=== PATIENT | male | born 1990 | race Hispanic/Latino ===

== ENCOUNTER 2023-01-06 11:27 | Emergency (ER) | payer BC ==
--- OUTSIDE RECORDS SUMMARY | 2023-01-06 11:33 | XMS REPORT | Continuity of Care Document ---
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 Reference Range Interpretation Comments Troponin-I (test code no gt See_Comment [Auto mated message] The = Troponin-I) system which g enerated this result transmit denise reference range : <=0.40. The reference r tc was not used to interpr et this result as miguel l/abnormal. [facility] [employer] [id number] 16:21:00 Test Item Value Reference Range Interpretation Comments CK MB (test code = CK MB) no gt 0.5-3.6 [facility] [employer] [id number] 16:21:00 Test Item Value Reference Range Interpretation Comments Total CK (test code = Total CK) 87 12-191 [facility] [employer] [id number] 16:21:00 Test Item Value Reference Range Interpretation Comments CK MB Index (test no gt See_Comment [Automate d message] The code = CK MB Index) system w [facility] generated this result transmit denise reference range : <=2.5. The reference range was not used to interpr et this result as miguel l/abnormal. [employer] [id number] 16:21:00 Test Item Value Reference Range Interpretation Comments Lipase Lvl (test code = Lipase Lvl) 132 73-393 [facility] [employer] [id number] 16:21:00 Test Item Value Reference Range Interpretation Comments eGFR (test code = eGFR) 99 [facility] [employer] [id number] 16:21:00 Test Item Value Reference Range Interpretation Comments Alk Phos (test code = Alk Phos) 65 39-136 [facility] [employer] [id number] 16:21:00 Test Item Value Reference Range Interpretation Comments Bili Total (test code = Bili Total) 0.5 0.2-1.3 [facility] Split2018-08-09 16:21:00 Test Item Value Reference Range Interpretation Comments A/G Ratio (test code = A/G Ratio) 1.1 1 0.7-1.6 [facility] [employer] [id number] 16:21:00 Test Item Value Reference Range Interpretation Comments Globulin (test code = Globulin) 3.8 2.7-4.2 [facility] Split2018-08-09 16:21:00 Test Item Value Reference Range Interpretation Comments B/C Ratio (test code = B/C Ratio) 15 1 6-25 [facility] [employer] [id number] 16:21:00 Test Item Value Reference Range Interpretation Comments AST (test code = AST) 17 See_Comment [Auto mated message] The system which ge nerated this result transmit denise reference range : <=37. The reference range was not used to interpr et this result as miguel l/abnormal. [facility]2018-08-09 16:21:00 Test Item Value Reference Range Interpretation Comments Total Protein (test code = Total 8.1 6.4-8.4 Protein) [facility]2018-08-09 16:21:00 Test Item Value Reference Range Interpretation Comments Creatinine Lvl (test code = Creatinine 1.01 0.50-1.40 Lvl) [facility]2018-08-09 16:21:00 Test Item Value Reference Range Interpretation Comments Potassium Lvl (test code = Potassium 4.3 3.5-5.1 Lvl) [facility]2018-08-09 16:21:00 Test Item Value Reference Range Interpretation Comments Sodium Lvl (test code = Sodium Lvl) 141 135-145 [facility]2018-08-09 16:21:00 Test Item Value Reference Range Interpretation Comments BUN (test code = BUN) 15 7-22 [facility]2018-08-09 16:21:00 Test Item Value Reference Range Interpretation Comments AGAP (test code = AGAP) 12.3 10.0-20.0 [facility]2018-08-09 16:21:00 Test Item Value Reference Range Interpretation Comments Chloride Lvl (test code = Chloride Lvl) 105 95-109 [facility]2018-08-09 16:21:00 Test Item Value Reference Range Interpretation Comments Albumin Lvl (test code = Albumin Lvl) 4.3 3.5-5.0 [facility]2018-08-09 16:21:00 Test Item Value Reference Range Interpretation Comments Glucose Lvl (test code = Glucose Lvl) 138 70-99 [facility]2018-08-09 16:21:00 Test Item Value Reference Range Interpretation Comments ALT (test code = ALT) 28 See_Comment [Auto mated message] The system which ge nerated this result transmit denise reference range : <=65. The reference range was not used to interpr et this result as miguel l/abnormal. [facility]2018-08-09 16:21:00 Test Item Value Reference Range Interpretation Comments Calcium Lvl (test code = Calcium Lvl) 9.1 8.5-10.5 [facility]2018-08-09 16:21:00 Test Item Value Reference Range Interpretation Comments CO2 (test code = CO2) 28 24-32 [facility]2018-08-09 16:21:00 Test Item Value Reference Range Interpretation Comments Magnesium Lvl (test code = Magnesium 2.1 1.8-2.4 Lvl) [id number] 16:21:00 Test Item Value Reference Range Interpretation Comments Hgb (test code = Hgb) 16.0 14.0-18.0 [id number] 16:21:00 Test Item Value Reference Range Interpretation Comments MCV (test code = MCV) 92.3 80.0-94.0 [facility] CenterNgvvgueQGARKXIZBB7885-28-18 16:21:00 Test Item Value Reference Range Interpretation Comments Hct (test code = Hct) 47.1 42.0-54.0 [facility] CenterZbjuphdJOUJYQHTFH9930-97-13 16:21:00 Test Item Value Reference Range Interpretation Comments MCHC (test code = MCHC) 34.0 32.0-36.0 [facility] [id number] 16:21:00 Test Item Value Reference Range Interpretation Comments MCH (test code = MCH) 31.4 pg 27.0-31.0 [facility] C[id number] 16:21:00 Test Item Value Reference Range Interpretation Comments MPV (test code = MPV) 7.7 7.4-10.4 [facility] Cent[id number] 16:21:00 Test Item Value Reference Range Interpretation Comments RDW (test code = RDW) 13.1 11.5-14.5 [facility] [id number] 16:21:00 Test Item Value Reference Range Interpretation Comments Platelet (test code = Platelet) 236 133-450 [facility] CenterZrfzknqVFZQEZAUTI1077-60-07 16:21:00 Test Item Value Reference Range Interpretation Comments WBC (test code = WBC) 5.9 3.7-10.4 [facility] Cent[id number] 16:21:00 Test Item Value Reference Range Interpretation Comments RBC (test code = RBC) 5.10 4.70-6.10 [place] [id number] 16:21:00 Test Item Value Reference Range Interpretation Comments Basophils # (test code 0.1 See_Comment [Aut omated message] The = Basophils #) system which generated this result tra nsmitted reference range : <=0.2. The reference r tc was not used to int erpret this result as normal/abnormal . [facility] CenterAxsvzuvJLEFPGFMGB4752-58-34 16:21:00 Test Item Value Reference Range Interpretation Comments Monocytes # (test code 0.5 See_Comment [Aut omated message] The = Monocytes #) system which generated this result tra nsmitted reference range : <=0.8. The reference r tc was not used to int erpret this result as normal/abnormal . [facility] CenterHyvgexrNDAHWNUFQV1381-04-00 16:21:00 Test Item Value Reference Range Interpretation Comments Eosinophils # (test code 0.1 See_Comment [A utomated message] The = Eosinophils #) system whic h generated this result tra nsmitted reference range : <=0.5. The reference r tc was not used to int erpret this result as normal/abnormal . [facility] [id number] 16:21:00 Test Item Value Reference Range Interpretation Comments Lymphocytes # (test code = Lymphocytes 2.3 1.0-5.5 #) [facility] CenterSjtofklUVFFHKFEUO8594-80-72 16:21:00 Test Item Value Reference Range Interpretation Comments Segs (test code = Segs) 51.8 45.0-75.0 [facility] CenterAoeiwyuKZJRZZTGIT6136-90-79 16:21:00 Test Item Value Reference Range Interpretation Comments Monocytes (test code = Monocytes) 7.9 2.0-12.0 [facility] C[id number] 16:21:00 Test Item Value Reference Range Interpretation Comments Lymphocytes (test code = Lymphocytes) 38.2 20.0-40.0 [facility] CenterK[id number] 16:21:00 Test Item Value Reference Range Interpretation Comments Basophils (test code = 1.0 See_Comment [Aut omated message] The Basophils) system which ge nerated this result tra nsmitted reference range : <=1.0. The reference r tc was not used to int erpret this result as normal/abnormal . [facility] C[id number] 16:21:00 Test Item Value Reference Range Interpretation Comments Eosinophils (test code = 1.1 See_Comment [A utomated message] The Eosinophils) system which ge nerated this result tra nsmitted reference range : <=4.0. The reference r tc was not used to int erpret this result as normal/abnormal . [id number] 16:21:00 Test Item Value Reference Range Interpretation Comments Neutrophils # (test code = Neutrophils 3.1 1.5-8.1 #) [facility] AND [id number] 16:50:00 Test Item Value Reference Range Interpretation Comments UA Blood (test code = Negative (08/27/17 11:50 UA Blood) AM) [facility] AND [id number] 16:50:00 Test Item Value Reference Range Interpretation Comments UA Nitrite (test code Negative (08/27/17 11:50 = UA Nitrite) AM) [facility] AND [id number] 16:50:00 Test Item Value Reference Range Interpretation Comments UA Leuk Est (test Negative (08/27/17 11:50 code = UA Leuk Est) AM) [facility] AND [id number] 16:50:00 Test Item Value Reference Range Interpretation Comments UA Urobilinogen (test code = UA 0.2 0.1-1.0 Urobilinogen) [facility] AND [id number] 16:50:00 Test Item Value Reference Range Interpretation Comments UA Sq Epi (test code = UA Sq Epi) Few /LPF [facility] AND [id number] 16:50:00 Test Item Value Reference Range Interpretation Comments UA Spec Grav (test *NA*(08/27/17 11:50 AM) code = UA Spec Grav) [facility] AND [id number] 16:50:00 Test Item Value Reference Range Interpretation Comments UA Turbidity (test code = Clear (08/27/17 11:50 UA Turbidity) AM) [facility] AND [id number] 16:50:00 Test Item Value Reference Range Interpretation Comments UA Glucose (test code Negative (08/27/17 11:50 = UA Glucose) AM) [facility] AND [id number] 16:50:00 Test Item Value Reference Range Interpretation Comments UA pH (test code = UA pH) 7.0 1 5.0-8.0 [facility] AND [id number] 16:50:00 Test Item Value Reference Range Interpretation Comments UA Protein (test code Negative (08/27/17 11:50 = UA Protein) AM) [facility] AND [id number] 16:50:00 Test Item Value Reference Range Interpretation Comments UA Ketones (test code Negative *NA*(08/27/17 = UA Ketones) 11:50 AM) [facility] AND [id number] 16:50:00 Test Item Value Reference Range Interpretation Comments UA Bili (test code = Negative *NA*(08/27/17 UA Bili) 11:50 AM) [facility] AND [id number] 16:50:00 Test Item Value Reference Range Interpretation Comments UA Color (test code = Yellow *NA*(08/27/17 UA Color) 11:50 AM) [facility]2017-11-02 16:35:00 Test Item Value Reference Range Interpretation Comments B/C Ratio (test code = B/C Ratio) 8 6-25 [facility]2017-11-02 16:35:00 Test Item Value Reference Range Interpretation Comments Globulin (test code = Globulin) 3.6 2.7-4.2 [facility]2017-11-02 16:35:00 Test Item Value Reference Range Interpretation Comments A/G Ratio (test code = A/G Ratio) 1.1 0.7-1.6 [facility]2017-11-02 16:35:00 Test Item Value Reference Range Interpretation Comments AGAP (test code = AGAP) 7.0 10.0-20.0 [facility]2017-11-02 16:35:00 Test Item Value Reference Range Interpretation Comments eGFR (test code = eGFR) 117 [facility]2017-11-02 16:35:00 Test Item Value Reference Range Interpretation Comments Potassium Lvl (test code = Potassium 4.0 3.5-5.1 Lvl) [facility]2017-11-02 16:35:00 Test Item Value Reference Range Interpretation Comments Sodium Lvl (test code = Sodium Lvl) 140 135-145 [facility]2017-11-02 16:35:00 Test Item Value Reference Range Interpretation Comments Chloride Lvl (test code = Chloride Lvl) 105 95-109 [facility]2017-11-02 16:35:00 Test Item Value Reference Range Interpretation Comments ASPARTATE TRANSAMINASE 29 See_Comment [Aut omated message] (test code = ASPARTATE The s ystem which TRANSAMINASE) generated this result transmitted ref erence range: <=37. Th e reference range was not used to interpr et this result as normal/abnormal . [facility]2017-11-02 16:35:00 Test Item Value Reference Range Interpretation Comments ALANINE AMINOTRANSFERASE 49 See_Comment [A utomated message] (test code = ALANINE The sys tem which AMINOTRANSFERASE) generated this result transmitted ref erence range: <=65. Th e reference range was not used to int erpret this result as normal/abnormal . [facility]2017-11-02 16:35:00 Test Item Value Reference Range Interpretation Comments Albumin Lvl (test code = Albumin Lvl) 4.0 3.5-5.0 [facility]2017-11-02 16:35:00 Test Item Value Reference Range Interpretation Comments Alk Phos (test code = Alk Phos) 54 39-136 [facility]2017-11-02 16:35:00 Test Item Value Reference Range Interpretation Comments Bili Total (test code = Bili Total) 0.2 0.2-1.3 [facility]2017-11-02 16:35:00 Test Item Value Reference Range Interpretation Comments Total Protein (test code = Total 7.6 6.4-8.4 Protein) [facility]2017-11-02 16:35:00 Test Item Value Reference Range Interpretation Comments Calcium Lvl (test code = Calcium Lvl) 8.6 8.5-10.5 [facility]2017-11-02 16:35:00 Test Item Value Reference Range Interpretation Comments CO2 (test code = CO2) 32 24-32 [facility]2017-11-02 16:35:00 Test Item Value Reference Range Interpretation Comments Glucose Lvl (test code = Glucose Lvl) 101 70-99 [facility]2017-11-02 16:35:00 Test Item Value Reference Range Interpretation Comments Creatinine Lvl (test code = Creatinine 0.87 0.50-1.40 Lvl) [facility]2017-11-02 16:35:00 Test Item Value Reference Range Interpretation Comments BUN (test code = BUN) 7 7-22 [facility]2017-11-02 16:35:00 Test Item Value Reference Range Interpretation Comments Lipase Lvl (test code = Lipase Lvl) 127 73-393 [facility]RzwspjgGOIJMVSZHB3672-35-46 16:35:00 Test Item Value Reference Range Interpretation Comments Basophils # (test code 0.1 See_Comment [Aut omated message] The = Basophils #) system which generated this result tra nsmitted reference range : <=0.2. The reference r tc was not used to int erpret this result as normal/abnormal . [facility] CenterRmqqhojBFDFDDESQG9092-26-00 16:35:00 Test Item Value Reference Range Interpretation Comments Lymphocytes # (test code = Lymphocytes 1.6 1.0-5.5 #) [facility] CenterFoonowiTBAKFPXMUL8784-78-37 16:35:00 Test Item Value Reference Range Interpretation Comments Segs-Bands # (test code = Segs-Bands #) 3.1 1.5-8.1 [place] [id number] 16:35:00 Test Item Value Reference Range Interpretation Comments Monocytes # (test code 0.4 See_Comment [Aut omated message] The = Monocytes #) system which generated this result tra nsmitted reference range : <=0.8. The reference r tc was not used to int erpret this result as normal/abnormal . [facility] [id number] 16:35:00 Test Item Value Reference Range Interpretation Comments Segs (test code = Segs) 58.5 45.0-75.0 [facility] CenterVjhydpoRKDTEXXWFM1242-92-13 16:35:00 Test Item Value Reference Range Interpretation Comments Lymphocytes (test code = Lymphocytes) 31.4 20.0-40.0 [facility] CenterCzwpxygCICGBBYCQB8844-81-12 16:35:00 Test Item Value Reference Range Interpretation Comments Eosinophils (test code = 0.9 See_Comment [A utomated message] The Eosinophils) system which ge nerated this result tra nsmitted reference range : <=4.0. The reference r tc was not used to int erpret this result as normal/abnormal . [facility] CenterQpsxbzdWFJGLHUGHZ0677-83-99 16:35:00 Test Item Value Reference Range Interpretation Comments Basophils (test code = 1.7 See_Comment [Aut omated message] The Basophils) system which ge nerated this result tra nsmitted reference range : <=1.0. The reference r tc was not used to int erpret this result as normal/abnormal . [facility] CenterIiedssxGHKOBQSHUN3640-19-28 16:35:00 Test Item Value Reference Range Interpretation Comments Monocytes (test code = Monocytes) 7.5 2.0-12.0 [facility] CenterKfhbxjuYOIGKPBVXM5669-35-60 16:35:00 Test Item Value Reference Range Interpretation Comments MCHC (test code = MCHC) 34.0 32.0-36.0 [facility] CenterRmdgapvABZBIRLHZI2004-95-21 16:35:00 Test Item Value Reference Range Interpretation Comments MCH (test code = MCH) 31.2 pg 27.0-31.0 [facility] CenterEwvptizMJCJSMBBWO7840-88-75 16:35:00 Test Item Value Reference Range Interpretation Comments Hct (test code = Hct) 44.9 42.0-54.0 [facility] CenterBtkxcpuLKXPCCDCPZ3367-20-32 16:35:00 Test Item Value Reference Range Interpretation Comments MCV (test code = MCV) 91.8 80.0-94.0 [facility] CenterSmfmyhgXVJXIPTCSY8540-66-22 16:35:00 Test Item Value Reference Range Interpretation Comments WBC X 10x3 (test code = WBC X 10x3) 5.2 3.7-10.4 [facility] CenterBtqajzhBAJLCZCOQT0046-02-11 16:35:00 Test Item Value Reference Range Interpretation Comments Hgb (test code = Hgb) 15.3 14.0-18.0 [facility] CenterSkpzaivAFSUAXFAJR3061-07-01 16:35:00 Test Item Value Reference Range Interpretation Comments RBC X 10x6 (test code = RBC X 10x6) 4.89 4.70-6.10 [facility] CenterPgxottiSCDYQGCGCZ6280-17-27 16:35:00 Test Item Value Reference Range Interpretation Comments MPV (test code = MPV) 7.7 7.4-10.4 [facility] CenterTjwjnmoCOPBGHONDS0104-05-06 16:35:00 Test Item Value Reference Range Interpretation Comments Platelet (test code = Platelet) 210 133-450 [facility]fhawiNXEXJLXQBY0882-19-37 16:35:00 Test Item Value Reference Range Interpretation Comments RDW (test code = RDW) 13.1 11.5-14.5 [facility]16[facility] 16:35:00 Test Item Value Reference Range Interpretation Comments Grp A Strep Scr (test Negative (08/27/17 11:35 code = Grp A Strep AM) Scr) [facility] [id number] 16:35:00 Test Item Value Reference Range Interpretation Comments Influ A (test code = Negative (08/27/17 11:35 Influ A) AM) [facility] [id number] 16:35:00 Test Item Value Reference Range Interpretation Comments Influ B (test code = Negative (08/27/17 11:35 Influ B) AM) [facility]
[2023-01-06] MEDS ORDERED: KETOROLAC 30 MG/ML INJ ONE (11:57)
[2023-01-06 12:08] LABS: Absolute Lymphocytes (CBC) 1.8 K/uL (0.7-4.9); Lymphocytes % 27.5 % (15.3-44.8); MCV 91.4 fL (80-100); MPV 7.5 fL (7.6-11.3); RBC Red Blood Cell Count 5.47 M/uL (4.33-5.43)
[2023-01-06] MEDS ORDERED: ALPRAZOLAM 0.5 MG TABLET ONE (12:18)
[2023-01-06 12:28] LABS: ALT/SGPT 20 U/L (16-61); AST/SGOT 9 U/L (15-37); Albumin 4.3 g/dL (3.4-5.0); Alkaline Phosphatase 79 U/L (45-117); BUN Blood Urea Nitrogen 12 mg/dL (7-18); Bicarbonate 30 mmol/L (21-32); Bilirubin Total 0.7 mg/dL (0.2-1.0); C-Reactive Protein < 2.90 mg/L (<3.00); Glomerular Filtration Rate 109 ml/min (=/>90); Glucose Level 101 mg/dL (74-106); Potassium 3.7 mmol/L (3.5-5.1); Protein, Total 8.7 g/dL (6.4-8.2); Sodium Level 134 mmol/L (136-145)
--- NOTE | 2023-01-06 12:41 | RAD REPORT ---
EXAM DESCRIPTION: CT - Head Brain Wo Cont - 01/06/2023 12:22 pm CLINICAL HISTORY: Headache and numbness COMPARISON: none TECHNIQUE: Computed axial tomography of the head was obtained. IV contrast was not requested. All CT scans are performed using dose optimization technique as appropriate and may include automated exposure control or mA/KV adjustment according to patient size. FINDINGS: An intracranial bleed is not seen The ventricles are normal in caliber No significant hypodense areas within the brain visualized No extra-axial fluid collection is noted. Fluid within the sinuses/ mastoids is not seen IMPRESSION: No acute intracranial abnormality is seen If patient's symptoms persist MRI of the brain would be recommended
[2023-01-06] MEDS ORDERED: MIDAZOLAM HCL 2 MG/2 ML INJ ONE (12:44)
--- NOTE | 2023-01-06 12:52 | RAD REPORT ---
EXAM DESCRIPTION: [place] Single View01/06/2023 12:30 pm CLINICAL HISTORY: Chest pain COMPARISON: none FINDINGS: The lungs appear clear of acute infiltrate. The heart is normal size IMPRESSION: No acute abnormalities displayed
[2023-01-06] MEDS ORDERED: dexAMETHasone 10 MG/ML VIAL ONE (14:09)
[2023-01-06] MEDS ORDERED: dexAMETHasone 4 MG/ML VIAL ONE (14:09)
--- NOTE | 2023-01-06 14:21 | RAD REPORT ---
EXAM DESCRIPTION: MRI - Thoracic Spine W/Wo Contr - 01/06/2023 2:01 pm CLINICAL HISTORY: Numbness COMPARISON: None. TECHNIQUE: Sagittal T1 weighted, T2 weighted and T2 STIR weighted sequences were obtained. Axial T2 weighted images were obtained through each disc level. At axial block images upper thoracic spine obtained. 15 cc MultiHance administered intravenously FINDINGS: 7.3 x 2.9 centimeter enhancing mass is present within the upper posterior left pleural spa ce. The mass extends posteriorly into the posterior musculature of the upper. The mass extends along the left aspect of the thoracic spine from T1-T5. Small portion of the mass also extends to the right of the thoracic spine at this level. The mass extends into the posterior aspect of the spinal canal from T2-T4 measuring 6.4 centimeters craniocaudal length and encircling the spinal cord and compressi ng it. The mass extends into the left and right neural foramina at these levels. There are additional enhancing lesions within the left neural foramina lower thoracic spine. 2.7 centimeter enhancing lesion within the posterior right musculature midthoracic spine. 6.4 x 1.4 x 1.7 centimeter enhancing mass (cc by AP by trans) extends along the posterior aspect of T2 - T4. The masses extra medullary. Lesion involves the T9 vertebral body with pathologic ktnr-xc-iunpsvyb compression fracture. Enhancin g lesions involve multiple thoracic vertebra. There are lesion scattered throughout the remainder of the thoracic spine. IMPRESSION: Left pleural, thoracic spine, thoracic spinal canal and neural foramina in muscular enha ncing lesions consistent with metastases. Pathologic gcyc-tb-znwgqjve compression fracture T9 vertebral body Largest thoracic spine lesion predominantly involves the posterior aspect of T2-T4 measuring 6.4 cent imeters in cranial caudal length and compressing the spinal cord
--- NOTE | 2023-01-06 14:23 | RAD REPORT ---
EXAM DESCRIPTION: MRI - Lumbar Spine Wo Con - 01/06/2023 1:18 pm CLINICAL HISTORY: Numbness COMPARISON: None TECHNIQUE: Sagittal T1, T2 and STIR weighted sequences were obtained. Axial T1 and T2 sequences were obtained through the lumbar disc levels. FINDINGS: L1-2, L2-3, L3-4 and L4-5 are unremarkable Mild posterior subluxation of L5 on S1. Small to moderate central disc herniation. It does not encroa ch upon the thecal sac. It abuts the right S1 nerve root but does not displace it. Large lesion L5 vertebral body IMPRESSION: Small to moderate central disc herniation L5-S1 Large lesion L5 vertebral body compatible with metastasis
--- NOTE | 2023-01-06 14:23 | RAD REPORT ---
EXAM DESCRIPTION: MRI - C Spine Wo Cont - 01/06/2023 1:32 pm CLINICAL HISTORY: Numbness COMPARISON: None TECHNIQUE: Magnetic resonance imaging of the cervical spine was obtained. Sagittal and axial images completed. FINDINGS: No significant abnormality craniocervical junction C2-3, C3-4 and C4-5 unremarkable Small disc bulge with annular fissure C5-6. Minimal encroachment upon the thecal sac. A 7 x 4 x 7 millimeter central subligamentous disc herniation C6-7 mildly encroaches upon the thecal sac. Neural foramina are patent C7-T1 unremarkable The spinal cord is normal caliber and signal. No significant abnormal signal within the bones is noted. IMPRESSION: Small to moderate central subligamentous disc herniation C6-7
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
[2023-01-06 21:04] VITALS: TEMP 97.4
[2023-01-06 21:07] VITALS: O2SAT 98
[2023-01-06 21:08] VITALS: BP 117/81
== END 2023-01-06 17:16 | disposition short-term general hospital (02) ==
LOC: ER 11:27
DX: M54.6 Pain in thoracic spine (principal); R53.1 Weakness; G95.89 Other specified diseases of spinal cord; Z20.822 Contact with and (suspected) exposure to COVID-19
CPT/HCPCS: 87040 ×2; 85025; 36415; 80053; 86140; 70450; 71045; 72141; 72148; 72157; 96375; 96374; 99285; U0003; J1100 ×2; J2250; 72146

== ENCOUNTER 2023-02-16 19:27 | Emergency (ER) | payer BC ==
--- OUTSIDE RECORDS SUMMARY | 2023-02-16 20:08 | XMS REPORT | Continuity of Care Document ---
:1990 Author Organization [facility] t Address [address] [place] [address] [place] [address] Care Team Providers Name Role Phone KATH LERMA Primary Care Physician Unavailable NICOLE CASTELLANOS Attending Clinician Unavailable NAOMY BUTCHER Attending Clinician Unavailable Nicole Castellanos MD Attending Clinician Virtual, Surgeon Attending Clinician Unavailable Christian CHAPA, Sally Thomas Attending Clinician Veronica Kirkland MD Attending Clinician [phone] Yuni CHAPA, Tra Barbosa Attending Clinician Cindy Emmanuel MD Attending Clinician CINDY EMMANUEL Attending Clinician Unavailable Jarred Branch RN Attending Clinician Unavailable Naomy Butcher NP Attending Clinician NICOLE CASTELLANOS Attending Clinician Unavailable Gogo CHAPA, José Manuel Attending Clinician Fazal Dhaliwal MD Attending Clinician VERONICA KIRKLAND Attending Clinician Unavailable Rubina Mireles MD Attending Clinician Bruna Adkins Attending Clinician Som Kamara MD Attending Clinician Corazon Monteiro Attending Clinician Ubaldo Hanley Attending Clinician Tahir Odonnell Attending Clinician Tahir Garcia Attending Clinician Physician, No Primary or Family Admitting Clinician UnavailNICOLE Moses Admitting Clinician Unavailable SALLY ALEXANDRA Admitting Clinician Unavailable NORBERT, FAZAL BARAHONA Admitting Clinician Unavailable Payers Payer Name Policy Type Policy Number Effective Date Expiration Date S dany BCBS ADV HMO [id number] 2022 EXCHANGE 00:00:00 Problems Condition Condition Condition Status Onset Resolution Last Treating Co mments Source Name Details Category Date Date Treatment Clinician Date 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 [facility] 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, lymphoma, 00 Cent er unspecifie unspecifie d body d body region region 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[facility] large B large B nce 3-30 [facility] cell cell 00:00: Medical lymphoma lymphoma 00 Center Anxiety Anxiety Disease Recurre [facility] n[facility] 3-14 [facility] 00:00: Medical 00 Center GERD GERD Disease Recurre [facility] (gastroeso (gastroeso nce 3-14 [place] kes phageal phageal 00:00: Medical reflux reflux 00 Center disease) disease) Spinal Spinal Disease Active [facility] cord cord 3-14 [facility] compressio compressio 00:00: Me dical n due to n due to 00 Center 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 12/21/2018 [facility] History of History Problem Resolve 2018-12-26 Memoria - of - d 01:41:11 l pneumonia pneumonia Herm rupinder (context-d (context-d ependent ependent category) category) Resolved Problem 12/26/2018 [facility] History of History Problem Resolve 2018-12-26 Memoria - surgery of - d 01:41:11 l (context-d surgery Chayo nn ependent (context-d category) ependent category) Resolved Problem 12/26/2018 [facility] Peritonsil Peritonsi Problem Resolve 2018-12-26 Memoria lar llar d 01:41:11 l abscess abscess [place] (disorder) (disorder) Resolved Problem 12/26/2018 [facility] Cord Cord Disease Resolve 2023-01-06 2023-01-[address] [facility] [address] compressio compressio d 3-14 00:00:00 22:02:03 [facility] n 00:00: Medical 00 Center History of Past Illness Condition Condition Condition Status Onset Resolution Last Treating Co mments Source Name Details Category Date Date Treatment Clinician Date Dorsalgia, Dorsalgia Problem 2018-2018-12-26 2018-12-26 Memoria unspecifie , 12-23 01:41:11 01:41:11 l d unspecifie 06:00: Rakesh n d 00 12/23/2018 12/26/2018 [facility] Headache Headache Problem 2017-2018-12-21 2018-12-21 Memoria 06/03/201806-03 16:23:23 16:23:23 l 05:00: Rakesh wilson 9 MH 00 [place] Nausea Nausea Problem 2016-102017-08-30 2017-08-30 Memoria with with 10-27 02:32:04 02:32:04 l vomiting, vomiting, 05:00: Herm rupinder unspecifie unspecifie 00 d d 08/27/2017 7 [facility] [place] Discharge Discharge Problem 2015-05-05 2015-05-05 Memclay Diagnosis: Diagnosis: 05-02 05:46:35 05:46:35 l Vertigo Vertigo 05:00: Gerardo 05/02/2015 5 MH [facility] Allergies, Adverse Reactions, Alerts Allergy Allergy Status Severity Reaction(s) Onset Inactive Treating Comm ents Source Name Type Date Date Clinician No Known DA Active [facility] All[facility]ie 02-03 [facility] named [facility] s 00:00: d 00 Medical Center NO KNOWN Allergy Active [facility] Family History Family Member Diagnosis Comments Start Date Stop Date Source Natural sister Endometrial cancer [facility] Social History Social Habit Start Date Stop Date Quantity Comments Source History of tobacco Current smoker [facility] use [facility] History SDOH [facility]-Med Medical [facility] Exposure to 2023-01-20 2023-01-[address] [facility] SARS-CoV-2 (event) 00:00:00 07:30:00 Medica l Center Alcohol intake 2023-01-30 2023-01-30 Ex-drinker [facility] 00:00:00 00:00:00 (finding) Medical Center Tobacco use and 2023-01-22 2023-01-22 Smokeless tobacco [facility] exposure 00:00:00 00:00:00 non-user Medical Center History [facility] 2023-01-22 2023-01-[address] [facility] Transport Med 00:00:00 00:00:[address] History SDRI 2023-01-22 2023-01-[address] [facility] Housing Unable to 00:00:00 00:00:00 Medical Center Pay History [facility] 2023-01-22 2023-01-[address] [facility] Housing Places 00:00:00 00:00:00 Medical Ce nter Lived History [facility] 2023-01-22 2023-01-[address] [facility] Homeless 00:00:00 00:00:00 [facility] Last Year Tobacco Comment 2023-01-22 2023-01-[address] [facility] 00:00:00 00:00:00 2020, now quit Medical Ce nter Cigarettes smoked 2023-01-21 2023-01-21 [facility] current (pack per 00:00:00 00:00:00 of Medi FastFig day) - Reported Cigarette 2023-01-21 2023-01-21 [facility] pack-years 00:00:00 00:00:00 of Medicine History PAOH 2023-01-12 2023-01-12 5 [facility] Physical Activity 00:00:00 00:00:00 of Medi cine DPW History [facility] 2023-01-12 2023-01-12 2 [facility] Physical Activity 00:00:00 00:00:00 of Medi cine MPS Alcohol Comment 2023-01-06 2023-01-06 once aweek [facility] kes 00:00:00 00:00:00 [facility] Social History 2017-08-27 2017-08-27 [facility] 17:51:32 17:51:32 [birth year] [facility] l[facility] 00:00:00 00:00:00 of Medicine Smoking Status Start Date Stop Date Source Ex-smoker 2023-01-22 00:00:00 2023-01-22 00:00:00 [facility] Smokes tobacco daily 2023-01-06 00:00:00 [facility] Social [facility] Medications Ordered Filled Start Stop Current Ordering Indication Dosage Frequency Signature Comments Components Source Medication Medication Date Date Medication? Clinician (SIG) Name Name diazePAM Yes 5mg Q.5D Take [address] [facility] (VALIUM) 5 4-08 tablet (5 Luke s MG tablet 06:25: mg total) Med ical 01 by mouth Center in the morning and 1 tablet (5 mg total) before bedtime. traZODone Yes 25mg QD Take 0.[address] [facility] (DESYREL) 4-08 tablets [facility] 50 MG 06:25: (25 mg Medical tablet 01 total) by Center mouth nightly. gabapentin 2023-0 Yes 300mg Q.[id number] Take [address] [facility] (NEURONTIN) 4-08 [id number] capsule [facility] 300 MG 06:25: 3D (300 mg Medical capsule 01 total) by Center mouth in the morning and 1 capsule (300 mg total) at noon and 1 capsule (300 mg total) in the evening. pantoprazol 2023-0 Yes 40mg QD Take [address] [facility] e 4-08 tablet (40 [facility] (PROTONIX) 06:25: mg total) Me dical 40 MG 01 by mouth Center tablet in the morning. docusate 2023-0 Yes 100mg Q.5D Take [address] [facility] sodium 4-08 capsule [facility] (COLACE) 06:25: (100 mg Medica l 100 MG 01 total) by Center capsule mouth in the morning and 1 capsule (100 mg total) before bedtime. escitalopra 2023-0 Yes 10mg QD Take [address] [facility] m oxalate 4-08 tablet (10 Luke [facility] (LEXAPRO) 06:25: mg total) Med ical 10 MG 01 by mouth Center tablet in the morning. ondansetron 2023-0 Yes 4mg Take [address] [facility] (ZOFRAN) 4 4-08 tablet (4 Luke s MG tablet 06:25: mg total) Med ical 01 by mouth Center every 6 (six) hours as needed for Nausea. busPIRone 2023-0 Yes 5mg Q.[id number] Take [address] [facility] [address] (BUSPAR) 5 4-08 [id number] tablet (5 [facility] MG tablet 06:25: 3D mg total) Med ical 01 by mouth Center in the morning and 1 tablet (5 mg total) at noon and 1 tablet (5 mg total) in the evening. diazePAM 2023-0 Yes 5mg Q.5D Take [address] [facility] [address] (VALIUM) 5 4-08 tablet (5 Luke s MG tablet 06:25: mg total) Med ical 01 by mouth Center in the morning and 1 tablet (5 mg total) before bedtime. traZODone 2023-0 Yes 25mg QD Take 0.[address] [facility] (DESYREL) 4-08 tablets [facility] 50 MG 06:25: (25 mg Medical tablet 01 total) by Center mouth nightly. gabapentin 2023-0 Yes 300mg Q.[id number] Take [address] [facility] (NEURONTIN) 4-08 [id number] capsule [facility] 300 MG 06:25: 3D (300 mg Medical capsule 01 total) by Center mouth in the morning and 1 capsule (300 mg total) at noon and 1 capsule (300 mg total) in the evening. pantoprazol 2023-0 Yes 40mg QD Take [address] [facility] e 4-08 tablet (40 [facility] (PROTONIX) 06:25: mg total) Me dical 40 MG 01 by mouth Center tablet in the morning. docusate 2023-0 Yes 100mg Q.5D Take [address] [facility] sodium 4-08 capsule [facility] (COLACE) 06:25: (100 mg Medica l 100 MG 01 total) by Center capsule mouth in the morning and 1 capsule (100 mg total) before bedtime. escitalopra 2023-0 Yes 10mg QD Take [address] [facility] m oxalate 4-08 tablet (10 Luke [facility] (LEXAPRO) 06:25: mg total) Med ical 10 MG 01 by mouth Center tablet in the morning. ondansetron 2023-0 Yes 4mg Take [address] [facility] (ZOFRAN) 4 4-08 tablet (4 Luke s MG tablet 06:25: mg total) Med ical 01 by mouth Center every 6 (six) hours as needed for Nausea. busPIRone 2023-0 Yes 5mg Q.[id number] Take [address] [facility] (BUSPAR) 5 4-08 [id number] tablet (5 [facility] MG tablet 06:25: 3D mg total) Med ical 01 by mouth Center in the morning and 1 tablet (5 mg total) at noon and 1 tablet (5 mg total) in the evening. diazePAM 2023-0 Yes 5mg Q.5D Take [address] [facility] [address] (VALIUM) 5 4-08 tablet (5 Luke s MG tablet 06:25: mg total) Med ical 01 by mouth Center in the morning and 1 tablet (5 mg total) before bedtime. traZODone 2023-0 Yes 25mg QD Take 0.[address] [facility] [address] (DESYREL) 4-08 tablets [facility] 50 MG 06:25: (25 mg Medical tablet 01 total) by Center mouth nightly. gabapentin 2023-0 Yes 300mg Q.[id number] Take [address] [facility] (NEURONTIN) 4-08 [id number] capsule [facility] 300 MG 06:25: 3D (300 mg Medical capsule 01 total) by Center mouth in the morning and 1 capsule (300 mg total) at noon and 1 capsule (300 mg total) in the evening. pantoprazol 2023-0 Yes 40mg QD Take [address] [facility] e 4-08 tablet (40 [facility] (PROTONIX) 06:25: mg total) Me dical 40 MG 01 by mouth Center tablet in the morning. docusate 2023-0 Yes 100mg Q.5D Take [address] [facility] sodium 4-08 capsule [facility] (COLACE) 06:25: (100 mg Medica l 100 MG 01 total) by Center capsule mouth in the morning and 1 capsule (100 mg total) before bedtime. escitalopra 2023-0 Yes 10mg QD Take [address] [facility] m oxalate 4-08 tablet (10 Luke s (LEXAPRO) 06:25: mg total) Med ical 10 MG 01 by mouth Center tablet in the morning. ondansetron 2023-0 Yes 4mg Take [address] [facility] (ZOFRAN) 4 4-08 tablet (4 [facility] MG tablet 06:25: mg total) Med ical 01 by mouth Center every 6 (six) hours as needed for Nausea. busPIRone 2023-0 Yes 5mg Q.[id number] Take [address] [facility] (BUSPAR) 5 4-08 [id number] tablet (5 [facility] MG tablet 06:25: 3D mg total) Med ical 01 by mouth Center in the morning and 1 tablet (5 mg total) at noon and 1 tablet (5 mg total) in the evening. bisacodyL 2023-0 2023- No 5mg Q.5D Take 1 [facility] (DULCOLAX) 4-08 03-30 tablet (5 He es 5 mg EC 06:25: 00:00 mg total) Medi lu tablet 01 :00 by mouth Center in the morning and 1 tablet (5 mg total) before bedtime. bisacodyL 2023-0 2023- No 5mg Q.5D Take 1 [facility] (DULCOLAX) 4-08 03-30 tablet (5 He es 5 mg EC 06:25: 00:00 mg total) Medi lu tablet 01 :00 by mouth Center in the morning and 1 tablet (5 mg total) before bedtime. bisacodyL 2022-0 2022- No 5mg Q.5D Take 1 [facility] (DULCOLAX) 01-31 03-30 tablet (5 He es 5 mg EC 06:25: 00:00 mg total) Medi lu tablet 01 :00 by mouth Center in the morning and 1 tablet (5 mg total) before bedtime. nicotine 2022- Yes 1{patch QD Place [address] (NICODERM 4-07 05-07 } patch onto He es CQ) 21 00:00: 23:59 the skin Medica l mg/24 hr 00 :00 in the Center patch morning for 30 days. nicotine 2022-0 2022- Yes 1{patch QD Place [address] [facility] (NICODERM 4-07 05-07 } patch onto He es CQ) 21 00:00: 23:59 the skin Medica l mg/24 hr 00 :00 in the Center patch morning for 30 days. nicotine 2022- Yes 1{patch QD Place [address] (NICODERM 4-07 05-07 } patch onto He es CQ) 21 00:00: 23:59 the skin Medica l mg/24 hr 00 :00 in the Center patch morning for 30 days. gabapentin 0 Yes 300mg Take 1 [facility] (NEURONTIN) 3-23 capsule by Co llege 300 MG 00:00: mouth 3 of capsule 00 times Medicin daily. e diazepam 0 Yes TAKE 1 [facility] (VALIUM) 5 3-20 TABLET BY Megan ege MG tablet 00:00: MOUTH ONCE of 00 DAILY Medicin NEEDED FOR e SEVERE ANXIETY polyethylen 2022-0 Yes 17g QD Take [address] e glycol 3-18 by mouth [facility] (GLYCOLAX) 00:00: daily. Medic al 17 gram 00 Center packet polyethylen 2022-0 Yes 17g QD Take [address] e glycol 3-18 by mouth [facility] (GLYCOLAX) 00:00: daily. Medic al 17 gram 00 Center packet polyethylen 2022-0 Yes 17g QD Take [address] e glycol 3-18 by mouth [facility] (GLYCOLAX) 00:00: daily. Medic al 17 gram 00 Center packet polyethylen 2023-0 Yes 17g QD Take [address] e glycol 3-18 by mouth [facility] (GLYCOLAX) 00:00: daily. Medic al 17 gram 00 Center packet polyethylen 2023-0 Yes 17g QD Take [address] e glycol 3-18 by mouth [facility] (GLYCOLAX) 00:00: daily. Medic al 17 gram 00 Center packet polyethylen 2023-0 Yes 17g Take 17 g [facility] e glycol 3-18 by mouth College (GLYCOLAX) 00:00: daily. of 17 GM/SCOOP 00 Medicin powder e polyethylen 2023-0 2023- No 17g QD Take [address] [facility] e glycol 3-18 03-30 by mouth [facility] (GLYCOLAX) 00:00: 00:00 daily. Medi lu 17 gram 00 :00 Center packet polyethylen 2023-0 2023- No 17g QD Take [address] [facility] e glycol 3-18 03-30 by mouth [facility] (GLYCOLAX) 00:00: 00:00 daily. Medi lu 17 gram 00 :00 Center packet polyethylen 2023-0 2023- No 17g QD Take [address] [facility] e glycol 3-18 03-30 by mouth [facility] (GLYCOLAX) 00:00: 00:00 daily. Medi lu 17 gram 00 :00 Center packet OLANZapine 3-0 Yes 2.5mg Take [address] [facility] (ZYPREXA) 3-17 tablet [facility] 2.5 MG 00:00: (2.5 mg Medical tablet 00 total) by Center mouth every night as needed (anxiety). HYDROcodone 3-0 Yes 1{tbl} Take [address] -acetaminop 3-17 tablet by He es angel ([place]) 00:00: mouth Medic al 5-325 mg 00 every 6 Center per tablet (six) hours as needed for Pain. Max Daily Amount: 4 tablets methocarbam 3-0 Yes 750mg Take [address] [facility] oL 3-17 tablet [facility] (ROBAXIN) 00:00: (750 mg Medic al 750 MG 00 total) by Center tablet mouth 4 (four) times daily as needed (muscle spasms). OLANZapine 3-0 Yes 2.5mg Take [address] [facility] (ZYPREXA) 3-17 tablet [facility] 2.5 MG 00:00: (2.5 mg Medical tablet 00 total) by Center mouth every night as needed (anxiety). HYDROcodone 2023-0 Yes 1{tbl} Take [address] -acetaminop 3-17 tablet by He es hen (netomat) 00:00: mouth Medic al 5-325 mg 00 every 6 Center per tablet (six) hours as needed for Pain. Max Daily Amount: 4 tablets methocarbam 2023-0 Yes 750mg Take [address] [facility] oL 3-17 tablet [facility] (ROBAXIN) 00:00: (750 mg Medic al 750 MG 00 total) by Center tablet mouth 4 (four) times daily as needed (muscle spasms). OLANZapine 2023-0 Yes 2.5mg Take [address] [facility] (ZYPREXA) 3-17 tablet [facility] 2.5 MG 00:00: (2.5 mg Medical tablet 00 total) by Center mouth every night as needed (anxiety). HYDROcodone 2023-0 Yes 1{tbl} Take [address] -acetaminop 3-17 tablet by He es hen (netomat) 00:00: mouth Medic al 5-325 mg 00 every 6 Center per tablet (six) hours as needed for Pain. Max Daily Amount: 4 tablets methocarbam 2023-0 Yes 750mg Take [address] [facility] oL 3-17 tablet [facility] (ROBAXIN) 00:00: (750 mg Medic al 750 MG 00 total) by Center tablet mouth 4 (four) times daily as needed (muscle spasms). OLANZapine 2023-0 Yes 2.5mg Take [address] [facility] (ZYPREXA) 3-17 tablet [facility] 2.5 MG 00:00: (2.5 mg Medical tablet 00 total) by Center mouth every night as needed (anxiety). HYDROcodone 2023-0 Yes 1{tbl} Take [address] -acetaminop 3-17 tablet by He es hen (netomat) 00:00: mouth Medic al 5-325 mg 00 every 6 Center per tablet (six) hours as needed for Pain. Max Daily Amount: 4 tablets methocarbam 2023-0 Yes 750mg Take [address] [facility] oL 3-17 tablet [facility] (ROBAXIN) 00:00: (750 mg Medic al 750 MG 00 total) by Center tablet mouth 4 (four) times daily as needed (muscle spasms). OLANZapine 3-0 Yes 2.5mg Take [address] [facility] (ZYPREXA) 3-17 tablet [facility] 2.5 MG 00:00: (2.5 mg Medical tablet 00 total) by Center mouth every night as needed (anxiety). HYDROcodone 2022-0 Yes 1{tbl} Take [address] -acetaminop 3-17 tablet by He [facility] (netomat) 00:00: mouth Medic al 5-325 mg 00 every 6 Center per tablet (six) hours as needed for Pain. Max Daily Amount: 4 tablets methocarbam 2022-0 Yes 750mg Take [address] [facility] oL 3-17 tablet [facility] (ROBAXIN) 00:00: (750 mg Medic al 750 MG 00 total) by Center tablet mouth 4 (four) times daily as needed (muscle spasms). OLANZapine 2022-0 2022- No 2.5mg Take [address] [facility] [address] (ZYPREXA) 3-17 03-30 tablet [facility] 2.5 MG 00:00: 00:00 (2.5 mg Medical tablet 00 :00 total) by Center mouth every night as needed (anxiety). HYDROcodone 2022-0 2022- No 1{tbl} Take [address] -acetaminop 3-17 03-30 tablet by [place] [facility] (netomat) 00:00: 00:00 mouth Medi lu 5-325 mg 00 :00 every 6 Center per tablet (six) hours as needed for Pain. Max Daily Amount: 4 tablets methocarbam 3-0 3- No 750mg Take [address] oL 3-17 03-30 tablet [facility] (ROBAXIN) 00:00: 00:00 (750 mg Medi lu 750 MG 00 :00 total) by Center tablet mouth 4 (four) times daily as needed (muscle spasms). OLANZapine 2022-0 3- No 2.5mg Take [address] [facility] (ZYPREXA) 3-17 03-30 tablet [facility] 2.5 MG 00:00: 00:00 (2.5 mg Medical tablet 00 :00 total) by Center mouth every night as needed (anxiety). HYDROcodone 2022-0 3- No 1{tbl} Take [address] -acetaminop 3-17 03-30 tablet by [place] [facility] (netomat) 00:00: 00:00 mouth Medi lu 5-325 mg 00 :00 every 6 Center per tablet (six) hours as needed for Pain. Max Daily Amount: 4 tablets methocarbam 2023-0 2023- No 750mg Take [address] oL 3-17 03-30 tablet [facility] (ROBAXIN) 00:00: 00:00 (750 mg Medi lu 750 MG 00 :00 total) by Center tablet mouth 4 (four) times daily as needed (muscle spasms). OLANZapine 2023-0 2023- No 2.5mg Take [address] [facility] (ZYPREXA) 3-17 -30 tablet [facility] 2.5 MG 00:00: 00:00 (2.5 mg Medical tablet 00 :00 total) by Center mouth every night as needed (anxiety). HYDROcodone 2023-0 2023- No 1{tbl} Take [address] -acetaminop 3-17 03-30 tablet by [place] [facility] (netomat) 00:00: 00:00 mouth Medi lu 5-325 mg 00 :00 every 6 Center per tablet (six) hours as needed for Pain. Max Daily Amount: 4 tablets methocarbam 2023-0 2023- No 750mg Take [address] oL 3-17 03-30 tablet [facility] (ROBAXIN) 00:00: 00:00 (750 mg Medi lu 750 MG 00 :00 total) by Center tablet mouth 4 (four) times daily as needed (muscle spasms). hydrocodone 2023-0 2023- No 1{tbl} Take 1 [facility] -acetaminop 3-17 -29 Tablet by Марина ortiz (ProMed) 00:00: 00:00 mouth. of 5-325 mg 00 :00 Medicin tablet e methocarbam 2023-0 2023- No 750mg Take 750 [facility] ol 3-17 03-29 mg by [place] (ROBAXIN) 00:00: 00:00 mouth. of 750 MG 00 :00 Medicin tablet e olanzapine 2023-0 2023- No 2.5mg Take 2.5 [facility] (ZYPREXA) 3-17 03-29 mg by [place] 2.5 MG 00:00: 00:00 mouth. of tablet 00 :00 Medicin e dexAMETHaso 2022- No Take [address] [facility] ne 3-17 -21 tablets (4 [facility] (DECADRON) 00:00: 23:59 mg total) M edical 2 MG tablet 00 :00 by mouth 2 Ce nter (two) times daily with breakfast and dinner for 1 day, THEN 1 tablet (2 mg total) 2 (two) times daily with breakfast and dinner for 2 days, THEN 1 tablet (2 mg total) daily with breakfast for 1 day. dexAMETHaso 2022-2022- No Take [address] [facility] ne 3-17 -21 tablets (4 [facility] (DECADRON) 00:00: 23:59 mg total) M edical 2 MG tablet 00 :00 by mouth 2 Ce nter (two) times daily with breakfast and dinner for 1 day, THEN 1 tablet (2 mg total) 2 (two) times daily with breakfast and dinner for 2 days, THEN 1 tablet (2 mg total) daily with breakfast for 1 day. dexAMETHaso 2022-2022- No Take [address] [facility] ne 3-17 -21 tablets (4 [facility] (DECADRON) 00:00: 23:59 mg total) M edical 2 MG tablet 00 :00 by mouth 2 Ce nter (two) times daily with breakfast and dinner for 1 day, THEN 1 tablet (2 mg total) 2 (two) times daily with breakfast and dinner for 2 days, THEN 1 tablet (2 mg total) daily with breakfast for 1 day. dexAMETHaso 2022-2022- No Take [address] [facility] ne 3-17 -21 tablets (4 [facility] (DECADRON) 00:00: 23:59 mg total) M edical 2 MG tablet 00 :00 by mouth 2 Ce nter (two) times daily with breakfast and dinner for 1 day, THEN 1 tablet (2 mg total) 2 (two) times daily with breakfast and dinner for 2 days, THEN 1 tablet (2 mg total) daily with breakfast for 1 day. dexAMETHaso 2022-2022- No Take [address] [facility] ne 3-17 -21 tablets (4 [facility] (DECADRON) 00:00: 23:59 mg total) M edical 2 MG tablet 00 :00 by mouth 2 Ce nter (two) times daily with breakfast and dinner for 1 day, THEN 1 tablet (2 mg total) 2 (two) times daily with breakfast and dinner for 2 days, THEN 1 tablet (2 mg total) daily with breakfast for 1 day. dexAMETHaso 2022-2022- No Take 2 [facility] 01-09-21 tablets (4 [facility] (DECADRON) 00:00: 23:59 mg total) M edical 2 MG tablet 00 :00 by mouth 2 Ce nter (two) times daily with breakfast and dinner for 1 day, THEN 1 tablet (2 mg total) 2 (two) times daily with breakfast and dinner for 2 days, THEN 1 tablet (2 mg total) daily with breakfast for 1 day. dexAMETHaso 2022-2022- No Take 2 [facility] 01-0921 tablets (4 [facility] (DECADRON) 00:00: 23:59 mg total) M edical 2 MG tablet 00 :00 by mouth 2 Ce nter (two) times daily with breakfast and dinner for 1 day, THEN 1 tablet (2 mg total) 2 (two) times daily with breakfast and dinner for 2 days, THEN 1 tablet (2 mg total) daily with breakfast for 1 day. dexAMETHaso 2022-0 2022- No Take 2 [facility] 01-0921 tablets (4 [facility] (DECADRON) 00:00: 23:59 mg total) M edical 2 MG tablet 00 :00 by mouth 2 Ce nter (two) times daily with breakfast and dinner for 1 day, THEN 1 tablet (2 mg total) 2 (two) times daily with breakfast and dinner for 2 days, THEN 1 tablet (2 mg total) daily with breakfast for 1 day. Motrin 600 2019-0 Yes 600 mg = 1 M em[facility] mg oral 2-28 tab, PO, l tablet 16:25: Q6H, PRN [place] 00 Pain, take with food, X 5 day, # 20 tab, 0 Refill(s) Motrin 600 2019-0 Yes 600 mg = 1 M emoria mg oral 2-28 tab, PO, l tablet 16:25: Q6H, PRN [place] 00 Pain, take with food, X 5 day, # 20 tab, 0 Refill(s) Motrin 600 2019-0 Yes 600 mg = 1 M emoria mg oral 2-28 tab, PO, l tablet 16:25: Q6H, PRN [place] 00 Pain, take with food, X 5 day, # 20 tab, 0 Refill(s) Motrin 600 2019-0 Yes 600 mg = 1 M emoria mg oral 2-28 tab, PO, l tablet 16:25: Q6H, PRN [place] 00 Pain, take with food, X 5 day, # 20 tab, 0 Refill(s) Motrin 600 2019-0 Yes 600 mg = 1 M emoria mg oral 2-28 tab, PO, l tablet 16:25: Q6H, PRN [place] 00 Pain, take with food, X 5 day, # 20 tab, 0 Refill(s) Motrin 600 2019-0 Yes 600 mg = 1 M emoria mg oral 2-28 tab, PO, l tablet 16:25: Q6H, PRN [place] 00 Pain, take with food, X 5 day, # 20 tab, 0 Refill(s) Motrin 600 2019-0 Yes 600 mg = 1 M emoria mg oral 2-28 tab, PO, l tablet 16:25: Q6H, PRN [place] 00 Pain, take with food, X 5 day, # 20 tab, 0 Refill(s) Motrin 600 2019-0 Yes 600 mg = 1 M emoria mg oral 2-28 tab, PO, l tablet 16:25: Q6H, PRN [place] 00 Pain, take with food, X 5 day, # 20 tab, 0 Refill(s) Motrin 600 2019-0 Yes 600 mg = 1 M emoria mg oral 2-28 tab, PO, l tablet 16:25: Q6H, PRN [place] 00 Pain, take with food, X 5 day, # 20 tab, 0 Refill(s) Motrin 600 2019-0 Yes 600 mg = 1 M emoria mg oral 2-28 tab, PO, l tablet 16:25: Q6H, PRN [place] 00 Pain, take with food, X 5 day, # 20 tab, 0 Refill(s) Motrin 600 2019-0 Yes 600 mg = 1 M emoria mg oral 2-28 tab, PO, l tablet 16:25: Q6H, PRN [place] 00 Pain, take with food, X 5 day, # 20 tab, 0 Refill(s) Motrin 600 2019- Yes 600 mg = 1 M emoria mg oral 2-28 tab, PO, l tablet 16:25: Q6H, PRN [place] 00 Pain, take with food, X 5 day, # 20 tab, 0 Refill(s) {2018- Yes See [facility] (Methylpred 2-28 Instructio l nisolone 4 16:24: ns, PO, Herm rupinder MG Oral 00 Take by Tablet mouth as [Medrol]) } directed Pack on label., [Medrol # 1 Pack, Dosepak] 0 Refill(s) Diazepam 2018- Yes 5 mg = 1 Mem oria MG Oral 2-28 tab, PO, l Tablet 16:24: QID, PRN [place] [Valium] 00 Pain Score 6-10, X 7 day, # 20 tab, 0 Refill(s) { Yes See [facility] (Methylpred 2-28 Instructio l nisolone 4 16:24: ns, PO, Herm rupinder MG Oral 00 Take by Tablet mouth as [Medrol]) } directed Pack on label., [Medrol # 1 Pack, Dosepak] 0 Refill(s) Diazepam 5 2018- Yes 5 mg = 1 Mem oria MG Oral 2-28 tab, PO, l Tablet 16:24: QID, PRN [place] [Valium] 00 Pain Score 6-10, X 7 day, # 20 tab, 0 Refill(s) {2018- Yes See [facility] (Methylpred 2-28 Instructio l nisolone 4 16:24: ns, PO, Herm rupinder MG Oral 00 Take by Tablet mouth as [Medrol]) } directed Pack on label., [Medrol # 1 Pack, Dosepak] 0 Refill(s) Diazepam 5 2018- Yes 5 mg = 1 Mem [facility] MG Oral 2-28 tab, PO, l Tablet 16:24: QID, PRN [place] [Valium] 00 Pain Score 6-10, X 7 day, # 20 tab, 0 Refill(s) {2018- Yes See [facility] (Methylpred 2-28 Instructio l nisolone 4 16:24: ns, PO, Herm rupinder MG Oral 00 Take by Tablet mouth as [Medrol]) } directed Pack on label., [Medrol # 1 Pack, Dosepak] 0 Refill(s) Diazepam 5 2018-0 Yes 5 mg = 1 Mem o[facility] MG Oral 2-28 tab, PO, l Tablet 16:24: QID, PRN [place] [Valium] 00 Pain Score 6-10, X 7 day, # 20 tab, 0 Refill(s) { Yes See [facility] (Methylpred 2-28 Instructio l nisolone 4 16:24: ns, PO, Herm rupinder MG Oral 00 Take by Tablet mouth as [Medrol]) } directed Pack on label., [Medrol # 1 Pack, Dosepak] 0 Refill(s) Diazepam 5 2018- Yes 5 mg = 1 Mem o[facility] MG Oral 2-28 tab, PO, l Tablet 16:24: QID, PRN [place] [Valium] 00 Pain Score 6-10, X 7 day, # 20 tab, 0 Refill(s) { Yes See [facility] (Methylpred 2-28 Instructio l nisolone 4 16:24: ns, PO, Herm rupinder MG Oral 00 Take by Tablet mouth as [Medrol]) } directed Pack on label., [Medrol # 1 Pack, Dosepak] 0 Refill(s) Diazepam 5 2018- Yes 5 mg = 1 Mem [facility] MG Oral 2-28 tab, PO, l Tablet 16:24: QID, PRN [place] [Valium] 00 Pain Score 6-10, X 7 day, # 20 tab, 0 Refill(s) { Yes See [facility] (Methylpred 2-28 Instructio l nisolone 4 16:24: ns, PO, Herm rupinder MG Oral 00 Take by Tablet mouth as [Medrol]) } directed Pack on label., [Medrol # 1 Pack, Dosepak] 0 Refill(s) Diazepam 5 2018-0 Yes 5 mg = 1 Mem o[facility] MG Oral 2-28 tab, PO, l Tablet 16:24: QID, PRN [place] [Valium] 00 Pain Score 6-10, X 7 day, # 20 tab, 0 Refill(s) {21 2019-0 Yes See [facility] (Methylpred 2-28 Instructio l nisolone 4 16:24: ns, PO, Herm rupinder MG Oral 00 Take by Tablet mouth as [Medrol]) } directed Pack on label., [Medrol # 1 Pack, Dosepak] 0 Refill(s) Diazepam 5 2018- Yes 5 mg = 1 Mem [facility] MG Oral 2-28 tab, PO, l Tablet 16:24: QID, PRN [place] [Valium] 00 Pain Score 6-10, X 7 day, # 20 tab, 0 Refill(s) { Yes See [facility] (Methylpred 2-28 Instructio l nisolone 4 16:24: ns, PO, Herm rupinder MG Oral 00 Take by Tablet mouth as [Medrol]) } directed Pack on label., [Medrol # 1 Pack, Dosepak] 0 Refill(s) Diazepam 5 Yes 5 mg = 1 Mem [facility] MG Oral 2-28 tab, PO, l Tablet 16:24: QID, PRN [place] [Valium] 00 Pain Score 6-10, X 7 day, # 20 tab, 0 Refill(s) { Yes See [facility] (Methylpred 2-28 Instructio l nisolone 4 16:24: ns, PO, Herm rupinder MG Oral 00 Take by Tablet mouth as [Medrol]) } directed Pack on label., [Medrol # 1 Pack, Dosepak] 0 Refill(s) Diazepam 5 Yes 5 mg = 1 Mem [facility] MG Oral 2-28 tab, PO, l Tablet 16:24: QID, PRN [place] [Valium] 00 Pain Score 6-10, X 7 day, # 20 tab, 0 Refill(s) { Yes See [facility] (Methylpred 2-28 Instructio l nisolone 4 16:24: ns, PO, Herm rupinder MG Oral 00 Take by Tablet mouth as [Medrol]) } directed Pack on label., [Medrol # 1 Pack, Dosepak] 0 Refill(s) Diazepam 5 2018- Yes 5 mg = 1 Mem [facility] MG Oral 2-28 tab, PO, l Tablet 16:24: QID, PRN [place] [Valium] 00 Pain Score 6-10, X 7 day, # 20 tab, 0 Refill(s) { Yes See [facility] (Methylpred 12-23 Instructio l nisolone 4 16:24: ns, PO, Herm rupinder MG Oral 00 Take by Tablet mouth as [Medrol]) } directed Pack on label., [Medrol # 1 Pack, Dosepak] 0 Refill(s) Diazepam 5 2018- Yes 5 mg = 1 Mem [facility] MG Oral 12-23 tab, PO, l Tablet 16:24: QID, PRN [place] [Valium] 00 Pain Score 6-10, X 7 day, # 20 tab, 0 Refill(s) Dexamethaso 2018-0 No 10 mg, Kenan lydia ne 12-23 Route: PO, l 14:33: ONCE, [place] Dosing Weight 65, kg, Priority: STAT, Start date: 12/23/18 8:33:00 TOURIST AGENT, Stop date: 12/23/18 8:33:00 TOURIST AGENT Ketorolac 2019-0 No 30 mg, Memori a 12-23 Route: IM, l 14:33: Drug form: [place] 00 INJ, ONCE, Dosing Weight 65, kg, Priority: STAT, Start date: 12/23/18 8:33:00 TOURIST AGENT, Stop date: 12/23/18 8:33:00 TOURIST AGENT Valium 2018-0 No 5 mg, [facility] 12-23 Route: PO, l 14:33: Drug form: [place] 00 TAB, ONCE, Dosing Weight 65, kg, Priority: STAT, Start date: 12/23/18 8:33:00 TOURIST AGENT, Stop date: 12/23/18 8:33:00 TOURIST AGENT Dexamethaso 2019-0 No 10 mg, Kenan lydia ne 12-23 Route: PO, l 14:33: ONCE, [place] 00 Dosing Weight 65, kg, Priority: STAT, Start date: 12/23/18 8:33:00 TOURIST AGENT, Stop date: 12/23/18 8:33:00 TOURIST AGENT Ketorolac 2019-0 No 30 mg, Memori a 12-23 Route: IM, l 14:33: Drug form: [place] 00 INJ, ONCE, Dosing Weight 65, kg, Priority: STAT, Start date: 12/23/18 8:33:00 TOURIST AGENT, Stop date: 12/23/18 8:33:00 TOURIST AGENT Valium 2019-0 No 5 mg, Mem[facility] - Route: PO, l 14:33: Drug form: [place] 00 TAB, ONCE, Dosing Weight 65, kg, Priority: STAT, Start date: 12/23/18 8:33:00 TOURIST AGENT, Stop date: 12/23/18 8:33:00 TOURIST AGENT Dexamethaso 2019-0 No 10 mg, Kenan lydia ne 12-23 Route: PO, l 14:33: ONCE, Dosing Weight 65, kg, Priority: STAT, Start date: 12/23/18 8:33:00 TOURIST AGENT, Stop date: 12/23/18 8:33:00 TOURIST AGENT Ketorolac 2019-0 No 30 mg, Memori a 2- Route: IM, l 14:33: Drug form: [place] 00 INJ, ONCE, Dosing Weight 65, kg, Priority: STAT, Start date: 12/23/18 8:33:00 TOURIST AGENT, Stop date: 12/23/18 8:33:00 TOURIST AGENT Valium 2019-0 No 5 mg, [facility] 12-23 Route: PO, l 14:33: Drug form: [place] 00 TAB, ONCE, Dosing Weight 65, kg, Priority: STAT, Start date: 12/23/18 8:33:00 TOURIST AGENT, Stop date: 12/23/18 8:33:00 TOURIST AGENT Dexamethaso 2019-0 No 10 mg, Kenan lydia ne 12-23 Route: PO, l 14:33: ONCE, Dosing Weight 65, kg, Priority: STAT, Start date: 12/23/18 8:33:00 TOURIST AGENT, Stop date: 12/23/18 8:33:00 TOURIST AGENT Ketorolac 2019-0 No 30 mg, Memori a 2- Route: IM, l 14:33: Drug form: [place] 00 INJ, ONCE, Dosing Weight 65, kg, Priority: STAT, Start date: 12/23/18 8:33:00 TOURIST AGENT, Stop date: 12/23/18 8:33:00 TOURIST AGENT Valium 2019-0 No 5 mg, [facility] 2- Route: PO, l 14:33: Drug form: [place] 00 TAB, ONCE, Dosing Weight 65, kg, Priority: STAT, Start date: 12/23/18 8:33:00 TOURIST AGENT, Stop date: 12/23/18 8:33:00 TOURIST AGENT Dexamethaso 2019-0 No 10 mg, Kenan lydia ne - Route: PO, l 14:33: ONCE, [place] 00 Dosing Weight 65, kg, Priority: STAT, Start date: 12/23/18 8:33:00 TOURIST AGENT, Stop date: 12/23/18 8:33:00 TOURIST AGENT Ketorolac 2019-0 No 30 mg, Memori a 12-23 Route: IM, l 14:33: Drug form: [place] 00 INJ, ONCE, Dosing Weight 65, kg, Priority: STAT, Start date: 12/23/18 8:33:00 TOURIST AGENT, Stop date: 12/23/18 8:33:00 TOURIST AGENT Valium 2019-0 No 5 mg, [facility] 2 Route: PO, l 14:33: Drug form: [place] 00 TAB, ONCE, Dosing Weight 65, kg, Priority: STAT, Start date: 12/23/18 8:33:00 TOURIST AGENT, Stop date: 12/23/18 8:33:00 TOURIST AGENT Dexamethaso 2019-0 No 10 mg, Kenan lydia ne 12-23 Route: PO, l 14:33: ONCE, [place] 00 Dosing Weight 65, kg, Priority: STAT, Start date: 12/23/18 8:33:00 TOURIST AGENT, Stop date: 12/23/18 8:33:00 TOURIST AGENT Ketorolac 2019-0 No 30 mg, Memori a 12-23 Route: IM, l 14:33: Drug form: [place] 00 INJ, ONCE, Dosing Weight 65, kg, Priority: STAT, Start date: 12/23/18 8:33:00 TOURIST AGENT, Stop date: 12/23/18 8:33:00 TOURIST AGENT Dexamethaso 2019-0 No 10 mg, Kenan lydia ne 12-23 Route: PO, l 14:33: ONCE, [place] 00 Dosing Weight 65, kg, Priority: STAT, Start date: 12/23/18 8:33:00 TOURIST AGENT, Stop date: 12/23/18 8:33:00 TOURIST AGENT Ketorolac 2019-0 No 30 mg, Memori a 12-23 Route: IM, l 14:33: Drug form: [place] 00 INJ, ONCE, Dosing Weight 65, kg, Priority: STAT, Start date: 12/23/18 8:33:00 TOURIST AGENT, Stop date: 12/23/18 8:33:00 TOURIST AGENT Valium 2019-0 No 5 mg, [facility] 2-28 Route: PO, l 14:33: Drug form: [place] 00 TAB, ONCE, Dosing Weight 65, kg, Priority: STAT, Start date: 12/23/18 8:33:00 TOURIST AGENT, Stop date: 12/23/18 8:33:00 TOURIST AGENT Valium 2019-0 No 5 mg, [facility] 2-28 Route: PO, l 14:33: Drug form: [place] 00 TAB, ONCE, Dosing Weight 65, kg, Priority: STAT, Start date: 12/23/18 8:33:00 TOURIST AGENT, Stop date: 12/23/18 8:33:00 TOURIST AGENT Dexamethaso 2019-0 No 10 mg, Kenan lydia ne 2- Route: PO, l 14:33: ONCE, Dosing Weight 65, kg, Priority: STAT, Start date: 12/23/18 8:33:00 TOURIST AGENT, Stop date: 12/23/18 8:33:00 TOURIST AGENT Ketorolac 2019-0 No 30 mg, Memori a 2- Route: IM, l 14:33: Drug form: [place] 00 INJ, ONCE, Dosing Weight 65, kg, Priority: STAT, Start date: 12/23/18 8:33:00 TOURIST AGENT, Stop date: 12/23/18 8:33:00 TOURIST AGENT Valium 2019-0 No 5 mg, [facility] 2- Route: PO, l 14:33: Drug form: [place] 00 TAB, ONCE, Dosing Weight 65, kg, Priority: STAT, Start date: 12/23/18 8:33:00 TOURIST AGENT, Stop date: 12/23/18 8:33:00 TOURIST AGENT Dexamethaso 2019-0 No 10 mg, Kenan lydia ne 2- Route: PO, l 14:33: ONCE, Dosing Weight 65, kg, Priority: STAT, Start date: 12/23/18 8:33:00 TOURIST AGENT, Stop date: 12/23/18 8:33:00 TOURIST AGENT Ketorolac 2019-0 No 30 mg, Memori a 2-28 Route: IM, l 14:33: Drug form: [place] 00 INJ, ONCE, Dosing Weight 65, kg, Priority: STAT, Start date: 12/23/18 8:33:00 TOURIST AGENT, Stop date: 12/23/18 8:33:00 TOURIST AGENT Valium 2019-0 No 5 mg, [facility] 2- Route: PO, l 14:33: Drug form: [place] 00 TAB, ONCE, Dosing Weight 65, kg, Priority: STAT, Start date: 12/23/18 8:33:00 TOURIST AGENT, Stop date: 12/23/18 8:33:00 TOURIST AGENT Dexamethaso 2019-0 No 10 mg, Kenan lydia ne 2- Route: PO, l 14:33: ONCE, [place] 00 Dosing Weight 65, kg, Priority: STAT, Start date: 12/23/18 8:33:00 TOURIST AGENT, Stop date: 12/23/18 8:33:00 TOURIST AGENT Ketorolac 2019-0 No 30 mg, Memori a 2- Route: IM, l 14:33: Drug form: [place] 00 INJ, ONCE, Dosing Weight 65, kg, Priority: STAT, Start date: 12/23/18 8:33:00 TOURIST AGENT, Stop date: 12/23/18 8:33:00 TOURIST AGENT Valium 2019-0 No 5 mg, Mem[facility] 2- Route: PO, l 14:33: Drug form: [place] 00 TAB, ONCE, Dosing Weight 65, kg, Priority: STAT, Start date: 12/23/18 8:33:00 TOURIST AGENT, Stop date: 12/23/18 8:33:00 TOURIST AGENT Dexamethaso 2019-0 No 10 mg, Kenan lydia ne 2- Route: PO, l 14:33: ONCE, Dosing Weight 65, kg, Priority: STAT, Start date: 12/23/18 8:33:00 TOURIST AGENT, Stop date: 12/23/18 8:33:00 TOURIST AGENT Ketorolac 2019-0 No 30 mg, Memori a 2- Route: IM, l 14:33: Drug form: [place] 00 INJ, ONCE, Dosing Weight 65, kg, Priority: STAT, Start date: 12/23/18 8:33:00 TOURIST AGENT, Stop date: 12/23/18 8:33:00 TOURIST AGENT Valium 2019-0 No 5 mg, [facility] 2-28 Route: PO, l 14:33: Drug form: [place] 00 TAB, ONCE, Dosing Weight 65, kg, Priority: STAT, Start date: 12/23/18 8:33:00 TOURIST AGENT, Stop date: 12/23/18 8:33:00 TOURIST AGENT Dexamethaso 2018-0 No 10 mg, Kenan lydia ne 12-23 Route: PO, l 14:33: ONCE, [place] 00 Dosing Weight 65, kg, Priority: STAT, Start date: 12/23/18 8:33:00 TOURIST AGENT, Stop date: 12/23/18 8:33:00 TOURIST AGENT Ketorolac 2018-0 No 30 mg, Memori a 12-23 Route: IM, l 14:33: Drug form: [place] 00 INJ, ONCE, Dosing Weight 65, kg, Priority: STAT, Start date: 12/23/18 8:33:00 TOURIST AGENT, Stop date: 12/23/18 8:33:00 TOURIST AGENT Valium 2018-0 No 5 mg, [facility] 12-23 Route: PO, l 14:33: Drug form: [place] 00 TAB, ONCE, Dosing Weight 65, kg, Priority: STAT, Start date: 12/23/18 8:33:00 TOURIST AGENT, Stop date: 12/23/18 8:33:00 TOURIST AGENT Reglan No Notes: Memoria 8-09 (Same as: l 21:31: Reglan) [place] Reglan No Notes: [facility] 8-09 (Same as: l 21:31: Reglan) [place] Reglan No Notes: [facility] 8-09 (Same as: l 21:31: Reglan) [place] Reglan No Notes: [facility] 8-09 (Same as: l 21:31: Reglan) [place] Reglan 0 No Notes: [facility]oria 8-09 (Same as: l 21:31: Reglan) [place] Reglan 0 No Notes: [facility]oria 8-09 (Same as: l 21:31: Reglan) [place] Reglan 0 No Notes: [facility] 8-09 (Same as: l 21:31: Reglan) [place] Reglan 0 No Notes: [facility]oria 8-09 (Same as: l 21:31: Reglan) [place] Reglan 0 No Notes: [facility]oria 8-09 (Same as: l 21:31: Reglan) [place] Reglan 0 No Notes: [facility]oria 8-09 (Same as: l 21:31: Reglan) [place] Reglan 2017-0 No Notes: [facility] 06-03 (Same as: l 21:31: Reglan) [place] Reglan No Notes: [facility]oria 06-03 (Same as: l 21:31: Reglan) [place] Diphenhydra 2017-0 No Notes: Kenan lydia mine 06-03 (Same as: l 21:30: Benadryl) [place] Ketorolac 2017-0 No 4 days Memor ia 8- l 21:30: MEDICATION [place] 00 WASTE Product Size: 30 mg Product Wasted: ___ mg Diphenhydra 2017-0 No Notes: Kenan lydia mine 06-03 (Same as: l 21:30: Benadryl) Gerardo Ketorolac 0 No 4 days Memor ia 8 l 21:30: MEDICATION [place] 00 WASTE Product Size: 30 mg Product Wasted: ___ mg Diphenhydra 2017-0 No Notes: Kenan lydia mine 06-03 (Same as: l 21:30: Benadryl) [place] Ketorolac 0 No 4 days Memor ia 8- l 21:30: MEDICATION [place] 00 WASTE Product Size: 30 mg Product Wasted: ___ mg Diphenhydra 2017-0 No Notes: Kenan lydia mine 06-03 (Same as: l 21:30: Benadryl) [place] Ketorolac 0 No 4 days Memor ia 8-09 l 21:30: MEDICATION [place] 00 WASTE Product Size: 30 mg Product Wasted: ___ mg Diphenhydra 2017-0 No Notes: Kenan lydia mine 06-03 (Same as: l 21:30: Benadryl) [place] Ketorolac 2017-0 No 4 days Memor ia 8- l 21:30: MEDICATION [place] 00 WASTE Product Size: 30 mg Product Wasted: ___ mg Diphenhydra 2017-0 No Notes: Kenan lydia mine 06-03 (Same as: l 21:30: Benadryl) [place] Ketorolac 2017-0 No 4 days Memor ia 06-03 l 21:30: MEDICATION [place] 00 WASTE Product Size: 30 mg Product Wasted: ___ mg Diphenhydra 2017-0 No Notes: Kenan lydia mine 06-03 (Same as: l 21:30: Benadryl) Gerardo Ketorolac 2017-0 No 4 days Memor ia 06-03 l 21:30: MEDICATION [place] 00 WASTE Product Size: 30 mg Product Wasted: ___ mg Diphenhydra 2017-0 No Notes: Kenan lydia mine 06-03 (Same as: l 21:30: Benadryl) [place] Ketorolac 0 No 4 days Memor ia 06-03 l 21:30: MEDICATION [place] 00 WASTE Product Size: 30 mg Product Wasted: ___ mg Diphenhydra 2017-0 No Notes: Kenan lydia mine 06-03 (Same as: l 21:30: Benadryl) [place] Ketorolac 0 No 4 days Memor ia 06-03 l 21:30: MEDICATION [place] 00 WASTE Product Size: 30 mg Product Wasted: ___ mg Diphenhydra 2017-0 No Notes: Kenan lydia mine 06-03 (Same as: l 21:30: Benadryl) [place]ardo Ketorolac 0 No 4 days Memor ia 06-03 l 21:30: MEDICATION [place] 00 WASTE Product Size: 30 mg Product Wasted: ___ mg Diphenhydra 2017-0 No Notes: Kenan lydia mine 06-03 (Same as: l 21:30: Benadryl) [place] Ketorolac 0 No 4 days Memor ia 06-03 l 21:30: MEDICATION [place] 00 WASTE Product Size: 30 mg Product Wasted: ___ mg Diphenhydra 2017-0 No Notes: Kenan lydia mine 06-03 (Same as: l 21:30: Benadryl) Gerardo Ketorolac 0 No 4 days Memor ia 8 l 21:30: MEDICATION [place] 00 WASTE Product Size: 30 mg Product Wasted: ___ mg normal 2018-0 No 1,000 mL, Memori a saline 0.9% 8 Rate: l IV 1,000 mL 15:13: 1,000 Chayo nn 00 ml/hr, Infuse over: 1 hr, Route: IV, Dosing Weight 62.727 kg, Total Volume: 1,000, Priority: STAT, Start date: 06/03/18 10:13:00 CDT, Duration: 1 doses or times, Stop date: 06/03/18 11:12:00 CDT, 1.74, m2 normal 2018-0 No 1,000 mL, Memori a saline 0.9% 06-03 Rate: l IV 1,000 mL 15:13: 1,000 Chayo nn 00 ml/hr, Infuse over: 1 hr, Route: IV, Dosing Weight 62.727 kg, Total Volume: 1,000, Priority: STAT, Start date: 06/03/18 10:13:00 CDT, Duration: 1 doses or times, Stop date: 06/03/18 11:12:00 CDT, 1.74, m2 normal 2018-0 No 1,000 mL, Memori a saline 0.9% 06-03 Rate: l IV 1,000 mL 15:13: 1,000 Chayo nn 00 ml/hr, Infuse over: 1 hr, Route: IV, Dosing Weight 62.727 kg, Total Volume: 1,000, Priority: STAT, Start date: 06/03/18 10:13:00 CDT, Duration: 1 doses or times, Stop date: 06/03/18 11:12:00 CDT, 1.74, m2 normal 2018-0 No 1,000 mL, Memori a saline 0.9% 06-03 Rate: l IV 1,000 mL 15:13: 1,000 Chayo nn 00 ml/hr, Infuse over: 1 hr, Route: IV, Dosing Weight 62.727 kg, Total Volume: 1,000, Priority: STAT, Start date: 06/03/18 10:13:00 CDT, Duration: 1 doses or times, Stop date: 06/03/18 11:12:00 CDT, 1.74, m2 normal 2018-0 No 1,000 mL, Memori a saline 0.9% 8-09 Rate: l IV 1,000 mL 15:13: 1,000 Chayo nn 00 ml/hr, Infuse over: 1 hr, Route: IV, Dosing Weight 62.727 kg, Total Volume: 1,000, Priority: STAT, Start date: 06/03/18 10:13:00 CDT, Duration: 1 doses or times, Stop date: 06/03/18 11:12:00 CDT, 1.74, m2 normal 2018-0 No 1,000 mL, Memori a saline 0.9% 06-03 Rate: l IV 1,000 mL 15:13: 1,000 Chayo nn 00 ml/hr, Infuse over: 1 hr, Route: IV, Dosing Weight 62.727 kg, Total Volume: 1,000, Priority: STAT, Start date: 06/03/18 10:13:00 CDT, Duration: 1 doses or times, Stop date: 06/03/18 11:12:00 CDT, 1.74, m2 normal 2018-0 No 1,000 mL, Memori a saline 0.9% 06-03 Rate: l IV 1,000 mL 15:13: 1,000 Chayo nn 00 ml/hr, Infuse over: 1 hr, Route: IV, Dosing Weight 62.727 kg, Total Volume: 1,000, Priority: STAT, Start date: 06/03/18 10:13:00 CDT, Duration: 1 doses or times, Stop date: 06/03/18 11:12:00 CDT, 1.74, m2 normal 2018-0 No 1,000 mL, Memori a saline 0.9% 06-03 Rate: l IV 1,000 mL 15:13: 1,000 Chayo nn 00 ml/hr, Infuse over: 1 hr, Route: IV, Dosing Weight 62.727 kg, Total Volume: 1,000, Priority: STAT, Start date: 06/03/18 10:13:00 CDT, Duration: 1 doses or times, Stop date: 06/03/18 11:12:00 CDT, 1.74, m2 normal 2018-0 No 1,000 mL, Memori a saline 0.9% 06-03 Rate: l IV 1,000 mL 15:13: 1,000 Chayo nn 00 ml/hr, Infuse over: 1 hr, Route: IV, Dosing Weight 62.727 kg, Total Volume: 1,000, Priority: STAT, Start date: 06/03/18 10:13:00 CDT, Duration: 1 doses or times, Stop date: 06/03/18 11:12:00 CDT, 1.74, m2 normal 2018-0 No 1,000 mL, Memori a saline 0.9% 06-03 Rate: l IV 1,000 mL 15:13: 1,000 Chayo nn 00 ml/hr, Infuse over: 1 hr, Route: IV, Dosing Weight 62.727 kg, Total Volume: 1,000, Priority: STAT, Start date: 06/03/18 10:13:00 CDT, Duration: 1 doses or times, Stop date: 06/03/18 11:12:00 CDT, 1.74, m2 normal 2018-0 No 1,000 mL, Memori a saline 0.9% 06-03 Rate: l IV 1,000 mL 15:13: 1,000 Chayo nn 00 ml/hr, Infuse over: 1 hr, Route: IV, Dosing Weight 62.727 kg, Total Volume: 1,000, Priority: STAT, Start date: 06/03/18 10:13:00 CDT, Duration: 1 doses or times, Stop date: 06/03/18 11:12:00 CDT, 1.74, m2 normal 2018-0 No 1,000 mL, Memori a saline 0.9% [...] mg = 1 Me moria oral tablet -02 tab, PO, l 17:44: QID, X 7 Gerardo 00 day, # 28 tab, 0 Refill(s) Reglan 5 mg 2016-10 Yes 5 mg = 1 Me moria oral tablet 1-02 tab, PO, l 17:44: QID, X 7 [place] 00 day, # 28 tab, 0 Refill(s) Reglan 5 mg 2016-10 Yes 5 mg = 1 Me moria oral tablet 10-27 tab, PO, l 17:44: QID, X 7 [place] 00 day, # 28 tab, 0 Refill(s) Reglan 5 mg 2016-10 Yes 5 mg = 1 Me moria oral tablet 10-27 tab, PO, l 17:44: QID, X 7 [place] 00 day, # 28 tab, 0 Refill(s) Reglan 5 mg 2016-10 Yes 5 mg = 1 Me moria oral tablet 10-27 tab, PO, l 17:44: QID, X 7 [place] 00 day, # 28 tab, 0 Refill(s) Reglan 5 mg 2016-10 Yes 5 mg = 1 Me moria oral tablet 10-27 tab, PO, l 17:44: QID, X 7 [place] 00 day, # 28 tab, 0 Refill(s) Reglan 5 mg 2016-10 Yes 5 mg = 1 Me moria oral tablet 10-27 tab, PO, l 17:44: QID, X 7 [place] 00 day, # 28 tab, 0 Refill(s) Reglan 5 mg 2016-10 Yes 5 mg = 1 Me moria oral tablet 10-27 tab, PO, l 17:44: QID, X 7 [place] 00 day, # 28 tab, 0 Refill(s) Reglan 5 mg 2016-10 Yes 5 mg = 1 Me moria oral tablet 10-27 tab, PO, l 17:44: QID, X 7 [place] 00 day, # 28 tab, 0 Refill(s) Reglan 5 mg 2016-10 Yes 5 mg = 1 Me moria oral tablet 10-27 tab, PO, l 17:44: QID, X 7 [place] 00 day, # 28 tab, 0 Refill(s) Reglan 5 mg 2016-10 Yes 5 mg = 1 Me moria oral tablet 10-27 tab, PO, l 17:44: QID, X 7 [place] 00 day, # 28 tab, 0 Refill(s) Reglan 5 mg 2016-10 Yes 5 mg = 1 Me moria oral tablet 10-27 tab, PO, l 17:44: QID, X 7 [place] 00 day, # 28 tab, 0 Refill(s) Sodium 2016-10 No 1,000 mL, Memori a Chloride 1-02 2,000 l 0.9% 14:45: ml/hr, [place] (Bolus) IV 00 Infuse Over: 30 minutes, Route: IV, 1,000, Drug form: INJ, ONCE, Priority: STAT, Dosing Weight 62.727 kg, Start date: 08/27/17 9:45:00 CDT, Duration: 1 doses or times, Stop date: 08/27/17 9:45:00 CDT Saline 2016-10 No Notes: Memoria Flush 0.9% 1-02 (Same as: l 14:45: BD Gerardo 00 Posiflush) Sodium 2016-10 No 1,000 mL, Memori a Chloride 1-02 2,000 l 0.9% 14:45: ml/hr, [place] (Bolus) IV 00 Infuse Over: 30 minutes, Route: IV, 1,000, Drug form: INJ, ONCE, Priority: STAT, Dosing Weight 62.727 kg, Start date: 08/27/17 9:45:00 CDT, Duration: 1 doses or times, Stop date: 08/27/17 9:45:00 CDT Saline 2016-10 No Notes: Memoria Flush 0.9% 1-02 (Same as: l 14:45: BD [place] 00 Posiflush) Sodium 2016-10 No 1,000 mL, Memori a Chloride 1-02 2,000 l 0.9% 14:45: ml/hr, [place] (Bolus) IV 00 Infuse Over: 30 minutes, Route: IV, 1,000, Drug form: INJ, ONCE, Priority: STAT, Dosing Weight 62.727 kg, Start date: 08/27/17 9:45:00 CDT, Duration: 1 doses or times, Stop date: 08/27/17 9:45:00 CDT Saline 2016-10 No Notes: Memoria Flush 0.9% 1-02 (Same as: l 14:45: BD [place] 00 Posiflush) Sodium 2016-10 No 1,000 mL, Memori a Chloride 1-02 2,000 l 0.9% 14:45: ml/hr, [place] (Bolus) IV 00 Infuse Over: 30 minutes, Route: IV, 1,000, Drug form: INJ, ONCE, Priority: STAT, Dosing Weight 62.727 kg, Start date: 08/27/17 9:45:00 CDT, Duration: 1 doses or times, Stop date: 08/27/17 9:45:00 CDT Saline 2016-10 No Notes: Memoria Flush 0.9% 1-02 (Same as: l 14:45: BD [place] 00 Posiflush) Sodium 2016-10 No 1,000 mL, Memori a Chloride 1-02 2,000 l 0.9% 14:45: ml/hr, [place] (Bolus) IV 00 Infuse Over: 30 minutes, Route: IV, 1,000, Drug form: INJ, ONCE, Priority: STAT, Dosing Weight 62.727 kg, Start date: 08/27/17 9:45:00 CDT, Duration: 1 doses or times, Stop date: 08/27/17 9:45:00 CDT Saline 2016-10 No Notes: Memoria Flush 0.9% 1-02 (Same as: l 14:45: BD [place] 00 Posiflush) Sodium 2016-10 No 1,000 mL, Memori a Chloride 1-02 2,000 l 0.9% 14:45: ml/hr, [place] (Bolus) IV 00 Infuse Over: 30 minutes, Route: IV, 1,000, Drug form: INJ, ONCE, Priority: STAT, Dosing Weight 62.727 kg, Start date: 08/27/17 9:45:00 CDT, Duration: 1 doses or times, Stop date: 08/27/17 9:45:00 CDT Saline 2016-10 No Notes: Memoria Flush 0.9% 1-02 (Same as: l 14:45: BD [place] 00 Posiflush) Sodium 2016-10 No 1,000 mL, Memori a Chloride 1-02 2,000 l 0.9% 14:45: ml/hr, [place] (Bolus) IV 00 Infuse Over: 30 minutes, Route: IV, 1,000, Drug form: INJ, ONCE, Priority: STAT, Dosing Weight 62.727 kg, Start date: 08/27/17 9:45:00 CDT, Duration: 1 doses or times, Stop date: 08/27/17 9:45:00 CDT Saline 2016-10 No Notes: Memoria Flush 0.9% 1-02 (Same as: l 14:45: BD [place] 00 Posiflush) Sodium 2016-10 No 1,000 mL, Memori a Chloride 1-02 2,000 l 0.9% 14:45: ml/hr, Gerardo (Bolus) IV 00 Infuse Over: 30 minutes, Route: IV, 1,000, Drug form: INJ, ONCE, Priority: STAT, Dosing Weight 62.727 kg, Start date: 08/27/17 9:45:00 CDT, Duration: 1 doses or times, Stop date: 08/27/17 9:45:00 CDT Saline 2016-10 No Notes: Memoria Flush 0.9% 1-02 (Same as: l 14:45: BD Gerardo 00 Posiflush) Sodium 2016-10 No 1,000 mL, Memori a Chloride 1-02 2,000 l 0.9% 14:45: ml/hr, [place] (Bolus) IV 00 Infuse Over: 30 minutes, Route: IV, 1,000, Drug form: INJ, ONCE, Priority: STAT, Dosing Weight 62.727 kg, Start date: 08/27/17 9:45:00 CDT, Duration: 1 doses or times, Stop date: 08/27/17 9:45:00 CDT Saline 2016-10 No Notes: Memoria Flush 0.9% 1-02 (Same as: l 14:45: BD Gerardo 00 Posiflush) Sodium 2016-10 No 1,000 mL, Memori a Chloride 1-02 2,000 l 0.9% 14:45: ml/hr, [place] (Bolus) IV 00 Infuse Over: 30 minutes, Route: IV, 1,000, Drug form: INJ, ONCE, Priority: STAT, Dosing Weight 62.727 kg, Start date: 08/27/17 9:45:00 CDT, Duration: 1 doses or times, Stop date: 08/27/17 9:45:00 CDT Saline 2016-10 No Notes: Memoria Flush 0.9% 1-02 (Same as: l 14:45: BD [place] 00 Posiflush) Sodium 2016-10 No 1,000 mL, Memori a Chloride 1-02 2,000 l 0.9% 14:45: ml/hr, Gerardo (Bolus) IV 00 Infuse Over: 30 minutes, Route: IV, 1,000, Drug form: INJ, ONCE, Priority: STAT, Dosing Weight 62.727 kg, Start date: 08/27/17 9:45:00 CDT, Duration: 1 doses or times, Stop date: 08/27/17 9:45:00 CDT Saline 2016-10 No Notes: Memoria Flush 0.9% 1-02 (Same as: l 14:45: BD [place] 00 Posiflush) Sodium 2016-10 No 1,000 mL, Memori a Chloride 1-02 2,000 l 0.9% 14:45: ml/hr, Gerardo (Bolus) IV 00 Infuse Over: 30 minutes, Route: IV, 1,000, Drug form: INJ, ONCE, Priority: STAT, Dosing Weight 62.727 kg, Start date: 08/27/17 9:45:00 CDT, Duration: 1 doses or times, Stop date: 08/27/17 9:45:00 CDT Saline 2016-10 No Notes: Memoria Flush 0.9% 1-02 (Same as: l 14:45: BD [place] 00 Posiflush) Tylenol 2016-10 No Notes: Do Memor ia 1-02 not exceed l 14:43: 4 gm/day. [place] 00 (Same as: Tylenol) Tylenol 2016-10 No Notes: Do Memor ia 1-02 not exceed l 14:43: 4 gm/day. Gerardo 00 (Same as: Tylenol) Tylenol 2016-10 No Notes: Do Memor ia 1-02 not exceed l 14:43: 4 gm/day. Gerardo (Same as: Tylenol) Tylenol 2016-10 No Notes: Do Memor ia 1-02 not exceed l 14:43: 4 gm/day. Gerardo 00 (Same as: Tylenol) Tylenol 2016-10 No Notes: Do Memor ia 1-02 not exceed l 14:43: 4 gm/day. Gerardo 00 (Same as: Tylenol) Tylenol 2016-10 No Notes: Do Memor ia 1-02 not exceed l 14:43: 4 gm/day. [place] (Same as: Tylenol) Tylenol 2016-10 No Notes: Do Memor ia - not exceed l 14:43: 4 gm/day. (Same as: Tylenol) Tylenol 2016-10 No Notes: Do Memor ia 10-27 not exceed l 14:43: 4 gm/day. (Same as: Tylenol) Tylenol 2016-10 No Notes: Do Memor ia - not exceed l 14:43: 4 gm/day. (Same as: Tylenol) Tylenol 2016-10 No Notes: Do Memor ia - not exceed l 14:43: 4 gm/day. (Same as: Tylenol) Tylenol 2016-10 No Notes: Do Memor ia 10-27 not exceed l 14:43: 4 gm/day. (Same as: Tylenol) Tylenol 2016-10 No Notes: Do Memor ia 10-27 not exceed l 14:43: 4 gm/day. (Same as: Tylenol) Ondansetron Yes Special [facility]ria 4 MG 7-08 Instructio l Disintegrat 22:26: ns: Rakesh n ing Tablet 00 Dissolve [Zofran] tab under tongue Ondansetron Yes [facility] 4 MG 7-08 Instructio l Disintegrat 22:26: ns: Rakesh n ing Tablet 00 Dissolve [Zofran] tab under tongue Ondansetron Yes [facility] 4 MG 7-08 Instructio l Disintegrat 22:26: ns: Rakesh n ing Tablet 00 Dissolve [Zofran] tab under tongue Ondansetron Yes [facility] 4 MG 7-08 Instructio l Disintegrat 22:26: ns: Rakesh n ing Tablet 00 Dissolve [Zofran] tab under tongue Ondansetron Yes [facility] 4 MG 7-08 Instructio l Disintegrat 22:26: ns: Rakesh n ing Tablet 00 Dissolve [Zofran] tab under tongue Ondansetron Yes [facility] 4 MG 7-08 Instructio l Disintegrat 22:26: ns: Rakesh n ing Tablet 00 Dissolve [Zofran] tab under tongue Ondansetron Yes [facility] 4 MG 7-08 Instructio l Disintegrat 22:26: ns: Rakesh n ing Tablet 00 Dissolve [Zofran] tab under tongue Ondansetron Yes [facility] 4 MG 7-08 Instructio l Disintegrat 22:26: ns: Rakesh n ing Tablet 00 Dissolve [Zofran] tab under tongue Ondansetron Yes [facility] 4 MG 7-08 Instructio l Disintegrat 22:26: ns: Rakesh n ing Tablet 00 Dissolve [Zofran] tab under tongue Ondansetron Yes [facility] 4 MG 7-08 Instructio l Disintegrat 22:26: ns: Rakesh n ing Tablet 00 Dissolve [Zofran] tab under tongue Ondansetron Yes [facility] 4 MG 7-08 Instructio l Disintegrat 22:26: ns: Rakesh n ing Tablet 00 Dissolve [Zofran] tab under tongue Ondansetron Yes [facility] 4 MG 7-08 Instructio l Disintegrat 22:26: ns: Rakesh n ing Tablet 00 Dissolve [Zofran] tab under tongue meclizine Yes 25 mg = 1 Mem oria 25 mg oral 7-08 tab, PO, l tablet 22:24: TID, PRN Gerardo 00 Other-See Comments, X 4 day, # 12 tab, 0 Refill(s) meclizine Yes 25 mg = 1 Mem oria 25 mg oral 7-08 tab, PO, l tablet 22:24: TID, PRN [place] 00 Other-See Comments, X 4 day, # 12 tab, 0 Refill(s) meclizine Yes 25 mg = 1 Mem oria 25 mg oral 7-08 tab, PO, l tablet 22:24: TID, PRN Gerardo 00 Other-See Comments, X 4 day, # 12 tab, 0 Refill(s) meclizine Yes 25 mg = 1 Mem oria 25 mg oral 7-08 tab, PO, l tablet 22:24: TID, PRN Gerardo 00 Other-See Comments, X 4 day, # 12 tab, 0 Refill(s) meclizine Yes 25 mg = 1 Mem oria 25 mg oral 7-08 tab, PO, l tablet 22:24: TID, PRN Gerardo 00 Other-See Comments, X 4 day, # 12 tab, 0 Refill(s) meclizine Yes 25 mg = 1 Mem oria 25 mg oral 7-08 tab, PO, l tablet 22:24: TID, PRN [place] 00 Other-See Comments, X 4 day, # 12 tab, 0 Refill(s) meclizine Yes 25 mg = 1 Mem oria 25 mg oral 7-08 tab, PO, l tablet 22:24: TID, PRN [place] 00 Other-See Comments, X 4 day, # 12 tab, 0 Refill(s) meclizine Yes 25 mg = 1 Mem oria 25 mg oral 7-08 tab, PO, l tablet 22:24: TID, PRN [place] 00 Other-See Comments, X 4 day, # 12 tab, 0 Refill(s) meclizine Yes 25 mg = 1 Mem oria 25 mg oral 7-08 tab, PO, l tablet 22:24: TID, PRN [place] 00 Other-See Comments, X 4 day, # 12 tab, 0 Refill(s) meclizine Yes 25 mg = 1 Mem oria 25 mg oral 7-08 tab, PO, l tablet 22:24: TID, PRN [place] 00 Other-See Comments, X 4 day, # 12 tab, 0 Refill(s) meclizine Yes 25 mg = 1 Mem oria 25 mg oral 7-08 tab, PO, l tablet 22:24: TID, PRN Gerardo 00 Other-See Comments, X 4 day, # 12 tab, 0 Refill(s) meclizine Yes 25 mg = 1 Mem oria 25 mg oral 7-08 tab, PO, l tablet 22:24: TID, PRN Gerardo 00 Other-See Comments, X 4 day, # 12 tab, 0 Refill(s) Meclizine No 50 mg, Memori a 08 Route: PO, l 20:54: Drug form: [place] 00 TAB, ONCE, Dosing Weight 63.636, kg, Priority: STAT, Start date: 05/02/15 15:54:00, Stop date: 05/02/15 15:54:00 Meclizine 2015-0 No 50 mg, Memori a 7-08 Route: PO, l 20:54: Drug form: [place] 00 TAB, ONCE, Dosing Weight 63.636, kg, Priority: STAT, Start date: 05/02/15 15:54:00, Stop date: 05/02/15 15:54:00 Meclizine 2015-0 No 50 mg, Memori a 7- Route: PO, l 20:54: Drug form: Gerardo 00 TAB, ONCE, Dosing Weight 63.636, kg, Priority: STAT, Start date: 05/02/15 15:54:00, Stop date: 05/02/15 15:54:00 Meclizine 2015-0 No 50 mg, Memori a 7- Route: PO, l 20:54: Drug form: [place] 00 TAB, ONCE, Dosing Weight 63.636, kg, Priority: STAT, Start date: 05/02/15 15:54:00, Stop date: 05/02/15 15:54:00 Meclizine 2015-0 No 50 mg, Memori a 7- Route: PO, l 20:54: Drug form: [place] 00 TAB, ONCE, Dosing Weight 63.636, kg, Priority: STAT, Start date: 05/02/15 15:54:00, Stop date: 05/02/15 15:54:00 Meclizine 2015-0 No 50 mg, Memori a 7- Route: PO, l 20:54: Drug form: Gerardo 00 TAB, ONCE, Dosing Weight 63.636, kg, Priority: STAT, Start date: 05/02/15 15:54:00, Stop date: 05/02/15 15:54:00 Meclizine 2015-0 No 50 mg, Memori a 7- Route: PO, l 20:54: Drug form: [place] 00 TAB, ONCE, Dosing Weight 63.636, kg, Priority: STAT, Start date: 05/02/15 15:54:00, Stop date: 05/02/15 15:54:00 Meclizine 2015-0 No 50 mg, Memori a 7-08 Route: PO, l 20:54: Drug form: [place] 00 TAB, ONCE, Dosing Weight 63.636, kg, Priority: STAT, Start date: 05/02/15 15:54:00, Stop date: 05/02/15 15:54:00 Meclizine 2015-0 No 50 mg, Memori a 05-02 Route: PO, l 20:54: Drug form: Gerardo 00 TAB, ONCE, Dosing Weight 63.636, kg, Priority: STAT, Start date: 05/02/15 15:54:00, Stop date: 05/02/15 15:54:00 Meclizine 2015-0 No 50 mg, Memori a 7 Route: PO, l 20:54: Drug form: [place] 00 TAB, ONCE, Dosing Weight 63.636, kg, Priority: STAT, Start date: 05/02/15 15:54:00, Stop date: 05/02/15 15:54:00 Meclizine 2015-0 No 50 mg, Memori a 05-02 Route: PO, l 20:54: Drug form: [place] 00 TAB, ONCE, Dosing Weight 63.636, kg, Priority: STAT, Start date: 05/02/15 15:54:00, Stop date: 05/02/15 15:54:00 Meclizine 2015-0 No 50 mg, Memori a 05-02 Route: PO, l 20:54: Drug form: [place] 00 TAB, ONCE, Dosing Weight 63.636, kg, Priority: STAT, Start date: 05/02/15 15:54:00, Stop date: 05/02/15 15:54:00 Vital Signs Vital Name Observation Time Observation Value Comments Source HEIGHT 2023-01-30 07:30:00 172.7 cm WEIGHT 2023-01-30 07:30:00 68.357 kg HEIGHT 2023-01-30 07:30:00 172.7 cm WEIGHT 2023-01-30 07:30:00 68.357 kg HEIGHT 2023-01-30 07:30:00 172.7 cm WEIGHT 2023-01-30 07:30:00 68.357 kg WEIGHT 2023-01-23 17:11:00 67.8 kg WEIGHT 2023-01-23 17:11:00 67.8 kg WEIGHT 2023-01-23 17:11:00 67.8 kg Systolic blood 2023-01-21 15:47:00 122 mm[Hg] [facility] Medicine Diastolic blood 2023-01-21 15:47:00 73 mm[Hg] [facility] Medicine Heart rate 2023-01-21 15:47:00 100 /min [facility] Body temperature 2023-01-21 15:47:00 36.94 [facility] Respiratory rate 2023-01-21 15:47:00 16 /min [facility] Body height 2023-01-21 15:47:00 172.7 cm [facility] Body weight 2023-01-21 15:47:00 69.31 kg [facility] BMI 2023-01-21 15:47:00 23.23 kg/m2 [facility] Systolic blood 2023-01-30 13:15:00 117 mm[Hg] [facility] Diastolic blood 2023-01-30 13:15:00 78 mm[Hg] [facility] Heart rate 2023-01-30 13:15:00 88 /min [facility] Respiratory rate 2023-01-30 13:15:00 18 /min [facility] Oxygen saturation in 2023-01-30 13:15:00 98 /min [facility] Arterial blood by Medical Ce [facility]ter Pulse oximetry Body temperature 2023-01-30 12:45:00 36.89 [facility] Body height 2023-01-30 07:30:00 172.7 cm [facility] Body weight 2023-01-30 07:30:00 68.357 kg [facility] BMI 2023-01-30 07:30:00 22.91 kg/m2 [facility] Respiratory rate 2023-01-09 12:30:00 17 /min [facility] Oxygen saturation in 2023-01-09 12:30:00 99 /min [facility] Arterial blood by Medical [facility] Pulse oximetry Systolic blood 2023-01-09 11:03:00 123 mm[Hg] [facility] Diastolic blood 2023-01-09 11:03:00 74 mm[Hg] [facility] Heart rate 2023-01-09 11:03:00 94 /min [facility] Body temperature 2023-01-09 11:03:00 37 [facility] Body height 2023-01-06 20:33:00 172.7 cm [facility] Body weight 2023-01-06 20:33:00 68.04 kg [facility] BMI 2023-01-06 20:33:00 22.81 kg/m2 [facility] Systolic (mm Hg) 2018-12-23 16:40:00 Kenan rial [place] Diastolic (mm Hg) 2018-12-23 16:40:00 Mem orial [place] Heart Rate 2018-12-23 16:40:00 [facility] [place] Respitory Rate 2018-12-23 16:40:00 Memori al [place] Weight 2018-12-23 14:22:00 [facility] [place] Height 2018-12-23 14:22:00 172.72 cm [facility] Systolic (mm Hg) 2018-12-23 14:22:00 Kenan rial [place] Diastolic (mm Hg) 2018-12-23 14:22:00 Mem orial [place] Heart Rate 2018-12-23 14:22:00 [facility] [place] Respitory Rate 2018-12-23 14:22:00 Memori al Gerardo Temperature Oral (F) 2018-12-23 14:22:00 97.7 F [facility] BMI Calculated 2018-12-23 14:22:00 Memori al [place] Temperature Oral (F) 2018-06-03 23:00:00 98.2 F [facility] [place] Heart Rate 2018-06-03 23:00:00 [facility] [place] Systolic (mm Hg) 2018-06-03 23:00:00 Kenan rial Gerardo Diastolic (mm Hg) 2018-06-03 23:00:00 Mem orial [place] Respitory Rate 2018-06-03 23:00:00 Memori al [place] Systolic (mm Hg) 2018-06-03 21:25:00 Kenan rial Gerardo Diastolic (mm Hg) 2018-06-03 21:25:00 Mem orial [place] Respitory Rate 2018-06-03 21:25:00 Memori al [facility] Heart Rate 2018-06-03 21:25:00 [facility] Heart Rate 2018-06-03 20:07:00 [facility] [place] Respitory Rate 2018-06-03 20:07:00 Memori al [place] Systolic (mm Hg) 2018-06-03 20:07:00 Kenan rial [place] Diastolic (mm Hg) 2018-06-03 20:07:00 Mem orial [place] Weight 2018-06-03 15:09:00 [facility] [place] Temperature Oral (F) 2018-06-03 15:09:00 98.1 F [facility] [place] Systolic (mm Hg) 2017-08-27 18:00:00 Kenan rial [place] Diastolic (mm Hg) 2017-08-27 18:00:00 Mem orial Gerardo Temperature Oral (F) 2017-08-27 18:00:00 98.2 F [facility] Heart Rate 2017-08-27 18:00:00 [facility] Respitory Rate 2017-08-27 18:00:00 Memori al [place] Height 2017-08-27 14:42:00 172.72 cm [facility] [place] BMI Calculated 2017-08-27 14:42:00 Memori al [place] Weight 2017-08-27 14:42:00 [facility] Systolic (mm Hg) 2017-08-27 14:42:00 Kenan rial [place] Diastolic (mm Hg) 2017-08-27 14:42:00 Mem orial [place] Respitory Rate 2017-08-27 14:42:00 Memori al [place] Heart Rate 2017-08-27 14:42:00 [facility] Temperature Oral (F) 2017-08-27 14:42:00 98.1 F [facility] [place] Systolic (mm Hg) 2015-05-02 22:36:00 Kenan rial [place] Diastolic (mm Hg) 2015-05-02 22:36:00 Mem orial [place] Heart Rate 2015-05-02 22:36:00 [facility] Temperature Oral (F) 2015-05-02 22:36:00 98.9 F [facility] [place] Respitory Rate 2015-05-02 22:36:00 Memori al [place] Weight 2015-05-02 20:37:00 [facility] [place] BMI Calculated 2015-05-02 20:37:00 Memori al [place] Height 2015-05-02 20:37:00 [facility] Oral (F) 2015-05-02 20:37:00 97.9 F Mario Alberto Carrillo Systolic (mm Hg) 2015-05-02 20:37:00 Kenan Carrillo Diastolic (mm Hg) 2015-05-02 20:37:00 Zakiya Carrillo Respitory Rate 2015-05-02 20:37:00 Maryam mackenzie [place] Heart Rate 2015-05-02 20:37:00 [facility] Procedures Procedure Date / Time Performing Clinician Source Performed IR PORT-A-CATH PLACEMENT 2023-01-30 12:45:00 Nicole Castellanos [facility] CBC W/PLT COUNT & AUTO 2023-01-30 07:58:00 Kathi Ballard [facility] PROTHROMBIN TIME/INR 2023-01-30 07:58:00 Kathi Ballard [facility] CBC W/PLT COUNT & AUTO 2023-01-30 07:58:[address] [facility] (CELLAVISION MANUAL DIFF) 2023-01-30 07:58:00 Kathi Ballard [facility] COMPREHENSIVE METABOLIC 2023-01-30 05:28:[address] [facility] MAGNESIUM 2023-01-30 05:28:00 Tamir, Cindy [facility] PH, URINE 2023-01-30 05:17:00 Tra Morrissey [facility] CBC W/PLT COUNT & AUTO 2023-01-30 04:29:00 Cindy Emmanuel [facility] CBC W/PLT COUNT & AUTO 2023-01-30 04:29:00 Tamir Cindy [facility] (CELLAVISION MANUAL DIFF) 2023-01-30 04:29:00 Cindy Emmanuel I [facility] METHOTREXATE LEVEL 2023-01-29 17:19:00 Keara Contreras [facility] Sravanti [facility] POTASSIUM 2023-01-29 17:19:00 Tamir [facility] PH, URINE 2023-01-29 06:51:00 [facility] W[facility] & AUTO 2023-01-29 04:58:00 Tamir [facility] COMPREHENSIVE METABOLIC 2023-01-29 04:58:00 Tamir [facility] MAGNESIUM 2023-01-29 04:58:00 Tamir [facility] CBC W/PLT COUNT & AUTO 2023-01-29 04:58:00 Tamir [facility] METHOTREXATE LEVEL 2023-01-28 17:57:00 Ben [facility] PH, URINE 2023-01-28 07:47:00 Yuni, [facility] COMPREHENSIVE METABOLIC 2023-01-28 05:32:00 [facility] & AUTO 2023-01-28 05:32:00 Yuni, Heidijodi Chelsey [place] [facility] URIC ACID 2023-01-28 05:32:00 Yuni, [facility] LACTATE DEHYDROGENASE 2023-01-28 05:32:00 Yuni, Heidijodi Chelsey [facility] CBC W/PLT COUNT & AUTO 2023-01-28 05:32:00 Yuni, Evgenysantanajodi Chelsey [place] [facility] METHOTREXATE LEVEL 2023-01-27 18:10:00 Teebrad [facility] PH, URINE 2023-01-27 07:22:00 Yuni, Evgenysantanajodi [facility] COMPREHENSIVE METABOLIC 2023-01-27 05:09:00 [facility] AUTO 2023-01-27 05:09:00 Yuni, Tra España [facility] URIC ACID 2023-01-27 05:09:00 Yuni, Tra Barbosa [facility] LACTATE DEHYDROGENASE 2023-01-27 05:09:00 Yuni, Tra Barbosa [facility] ([facility]) [facility] CBC W/PLT COUNT & AUTO 2023-01-27 05:09:00 Yuni, Tra España [facility] PH, URINE 2023-01-26 21:16:00 Yuni, Tra Barbosa [facility] METHOTREXATE LEVEL 2023-01-26 17:52:00 Ben [facility] PH, URINE 2023-01-26 10:23:00 Anne Price [facility] PH, URINE 2023-01-26 04:50:00 Anne Price [facility] COMPREHENSIVE METABOLIC 2023-01-26 04:42:00 Yuni, Tra Barbosa [facility] CBC W/PLT COUNT & AUTO 2023-01-26 04:42:00 YuniTra [facility] URIC ACID 2023-01-26 04:42:00 Yuni, Tra Barbosa [facility] LACTATE DEHYDROGENASE 2023-01-26 04:42:00 Yuni, Tra Barbosa [facility] ([facility]) [facility] CBC W/PLT COUNT & AUTO 2023-01-26 04:42:00 Yuni, Tra [place] [facility] PH, URINE 2023-01-26 00:32:00 Anne Price [facility] METHOTREXATE LEVEL 2023-01-25 17:47:00 Ben [facility] PH, URINE 2023-01-25 15:15:00 Anne Price [facility] CBC W/PLT COUNT & AUTO 2023-01-25 06:24:[address] [facility] COMPREHENSIVE METABOLIC 2023-01-25 06:24:[address] [facility] MAGNESIUM 2023-01-25 06:24:00 JamiVeronica [facility] PHOSPHORUS 2023-01-25 06:24:00 Jami Veronica [facility] URIC ACID 2023-01-25 06:24:00 [facility] Veronica [facility] LACTATE DEHYDROGENASE 2023-01-25 06:24:00 [facility] CBC W/PLT COUNT & AUTO 2023-01-25 06:24:[address] [facility] PH, URINE 2023-01-24 14:02:00 Anen Price [facility] CBC W/PLT COUNT & AUTO 2023-01-24 05:11:[address] [facility] COMPREHENSIVE METABOLIC 2023-01-24 05:11:[address] [facility] MAGNESIUM 2023-01-24 05:11:00 Jami Veronica [facility] PHOSPHORUS 2023-01-24 05:11:00 [facility] Veronica [facility] URIC ACID 2023-01-24 05:11:00 [facility]onica [facility] LACTATE DEHYDROGENASE 2023-01-24 05:11:00 Jami Veronica Terri [facility] ([facility]) [facility] CBC W/PLT COUNT & AUTO 2023-01-24 05:11:00 [facility] Veronica Colten [facility] PH, URINE 2023-01-23 20:21:00 Anne Price [facility] US ABDOMEN LIMITED 2023-01-23 09:01:00 Veronica Kirkland [facility] CBC W/PLT COUNT & AUTO 2023-01-23 04:30:[address] [facility] COMPREHENSIVE METABOLIC 2023-01-23 04:30:[address] [facility] MAGNESIUM 2023-01-23 04:30:00 Jami Veronicaher Murray [facility] PHOSPHORUS 2023-01-23 04:30:00 Jami Veronica Terri [facility] URIC ACID 2023-01-23 04:30:00 [facility] LACTATE DEHYDROGENASE 2023-01-23 04:30:00 Jami Veronicaher Murray [facility] GAMMA GLUTAMYL 2023-01-23 04:30:00 [facility]ERASE ([facility]) [facility] CBC W/PLT COUNT & AUTO 2023-01-23 04:30:[address] [facility] 2D ECHO W/ DOPPLER 2023-01-22 18:38:34 Veronica Kirkland [facility] (CW/PW/COLOR) [facility] CBC W/PLT COUNT & AUTO 2023-01-22 16:56:[address] [facility] COMPREHENSIVE METABOLIC 2023-01-22 16:56:[address] [facility] MAGNESIUM 2023-01-22 16:56:00 [facility] DEHY[facility]SE 2023-01-22 16:56:00 Veronica Kirkland [facility] URIC ACID 2023-01-22 16:56:[address] [facility] PHOSPHORUS 2023-01-22 16:56:00 [facility] CBC W/PLT COUNT & AUTO 2023-01-22 16:56:[address] [facility] XR CHEST 1 VIEW PORTABLE 2023-01-22 15:11:00 Veronica Kirkland [facility] SARS-COV2/RT-PCR ([facility] & 2023-01-22 08:19:00 Sally Alexandra [facility] REF LABS) [facility] [place] HIV AB/AG 4TH GEN W RFLX 2023-01-14 16:27:00 [facility] HEPATITIS B SURFACE AB 2023-01-14 16:27:00 [facility] HEPATITIS B SURFACE 2023-01-14 16:27:00 [facility] HEP B CORE ANTIBODY, 2023-01-14 16:27:00 [facility] TOTAL [facility] LACTATE DEHYDROGENASE 2023-01-14 16:27:00 [facility] COMPREHENSIVE METABOLIC 2023-01-14 16:27:00 [facility] CBC W/AUTO DIFF WITH 2023-01-14 16:27:00 [facility] BETA 2 MICROGLOBULIN 2023-01-14 16:27:00 [facility] SERUM [facility] URIC ACID 2023-01-14 16:27:00 [facility] LACTATE DEHYDROGENASE 2023-01-14 16:06:55 [facility] AMB REF TO INTERVENTIONAL 2023-01-14 16:06:55 [facility] EXTERNAL Medicine POCT-GLUCOSE METER 2023-01-09 11:09:00 Veronica Kirkland [facility] POCT-GLUCOSE METER 2023-01-09 08:01:00 Veronica Kirkland [facility] CBC W/PLT COUNT & AUTO 2023-01-09 04:21:[address] [facility] BASIC METABOLIC PANEL 2023-01-09 04:21:00 Sharifa Mitchell [facility] MAGNESIUM 2023-01-09 04:21:00 Sharifa Mitchell [facility] HEMOGLOBIN A1C 2023-01-09 04:21:00 Veronica Kirkland [facility] CBC W/PLT COUNT & AUTO 2023-01-09 04:21:[address] [facility] POCT-GLUCOSE METER 2023-01-08 22:41:00 Veronica Kirkland [facility] POCT-GLUCOSE METER 2023-01-08 16:42:00 Veronica Kirkland [facility] US TESTICULAR (SCROTUM) 2023-01-08 15:05:[address] [facility] HCG, QUANTITATIVE, 2023-01-08 10:53:00 Sharifa Mitchell [facility] ALPHA FETOPROTEIN (AFP), 2023-01-08 10:53:00 [facility] Institute TUMOR MARKER [facility] ALKALINE PHOSPHATASE 2023-01-08 10:53:00 Sharifa Mitchell [facility] LACTATE DEHYDROGENASE 2023-01-08 10:53:00 Sharifa Mitchell [facility] ([facility]) [facility] POCT-GLUCOSE METER 2023-01-08 10:50:00 Veronica Kirkland [facility] POCT-GLUCOSE METER 2023-01-08 07:35:00 Veronica Kirkland [facility] CBC W/PLT COUNT & AUTO 2023-01-08 04:58:[address] [facility] BASIC METABOLIC PANEL 2023-01-08 04:58:00 Sharifa Mitchell [facility] MAGNESIUM 2023-01-08 04:58:00 Sharifa Mitchell [facility] CBC W/PLT COUNT & AUTO 2023-01-08 04:58:00 Afaq, Muhammed Demetrius [facility] POCT-GLUCOSE METER 2023-01-07 22:27:00 Veronica Kirkland [facility] POCT-GLUCOSE METER 2023-01-07 18:44:00 Veronica Kirkland [facility] TISSUE EXAM 2023-01-07 15:09:00 Som Kamara [facility] FLOW CYTOMETRY 2023-01-07 15:09:00 Som Kamara [facility] FLOW CYTOMETRY 2023-01-07 15:09:00 Som Kamara [facility] REQUISITION Medical Center FL FLUORO NON-SPECIFIC UP 2023-01-07 15:08:00 Sharifa Mitchell [facility] TO 1 HOUR Medical Center XR SPINE THORACIC 1 VIEW 2023-01-07 13:50:00 MentorSom [facility] LAMINECTOMY, SPINE, 2023-01-07 12:45:00 MentorSom [facility] PROCEDURE W/ C-ARM 2023-01-07 12:45:00 MentorSom [facility] POCT-GLUCOSE METER 2023-01-07 11:56:00 Veronica Kirkland [facility] ABORH, MANUAL 2023-01-07 06:43:00 Fatoumata Garcia [facility] APTT 2023-01-07 06:43:00 Sharifa Mitchell [facility] TYPE AND SCREEN, 2023-01-07 06:03:00 Jerrod Dueñas [facility] AUTOMATED [facility] CBC W/PLT COUNT & AUTO 2023-01-07 06:03:[address] [facility] SARS-COV2/RT-PCR ([facility] & 2023-01-07 06:03:00 Sharifa Mitchell [facility] REF LABS) Medical Center CBC W/PLT COUNT & AUTO 2023-01-07 06:03:[address] [facility] BASIC METABOLIC PANEL 2023-01-07 06:03:00 Sharifa Mitchell [facility] ECG 12-LEAD 2023-01-07 05:40:27 [facility] CT BRAIN WITH & WITHOUT 2023-01-06 23:49:00 Fazal Dhaliwal [facility] IV CONTRAST Medical Center CT ABDOMEN/PELVIS WITH IV 2023-01-06 23:49:00 Konrad Espinoza [facility] CONTRAST [facility] CT CHEST WITH IV CONTRAST 2023-01-06 23:49:00 Konrad Espinoza CH I [facility] TSH/FREE T4 IF INDICATED 2023-01-06 20:03:00 Afaq, Fazal Rivera [facility] VITAMIN B12 2023-01-06 20:03:00 Afaq, Fazal [facility] T4, FREE 2023-01-06 20:03:00 Afaq, Fazal Barahona [facility] CBC W/PLT COUNT & AUTO 2023-01-06 20:02:00 Afaq, Fazal Barahona [facility] CBC W/PLT COUNT & AUTO 2023-01-06 20:02:00 Af, Fazal Barahona [facility] COMPREHENSIVE METABOLIC 2023-01-06 20:02:00 Af, Fazal Riverarafael leone [facility] PROTHROMBIN TIME/INR 2023-01-06 20:02:00 Laurie, Fazal Demetrius España [facility] Plan of Care Planned Activity Planned Date Details Comments Source Future Scheduled 2024-01-[address] [facility] Test 00:00:00 [facility] r Screening (12+) [code = Tobacco Cessation Counseling and Screening (12+)] Future Scheduled 2024-01-[address] [facility] Test 00:00:00 [facility]ing [facility] Medical Cente r Screening (12+) [code = Tobacco Cessation Counseling and Screening (12+)] Future Scheduled 2024-01-[address] [facility] Test 00:00:00 [facility]ing [facility] Medical Cente r Screening (12+) [code = Tobacco Cessation Counseling and Screening (12+)] Future Scheduled 2024-01-[address] [facility] Test 00:00:00 [facility]ing [facility] Medical Cente r Screening (12+) [code = Tobacco Cessation Counseling and Screening (12+)] Future Scheduled 2024-01-[address] [facility] Test 00:00:00 Counseling and Medical Cente r Screening (12+) [code = Tobacco Cessation Counseling and Screening (12+)] Future Scheduled 2024-01-[address] [facility] Test 00:00:00 Counseling and Medical Cente r Screening (12+) [code = Tobacco Cessation Counseling and Screening (12+)] Future Scheduled 2024-01-[address] [facility] Test 00:00:00 Counseling and Medical Cente r Screening (12+) [code = Tobacco Cessation Counseling and Screening (12+)] Future Scheduled 2024-01-[address] [facility] Test 00:00:00 Counseling and Medical Cente r Screening (12+) [code = Tobacco Cessation Counseling and Screening (12+)] Future Scheduled 2023-06-[address] [facility] Test 00:00:00 (Season Ended) [code = Medic al Center INFLUENZA VACCINE (Season Ended)] Future Scheduled 2023-06-[address] [facility] Test 00:00:00 (Season Ended) [code = Medic al Center INFLUENZA VACCINE (Season Ended)] Future Scheduled 2023-06-[address] [facility] Test 00:00:00 (Season Ended) [code = Medic al Center INFLUENZA VACCINE (Season Ended)] Future Scheduled 2023-01-21 COVID-19 Vaccine (#1) [facility] Test 15:51:25 [code = COVID-19 Medicine Vaccine (#1)] Future Scheduled 2023-01-21 TETANUS SHOT (ADULT) [facility] Test 15:51:25 [code = TETANUS SHOT Medicin e (ADULT)] Future Scheduled 2023-01-21 Hepatitis C screening [facility] Test 15:51:25 (procedure) [code = Medicine [id number]] Future Scheduled 2023-01-21 FLU VACCINE > 6 MONTHS [facility] Test 15:51:25 [code = FLU VACCINE > Medici ne 6 MONTHS] Future Scheduled 2022-10-[address] [facility] Test 00:00:00 (12+) [code = Medical Center DEPRESSION SCREENING (12+)] Future Scheduled 2022-10-[address] [facility] Test 00:00:00 (12+) [code = Medical Center DEPRESSION SCREENING (12+)] Future Scheduled 2022-10-[address] [facility] Test 00:00:00 (12+) [code = Medical Center DEPRESSION SCREENING (12+)] Future Scheduled 2022-10-[address] [facility] Test 00:00:00 (12+) [code = Medical Center DEPRESSION SCREENING (12+)] Future Scheduled 2022-10-[address] [facility] Test 00:00:00 (12+) [code = Medical Center DEPRESSION SCREENING (12+)] Future Scheduled 2022-10-[address] [facility] Test 00:00:00 (12+) [code = Medical Center DEPRESSION SCREENING (12+)] Future Scheduled 2022-10-[address] [facility] Test 00:00:00 (12+) [code = Medical Center DEPRESSION SCREENING (12+)] Future Scheduled 2022-10-[address] [facility] Test 00:00:00 (12+) [code = Medical Center DEPRESSION SCREENING (12+)] Future Scheduled 2022-06-26 INFLUENZA VACCINE (#1) [facility]:00[facility]00 [code = INFLUENZA Medical Ce nter VACCINE (#1)] Future Scheduled 2022-06-26 INFLUENZA VACCINE (#1) [facility] 00:00:00 [code = INFLUENZA Medical Ce nter VACCINE (#1)] Future Scheduled 2022-06-26 INFLUENZA VACCINE (#1) [facility] 00:00:00 [code = INFLUENZA Medical Ce nter VACCINE (#1)] Future Scheduled 2022-06-26 INFLUENZA VACCINE (#1) [facility] 00:00:00 [code = INFLUENZA Medical Ce nter VACCINE (#1)] Future Scheduled 2022-06-26 INFLUENZA VACCINE (#1) [facility] 00:00:00 [code = INFLUENZA Medical Ce nter VACCINE (#1)] Future Scheduled [address] [facility] 00:00:00 (procedure) [code = [facility] [id number]] Future Scheduled [address] [facility] 00:00:00 (procedure) [code = [facility] [id number]] Future Scheduled [address] [facility] 00:00:00 (procedure) [code = [facility] [id number]] Future Scheduled [address] [facility] 00:00:00 (procedure) [code = [facility] [id number]] Future Scheduled [address] [facility] 00:00:00 (procedure) [code = [facility] [id number]] Future Scheduled 2007 DTAP/TDAP/TD [facility]ACCINES [facility]00 (1 - Tdap) [code = Medical C enter DTAP/TDAP/TD VACCINES (1 - Tdap)] Future Scheduled 2007 DTAP/TDAP/TD [facility]ACCINES [facility] 00:00:00 (1 - Tdap) [code = Medical C enter DTAP/TDAP/TD VACCINES (1 - Tdap)] Future Scheduled 2007 DTAP/TDAP/TD VACCINES [facility] 00:00:00 (1 - Tdap) [code = Medical C enter DTAP/TDAP/TD VACCINES (1 - Tdap)] Future Scheduled 2007 DTAP/TDAP/TD [facility]ACCINES [facility] 00:00:00 (1 - Tdap) [code = Medical C enter DTAP/TDAP/TD VACCINES (1 - Tdap)] Future Scheduled 2007 DTAP/TDAP/TD VACCINES [facility] 00:00:00 (1 - Tdap) [code = Medical C enter DTAP/TDAP/TD VACCINES (1 - Tdap)] Future Scheduled 2007 DTAP/TDAP/TD [facility]ACCINES [facility] 00:00:00 (1 - Tdap) [code = Medical C enter DTAP/TDAP/TD VACCINES (1 - Tdap)] Future Scheduled 2007 DTAP/TDAP/TD VACCINES [facility] 00:00:00 (1 - Tdap) [code = Medical C enter DTAP/TDAP/TD VACCINES (1 - Tdap)] Future Scheduled 2007 DTAP/TDAP/TD VACCINES [facility] 00:00:00 (1 - Tdap) [code = Medical C enter DTAP/TDAP/TD VACCINES (1 - Tdap)] Future Scheduled 2006 HEPATITIS C SCRE[facility]ING [facility] 00:00:00 [code = HEPATITIS C Medical Center SCREENING] Future Scheduled 2006 HEPATITIS C [facility]CRE[facility]ING [facility] 00:00:00 [code = HEPATITIS C Medical Center SCREENING] Future Scheduled 2006 HEPATITIS C [facility]CRE[facility]ING [facility] 00:00:00 [code = HEPATITIS C Medical Center SCREENING] Future Scheduled 2006 HEPATITIS C [facility]CRE[facility]ING [facility] 00:00:00 [code = HEPATITIS C Medical Center SCREENING] Future Scheduled 2006 HEPATITIS C [facility]CRE[facility]ING [facility] 00:00:00 [code = HEPATITIS C Medical Center SCREENING] Future Scheduled 2006 HEPATITIS C [facility]ING [facility] 00:00:00 [code = HEPATITIS C Medical Center SCREENING] Future Scheduled 2006 HEPATITIS C [facility]CRE[facility]ING [facility] 00:00:00 [code = HEPATITIS C Medical Center SCREENING] Future Scheduled 2006 HEPATITIS C [facility]CRE[facility]ING [facility] 00:00:00 [code = HEPATITIS C Medical Center SCREENING] Future Scheduled [address] [facility] Test 00:00:00 0-64 YRS (1 - PCV) Medical C enter [code = PNEUMOCOCCAL VACCINE 0-64 YRS (1 - PCV)] Future Scheduled [address] [facility] Test 00:00:00 0-64 YRS (1 - PCV) Medical C enter [code = PNEUMOCOCCAL VACCINE 0-64 YRS (1 - PCV)] Future Scheduled [address] [facility] Test 00:00:00 0-64 YRS (1 - PCV) Medical C enter [code = PNEUMOCOCCAL VACCINE 0-64 YRS (1 - PCV)] Future Scheduled [address] [facility] Test 00:00:00 0-64 YRS (1 - PCV) Medical C enter [code = PNEUMOCOCCAL VACCINE 0-64 YRS (1 - PCV)] Future Scheduled [address] [facility] Test 00:00:00 0-64 YRS (1 - PCV) Medical C enter [code = PNEUMOCOCCAL VACCINE 0-64 YRS (1 - PCV)] Future Scheduled [address] [facility] Test 00:00:00 0-64 YRS (1 - PCV) Medical C enter [code = PNEUMOCOCCAL VACCINE 0-64 YRS (1 - PCV)] Future Scheduled [address] [facility] Test 00:00:00 0-64 YRS (1 - PCV) Medical C enter [code = PNEUMOCOCCAL VACCINE 0-64 YRS (1 - PCV)] Future Scheduled [address] [facility] Test 00:00:00 0-64 YRS (1 - PCV) Medical C enter [code = PNEUMOCOCCAL VACCINE 0-64 YRS (1 - PCV)] Future Scheduled 1988 COVID-19 VACCINE (#1) [facility] 00:00:00 [code = COVID-[address] VACCINE (#1)] Future Scheduled 1990 COVID-19 VACCINE (#1) [facility] 00:00:00 [code = COVID-[address] VACCINE (#1)] Future Scheduled 1990 COVID-19 VACCINE (#1) [facility] 00:00:00 [code = COVID-[address] VACCINE (#1)] Future Scheduled 1990 COVID-19 VACCINE (#1) [facility] 00:00:00 [code = COVID-[address] VACCINE (#1)] Future Scheduled 1990 COVID-19 VACCINE (#1) [facility] 00:00:00 [code = COVID-[address] VACCINE (#1)] Future Scheduled 1990 COVID-19 VACCINE (#1) [facility] 00:00:00 [code = COVID-[address] VACCINE (#1)] Future Scheduled 1990 COVID-19 VACCINE (#1) [facility] 00:00:00 [code = COVID-[address] VACCINE (#1)] Future Scheduled 1990 COVID-19 VACCINE (#1) [facility] 00:00:00 [code = COVID-[address] VACCINE (#1)] Encounters Start End Encounter Admission Attending Care Care Encounter Source Date/Time Date/Time Type Type Clinicians Facility Department ID 2020-04-09 Inpatient HCAPM [facility]OTT [id number] [facility] 20:47:00 [id number] [facility] 2023-03-13 2023-03-13 Outpatient ELIZABETH CASTELLANOS [facility] [id number] SLE 00:00:00 00:00:00 NICOLE 2023-03-13 2023-03-13 Outpatient ELIZABETH BUTCHER, [facility] [id number] SLE 00:00:00 00:00:00 NAOMY 2023-03-13 2023-03-13 Outpatient ELIZABETH BUTCHER [facility] [id number] SLE 00:00:00 00:00:00 NAOMY 2023-01-30 2023[facility]-30 [id number] [facility] [address] 07:13:00 07:13:[address] [facility] 2023-01-30 2023-01-30 [id number] 07:13:00 07:13:[address] [facility] 2023-01-30 2023-01-30 Outpatient ELIZABETH CASTELLANOS [facility] Surgery [id number] SLE 07:13:00 07:13:00 [facility] 2023-01-30 2023-01-30 [facility] [id number] 06:46:53 07:12:[address] [facility] 2023-01-30 2023-01-30 [facility] [id number] 06:46:53 07:12:[address] [facility] 2023-01-30 2023-01-30 Outpatient ELIZABETH CASTELLANOS [facility] [id number] SLE 06:46:53 07:12:00 [facility] 2023-01-30 2023-01-30 Surgery [facility], [facility] [id number] 06:25:00 06:48:00 Surgeon [facility] 2023-01-30 2023-01-30 Surgery Virtual, [facility] [id number] 06:25:00 06:48:00 Surgeon [facility] 2023-01-22 2023-01-30 [facility] Sally Robin [facility] [id number] 12:19:00 06:25:00 Encounter Veronica Kirkland [facility] 2023-01-22 2023-01-30 [facility] Sally Alexandra [facility] [id number] 12:19:00 06:25:00 Encounter Veronica Kirkland [facility] 2023-01-22 2023-01-30 Inpatient ELIZABETH EMMANUEL [facility] Hematology 20 [id number] [facility] 12:19:00 06:25:00 [facility] 2023-01-30 2023-01-30 Travel [facility] [id number] [facility] 00:[facility]00 00:00:00 [facility] 2023-01-30 2023-01-30 Travel [facility] [id number] [facility] 00:[facility]00 00:00:00 [facility] 2023-01-22 2023-01-22 Clinical Sally Robinbeverly [facility] [id number] 08:15:00 08:30:00 Support Jose Carlos [facility] 2023-01-22 2023-01-22 [facility] [id number] 08:15:00 08:30:00 Support Branch, [facility] 2023-01-22 2023-01-22 [facility] [id number] SLE 08:13:42 08:13:42 2023-01-22 2023-01-22 Telephone Jose Carlos [facility] [id number] 00:00:00 00:00:00 [facility] 2023-01-22 2023-01-22 Telephone Jose Carlos [facility] [id number] 00:00:00 00:00:00 [facility] 2023-01-21 2023-01-21 Office ALVARO Butcher [id number] [facility] 11:00:00 11:20:45 Visit Naomy AMBULATOR [id number] College Y [id number] Medi roma 300 e 2023-01-15 2023-01-15 Outside Jasmin [facility] [id number] 00:00:00 00:00:00 Orders [facility] 2023-01-15 2023-01-15 Outside Jasmin [facility] [id number] 00:00:00 00:00:00 Orders [facility] 2023-01-14 2023-01-14 Outpatient JASMIN [facility] [id number] [facility] 14:13:29 16:33:10 NICOLE Oshea e of Medicin e 2023-01-14 2023-01-14 Orders Jasmin [facility] [id number] 00:00:00 00:00:00 Only [facility] 2023-01-14 2023-01-14 Orders Jasmin [facility] [id number] 00:00:00 00:00:00 Only [facility] 2023-01-06 2023-01-09 Hospital ER José Manuel Bowens [facility] [id number] [facility] 18:32:00 13:25:00 Encounter Fazal Dhaliwal sally [facility] 2023-01-06 2023-01-09 [facility] José aMnuel Bowens [facility] [id number] [facility] 18:32:00 13:25:00 Encounter Fazal Dhaliwal sally [facility] 2023-01-06 2023-01-09 Inpatient ER [facility] Neuro ICU [id number] SLE 18:32:00 13:25:00 [facility] 2023-01-07 2023-01-07 Anesthesia Rubina Mireles [facility] [id number] 12:56:00 16:50:00 Event Bruna Parekh [facility] 2023-01-07 2023-01-07 Anesthesia Rubina Mireles [facility] [id number] 12:56:00 16:50:00 Event Bruna Parekh [facility] 2023-01-07 2023-01-07 Surgery Som Kamara [facility] [id number] 12:00:00 16:07:00 [facility] 2023-01-07 2023-01-07 Surgery Som Kamara [facility] [id number] 12:00:00 16:07:00 [facility] 2023-01-06 2023-01-06 Travel [facility] [id number] [facility] 00:00:00 00:00:00 [facility] 2023-01-06 2023-01-06 Travel [facility] [id number] [facility] 00:00:00 00:00:00 [facility] 2018-12-23 2018-12-23 [facility] [id number] Memoria 14:17:00 16:50:00 svetlana Carrillo 03 [facility] 2018-12-23 2018-12-23 [facility] [id number] Memoria 14:17:00 16:50:00 svetlana Carrillo 03 [facility] 2018-12-23 2018-12-[address] [facility] [id number] 08:17:00 10:50:00 Corazon 03 2018-06-03 2018-06-03 [facility] [id number] Memoria 15:02:00 23:03:00 svetlana Carrillo 02 [facility] 2018-06-03 2018-06-03 [facility] [id number] Memoria 15:02:00 23:03:00 svetlana Carrillo 02 [facility] 2018-06-03 2018-06-03 Outpatient Talon, [facility] [id number] 10:02:00 18:03:00 Ubaldo Khan 2017-08-27 2017-08-27 [facility] [id number] Memoria 14:35:00 18:35:00 svetlana Carrillo 01 [facility] 2017-08-27 2017-08-27 [facility] [id number] Memoria 14:35:00 18:35:00 svetlana Carrillo 01 l [facility] 2017-08-27 2017-08-27 Outpatient Belle [facility] [id number] 09:35:00 13:35:00 Tahir rGeen 2015-05-02 2015-05-02 [facility] [id number] Memoria 20:35:00 22:39:00 Emergency r Gerardo 00 l [facility] 2015-05-02 2015-05-02 [facility] [id number] Memoria 20:35:00 22:39:00 Emergency r Gerardo 00 l [facility] 2015-05-02 2015-05-02 Outpatient Radha [id number] 15:35:00 17:39:00 Tahir Mackenzie [id number] Results Test Description Test Time Test Comments Results Result Comments Source METHOTREXATE LEVEL 2023-01-30 17:57:55 Test Item Value Reference Range Interpretation Comme nts METHOTREXATE LEVEL (BEAKER) (test code = see scanned report See scanned report. 733) ANG, TUNNEL CATH CENTRAL INS W/PORT [id number] 16:43:00Please place mediport for chemotherapyReason for Exam:->Diffuse large b-cell lymphoma, lymph nodes of multiple sitesCHI [facility]OSHANA HOOVER : 1990 Sex: MFINAL REPORT Right internal jugular chest port insertion History: Lymphoma.Modality: Sonography and fluoroscopy. Sedation: Moderate sedation was administered. 1 mg of Versed and 50 mcg of fentanyl IV was used for moderate sedation monitored under my direction. Total intra-service time of sedation was 30 minutes. The patient's vital signs were monitored throughout the procedure and recorded in the patient's medical record by the nurse. Underwriting Support Manager: Sean Love MD Marine Cargo Specialist: None. Approach: Right internal jugular vein Estimated blood loss: < 5 cc. Specimen: None. Fluoroscopy Time: 0.1 min.Reference Air Kerma (Ka, r): 0.7 mGy. Technique: Informed written consent wa s obtained. Discussion of risks, benefits, and alternatives were made with the patient. The patient expressed understanding and agreed to proceed. A universal timeout was performed prior to starting the procedure. All elements maximal sterile barrier technique was utilized for this procedure, including utilization of sterile scrub solution for skin prep, a large sterile sheet to cover the areas of the patient that were not prepped, and hand hygiene, mask, head covering, and sterile gown for performing radiologist and scrub technologist. The skin was anesthetized with 2% lidocaine. Ultrasound evaluation showed a patent and compressible right internal jugular vein, which was punctured under direct real-time ultrasound guidance with a micropuncture needle. An ultrasound image was saved to PACS. A 0.018 inch wire was placed through the needle into the right atrium. A 4 Eritrean micropuncture sheath was placed and a 0.035 wire was advanced into the IVC. A subcutaneous tunnel and pocket were created inthe right anterior chest wall by blunt dissection. The pocket was flushed with antibiotic solution. A 6.6 Eritrean [employer] single lumen power injectable port was placed within the pocket and the catheter brought through the tunnel. The catheter was cut at 24 cm. A peel-away sheath was placed in the right IJ vein and the catheter was advanced through the sheath, with its distal tip terminating in the cavoatrial junction. The peel-away sheath was removed. The port was flushed and aspirated easily following placement. The skin incision was closed with 3-0 Monocryl and Dermabond. The small jugular incision site was closed using Dermabond. The patient tolerated the procedure well and left the department in the same condition. Results: Spot radiograph of the chest demonstrates the new right IJ Port-A-Cath to lie in the expected position with its tip overlying the cavoatrial junction. Impression: Successful, uncomplicated placement of a right internal jugular chest port using sonographic and fluoroscopic guidance and conscious sedation. The port is ready for immediate use. Signed: eSan Love MDReport Verified Date/Time: 01/30/2023 16:43:13 Reading Location: [place] [id number] Angio Body Reading Room [facility], [id number] 10:55:48 Test Item Value Reference Range Interpretation Comments pH, UA (test code = 8.0 5.0-8.0 5803-2) COLUMBA (test code = COLUMBA) [employer] Sheets Supervisor ID - [auto] Lab Interpretation (test Normal code = 61545-9) [facility], [id number] 10:55:48 Test Item Value Reference Range Interpretation Comments pH, UA (test code = 8.0 5.0-8.0 5803-2) COLUMBA (test code = COLUMBA) [employer] Supervisor ID - [auto] Lab Interpretation (test Normal code = 32288-8) [facility], [id number] 10:55:48 Test Item Value Reference Range Interpretation Comments pH, UA (test code = 8.0 5.0-8.0 5803-2) COLUMBA (test code = COLUMBA) [employer] Supervisor ID - [auto] Lab Interpretation (test Normal code = 98289-1) [facility], [id number] 10:55:48 Test Item Value Reference Range Interpretation Comments PH UA (BEAKER) (test code = 467) 8.0 5.0-8.0 [employer] Supervisor ID - [auto](CELLAVISION MANUAL DIFF)2023-01-30 08:55:54 Test Item Value Reference Range Interpretation Comments NEUTROPHILS - REL 61 % (CELLAVISION)(BEAKER) (test code = 2816) LYMPHOCYTES - REL 34 % (CELLAVISION)(BEAKER) (test code = 2817) EOSINOPHILS - REL 5 % (CELLAVISION)(BEAKER) (test code = 2819) NEUTROPHILS - ABS 0.98 K/ul 1.78-5.38 L (CELLAVISION)(BEAKER) (test code = 2830) LYMPHOCYTES - ABS 0.54 K/ul 1.32-3.57 L (CELLAVISION)(BEAKER) (test code = 2831) EOSINOPHILS - ABS 0.08 K/uL 0.04-0.54 (CELLAVISION)(BEAKER) (test code = 2834) TOTAL COUNTED (BEAKER) (test code 100 = 1351) MANUAL NRBC PER 100 CELLS (BEAKER) 1 /100 WBC 0-0 H (test code = 1353) WBC MORPHOLOGY (BEAKER) (test code Normal = 487) GIANT PLATELETS (BEAKER) (test Present code = 313) POLYCHROMATOPHILLIC RBCS(BEAKER) 1+ few (test code = 478) ARTIFACT (CELLAVISION)(BEAKER) Present (test code = 3432) PLATELET CONCENTRATION Decreased (CELLAVISION)(BEAKER) (test code = 3438) [employer] Supervisor ID - jasbir Michel comments: Slide comments:CBC W/PLT COUNT & AUTO [id number] 08:55:53 Test Item Value Reference Range Interpretation Comments WHITE BLOOD CELL COUNT (BEAKER) 1.6 K/ L 3.5-10.5 L (test code = 775) RED BLOOD CELL COUNT (BEAKER) 3.65 M/ L 4.63-6.08 L (test code = 761) HEMOGLOBIN (BEAKER) (test code = 11.2 GM/DL 13.7-17.5 L 410) HEMATOCRIT (BEAKER) (test code = 33.0 % 40.1-51.0 L 411) MEAN CORPUSCULAR VOLUME (BEAKER) 90 fL 79-92 (test code = 753) MEAN CORPUSCULAR HEMOGLOBIN 30.7 pg 25.7-32.2 (BEAKER) (test code = 751) MEAN CORPUSCULAR HEMOGLOBIN CONC 33.9 GM/DL 32.3-36.5 (BEAKER) (test code = 752) RED CELL DISTRIBUTION WIDTH 11.7 % 11.6-14.4 (BEAKER) (test code = 412) PLATELET COUNT (BEAKER) (test 137 K/CU MM 150-450 L code = 756) MEAN PLATELET VOLUME (BEAKER) 8.9 fL 9.4-12.4 L (test code = 754) NUCLEATED RED BLOOD CELLS 0 /100 WBC 0-0 (BEAKER) (test code = 413) PROTHROMBIN TIME/[id number] 08:39:40 Test Item Value Reference Range Interpretation Comments PROTIME (BEAKER) (test code = 13.0 seconds 11.9-14.2 759) INR (BEAKER) (test code = 370) 1.04 <=5.90 RECOMMENDED COUMADIN/WARFARIN INR THERAPY RANGESSTANDARD DOSE: 2.0 - 3.0 Includes: PROPHYLAXIS for venous thrombosis, systemic embolization; TREATMENT for venous thrombosis and/or pulmonary embolus.HIGH RISK: Target INR is 2.5-3.5 for patients with mechanical heart valves.CBC W/PLT COUNT & AUTO [id number] 07:49:11 Test Item Value Reference Range Interpretation Comments WHITE BLOOD CELL COUNT (BEAKER) 1.8 K/ L 3.5-10.5 L (test code = 775) RED BLOOD CELL COUNT (BEAKER) 3.66 M/ L 4.63-6.08 L (test code = 761) HEMOGLOBIN (BEAKER) (test code = 11.0 GM/DL 13.7-17.5 L 410) HEMATOCRIT (BEAKER) (test code = 32.6 % 40.1-51.0 L 411) MEAN CORPUSCULAR VOLUME (BEAKER) 89 fL 79-92 (test code = 753) MEAN CORPUSCULAR HEMOGLOBIN 30.1 pg 25.7-32.2 (BEAKER) (test code = 751) MEAN CORPUSCULAR HEMOGLOBIN CONC 33.7 GM/DL 32.3-36.5 (BEAKER) (test code = 752) RED CELL DISTRIBUTION WIDTH 11.7 % 11.6-14.4 (BEAKER) (test code = 412) PLATELET COUNT (BEAKER) (test 148 K/CU MM 150-450 L code = 756) MEAN PLATELET VOLUME (BEAKER) 9.0 fL 9.4-12.4 L (test code = 754) NUCLEATED RED BLOOD CELLS 0 /100 WBC 0-0 (BEAKER) (test code = 413) (CELLAVISION MANUAL DIFF)2023-01-30 07:49:11 Test Item Value Reference Range Interpretation Comments NEUTROPHILS - REL 54 % (CELLAVISION)(BEAKER) (test code = 2816) LYMPHOCYTES - REL 43 % (CELLAVISION)(BEAKER) (test code = 2817) EOSINOPHILS - REL 3 % (CELLAVISION)(BEAKER) (test code = 2819) NEUTROPHILS - ABS 0.97 K/ul 1.78-5.38 L (CELLAVISION)(BEAKER) (test code = 2830) LYMPHOCYTES - ABS 0.77 K/ul 1.32-3.57 L (CELLAVISION)(BEAKER) (test code = 2831) EOSINOPHILS - ABS 0.05 K/uL 0.04-0.54 (CELLAVISION)(BEAKER) (test code = 2834) TOTAL COUNTED (BEAKER) (test code = 100 1351) RBC MORPHOLOGY (BEAKER) (test code Normal = 762) WBC MORPHOLOGY (BEAKER) (test code Normal = 487) GIANT PLATELETS (BEAKER) (test code Present = 313) ARTIFACT (CELLAVISION)(BEAKER) Present (test code = 3432) PLATELET CONCENTRATION Adequate (CELLAVISION)(BEAKER) (test code = 3438) [employer] Supervisor ID - jasbir Michel comments: Slide comments:COMPREHENSIVE METABOLIC [id number] 06:42:05 Test Item Value Reference Range Interpretation Comments TOTAL PROTEIN 5.8 gm/dL 6.0-8.3 L (BEAKER) (test code = 770) ALBUMIN (BEAKER) 3.0 g/dL 3.5-5.0 L (test code = 1145) ALKALINE 62 U/L 40-150 PHOSPHATASE (BEAKER) (test code = 346) BILIRUBIN TOTAL 0.4 mg/dL 0.2-1.2 (BEAKER) (test code = 377) SODIUM (BEAKER) 139 meq/L 136-145 (test code = 381) POTASSIUM (BEAKER) 3.3 meq/L 3.5-5.1 L (test code = 379) CHLORIDE (BEAKER) 94 meq/L 98-107 L (test code = 382) CO2 (BEAKER) (test 36 meq/L 22-29 H code = 355) BLOOD UREA 9 mg/dL 7-21 NITROGEN (BEAKER) (test code = 354) CREATININE 0.66 mg/dL 0.57-1.25 (BEAKER) (test code = 358) GLUCOSE RANDOM 80 mg/dL 70-105 (BEAKER) (test code = 652) CALCIUM (BEAKER) 8.1 mg/dL 8.4-10.2 L (test code = 697) AST (SGOT) 139 U/L 5-34 H (BEAKER) (test code = 353) ALT (SGPT) 300 U/L 6-55 H (BEAKER) (test code = 347) EGFR (BEAKER) 125 Interpretatio n of eGFR (test code = 1092) mL/min/1.[address] age Description sq m Result G1 Vickie l or high >=90 G2 Mildly decreased 60-89 G3a Mildl y to moderately 45-5 9 G3b Moderately to s everely 30-44 G4 Severl y decreased 15-29 G5 Kidney failure <15Reported eGF R is based on the CKD-EPI 2020 equation that d oes not use a race coefficientEsti mated GFR is not as accur ate as Creatinine Yin paula in predicting glom erular filtration rate . Estimated GFR is not appl icable for dialysis patien ts [employer] Supervisor ID - [id number] 06:39:55 Test Item Value Reference Range Interpretation Comments MAGNESIUM (BEAKER) (test code = 1.8 mg/dL 1.6-2.6 627) [employer] Supervisor ID - [id number] 17:50:07 Test Item Value Reference Range Interpretation Comments POTASSIUM (BEAKER) (test code = 4.0 meq/L 3.5-5.1 379) [employer] Supervisor ID - BSMETHOTREXATE [id number] 13:49:55 Test Item Value Reference Range Interpretation Comments METHOTREXATE LEVEL (BEAKER) <0.04 See scanned report. (test code = 733) [id number] 13:39:21 Test Item Value Reference Range Interpretation Comments MAGNESIUM (BEAKER) (test code = 1.4 mg/dL 1.6-2.6 L 627) [employer] Supervisor ID - MARCOPH, [id number] 08:24:47 Test Item Value Reference Range Interpretation Comments PH UA (BEAKER) (test code = 467) 8.5 5.0-8.0 H [employer] Supervisor ID - [auto]COMPREHENSIVE METABOLIC [id number] 06:18:48 Test Item Value Reference Range Interpretation Comments TOTAL PROTEIN 4.3 gm/dL 6.0-8.3 L (BEAKER) (test code = 770) ALBUMIN (BEAKER) 2.3 g/dL 3.5-5.0 L (test code = 1145) ALKALINE 46 U/L 40-150 PHOSPHATASE (BEAKER) (test code = 346) BILIRUBIN TOTAL 0.2 mg/dL 0.2-1.2 (BEAKER) (test code = 377) SODIUM (BEAKER) 141 meq/L 136-145 (test code = 381) POTASSIUM (BEAKER) 2.3 meq/L 3.5-5.1 LL (test code = 379) CHLORIDE (BEAKER) 107 meq/L 98-107 (test code = 382) CO2 (BEAKER) (test 29 meq/L 22-29 code = 355) BLOOD UREA 7 mg/dL 7-21 NITROGEN (BEAKER) (test code = 354) CREATININE 0.51 mg/dL 0.57-1.25 L (BEAKER) (test code = 358) GLUCOSE RANDOM 75 mg/dL 70-105 (BEAKER) (test code = 652) CALCIUM (BEAKER) 6.0 mg/dL 8.4-10.2 LL (test code = 697) AST (SGOT) 164 U/L 5-34 H (BEAKER) (test code = 353) ALT (SGPT) 260 U/L 6-55 H (BEAKER) (test code = 347) EGFR (BEAKER) 133 Interpretatio n of eGFR (test code = 1092) mL/min/1.[address] age Description sq m Result G1 Norm al or high >=90 G2 Mildly decreased 60-89 G3a Mildl y to moderately 45-5 9 G3b Moderately to s everely 30-44 G4 Severl y decreased 15-29 G5 Kidney failure <15Reported eGF R is based on the CKD-EPI 2021 equation that d oes not use a race coefficientEsti mated GFR is not as accur ate as Creatinine Yin mitchell in predicting glom erular filtration rate . Estimated GFR is not appl icable for dialysis patien ts [employer] Supervisor ID - ADMINCBC W/PLT COUNT & AUTO [id number] 05:39:26 Test Item Value Reference Range Interpretation Comments WHITE BLOOD CELL COUNT (BEAKER) 2.2 K/ L 3.5-10.5 L (test code = 775) RED BLOOD CELL COUNT (BEAKER) 3.29 M/ L 4.63-6.08 L (test code = 761) HEMOGLOBIN (BEAKER) (test code = 10.2 GM/DL 13.7-17.5 L 410) HEMATOCRIT (BEAKER) (test code = 30.1 % 40.1-51.0 L 411) MEAN CORPUSCULAR VOLUME (BEAKER) 92 fL 79-92 (test code = 753) MEAN CORPUSCULAR HEMOGLOBIN 31.0 pg 25.7-32.2 (BEAKER) (test code = 751) MEAN CORPUSCULAR HEMOGLOBIN CONC 33.9 GM/DL 32.3-36.5 (BEAKER) (test code = 752) RED CELL DISTRIBUTION WIDTH 12.0 % 11.6-14.4 (BEAKER) (test code = 412) PLATELET COUNT (BEAKER) (test 132 K/CU MM 150-450 L code = 756) MEAN PLATELET VOLUME (BEAKER) 8.8 fL 9.4-12.4 L (test code = 754) NUCLEATED RED BLOOD CELLS 0 /100 WBC 0-0 (BEAKER) (test code = 413) NEUTROPHILS RELATIVE PERCENT 66 % (BEAKER) (test code = 429) LYMPHOCYTES RELATIVE PERCENT 28 % (BEAKER) (test code = 430) MONOCYTES RELATIVE PERCENT 1 % (BEAKER) (test code = 431) EOSINOPHILS RELATIVE PERCENT 6 % (BEAKER) (test code = 432) BASOPHILS RELATIVE PERCENT 1 % (BEAKER) (test code = 437) NEUTROPHILS ABSOLUTE COUNT 1.43 K/ L 1.78-5.38 L (BEAKER) (test code = 670) LYMPHOCYTES ABSOLUTE COUNT 0.60 K/ L 1.32-3.57 L (BEAKER) (test code = 414) MONOCYTES ABSOLUTE COUNT (BEAKER) 0.01 K/ L 0.30-0.82 L (test code = 415) EOSINOPHILS ABSOLUTE COUNT 0.12 K/ L 0.04-0.54 (BEAKER) (test code = 416) BASOPHILS ABSOLUTE COUNT (BEAKER) 0.01 K/ L 0.01-0.08 (test code = 417) IMMATURE GRANULOCYTES-RELATIVE 0.50 % 0.00-1.00 PERCENT (BEAKER) (test code = 2801) METHOTREXATE [id number] 04:48:03 Test Item Value Reference Range Interpretation Comments METHOTREXATE LEVEL 0.07 umol/L See scann ed report. (BEAKER) (test code = This t est was 733) performed at [facility] PH, [id number] 08:39:40 Test Item Value Reference Range Interpretation Comments PH UA (BEAKER) (test code = 467) 8.0 5.0-8.0 [employer] Supervisor ID - [auto]METHOTREXATE [id number] 06:56:57 Test Item Value Reference Range Interpretation Comments METHOTREXATE LEVEL 0.14 umol/L See scann ed (BEAKER) (test code = report .This test 733) was performed at:[facility] URIC [id number] 06:33:17 Test Item Value Reference Range Interpretation Comments URIC ACID (BEAKER) (test code = 2.1 mg/dL 2.6-7.2 L 773) [employer] Supervisor ID - MALLORY WLACTATE DEHYDROGENASE (LDH)2023-01-28 06:33:17 Test Item Value Reference Range Interpretation Comments LACTATE DEHYDROGENASE (BEAKER) (test 243 U/L 125-220 H code = 635) [employer] Supervisor ID - MALLORY WCOMPREHENSIVE METABOLIC [id number] 06:33:16 Test Item Value Reference Range Interpretation Comments TOTAL PROTEIN 5.7 gm/dL 6.0-8.3 L (BEAKER) (test code = 770) ALBUMIN (BEAKER) 3.1 g/dL 3.5-5.0 L (test code = 1145) ALKALINE 61 U/L 40-150 PHOSPHATASE (BEAKER) (test code = 346) BILIRUBIN TOTAL 0.9 mg/dL 0.2-1.2 (BEAKER) (test code = 377) SODIUM (BEAKER) 139 meq/L 136-145 (test code = 381) POTASSIUM (BEAKER) 3.5 meq/L 3.5-5.1 (test code = 379) CHLORIDE (BEAKER) 103 meq/L 98-107 (test code = 382) CO2 (BEAKER) (test 29 meq/L 22-29 code = 355) BLOOD UREA 10 mg/dL 7-21 NITROGEN (BEAKER) (test code = 354) CREATININE 0.81 mg/dL 0.57-1.25 (BEAKER) (test code = 358) GLUCOSE RANDOM 92 mg/dL 70-105 (BEAKER) (test code = 652) CALCIUM (BEAKER) 8.3 mg/dL 8.4-10.2 L (test code = 697) AST (SGOT) 189 U/L 5-34 H (BEAKER) (test code = 353) ALT (SGPT) 309 U/L 6-55 H (BEAKER) (test code = 347) EGFR (BEAKER) 119 Interpretatio n of eGFR (test code = 1092) mL/min/1.[address] age Description sq m Result G1 Vickie l or high >=90 G2 Mildly decreased 60-89 G3a Mildl y to moderately 45-5 9 G3b Moderately to s everely 30-44 G4 Severl y decreased 15-29 G5 Kidne y failure <15Reported eGF R is based on the CKD-EPI 2020 equation that d oes not use a race coefficientEsti mated GFR is not as accur ate as Creatinine Yin paula in predicting glom erular filtration rate . Estimated GFR is not appl icable for dialysis patien ts [employer] Supervisor ID - MALLORY WCBC W/PLT COUNT & AUTO [id number] 06:04:10 Test Item Value Reference Range Interpretation Comments WHITE BLOOD CELL COUNT (BEAKER) 3.2 K/ L 3.5-10.5 L (test code = 775) RED BLOOD CELL COUNT (BEAKER) 3.20 M/ L 4.63-6.08 L (test code = 761) HEMOGLOBIN (BEAKER) (test code = 9.9 GM/DL 13.7-17.5 L 410) HEMATOCRIT (BEAKER) (test code = 30.0 % 40.1-51.0 L 411) MEAN CORPUSCULAR VOLUME (BEAKER) 94 fL 79-92 H (test code = 753) MEAN CORPUSCULAR HEMOGLOBIN 30.9 pg 25.7-32.2 (BEAKER) (test code = 751) MEAN CORPUSCULAR HEMOGLOBIN CONC 33.0 GM/DL 32.3-36.5 (BEAKER) (test code = 752) RED CELL DISTRIBUTION WIDTH 12.1 % 11.6-14.4 (BEAKER) (test code = 412) PLATELET COUNT (BEAKER) (test 167 K/CU MM 150-450 code = 756) MEAN PLATELET VOLUME (BEAKER) 8.6 fL 9.4-12.4 L (test code = 754) NUCLEATED RED BLOOD CELLS 0 /100 WBC 0-0 (BEAKER) (test code = 413) NEUTROPHILS RELATIVE PERCENT 90 % (BEAKER) (test code = 429) LYMPHOCYTES RELATIVE PERCENT 8 % (BEAKER) (test code = 430) MONOCYTES RELATIVE PERCENT 0 % (BEAKER) (test code = 431) EOSINOPHILS RELATIVE PERCENT 1 % (BEAKER) (test code = 432) BASOPHILS RELATIVE PERCENT 0 % (BEAKER) (test code = 437) NEUTROPHILS ABSOLUTE COUNT 2.90 K/ L 1.78-5.38 (BEAKER) (test code = 670) LYMPHOCYTES ABSOLUTE COUNT 0.27 K/ L 1.32-3.57 L (BEAKER) (test code = 414) MONOCYTES ABSOLUTE COUNT (BEAKER) 0.01 K/ L 0.30-0.82 L (test code = 415) EOSINOPHILS ABSOLUTE COUNT 0.03 K/ L 0.04-0.54 L (BEAKER) (test code = 416) BASOPHILS ABSOLUTE COUNT (BEAKER) 0.00 K/ L 0.01-0.08 L (test code = 417) IMMATURE GRANULOCYTES-RELATIVE 0.30 % 0.00-1.00 PERCENT (BEAKER) (test code = 2801) 2D Echo W/Doppler(CW/PW/Color)2023-01-27 13:19:39[facility]LE[facility]CW/PW/Color)2023-01-27 13:19:39Ejection FractionSLEH [facility] W[facility]Doppler(CW/PW/Color) 2023-01-27 13:19:39[facility] [id number] 10:54:32 Test Item Value Reference Range Interpretation Comments PH UA (BEAKER) (test code = 467) 8.5 5.0-8.0 H LACTATE DEHYDROGENASE (LDH)2023-01-27 06:08:25 Test Item Value Reference Range Interpretation Comments LACTATE DEHYDROGENASE 311 U/L 125-220 H Specim en slightly (BEAKER) (test code = hemoly zed 635) [employer] Supervisor ID - MARCOCOMPREHENSIVE METABOLIC [id number] 06:06:09 Test Item Value Reference Range Interpretation Comments TOTAL PROTEIN 6.1 gm/dL 6.0-8.3 Specimen sligh tly (BEAKER) (test hemolyzed code = 770) ALBUMIN (BEAKER) 3.3 g/dL 3.5-5.0 L Specimen sl ightly (test code = 1145) hemolyzed ALKALINE 73 U/L 40-150 PHOSPHATASE (BEAKER) (test code = 346) BILIRUBIN TOTAL 0.8 mg/dL 0.2-1.2 Specimen sli ghtly (BEAKER) (test hemolyzed code = 377) SODIUM (BEAKER) 141 meq/L 136-145 (test code = 381) POTASSIUM (BEAKER) 3.6 meq/L 3.5-5.1 Specimen slightly (test code = 379) hemolyzed CHLORIDE (BEAKER) 106 meq/L 98-107 (test code = 382) CO2 (BEAKER) (test 28 meq/L 22-29 code = 355) BLOOD UREA 11 mg/dL 7-21 NITROGEN (BEAKER) (test code = 354) CREATININE 0.87 mg/dL 0.57-1.25 Specimen slight ly (BEAKER) (test hemolyzed code = 358) GLUCOSE RANDOM 87 mg/dL 70-105 (BEAKER) (test code = 652) CALCIUM (BEAKER) 8.5 mg/dL 8.4-10.2 (test code = 697) AST (SGOT) 201 U/L 5-34 H Specimen slight ly (BEAKER) (test hemolyzed code = 353) ALT (SGPT) 261 U/L 6-55 H Specimen slight ly (BEAKER) (test hemolyzed code = 347) EGFR (BEAKER) 117 Interpretatio n of eGFR (test code = 1092) mL/min/1.[address] age Description sq m Result G1 Vickie l or high >=90 G2 Mildly decreased 60-89 G3a Mildl y to moderately 45-5 9 G3b Moderately to s everely 30-44 G4 Severl y decreased 15-29 G5 Kidney failure <15Reported eGF R is based on the CKD-EPI 2020 equation that d oes not use a race coefficientEsti mated GFR is not as accur ate as Creatinine Yin paula in predicting glom erular filtration rate . Estimated GFR is not appl icable for dialysis patien ts [employer] Supervisor ID - MARCOURIC [id number] 06:06:08 Test Item Value Reference Range Interpretation Comments URIC ACID (BEAKER) 2.4 mg/dL 2.6-7.2 L Specimen slightly (test code = 773) hemolyzed [employer] Supervisor ID - MARCOCBC W/PLT COUNT & AUTO [id number] 05:40:18 Test Item Value Reference Range Interpretation Comments WHITE BLOOD CELL COUNT (BEAKER) 5.5 K/ L 3.5-10.5 (test code = 775) RED BLOOD CELL COUNT (BEAKER) 3.70 M/ L 4.63-6.08 L (test code = 761) HEMOGLOBIN (BEAKER) (test code = 11.4 GM/DL 13.7-17.5 L 410) HEMATOCRIT (BEAKER) (test code = 34.1 % 40.1-51.0 L 411) MEAN CORPUSCULAR VOLUME (BEAKER) 92 fL 79-92 (test code = 753) MEAN CORPUSCULAR HEMOGLOBIN 30.8 pg 25.7-32.2 (BEAKER) (test code = 751) MEAN CORPUSCULAR HEMOGLOBIN CONC 33.4 GM/DL 32.3-36.5 (BEAKER) (test code = 752) RED CELL DISTRIBUTION WIDTH 12.4 % 11.6-14.4 (BEAKER) (test code = 412) PLATELET COUNT (BEAKER) (test 213 K/CU MM 150-450 code = 756) MEAN PLATELET VOLUME (BEAKER) 9.0 fL 9.4-12.4 L (test code = 754) NUCLEATED RED BLOOD CELLS 0 /100 WBC 0-0 (BEAKER) (test code = 413) NEUTROPHILS RELATIVE PERCENT 82 % (BEAKER) (test code = 429) LYMPHOCYTES RELATIVE PERCENT 17 % (BEAKER) (test code = 430) MONOCYTES RELATIVE PERCENT 1 % (BEAKER) (test code = 431) EOSINOPHILS RELATIVE PERCENT 0 % (BEAKER) (test code = 432) BASOPHILS RELATIVE PERCENT 0 % (BEAKER) (test code = 437) NEUTROPHILS ABSOLUTE COUNT 4.46 K/ L 1.78-5.38 (BEAKER) (test code = 670) LYMPHOCYTES ABSOLUTE COUNT 0.92 K/ L 1.32-3.57 L (BEAKER) (test code = 414) MONOCYTES ABSOLUTE COUNT (BEAKER) 0.03 K/ L 0.30-0.82 L (test code = 415) EOSINOPHILS ABSOLUTE COUNT 0.02 K/ L 0.04-0.54 L (BEAKER) (test code = 416) BASOPHILS ABSOLUTE COUNT (BEAKER) 0.01 K/ L 0.01-0.08 (test code = 417) IMMATURE GRANULOCYTES-RELATIVE 0.40 % 0.00-1.00 PERCENT (BEAKER) (test code = 2801) PH, [id number] 21:26:15 Test Item Value Reference Range Interpretation Comments PH UA (BEAKER) (test code = 467) 8.0 5.0-8.0 METHOTREXATE [id number] 13:51:40 Test Item Value Reference Range Interpretation Comments METHOTREXATE LEVEL (BEAKER) 0.81 See scanned report (test code = 733) PH, [id number] 12:16:58 Test Item Value Reference Range Interpretation Comments PH UA (BEAKER) (test code = 467) 8.5 5.0-8.0 H LACTATE DEHYDROGENASE (LDH)2023-01-26 05:52:06 Test Item Value Reference Range Interpretation Comments LACTATE DEHYDROGENASE (BEAKER) (test 174 U/L 125-220 code = 635) [employer] Supervisor ID - BSCOMPREHENSIVE METABOLIC [id number] 05:52:05 Test Item Value Reference Range Interpretation Comments TOTAL PROTEIN 6.3 gm/dL 6.0-8.3 (BEAKER) (test code = 770) ALBUMIN (BEAKER) 3.4 g/dL 3.5-5.0 L (test code = 1145) ALKALINE 75 U/L 40-150 PHOSPHATASE (BEAKER) (test code = 346) BILIRUBIN TOTAL 0.2 mg/dL 0.2-1.2 (BEAKER) (test code = 377) SODIUM (BEAKER) 139 meq/L 136-145 (test code = 381) POTASSIUM (BEAKER) 3.9 meq/L 3.5-5.1 (test code = 379) CHLORIDE (BEAKER) 104 meq/L 98-107 (test code = 382) CO2 (BEAKER) (test 25 meq/L 22-29 code = 355) BLOOD UREA 10 mg/dL 7-21 NITROGEN (BEAKER) (test code = 354) CREATININE 0.87 mg/dL 0.57-1.25 (BEAKER) (test code = 358) GLUCOSE RANDOM 155 mg/dL 70-105 H (BEAKER) (test code = 652) CALCIUM (BEAKER) 8.4 mg/dL 8.4-10.2 (test code = 697) AST (SGOT) 64 U/L 5-34 H (BEAKER) (test code = 353) ALT (SGPT) 111 U/L 6-55 H (BEAKER) (test code = 347) EGFR (BEAKER) 117 Interpretatio n of eGFR (test code = 1092) mL/min/1.[address] age Description sq m Result G1 Vickie l or high >=90 G2 Mildly decreased 60-89 G3a Mildl y to moderately 45-5 9 G3b Moderately to s everely 30-44 G4 Severl y decreased 15-29 G5 Kidney failure <15Reported eGF R is based on the CKD-EPI 2020 equation that d oes not use a race coefficientEsti mated GFR is not as accur ate as Creatinine Yin paula in predicting glom erular filtration rate . Estimated GFR is not appl icable for dialysis patien ts [employer] Supervisor ID - BSURIC [id number] 05:52:05 Test Item Value Reference Range Interpretation Comments URIC ACID (BEAKER) (test code = 2.8 mg/dL 2.6-7.2 773) [employer] Supervisor ID - BSP[facility], [id number] 05:34:31 Test Item Value Reference Range Interpretation Comments PH UA (BEAKER) (test code = 467) 8.5 5.0-8.0 H CBC W/PLT COUNT & AUTO [id number] 05:19:04 Test Item Value Reference Range Interpretation Comments WHITE BLOOD CELL COUNT (BEAKER) 7.6 K/ L 3.5-10.5 (test code = 775) RED BLOOD CELL COUNT (BEAKER) 3.73 M/ L 4.63-6.08 L (test code = 761) HEMOGLOBIN (BEAKER) (test code = 11.5 GM/DL 13.7-17.5 L 410) HEMATOCRIT (BEAKER) (test code = 34.7 % 40.1-51.0 L 411) MEAN CORPUSCULAR VOLUME (BEAKER) 93 fL 79-92 H (test code = 753) MEAN CORPUSCULAR HEMOGLOBIN 30.8 pg 25.7-32.2 (BEAKER) (test code = 751) MEAN CORPUSCULAR HEMOGLOBIN CONC 33.1 GM/DL 32.3-36.5 (BEAKER) (test code = 752) RED CELL DISTRIBUTION WIDTH 12.7 % 11.6-14.4 (BEAKER) (test code = 412) PLATELET COUNT (BEAKER) (test 270 K/CU MM 150-450 code = 756) MEAN PLATELET VOLUME (BEAKER) 9.3 fL 9.4-12.4 L (test code = 754) NUCLEATED RED BLOOD CELLS 0 /100 WBC 0-0 (BEAKER) (test code = 413) NEUTROPHILS RELATIVE PERCENT 90 % (BEAKER) (test code = 429) LYMPHOCYTES RELATIVE PERCENT 8 % (BEAKER) (test code = 430) MONOCYTES RELATIVE PERCENT 2 % (BEAKER) (test code = 431) EOSINOPHILS RELATIVE PERCENT 0 % (BEAKER) (test code = 432) BASOPHILS RELATIVE PERCENT 0 % (BEAKER) (test code = 437) NEUTROPHILS ABSOLUTE COUNT 6.82 K/ L 1.78-5.38 H (BEAKER) (test code = 670) LYMPHOCYTES ABSOLUTE COUNT 0.59 K/ L 1.32-3.57 L (BEAKER) (test code = 414) MONOCYTES ABSOLUTE COUNT (BEAKER) 0.11 K/ L 0.30-0.82 L (test code = 415) EOSINOPHILS ABSOLUTE COUNT 0.01 K/ L 0.04-0.54 L (BEAKER) (test code = 416) BASOPHILS ABSOLUTE COUNT (BEAKER) 0.00 K/ L 0.01-0.08 L (test code = 417) IMMATURE GRANULOCYTES-RELATIVE 0.40 % 0.00-1.00 PERCENT (BEAKER) (test code = 2801) PH, [id number] 01:57:03 Test Item Value Reference Range Interpretation Comments PH UA (BEAKER) (test code = 467) 8.5 5.0-8.0 H PH, [id number] 15:33:57 Test Item Value Reference Range Interpretation Comments PH UA (BEAKER) (test code = 467) 8.0 5.0-8.0 [employer] Supervisor ID - [id number] 07:41:42 Test Item Value Reference Range Interpretation Comments PHOSPHORUS (BEAKER) (test code = 3.0 mg/dL 2.3-4.7 604) [employer] Supervisor ID - MARCOURIC [id number] 07:41:42 Test Item Value Reference Range Interpretation Comments URIC ACID (BEAKER) (test code = 4.4 mg/dL 2.6-7.2 773) [employer] Supervisor ID - MARCOLACTATE DEHYDROGENASE (LDH)[id number] 07:41:42 Test Item Value Reference Range Interpretation Comments LACTATE DEHYDROGENASE (BEAKER) (test 182 U/L 125-220 code = 635) [employer] Supervisor ID - MARCOCOMPREHENSIVE METABOLIC [id number] 07:41:41 Test Item Value Reference Range Interpretation Comments TOTAL PROTEIN 6.6 gm/dL 6.0-8.3 (BEAKER) (test code = 770) ALBUMIN (BEAKER) 3.6 g/dL 3.5-5.0 (test code = 1145) ALKALINE 83 U/L 40-150 PHOSPHATASE (BEAKER) (test code = 346) BILIRUBIN TOTAL 0.5 mg/dL 0.2-1.2 (BEAKER) (test code = 377) SODIUM (BEAKER) 138 meq/L 136-145 (test code = 381) POTASSIUM (BEAKER) 3.8 meq/L 3.5-5.1 (test code = 379) CHLORIDE (BEAKER) 103 meq/L 98-107 (test code = 382) CO2 (BEAKER) (test 27 meq/L 22-29 code = 355) BLOOD UREA 9 mg/dL 7-21 NITROGEN (BEAKER) (test code = 354) CREATININE 0.82 mg/dL 0.57-1.25 (BEAKER) (test code = 358) GLUCOSE RANDOM 145 mg/dL 70-105 H (BEAKER) (test code = 652) CALCIUM (BEAKER) 9.0 mg/dL 8.4-10.2 (test code = 697) AST (SGOT) 28 U/L 5-34 (BEAKER) (test code = 353) ALT (SGPT) 73 U/L 6-55 H (BEAKER) (test code = 347) EGFR (BEAKER) 119 Interpretatio n of eGFR (test code = 1092) mL/min/1.[address] age Description sq m Result G1 Vickie l or high >=90 G2 Mildly decreased 60-89 G3a Mildl y to moderately 45-5 9 G3b Moderately to s everely 30-44 G4 Severl y decreased 15-29 G5 Kidne y failure <15Reported eGF R is based on the CKD-EPI 202 equation that d oes not use a race coefficientEsti mated GFR is not as accur ate as Creatinine Yin paula in predicting glom erular filtration rate . Estimated GFR is not appl icable for dialysis patien ts [employer] Supervisor ID - [id number] 07:41:41 Test Item Value Reference Range Interpretation Comments MAGNESIUM (BEAKER) (test code = 2.0 mg/dL 1.6-2.6 627) [employer] Supervisor ID - MARCOCBC W/PLT COUNT & AUTO [id number] 06:36:26 Test Item Value Reference Range Interpretation Comments WHITE BLOOD CELL COUNT (BEAKER) 9.0 K/ L 3.5-10.5 (test code = 775) RED BLOOD CELL COUNT (BEAKER) 3.91 M/ L 4.63-6.08 L (test code = 761) HEMOGLOBIN (BEAKER) (test code = 12.1 GM/DL 13.7-17.5 L 410) HEMATOCRIT (BEAKER) (test code = 35.4 % 40.1-51.0 L 411) MEAN CORPUSCULAR VOLUME (BEAKER) 91 fL 79-92 (test code = 753) MEAN CORPUSCULAR HEMOGLOBIN 30.9 pg 25.7-32.2 (BEAKER) (test code = 751) MEAN CORPUSCULAR HEMOGLOBIN CONC 34.2 GM/DL 32.3-36.5 (BEAKER) (test code = 752) RED CELL DISTRIBUTION WIDTH 12.2 % 11.6-14.4 (BEAKER) (test code = 412) PLATELET COUNT (BEAKER) (test 288 K/CU MM 150-450 code = 756) MEAN PLATELET VOLUME (BEAKER) 8.8 fL 9.4-12.4 L (test code = 754) NUCLEATED RED BLOOD CELLS 0 /100 WBC 0-0 (BEAKER) (test code = 413) NEUTROPHILS RELATIVE PERCENT 86 % (BEAKER) (test code = 429) LYMPHOCYTES RELATIVE PERCENT 10 % (BEAKER) (test code = 430) MONOCYTES RELATIVE PERCENT 3 % (BEAKER) (test code = 431) EOSINOPHILS RELATIVE PERCENT 0 % (BEAKER) (test code = 432) BASOPHILS RELATIVE PERCENT 0 % (BEAKER) (test code = 437) NEUTROPHILS ABSOLUTE COUNT 7.68 K/ L 1.78-5.38 H (BEAKER) (test code = 670) LYMPHOCYTES ABSOLUTE COUNT 0.92 K/ L 1.32-3.57 L (BEAKER) (test code = 414) MONOCYTES ABSOLUTE COUNT (BEAKER) 0.30 K/ L 0.30-0.82 (test code = 415) EOSINOPHILS ABSOLUTE COUNT 0.01 K/ L 0.04-0.54 L (BEAKER) (test code = 416) BASOPHILS ABSOLUTE COUNT (BEAKER) 0.01 K/ L 0.01-0.08 (test code = 417) IMMATURE GRANULOCYTES-RELATIVE 0.30 % 0.00-1.00 PERCENT (BEAKER) (test code = 2801) PH, [id number] 14:37:16 Test Item Value Reference Range Interpretation Comments PH UA (BEAKER) (test code = 467) 8.5 5.0-8.0 H [employer] Supervisor ID - [auto][id number] 06:16:22 Test Item Value Reference Range Interpretation Comments MAGNESIUM (BEAKER) (test code = 2.0 mg/dL 1.6-2.6 627) [employer] Supervisor ID - [id number] 06:16:22 Test Item Value Reference Range Interpretation Comments PHOSPHORUS (BEAKER) (test code = 4.2 mg/dL 2.3-4.7 604) [employer] Supervisor ID - MMURIC [id number] 06:16:22 Test Item Value Reference Range Interpretation Comments URIC ACID (BEAKER) (test code = 4.5 mg/dL 2.6-7.2 773) [employer] Supervisor ID - MMLACTATE DEHYDROGENASE (LDH)2023-01-24 06:16:22 Test Item Value Reference Range Interpretation Comments LACTATE DEHYDROGENASE (BEAKER) (test 173 U/L 125-220 code = 635) [employer] Supervisor ID - MMCOMPREHENSIVE METABOLIC [id number] 06:16:21 Test Item Value Reference Range Interpretation Comments TOTAL PROTEIN 6.4 gm/dL 6.0-8.3 (BEAKER) (test code = 770) ALBUMIN (BEAKER) 3.4 g/dL 3.5-5.0 L (test code = 1145) ALKALINE 81 U/L 40-150 PHOSPHATASE (BEAKER) (test code = 346) BILIRUBIN TOTAL 0.3 mg/dL 0.2-1.2 (BEAKER) (test code = 377) SODIUM (BEAKER) 140 meq/L 136-145 (test code = 381) POTASSIUM (BEAKER) 3.2 meq/L 3.5-5.1 L (test code = 379) CHLORIDE (BEAKER) 103 meq/L 98-107 (test code = 382) CO2 (BEAKER) (test 28 meq/L 22-29 code = 355) BLOOD UREA 6 mg/dL 7-21 L NITROGEN (BEAKER) (test code = 354) CREATININE 0.80 mg/dL 0.57-1.25 (BEAKER) (test code = 358) GLUCOSE RANDOM 102 mg/dL 70-105 (BEAKER) (test code = 652) CALCIUM (BEAKER) 8.6 mg/dL 8.4-10.2 (test code = 697) AST (SGOT) 21 U/L 5-34 (BEAKER) (test code = 353) ALT (SGPT) 64 U/L 6-55 H (BEAKER) (test code = 347) EGFR (BEAKER) 120 Interpretatio n of eGFR (test code = 1092) mL/min/1.[address] age Description sq m Result G1 Vickie l or high >=90 G2 Mildly decreased 60-89 G3a Mildl y to moderately 45-5 9 G3b Moderately to s everely 30-44 G4 Severl y decreased 15-29 G5 Kidney failure <15Reported eGF R is based on the CKD-EPI 2021 equation that d oes not use a race coefficientEsti mated GFR is not as accur ate as Creatinine Yin paula in predicting glom erular filtration rate . Estimated GFR is not appl icable for dialysis patien ts [employer] Supervisor ID - MMCBC W/PLT COUNT & AUTO [id number] 05:43:29 Test Item Value Reference Range Interpretation Comments WHITE BLOOD CELL COUNT (BEAKER) 5.3 K/ L 3.5-10.5 (test code = 775) RED BLOOD CELL COUNT (BEAKER) 3.85 M/ L 4.63-6.08 L (test code = 761) HEMOGLOBIN (BEAKER) (test code = 11.8 GM/DL 13.7-17.5 L 410) HEMATOCRIT (BEAKER) (test code = 35.2 % 40.1-51.0 L 411) MEAN CORPUSCULAR VOLUME (BEAKER) 91 fL 79-92 (test code = 753) MEAN CORPUSCULAR HEMOGLOBIN 30.6 pg 25.7-32.2 (BEAKER) (test code = 751) MEAN CORPUSCULAR HEMOGLOBIN CONC 33.5 GM/DL 32.3-36.5 (BEAKER) (test code = 752) RED CELL DISTRIBUTION WIDTH 12.4 % 11.6-14.4 (BEAKER) (test code = 412) PLATELET COUNT (BEAKER) (test 280 K/CU MM 150-450 code = 756) MEAN PLATELET VOLUME (BEAKER) 8.9 fL 9.4-12.4 L (test code = 754) NUCLEATED RED BLOOD CELLS 0 /100 WBC 0-0 (BEAKER) (test code = 413) NEUTROPHILS RELATIVE PERCENT 50 % (BEAKER) (test code = 429) LYMPHOCYTES RELATIVE PERCENT 36 % (BEAKER) (test code = 430) MONOCYTES RELATIVE PERCENT 9 % (BEAKER) (test code = 431) EOSINOPHILS RELATIVE PERCENT 4 % (BEAKER) (test code = 432) BASOPHILS RELATIVE PERCENT 1 % (BEAKER) (test code = 437) NEUTROPHILS ABSOLUTE COUNT 2.61 K/ L 1.78-5.38 (BEAKER) (test code = 670) LYMPHOCYTES ABSOLUTE COUNT 1.90 K/ L 1.32-3.57 (BEAKER) (test code = 414) MONOCYTES ABSOLUTE COUNT (BEAKER) 0.49 K/ L 0.30-0.82 (test code = 415) EOSINOPHILS ABSOLUTE COUNT 0.20 K/ L 0.04-0.54 (BEAKER) (test code = 416) BASOPHILS ABSOLUTE COUNT (BEAKER) 0.05 K/ L 0.01-0.08 (test code = 417) IMMATURE GRANULOCYTES-RELATIVE 0.20 % 0.00-1.00 PERCENT (BEAKER) (test code = 2801) PH, [id number] 21:21:49 Test Item Value Reference Range Interpretation Comments PH UA (BEAKER) (test code = 467) 8.0 5.0-8.0 [employer] Supervisor ID - [auto]Tissue [id number] 14:05:09 Test Item Value Reference Range Interpretation Comments Case Report (test code = Surgical Pathology 104) Report Case: [id number] Authorizing Provider: Som Kamara III, MD Collected: 01/07/2023 03:09 PM Ordering Location: [address] Received: 01/07/2023 03:14 PM Service Pathologist: Kim Morel MD Specimens: A) - Mass, thoracic epidural mass B) - Mass, thoracic epidural mass ADDENDUM (test code = [id number] 3381) CkoysRwQAQzzWMhR2Subs uwUCkmBE7vDL5rpCpeyVP tfRPbWZNeLzQoj9mxi196 pZEai5elVZDPithklWp9m DwsX56dv2E9LsebW15ypN JpIBM5PEXaMQDhnHAbIGN iVOK1RUYqcPSlU6etLXYc EI0fxqanQTspQNfqIJDkq PV9KDVduHLqN0MeFGOwQX euTQQltok9WqLmBk8xyGZ yeTcyMFxwYXJkXHBsYWlu QIAbIzCvGyGki82sUIBfh jZlUFZeswG5tQgcTS2pqj Wxb8G7YTBoh5DcxOOrb4W bNSQqsEJry36bkSCksC15 dh0ziIH7i2EhVB3mX0JoY GRaGVEzjtMseFH5BZy3Lu CmBIr2IAXqz04ff2O0GCy cvy3ibUHeUBNwxwGUGpZG IGluIHNpdHUgaHlicmlka XphdGlvbiBpcyBuZWdhdG h1LLFwy6VzCDZYCuKpFnH mtQFcp1Yxu5p4NEJyf2m5 bBZwOOmoRIFey2Cqv0Q5D K0sQWS4xBCyE3GpCGQxpZ xzLlxwYXJccGFyIEFkZGl 0hM6fLJsoaQ2yvO6xqGpw jP7apXPwuDQshFLbiBOon ASoPUCcNPBfNBKed7GgRT DmLGXeQaViB7Kdx85lP3U eOVVbSMSvkW1nmN5kPSCf LKrzhwNufPHgthAmv7Ctu Hb0CSQns0KwF9DuQZxuR9 TBRpwmDu3PRWqkZT4pUGK ENzlhLCBhbmQgbmVnYXRp flKkLm4oEK9SDJrkQ0GbT BfnIX2hZWAEMyHdAHSdyt qhMDQzDLWdnbCuc7F9XBL zNbdtMgQlK0Rgn37vF0Gb ZQXBE2sbp4V4MOfemwMte 3IgQkNMNiwgTVlDLCBhbm LdJhWCIpPbSFMqbeQnY9I cIZ07XFCwJIFlBAlncGv4 OE5jxFWmDPYLQRUhqwXkd nJhbmdlbWVudDpcdGFiIE 4cbZTTNRPzU5IsFFlqLIQ eUAmXXZHxMNQwCM4yQP8r agR7ZPZwHcXMp6CzFCR7H YQ8JEUswTBdRQ5CGeDdbB TifLLfX0Y3aA1fAgk3JIR lJl82VZHpkATjtHTnFUMy uzTAH2utCAIiXECsJY5jS G6wnpD7GBKkKiHZc4OmTM B7MJI0QFSzcSMnAWGjWSa tVJz6JGZdMkg2IILzcOMh UT3uwLOECMTlU2CgRUjwF XJccGFyIFRoZSBvdmVyYW yzKVZoGPD9dhZqFMUaPQU rn1E8MXFgwbRco0CtlpYa h0y5jFBjhcFdfHOycVLct CBieSBkaWZmdXNlIGxhcm ysXFXgO3MtaSNdiP3fgA1 lNGAuONzRZ7mjQlZNvPBf jB4bzBodnK9etRXeHvWhr DVsBXQuGO0uWDEmpB8kE7 FsIHByZXNlbnRhdGlvbiB jlmIdX20qT3PcrshgFtIl g0AseLSfkKLpwAPeOIXnB RE2wC9arOMvSUKhRSXLUX NlbGwgbHltcGhvbWEgKFB NQkwpLiBBZGRpdGlvbmFs XQzcvKKtz6emw7YpF1ugm OziLLflo2C8QTcpdlXdd6 VzfJNcg0HpozRev8HsO6j ffQNrLDfjyXxnGK3XGGJt bmNsdWRpbmcgTUFMLCBDR WYtYZXemiXkN0MqXmyojR FcXd3ehIMkRSU8VP1uy6h umz2qaXTpTBEeatDffaZe DZDnqdT2MKtwp7O9BOPlL JiflcSjJGVvNQHyiH9ypL IvLS3fpSRdKAUtRfZ7yOX dT0HvwdRyySNcfC8gz6xd x2QiM8dvGP3mUSOyTAKmT QAdifNckagsOV0kwRBnf0 RxRqJwywTkvnHgVF65FRR fgoTta9GmhWzrEXSokHun ELIdNYUds58eJNZkqE8zV 1GmOPGupqJbsFS9tI3lBU lzIHJlcXVpcmVkLiBUaXN zdWUgaXMgYXZhaWxhYmxl BYAmkwMyv9fmV5BjWAKuj 9N5PWspfptvnANmM6yqwx pnKSjayFHtnmFzF0G0XHV uXHBhcn0= DIAGNOSIS (test code = d4xurHZtUWJog0vwLIVyw 3220) GFuZzEwMzNcZnRuYmpcdW MxIHtccnRmMVxlcGljOTY mIgcwcxOaGACewDMmG3Kn nmyuXLldPJ4aMS5pfRfvo KRauVRkLGVmDmQuu3enb1 81rXFfb9waHAWNqgoewKm 2jJjcR89ol0Z2DbprI55c xNFhMUC7IZOrZUVhfSGgX RCkPUH7VPGnzTJoX2peZB XrTU3eiiqdILvlVErmWTI ogWP7TSUloWMeC4PvGLKr MMxfDPWmixe3HrTwDt7qt GVyeTcyMFxwYXJkXHBsYW trJHReCfCyMC8cHZcBHqQ DSUMgRVBJRFVSQUwgTUFT UywgQklPUFNZOlxwYXIgL SBMQVJHRSBCIENFTEwgTF pJGXpXVSBbXDORJVOFF35 ISK0KVXiqHPMtrFUhUGPg FXOGH6ZSF7jXCMKBQTICN pBGMJ7GP0WxLPMAN8AQYR haiWExEY2gIVTMV3XgEaW WUIvDHElUTCGGI08DWMYM ZNTIFH3WCOVETU1HSKKfM WkURq9TWMZXFVcQXGHvD2 9NTUVOVClccGFyfXtccnR pWDazy1AjNKaiJAOyZZ7q bVzcFUFsKJ6nYXDdT3yut E4dndr2LrCkJKOmUvG5PJ BvamJ0Chl1IQIaADaqo6y zr8GiIFMuISc2hFafQvCh GLEsp2zakvXpFcFnOFJeW UGkJOPhfJGoQ267u8pvr1 jfpyUncHO1NIGkUDX7NAc mtgNhqsS6CSjhkVIxUhV5 IDtccmVkMFxncmVlbjBcY nd9OQGeJ127VRB5dYmdm8 cgCRY8NVNuMYVqRpEpPb4 laNZpS146KZLqHCMUXPPe xLj2HJNmytEodiMgmXQCl 016E453b8afJAIvpyGmiT gHmvkyw7cwC758DPExvWJ ydzEyMjQwXHBhcGVyaDE1 GGIfQI8gujsqERnpJNdkG GQvsuG4WJDpgWUtI9BvQJ AlZV7byzgiFOP1VAnrDNO sMPY0JuGvEYRwc3Sohty7 MfBryb0hxz67VLT0d9Pxw SckRWG7FAO2CoLyLv3wgF QcDZHbCR6fJaOqyULoLJC fwa30bYgdNHxiZXL2HARf cmIkw3Lic2ztGtNoagKlE 6iyU6TkWZZdRJAeHOWuVe AaagIov4Dym3IicXAtkId 7k8bzDFSoCUYgrPotq9lv UWP5SOYqmEZqW7rhdD7mY KHaYV5kztuhv5jsUPfsPN clSBYiwNO0ljD7QHXmaZX mP0KvhU6yTWUzRPjyXODj mel1MzDyMh0icQQscGlfT FxzYmtwYWdlXHBnbmNvbn RccGduZGVjXHBsYWluXHB sYWluXGYwXGZzMjRccWxc bGFuZzEwMzNcaGljaFxmM GvrYrJoZGLlFRurQ3zzPk CpCxOoXrp5VTDqqKAvDXX wXtl3BNCqrUDfIJDZvPdk aX0tNNJebFmhqL2frLL7H DSyurSjaIUXoG8rQLQHoX 6nCbA7OUUsNfs6TVD3OxU ccGFyfX0= COMMENT (test code = w2tyyBIzWJImwGH1SaZmJ 3359) NFis4cyl7ZprOQxiLAmFM egdRCmnaAxnb59tIG8uR1 6MB9ySTJcSfA4XEDwbjI0 Ngk5SAPjFFIsjEJiE211q 9kqt1imnaSjrRI7wSsuTS WlcltkHuN9JCbmQTPbvlk rLWx3CCcrEDShhUQ3FLWy aQKuQ1RiMZMaTK3ievv2X BX1GHkhKNKcIrC8DPSzxE TxYFHnyTpcECsdc200HFQ 5SzWqYRZufnEgiDuocP7x FaIqDTCKJAN9uN8hwvVzs J85YMsedy9gfhHxBM39YU H3TKJvdBKjT3VoOtVmUSm fVUy9uRVsy64gWN7kWLwf sh0xtjMgMSVpuyPemdVpe IPfo7R2gFHcBCEfd44hvU D5WCJrq7a2sUSlBXmyB4f dlFNhhReuQKVtkLg2QLYc lnQqhHLiYJMjwf94xN7cl UAttRL3BCVhQpkoI0iwFs cpLiBUaGUgZGlmZmVyZW5 0qQYxRYZkDBvuq7CzeeIl bmNsdWRlcyBkaWZmdXNlI AuweyppVSAzC9AqqRIgtC 7ahL1eMVenhDbviY3wyrM kZSBCIGNlbGwgbHltcGhv bWEsIGFzIHdlbGwgYXMgc SIswUCmpJYtTGJpUDG5yW 5hbCBsYXJnZSBCIGNlbGw gbHltcGhvbWEuIENvcnJl lGL2zZ4mSIvfbUqzqTImR GluZyBhZGRpdGlvbmFsIG ewqBZsj3npz8MsW4ddgQe pSLjhs4V1QSmpmawoHJGv r3CesOMqygTEFRTWVZC8f TFmOBClVs1mRCQtt5SnJw boHU2MWkwzQhKBOveyWA7 jE02tCCJWVWSoidFauxHb fztsvMLzqUZpwuNmSJQ3k PEjWDByr6TcOkXpeEzgoc BpbnRlcnByZXRhdGlvbiB bsiTzo3RhC2iuk5HpIvvw KIHpc00aYSGYQFZflI5oi 5t8kMDerIEguNUytrJ4cU 3tDYrkGYWyx92yfSIuQRu iHl6gLAwrs5TwgkNbkEd3 zlS6xWboVBFqVRWopB5uj PUkACleAWJee2OlAVSgoT RxBPPjZY1elB9tBLIrdaa iOPUhKOMmmInudA6ctnpy dfGqzVd5EZ6hPSx5rULap 7Yvn7pyRiWoWPNeuaYbdp RlbFyhq21ne7SdCCJhsL2 ydGVkIHRvIERyLiBDLiBL jE0nREuAPODkypWwZo4bE f4xTFHoOQD8GSCxTsKEUt JDvK8pNhRfnGs6buFdxlI ehQixDO2zHGJzAe6sAQDc XIf5vU2hWUppmN3uqH7ut BikgE8feCChaUNlxADdie LuF4r1x5dgyiV4hPMbl6W 4CWuiuuW0CTKpTXCer8D7 f9ZgENB8rNZqHOJouk8xF JJwBVvkSR06IAMqZYHHau 3pWLvjwC4nSHDgrzLqNw9 sVv2pGSLvOBQ3FDI4JsVq AW1pPAKepnbvOFDaCJ70l cBrWRIuqaRzUA14RXvqA5 3xw5BooNO9jT0eVxPKdrG dTQtoOOZvw7XdAUZibOZi uxByEU9aIEGzWIoqgCB0O LUvRTBtXTNoySDdD8QmYT KzegDrU71pZ7YbFPncyZm gdGhlIGludGVycHJldGF0 sP6qWxwjJLZ1 CPT Code(s) (test code = m7uilWKsGBUsgUT8AlOeN 3357) FOxc6qel7VanKGsyGKpPY mkeBMwfaWejg14dZR6uJ4 3BK6dVRJbObT8HNFgotI3 Bwb7HYKqHHVjkYWnL943h 4tco3ymamYvgWT3ePpdSR MncwsiSqG6XEvwQLHhmzt uACl5EEdrLOWayWQ4GJDn uQOdQ5PhIRFnOV0ghmq3I NY6YKlpGGBrVgZ9VSDwdO FaKUWlqEfaODxln536VMI 8PyUvLFEisjSnkKdmtQ6m RbKpVMR1RPEvGSglZKyjR iI4CLc2YsDxObN9HFW0OD M0FAG4ZsW7PBE7CTvyCWu zNjVccGFyfQ== CLINICAL HISTORY (test n4qdiQFfNTPfoOG4ScZhG code = 3356) FTyx3bka5VwbEPttRTxZC ogzUDezoVfhm98nSY4hK9 2KM5aSKUlLyA8LHSjekA0 Vwa7YGFlTSNzfETkH652r 4zkg4trdeFbdZC3XAMrTC UaY8MfXX7xBARdlVAzL39 ubGFnWQP2ZGKxYLLfpNYi PILqYQN8REBehMLiD9fvV TLwME8oyrlbZHhjSNfzXT KfjFH5YZIbpIFtV7RbDAC tGXdbFSEctgt5ReWlOh0b dGVyeTcyMFxwYXJkXHBsY WluXGZzMjAgMzQteWVhci 3mhHHzeZGuJRN9bFNtSUB hRAK1HMzbi1Cegvnzh0Tx l8GyTGtdXWCnAEB9iPYjj SOhNEAfH1FlPOrsKsLgJK Tzs8XzNVOkYFQzu1DqKyl bTXBbqeOyNKelo1UxIWJ2 gAYbwCs1fKEmGWT5nOMsR WDtadMoT19euEQhx4Wmv8 4yABEkHEMtZOB3FXKqhOu seA0saGNkGcLyN5J3gsP5 TCHJTOltTCcgculwk6v9f VZcTWIoTNHnmT9ySBFuSM BhbnRlcmlvciBtZWRpYXN 1vQ87hZsil0AeZHYnxFZw SXgieD5veLnzVVU3IOHqo F4sTRPaDVQzVBZhe3Zcxs AvLFOyF1uwluKiYZIuCJD 7ICV6ZMGeNZkzZu1jqNNd VXYoFSJqfHIijbAaQZA3z EFus4AtqvQrLTKikxTbMV XvjdHbTRkxffzvOm75zKF jnEI2vlUwXP4bv6IcK63x Q4DftptpUsDxl2PyqHW7b 2VtaWEvbHltcGhvbWEuXH Bhcn0= SPECIMEN SOURCE (test m5umaVCdGTIczEJ9UsEpL code = 3377) XBwy9ous6AbcENwnNZrPE lmkLMccoMqcs56gDU3gC8 9RK7dEOHlNrK0QVWdtdE8 Jam0QTKzCMThiGZrI223b 0pku7gmljKujSA9hVaaGQ HynejzFeD1BTfePWWfcyw oFCj6OPutCMWobPH2TIAk rWMdD0MdZWNfRC1vzst5J GC6YPrnTNSgAeF4TFSeuN LfERGcqEokSZxdu278RUD 3SkPtSPUftsUjuScrjL2a PiKiBAVQFWSNBvIDhL8oW WNpYyBlcGlkdXJhbCBtYX NzXHBhcn0= GROSS DESCRIPTION (test o7mlbWFlRMAlzUUKLWXlO code = [id number]) 6dzoyVnIZWncZIxG2Jypt ryDJtaFB3uYO9jmGmevRI wqSUxRY3BMNJuCuAoFSTs cGVydzEyMjQwXHBhcGVya IY3ORHlWO7keisuLPzlKN knLPJxbqC1QJXxwPKjJ7P vWSVgHL7jpweoSMY5PCop xP6uvkCQVgqjKc2yhVOzg HtcZjFcZmNoYXJzZXQwXG FzxYuaLBTtSSa4xX6RAyr hMHU5EVJHCmzgXGZzAB4Z m3ioIFFooEAfWOM3SRtpr AMsWUDoMDOeNVh8NHEcUC rutIEvCV8dzZhhPlzbaWy pw0EyhAGhJDhiJTQvQTUc CGdzLBKjDB6DPqYnFNtbV Pu2UHMfRJy3ROi2HN6LLu FfRNVyPhQ3FnX1HMIfLKw 4NIrcOV7DODB9Azc3LSG4 SuW3AWa7AfRbPIRfDiJiW GYgQXJpYWwgXFxmbCBcXG 5jfVxwbGFpbiBBLiBNYXN cNqinBWFlJRliADJiX27a c8FVe8OaNF2ILJt3awVtp fdxaT0uUNAkquXlCPiqbD FwR6agSrYuRZCDOSCxgXH uENGkwpUemNOnr5BupO20 ixZjoEPrQAUwwqWnL27ko 7JfvFD9kS8vBMRaQWYioE AaUEEgGLFaFFWeJW10Y2N gbmFtZSwgbWVkaWNhbCBy ZWNvcmQgbnVtYmVyLCBhb mQgZGVzaWduYXRlZCBhcy AidGhvcmFjaWMgZXBpZHV yYWwgbWFzcyIgaXMgYSAy LjAgeCAxLjUgeCAwLjggY 18qyKZaPEnraJcppgO8qm B1VA2zrOxrfnX5qWCjjNO yf9YwV5paTR9yIIJIb0Dy aCBwcmVwcyBhcmUgcHJlc QHwOMSxCC4vNGBzdR9wkG bvzrWebeHeVW62CALytwT weL41RKP5sX4cXFLgmRWs txUwV1x0m1zvvuV4mAJhI FAhJQS2rJBotgTzJIstEX MrYHraESV6Na8bjYMrYQE lbnRpcmVseSBpbiBjYXNz SFG9WQCMT8IwQUBeNLIPM g3FNfkweNLhqwkfxHviNm WusJLeUsPmbUtglN28OFP dlMPdHFD7AJ2fVWKjjigy LJLeMCWyNVL3CCmjqK85j VQoFDVoKCHcvMOafB0Kc7 zeMCSnwBZvLBG7WSshjED aAQMzTMAeLXtfTsQiQ0HH NBXbNZN0RBE2BsGmAEc7W YqcI4WXGRDrROCvZLRzAW B1OrL9MIa0ODZBAw2aFdv 5OKByGGq2PNC3PCfwXNgr dCAyIFxcZiBBcmlhbCBcX QPzEXgbkfG4YUMvBRDinJ gzeW5yHw1lKHPgld5zzQY eHQ3JJYHshBFJKWA3FZ1l MSANClxsdHJwYXJcbGluM WcynC7aXD8PZJf7wyVaZJ KhKaMkMhXmCQw0GQOcbW1 tKf2xwIGhbA3wJVhpRuBa CXChtEI1bLOylKnwJS7yv HHxCK6cTTrhXLuyuzYcp3 XhEQ19uMOvjxnmXTHknTn uYXRlZCBhcyAidGhvcmFj aWMgZXBpZHVyYWwgbWFzc yIgaXMgYSAzLjAgeCAyLj KrsYWjDaGeK39xfUUzZOy ewPkzkcX5ipN1YT5ojPbe dsAqY2fxGXmmhKLod5Nsp Lhcu1IyBgOoAZvmABEwuA riELS0SG8gIATaPEIzdYH jgE5snvGswaQgfXOdoLF9 ODSryU0uA6Uhe3U4vTWyB PPySIWmqy75H7dzVwEqJW zjiInkgK5gUAZuW52my5U Tj9YtXZJbTEfme1jgbXda b9AvtBIgSNqfAZSbaUObX VvjbC8wGaYjt5bkrVt2AJ rajmU1MIRmov9DRaqnyK9 qHpQvs9ovnJp4MEHATnkg fdZ5y7eikGlvz8UweHRnD H0NCn0= INTRAOPERATIVE d7dmvOGaWQFytHJVDHThW CONSULTATION (test code 9jiywFuAMSelQPkF5Matn = [id number]) ymZTpzXL9pJV7ftDwuxSJ jcFZtFE8YISFsOzWuMRMg cGVydzEyMjQwXHBhcGVya OV9SXWhOY6wcgrhZWxwKH cvUQVebjF3GMJfgOFwS2N rMUUjQF0tkblgDWB7YLfp qP5vqtPVSzvfGu9nlTFkg HtcZjFcZmNoYXJzZXQwXG PmjZwcJFZqYRs8cE6HNnr hZGS8UHXIDllpKTVdTR2B i7xoJTXvfLThCRB4KMovk GNxFAFvTGRkSSl5LHQvMZ qbaJGzRE7xuNagKqmjwPt an8OdfKBfEFycLGGuVDSi IOwqQYItJG7LBaUpGWgvJ Sd7GVGpJNe1DCg4QL9TZt WbWWWxGfU2KfF6XZAcHDt 0EYucSP3KLWQ3FTI1FOs7 QeQ0JBj5KtWlTQIvHnPwV GYgQXJpYWwgXFxmbCBcXG 5jfVxwbGFpbiBBLiBNYXN fZmrmDAEeJGkaXKVxT69g e9IVi6OiHP5UBFg2epHdn nwazF3qTFWfxvIcKWpmoG EqN5piPrZiQURECWaSFHs gVEhPUkFDSUMgRVBJRFVS QUwgTUFTUywgRVhDSVNJT 606AUCqcoELYcn9DRGuKE BmDsy1BMnHW7sTOmUOIEA VC7FKQVjiGuFRQ7UsBOzO UEhPUFJPTElGRVJBVElWR QXJZy7ZNWMVDbhnNXBbUE orbVZlOT8UWnFoq4J7OXK sNsxiLWMbSSs2NXQ4IYM4 CanbVE7tv19rCVAkEBKlI fOeQyP2sxWSXtZjHX2POc xwbGFpblxlcGljTmVzdER kJlXocDqfqH37KQZroMZs CEB5NR5tDVAorbgmFTPcB HFoYFH7MJlksX83wVZtYR KyOVTsuOBugX7PDCRfCQN 5XIploX58yXVzTJ2IBCMq NEU6NNFkmDZwWYM2VT1td Q0KfQ== MICROSCOPIC DESCRIPTION w8fmkFCzSPRlkMU5HhFnP (test code = 3371) EXvn8zlh3RvwHWhlWXfHS wpsVBoscJzlh49vVT9oN9 0LS7jUECiGnW7ORLzzuM0 Gqw0HTAeESYurEMnG035q 2uqx4mxbpErsGV5uNpkKH PwihapGmE7NTutCKYtyks xCFt2JUpsSJEdqQR8NTGs ePNpB5JjYQPjYB7zrpi8E BZ0KQheAFEmPpZ4CFUwhF SfPBOwsForAPksf963FJY 3HvShCSHongEjjUevzC9n NsDmRCWDYNZTSjQGSXL7n C6vfsMvOhX4pJDhzWcprq FjaWMgZXBpZHVyYWwgbWF imnKbzZ78FLUjeOMhiUea CTOtnBqcpfSdXzBgF9G4y OGyCWCviBHbG9KtkJnshM c5IMV7rCCfV1GyIZf3lDU zq3qiZBFarZzeVDygvEsw i7VhatCaM2d2r1LcKRSfY ICixLvnKSXpBP1zuympAA c4PYxtcoXuwJnsjrFqgTF sZWFyIGNvbnRvdXJzLCBh kzTjajOysML4sPEaXPFkz t8vNNOkfyE3lKJzAHEpd3 4xgsYadLAasXNlWZ1elBv sOSTpz3SbRVVcSAQ3hVCz YABbzZ0uZM77BWJhT3wul m12icKvr56ktQzumPxokX isW0d7OFEkPNAwDTCwlpU xloFoGaGyeR7jVRFtvXDm biRaDN17NSxfhgnjFoTsy IDgi9Zxi8B4yCRdROMyv7 V6YP0hTS3ymV1coLwzfX0 jaGVtaWNhbCBzdHVkaWVz PQWbRGBlDTGft2ZaYSHbU KBjVYKcmUpfoOrpZSR4lB ipZItcaJzbzAcgwUGrH4O bwKLsz6OpgG9tjH9jlWDx bcExSp7rJRQYXCEbBLIKG CJnXZYRWoRpSJC3wz9zDo BhbmQgZGlmZnVzZSksIFB BWDUgKHZhcmlhYmxlIGlu sEEmv0s9qSowXQXaUQCQR 4i0DYGwusFgjaGvYWBtqq NnSo3kTWEAGyqcF3E8WRM MPGPgRHWXqVQgeH3aWNMl IENEMzQsIFRkVCwgQUxLL PCWFWQnEQrdY7JcLQsuY4 ZxSFsyFZAyH6XjJtweU5H VIF77MJNUL0HwKVRmLPAo MAFCIKUPRwZPHJ5fGBGSI 2iiUZEhnyJzD59IVsRdnh Fog5Eiv3i2RLJpw2g3jEH cVQzsBBYaiiNyXDE4wKyq BOhlB3BgrGMxOLESNtXaM L8lqkHbm8EfwSjhtNdyU5 p2NJKmtXMmv6hzoWE6kGS yIGRlbmRyaXRpYyBtZXNo i58vr6FlTXxmSQO7ZCQsn 8nvSZJfySvwsSThoz2ixV RoerP1dPOuIWjjXHP2ALr hkQlclrT2sNTabXFjD7Xg VEL1hCbiPNlpT5WmbEOgQ GFwcHJveGltYXRlbHkgOD IbRN1qY7DuVSVnTIWBKUA zrFuszDhwW4d1TLFjrM5a SX13ZHMgS2zhvn70gaUim 23kzNijQQGyeR2krH1rsK Bnyk2oPNYZOtGkulHtpYZ 6APj8OcYfTEm8BMYxh97v aPKlzCKdUGvsVc9wMBItf JVtp54izAUzbC20mx9nhV A8f2VbRN8xY3PjEWN4yET vRBUih5aewOFdjHGwANLt ELVtxuKjxy3uLFOpcWTTX T0CIU5tuYdzmkgctOmfBD Lbq3FmzGOxj6hxfVVuZED yZXBvcnRlZCBpbiBhIHNl cGFyYXRlIGFkZGVuZHVtL lxwYXJ9 SPECIAL STUDIES (test i7cqtGPgUVAioFK3HtQfO code = 3376) HDls6hhv3HpbHRtpVCuFO iueUVnqrTkbd90xPR5wW1 1FT3vOTLqTsX4WODeffP0 Qqm4JOTyJSIbgEGxY027X TJiXPXvcVbeexn1tI04ER PxpG1uoGIiXPhwfgTwIPj bkdFpfgJjJan8JRT5kRty FSVotwxqByQ5DRzzQMMpe msqBTl1SJfnNGTfbXA9KI GrfKXwK2IdLNPbKE4gqdv 7PBM6TCrdOPTlYwR8NULj rSNrZETwcSjvGXpma837C KS3XlKdIXYfwrBfeHhcnJ 5cZjFcZnMyMlxjZjEgVGh dROxhhJKfqHErlHV3zP9m ON7hWTXzmCLlE0LfKMMkb tRghKFuPGU8xRVgiSHzUG 9yPKulsWOne4oov9RpN5b arKtdcXT4SP9lWWRgDOYk KKoda0JcdI9kBbpgHQHfy QOtGDPqk1NzKEEvHwQIIU MsIENEMjAsIENENDUsIEN ENDMsIFBBWDUsIENEMTUs WBJKEoAiIKIoGV1FAMTpL JYIIWu6ZIMYK9TcJHZrLC OWT8hdYXBFZLcnV9LpWSk gQkNMNiwgQkNMMiwgTVVN ZSJnOULVLYFdCRgbGRR5S GPYfLZsuR5eNQPmOCYQUp QsIFRkVCwgQUxLLCBDRDE wJGtsE3XeVFqxQNEbpTBy YHIlhxZfs9wiH2udJUSuR RV9UO6llhWeLfMhKC6scO 51l6Hji32mj88vtF9cnXV ctgPtF74soTZnjYBdy7Ra XVWyjhIxhUB6XTRkKXbbt ugbi4o7zUQ2yYGpdFOhdV S9nPGacQVkJRZDiDFiOWV gx638ju7fYALchWTfboZy gD4yCNljltmeiXLxSG8oE EDrSOCgNXYjFK83nxFaRP 7rmKInj5ahtvAyjGHhr4W bnIT7SEIixAFwhgcoRq9o FH74EVEuBQgqwE5nnDNqb tMaGN7eIT7bT7I7aCDoFW UpvxKmn6qvFUylIS2yLZC haWxhYmxlIGFyZSBldmFs tIC7CEZmuPSsXANaxGTbZ PmztIJgp4ciz1YlK6dhyT shpKO3RJGgF0dzuHDofHG 2NPP8bM8wAYfoleMkLRQc p7HwCPBmIYQjNdJ2nP0sH GA2OzZKjQwbVZA6QeB1ZV ksITRmUK7sXGixKIegO4Z ebRRuPFTHIBAaf4frX2zt ESHgd2OfrT7sgCN4qRAmP ZIngUA9DSVyTDG5YAlyuS VkIGFuZCBpdHMgcGVyZm9 htKUqC0OkI0hdqjZxgDEd kXW3oLFzXUkdghWqAOZ3M LOjeA8kXS5yQNPxbVNfOK 5vdCBiZWVuIGNsZWFyZWQ ez3YsTPNqje54ZTDeUaha cCbhTJAkQs8xPl2tPYXgl hImYHW0SqTZGA0dkywrdV RioVophn3uVFtcUFNFOAE wJZSoEJC1EGArnT1vBXY7 eLF2DIS2K8fzN7dsEEGmf bUrXQ2hOSHepPJvvzGaEZ tmNV9shLZzRFIkx7Sdhne tLFWwSDE0PYB6OFuiJUMk NNJcHi1nFAFpiN9eT6CwY JI3roJkc2LkVpNRaQJiyW 98pRWwbs74ENAwDYOaK5M yZGVkIGFzIGludmVzdGln XSBlr28ehUXwfxXwi6Mzt kGtHWVzI2elIKMkzPWibP Rod3JuzT3nnGMaknLlZLZ 5pEFrEUDqiE3jMVEhjPmf UUMrjU5uP2TkSUxjUc4jM QRlpgqjVM0rqs53FD4opj BgPY6qklOaCM35utDhZxG lYDl3KYmEVMfLYLl7LSAu dvPxqAFfjSSsFUIorV5rj GUjBo1pdVJhcQkcAKDiiY XiZCyqnAqsR1tgakppCVq ftSGwn0WnxL2wiTW4JXR8 nS4cTcwmERU9 Gross assessment was [facility] performed at (test code [facility], = 2777) Department of Pathology, [address] [place] [id number], Technical component was [facility] performed at (test code [facility], = 2778) Department of Pathology, [address] [place] [id number], Professional component [facility] was performed at ([facility], code = 2779) Department of Pathology, [address] [place] [id number], [id number] 14:05:09 Test Item Value Reference Range Interpretation Comments Case Report (test code = Surgical Pathology 104) Report Case: [id number] Authorizing Provider: Som Kamara III, MD Collected: 01/07/2023 03:09 PM Ordering Location: [address] Received: 01/07/2023 03:14 PM Service Pathologist: Kim Morel MD Specimens: A) - Mass, thoracic epidural mass B) - Mass, thoracic epidural mass ADDENDUM (test code = [id number] 3381) ToshhWnLFQobJTrE6Xane qtSSreDU4dPC3xaKwwjST lcRFpLEZrDfKhe9azw424 tOTix5akLTMTrzwnyDv0e JddH24hv7T7MgrnR69slD CuPFO3QNQlOXRtiPLtWFQ nXTG1ANYygOMmS1wyLVTh LU5evhwePMxfZOjlPYEwu WV9SMBcmEMgJ5IkRKLnXK mjUFApwqt4CfCyGc2urNB yeTcyMFxwYXJkXHBsYWlu CFMcWxZhYjIfk45iRHGwl bSsDEOxwnL9sJydYS3dur Chp1X3FVAik4FswFGrs2L mBLEssNGsw86rwOOcsY17 wg2snYM1r3NuZU3nJ0XeY DBiRPZaptHbmEM8WTl1Ni OxJFf1JTZbf04ng7R1UPk mmv4sqFAdVHGrogJIVxEE IGluIHNpdHUgaHlicmlka XphdGlvbiBpcyBuZWdhdG h7NMZki9MgDESNErGsUbL qhWSka7Xnx9c9AGAxn4r1 oLUvHNzwNFDbu8Pml7S9S E4wXEL5jNCuF4OmJCGbtC xzLlxwYXJccGFyIEFkZGl 6mK2vTZmfxN9mqU0apBhd zK6vpDTnfRWczTTqvPSkd FVxWTGhFHSuRRWln8KwKY JyKEPkOlDeH1Vku05sB3S rLGHcKRXlcV0xhL6sOTLh SKigqaKqkMUyuoPjs6Xux Ib7HBWnz5MgG6FrQIohM6 TTRdlmZv9DJHpmPZ7oFVW ENzlhLCBhbmQgbmVnYXRp lvNcFf8fRW1TJUgkC8KnP VbqUV1dOSBTKsUcHQLvuh jePYCqVZKswgAjf1B8COF rCrnxMhLcV7Ubm31nE6Hf NIHFV3mvq8B6ZIzwohMnf 3IgQkNMNiwgTVlDLCBhbm ZfRjAANaIgPYQdweZlZ5D iYP04RFSnKLVrNXlvjUy9 LQ8lkOTjZAUAVHPqsaVsb nJhbmdlbWVudDpcdGFiIE 6bjSWIBRBsE2OuNXjwKWF tJLsQIJFyNLQwFV2tTU2x ypA9VREaQqACa5ViPNS8X ZM8AXXiwJWfXU1NNhXbcG EkhRPmZ6E6dJ7yMzp4ZTB fXl21IWEsfCLepRCvJUDt srHSB9bvAJBeKXRrQF9iD B8bkjY0CFEkRsUXo0YaGK F6IXX3GRHaePSjIPEnBXe lQGx7CXYjZax0VBXcjFVl QW5lsOSUDICyQ8EiMMkfK XJccGFyIFRoZSBvdmVyYW znGAUkDYY4wgRaOYTlXWF px8G7TYQyffQeq6CexcUb q9y7wRFjabCltZZbwERnk CBieSBkaWZmdXNlIGxhcm pjDSOmR4RmiXQglN2etX8 vXVMyWKlEV1jwIzLXuRKc hB9qsTqncI6bmLNgUzSfs RIxMOWdEN1kUQRszI0cS1 FsIHByZXNlbnRhdGlvbiB bveTsJ47sJ8JkskpeKkTn v9PsuDIupYAdzRHrMVTjS YK8yO3szHSsCMHwWMNERD NlbGwgbHltcGhvbWEgKFB NQkwpLiBBZGRpdGlvbmFs FMoyaFRmj6qjp1GyZ5fig InjWRizw3P0SGiwmhHel3 LhpBYna5FoigIdi7JrC1y ovZNlRVasrLuqWD9XRYPs bmNsdWRpbmcgTUFMLCBDR TVaBQLjlyIgW8VrZtkqtK SyBa7xcVThZGW1HO1ef9u mio1nyMNrHGIdvyMqymBi HIMqppV1IKxqa5T5ZGJqM GmluzWwEWZzFTXaaE6pyB DaHU4daUQtTCHzGsC3yYZ kF0OmpfLufMTecH7xa7ma a0WrZ0icBX7uAOFbDEZlF RYyqzVxbaxlJX7xuIYpc4 SgUjYdliSzioNqPS49YSB rbxRkb0BuuJgmBVDslQke VCRjWADdn41gFEAmfU5zB 7DcPVMusoDwfJM1mQ4wIH lzIHJlcXVpcmVkLiBUaXN zdWUgaXMgYXZhaWxhYmxl RTIgdkAml2fjX6TjAJEip 9R8EKdxzhucyQZpW7mrcb psFMnanGXlexKcO6F0IMJ uXHBhcn0= DIAGNOSIS (test code = h8ofmFXlIAYdo5msJIEcp 3220) GFuZzEwMzNcZnRuYmpcdW MxIHtccnRmMVxlcGljOTY pMwynbpEkSAVmhUFmF9Tt pzroVHgkRV0wKX7dvQpmc AKvzCKrYMQbIzYem0aow1 97yBBza7zmXIDPtwnnkPi 9aSxoN37ra7Q8BwfrL97q yLHsITW2EHHbHXCrhOZwU LJzHYE4ACRztTBdZ3rmUJ ZqFT8damlcHSppDDykYXC woFO2SKQonVCcF3LsNTPr NXqjVDPrsfl9QzIfAf6dd GVyeTcyMFxwYXJkXHBsYW fdVBHyBfMkRW1fVKjEJbL DSUMgRVBJRFVSQUwgTUFT UywgQklPUFNZOlxwYXIgL SBMQVJHRSBCIENFTEwgTF mPCBjRXKFxGLQMWGABB87 HHD8NTQxpAAJgfQSmYAGn PIQJU3EBM9kXGCEUCUZEE nKLDU8FK4MhCMDRC9YSVW vgxPBaVA1wVADUW8PyGbY LNMmEADuZPGPTY88OSMPS AQKNIS2BODZORP2ZDHSiO KdXNu8ETSUAWYrOEBFtH5 9NTUVOVClccGFyfXtccnR vDUxbl9NvHCigUCGbOC0r sWzpERJsVB1jIZNtN1ycn I9hkmd3HrMsKUHvLgL5ZT PbqcA1Hle3MKNpVIilb4a nd1RrDPFfFBc8xDvaQsTr DXZea5xeksTbVpUnUDOmO NUpFEObuCXnA835e1wld5 ihpoEgkRK0WSJwVBR8CUg vdiZmoyE4CXybfRYnFkF5 IDtccmVkMFxncmVlbjBcY uv1XKOhC159OPH0xYrvs3 huXDF5AEPeRMQzEcLcAt5 ppBEpF673VDAxHOQDAFYq fRe1IHPvyyYriaBhiEJVw 307U885p1clLFXjfrYxfO xXwgxfv9rcK589GPVnjKU ydzEyMjQwXHBhcGVyaDE1 CJXmSO1yumxcUGvtVEbbY RDskmK5DICyrSPeL0MpPE MbIT1yoyzmDOD9RLgyMCD uHCV5DjEaWQEwh7Lsgyv7 FqTzip6kqx57CCP3m8Wwx JudMHX9HHB8IiXgJh3dlS LnMZAuOZ5yNeBphOOpGYD yhm89uFjeIYvqGIJ8QUMn rcTwj9Ixc1ufNoVpifNrB 0gdA4EyWIXqVXUlAYAxJs LznvNcg9Yvo5KjuTXnrWe 1j8fxIQGlXQFpuLplr9cf YPE8GFUssMNyY5kngJ0hC NKoOG4jtbqes8hoHNvwCH ajNYQgdJA7cwF8PYQksDZ aN0ZsnI3gVCRfDVhuAQUe mvs7FyBoNe4xvUHltOehB FxzYmtwYWdlXHBnbmNvbn RccGduZGVjXHBsYWluXHB sYWluXGYwXGZzMjRccWxc bGFuZzEwMzNcaGljaFxmM OgxFlDjHOFtMIqiL2meHz FfTcPsYqc2SKCreWMiDII bKpm9BBWcjUVbTYJSfZmt jN4vZBVdzXiceO4puPF1O QUdpbUzjPTDyG2gINGOrM 0pAoX1FGIoErc1ADT1IpD ccGFyfX0= COMMENT (test code = i0ofrPGcDQEmpLA0JwRsZ 3359) HSxv1zjr0LoeTDsqYCzJD nfvCCxmtRqgc83mCF2nM4 7PF3fZVEjCaH0QWVrniJ3 Lgy7PHFwQBGvqGHiU659h 5pft5uzfcMsbPW1uNniAK OshdcrJzW5VOlcBAIjukv aFVm0QQjgOOPucIO9VQEv xXVmX8IoLPNrCX3mdfb8L AI1PYeeWLKcFlA8NRMjpS XsDBDsyKhnVMvma652KBR 1FuArMWRcmoVnySuqaV4t YqCpLRGMMTD3aD6qdtPpd I97YRnvxr7ljgRiFG36XB V6WMQzvOUlH3QmTgYpBZn nUWh0oJCcj27tDC2sXLxn im9avvAbXKEknmIoduJix UMie6G7fGNdFWUzu76psE O8ATYda3n3eGKkHZomD9f paBDyxAjwNEUzxMd2MQSf cmCtdVLiTOKzfe11aF4ly UFyrHH8JPSgDgikT4kqOi cpLiBUaGUgZGlmZmVyZW5 4hSCaMJFsQTboc7AvwtBl bmNsdWRlcyBkaWZmdXNlI BszniyiPCZwZ2BrpWIjdW 9wcV9oEAxrpDjkpG7zvaL kZSBCIGNlbGwgbHltcGhv bWEsIGFzIHdlbGwgYXMgc RJoiKNqrJQyWZZhDWB1oY 5hbCBsYXJnZSBCIGNlbGw gbHltcGhvbWEuIENvcnJl bOF9gN4vTGsorClghJNvX GluZyBhZGRpdGlvbmFsIG vdoOCxn8iwy3HsC7tieAo pNXgzj6J1AKllgnreVAVt i6UafHRpchPSMIBCXIH2s KWwYOTjAt2bUMSuj3KnIy ciRQ0GQvjuZxVGKtkcYN9 pN22zPOBARVXlqhIdznNz tabgjDWccPHagzOxJUU8j WIhWVNlc0ChMuKgoIviyw BpbnRlcnByZXRhdGlvbiB moqIjt1RdO3qjx5JoKity ECItq32cNLSGXJYegH7vu 4s7hZTfzTKcjDHqssU1dK 7fWAzxHKSxo81giZAfFFd mCz7oKRsom1VrmgNfxOe6 dqM8vHlpAOWlDIXqwZ5vq GWwVQcdTREee3CsUBDqqB GpYAFsOV6tsL4uKGNmhux uPPPeXPMklHtyiH4hxuyn jzEytOi2JH0mACt5fHEob 5Smc4xzJlQfNWPmjzXzer MavJewv22gh8YsRLJtaY8 ydGVkIHRvIERyLiBDLiBL oM4nCXoGNNQiddWxOo2jP i5sNGXzAUI5CYOgPaFVBp DKfX0wRoUifOe0djIoabA kuMnnID3zZOQcCp2tASLi BUp1aI4iBXwtuG5njI7fd SphaE0aeIOieOXqmYVxkj CsX1b9f8ybicR0uVNsc4F 3JQcqtqM3KQRqFYJiy1K1 p6RrOKC3gFTwOUScuz0pJ JMwDPmvMV99HWOaEBQJxe 8xSFfneI7dZMXqgbZeKn0 wQn1wNWMlWDQ7HPG9TrLs AX8sCSWuooebYEAnTZ23p mIwDZQtuvOyXD58NHmrL0 6vs9XpnIJ7lX7vVsHXgpS eEUtxVATdu9EpSKYydBZm mxWjWZ9aEDMxGGdwwZR7S BBaJMXsQDAhiLCsV3XrJW RlnkBbH33qK6IfSLxceSz gdGhlIGludGVycHJldGF0 qC7dRkvtZMN9 CPT Code(s) (test code = i4gelTNiAHQftYF1DmQrD 3357) WTel2nrh2CswYNmqDYsXC owpSDciwEjeb65bSO4wD3 1FD5cBQYyFlP2UFMeiyF9 Zzh1NIDlGXKovHDcF213b 6unp8wlnzIeqVO0zWjhHX LdmxecNxK2WQmxHPDqwsr hINs3HXvjEKHrzAX5XCBu wOJrT3UjFSDiVT3jzev9T NF1RZjmJBDeAmQ4IMWypG BiANAwyKlkJYnuv960GOO 8NqWnLVXawuOzvTsjiS5s NeWiFOX6JFUcWTpqFXmfZ hM5PHu9HmOkCbD5VVR3FY E1QPD2SmM8EFX0VEeoXCr zNjVccGFyfQ== CLINICAL HISTORY (test k2xjoUCaENZtqNR0ElUnL code = 3356) QSnd7vwf1ZtbVOnbHUtXT jceSAwddSuhs83aVD7cJ0 0GQ9fJKBoGoW8CQYuhcV7 Iwr4IDWrEOBgiTGxI547t 4grs5bltcAfbWZ4VXGmUC ZvU3ImLE0xBGOsuCPwP58 ibRGpIBS8YSTeHGBeeCRy NUJtRCM1CCJmdBScP2rbU KAqTU9quocrPUooRQcmXX XqhCX8KSWywCAmN7CzVJY pIFbwUNJigdm7NhChHf3s dGVyeTcyMFxwYXJkXHBsY WluXGZzMjAgMzQteWVhci 8krKRyxABoCFR1uOHnNXY tWBB9OAtsx1Yhymnwd0Hy o1QrEUxnXVDjQHU6jKKgr KXuKCXoV0OlKUitIbZbZB Yln0WvEUXzCEBxh9BhYeq aHWUrexQhQAopy2LpACD6 cMFizIi4jUWcFYS4hOPtD PVbkpYoE25ikOLir3Asx3 5zNKCcGTXhAHZ3VEZrrSz dqN6enAGqMmVuE2G3abO4 OMBZIBmyAAgdtmlmf8i1b IBmFERxSAAfjS9cVTXoZG BhbnRlcmlvciBtZWRpYXN 3eL12hScvk8OfVUWuzUYp VBhhpR8eqZhkJPL6YHKzw M4uZGMkWSJuCDAts5Ygna TsTEMvJ0cdfeZuEIKfFLC 6ZOG3IRUbIZrpIe0ldGFk SNPrUCZixFZcgxJbDPY9f NZai9FkvzAvVLGcdqTzIQ AvqmVjYGztbkxxRq92jMO chLT3jsEhUV7eu6UmZ35r V8UiczfsSxBpn4NkrFX3u 2VtaWEvbHltcGhvbWEuXH Bhcn0= SPECIMEN SOURCE (test r4ipoDNmYYNyzKD1VwXqC code = 3377) ZKzu5ahk6QloOYrkSKxMB gfrMMynmGdlg02hWU7uZ4 1CM0tMOVwGqZ8IRCzcuY0 Ugv0DOJgGPMuqLHmO087i 9zgo4vzrwHhxWZ0cAwpYN VynqssCcD7KAomYZYfxop rMIk0ACalSQFigWO9FUIj mNWxR9OyWPXyHT7hrca5Y XW0QJqeJRSmLzT9TQWsvW HoTNEenUtxDWpdi663TIF 8BrKnDAOdoxMveGomzT0m QaEyXOPZTFCUYrERjX9rT WNpYyBlcGlkdXJhbCBtYX NzXHBhcn0= GROSS DESCRIPTION (test s6ajhZElMPQsbWRQQZQaO code = [id number]) 1orfgImEQOoqUZxF1Xxcc xpSSmgFU0cOG0imEqwrFU ubFHfPZ4QGEOpCrYmGZLx cGVydzEyMjQwXHBhcGVya CV4PMUxPH3fkelhNEpeSK lcZUYjrfK1ZSVivLLrO1Q eIVPpHK4lqjepPLV8CFaj jA0euaGRKemzAu3maSRpp HtcZjFcZmNoYXJzZXQwXG UnbLirKHGdIWw1hH5MNoa yMLY1UVMQCqybEQBnIE1O l6uqNRWwbAOdBDU7YVokz FXyOXEdLDQmBDt3BULwLR wqiRDvGM7caBlyUiuceDu ul4UlsJWeFBfkVEQzWOIa ZCyaALEgLK3RAxNhWEycI Xm7RYDhDOp4IWt9QV6LFq NqNJLtYiR1OfQ7BJMjEWq 4NEubKM6NJFD8Pwq7BYO8 DgX4TSw1EcIlRVYoSzQdD GYgQXJpYWwgXFxmbCBcXG 5jfVxwbGFpbiBBLiBNYXN zBsvnIQJvYRssRPSwU76g s4SAh2SdEW9TUVm6nhMmd ulmqW3fAOUkkfXxDSozfO CwF1fgPnTsNSFIJGJleXT yVFRosxKdbWEqa4VfbR87 apXxtFNiOXCqnkNsH62nr 7EqdQK6xO9tRKSeXUFklQ UoVGXmSMKtITHkLE51Z0R gbmFtZSwgbWVkaWNhbCBy ZWNvcmQgbnVtYmVyLCBhb mQgZGVzaWduYXRlZCBhcy AidGhvcmFjaWMgZXBpZHV yYWwgbWFzcyIgaXMgYSAy LjAgeCAxLjUgeCAwLjggY 33qbSMrSTzvfNkhhrR1zk Y1AK4maMhthoE5wIEieMH zs2HzF6hvHW3sZJICm8Bo aCBwcmVwcyBhcmUgcHJlc KWkEUTpPI6sISNbfB9qtY taxjPnyeRiCD73DJYvvaS lxW54DCR4yH9tLZKnrTBp rzKbW1o0h2hoffN1uJJgM VFjPAQ1fFFfmlEkAVgzUI MmHVgzDSX8Br9okNWuVID lbnRpcmVseSBpbiBjYXNz MJC9ITAMT2CfZTSwFCJYT c5NXlklaUMaxovkmKaiTl OjfHLpVtJhoWtdqS24SLI kpINcFKP8XJ5vGRQbgfsk BJQyIIKhMFQ0KKbyaU57c HHbWHFbVPHsaTCqyL3Qi2 yuNQCjgYUbKEF9SUlvvPX vUZJqMHZeOShsPdMyJ6LF ZVHjXTR0OTA5MqVtDCv4O VqtJ7UKGGSvYRObNGWjGB Z4SeQ4DYp0OZUTYz2gZwr 4MAIeMXm4LHJ0SMjbLLyx dCAyIFxcZiBBcmlhbCBcX CSxGPwceaO0OKLpRFPfqG tuoG6rBk2cIKKxqb3reEJ tTM6VXBJrkUAWAKF6OA4x MSANClxsdHJwYXJcbGluM LwqcX7qVS6SLFd3vhAvTR BrLaVoThMpKUg0KDJbhA8 mSm3hqEEwkA1fNWgvDzHg ZFUmgND1wZIhhPvlES5xt MOxMQ0qKVmfDFqzfpBua3 DwDF68cRQtextgTLIvnEq uYXRlZCBhcyAidGhvcmFj aWMgZXBpZHVyYWwgbWFzc yIgaXMgYSAzLjAgeCAyLj AacYAeYvSyO23kaNCbIKf jcOezjvR8ymI0IA1ieTok mrPcP1buBYvvcQRai7Ztc Metm6WpNjQjWPyhWWTisV keBJS9CU5zZUTeTNXfvCX ngL4lhpIrkjWbqILagNL9 IYJtuE0kA7Yte1C1oWKfY AVfGOMcch00G8ngXeLxTN lxiGcxmG6aOHTsU46lp2V Ei8AeYTRyFJypd8plbDga a6IxxAQmCJlyUTQwnDLfY GqwhP8jWfNfc5xeiFp0ZK rvjdS0FYQofz5ICpasmS3 dXtAqb8nphBc2YATBBeea spE3a2afcCpqo8TuoZTlX H0NCn0= INTRAOPERATIVE y9jfdVUqSYWycPHOMLEaQ CONSULTATION (test code 1iyiyBtWRTzeSCgN4Etcb = [id number]) wxPLezOV7wAU9mpLtkmXH xbVDxFZ1SHPGlHeAiCKGy cGVydzEyMjQwXHBhcGVya MD3VDDvCM1vanuqQVccWB jkVJVvxtR2VATttMYwD5X wVFZnAK3eeuqtBRD8GOxb nQ3ujaUIIomyJz0siHLtr HtcZjFcZmNoYXJzZXQwXG CrqDsqPZJnPFf2eR0RMsg sEIU0MZMIHtruDMQzFM1X p3qdPYGafNXxJMR5IZlxo TDqZMTjXUOlNEo3MUPgHA bhjBWjAY5jqYleWgzbuSr ik4ZxkBZuYBzqQXLdEIIs PVapZKVmAT9XWeXzMVtbD Mm2LODpTZk3CKv8YT7ADj CiHFEsEqM8MpO3SUTaOTv 2XXkxBA4LYRX1CTD9KZa0 GkU8KMi8WsYwCOHlDeLrB GYgQXJpYWwgXFxmbCBcXG 5jfVxwbGFpbiBBLiBNYXN qSfzlMPPxZFsrOHEwR65f l1RBr7JgOP7QXQw4hhOoy dpfkP2kBSSurqYuFWkdxQ IaY0ssIrMeJELSNHvGDBq gVEhPUkFDSUMgRVBJRFVS QUwgTUFTUywgRVhDSVNJT 276WSKtvqAOFhm7OZKdMC WdWlw6NPyZR5pPJxMXQJL GD3KUWXjyPtAXA3GxHYpF UEhPUFJPTElGRVJBVElWR QGVEq1ILJAMInvpZLSnMM bfaRKwUC0NOyJrn0X3NTD sZliaCLXfEVn4QDQ3THH5 HapgGU9sy63mHODjAARbD qSvMhI4xiAFXdYoAG9IGr xwbGFpblxlcGljTmVzdER mGfJjuTyawO14EKXmfXUx GNI0OK4xYEAcvgyfCCZzJ FEoMRS1DEspgK51sJCrYG GcKZPkqSGehC2IEAEgPFC 8EMdnaK66uWBgNL1NXRQy JNJ7REEvxJDtVPA2LR4hi Q0KfQ== MICROSCOPIC DESCRIPTION j6bigQCmHHZezJF0UpDgS (test code = 3371) MHcn3ots3PmjKOjiHGpXB ilcRUhubMsks98qVH7uT7 8HC3pBVMvRdJ8IVMfinW8 Gyw2XEDkRPImgMQoX801z 8ncs8jtcvUfpYM1gWfiLY ShnwxsLsR6RYhuOAYuzkh iTXt3DNyeVKHzkYW9KWWw fPJhK0UmPYTuBV9tznr0B QC3BMhfQNViSkO7MHUheZ VuVMBzlBfjTXfhb054PSC 9DeJtVVNgyrEakQmiyP7t UwOnHDJFMFSBLrJXEQR7t X9rqiKoSrN3bWObmCsfnp FjaWMgZXBpZHVyYWwgbWF xkxRksU05WPOljVBgkJie SETngCxgngKrXgJfT7D2h XWsHXCliJRuJ1CsjYipoX w6OSV5cDRiG4GiXQi0sCN ck6tlOSAorHnaIVxvyJjo j8QrixRsB7m2x4WsGOWqC QRcvXwkAQVhEB6snstfRX p8RShvqkPmpFwfmuQmcGU sZWFyIGNvbnRvdXJzLCBh tlDlyaLrfOD1dUGqJPNzt o8fSLFcrpF8mCWjAZDvw3 6xymDozNOaySLaML6jtYw mFMYfn3IlAVQuKTH4kXQx CFKohF1tNH53BNPcI0eqh r17uwQhw31eyJfwkDtzyQ qjD3q9IZUrFCRsAEJcybD opsXiIbAcqQ7zYXGkxDHp zqGgRD23IEelduqbSlNhf NIlj0Tlz0Z5hHUpTECqf8 G1VX5vWG4shW2nrRppzP5 jaGVtaWNhbCBzdHVkaWVz OJMwHICzLGZwc6MfOVCpE JPfZFRneZwiwJrpAWX9iC zsZPgkaAmpuHeauFGeV1R bbRKhm3IhtH8fpU5erRBa zpLoLe3gYJCUVZQdKJDRN YEoAMZJGgOzKYH7tq1wOr BhbmQgZGlmZnVzZSksIFB BWDUgKHZhcmlhYmxlIGlu nNTzx0j1bXabMZMuCBFEE 3d7RGBhunCzcoStZECljp EbAw7iBZFAMwgrL3F4ZSA JUCShFOBJwZVxiF1nYWGn IENEMzQsIFRkVCwgQUxLL WUYZUYoECbnK5AhMBfeH2 LlEOhxRHXfH8CxIfmqO8N PGA66NNMBT7NjAFKjDXYi ONPFQHOAIlQWFI5lXVZYT 1ukUWOfebIyW75KJnSjtp Dcj0Ikl2b0CXWdb4t1wHL bQCbfBBWvlqEkXUN9iQms ABvgM0FkzIIsUMLYZwIjI K4nlzXii4MadAdvoTuvT1 a3VMKlkBQks3fyvOH3gPS yIGRlbmRyaXRpYyBtZXNo j13kt4CcVKhhDCU6UWFhu 8qyUNXdfSozvZLdgy8gcX NkyvV2fVNbDRzoZZH6BKa jmCmbbaE3qJHdnZXdO8Aj WEL3uUonYRieK0EbzMAsP GFwcHJveGltYXRlbHkgOD BrOY0tQ9NfZGVmIQKJDCR fxMxeuBpsZ2n0QIFcmD7t AY37ODXfH9snkj57lmVsv 05bxOjpFPAdvX1yaQ3uwE Zope2sZHTLDrItohZvaYG 7ZBt6VwInXCg9QNVkq72h xWRbjWEzVOplFw7yGBJta GDxa47dxBPvgD02wc8haS K9y0XbHM5bM4CyOTG1pBB kYMZxa5zsqPQrhNOzQOPg FKBjtuXqbz0tLOVwiEOPU J9PVW3vsHjfuusduFcqMJ Elh4TtkGZcw0uuzVBcFSP yZXBvcnRlZCBpbiBhIHNl cGFyYXRlIGFkZGVuZHVtL lxwYXJ9 SPECIAL STUDIES (test f0kycVRtYQMvjUA8NiBwO code = 3376) FBct1viq2JeiAAuuPGcAN pvsSPktpLynl97dFQ6yK6 3LE5oOESrCgZ3QRZfpcS1 Vsw1QTRjOCVseVHhL453L BDeRVVpsWijdac2zM42JF GwnR5dtHSiNMkpghNtCCy tqaYhavLsCvw2ZVK3jCuj AUPpfsfsKzE6ZSfcLIImv gijKYa0FOguTNNigTF7QJ ZcgBUhT4BpRAYuRR6mcpa 4HCA5NIarNORlHjH3XCYj tWRnBPYlxCecTLdhd783O ST8AwXoXUAvqgGroIsdfL 5cZjFcZnMyMlxjZjEgVGh uPZsluJVxoUJenHM1pL9b TB4lGPCkoZRaS1AqVPAgp lFnmPYjIOI4yXSyrZPpWD 2jXQlyiZUsa2tmk6DoO1t qsTrhsHT8OJ5nHAFoXTJf AXjbv6LerL5dVsoaRKFtm UTkTUXhe4PxOSLzPqJJRX MsIENEMjAsIENENDUsIEN ENDMsIFBBWDUsIENEMTUs GOSSTkMmOTJuWE9AKXZkD YJWXIb3FZKLL5OtJGMwEA HAJ5pnEFMYZOrtG6KuTDw gQkNMNiwgQkNMMiwgTVVN FITrARUXHKNpBEquASC9R OBFxSCuzL6pUZXhPHUPZa QsIFRkVCwgQUxLLCBDRDE nYGfkC4YjBHarXZKpfPBk CCMxmeZfa1llP0dgICDgR TO0YR4npwSzZvXrAY9ccM 62b9Pyo35xy86gbD3nlBS oueJsJ63aeMExwXQtc8Eu DGNbmgZhiTX4IAEaSVkfg vofr1y4zWU7iQCbgROwqP E9bXNjhENgASHBlBAyGPW av035ie1cYXFfoPWnuuQs nN1cMMqizzvkfOMcYR8pY MChISQiUZRqPF50bzUoFQ 3ydPRqh9plogXenFGof4B mrQT9WFLwcUInlqvcUc1h KY12ZHZpGIktgX3gxHVht sFwEF5lED4vS8U1eMSwAX PvywEup4jkJPffMM4fOBW haWxhYmxlIGFyZSBldmFs zAL6NTOdtOAzCLPquMOvS BkviIDgi6sql8OfD6rsvE qamOT7OWGpS9xmxMSfxWX 6QYH8sX2mGXkxqzWzZQQz n0RiQUSoXTKvTzK8wA3qR RE9UkRMtRfuHWK5WsF8AV qyTEOdXQ2xPSvuQKzgX8G pmOMrGFWNIZJqd9cvE1qi CUJdt9WugP8whWJ4uVTcT HMnpVF6WXJmMMI5EEmjyG VkIGFuZCBpdHMgcGVyZm9 vrFAtU1FwN3ciinRkvASy kFA3jGMaLMxwksMzINN4D GEvrS1xEJ4qHKJavYLdCY 5vdCBiZWVuIGNsZWFyZWQ vb9SeDLJqpc34EUHyXtox oZkqRXVnNw8dHg9lATSay wZpSAE9LiZICZ9wyxepqL WwbYmssp5xDAzrWMHOZFY oOYFpNCS0UAIkgN9oIID3 gSB2AXS4K2nhN8hzWXSoc cIkTD6bQOMjhIKsmfHpUY ujHG8ybJAyZAQxz7Iqaky sHRLgEWR8YQC5QOjaNHCz AGCdPs1zLXSycC7yB9QyB NG7kvRnz7EqRlTCvVFndA 55dRRvii97SAGtYKSeS2W yZGVkIGFzIGludmVzdGln PNOta36kiMFojwUpa7Zwa aBxMVYlE8yvCKHqgOFasA Vnd0PnlZ9jiZYdhhEvBXH 5rZNnHEChrL3rBALpbPgf TOXebV2gC0LrNQgxXr0lD HElitioFS3wwo70HF0gju UnIR3grdIcGM31orMtZtU aKUd6OJuHRXjUFQk4XBPo elGhcTYmdXVnKZSztG9bq GWfZr8frJQdqObcXOXzvX NgDIclfEjdM5xrequlBDl bnXEzz3OkrN1piET6BUS6 sO6zYhztBDN6 Gross assessment was [facility] performed at ([facility], = 2777) Department of Pathology, [address] [place] [address], Technical component was [facility] performed at ([facility], = 4499) Department of Pathology, [address] [place] [id number], Professional component [facility] was performed at ([facility], code = 2773) Department of Pathology, [address] [place] [id number], [id number] 14:05:09 Test Item Value Reference Range Interpretation Comments Case Report (test code = Surgical Pathology 104) Report Case: [id number] Authorizing Provider: Som Kamara III, MD Collected: 01/07/2023 03:09 PM Ordering Location: [address] Received: 01/07/2023 03:14 PM Service Pathologist: Kim Morel MD Specimens: A) - Mass, thoracic epidural mass B) - Mass, thoracic epidural mass ADDENDUM (test code = [id number] 3381) SnuneDwAWFxuKPiC1Omfc hnYPjxAZ8yPK5nbPvawXE dnQBcQSHwEfEsd2bpx826 lTWlm5jgXPXVwzkyyMl1a YkmB02ak7E0AmbaN43apW ViVJC9ZCCcHLVvdGHgWYL tZPK9STUrxARmV5oxQBZv WF3qhmlgUUczLHisJYWua HX2RTOoxEOsA7EmDISgNY deGHNgwon9WgLhCd3zsAP yeTcyMFxwYXJkXHBsYWlu CREzFnDzVwMqf36nKLHze bNlUBIbdgA8fZlpEZ6vtt Ahi6S9ZTBmd6ByrRYbd9C jNJQiwIEgc66xsGRupZ00 lt2qrRF7h3UfVS7hR9MqE DSuBKHrwzXypPA2OQg3Qu VnYZe3KFIvp65tj7W7NQs dpm4kwAYlMSQgonSMLwVQ IGluIHNpdHUgaHlicmlka XphdGlvbiBpcyBuZWdhdG i1GFIwy8WnZSCBQhSyMiA fvJSww0Wqg9t6MHKqr1e8 gBKiKNzhFOKgk0Peu5U9A Y1lZIJ5uPStP6EaCRKrnS xzLlxwYXJccGFyIEFkZGl 1eM3rJJrkxK6ddL3rhMnd zU4riMNhuXDhzERnpQJsq SFcYOCvAQOnSEFaz5NcRR PlDOZkVqHtE2Sod08bJ6U aBBBnRZKweR6ywO4mDSQx TDuscnMhaMUshtSgg8Skl Tf7EUDyh3DpR2UgCWkzD9 NUOrbeRl6NDLpgET3tRSJ ENzlhLCBhbmQgbmVnYXRp esHvDu6dSB4SXBraV0EjR ShaDE6hWLNFJdRbFEFohk rtXPRcIWHfdkOzb4K5YBK oYjsdXtOeH3Iul01vR3Or LWQCN6cmp9O4CKcgxiZzp 3IgQkNMNiwgTVlDLCBhbm VrOzZFMrPvWRWvzhUwX9R mUH60SNKtWMYfVSsmkZj1 KO2csFPvBJUBVUWgcaYwj nJhbmdlbWVudDpcdGFiIE 1jnOYLYVLoU1HkPHrsBIR vQWwDBKKeZKBaZL8tOO4a mgN4APHxItYSa6MvRXE3D UH2GOIidUKuNX1NPmJokV EubIYwG8K7wR5aQir6VWD sLi67ZTLotUZnzABhKZFq qaDRH3jiRBUyINVcUQ7xG W0prhI6YROfYdOEr4NiGL E1NBB8LYJsaACoOTDnPSe pKUt3UJJoGgq7GRBjgOCn JN5bqPGYMNIhV0TkRIzpD XJccGFyIFRoZSBvdmVyYW ppQUPwXIO8nhWlPPHdBAP jt4T1PQNtfqOuz4LsnxWo m1n6tYKndnEclUAmtGLvo CBieSBkaWZmdXNlIGxhcm cfFBDnY5FdhVJouR6zrY2 uFOIgVBtZQ9mlOxZBeCPk yB4ivYmjsW3zfAFzUoNhg YSiFILiYD2yHWTwmR9bL6 FsIHByZXNlbnRhdGlvbiB vbnCrG77zQ6GvxdikNrKz e6CpbKFkoWUtqQFlZHHuE WU9dD3hmJBfBHNrLLHPQD NlbGwgbHltcGhvbWEgKFB NQkwpLiBBZGRpdGlvbmFs OOcjbUNix7etf2YlR5hcm XnkZXisc3M6ZRuayeFgg8 QbaEJpn2NdbhFdg9XxK9h dcVMbGIykuWmkWX3DEASt bmNsdWRpbmcgTUFMLCBDR UXsAHAqqjJsA9XqTfedbQ GkJz0vjVSeAMM4UF3cf5c utr8duTCwNBScjyUujkWc ZVXemuN2RBzln0T9WJUoM NnfouBrLZOwMYSnbL5tfQ NlAA7crHAyECAdRtO2bNJ cT6MnbaTnbZBuxH5qs5pb f5WmR4grEK5fRKWsERJxF KQiuvXqvkgrUA7pnJBkc1 CaJxBvfoKclvCiSJ29YHZ glsDsv6PoaLdcLEFijTgz XGTyLFKhw63dOUOigW5hF 7YjDWAfjrKqkAS1nZ8zFX lzIHJlcXVpcmVkLiBUaXN zdWUgaXMgYXZhaWxhYmxl KFKzcbPsa8fhS8AwVUUdm 1E8PHfokjenqXCaS5ldyk ovZXvevDKyfjLqS5T3JQD uXHBhcn0= DIAGNOSIS (test code = h6ackHQbUGYdk1mxJJRlp 3220) GFuZzEwMzNcZnRuYmpcdW MxIHtccnRmMVxlcGljOTY nEhpnrgAlECWteXVxV3Km xkbhOEliLO3qAW6wlNebu IWhaZTlQQWlMuJuh6jom3 81dYUjp9dyAULWjzmnkYw 7pUhoS76uq0L0IkipB69s wDUwYAD7NURqFDWeoYCsY MHiTWQ2FLNcjVCiN1xsWK MdWZ2ecrlmWJuiAVgzGEQ mrQV4QDOeqYGmV5TuDYEq TLbuBJIolsp6AsNsVj6cr GVyeTcyMFxwYXJkXHBsYW vfRCLxYnPsRH0kUNxPFlV DSUMgRVBJRFVSQUwgTUFT UywgQklPUFNZOlxwYXIgL SBMQVJHRSBCIENFTEwgTF cROUlZYWIxPCKVPENQB18 TMN5HOZopMOKdyCFfRZId LULVJ8UYZ6zESHIRPBIZF cQLNF1JI2HcZLXAX7MHLO kehPRaFZ3iLQMVM9MhGjR VRQfLWKjTISGGM02WLDWZ NREKUJ6XBJPNMH0GXLQeK DbJJw6JWEDIXLfRVLHkO5 9NTUVOVClccGFyfXtccnR xTEdfq8DiGVusTENxTQ8s jFriQRXaCG0cMRErX1aad S1mhyp0PpGrJCMyAdS9RQ UwmqX4Zso3UCAnJWsfk3f fq2HvOYPtXYn4zSvnWuIq XGSfd9qbhgYuVpOwAJYsI KYkIRFgxDOqD330b5nad2 gaphXdtWJ9XBXbRUL8YPj iwcNcofF6BCssnMYdFfF8 IDtccmVkMFxncmVlbjBcY cx3XFWiT299YCP5pDppp0 ocKJR7ZUYvYNZeAhPbVv0 hkSXiV892WGTlDSXSVVVy nJx4JNTbvkMnfrQcrXTZj 916Z079h7ejTODafwHepU mKvjshh5ilO368UWWyhZV ydzEyMjQwXHBhcGVyaDE1 IKXaLI4aapmaOUmyWYsbY PMvabD2KDPhyGNfO9TqWL DoUW7gdmjcRHO0GRpmYSN bCJT5LoDgQGScz6Lfvgj0 UySwrf2vpd17DIZ4a6Wvu MioLGP2HTM2LfBuIr3ylH FiAUEqLJ3cZuSdvDJpFSU oll73kVciVIedEHT5UDAi wuUcc7Aaj2hxGyFwseXeL 3wfX7MtOFDbNNFhELEiTj OikyQeq2Nwg7MjmVKvnVl 2w3qvKNAqHCYfwFlko7el GQD9AAIumFRaN4fcuE2bM VHdAN4rrumbz5tsGGkuOK viUSPvkAD1edZ9EFUmaLZ uV0ZeoA5oSESxJJkdEVUg yrl7UkUcRy5ghQXycMgqT FxzYmtwYWdlXHBnbmNvbn RccGduZGVjXHBsYWluXHB sYWluXGYwXGZzMjRccWxc bGFuZzEwMzNcaGljaFxmM PqxFyQuZRPzZCyuS6yrCj LnOxFaJeu7SMOrqBZjXSU gFmy6TRWleYZaMPCJlYsb pJ3dJGJwwClfcB7leNV2E DJtncBzrDWVjK5gSGKNjA 3oQyE8LOIaUla9ASI9MnS ccGFyfX0= COMMENT (test code = w7dhsNOcLNOyaML1ZsUxS 3359) EOaf8rid4HqfTJgeOUeZF kcoPAbiaBfov11zMM0pE5 1LD5rNQVyItP2QRIuqkR3 Sxm1SGCrVHXyyLMxH527b 6blu2zmckSerHW3yEswAR DbvtfvOoZ7HOctQQVpgjm fWId3KWtdZTHbqAK9PATh lWRlD2GsZKYvCX1oqjy5R HE6SIvrCTGlEeE3BXBmeD BkMBAgqRhmNNrne592RBE 5ZzUiBNNrodZobLzhqI1v FiIfBTNCXWD9aV6zidWkd O11NLnaqf3igyQeRY69IA O7PLHyvMSbK7NjMyOhORa cJSl2rNSav73kEB3sPJwr er0xqaYuLOWcilZnkfOrz WGou5A5dVRlFGHpe65cwQ K4RXQsb5z0rJEyCJgwQ1p fiGIunVssVCDkzPz8RUJj msVhnHSqAZOzfd43mA2jl RZxvXE9XSEuLcqrP3sdWq cpLiBUaGUgZGlmZmVyZW5 8kGLrSRMfCSwcz5HrayWh bmNsdWRlcyBkaWZmdXNlI FyluueyAFEwW3PjyKDjhI 8boH7cNNbpfMufoQ9byuB kZSBCIGNlbGwgbHltcGhv bWEsIGFzIHdlbGwgYXMgc QPfjDAkmFSzTYAjWAW0wP 5hbCBsYXJnZSBCIGNlbGw gbHltcGhvbWEuIENvcnJl wKK2iL6oLDaxpZejnAZoV GluZyBhZGRpdGlvbmFsIG ebyRDwp7kom9RxZ0zigUb zRVrza3Y7ONrhadggUQYy n2RycVHvqcQJRWSMIJF7q AUnELZhZa0iDQBbd5TqBh iqOV7QWakgVjGDRwduOU5 dJ81iBCNVFEPvivWfnvDb hsgmrOXntIOytjCkIBH0k JIqQWNfz6GdEjCfiAvfuc BpbnRlcnByZXRhdGlvbiB abeNtq4TgV3jhw7ZtJrun PLZry94rPCTLFXFpqJ3xg 5u5mUGxqUUlaESaomY0gX 6fPMdtUOImd81szJMeTMq xTu7wHEesf2DnrpRwjIi0 zuO0hUzkZDJeYPYxbG8sp ELzHFogVKRrs4NrUGCgsS KaVQCpQW8mvZ7xXRVnhjr fIYUtPEVhqZkzpO0kmoae qvCenUt0UQ9yYRn4yYMsu 1Hrq8zzAyQrBYYhfuOukx EduQigr21ly5DxIIGmqY1 ydGVkIHRvIERyLiBDLiBL gU6vRWiYKAMgndRrYz8uC b2lRFIcOJN9LLVcNrNKFb ZIjA8mSiJbcCz8cnUxkhU vaZrcGU7oWOEwTo9nRXNq SUh5vM1cANswuT1weM4ku MaitK3vzQPwgKRyyBRoro ZvA5s5w5whwqJ2gMFex6G 7VGtjgwU5ITCvNOQaj9W7 p0LoJXF7pCLjWMEtdb7iQ LJzANyaFL25CFHgCORQja 5pWUwstQ3cUZJfgfZlFf6 pHv4yMIFhWIH0BNY1NyMi GH5eMJEvwmdbIXPlQB08f sPaRKMnikCdDH81RNjhK8 2vp6XudWX8qG0nRfSQefW jAJwuBKTja7CwYELylNOr rmRbMT8uWRZrDFxadTR2P JTfUKEtHJWohNKeX9JyQI TricQpP33jL9PxEAxneYn gdGhlIGludGVycHJldGF0 xX5oWvstRJW5 CPT Code(s) (test code = q8svjMOcAQWoxRE3YyTlR 3357) EOuw6bgq6ImaMHajKJjFQ oilUEaavWqre65gWZ4fC6 3BR2xKFQcEwU4AWHfttG2 Lle3RLTlGKXaiUSiP502c 0xnw7kgsgXwmZV2dDrgPS AywxmmLbZ0MBluURAxkex qZYf0BQioKSLrlPP1QXOx fMNsV9HrZEPwVN1pfqu7J AY8XVytNFRlRmQ4WMQbfS ZzCSYtoOzuWYgok961YVC 6FhUxTRPaeeIbaOutiZ1j RxInUBN6LSYpMVrvDAgnR uX6XFx5UpOrUtG9GOO3PV F7RXY1GoQ8JRA8MKecHGb zNjVccGFyfQ== CLINICAL HISTORY (test y2xmxKAtJYZvhYC4EsUmM code = 3356) ZIsf4wfc6RscKLehJTmER ktgWBjrmJlvn26fOD3aP9 4IP4yCLSeOaK2AIBqzwA9 Prf8OBHtACYvmBJqA787g 9ksa7czfiJoeAF2IVLvMP GcR8MjNM8dNUTsqSIgZ17 vrDDgJII5RPAzUSSdtZRu HTGnXRR3GUCiiAXoB0hsS BYwIN8qjbecMYuwFQgkJU SibBJ7KLDtoRZhO8IlEWZ hZLpnDBHdhic3BdZaMn2c dGVyeTcyMFxwYXJkXHBsY WluXGZzMjAgMzQteWVhci 4nuTFvgVQeNQO2eXKmXQY xBDJ7WUyql6Hpdwhmg5Ie z4EaZMexWIPyJFM6pNRsk FGjLRXnP2YlZMfgNoVyQP Kxl8DbUMUqKVOwh1MuLib zYXPfvcSaRGlct1RiZFJ8 kUIhjWy8oJNoMHX6sDBeA WEtrsAjE29jjZQau7Avs4 7dSJDbQZNbSCF2EAZqdEa ocS3fzJDkGuOsZ4Z7rmQ4 SPREUHojXSnlqigmp8q5z RPbPWPuBUMwoK2aOBYyOU BhbnRlcmlvciBtZWRpYXN 9xZ44hOdse0QgTITzvTWc FSvcrV0stOpfXQG9ZKGjd G3kUOUyZRTeTLVpl6Cscs YjTNIyN2ogfeLdOAZhBSB 3UJS8PYMfEYrkEn9ujYMm RHJlDKWcqSOadxTnUVW9u HJmc4SphbTcSQFixwIzFW VrgtNdMKtnqobmTs63dIY esWJ5siAlOJ3sf0AbO87q U9PxlzbcXnYrn4PphDI2p 2VtaWEvbHltcGhvbWEuXH Bhcn0= SPECIMEN SOURCE (test f9godVYvMEMbdMA3GaJrU code = 3377) JCnl6zpo8QduZWbqHMwHZ wdxVGpstRcrz38gIC8zK2 4XH0tNGMfLiM8AUFpoiM2 Mwf3OFVpUGPkdKMjW668f 2ocf0ukamIvaGT5hYquWN NctwlgXrT8HZybOZFhecl qBGg6RSqnCPNabOT1KCVt gAPyD9HqGJFcUK2vmuz1J PI5MIuwCQKoFzA2RDJvgH CjNTFzkMqdZKgvw902BVG 1EzPtNLJnoxXsiPccqZ5r TyDmRASIIQIIJpOVoY9oB WNpYyBlcGlkdXJhbCBtYX NzXHBhcn0= GROSS DESCRIPTION (test b3bdgUMlASHckRHCRKLcC code = [id number]) 4kmhxGmGYPutLBqG2Uohm mqYWavYS1xAG2ofTkefIA doWHwGJ9TWMXrHlUkYHCt cGVydzEyMjQwXHBhcGVya RC0SZTpQC4birhnTFckOT dvMELvclG7LTLldHTjE7C hHVJcTK3vfmmiQKK6PBqn qY3ovbWVPnkjTo9tsUPlj HtcZjFcZmNoYXJzZXQwXG ZgzKiqEMQpXQp1iE2BRfh zDBX0ELHEZivvJDXjHP4R y0kwHWZeoEItXRU7VBkpx WEiKTLdESNuLNd6QCTkBB nzwGGeGV4haKzfAwfyxPt hs5KdfAKbFGmeKVCsNPYr FPhiDOFiLW7IUfVxOZyxA Wr8TJFrNOz6KRv0FV3YSw LcGMUuXrM4KiK7OLHvNXb 4TBwdXV8XZVV7Hzn4KOZ6 PaD7IDa1WrXyUYHdQyHyW GYgQXJpYWwgXFxmbCBcXG 5jfVxwbGFpbiBBLiBNYXN dIxgjDJUxSSfoNKNlB49a h9IFl6AoZB7NYEz6aeZrf zpgaH1lRWIjhwBtLNocoH LrZ4raFoTvLFGISYTfqMX fLIVzrsVyyQAgg8OtkS81 ztVsxTHxVAHquzTmC98an 5FdxIS1wY5gISRjOUSihT HaDTPxAAHeKMEpXI34W7W gbmFtZSwgbWVkaWNhbCBy ZWNvcmQgbnVtYmVyLCBhb mQgZGVzaWduYXRlZCBhcy AidGhvcmFjaWMgZXBpZHV yYWwgbWFzcyIgaXMgYSAy LjAgeCAxLjUgeCAwLjggY 87npWExIOeqkWokmxB6wr S8YE0crEqdeoF7tAIxhPU oc6EuF3qxBD1oAIOPh7Ik aCBwcmVwcyBhcmUgcHJlc WSjJVKlGZ2tXPTusA9ptQ cxvgKpzwDgZJ42DQVpuqQ fpD74RVE2sF1uFUZmjUMd ilQxZ1c3w9yrgsL8aXOoB SWmRBO9eGRirjRcRZkeIL CsNJmcWRL4Vu9bjSHoDJQ lbnRpcmVseSBpbiBjYXNz TVA8URCIV4LeGCIeMMZSW g0SXknqyCFivcdyyGcaVy AetQAeFzXxiHfpmS30GMY vaMVbRMS6VM3uTIMcmckx HVQvBGSqLBG5QGnnbA14r QPsRJXlWDImjLKnwN2Id0 itHYVuxMHjIYP8LZgxvMT lFHNwZQCvUWxlRfCoW4XV VSAfVZF7QLI7IqPlYRn8K SbhN7PGYHVyYJTfTGBkFB O2NkH6IKh9XQIAEg4iZjm 6UGStEDg0BYC5DKhtJCvp dCAyIFxcZiBBcmlhbCBcX VHnEIgyibA9BCJuHAKezT xitE6lWw5xHYZkls0coAK hPQ3GFDQicAIEEDW9ZI9t MSANClxsdHJwYXJcbGluM XuvmO1pVI9DHGm3dzOkVO WzTtQpOpSeYWf9IGRliV0 tDz2reHTckX0pCVpjAtKb ZVUvjJS4lYYqyBzcVR7it MTyOQ6qAHxiXLewxdWbu7 XwIQ24nLQgaqmeBORqdYe uYXRlZCBhcyAidGhvcmFj aWMgZXBpZHVyYWwgbWFzc yIgaXMgYSAzLjAgeCAyLj JdyGTcHyGqG44xtYSoSDi nnJkicyB1pbN6NR0leUvd plViP9ggGAbhwRFgq4Qkb Dgwl0PqYjLbIWwfWSKxeD pwHJF0WR7nBHYxJHFwuQD piM1oyrCkwxBxlXSphIQ0 ZBUaiJ8bY7Spn7M6jKZsU OKcRCTlqz54F7biLjTpEF rynArytH1xQTYgR27om9W Ti8YcJGUdGVzzm9jytWab n3MkiICvRUfaWCNlhHLvK ZofqX9uEiTfr9wasVg1WX umslG7AGTfzy6GVewehJ9 yWqNkn6zolFi6XKUAFtio ajL5w4xkcTgiu6SkkJExR H0NCn0= INTRAOPERATIVE s1skxBWuRMBnuEFDXOFgG CONSULTATION (test code 0xxxgLbVNAmzELkR3Kjnn = [id number]) wfZFyfNX2qAH6xwQqcnAZ giOJeGO9JICRcPbOvOPSx cGVydzEyMjQwXHBhcGVya HR1UXTgMK5hseyrWCzpKY fsSRMvkfZ8NNNypRKnJ7H wSXUqVS1rrkseGMU0YJth sM4nvgIWNidfHw2cqLNtu HtcZjFcZmNoYXJzZXQwXG QvlCmbAFXqVTv9zE8NUiu vLGW7KRFFTuwbMSRxUT2O s3cjCQPikPFhOMD4YAceg EGaUPGgAZKyOTw2ERGkZN wmtUNiXT9kfCkoYxytyZy wp4KghGByTAyaARKoUQHn FSwmQODnVD4IIlBtOGkjE Bs2WNKkPPg4AQe6HI1DVj QqHLXvZbA1LyD8DCAmWWq 9DQhwAK6BHUK1UIF2RQg2 VlX4ITc6IcGzPPHzGjMzK GYgQXJpYWwgXFxmbCBcXG 5jfVxwbGFpbiBBLiBNYXN uFtfeOWKlAIyxBMIjT87c k7MIo0YhHK6DAZy7riLga fatlG9zJKMzafLnGVwunD LdI8icIvKxDJGSAYxFEKs gVEhPUkFDSUMgRVBJRFVS QUwgTUFTUywgRVhDSVNJT 468VHCvtdAWCkr9YBJaWS TcRcn5NRlTQ3oJMtDRWMR XH1BKOCbjOyFPA3PjCIhH UEhPUFJPTElGRVJBVElWR EONIq1ZXGIJEtjpCUDyFK bpuRIgOL1CPeNqj2M9JEU tKhraWIItIZg9CLE9QZL8 UqoxNQ9ql49aWQGbJWQjD jEuIxK3lmKYFbHlPH3WJr xwbGFpblxlcGljTmVzdER oVeCadXuliH57JJLbjWSp AYA3YL6iSURtftnmRTPcF HWoKKF6NFjxvA05dTYyXH BdPPJuiOCycE1JDOBjICK 4BPuypX31pAWtYZ8WVKYt LAF2APIrjCEnIXP9AV3me Q0KfQ== MICROSCOPIC DESCRIPTION y8qskDSaVNAxuYP8KiNiS (test code = 3371) OBie5upe5GesGEsmNFbTR ipoDGrbuOnmf86eAJ3sL0 8MX9uYOCmQkL7RAMmxgS0 Sjz5AAZeYOUgzTTmL354v 4pjz2tzibRbnJL4wVeaZO OqiipaGiK7WFwnCGKemfz gKSz2WYlnKBSleNX3KKJx oZOdR1DkFMHaXC1khvu2V LX1YZbjNBLiHcX5ZPEwlN VtNJNuqYhaOCgam650FVF 0BfGtVMCtgrJstZuhgL7n TkYoSBLRPRKVKuKDDQO1x P3dmqMmZpL4eJYenNkfjw FjaWMgZXBpZHVyYWwgbWF tzkOlsC64GFYrsXWtdEtr YAXrlYwbycRkPwAzF8U1o BXwPRWnwANvC9MgjPyyyQ j2UML9dJDuK0NoVZn5eUX xs4yhLZBuxRujVAnnbSky t3EtouCkX1g9p6HwZZYkY TNuzOmcZCLfOB6mcjsvLH x6KRanehFghQmcntNieWJ sZWFyIGNvbnRvdXJzLCBh vdEfnkRthUH0zXCqNKZqn o6fSDHgalX8kNCmAJHjv5 3vkrNocMGcaXKvZF9vdJh sCHKmo8DhHOYtJHX0rYYd JUReeZ6vSQ53ACXwR3tuv x98cfDnf53dzZcztAaqlC swH5j9WIAmRUPvAGZzgtD umvWgStCyyA1cPFDbdFSk nvBhJE92QVmglolhGsJvj FFca1Jtp9W3wBRmGGHxv4 U6BE7qMN4fcL0ctBmggO9 jaGVtaWNhbCBzdHVkaWVz IZMsEWEdUAFsq1TbOUWjJ GZiYGUorQljjStjUEC0mA pwIZuszDcbdRrgeNIvE0N mdHTbb7OlcI6tfP8scGOc ymSbSm7jZIDTGGJsEFYHE YTuWKSIHhDgXRW5tl1dHm BhbmQgZGlmZnVzZSksIFB BWDUgKHZhcmlhYmxlIGlu jHTvy8h1xLmlQIAdJKNJP 3x6BUYqlaKkuwWcXAWoit AoPq9pTIJOWeilX1R9NOE BFUGmIFQNqLYqkL1lENAg IENEMzQsIFRkVCwgQUxLL IUXPMThHUzfN9IpRRhpF4 RxJWqyFYXfT1OiAjexZ2A UCC85PKZIH0UsVIVrJQLm LUGSJZDFKwTZOC2gPWIZE 4otYRIpxzHuN47GXpDkhl Uxo0Lsf4g2BFQso6n8jBT kSGgtBXZtqzLpHTJ9vYav SIovR4TqkNMaTXSBAgJxN U0sowYen4FqqHyasStoO1 z2WXOkdROue6pmjSR6tZX yIGRlbmRyaXRpYyBtZXNo h25dh3ReYWweUWI0ARXxl 4wyJXTmtNeayAGlar5acF ZlmlW5iZRoEZhiYBR7EGb iuMmojpU8hUEdmVWiC9Nf PSZ0sHdaTShtF2DsbALsS GFwcHJveGltYXRlbHkgOD XoRX9jO6DwPDToXYATDEM llZiomCifV9e4CEJuhE4v KP65NZZdA2vqwh44ngEyi 89rgPyePLFwlT3hgL5djV Mxgx5kZCIENfYnhxSzmNF 5UFe2FqKfUTs4YDCab17m zINcwPSwYLwoLp8kQLCff OOqn22yqCGqeF24as8xyR M4l5TgTB6lW7BjIGW1eRX dSWCth5qifBYzwUVmEDOc ABUukiJmtn8nRRHhjETNP U0WZT6qcUwvwxukvRrhNC Wyx8FjwARlr4ydjBEvYUR yZXBvcnRlZCBpbiBhIHNl cGFyYXRlIGFkZGVuZHVtL lxwYXJ9 SPECIAL STUDIES (test e5rmtOQjEXXhyER3DzHoC code = 3376) VTap7iux1AblMDlzVHtWB zwjEFuloNaes25cEU9pO1 0BD1bPGLtVaR6YQOxqkD4 Gql4TFJyAPUkwPQxC144B ZGhVHIbrOjkbya7qX50DG XhcK8qlBDtLOvjmnOpLSi jlvWuolHxSzb7OAD7bBst BGPrrgyhHyS2LHkuUHLjn inpSFe5ZXseWQVbkAE1XQ YalNPtW1ZvWWXzXU8ibii 1CLY6XVizCIZhXvT5YVQp oSLcYOJehFljHOwfa188W QJ3OfTlYWYtnqNgwSyqgB 5cZjFcZnMyMlxjZjEgVGh vRCaysSQtwRRxnBM5wA7s AP4jKIFziKWmZ6PuXMPxp xUmgXEkIDX4vSDsiWGoHE 3eWPueiOIsy8gfz4MiN7d aoRtijZF2CE6aGPVuDYYu IVriy3BhyS1jHaheIRTje WImZVKeo4QcKCRsQnTPYP MsIENEMjAsIENENDUsIEN ENDMsIFBBWDUsIENEMTUs EDIHDfFtPUUhUG0ERTYcR EFBLKv7ZOPMC4VvRXGvGY LXM3lqOOYLBVuhC1HoPRi gQkNMNiwgQkNMMiwgTVVN GXOmNCCPMBUaZBdyZXN0O XQEiWHcoO0kFZEnRDIRMi QsIFRkVCwgQUxLLCBDRDE kQCpzM7FbASndEALawFDr LBFcwuKbq4rcV7irESBhC VL5JQ9zutEsOgVcZU0lzL 16y7Jin21sw14grR0duYZ vrcMdU20jhKCflRIgj8Tz ZJBxsmAnvKX4ZXLlLNdnd smax3r6iVN3pVOnqDGstA P4pVKasKRnYFGSkNGxSKA ge777xe3vBBBopHGofsPq jJ0tRRgxntbvqALcZG7nL HBoXFOgLHDzBM98oqSzZP 1ooHYxy0exrsYyePPov9C gfTY6CIDslKKhixtnSv7b AV36POMcGZynvO0rzDBst mEpKA8xIO0vE3M1uVIvSI ZygqPkx3zbQJsfBD5fILT haWxhYmxlIGFyZSBldmFs qNH4KMGvcIChKGVcrXJsH MjbdRJww5cfd6DoB5ucxN kgoKC0ZUSsC9rpoUMezBV 1EAE0vE3jRYkluzTvZLVt z8PpAAAdTBQqCrP6bL2kP FA9SoAGcIcfRNP9YwX5DS dzSHEfNJ8wYGjmZJraY6Y eeTMfSCXKREZhd8chL6pp OJYzb1PjvV8ngEP0nUJmK APqbGI7ZTUcOVF4RDlfiE VkIGFuZCBpdHMgcGVyZm9 daLUcP5OqB5wlamLpiTCk oHV6xQXtAJfhoqCkFES6O TAgfG3tMA1qZJTqeUDaWH 5vdCBiZWVuIGNsZWFyZWQ cn0DrIXVpzt24JUBbEuaw rZpzHFAwUk7mHo3wZJFri mHpCOU1DiORZB4tsfsybR DzvSdzgu3mVAmfNWFMRCF xELQkSDB9OEOneA9mZQP0 lRZ6BKR3E3kzE3jyOKYoq aJsBY0fNMEbmAYgnwLeVW lkRX5baHYjTQZsv7Wydxq tYCJfYFK0GMO4SZqrUMDi YDYzXg1jWASvpZ3pJ8LnP WP7svJxc3ZwNtWBiDLrpF 02rQEyie69VVMvTGOhJ8A yZGVkIGFzIGludmVzdGln WVIlj40pfOTbpmGdc9Yph dAeXSJkS1rsZSAseYSehQ Dxv5GwlG9mqJQxqvLaUAU 0wMDvMERtpC2zAOMouEfi TBIkmP4mI9TrEFpuBt6oB LPgbnmySC1tju81LL3wrf DcFN8gsmWsRX39lcNjRaQ eAGe3UWuWEMfZBEn1LMEb ayZpbCMmjQGxOIFtbE0xa GSrHe9zpIGcmJpwMXTndY VoMGyayYieO3yscwfdBHu vpUMyk3HrvF9leWP1KKM9 zL4jKhrgHJC5 Gross assessment was [facility] performed at ([facility], = 2777) Department of Pathology, [address] [place] [address], Technical component was [facility] performed at ([facility], = 2778) Department of Pathology, [address] [place] [address], Professional component [facility] was performed at ([facility], code = 2779) Department of Pathology, [address] [place] [address], [facility] [id number] 14:05:09Surgical Pathology Report Case: [id number] Authorizing Provider: Som Kamara III, MD Collected: 01/07/2023 03:09 PM Ordering Location: [address] Received: 01/07/2023 03:14 PM Service Pathologist: Kim Morel MD Specimens: A) - Mass, thoracic epidural mass B) - Mass, thoracic epidural mass Reason for addendum: To report results of additional immunohistochemical and in situ hybridization studies.YENNY in situ hybridization is negative for EBV. p63 is weakly positive in a subset of atypical cells.Additional immunohistochemical studies are performed at [facility] The lymphoma cells stain positive for CD19, OCT2, BOB1, and CD79a, and negative for MAL, CD30, and CD23.As reported by [facility] FISH studies for BCL6, MYC, and BCL2 rearrangement are negative.BCL6 rearrangement: Not DetectedMYC rearrangement: Not DetectedMYC amplification: Not DetectedBCL2 rearrangement: Not Detectedt(8;14): Not DetectedThe overall features are most consistent with involvement by diffuse large B cell lymphoma (DLBCL). The morphologic features and clinical presentation are concerning forprimary mediastinal large B cell lymphoma (PMBL). Additional immunohistochemical studies for markersassociated with PMBL including MAL, CD30, and CD23, performed at [facility] are negative; however, given the limited nature of the current biopsy specimen, these findings may not be sales representative aircraft ofthe entire lesion. Clinical correlation is required. Tissue is available for molecular studies, if clinically indicated.Addendum electronically signed by Kim Morel MD on 01/23/2023 at 2:05 PMPreliminary result electronically signed by Kim Morel MD on 01/12/2023 at 4:56 PMA. THORACIC EPIDURAL MASS, BIOPSY:- LARGE B CELL LYMPHOMA (SEE COMMENT)B. THORACIC EPIDURAL MASS, BIOPSY:- LARGE B CELL LYMPHOMA, GERMINAL CENTER PHENOTYPE (SEE COMMENT) Signing Pathologist Direct Phone Line: [phone] signed by Kim Morel MD on 01/09/2023 at 4:35 PMSections show involvement by a large B cell lymphoma of germinal center phenotype, associated with a high proliferative index (approximately 80% by Ki-67). The differential diagnosis includes diffuse large B cell lymphoma, high-grade B cell lymphoma, as well as primary mediastinal large B cell lymphoma. Correlation with pending additional immunohistochemical studies, as well as FISH studies for possibleMYC, BCL2, and/or BCL6 rearrangement is required for further interpretation and subclassification. YENNY in situ hybridization is also pending. These results will be reported in a separate addendum.Preliminary result of lymphoproliferative neoplasm was reported to Dr. Jose Miguel Kamara III on 01/08/[address] Nayeli Lovelace. Results and the need for additional immunohistochemical and cytogenetic studies were discussed with Drs. Sigala and Dr. Castellanos on 01/09/2023 at 3:24 PM.Intradepartmental Consultation: Drs. Yara Ty and Nelda Bunch have seen this case and concur with the interpretation.[id number]; 56151; 65139; 41111 x 17; 73339; [id number] male with 3 day history of saddle anesthesia, ascending paresthesias of bilateral lower extremities, with cord compression T2-T5, T9 pathologic fracture; CT imaging with masses in anterior mediastinum, superficial to the sternum, the paraspinal regions, the vertebral bodies and sternum, the spinal canal, and along both pleura, most concerning for leukemia/lymphoma.A, B. Thoracic epidural massA. Mass.Received fresh for intraoperative consultation, labeled the patient's name, medical record number, and designated as "thoracic epidural mass" is a 2.0 x 1.5 x 0.8 cm patel-yellow to patel-pink tissue specimen. Touch preps are prepared and a portion is sent for flow cytometry and cytogenetics and the remainder is submitted entirely in cassette FSA1 and A2.B. Mass.Received in formalin, labeled patient's name, medical record number, designated as "thoracic epidural mass" is a 3.0 x 2.5 x 1.0 cm patel-yellow to patel-pink aggregate of tissue. The entirety of the specimen is submitted in cassettes B1 through B2.A. Mass.SPINE, THORACIC EPIDURAL MASS, EXCISION:- LESIONAL TISSUE, FA VOR LYMPHOPROLIFERATIVE PROCESS.Reported by Dr. Lovelace at 3:27 PM on 01/07/2023 to OR 11.A, B. Sections of the thoracic epidural mass show a proliferation of scattered large highly atypical lymphoid cells with scant cytoplasm, mild to markedly irregular nuclear contours, and vesicular chromatin with prominent nucleoli, associated with abundant background small lymphocytes, and areas of fine compartmentalizing fibrovascular tissue. Immunohistochemical studies are performed, the highly atypical lymphoid cells stain positive for CD43, CD45, CD20 (strong and diffuse), PAX5 (variable intensity), and BCL6, and negative for CD3, CD5, CD10, Cyclin D1, CD34, TdT, ALK, CD138, CD15, CD30, Ae1/Ae3, AMANDA-4, OCT3-4, and BHCG. MUM1, BCL2, and cMYC are weakly positive in rare atypical cells. CD21 does not highlight any follicular dendritic meshworks. Ki-67 shows a high proliferative index within the large atypical cells (approximately 80%). CD3 and CD5 highlight abundant background small T lymphocytes. YENNY in situ hybridization is pending. Additional immunohistochemical studies will also be performed at [facility] the results will be reported in a separate addendum.The interpretation of this case included theuse of immunohistochemistry or special stains.Block B2: CD3, CD20, CD45, CD43, PAX5, CD15, CD30, Ae1/Ae3, SALL4, OCT3-4, BHCG, CD5, CD10, BCL6, BCL2, MUM-1, cMYC, Ki-67, Cyclin D1, CD34, TdT, ALK, CD138, [id number] Slides Examined: In-house known positive controls were evaluated along with the test tissue. These control slides run alongside of the patients sample show appropriate staining. Internal positive and negative controls when available are evaluated Immunohistochemistry technical testing was performed at [facility], Pathology Laboratory where it was developed and its performance characteristics were determined. It has not been cleared or approved by the U.S. Food andDrug Administration. The FDA has determined that such clearance or approval is not necessary. The test is used for clinical purposes. It should not be regarded as investigational or for research. This laboratory is certified under the Clinical Laboratory Improvement Amendments of 1988 (CLIA-88) as qualified to perform high complexity clinical laboratory testing.[facility], Department of Pathology, [address] [place] [address], [facility], [address] [place] [id number], [facility], Department of Pathology, [address] [place] [address], N/S, ABDOMINAL, LIMITED 2023-01-23 10:44:00Abdomen limited area? Add comment if clarification is needed.->Liver Reason for exam:->elevated ast /alt Should this be performed at the bedside?->No [facility] 1990 Sex: MFINAL REPORT Right Upper Quadrant Ultrasound History: Abnormal liver functiontests Comparison: CT abdomen and pelvis 01/06/2023 Findings:Unremarkable echotexture and contour of liver. No hepatic mass or intrahepatic biliary dilation. The gallbladder appears contracted, without shadowing gallstones or pericholecystic fluid. No sonographic Cabrera's sign. Common bile duct measures 5.8mm. The main portal vein appears patent, with expected hepatopedal flow. The main portal vein deqfgnlc57.2mm in diameter. Pancreas not well seen due to overlying bowel gas. Right kidney demonstratesno hydronephrosis, shadowing calculus, or mass lesion. Right kidney measures 11.0 x 5.3 x 4.7cm. Impr ession:No significant sonographic findings in the right upper quadrant. Signed: Chas Zelaya [facility] Verified Date/Time: 01/23/2023 10:44:36 LACTATE DEHYDROGENASE (LDH) 2023-01-23 05:40:40 Test Item Value Reference Range Interpretation Comments LACTATE DEHYDROGENASE (BEAKER) (test 141 U/L 125-220 code = 635) [employer] Supervisor ID - [id number] 05:40:39 Test Item Value Reference Range Interpretation Comments MAGNESIUM (BEAKER) (test code = 2.0 mg/dL 1.6-2.6 627) [employer] Supervisor ID - [id number] 05:40:39 Test Item Value Reference Range Interpretation Comments PHOSPHORUS (BEAKER) (test code = 4.4 mg/dL 2.3-4.7 604) [employer] Supervisor ID - MMURIC [id number] 05:40:39 Test Item Value Reference Range Interpretation Comments URIC ACID (BEAKER) (test code = 4.6 mg/dL 2.6-7.2 773) [employer] Supervisor ID - MMGAMMA GLUTAMYL TRANSFERASE (GGT)2023-01-23 05:40:39 Test Item Value Reference Range Interpretation Comments GAMMA GLUTAMYL TRANSFERASE (BEAKER) 35 U/L 9-64 (test code = 364) [employer] Supervisor ID - MMCOMPREHENSIVE METABOLIC [id number] 05:40:38 Test Item Value Reference Range Interpretation Comments TOTAL PROTEIN 6.4 gm/dL 6.0-8.3 (BEAKER) (test code = 770) ALBUMIN (BEAKER) 3.5 g/dL 3.5-5.0 (test code = 1145) ALKALINE 77 U/L 40-150 PHOSPHATASE (BEAKER) (test code = 346) BILIRUBIN TOTAL 0.3 mg/dL 0.2-1.2 (BEAKER) (test code = 377) SODIUM (BEAKER) 139 meq/L 136-145 (test code = 381) POTASSIUM (BEAKER) 4.0 meq/L 3.5-5.1 (test code = 379) CHLORIDE (BEAKER) 106 meq/L 98-107 (test code = 382) CO2 (BEAKER) (test 25 meq/L 22-29 code = 355) BLOOD UREA 8 mg/dL 7-21 NITROGEN (BEAKER) (test code = 354) CREATININE 0.82 mg/dL 0.57-1.25 (BEAKER) (test code = 358) GLUCOSE RANDOM 94 mg/dL 70-105 (BEAKER) (test code = 652) CALCIUM (BEAKER) 9.0 mg/dL 8.4-10.2 (test code = 697) AST (SGOT) 28 U/L 5-34 (BEAKER) (test code = 353) ALT (SGPT) 79 U/L 6-55 H (BEAKER) (test code = 347) EGFR (BEAKER) 119 Interpretatio n of eGFR (test code = 1092) mL/min/1.[address] age Description sq m Result G1 Norm al or high >=90 G2 Mildly decreased 60-89 G3a Mildl y to moderately 45-5 9 G3b Moderately to s everely 30-44 G4 Severl y decreased 15-29 G5 Kidney failure <15Reported eGF R is based on the CKD-EPI 2020 equation that d oes not use a race coefficientEsti mated GFR is not as accur ate as Creatinine Yin paula in predicting glom erular filtration rate . Estimated GFR is not appl icable for dialysis patien ts [employer] Supervisor ID - MMCBC W/PLT COUNT & AUTO [id number] 04:59:17 Test Item Value Reference Range Interpretation Comments WHITE BLOOD CELL COUNT (BEAKER) 5.3 K/ L 3.5-10.5 (test code = 775) RED BLOOD CELL COUNT (BEAKER) 3.77 M/ L 4.63-6.08 L (test code = 761) HEMOGLOBIN (BEAKER) (test code = 11.8 GM/DL 13.7-17.5 L 410) HEMATOCRIT (BEAKER) (test code = 34.8 % 40.1-51.0 L 411) MEAN CORPUSCULAR VOLUME (BEAKER) 92 fL 79-92 (test code = 753) MEAN CORPUSCULAR HEMOGLOBIN 31.3 pg 25.7-32.2 (BEAKER) (test code = 751) MEAN CORPUSCULAR HEMOGLOBIN CONC 33.9 GM/DL 32.3-36.5 (BEAKER) (test code = 752) RED CELL DISTRIBUTION WIDTH 12.7 % 11.6-14.4 (BEAKER) (test code = 412) PLATELET COUNT (BEAKER) (test 274 K/CU MM 150-450 code = 756) MEAN PLATELET VOLUME (BEAKER) 9.0 fL 9.4-12.4 L (test code = 754) NUCLEATED RED BLOOD CELLS 0 /100 WBC 0-0 (BEAKER) (test code = 413) NEUTROPHILS RELATIVE PERCENT 50 % (BEAKER) (test code = 429) LYMPHOCYTES RELATIVE PERCENT 37 % (BEAKER) (test code = 430) MONOCYTES RELATIVE PERCENT 9 % (BEAKER) (test code = 431) EOSINOPHILS RELATIVE PERCENT 3 % (BEAKER) (test code = 432) BASOPHILS RELATIVE PERCENT 1 % (BEAKER) (test code = 437) NEUTROPHILS ABSOLUTE COUNT 2.62 K/ L 1.78-5.38 (BEAKER) (test code = 670) LYMPHOCYTES ABSOLUTE COUNT 1.94 K/ L 1.32-3.57 (BEAKER) (test code = 414) MONOCYTES ABSOLUTE COUNT (BEAKER) 0.48 K/ L 0.30-0.82 (test code = 415) EOSINOPHILS ABSOLUTE COUNT 0.16 K/ L 0.04-0.54 (BEAKER) (test code = 416) BASOPHILS ABSOLUTE COUNT (BEAKER) 0.03 K/ L 0.01-0.08 (test code = 417) IMMATURE GRANULOCYTES-RELATIVE 0.40 % 0.00-1.00 PERCENT (BEAKER) (test code = 2801) [id number] 17:39:29 Test Item Value Reference Range Interpretation Comments MAGNESIUM (BEAKER) (test code = 1.9 mg/dL 1.6-2.6 627) [employer] Supervisor ID - [id number] 17:39:29 Test Item Value Reference Range Interpretation Comments PHOSPHORUS (BEAKER) (test code = 2.4 mg/dL 2.3-4.7 604) [employer] Supervisor ID - BSURIC [id number] 17:39:29 Test Item Value Reference Range Interpretation Comments URIC ACID (BEAKER) (test code = 4.9 mg/dL 2.6-7.2 773) [employer] Supervisor ID - BSLACTATE DEHYDROGENASE (LDH)2023-01-22 17:39:29 Test Item Value Reference Range Interpretation Comments LACTATE DEHYDROGENASE (BEAKER) (test 152 U/L 125-220 code = 635) [employer] Supervisor ID - BSCOMPREHENSIVE METABOLIC [id number] 17:39:28 Test Item Value Reference Range Interpretation Comments TOTAL PROTEIN 6.8 gm/dL 6.0-8.3 (BEAKER) (test code = 770) ALBUMIN (BEAKER) 3.7 g/dL 3.5-5.0 (test code = 1145) ALKALINE 83 U/L 40-150 PHOSPHATASE (BEAKER) (test code = 346) BILIRUBIN TOTAL 0.3 mg/dL 0.2-1.2 (BEAKER) (test code = 377) SODIUM (BEAKER) 138 meq/L 136-145 (test code = 381) POTASSIUM (BEAKER) 3.4 meq/L 3.5-5.1 L (test code = 379) CHLORIDE (BEAKER) 105 meq/L 98-107 (test code = 382) CO2 (BEAKER) (test 23 meq/L 22-29 code = 355) BLOOD UREA 7 mg/dL 7-21 NITROGEN (BEAKER) (test code = 354) CREATININE 0.85 mg/dL 0.57-1.25 (BEAKER) (test code = 358) GLUCOSE RANDOM 156 mg/dL 70-105 H (BEAKER) (test code = 652) CALCIUM (BEAKER) 8.9 mg/dL 8.4-10.2 (test code = 697) AST (SGOT) 35 U/L 5-34 H (BEAKER) (test code = 353) ALT (SGPT) 93 U/L 6-55 H (BEAKER) (test code = 347) EGFR (BEAKER) 118 Interpretatio n of eGFR (test code = 1092) mL/min/1.[address] age Description sq m Result G1 Vickie l or high >=90 G2 Mildly decreased 60-89 G3a Mild ly to moderately 45-5 9 G3b Moderately to s everely 30-44 G4 Severl y decreased 15-29 G5 Kidney failure <15Reported eGF R is based on the CKD-EPI 2020 equation that d oes not use a race coefficientEsti mated GFR is not as accur ate as Creatinine Yin paula in predicting glom erular filtration rate . Estimated GFR is not appl icable for dialysis patien ts [employer] Supervisor ID - BSCBC W/PLT COUNT & AUTO [id number] 17:16:23 Test Item Value Reference Range Interpretation Comments WHITE BLOOD CELL COUNT (BEAKER) 5.3 K/ L 3.5-10.5 (test code = 775) RED BLOOD CELL COUNT (BEAKER) 3.88 M/ L 4.63-6.08 L (test code = 761) HEMOGLOBIN (BEAKER) (test code = 12.0 GM/DL 13.7-17.5 L 410) HEMATOCRIT (BEAKER) (test code = 35.2 % 40.1-51.0 L 411) MEAN CORPUSCULAR VOLUME (BEAKER) 91 fL 79-92 (test code = 753) MEAN CORPUSCULAR HEMOGLOBIN 30.9 pg 25.7-32.2 (BEAKER) (test code = 751) MEAN CORPUSCULAR HEMOGLOBIN CONC 34.1 GM/DL 32.3-36.5 (BEAKER) (test code = 752) RED CELL DISTRIBUTION WIDTH 12.6 % 11.6-14.4 (BEAKER) (test code = 412) PLATELET COUNT (BEAKER) (test 311 K/CU MM 150-450 code = 756) MEAN PLATELET VOLUME (BEAKER) 8.8 fL 9.4-12.4 L (test code = 754) NUCLEATED RED BLOOD CELLS 0 /100 WBC 0-0 (BEAKER) (test code = 413) NEUTROPHILS RELATIVE PERCENT 64 % (BEAKER) (test code = 429) LYMPHOCYTES RELATIVE PERCENT 26 % (BEAKER) (test code = 430) MONOCYTES RELATIVE PERCENT 6 % (BEAKER) (test code = 431) EOSINOPHILS RELATIVE PERCENT 3 % (BEAKER) (test code = 432) BASOPHILS RELATIVE PERCENT 1 % (BEAKER) (test code = 437) NEUTROPHILS ABSOLUTE COUNT 3.38 K/ L 1.78-5.38 (BEAKER) (test code = 670) LYMPHOCYTES ABSOLUTE COUNT 1.39 K/ L 1.32-3.57 (BEAKER) (test code = 414) MONOCYTES ABSOLUTE COUNT (BEAKER) 0.33 K/ L 0.30-0.82 (test code = 415) EOSINOPHILS ABSOLUTE COUNT 0.16 K/ L 0.04-0.54 (BEAKER) (test code = 416) BASOPHILS ABSOLUTE COUNT (BEAKER) 0.03 K/ L 0.01-0.08 (test code = 417) IMMATURE GRANULOCYTES-RELATIVE 0.20 % 0.00-1.00 PERCENT (BEAKER) (test code = 2801) RAD, CHEST, 1 VIEW, NON [id number] 16:20:00Reason for exam:->PICC PlacementShould this be performed at the bedside?->Yes [facility] 1990 Sex: MFINAL REPORT AP view of the chest dated 01/22/2023 CLINICAL INFORMATION: PICC Placement Comment: Heart is normal in size. Pulmonary vasculature is unremarkable. Lungs are clear. No pulmonary infiltrate or pleural effusion is present. A right PICC line is present with tip seen in the right atrium. This should be partially withdrawn approximately 3 cm. Signed: Kasey Leon [facility] Verified Date/Time: 01/22/2023 16:20:07 SARS-CoV2/RT-PCR ([facility])2023-01-22 09:21:23 Test Item Value Reference Interpretation Comments Range SARS-COV2/RT-PCR Positive Negative AA The SARS-Co V-2 (test code = target nucleic 53835-5) acids are detec denise in this specime n. The presence SARS-CoV-2 nucl eic acids cannot ru le out co-infectio ns or disease caus ed by other viral or bacterial pathogens. As w ith any molecular t est, mutations withi n the target melani ons of the Xpert Xp ress SARS-CoV-2 test could affect pr mago and/or probe binding resulti ng in failure to detect the pres ence of virus or the virus being detected less predictably. Fa lse negative result s may occur if vi chasidy is present at levels below th e analytical limi t of detection. This SARS CoV-2 test is a rapid, real-t jose luis RT-PCR test intended for th e qualitative detection of nucleic acid fr om SARS-CoV-2 in a nasopharyngeal swab specimen collec denise from individual s suspected of COVID-19 by the ir healthcare provider. Resul ts from the Xpert Xpress SARS-CoV -2 test should be correlated with the clinical histor y, epidemiological data, and other data available to the clinician evaluating the patient. Viral nucleic acid ma y persist in vivo , independent of virus viability . Detection of analyte target( s) does not imply that the correspondi ng virus(es) are infectious or a re the causative agents for clin ical symptoms. [facility]UMBA (test code = This test has been COLUMBA) authorized by FDA under an EUA for use by authorized laboratories. This test is only authorized for the duration of the declaration that circumstances exist justifying the authorization of emergency use of in vitro diagnostic tests for detection and/or diagnosis of COVID-19 under Section 564(b)(1) of the Federal Food, Drug and Cosmetic Act, 21 U.S.C. 360bbb-3(b)(1), unless the authorization is terminated or revoked sooner. Fact Sheet for Healthcare Providers: https://www.[employer]/Documents/Xp ert%20Xpress%20SAR S%20CoV-2/Fact%20S heets/302-3802%20S ARS-COV-2%20HEALTH CARE%20PROVIDERS%2 0FACT%20SHEET.pdf Fact Sheet for Healthcare Patients: https://www.[employer]/Documents/Xp ert%20Xpress%20SAR S%20CoV-2/Fact%20S heets/302-3801%20S ARS-COV-2%20PATIEN T%20FACT%20SHEET.p df Lab Interpretation Abnormal (test code = 11370-1) [facility]2023-01-22 09:21:23 Test Item Value Reference Interpretation Comments Range SARS-COV2/RT-PCR Positive Negative AA The SARS-Co V-2 (test code = target nucleic 54991-3) acids are detec denise in this specime n. The presence SARS-CoV-2 nucl eic acids cannot ru le out co-infectio ns or disease caus ed by other viral or bacterial pathogens. As w ith any molecular t est, mutations withi n the target melani ons of the Xpert Xp ress SARS-CoV-2 test could affect pr mago and/or probe binding resulti ng in failure to detect the pres ence of virus or the virus being detected less predictably. Fa lse negative result s may occur if vi chasidy is present at levels below th e analytical limi t of detection. This SARS CoV-2 test is a rapid, real-t jose luis RT-PCR test intended for th e qualitative detection of nucleic acid fr om SARS-CoV-2 in a nasopharyngeal swab specimen collec denise from individual s suspected of COVID-19 by the ir healthcare provider. Resul ts from the Xpert Xpress SARS-CoV -2 test should be correlated with the clinical histor y, epidemiological data, and other data available to the clinician evaluating the patient. Viral nucleic acid ma y persist in vivo , independent of virus viability . Detection of analyte target( s) does not imply that the correspondi ng virus(es) are infectious or a re the causative agents for clin ical symptoms. [facility]BA (test code = This test has been COLUMBA) authorized by FDA under an EUA for use by authorized laboratories. This test is only authorized for the duration of the declaration that circumstances exist justifying the authorization of emergency use of in vitro diagnostic tests for detection and/or diagnosis of COVID-19 under Section 564(b)(1) of the Federal Food, Drug and Cosmetic Act, 21 U.S.C. 360bbb-3(b)(1), unless the authorization is terminated or revoked sooner. Fact Sheet for Healthcare Providers: https://www.[employer]/Documents/Xp ert%20Xpress%20SAR S%20CoV-2/Fact%20S heets/302-3802%20S ARS-COV-2%20HEALTH CARE%20PROVIDERS%2 0FACT%20SHEET.pdf Fact Sheet for Healthcare Patients: https://www.[employer]/Documents/Xp ert%20Xpress%20SAR S%20CoV-2/Fact%20S heets/302-3801%20S ARS-COV-2%20PATIEN T%20FACT%20SHEET.p df Lab Interpretation Abnormal (test code = 01422-0) [facility]2023-01-22 09:21:23 Test Item Value Reference Interpretation Comments Range SARS-COV2/RT-PCR Positive Negative AA The SARS-Co V-2 (test code = target nucleic 00894-7) acids are detec denise in this specime n. The presence SARS-CoV-2 nucl eic acids cannot ru le out co-infectio ns or disease caus ed by other viral or bacterial pathogens. As w ith any molecular t est, mutations withi n the target melani ons of the Xpert Xp ress SARS-CoV-2 test could affect pr mago and/or probe binding resulti ng in failure to detect the pres ence of virus or the virus being detected less predictably. Fa lse negative result s may occur if vi chasidy is present at levels below th e analytical limi t of detection. This SARS CoV-2 test is a rapid, real-t jose luis RT-PCR test intended for th e qualitative detection of nucleic acid fr om SARS-CoV-2 in a nasopharyngeal swab specimen collec denise from individual s suspected of COVID-19 by the ir healthcare provider. Resul ts from the Xpert Xpress SARS-CoV -2 test should be correlated with the clinical histor y, epidemiological data, and other data available to the clinician evaluating the patient. Viral nucleic acid ma y persist in vivo , independent of virus viability . Detection of analyte target( s) does not imply that the correspondi ng virus(es) are infectious or a re the causative agents for clin ical symptoms. COLUMBA (test code = This test has been COLUMBA) authorized by FDA under an EUA for use by authorized laboratories. This test is only authorized for the duration of the declaration that circumstances exist justifying the authorization of emergency use of in vitro diagnostic tests for detection and/or diagnosis of COVID-19 under Section 564(b)(1) of the Federal Food, Drug and Cosmetic Act, 21 U.S.C. 360bbb-3(b)(1), unless the authorization is terminated or revoked sooner. Fact Sheet for Healthcare Providers: https://www.coresystems/Documents/Xp ert%20Xpress%20SAR S%20CoV-2/Fact%20S heets/302-3802%20S ARS-COV-2%20HEALTH CARE%20PROVIDERS%2 0FACT%20SHEET.pdf Fact Sheet for Healthcare Patients: https://www.coresystems/Documents/Xp ert%20Xpress%20SAR S%20CoV-2/Fact%20S heets/302-3801%20S ARS-COV-2%20PATIEN T%20FACT%20SHEET.p df Lab Interpretation Abnormal (test code = 86021-1) [facility]2023-01-22 09:21:23 Test Item Value Reference Range Interpretation Comments SARS-COV2/RT-PCR Positive Negative AA The SARS-Co V-2 target (test code = nucleic acids a re detected ) in this specime n. The presence SARS-C oV-2 nucleic acids cannot ru le out co-infections o r disease caused by other viral or bacterial patho gens. As with any molecular t est, mutations withi n the target regions of the Xpert Xpress SARS-CoV-2 test could affect primer and/or p robe binding resulting in fa ilure to detect the pres ence of virus or the virus be ing detected less predictabl y. False negative result s may occur if virus is pre sent at levels below th e analytical limit of detect ion. This SARS CoV-2 test is a rapid, real-time RT-PC R test intended for e qualitative detection of nu cleic acid from SARS-CoV-2 in a nasopharyngeal swab specimen collected from individuals suspected of CO VID-19 by [facility]. Results from e Xpert Xpress SARS-CoV -2 test should be corre lated with the clinical hi story, epidemiological data, and other data avai lable to the clinician evalu ating the patient. Viral nucleic acid may persist in vivo, independent of virus viability. Dete ction of analyte target( s) does not imply that the corresponding virus(es) are i nfectious or are the causati ve agents for clinical sympto ms. This test has been authorized by FDA under an EUA for use by authorized laboratories. This test is only authorized for the duration of the declaration that circumstances exist justifying the authorization of emergency use of in vitro diagnostic tests for detection and/or diagnosis of COVID-19 under Section 564(b)(1) of the Federal Food, Drug and Cosmetic Act, 21 U.S.C. 360bbb-3(b)(1), unless the authorization is terminated or revoked sooner. Fact Sheet for Healthcare Providers: https://www.iBox[employer] m/Documents/Xpert%20Xpress%20SARS%20CoV-2/Fact%20Sheets/302-7597%95BPLU-BYE-8%20 HEALTHCARE%20PROVIDERS%20FACT%20SHEET.pdf Fact Sheet for Healthcare Patients: https://www.[employer]/Documents/Xpert%20Xp ress%20SARS%20CoV-2/Fact%20Sheets/302-3801%30MWVU-AAU-9%20PATIENT%20FACT%20SHEET .pdfFL, FLUORO, NON-SPECIFIC, UP TO 1 [id number] 07:03:00Reason for exam:- >[facility] : 1990 Sex: MFINAL REPORT FL, FLUORO, NON-SPECIFIC, UP TO 1 HOUR CLINICAL INDICATION: thoracic laminectomy COMPARISON: None IMPRESSION:Fluoroscopic assistance is provided for thoracic laminectomy. The radiologist was not present during the procedure. Images are presented for interpretation at the completion of the procedure. Please refer to the procedure report for more details. Number of im ages obtained: One Fluoroscopy time: 1.6 seconds Signed: Bertrand Conte Verified Date/Time: 01/12/2023 07:03:12 Reading Location: [address] Reading Room POC-Glucose [id number] 11:20:27 Test Item Value Reference Range Interpretation Comments POC-Glucose Meter (test 137 mg/dL 70-110 H : TE STED AT [facility] code = 1538) [address] [facility], [address]: [employer] Supervisor/Techni ira ID = [id number] for Zhanna Herrera Lab Interpretation (test Abnormal code = 79068-5) [facility] [id number] 11:20:27 Test Item Value Reference Range Interpretation Comments POC-Glucose Meter (test 137 mg/dL 70-110 H : TE STED AT [facility] code = 1538) [address] [facility], [address]: [employer] Supervisor/Techni ira ID = [id number] for Spitz, Jacqueli ne Lab Interpretation (test Abnormal code = 20502-0) [facility]-Glucose [id number] 11:20:27 Test Item Value Reference Range Interpretation Comments POC-Glucose Meter (test 137 mg/dL 70-110 H : TE STED AT [facility] code = 1538) [address] [facility], [address]: [employer] Supervisor/Techni ira ID = [id number] for Spitz, Jacqueli ne Lab Interpretation (test Abnormal code = 47028-7) [facility]-Glucose [id number] 11:20:27 Test Item Value Reference Range Interpretation Comments POC-Glucose Meter (test 137 mg/dL 70-110 H : TE STED AT [facility] code = 1538) [address] [facility], [address]: [employer] Supervisor/Techni ira ID = [id number] for Spitz, Jacqueli ne Lab Interpretation (test Abnormal code = 33193-7) [facility]-Glucose [id number] 11:20:27 Test Item Value Reference Range Interpretation Comments POC-Glucose Meter (test 137 mg/dL 70-110 H : TE STED AT [facility] code = 1538) [address] [facility], [address]: [employer] Supervisor/Techni ira ID = [id number] for Spitz, Jacqueli ne Lab Interpretation (test Abnormal code = 50429-3) [facility]-Glucose [id number] 11:20:27 Test Item Value Reference Range Interpretation Comments POC-Glucose Meter (test 137 mg/dL 70-110 H : TE STED AT [facility] code = 1538) [address] [facility], [address]: [employer] Supervisor/Techni ira ID = [id number] for Spitz, Jacqueli ne Lab Interpretation (test Abnormal code = 45662-1) [facility]-Glucose [id number] 11:20:27 Test Item Value Reference Range Interpretation Comments POC-Glucose Meter (test 137 mg/dL 70-110 H : TE STED AT [facility] code = 1538) [address] [facility], [address]: [employer] Supervisor/Techni ira ID = [id number] for Romeojerilyn Brycedennys ne Lab Interpretation (test Abnormal code = 25815-6) [facility] [id number] 11:20:27 Test Item Value Reference Range Interpretation Comments POC-Glucose Meter (test 137 mg/dL 70-110 H : TE STED AT [facility] code = 1538) [address] [facility], [address]: [employer] Supervisor/Techni ira ID = [id number] for Sharon Jacqueli ne Lab Interpretation (test Abnormal code = 52772-4) [facility] [id number] 11:20:27 Test Item Value Reference Range Interpretation Comments POC-GLUCOSE METER 137 mg/dL 70-110 H : [facility] (BEAKER[facility] (test code [facility], = 1538) [address]: [employer] Supervisor/Techni ira ID = [id number] for Spit z, Marce HEMOGLOBIN [id number] 09:52:51 Test Item Value Reference Range Interpretation Comments HEMOGLOBIN A1C 5.0 % See_Comment [Automated m essage] ELECTROPHORESIS ([facility]) The system which (test code = 3811) generated this result transmitted ref erence range: <=5.6%. The reference range was not used to int erpret this result as normal/abnormal . "The A1c is measured using a NGSP-certified method. HbA1c value equal to or greater than 6.5% as thediagnosis cutoff for diabetes. An HbA1c value of 5.7- 6.4% indicates increased risk for diabetes (prediabetes)."[employer] Supervisor ID - ADMPOCT- GLUCOSE [id number] 08:12:13 Test Item Value Reference Range Interpretation Comments POC-GLUCOSE METER 187 mg/dL 70-110 H : TESTED A T [facility] 6720 (BEAKER) (test code [facility], = 1538) [address]: [employer] Supervisor/Techni ira ID = [id number] for Spit z, Marce Flow Cytometry [id number] 08:10:20 Test Item Value Reference Range Interpretation Comments Flow Cytometry (test code See Separate Report = 2758) Case # (test code = 2759) [id number] [facility] [id number] 08:10:20 Test Item Value Reference Range Interpretation Comments Flow Cytometry (test code See Separate Report = 2758) Case # (test code = 2759) [id number] [facility] [id number] 08:10:20 Test Item Value Reference Range Interpretation Comments Flow Cytometry (test code See Separate Report = 2758) Case # (test code = 2759) [id number] [facility] [id number] 08:10:20 Test Item Value Reference Range Interpretation Comments Flow Cytometry (test code See Separate Report = 2758) Case # (test code = 2759) [id number] [facility] [id number] 08:10:20 Test Item Value Reference Range Interpretation Comments Flow Cytometry (test code See Separate Report = 2758) Case # (test code = 2759) [id number] [facility] [id number] 08:10:20 Test Item Value Reference Range Interpretation Comments Flow Cytometry (test code See Separate Report = 2758) Case # (test code = 2759) [id number] [facility] [id number] 08:10:20 Test Item Value Reference Range Interpretation Comments Flow Cytometry (test code See Separate Report = 2758) Case # (test code = 2759) [id number] [facility] [id number] 08:10:20 Test Item Value Reference Range Interpretation Comments Flow Cytometry (test code See Separate Report = 2758) Case # (test code = 2759) [id number] [facility] [id number] 08:10:20 Test Item Value Reference Range Interpretation Comments FLOW CYTOMETRY RESULT See Separate Report POINTER (BEAKER) (test code = 2758) FLOW CYTOMETRY AP CASE # [id number] (BEAKER) (test code = 2759) CBC W/PLT COUNT & AUTO [id number] 05:23:31 Test Item Value Reference Range Interpretation Comments WHITE BLOOD CELL COUNT 8.9 K/ L 3.5-10.5 (BEAKER) (test code = 775) RED BLOOD CELL COUNT 3.56 M/ L 4.63-6.08 L (BEAKER) (test code = 761) HEMOGLOBIN (BEAKER) 11.2 GM/DL 13.7-17.5 L (test code = 410) HEMATOCRIT (BEAKER) 33.0 % 40.1-51.0 L (test code = 411) MEAN CORPUSCULAR 93 fL 79-92 H Discordant results VOLUME (BEAKER) (test compar ed to previous code = 753) results; clinic al correlation req uired MEAN CORPUSCULAR 31.5 pg 25.7-32.2 HEMOGLOBIN (BEAKER) (test code = 751) MEAN CORPUSCULAR 33.9 GM/DL 32.3-36.5 HEMOGLOBIN CONC (BEAKER) (test code = 752) RED CELL DISTRIBUTION 12.8 % 11.6-14.4 WIDTH (BEAKER) (test code = 412) PLATELET COUNT 195 K/CU MM 150-450 (BEAKER) (test code = 756) MEAN PLATELET VOLUME 10.0 fL 9.4-12.4 (BEAKER) (test code = 754) NUCLEATED RED BLOOD 0 /100 WBC 0-0 CELLS (BEAKER) (test code = 413) NEUTROPHILS RELATIVE 78 % PERCENT (BEAKER) (test code = 429) LYMPHOCYTES RELATIVE 12 % PERCENT (BEAKER) (test code = 430) MONOCYTES RELATIVE 10 % PERCENT (BEAKER) (test code = 431) EOSINOPHILS RELATIVE 0 % PERCENT (BEAKER) (test code = 432) BASOPHILS RELATIVE 0 % PERCENT (BEAKER) (test code = 437) NEUTROPHILS ABSOLUTE 6.95 K/ L 1.78-5.38 H COUNT (BEAKER) (test code = 670) LYMPHOCYTES ABSOLUTE 1.03 K/ L 1.32-3.57 L COUNT (BEAKER) (test code = 414) MONOCYTES ABSOLUTE 0.84 K/ L 0.30-0.82 H COUNT (BEAKER) (test code = 415) EOSINOPHILS ABSOLUTE 0.00 K/ L 0.04-0.54 L COUNT (BEAKER) (test code = 416) BASOPHILS ABSOLUTE 0.02 K/ L 0.01-0.08 COUNT (BEAKER) (test code = 417) IMMATURE 0.30 % 0.00-1.00 GRANULOCYTES-RELATIVE PERCENT (BEAKER) (test code = 2801) [id number] 05:17:07 Test Item Value Reference Range Interpretation Comments MAGNESIUM (BEAKER) (test code = 1.9 mg/dL 1.6-2.6 627) [employer] Supervisor ID - MARIOBASIC METABOLIC [id number] 05:17:06 Test Item Value Reference Range Interpretation Comments SODIUM (BEAKER) 137 meq/L 136-145 (test code = 381) POTASSIUM 4.2 meq/L 3.5-5.1 (BEAKER) (test code = 379) CHLORIDE (BEAKER) 105 meq/L 98-107 (test code = 382) CO2 (BEAKER) 27 meq/L 22-29 (test code = 355) BLOOD UREA 8 mg/dL 7-21 NITROGEN (BEAKER) (test code = 354) CREATININE 0.72 mg/dL 0.57-1.25 (BEAKER) (test code = 358) GLUCOSE RANDOM 114 mg/dL 70-105 H (BEAKER) (test code = 652) CALCIUM (BEAKER) 8.7 mg/dL 8.4-10.2 (test code = 697) EGFR (BEAKER) 123 Interpretatio n of eGFR (test code = mL/min/1.73 values Stage De scription 1092) sq m Result G1 Vickie l or high >=90 G2 Mildly decreased 60-89 G3a Mildl y to moderately 45-5 9 G3b Moderately to s everely 30-44 G4 Severl y decreased 15-29 G5 Kidney failure <15Reported eGF R is based on the CKD-EPI 2020 equation that d oes not use a race coefficientEsti mated GFR is not as accur ate as Creatinine Yin paula in predicting glom erular filtration rate . Estimated GFR is not appl icable for dialysis patien ts [employer] Supervisor ID - MARIOPOCT-GLUCOSE [id number] 22:58:58 Test Item Value Reference Range Interpretation Comments POC-GLUCOSE METER 123 mg/dL 70-110 H : TESTED A T [facility] 67[address] (BEAKER) (test code = [place], 1538) [address]: [employer] Supervisor/Techni ira ID = [id number] for FRANCIS HERNANDEZCORIID Flow [id number] 17:34:50 Test Item Value Reference Range Interpretation Comments Case Report (test code = Flow Cytometry 104) Report Case: [id number] Authorizing Provider: Som Kamara III, MD Collected: 01/07/2023 03:09 PM Ordering Location: [address] Received: 01/08/2023 07:57 AM Service Pathologist: Radha Ty MD Specimen: Other Flow Interpretation (test z5pwfQCrQPBjgLS7XxOz code = 3364) QLHhn4ohm2VsgGNsgQXq GFjliKXqieCfal18hTO5 tH45WQ1fVLPpViK6FYYb ckL1Nzj3MNVmYFRtiFCi W381z6mzu4wpcqXopFS6 PRCeHADqF7KiRT1xATGl iSKeF66ivRQySRD6OZPp OGAbxTJmEVTlIRQ5GYVv lCJbI4neVSWvWT6mytqm QThwGEppAPItyUM6WUEx jFAzZ5JpGHUfEXhzPPOx mqv1DlFsSp3mwYBurZei MFxwYXJkXHBsYWluXGZz MjAgVEhPUkFDSUMgRVBJ RFVSQUwgTUFTUywgRkxP YgFHGTZEZIJINui2EATl clxjZjEgLSBUIENFTEwg EU9NUDcHRBtZUkBIIUDP IERJTUlOSVNIRUQgRVhQ JyAXY1fLKrWMRnGPWHYt REVURUNURUQsIFNFRSBD E65RQC4TJPLpttRbGN4Q PY0NSr9CORHHNoEUTXCL IEfgGN9RATvEUBjZQjyw YXJ9 Flow Interpretation o1glqUYkNMYlgTS6CxNp Comment (test code = IKQjv1fnf2GadOFmmLXh 3365) YShuzJBglpBgfu65sAQ6 jN93LC2sWRVbDjJ7KASf vkN4Kqn8SXIyPLFcoZOm I824w6sjp6comlRrsNZ6 lNbqUFGpizjyTvQ1CYya JYUjknnmZBi8KZdmCEAc tLJ9DGIddIHwF7AfZJJn RT8ibtc2BHC0APrbUESs GnH1RFEaoVQiXJFkhBwy MQuxd274SDQ4AdGtSTPg yoJoaGufpQ1rPaSoMXJV aGUgZmxvdyBjeXRvbWV0 idqgj3L9AHszy1gbh0Ee HXOZVVEfhFdliR3mvFzh wAzqzcV8eSHmGMDzzItt gUMvEGUkJIsxbkZyy5kk biBvZiBDRDMsIGNvbXBy wAJnxgbaBRZdcf56nH2u xRIfaMXuGfHsb7QayK58 ZGwoL7LhqYUnQGHbHTPa bGluaWNhbCBzaWduaWZp Y6IpD0Wqj5YlvWcubrTm zS0agC5zNTdrDNKdU8Ba lMRsvb6sZCjwduUkCNE1 fEEgqwHqANTrhY9hUeOf G01hrkJrXHFkBSH3pNVi VLHbYFXwr8WrhJ7jb4bs UuXdotHyq1UsCWRyIwIt hHRyAJZlQe2vEJV6sGcr lF68JESevhW0JRWoy07s TDWpXFUqARKbo3CyRAWZ r3Yig2czLRz9cYCgn31k YIGcz11lBKcztzehIHYq bGwgbHltcGhvbWFzLCBh niMgcs2cLVcajPY5u1Hs xCE3yOMxmLLyx1BzEHHw uy8xuXIfCGFgsPYgkZMu RTMusKFogF69FLB7zY0x LCLenQ3fAUDcte4= CPT Code(s) (test code = e0qmwXMgOMXeoZF7KeHv 3357) QWUkl1yka3XgwFPltSNs WSgwhMAinpTizd31kQZ4 uQ28TG8cFPLfCsU0JNIz adH3Ohm9PTHxKORkgYYf G546k3abu8irfuIjhQA1 uJleUJOntotiByY2KRmh KDOgzagfPMp8OMowVVDs pLO1SWZjfKLoC4GeVTAg LP0yhcm2QUN2YFxqZNPa YlB1YGYqqNPfISTgjDcd YZvaj385SEV8KqGfCHFz p5N9cbKiTdAyHZTutVB4 tzM2EZVhIG5bnnyoj0ki RDijVMuqEDHrzfS2llU2 PLOqoSNiE4AgwQ1qMQEo UD9bsgtbo0zqWXQ9UCgh YXJkXHBsYWluXGZzMjIg ODgxODlccGFyfQ== CLINICAL HISTORY (test q0velOHeGLQwlKH5RbIu code = 3356) YIBra1sru3DieQJhzLPq UMtqlABfzlEsch94aZF1 qT39RQ0xJXKmQvG4QOAi cdA6Jyq2VMUqRFCvtHUl E215g1esk9vfyrRvtDQ0 bEugPWHjthgnXzT9JAib IMTqwghrCBl9LFlbKWFm sOL7FLRqdKViA7WcYPTd CT0hdmi5TKF4YZhvPAEj DsW7LHGjzVQoWEPivFts TYrav908PYP5HhHjDOCp liSxqIlfpI5yVpUvUFBR fU0bFDSwKoUzdSadqLZy bCBtYXNzXHBhcn0= SPECIMEN SOURCE (test q8fpcKRqIWEdfID9HbPq code = 3377) HHKln7eio1ChhBSmqMBr XQllbGWbvkOluj51sRE2 hR40RZ8oFTPcWkA5TQHn gnA9Frp3RJJoQWHmfQOy G244v3xng6pqzzZapPD6 cFfpSUXdunzaAhN0DIrb YQYjwnysLJv3UHgzRZGp kWS1UGItaOAhM9MhXLDo JC0qzsk2MWK0GWdiBFNv OvD5JYSkwAXjALDihGld PKlvj603ZJD5ObZyOABm epWdzYhpwW8zKlWiIWZC fB5xLFMnGuFvlBdahFIu bCBtYXNzXHBhcn0= CELLULAR BIOMARKER e1bqqQFlSVLtwEC6OmPs ANALYSIS (test code = BGSdk0aks3JvyOXcqQDd 3380) YRcxyBBdhnMfjj02rND3 lG97KG3nSKZrWlR0YPBi fnR2Cip7OFLmZIZrrSDd K713x6urb4avcaCfjMQ2 HYGmSSAoA4RcBI4jJEWx dWNfD13xfZQaMXC3XUTg ELBjoKWmPIRpPPN3BAJm pGUhC8peUMAsWO9cjksd ZFdlPDvrQQCqxWN4SGBl jLBbK7NyPKWvBOxgJJJc qcb8WjBlCm7mfVLxaOxe MFxwYXJkXHBsYWluXGZz IjPpZ1ZdOKEZTWwod3Sk VgFuPG0wECFpMFhkD7P5 Qutdh5OwHyZdOQ6dZP1h YEGfLZSXGYkbH5DqWNhh S8CcKGwsQ3KkKELXAFDm LCBDRDQsIENENDUsIENE MTYsIENENTcsIENENywg Z1LuOUVNJ3CuP5FqVUSD TmbkCCtnN2LcUHnaK1Bq NlxwYXJ9 IMMUNOPHENOTYPIC FINDINGS v5mocEUtSAKniQN5AsEx (test code = 3379) IAXpv4clt1MexWEnvYDg BRrmxHOclbNanj83jGT8 hQ93JI5qNCQlBrG8WETm rqU4Clq3FIVfVRCfzZKh O225p0zde3mrheSvxES3 ZTUcVWOqQ7TsRI2xCMZt gRPiB64leQGnZOI6OTZq UCQaoAWcMTWcWZK3UFYv kGKkP0lnFEZgLV2yposx VAboCAawSUCuvPL7UBQb ePRzX8PfBZQlKFfpTSCk ndn1MgXaUv2qdXMfhZkl MFxwYXJkXHBsYWluXGZz AyGvU6JcIYCmHITipJGt MLOxCMOrzPs7yVhkKEMu JAX0Ia4zWRJtQFFgSB0e flx+WA5oztNUmT2nVFXm k2JiZEFfywFuZYEgsTBq rjUlRaTbV6FlSZJcZCFr XUvuCUOuV8YvQA6mdQJl YFMbGBFma5nsd5qconav zY9hjKzijJucikDwKNYt CXfmGC73uLIiLIP6OTKv clxjZjBccGFyXGNmMSBM dG8ciT8gqGKegylmIrZt D0q9OJGFZWLfHVv7xZPf c8G8gSOdBDEvlXQioZTl AMa5WusnFL4nDHDkpFDe IGNlbGxzLiBUIGNlbGxz DSUwn8qaXJGATAF2P8V8 JPXfrDzeWE9cLYdyNtGq UH4sOBHtTSAhBV6yJN1j ev0wuBGzfRHhLDQtwM4k ZW8cRHPqGKNuNM0gRJBl IDfgQLXjhYvqXS1xSELS CczjB4F0QSPwMZJNRHyt IFRoZXJlIGlzIFxjZjAg QDIBYZMdpThgzR8geVdv fElcmwI5qPQkUPJpnYax uXFbNKZtJWzhpjUyu0zr kmMnTfATMZDuX04mvKMx m7whQzIwiAWwy8lwrWM2 KOi9IHMoVYZtZtT2u2Sp lPPlSSvjqq1gZBQbDDBS TDUwmLfnOZGgRQEwi2a9 jXttuRPre2z7bUHzREgm cHBhOmxhbWJkYSByYXRp uhMpYpFjJ1QcUQJeHzzi VfNrdq9idQQiJY5lnUFq OD42AOebxSOgrQ7pe9M8 vMqxFNWjrUZxPZOfo59z OiBBcyBpZGVudGlmaWVk YII5KUGIAATzVX5xTRtx G1d6LVHyKMA2DLPbX3yw qwHyxIGdmLA8qLUmJAOh mxDbkVhwN0d2VBAlT57w lEKes5MjRV61EOQrSoZ0 q1OtrUUkCXeaemccUM2l DJ8jvr1rmZClxwTcs56a myzzHFAdYoTpKD8yAZSs dGFsIGNlbGxzLlxwYXJc flxwYXIgVGhlIHJlbWFp ubqjRzVedxAlvDJlWC7m dLq3UVZcxqNdwnLySU47 AY3bwmNaEXCnTKWcPOce bvzyqi7uZWaxmFH5t9j6 hLOmg4wpMMVcmSgpAJRk bmQgZGVicmlzLlxwYXJ9 DISCLAIMER (test code = h0dhxKDkWNWkqLI4BwNc 3363) BCIsb5pml0NdjSSmsRMi KCdjiIGqfiZbmn16mPV6 aZ32CE2pCQOuSxR8LWYd cyA8Iio5JYKiMZRkhBGf K534z0drx5snqkKqdUA1 lPkhGTDwlugmRzA5OIwl ALAyjxvwQIa9XIeoQTVo nAE4XIFklEAoW5RgDTRi CO1xulw2JIN7QQdnIPDm WkO8PAOgcRLhXHSztZlk QQtgu260MVG0NlXtLCIe wvFwzYsrtW5aPlZiZiHE yVUiIPG4BKI7slI2VAEh XQQxefKct9GiUPAhauRj iZqlpQSckTIaAk0gbIGt V7OtC3kmdaEjbKEviCB1 aWNzIGRldGVybWluZWQg WeseTxH8pS4nADM0CvLK wEysO2TrKDVgaWKoxDCY VT26LOYdDJRxPAikbDI6 PCNjh9HyGqUeugDcnPJb ujWtVI9pHEKmjXEbqyDq ZRD8XRWeSTTIHmTyOHXs z9GzNG1aDCZouGrkQRVu gY5vw4FkZICws34kQWIc ZSBGREEgaGFzIGRldGVy bWluZWQgdGhhdCBzdWNo DRKoIXHfCS9mVOFyuyEx lKAii4QhpYThmzKyy6Gr phVlSUTjWWA4MyYHnZNc vZ92fTRmqr80OOOwMGUq C1LzYTHkKKRrPHxiwmMg nSuxHLEgu59ujVGugzTk m8ZdltXqYRDtW0toVBRy mNSkcPQyh5JvkZ3iuQRz wiSuGKJ5cFXvSQZgzS4j EDSlqHgdUSHxiW8fC0Op JHctSk7zHMTbmpuqWR1z bi17GA5zizTnTH5jdeXb NR14onHjJnXrUYq6MTaa K4tCUSAhHTEiQIZ6JBfg KordDEM6aeAoACHjn3Kj XExnG2bdB40gaMbkfJs9 vEHtzZtcjCYtbZL8FLO8 dC4wSzruZYU0 Technical component was [facility] performed at (test code = [facility] [place], 2778) Department of Pathology, [address] [place] [id number], Professional component [facility] was performed at (test [facility], code = 2779) Department of Pathology, [address] [place] [id number], [facility] [id number] 17:34:50 Test Item Value Reference Range Interpretation Comments Case Report (test code = Flow Cytometry 104) Report Case: [id number] Authorizing Provider: Som Kamara III, MD Collected: 01/07/2023 03:09 PM Ordering Location: [address] Received: 01/08/2023 07:57 AM Service Pathologist: Radha Ty MD Specimen: Other Flow Interpretation (test u8ibuYXpPDIcpTT8NgUy code = 3364) NIMjq0wrk2VuhISwsDOh TAbgmXSfxzYztb52yUX6 aY91SU4vBDHfJqX5NTYg csH0Nfj7XALlWNPiiVTe P173c0gph3nlikXveQE2 KBFrZORuV1JxWZ4uFLOr eKUkA22fxAXsLRM8NXNm QBLiqNIzGCDsYUE0FVJb gHAeE3auRSKjYL3rfbiy NSqmJOanSSSgdBP1VEIt fEUhS1GjJWUtDBubKZFr noz9GtXgLl3rkDDysKtv MFxwYXJkXHBsYWluXGZz MjAgVEhPUkFDSUMgRVBJ RFVSQUwgTUFTUywgRkxP TeNDKOJARRWDWwr8OVBa clxjZjEgLSBUIENFTEwg AW8ZVYbQOEcYSlSTGWER IERJTUlOSVNIRUQgRVhQ NzDZR8fVFcCJAySSUITm REVURUNURUQsIFNFRSBD O09POY0DYPXbcuUiQU3Y GC1GCk9OULSEUrOJHRHP FMrsRF7JJVeXBIeRUpdk YXJ9 Flow Interpretation t1cyiKSlVLLtlAO2PjUd Comment (test code = HMNqd7rne0NnyLRgiYAc 3365) QThmgYWnifFvsx03gEN0 jE66JP1fDJCwIjU4MBWv bjW8Puz2MKVpRBZtrVMn M113e2oes4zsxpYcsWC9 aLerTIMkfhqpZvM7AXxf TLEqgzkqEIy9YKugGAGe zTU8IYXtbCTnE6MaXQSl FP2sdzq2UWQ4AHvgPCCp JwV8JJVyrVTrTYFabZfh HFzai783QEM3QhVbQEUi woSphNbxsN9hJgTbQHGH aGUgZmxvdyBjeXRvbWV0 rqstb6B5VDxjz6lix3Nn DGIJSSGcuXnniX6nkTtu sFxgahF9hGJjGQIgwHyf wOFeBLBmGPudlzYal4ir biBvZiBDRDMsIGNvbXBy vIUclketVPGqpt56uB8e kAMbpGVbWbDrq2HrwV64 QCjtJ5FcdLIkIUKtGQFt bGluaWNhbCBzaWduaWZp J0LhM9Ntr5OnfCrgptPs eK2eaE8pKEeuOBArV1Jv qOHvcb4zFTnubdMaQIM5 vHSxucMcXYJykJ1dQfCk V61ejpIgPIOvFMV8xRSw ZGGgBCVug8JtkS4xq8zh MmEwisYix8WxYXRtUyUp cPCxVSCsVp0mNVY0dWyh bX82TBUqewU8NPGfp03h JBUtHBWyPXRjz8HsMSQI r1Nbe4cgFFe7mHMjl76v XVNsl45nICkcinkkYLSq bGwgbHltcGhvbWFzLCBh weGedd3eECnroIV3z7Ki zYO0rMLmvIStd7NrFJGp th9uaEOnINYnaWWtuCUk RTLyhZOthU88IYJ3qS4f WTQxeR1aHUBius8= CPT Code(s) (test code = d5bdiVUpSPTnkAM4ImPa 3355) GMEna3bmv4YjnXNrrKMs MMwluHDwmeFvzf31uGF4 tI62YP8rTMRuGgX0UUUx odY5Tyj0AJKaMAWajLVo F120s9nlc6doxbRkmXI5 eFllIVLulhpeVbE6SQbg CNFjbcqtSRz1ZBnhKEIp oGZ5ZVNenOFdP5QxQORn KH9iflo1SPO6OJlfVKKj NpV9VBRjgATaYBCwsSvq ZQpzo694IUI2NhJkFEEw s5F3zmMsBeGiMWEjmKZ3 npF7HQFcPD8lbtlrw2nf WFcnNOayOCVogvW8edK4 ALNpfEMzH2BjyH6hNVLc EI1opowyz9nkCMO6BHgg YXJkXHBsYWluXGZzMjIg ODgxODlccGFyfQ== CLINICAL HISTORY (test a1egsZGoQVBnaUE4KrJa code = 3356) RKWjj9dxf3GbiKNxeSOk HTvugOUnhpGyuw08pTG2 sC27FW4kEQEpOuN4FIVr cdY3Svc9JXTnIXRvjOGp J043a3bhv1wnbbKriJB1 aVjqKGRkskaqZaV2LFjh EEOiqafhWDn9BQvkHSTq lXY9EEEovPHyG1LvLCKy EI1xaye4XSC5QIgiCZSg PtN0MHSnnTQsVKUqhGiw RYvth190WYI9DqAwKWWb lqQiiEdzvN6fQbKzMWMB rF2fUXImOgUgeQifgPQg bCBtYXNzXHBhcn0= SPECIMEN SOURCE (test y4clcQWyHMThzKD9TkTp code = 3377) JXCiy4cpk7JkdEWoxGXb DBmzaUYsvbJygl73dAD1 vU81GF1sCZKhSxY2NNYq ntJ5Hps3SZRyYHLecIOv K178v6twb4vrzbZnzTA1 pHztLWPtdhvoRaI7IDrw LQNlulisPJp8GOvzTFVi wTB0NGNaoIJsG3EbTBHw VR5uwcj4UCF4CHyxMRQa LyC6SMUpePNuNTZnjVtz DCupq288CVF1PfCfCJRq qaQheYyeqM8uUzTqZNIE jT6tEPLrNcAoxKjetBVo bCBtYXNzXHBhcn0= CELLULAR BIOMARKER d1zgcXTpYUGxtFT5YbGx ANALYSIS (test code = KTCci1kik9OleMWlcCDo 3380) JQsggDXjffEwaa92hVG3 xQ09GR1xUBFlSmA4TORs qzL7Xbt8LWHnWXBvtEHw J094s0nul7gfeiWgfAC2 YMUxBKKxO6RpLI2jMYMy tDJxB72xwGYeSQZ6MKGn RDRjpVSjHATbKTS1HUSh tHAgA0lwJXJhAT6cgrvk PYtxMFwlMHIqvIV4QRHe kMPlH3EoANJvLBlpYHKn ngl4BkNoSz6zdLYrvVvu MFxwYXJkXHBsYWluXGZz NgOoT5QvRXNSRAojw5Hs LhFhQU8pXFGcWDdvQ5T7 Yidzf9ShChQuRI7yPW8g NTSqMXTNAFatG6ItUHwg N6GbXSnlV1UpESGGQTZw LCBDRDQsIENENDUsIENE MTYsIENENTcsIENENywg M4MyFUHKD9DaB7JrBVOO QxvqSDfgK0AcDOxkJ0Nc NlxwYXJ9 IMMUNOPHENOTYPIC FINDINGS y6gudRHdXSXuwII5MhVs (test code = 3379) YOWca9dct0ZwxAUfkMXv DNnvsUGtpuEyej86vSE6 nJ04EZ9hUBKqYkK4SHRn tcN3Lqk8HODjWRZfrMUc S804u6ard8pkgoMyjDG5 IHUvJWPgK3AvZE0dRGLm jIOiK76sqNVoZXJ2VLLo QMNvtLAvGCKsNXN3RCJr vVIxU8nmWTQbGR6roejs MLwrUOlaTLCftVX8LYAu nDPoN7GbGSHhLQfwNJZm hun3OhEyUe2tjWMbzCmj MFxwYXJkXHBsYWluXGZz IwTiO7AfVUHxYGTctURy HRVbJLYitSx2jBpeIOWt DHV9Hi1wKOHaMDAvHS8e flx+IV0pudPBcV0pZUOw p7IaAMAkfbMeHIJygYNk seMiViPeM9UcJNJbHFMk ZLcoZRQaH8XqZO9opEOp RRQiKJKzr6rni5hhjxzg iL5ljUnneWwvwjOfHZAu LLpeAZ27aZGqGGE8JILc clxjZjBccGFyXGNmMSBM kB4ziD0vcYSxybhvQgNq M0f6QQDEAXLnYHx5bWMa s9U2bCUoSGGtuKSlkLYf WZl9SdaeTH6tINNrmYAd IGNlbGxzLiBUIGNlbGxz MIZwt7lnOWVRWVJ1N5C2 LFSyzUbeXQ6qKNacXkOl LW9cWGCyIKAsRT8vIN5u kr1grNEevBLsOQXuxY3k JF1eXDAbLQBfOI8eDQSe FCtyXBOdfAtcHR0eNQMS BrncA8H1RROxXMJTZHhl IFRoZXJlIGlzIFxjZjAg ZQZCKWBevMvkiY7klBwc oSlghtQ5iLDnYVAltVji zBHdMGGhVQqixjXka0mr glIkWsFEJTXaN57loIDk w6trDuTmcXMar0wsoJO6 ABa4GRMmVQBqYtY8b4Xd uGOwCMlslg2jQJZaFQCH KAEbaBsnATIyPNMfp2n9 pAgbiKUdw2m5pCSlEJav cHBhOmxhbWJkYSByYXRp llTqGuNfK9JmGKWjRzoq IdOopz1jmOHdMQ5qxUOo QD59OZkukREhdG5og4Z2 oUpsMIEoaLEcLNAcj64b OiBBcyBpZGVudGlmaWVk PWZ3WMGXQKXhMX3rZAhi I1v7INMiGKY1UNSfK8pz vtQzdJXhnEV5qHUvUYSl xbEtvQvxU5q8XJIwX69w uMStz8GxJA18BCVxPrS3 m4NaeEOxDNspkxuxSA7i EC4uii3jwUVjltUbx38p gndpQTFwIgGqMB0lMIRn dGFsIGNlbGxzLlxwYXJc flxwYXIgVGhlIHJlbWFp zobtXtZxgaFawDJcEQ7i qAw3QVYvreTekoZyTV37 QY1ykqAmZFXiZEXiDYjs zbbiyx5dFMkkoGI6d3j2 vVJtt9ksJHCwsDjwMFYt bmQgZGVicmlzLlxwYXJ9 DISCLAIMER (test code = d2kxfRNyZMYtsPV0LeOx 3363) QMJpf2ayp2IatMIchCBf CQhpaIAbxzXgcp81yHV3 yK56HZ2bYKQbRqJ7SPAi wgL2Zpu1WLItGMLxdOIa T929b2hmd3pxylDntBV0 sMsbMTYumuwaCoE1MHgv NTUdzozkWVl6OBvbIYKi qOG0LFTmoRRdU1BzLHSu UN7tnll7TDU2ODeeWZSv EoI0RKLulHPjCXKfdJzx KGafn214LEC1QfTbCIFu beLmwWappN6eTcKwPxRU vLEpVOD8NQD0jhN3BJVw DHUewlClc5AxAKOxduXj sUmwyOCjpSLuQn5ceZRu J2RwS1jmfqIhnBEfoYF8 aWNzIGRldGVybWluZWQg XphlBeO9iL2tVDR6QtDO dFtpQ6CyLVMdnWEfhBYL UC26PFJuOLNeVVnfoLP1 RTWhu6UyYrCaewXjnQZl cnJyQI4kPJSfwQAmpbSu YRP5MJDcIPJTElDtAMKo m4RsON0qUMUtgMvwTBOf aZ9sp6JnXIWnx29vGVXy ZSBGREEgaGFzIGRldGVy bWluZWQgdGhhdCBzdWNo THOiHWRbTY4sZVTsybHg kNRqg4ZkeULxmwTyx2Ix oyYqIHOjHME6RoTGpHVs qL62fFVftn66ICBlXNPo F4GkCVFmKZHqJTpwboTn aVudJLQqu16vqEXzeeJp i8IdzqWsLIEqZ5tvLQQw gZJxaKBgz9MlxV4iqZMn lgPkXGZ0gXCrJAMkuG0x YIGcdEfePSHulV3wE4Sd HLixBn0rGHTkyvdkOW8h rj76JT2coqZjKS1pvoWv YT78uxYzSpOtOKi5WZil V7yIVNDnHMJdPGY7EZog WtzaXAZ8hvBtJVKbu8Pk RRnhX7kxR37hzUcbrKj8 aMKokImsrCJluEB5UBQ0 dF2zNuymMFI2 [facility] (test code = [facility], 2778) Department of Pathology, [address] [place] [address], [facility] [place] [address], Professional component [facility]. [facility]ges's was performed at (test [facility], code = 2779) Department of Pathology, [address] [place] [id number], [facility] [id number] 17:34:50 Test Item Value Reference Range Interpretation Comments Case Report (test code = Flow Cytometry 104) Report Case: [id number] Authorizing Provider: Som Kamara III, MD Collected: 01/07/2023 03:09 PM Ordering Location: [address] Received: 01/08/2023 07:57 AM Service Pathologist: Radha Ty MD Specimen: Other Flow Interpretation (test q6gfdBEdXKDvdTQ4GhHf code = 3364) IZAjk5bhi4FmaSSnxVXa PUmfpKAnerVpib41cEQ9 oX39ME8sLKRdZmN5XTTz yzI0Hdr9NCHsKFHegGFe M751f4xvo4gxxqBfoBJ5 QPPmBFZtV0EdMZ9vDQNh sGEfG24cyQHhXYC9PXSc ZXHpbRJnPMJlUOD4TVMz xQBbJ6kcKUMbYC0ukgen BKrrXQlvTAIzdOG7GDRg pKQfM2FmVOEgQElfCKHi yjw9JgNnLy8euRZoxWkr MFxwYXJkXHBsYWluXGZz MjAgVEhPUkFDSUMgRVBJ RFVSQUwgTUFTUywgRkxP NbXKOFOQAEMODhc1HCYn clxjZjEgLSBUIENFTEwg CS0KBErNPAfSNbUYMVIE IERJTUlOSVNIRUQgRVhQ McGBN1uSCxRJXkKLYFFv REVURUNURUQsIFNFRSBD Z55ZUZ1EINIdnsNhCH8B RI9KZp0OITFAWaRZUATS KQsdRZ6SVQfXJHgZRhqz YXJ9 Flow Interpretation l7vdpXSeMUHveGU2CaKr Comment (test code = ESKdt3cfy9PxqEAgkDFp 3365) YRaxmIBuerMhbr40zEL4 eT82CM6pPLKwFqZ3MPNr vfL0Ibn7ZCHoMWQtzVFw U604i6zit7bmehSnyYF8 xPmzRTHzrbeoRlO3FOho FTVqcprkPVj6BBeqWLTe oSY8CZOgeECkM0JhSXFz TS3dkkx2GKR8ZQhxFFYa AdL0ABKsfFPvJVIosDcq HIysy982VNS9UqPrKEQt fkCcjHverC7oDxWoCTJC aGUgZmxvdyBjeXRvbWV0 jwnhj8E5QQudh2uod2Ou OIPVTCGvcUrdoF4amRtv zGtbeeU9dPFeVEUdrZyh bISaYDCwDVkupePbg8yx biBvZiBDRDMsIGNvbXBy vDWzypnhWOFvxz69iM3y uKKjjKVkEcKpv8YcgY59 BCghH5TirXXjSXBdOSNz bGluaWNhbCBzaWduaWZp M3GjL2Ndm7SalSkzzxRj xA1qcX7bQDubDMTjT0Lu vTRmyw7uGGyuntMtJIC5 uGAmidOjMDHevX3dDkKk I18tutLaGWBhCYM6qNOo XDHaADYqd2GcyZ8mr3mq XoEsrjJlr3IrHOSvGqVx iWWdHAQrKi9xUPO7zDxx cV42ZOQtszM4ZIIcx90h EDUuOPWtIPJgl7ZvGXEI i9Irb1saDKz4iYPwd53p XOBtx80iRJuutpbdBOZi bGwgbHltcGhvbWFzLCBh guFmrk3aCNtwwTA3w4Jb gIV7oVNahCNwc6NkMYWs yj2eoTMsVQYsgAMytEOw TYJleTCbfX02JAM4wR5d UVMyzE3gAIHtkf7= CPT Code(s) (test code = x9rchAUuZJQmaLG8AeIz 3357) EDBbh5aaa3ZiuAKneWLx XZesiIOpucDnle65oNB8 jV72EH0mVAPtTwM3MOQo plZ3Oqk7NVJaVWZhjBOv W710h8xwa1uqxiVyuYT1 pJhjXRQbpcjyGoK2NKhc QHPksiymQUb6ZHxlMDWj sLP0QWEgaYThW0YtDYVw AQ9wuhe1TYG8XImjPNCw SuE3ZWNtdRBiQHVvgUnl OAhab640DPE4QtWjTLFd z0I6chOiToJsRRClrNB6 foN5ZRCwGP2glgqgi1qs GFbcFOqdHIZokrK3rnO1 XDJixYRfL3VkhR5hNCVd PQ4urtaji7sxDWL9CPat YXJkXHBsYWluXGZzMjIg ODgxODlccGFyfQ== CLINICAL HISTORY (test j7javXWdEHQzkRD5NtPd code = 3356) ZHAuv8zrr1JkmFLlgSIr QVhuwUAkvbLquw03uGK9 iS04YL6hHEXiLaZ5TBEx odF0Ean8UXFcNDMtkBUq X627r8nvz4ltrfNtaBX2 dIpnITEynpzrTfY3QYfs PNZabogxYNt1EQtiMGCp jBI6AVOwsGDfU1RdCBDz PW7irsh1LVT7AZizKHRt EpL8QZEcfDVbETLxwOxj XBran918ZPK1NyXpWTSv roKziUowdG6yYgPbJLYP jX6mFZKrWeVtvWsfcWHg bCBtYXNzXHBhcn0= SPECIMEN SOURCE (test k2cdsZTbWHNmcUG9AuDb code = 3377) EOFxc2kbn9SovGYjyPCn MGtjaCKvogEidi34sRY8 dU24RI9cHVRuNbI9YZMg kyU5Ywv8SHIkFZPslDNs Z596q9fkq9iprtAhzZC8 lBwnRGCvrhebKpX5CGfu ZTLyckhvDMh1HNasRIQe aCZ0DPEtaMDiB1WdZRUv FD4fhoy7WAW1WQycBUMm MwZ4DOUqcSLnCEKtpLyn VRozn257CYK2InQyHHTb ipXgvDhihD9pTdHuEVZY gV6vVSVfVyDkyKvcxPZd bCBtYXNzXHBhcn0= CELLULAR BIOMARKER l0ivtMWnTZMsuRK7IyBp ANALYSIS (test code = ILTlu6svj7KhhJPmeKEu 6900) XCenaJLaigRrey02oAY4 dM01UE2fEKPcLdT4MYEn xhE4Anm7KYHxSNQikUZr D732v2fyk7hkicSfbTY2 YVQaXKRlO2ZqNV2zVZWl rHMnY88crEIdLXD4TXIs NLXdjYFlTIFoLYG5OZCv hDZjH3gxWHKnPH6ftoou ZLtpIOrtUHNoqFK9PVFk gFJkL0FjXJDuUGuuUWFj dgj2LdShKi6nzIUirDxw MFxwYXJkXHBsYWluXGZz CaAkS4KkHKAPKBsul4Jy FnOvTF4qUZItPApeH3O8 Mwxgw3HyVaYzAX8tSB9j ZFQhCXAJBYfmQ9WqHMdm W2KmEQuqU6QvRYDZRYTf LCBDRDQsIENENDUsIENE MTYsIENENTcsIENENywg L2YwGIGTB8WqN4ZpFOPM GnbtXDbzE7MbXToyI4Xh NlxwYXJ9 IMMUNOPHENOTYPIC FINDINGS t1gsuDVwOQSkuIY2UjKy (test code = 3379) BOAfz7sru1AdmDCcvWBx PPweaLMnyiPdoz70eUL7 xC23GD1aNJAqCnK5UOPq uxE4Jxl0SSZjXTHsrYXp T748p9egn4fekkVgwVD3 DNVeZXKwH8TmFV8uBWDs tXHmK30pxOCjGAT0DIPy ZQQgjZYqNRRuJLP7KOUr iGNvX8ltRTMqPK8yvmat ZZdiZChzARMqhXI1NMPt wTNhE8DvCFIsMDahBWIv zef5AyUzQm0uqEXxqBxe MFxwYXJkXHBsYWluXGZz FfIcC4XfTECxABLwqCTt SVVqSUXnsYc0tUxhGOCi QLB4Ho8iJOJeFVEjHE5c flx+YP1jtmSYvC5uBGPk d8ZuRNYobhYhUVHbsKVz mhDzDvHhS1HhWAXjRVNu EMngIDHhU0WcMI0pjVKj UURuXNEgz4ycp3irecps sT2ieYsjtReuezOyQKNz CXpqJE24oFCfAYA5XJCk clxjZjBccGFyXGNmMSBM jG6hmM8vbYGamcdmTkQf X5n9UCFJQIOlRIr6sGAd d4R2tMOtYQVjhWEbmIGq IKs0NubmTE6lTTEznAGk IGNlbGxzLiBUIGNlbGxz CZFvl7uaDVVIJMB5M3V3 BVKarLqvYG9eTWbmWkGt JM0sMJMmZXEyOC9uSH4l vb7zjLMjxYRoRABvfT2c TV0qTKNfVAYrDX7zZCJp VHwzWQWvyGlcMO8rETDC IhgqC0B2WOAyAULAVQwz IFRoZXJlIGlzIFxjZjAg JLMBPZFwtIndjD4jqFlq xAtxxsS7pXHdOOZylJej hMPgUFKsIMgaloTod1um izRcLhCPOIOfD31dePTx e7hxEcVkbUJry8fkuIP6 CKt5TDUuGJAlDmL2o0Zs pKBuNQkcig5bVMWgPJIE SMMrySbkQSWlHAMnw8h8 gYuxdSDyg4e2dZIqPAzl cHBhOmxhbWJkYSByYXRp ncHxCgIkG5YgUUJjAqty OyKkpt2lkYEmAY1fbMBt MS47HOagnOQyuP3xp6F9 pUbwIUPxwUHeFYXmr23l OiBBcyBpZGVudGlmaWVk URB3WZOUEGDwXT6oEKgg K9h4NRWoKKT0GYRzE6bu zaMcyYGnaXR8vNUcAYUa wfJcwQlhQ1f1FPDhE55m lCHlu9QvCJ60JEUcLaV3 v6ZzqAEdAIonajvfOX4g CC2fad3oqPTwqpXai03q bmvjXATcHeRsQC2rLOJh dGFsIGNlbGxzLlxwYXJc flxwYXIgVGhlIHJlbWFp ducuSxZbcrZirYLuWH4f iCc3QRUdsdRjbkFeBD07 UA6lhpNxZNBrSIDuHWqw pzsasa1bHFdbtLU3b5d4 aYYra7glDFWzjTtoXFMp bmQgZGVicmlzLlxwYXJ9 DISCLAIMER (test code = b5kngWWjNDFaaWY7YkCg 3363) CNUis3vyi4ArfPExkWCw PJmvaOFfcqLfnd89eHQ8 kI24XH1bXNSzRuZ9YOFx muB6Znx3WSQyELGnwGEl J726d5dmi9snnkRqdCO3 xRrpUPZujkzkFtW3SLki AJWbvyxuNRu2HXvnVBAt xZQ5GGLhoFGkY6AjLTEk ED5hnrt8UET6SBotLBDq YeK0PZZxaJVnJSCokAwd KAjed121PFQ4QwLoMWLp daGelNiwdN8sOuGdXlRV wALhLOM0EXT1bsY0AFKv ENRfdbOmx7HkWNYezsVf lWknxENmwLYiSa5uaPDa Q9ZdM9yreiFriCVglCQ2 aWNzIGRldGVybWluZWQg CwvgVtU9wD0zUOL7InSK pUaaM8XcAZVnaBNmcLNN KR32QNBkMLBsTSqhlCF6 AUAan9SiTjVgucRwtGLn inChOM3tGWOupPDtsgPz VNL8GSUdNCRNOiXuXJCn q9ObHX5bCCLjvNmfDZOx vZ5em0BfICQrs02tKROt ZSBGREEgaGFzIGRldGVy bWluZWQgdGhhdCBzdWNo DALrLANfBY4dVVFlnhQm mNVgl8XimVKptuMsl1Il ijChWRLiAIM4RfDNfJRh wE31kXWloe30JPUnADYs A4QrLQQoNVIlGEwidmPn iMwaRJLkf81lbKStzdSs h5GlodAqFCTxN5raGCIv vNXcoIGnu7IqwY6igJYw ohBeTMO0iMOmVQPctW7l FDObnXepLROkzG9cI1Ew NTgzFz6mJYPmknriQT5t et53ND6gryPcSL6lqkGr QI85bgPlBiFjYOu8DFmo A1cTNXAwTPTdZAR9TIea GqegZAZ1gqUeEBOgd6Rg EMaiT9nyB52xtOjfnFf3 mVQxdUrgyMBcxXO1GUO0 tZ6zZfoiNGR9 Technical component was [facility]'s performed at (test code = [facility], 5682) Department of Pathology, [address] [place] [address], [place] [address], Professional component [facility]'s was performed at ([facility], code = 2779) Department of Pathology, [address] [place] [address], [place] [address], [facility] Iiqqljbkz2898-00-28 17:34:50 Test Item Value Reference Range Interpretation Comments Case Report (test code = Flow Cytometry 104) Report Case: [id number] Authorizing Provider: Som Kamara III, MD Collected: 01/07/2023 03:09 PM Ordering Location: [address] Received: 01/08/2023 07:57 AM Service Pathologist: Radha Ty MD Specimen: Other Flow Interpretation (test d9hdeGMxQMVlpTO4PaYx code = 3364) UKUhf6slq9CycSOqyUXj RZhqgJRybwIidd67oDA6 nP73UG2jDQEfJqQ3VCNr xzY8Ehf8AYVyYQKstLMv E633v8nuf7aqxiLgkHD2 JZCqJOTlI3TbIY2gRQYu bFYtY79pnMOdVAO1ZMGr TZIibSJoIDFyKFB7IVTa fLOnK4amRAHkNU6bqbtg HKfuEZdbNPXxzDN2RMJk wELmG7MrEDCvAVmlRWJh eha8AvCwNs8uwHNayEcm MFxwYXJkXHBsYWluXGZz MjAgVEhPUkFDSUMgRVBJ RFVSQUwgTUFTUywgRkxP LjVSJTDNMJEQAnz9XNPe clxjZjEgLSBUIENFTEwg WE3YYGpBICpOYjHSXZXL IERJTUlOSVNIRUQgRVhQ BhDAB8dMZvFAMnENNDTy REVURUNURUQsIFNFRSBD T84EAT6AVFAmvgYmHK6F BP7HUi5PEKUIEfWYBKKE CWisUP6IITtRKGmRPnwk YXJ9 Flow Interpretation j2zptWZqXCZfjIH4OfTf Comment (test code = CYQxm6sha9LqeINinUQx 3365) JWdqxABqckXkgg83dDN9 qL35MD8iJUDoIiX7DYAh inD9Rjh2MIMiXWMtiDWb F046v2boc2etbwRazNG7 qCqhQZAllfpiNmZ5ZPmc OGStdoquNXl0OXhqFDAm hWQ0GPIfzZDtQ1BgBVEb JR5enwn4SPY6HNszCTGy ThM1CZThySEpDVBhuYjr XYbjo434EVM7ZpFtYRDi arJcnVlkbJ0jPgRcTFOA aGUgZmxvdyBjeXRvbWV0 tyext1U9XPqmo5vcx8Wv EJWMXPJlgZbgiN5vqGlh bCbhtoI4kEFmTNEiiFdq uJNyLRXzMZskesQfu0fc biBvZiBDRDMsIGNvbXBy dXMdjzeeFUHmqc94eC2s kGTqjDAbGoUgg0AadC16 GKjfY1YktOJgHNHoEYWf bGluaWNhbCBzaWduaWZp P5SrM8Wfi7TfiDrueeId wT3qoA0tJOluRQOfE5Zs eHWuds5gEXzugxFtLOU9 jHDjwxPzBYOdgI4tXlOw K21glaIgYOHaUHV7rZMy MLTcGOCsg1BwdT9sb1gg PcFbaoWhm7KgXMSiZjTa kADjFZEsMo8fKYF0iKzq uC93DFDlssL8UOUyq34j GNDgVVQlAXEvb2ThQLME a0Prg8veDCx5iKOxc80w JJZla21gHQpygogkIXZg bGwgbHltcGhvbWFzLCBh qeWigp1qVBscbIP0t9Ly jXD8zMKjdNJmh6VdCBGb ew9tkXAbYSSlyNKccVIi OPByaUAxuX90CDE9lJ4j CEUwiB4zDSVdpa8= CPT Code(s) (test code = a6oozWVtQPBgmUU8HnXq 3357) ZBZtc5aut7UasLUunNIh EJdqwBBvgdUdfn16jCM0 xB18WJ6pAIBiEzI3RVQx hbB6Hcc3MJNpXKCoxXLc R926z5pew1onfcEqwTL0 kIegHVFcsirnHyZ5HUdl GMEzaeflJXx5JFzbASHe yMB9KWWlpGHyE0VgJNYx FY2npcy5GVE3LYxdBTSg RhY5RMCyiAZhDIGbtLjt PJbrj904RZO1EuDiPPFb u2W8rhCdQtXoPZXtcOR0 ylR3BJNnCU6kqiplm3uw IJatCNmpWPIuipT1inO6 YACcuXNsG5QiaO1wJHAy HW6fyyfjx7epSGC6MWru YXJkXHBsYWluXGZzMjIg ODgxODlccGFyfQ== CLINICAL HISTORY (test p4glqATuYCEuzAB6CiWc code = 3356) GEFxe2tll2HooFFyeVPd LXgjoKZqidNumb48gKN8 jY14GI3jKMSpTfG7HAPu bgY7Mex2QHMdQSLxhOQq Q447h8qrf2xgrwAtdXP1 tLpuIPGppnjdQwO3ZTng RZCsujjcNQj7GNkgNJGk kZI1GXEllXXkS5ErIDZj MN1dfyi8DQF0NLcaQFAh EeI6BZPuyKKiEWNxzFco IQblk822KGR8HfVuGIUo ngUnzXjvdV0vOmHnVEZR jG9pSTUnFcKwzZmoxURi bCBtYXNzXHBhcn0= SPECIMEN SOURCE (test f6drwJFjZXMciUO1AzUe code = 3377) NQTxm6rvz8KacTHvmIVp BAyqtPUhgzAceo08mTD4 dG57IL0uBUBgVeI2FYIn kaJ9Omd3UIShBRIswCVl P581s3nhj9ojojDsuVP0 bBkpQVBqpcfdAxQ4XSio ANVahdnmZNc0VYurQWUa eJQ9NGOopSDmJ1CdAQLk YR1fuax3WTP7EMhiAJDq EhY9DVVquWMlZJLckCwu DMrte844ADO0BvDcVCWt pmGhqDqnkN0cLqApOMLF yA4sBVPnQwRmuVfmwBHs bCBtYXNzXHBhcn0= CELLULAR BIOMARKER u5vybHSdXFQlcQX7VjAe ANALYSIS (test code = WUYej6azz7DbeGGdcDXd 3380) OTgngVOgvfCkbt67yNU3 kF17GR2jHUJtBgJ7JKAq aaG7Iyv4NJJsRJXrvALe H154n0jus3gzsqBohCL3 IQYbKCKrE8QjTJ9aAJEe pQLyE44qrETqQFK8PBSr FCVauVVrFVEwCFF5AEWd oBOnP7wqYDDrTW9gmrwj ZYjfEGmlUVKixWX0JJLo yOJaS1CrLUWpXLjaZECw hql6IvHiBt3jzDZcwNac MFxwYXJkXHBsYWluXGZz QhOtB2ShSDYESRxsl2Km GzCyAV5xMIAxMIybL5F7 Rueqk4JnPpHaCL9hZN6i QVBnNMHHJOuzV1VhSQyt S5CfDEczP1PhHCPLVQEs LCBDRDQsIENENDUsIENE MTYsIENENTcsIENENywg C1FrTHNMA6TxL1BvOGZG WaplNOstV2EvBNwyX5Px NlxwYXJ9 IMMUNOPHENOTYPIC FINDINGS j4pbrYKqNSUexFY2AdSq (test code = 3379) KHBqg0qsh4GdyNJjqXVe REamiEKagdUcsc08kXN6 jL61FL2nYHIbSrV1GXCf fzK5Jvz7SOTdNREpbQBv F627x5aqe1czlgVwiOV0 OOQdSGKbV1QlHD0fWJOj eFEeN39bcIGjQJE3RCTf KSTcyWViFIMnUXF4GEDo uVDhD8fyKCTwAM1skfjm GDcdHHsuHNGzcHP3RCIt wWCzN4WsOMMaZLcbMGDm cow7GvQlEt1maEIovFnm MFxwYXJkXHBsYWluXGZz AwQeQ1AdEHQtGARwxTGk WJDuFJRmpWv6cIhqRKGi IJG7Ad1lTDVdXRBtVV1r flx+YZ0ghvTEyX5bJVMt e4VfKTGvkhAyDDDjaERq noRhBgVpP9ZbFAAkSZBh WYnjMAKjC4RyNE4luPPd JQDrBAAcm6pxa3tezkay kG7pgTslpLgsdmLgPPEt GUqfKB43tZOyNVK6DDAd clxjZjBccGFyXGNmMSBM xI5jkF4nuAYjqtuqZcHc V3l5TCWYGMBhKLv8xYXo n5S8aDCjTPSrkGFhdDTn UTj7DfjrRU8qNSEhbOPp IGNlbGxzLiBUIGNlbGxz WUIdi0nhXXJRRXH3J1O9 OZRpnXdrYJ6fHXdhYjZr ZW0wWCPuAEYfLN7fOC8g wn9fcLDguHCeNPGztE9c NY6fCXAeXZVfVB1nEIMz LZevETHmeFicIK7xTPXV TkroA3L8KIBjNLBMPInn IFRoZXJlIGlzIFxjZjAg MLOEHVZjiPjkdU9usKbf eGcbbwN3pRQyIPNpuZos aYEjVAKtOYkpppOnz5uk sbZxViXMWHOoP09utDEd l4sqLbTeiCYag9rotTF5 PGz4CGSzSGMhJuM2s5An wLJpQRmwgj3tKKXxQDQP FHAjvKqfTHLfITFrr3r7 yCypeRZup9z4qDPtRWiu cHBhOmxhbWJkYSByYXRp wiCrYvVsE7FuLYLhDgis WhUefo1lhHRrPR8pzTHj SL02PEcvxOAqfN2ou4D0 gHcmJQBgkDFyDKCpf61r OiBBcyBpZGVudGlmaWVk LJM1PSXOHPOiVP7dYLrm T7k5BEZlFTV9JKJbT5jy huVcjTWxmYT0aEZyYAZn flPaoEugL3r9HWHzI16f qJVwt1UuRI44CSLyLpR9 v9BowAFzPBjgpvgeKY8j OM1yxd5kvTRmjlQon93m lrzeFIUlCiFmJV1dLTLl dGFsIGNlbGxzLlxwYXJc flxwYXIgVGhlIHJlbWFp icofLoKjriQtuXVkBO4w oPy0NGZvikFaraCqZQ41 ZC1tvkPeYOCxWPNuOCwe cszyfg0hJPdsoYN0k2x2 eHNgm9edAVFsaLijRGWq bmQgZGVicmlzLlxwYXJ9 DISCLAIMER (test code = z3xgpQAlIBUvcDZ8WjOz 3363) XHFia9woe7CjwWDxnCOw OCwhlTKcdnGzoz77pWK2 rR07FC1xYAAoJiW4GBRw ycT5Gag5HBQjIHFkfQDr B097a1nwm7tipsYdmGK6 dZjcQSXuqufsCnN9UFkq SMRobltnKKl2HEzxSGEb eYH0KZWvhTUfN6RnYTYc YV4heiv3HUP3UAevWXQa PnF4TIVklKFlVKVevQfe HQjwx364VMR7FdWhRQCx tkEusCgrvL4eTfDqKqYC hXTySRV7YSE7wtD4VREv EAZxioIbj3PrRKKmkbUn vFjwgKCljDZgCj9rpBDs L9EiP6sbndBwjKTmqWQ6 aWNzIGRldGVybWluZWQg DzokSqP4bS5sBKB7TnGP jBycW8KrMGRtgNEpqHZQ KI55YTQaAFUgCIeufZR0 XRJhz8HzFfIzetKxjSYc oyWdMU0xZFQltLWsgiVx DHR0LPTkENPFVlNoNNFc r3FwTF0bAJIebTfkTXZg mY6ar2KxLMOeu03uCOGy ZSBGREEgaGFzIGRldGVy bWluZWQgdGhhdCBzdWNo ZXZfOMTuEN6cJBFyqfHj fOUnk4WkpWNlfzEwy0Ap saVrIZTmWVP2WtNYqQAi hB69eVGurm65ZEYiIAJv K6GaRYKsGWGnDVmowkRb yHqoKXDcr87wpPOlpyQu d9XqcpLuCBTmK2wbELVc xGIdtRDxj9CrlM5weBVm gqMhUST8xBRiGXFoyR1q LELpiSyjHXUwvI0dK2Qv MMwbUe8wRRVmtwkbCB2z yz68CV7yzmWyYW9zewVc ZM33xdLgAjBcAJo9HDsi M9tKUGFtDUNqNWY4CKee VvuzDHF4crNqVZGuh7Bp LAqrZ0tlQ75nzMstbNx1 jPWbiEfuqERjvLM8YLK3 wR1cLerrOUS5 Technical component was [facility]'s performed at (test code = [facility], 2778) Department of Pathology, [address] [place] [id number], Professional component [facility]'s was performed at (test [facility], code = 2779) Department of Pathology, [address] [place] [id number], [facility] [id number] 17:34:50 Test Item Value Reference Range Interpretation Comments Case Report (test code = Flow Cytometry 104) Report Case: [id number] Authorizing Provider: Som Kamara III, MD Collected: 01/07/2023 03:09 PM Ordering Location: [address] Received: 01/08/2023 07:57 AM Service Pathologist: Radha Ty MD Specimen: Other Flow Interpretation (test k3ugiGJoUXPicVE9JeLs code = 3364) IZAfa7klr5KjlRGaiQQc QQsfoLGhjhPbtq57qJP0 qP07VX6bELIeUwT4NXKu ocL0Bml8FFPiSKSqvLMb S512j4rak5tozxPoxSC6 DJZoZISnX8YeXE9sBQZy tOOcS51mmRDhWBF6ZBPi SROyzRUrQXMiPPI3FFIh hESyD6fzYGDcRU9xjfzy VGceTFmqFLDcwAC4KFIu rEFvK2DlAKKuREjbLJHf frz4WxZwOw7tnGNsfSda MFxwYXJkXHBsYWluXGZz MjAgVEhPUkFDSUMgRVBJ RFVSQUwgTUFTUywgRkxP ZtKWFBUHBVQKLta2PVJr clxjZjEgLSBUIENFTEwg BU0BWLsUZYdSDjPHAMWC IERJTUlOSVNIRUQgRVhQ EnGSU0nRQzZMZwDEMQQg REVURUNURUQsIFNFRSBD X21JBS5RGTJmnwAnQY8I ZZ8DOi8EORPWBtQRYLMR BZdiYP6XORhKDZnPLexl YXJ9 Flow Interpretation b6oacFQfSDHkfVK6YvTs Comment (test code = NGGqw3ube8QofXJlwILs 3369) RRlosUChzuYjht19hXA5 nK68HB9oHEYzAjB4CXPn owD1Rzn6ITYpTXZhgFTc Y261u2slz2bhhuRgrIB3 qRnpCGEjijgtZuF6GBan ZGGhioubWQm9BVngUXTe bQI6FPPygTCsN8UpMFGp FK3koyl3WJY1KOcrAKLn UiT3IJSxpOGmLIWqeFvn DAdnt657RMS0ZxVlTUQl rgOzjKdnbQ0eBiJfJLSU aGUgZmxvdyBjeXRvbWV0 dqdjy7W2DUzov9izg2Ht HZXCJGPyvXzjgR5owTmn rDsddgE3lOYoQOTgzTht sBZlRXPpCPwxqdXfp7ot biBvZiBDRDMsIGNvbXBy eIOapffdUFZleg14qF9t hQAxyGMpEcMhq6NlnK63 HRdoG8CtmXTfQPStULIg bGluaWNhbCBzaWduaWZp A6UcR4Mps2DtmFbktvFb zQ8xpY9yJTndIJYhM9On oLIdlx5pSSwycfZpQEI8 hEZgcxAwNXHevK6uQlOw E77didThZFRnPSG1aBYn DSSjMDRnr7TxpK8nv5sa QxJqgwYbv9SrWNXcReYi tXUmBXBhVr2cWEC8pGkk hI59QSVpaqN0NPWmc87o SYDyHMXrBUMvu5YxPHGI t2Upn9ynJWq4oLXep18m YPRts85pAXodzcrnPTAm bGwgbHltcGhvbWFzLCBh ajZaeg5aWPlgoYQ2u7Lm sKN4dNUleZGit9AwGSJn pg7aoKEcWQVgwEXbdMYe CKGbvNQuxP85EIA9aW5y PIIybQ2cIPQldm7= CPT Code(s) (test code = q9gcsHEcHTXfuBI0DaVn 3357) OXSrv6kvd3NvkNDjgUKs GHknhGDigdVfvy70dKZ0 xV12JC0mKZYzKnD6LAUf njN2Ulu5WHRvFEFpiOZx B097m9nbx6oybbTfpMW7 mFdtCDOvlissXoO1REbw KMIgxubxSAy6JYizGAMj oHX0LHJumVReS1AyNHTc BI9wjaa5GWL9LMtgOEVa FuO4WEJljJOvMSRztDhr OTbdg365AFT8LvKfSMKs s6F9uaTrNoJnAHXusAZ6 kfP5NPPbIR1mktfye6ox HOrrKSexMUOhymD7kiS0 QRZjwCWgR7DnpR6cYCXr PG4lpknwr8huEJT4QRtb YXJkXHBsYWluXGZzMjIg ODgxODlccGFyfQ== CLINICAL HISTORY (test g5domNQnGHKlxTW2FeXq code = 3356) CCPzb5fbx5BquECeuQPz OFcwgUXtkcJkpz86zYE6 vV68CA5xMJDoOqS6PFUf ihH2Inn6EOXsJWLhmNVm F407k3uuc8khcyAckPD0 vQypLFYwcdseAnI2WYoi KZGezvvvCYo9CTapJCWg sVV3VUAcpQTuX2CrWIYi RM5aepe9RCZ1BWcvVFHl HjT8HUDzmZCvKRBxjMqd MIeob332XXA6GlSbNMQk nbKhbJltsE2oUmPoWRLJ dY7nBZKoVdLnmMskxEXn bCBtYXNzXHBhcn0= SPECIMEN SOURCE (test l8bpbPBvKTCqdWB0VcMb code = 3377) GUMer7zic2ZbsYSdmVKv NOrtfEHhndGmoa06pEB7 jY60FT9gQCBrNpR6AZMy mlL6Mcn2TYZtADWuvYRm R651g1zel6myqdMdoNW8 rLiyERAxnrqfCfN5WPdp YSNvmryxVDu0OAjwHKQx gNX9ZBBiaHTnT6LmHLOo IC6sesj1RVR2LEzwEJJv PvR4HLOvaMWsZAIooSae NMshc305FJQ6XkYqGJMh weGfyOekcV3jRbHuNVYF gP5aBEOrWuMtyWntpPKo bCBtYXNzXHBhcn0= CELLULAR BIOMARKER q0okcVIvWJOqkCI3BeVt ANALYSIS (test code = ZUCys6ntk4JdbPUmgZPw 3380) ESggaLTmvgFcrf07pUO7 mZ70DH1fGAPtAfE4RTTz odF3Nxf6DLCmRXIlfKIl B419l3uya2ogbqPsgOM2 XIZuNWBpO9IyGZ4rPAZl lKKiD43weLMmQPJ7XDPm XHCfbFBvCMCdYLM1IIWe aRXrI3pwMVLoXR3fkeqc RRofQMnnFMElhNC1QUMd xBSdV6UzJWBsRIzdOZSd ise8YeAkOu4uzHSnhTnl MFxwYXJkXHBsYWluXGZz ZxPaE2VsBKVDRWhmy4Sr TyDuEU8wCYOmGZjzG1F8 Ppjrh4ObHmFxIY8kWA7d SNGjQIOBPGqvD7UiKZaz D5CrEAjqR3PyHUCHJTXe LCBDRDQsIENENDUsIENE MTYsIENENTcsIENENywg O9IsBZAGQ8YmU3PbBTFK XhqlBOthH0QlOLpsA1Jg NlxwYXJ9 IMMUNOPHENOTYPIC FINDINGS e4ccmTRlPHTtzJV2XkSa (test code = 3379) GDDsi7mom9TjwFFpmPDp FZyxgJQxefBenf07pKX8 yT76YN3tUGNhWiO0EJZa epB5Vhu5VQKdARHbbEQs Y934o4cbb2zsorKyyOZ5 BNLmULVeI7NgRG8bDTMk pYEdX46nmBCnTDN2UGSk ISDrjPWmZWYzPZK2LJBf kKIiH1zgJOFtQE6mmyqx ZCcmNUjiGDUpdYN6UKBu xKRtI6GtGIEfJWosPQWk xtc9PcThYd1rgWGqhBtj MFxwYXJkXHBsYWluXGZz FzOdU9BbQZCdHZDnbREu KZRkHNSqcNw2bUvnBLYz WRR7Ho9cYWIvMAKbAP4l flx+XL0pneGOeV0oWYXt i6AjNYXlrcTwONGlkLWw hyBrOdZnR8MqJPQbQXQy HQyaJLCjJ6IwSX9qaSEl LIDaUBBhu8mza0ezgmpx iD8fyZftcXsnvePnIDUv NRiiHX76oIEiJGL9AOSa clxjZjBccGFyXGNmMSBM bU8lvT1bnPLrvxsdMhBa F8e2KMSHAPPtDOl9aZKs p3E7yIVfOBAojCAmdPWc JRf1OahuIA3bJQUmlOVc IGNlbGxzLiBUIGNlbGxz AQTof5zrCCSJOTD2U7V1 DVTwzPkuYC1qSIouIpPf FX6qYEUmFFGcGU4tFF8n rj8pmHXbqIZdQVQsbV5g EM0wAFOiPGMdFE0rMOFd HJkhDXWgqMpzYP4rSKMG MeqkL8H6MPEyLWIHVHih IFRoZXJlIGlzIFxjZjAg FHNRUDEieNbwjT8liFim qZtexbF1yWKdOKFkzSzo pHBwIRZlSAavtpGoa1xs epGfFdDBBDJlS40oxJFi j7ycOwDteLJjz4mjfQL1 XXo9IIHoWPNvJmA0r5Je tCZlUNkvzb3tCWRyOXQY CAExtMoyFJCbUBAfh9c1 pEwyyNFhq7g2bBUpDRvt cHBhOmxhbWJkYSByYXRp yhLeLnJgE4TuNTCaCkmp FkSvnh4sdWWxTB8ocPUv JB39ELqaqNSeqP1fo2Y1 gXwtCCTjrNPiAYUhh55d OiBBcyBpZGVudGlmaWVk QSR4LLMZPNMkEO6lRDbd H6b9OTAsGVK3NRAjA3hl vfDnwZYnwNP8zKLjTSVy raDxlOrjL8i9OUDhH53b dNDot9AsEW52SFUlAeC3 a8JfwRNlVEydzhmtLM2r GF6czm3wjWJahtEcw17p imuhPJBzHaLnWQ0nFOYu dGFsIGNlbGxzLlxwYXJc flxwYXIgVGhlIHJlbWFp mmatNvSnzlIguZRwKW8h rGs8YJWqxpImqfHfZN91 ND2ejlZdGBYaPJMpZOkd rqtaly5qPAszqEW9n5l6 wLPva8ykHZLnjZjdAUMd bmQgZGVicmlzLlxwYXJ9 DISCLAIMER (test code = k0xfxPNvNULdvAX5DbVj 3363) CQVzl1asy0VxyUIgrAXx ZFypqWSeteInts83jZG3 zK31HI1mOKXaMpM9THNf rxW4Uxj0RWAjWUIotUSt O304v6huf6qonsVxgWS9 oBqeNSZamyecQaM7TNul XENegtehCVi5GNdxASIe gEG0BRPqvQYuG7XiCHKl EE6zmhu7FDR9GHktEIUs EoK3EXHcpMMgLOBbmOrj TFlly662AZN7LzNcKTAp ulZfiCmxoY1yHsKfWbCQ tLUwJGP1OAA8osG9SXIz EKAikqKrs4IvKQMyyxOu tVcvwINhcUWaAf7skJUl T8CrR6zddlHimMMxgQZ9 aWNzIGRldGVybWluZWQg FlutYlC9fR3lVAY0AcST wZmgB4MiBUVptSFjlBTE TQ23ROGvZEGeXDotdUR9 GIPvt9RnGiWdbfEqsXFs zmUbOB6nVKBsqFDgvgYo QUW5RYEeJMBHPeVaMKZj w9QmCF8bQKSgmLczPTVx eR2yh6DbUYEst39wIJUr ZSBGREEgaGFzIGRldGVy bWluZWQgdGhhdCBzdWNo RZIoXBXzZR7cQRUjdoRh xAUiy7UjgKBsnlTvr5Nd wyLaVGMrNFP4VhAZmWXu mU16lNNtfy28HQJrBZHo L3NsDKQcYMDoBBvrtiQv wLxwDDXmz23ysGQhbyRr y5YayeSlSFGpL9ueTRGy fTZjsIZtv7DzaR0miQEp awPmMFH6nZUdPPIwlB6u NHCjwSnnWWEieN0uA9Ii JAxlKx6fJDVrokxuJB6t yn78OH4ejzKxQK2jfdCr XD08bgBoVtSiKOi6XIgs V7xZSNYkKDFuKEO7FPrj KgxuIOM0oeSkMIBad9Dx MQreQ0izD77jaOurhMv1 iYYujUzncHHuuAK3KOD0 cR6fSlblXMT9 Technical component was [facility] performed at (test code = [facility] Center, 2778) Department of Pathology, [address] [place] [id number], Professional component [facility] was performed at (test [facility], code = 2779) Department of Pathology, [address] [place] [id number], [facility] [id number] 17:34:50 Test Item Value Reference Range Interpretation Comments Case Report (test code = Flow Cytometry 104) Report Case: [id number] Authorizing Provider: Som Kamara III, MD Collected: 01/07/2023 03:09 PM Ordering Location: [address] Received: 01/08/2023 07:57 AM Service Pathologist: Radha Ty MD Specimen: Other Flow Interpretation (test r4rwpQJgVTRfqYS4QyUn code = 3364) BSOwx4vyb6OtaSEluESr AGredDEctbRwzc32sIH4 jJ44PK7gYPRgYgI9LMUa qkR9Vez0ACTlWWJxdLGl P448s9fis0ldurOquEX7 REYeITVnQ0TtFF7wSOXt qAJuX94ygQVeOKF5OKFf MDUqlCZjTGJlFTH4CBZf tYXiP8smLUThDE3mldtr OOnvAXnnWFPbgRR4LVZx dPAaB8PfFDWcWCgkUZGk sdp4CtMwNs0cbGWtlTaj MFxwYXJkXHBsYWluXGZz MjAgVEhPUkFDSUMgRVBJ RFVSQUwgTUFTUywgRkxP RkYKILRNMUHJYvs7BWKh clxjZjEgLSBUIENFTEwg QQ4HGTvARMlSPbWHZKWW IERJTUlOSVNIRUQgRVhQ OtFIG7fVOiAHSrDLSFCz REVURUNURUQsIFNFRSBD G75DGH1WXSEsetRxDG6T EI1PUo1JQUHFTlZFKKGS QUfzFQ1RDCxRQCoGTacf YXJ9 Flow Interpretation d4ioqPCrBPIfnJL8VfXw Comment (test code = NRApw3bny7VjfXWxqEFr 3363) EVpwwWNjpyFewi71mLH5 wF23LY0pMOWlRsI4XOFu rrU6Sue6QCHhTZClyMHz U688i2auk2juphOadDG0 hNsbESXogbqiCtP0VAsk TXEvhghbNFr9PLodXFRh fJY2WGXhuTBcJ7IfQUGi IP2pzia8IVG8YWnuDAFb QlT5TQOigGFlTXPmxJee TJgae794FVR0LwAxEWPw ynHeaIcnmU7oObZvSDFY aGUgZmxvdyBjeXRvbWV0 gtxhc9L3LTocg6kco4Ok DZPCSDEwcVymnE1qiEyx hNupelO9bDCvEEXarCpf tXJzVUPfWOnhixZbm8dk biBvZiBDRDMsIGNvbXBy jMEvbqyxFXMmdj42lX7g rAXbzPWbPgJcz1EuqD83 MYsyZ8KceCNjCJBmGBBx bGluaWNhbCBzaWduaWZp Q4NrW0Kkf2ZqbBtjvoZd hJ8gjW6oKGspWRHbU7Kp fSXeri3jYWaccxDuJGM7 oOBntwNiFJRkzY7tNdFu H52yfkCuLSRhDZW5uBSh PIEbXDYuq5TujK4aw0vl XvRyljGix0VkCUBpUaZp gOFmWMQvYd7aFRG7lKga kK25SQPpagR0NHYym61u OSAmOMWcYPSrq9UhXEBW r9Mfg3oqDNm6yFOvs99m RBNus71wPQaxyzfgSGCc bGwgbHltcGhvbWFzLCBh yrBsga6cVOsnmYH6t2Sx mUA0pNJfzEZbr1LlCOBt pc3aiMHaHPQbrBZnlQXr KCWtgAGxzY15DVW3eQ9x XXJfpW9pWIIbnz1= CPT Code(s) (test code = u0ojeCHmNBKbkHM0AtSi 3357) GBYgr7wzz3DcrNJcnOPf YIqkgKOakeZiqw68mVQ0 bN23GU3fGNAfOoL2CULi azG1Bke9VKMkSZOziZEn G822h1pek5zudiUnzPD5 bGrzPLPgloryUhF9KGmr OQZxatgwUNw0IPkaLSEs xTG4HQDakPKnV0LnFVIm SC6vlpk8ZFN2SDbaDZFv XuP3TIRydKXuIVAnqYeo DJteb475FDO9ZzWnCFOp w1F5oxNgQgEiRLVcaJE1 rgC9XBUtSU8yhckss9kt EIobSLedODWkckG7qwM1 RYXobBElG5UscZ2mJXTy GK5legugv4tjYMR7ZTvv YXJkXHBsYWluXGZzMjIg ODgxODlccGFyfQ== CLINICAL HISTORY (test q9ubcRAhPRNarPA5JwKn code = 3356) RWLha1seg8ZweJNngKHh MYggwHTrtaRwoq53nMA7 sV82TP4fJUJlAaY8KKZl hqF5Vtr0NFDjOCTpkWEv Q979x9zxq0jvhmUsxEJ2 mYtnFNJplldmGoK2LHgl DULcpnpkRUz1KBpeMRRv cQW2BJWmwXCbJ1QzFUBa XP4tmqe2KNT0XGnlYFBb SnA3GPSxqTNhXFItzNub SOand652SGZ0RgFiVILv whAzfDtroC0nXxOmGJGV yB8xTUSqWaVciTrokDSc bCBtYXNzXHBhcn0= SPECIMEN SOURCE (test i0fihYGfDMJuoUR3UpNw code = 3377) LMMjt3exw7OyaZNnfRPp TSmmcQVkxvXbso97gZU4 kU83GT8cKYYmPuW2ZOTh arP5Pxm8XHFzVOFntWJe O312r7ydk0jcyqYelLB9 dDhuLGCpjmydWxH6IMee IXTbtolfCGt7WRmsQIKd fSL3KISkhPTdM7WrMNQl KC3gefa1FVG4WYhsJGTj NqQ7XDHewCVoNWGibOgv GDzjn672UIK6BsIuILQk vhXgfWoejC8rSwDmTRRZ sX4mNCTxBdSusVyilBVc bCBtYXNzXHBhcn0= CELLULAR BIOMARKER b7vwuPNhNFVelVI4XmDy ANALYSIS (test code = JYTws1atd1JcmLGntCSp 3380) GQruaGWytlOxlp68sWS5 jS61YX5lKXNcCpS8IHPx dgO1Kje8KWXrWAYmpVKo T137n5yzp3rvwkZmiHE5 VWUuZTPgM6ReMA2eYOHd bTSnU13iqMSiVQE6BSDk PPRkiIPkROHzVNI8INLa fWSmC8sqWWRbDH8xxxsb XUzrNFdaCSCznVV8YISk mFNgD6BoDTMaPXsdUWFn sya2KhZzXr4shZTjvOjh MFxwYXJkXHBsYWluXGZz RoDvD4JzUSNEOItwk8Ks RmTaFT5jHIFcARczR1Y1 Qrnfe0RhDeNmIG4mTQ9q HCAoIEOBUAdiA1JkISsl W5OyKNgmZ9EbHVKZSCPg LCBDRDQsIENENDUsIENE MTYsIENENTcsIENENywg J4WhBTLRF7ElE0LeHGUW XndqRVxgA1HfTQylX7Ek NlxwYXJ9 IMMUNOPHENOTYPIC FINDINGS p2cixSAwNHTebHZ2EgCu (test code = 3379) NGSwm5zke1RsqAKafFUq RNfmgOPhqnOnhi71vZL0 vN52CY8xHSZqXuJ4LVIe ddO8Srx4MZEdMDDxpGUi Z467g7jgf6ysglZbeXA1 YEMrNEWkE4OzGO8tBPNn iXKuS06ydGNlYIG7AJFi RAGyvDOdFIEhWYE7HWSv dWKnI7emIMUjHW5vkgen KUkpSWojIOGgwSG3UAFm fCMkP2EkZZBsCZyyPJWp ods9SbZrVq5obWGyxMtc MFxwYXJkXHBsYWluXGZz IuXqK8CgRSQkYZYemSKi HCLjCZTbhIl7qEwoBFOj VXR0Ow2aSNMdKHMqJQ0b flx+ZJ6ovdKMpL5sBJRe v7NkHHRnpkXdUGPzeHGt fgLlUhLgY5GwZNEuXUTv WCgsKSJsH9LnQS6koLIc WWUfLRTqs3rwo4yuwcmd pH3dxUvwmHasxiDfSTJe UIlfBJ43mEZaQLC4PEYl clxjZjBccGFyXGNmMSBM xY3qzS3imMLfekzrDoMs O7q8KGEIHFVnEYq3lRAl q2B2gGBeGJExfYJfrQUx XVo3ZplxPU4jGDJkfIJg IGNlbGxzLiBUIGNlbGxz PTMot3gaSYXXKDV7D4C1 GVJljTvlCR9aEAboKsEh FI4pUYUfIMGbIG6bTO6t ep1ipCZzjIEjSDNniN6o JA9cDPVzTSWbWO0nLAXi UKkjQCBngYaiTW3kDAAD IdqiD5T7LBGhPIVCWSvg IFRoZXJlIGlzIFxjZjAg LPWHDCUnfZbhyS0dpNmv lEowxuJ3kTPjTCAvnYsn mFCkRYUhEYxvqsFiu4gi hlOdSfYNXSLqJ84qqXBe q6bwMiPltKRqb6mlaEX0 CGl2LQGkXBPsPfB3f3Qf oOGnMEmlvi3wDGWkCPXG NATzwZfwHTOnONIzs5j7 dLagmUGib1s4jOJoUQuf cHBhOmxhbWJkYSByYXRp imTrPfMbC1PxZODrUhdr MsZdub4jdAMcDT2hgVMf SM68CLvsbPTpfR5ea7T0 bIzlDJNtwVWeYKStr86a OiBBcyBpZGVudGlmaWVk ZBO8VAQBCNVkVJ1yTOab U8w5ZLQgDBV9UASfC6fu iyUheBJdtZU1hGSgDRTm iiAvlIseX5b6WMYtZ42x aXSwd3FrTF33GXNoBqK4 k8BscJFtGUeazfueNC9e KJ2mem2caKWgsvEzs34j fvdlVTYwVkWbBP6rERMt dGFsIGNlbGxzLlxwYXJc flxwYXIgVGhlIHJlbWFp tghmEaQfhmFheSYiIS5c pQs7NMJauhHjwhHfRK22 PN1vhtRrEJFnOFKqFYkn nrvxxs8dSOonxCT3k4b7 vQYbj3gkBMNzlVqiSPMs bmQgZGVicmlzLlxwYXJ9 DISCLAIMER (test code = x3txpFHeMPFceYF0RwNo 3363) LDFrn3hlj8IjiISjcVNb GHaluMIpprVtuu53dTM7 iN56OS5lDFBiRsH8LAZv ehC5Qmi3UKTbQIMgpPVr Z862l1xej2jhcfMxtMM3 nFhtXGUyicpmRgB6RYho WQIijdlvCVq2EScuDHYp nGA9UXFdbGCaC9FaODUb ZY5sjco5DZB2OYvrHJBy RfW1KHFexIBfIDMbjDdm NPszs441WJP5JdDcAFFn nyTrzPamgO2fClNdRoSF sSMmGHO8JGT7jkK1VYZu GOLclcFdj4WxYEGivtJc iVmzfBNslFYfSv9qhCKk A9UzJ7djqnKumJXiqFF1 aWNzIGRldGVybWluZWQg WdntGfT8tW0aWHV3GdUU xEdnL0ZtJTCihVIzgBZC ZX93DJBnCAPeJPpuwPX8 GIHlp5UsAgZgydBkfPAx lzOwTY0aTMWekELtybAh XOO4SPAuGOIAKaNoNGKl d3VbKU1jNPGsiEvyPMKe fJ7ui8PdPIAja83yJWEj ZSBGREEgaGFzIGRldGVy bWluZWQgdGhhdCBzdWNo DPQyWTBbKM0gIERxydTk sXLlr5YxaCLumfUvl6Ai tmRfPDDaYFV8HjUBkXMi kW33aGDscs61LXIlQQSj M5CsNUOsRDJrLIalsjUz yYzhNPEwk39sfGOrebUi f5NdpaDlXQUqR8cfKTOz mJQgsZTta0KsjX5eaLBo meEzYNM5jDCcXSChhA6o UCBspXzaCLQoiJ8tJ4Cv ZVhiNk8oPYAbvpguME0d az66CT4jblDjKG0sosUp FJ07zvFrLkQaOEq4UHhr M7kIZWMpSGMnNSM8YCen UpxkTLZ5isUlJSEvc2Kd XGwkD4tpR65cbMdvpUe9 cTJsnNkbiTZhoRK9TFY9 yC1vLmbjGEN7 Technical component was [facility]. Hodges's performed at (test code [facility] Department of Pathology, [address] [place] [id number], Professional component [facility]. Luke's was performed at ([facility], code = 2779) Department of Pathology, [address] [place] [phone], [facility] [id number] 17:34:50 Test Item Value Reference Range Interpretation Comments Case Report (test code = Flow Cytometry 104) Report Case: [id number] Authorizing Provider: Som Kamara III, MD Collected: 01/07/2023 03:09 PM Ordering Location: [address] Received: 01/08/2023 07:57 AM Service Pathologist: Radha Ty MD Specimen: Other Flow Interpretation (test t4hbbHUtHLWhfFJ5LdXg code = 3364) OAHkc9nox4FtxZEtqWCp XLwndYKuoaLwtt93sWT8 hZ89MH1nQSBrDyB8WBSa zzD1Zam8QVCsGSEdqHOf I369q1rtk7basfJgiMA2 JJLsIVQfW0CyTD8tPQId uJWpE58joYZdLUS4MDBp WEJfiGLxNVZxPHI2UVHj nJLuT6pfOBRfAF2kwypx RItrAKuyZOQgvKC8KFZq xFHoJ0BuSNLcAPcvBLTz nzu1RmTqOx4jaINebVnj MFxwYXJkXHBsYWluXGZz MjAgVEhPUkFDSUMgRVBJ RFVSQUwgTUFTUywgRkxP BrOGOADVHTIZZjq1EIQf clxjZjEgLSBUIENFTEwg XU4IFZiTETxZJaVSRGIT IERJTUlOSVNIRUQgRVhQ NpFWM4kYPnDSUrFDFBNr REVURUNURUQsIFNFRSBD R01UEL8LCPCjreToDR2X MW6BTc5EGUAAThQYEMAA DFfvRU0LPTtZELrIPipl YXJ9 Flow Interpretation l4yxtGNiMMAzqYW5ShDf Comment (test code = KNLqr1ljz5CxxMJfqXZs 3360) EMdneWJdakUqze80dNC1 cB14BM0dCIBqDrE5ILWf ziR1Mch7BQJjRFGssNRx N388y7dhq8cfpcOviQW0 cPsoAOVonezhEsS0GPwh EDVygvpcGMz3YQbeKTTk dGD1YCGmrASrP4OpYVKm BW5kcle2JZV4IDggYNXn DqS4OBRttHAkRMIgvHha TAvyd855MOJ9StPhMJKk byFgpOeleC2jHiKfJIFP aGUgZmxvdyBjeXRvbWV0 vnokw1P2BGkdt4oxn3Ii YJSRFYBhvOpevA9soPdc yKymbbM7kEKcMRQvdDgd fIHtKGJlYUsjwxLza7mz biBvZiBDRDMsIGNvbXBy iIPzlvylPEUgju74aN1f jBXktPVfSvPda5JitA58 QTvhO9FesWJcWVVxELEq bGluaWNhbCBzaWduaWZp P2BfO4Chu2ZdgVfoejTb oO4ooU1eTQknSYPzR6Jt hJAxdz7bEYicqgGhPPN5 bXPvufSaQDHtiP3rJaVg L16mlcWvTMJpIUB7gBWp DKWiVOZfo7MatF4ue5qd TeWwlrWty6YsJACqKuWs yDXtLJKwCg2xUGD0dWul rK37FAMwmjW2XACwf70n UMEpWUScHVWmo5IuULQD i8Kec8icUXm1hBWar06e SXTmf88hDIjwtidxOCDj bGwgbHltcGhvbWFzLCBh dhWoql4uEBmajCH2v3Re gCU3fMDnbMSbr4HbDHVq sv6izMVlHZItwPLkpKEt BUVggWTltZ03EYV7oY4k WOXkpD1xWDWuyl3= CPT Code(s) (test code = t9lexGJoOUOjdXB8KxRh 3357) BSKqc5hcy6WhkFSasLNo DTdicTEnkrKkzb62mWD2 rV81XW3xTBLfGyB0OIAm vaD6Iec2DUMjZLZmsLXg I379i7nat3bsrtBqzSF0 dCjxHIWukszlZbL6IZhd LJTcwojxJTc5HLnzENYn qON0GPAzvVRtO8UjCTQk DN4ildt5HQX9MDktYLKt IpR8XIHvaBLaKOFozBkg NXags973YMX9OqXqWLWa q2V1xuKqIvDfCLQhxPS8 qoU0KNMzPL2eibhjv9ed HKouUDwrTKWshdT8qiV5 FFStfFVdW8ZuuB3tCONw AE5kdvzqj4rnEFJ1RSlg YXJkXHBsYWluXGZzMjIg ODgxODlccGFyfQ== CLINICAL HISTORY (test q7xkuRLqZDYsdYF7JoBy code = 3356) NRSgf2cwq9BcbTKzbDPb CZcvvJSevuBypg81pOD1 bR45JF5jPTXwOfS0IJHt qeK1Aqa5DLYlFQYrnKBv G127w1icf8cbmnXrrEL4 eEsqSTAcdkmlEoE5THve FXNsshbvCQa7ECvuAYGl kYX8MZIopAAgF1DeSCLs JY2romj7FLJ4RJfmUVNk UvB3LKRnaIKxJWBdkPyv GAogi901UYR8FaAdPYRx whBzxFfqcK9mEsGrDXHM qT8cIYMgVoSvaVygbRKy bCBtYXNzXHBhcn0= SPECIMEN SOURCE (test z2zazMIxJZHqtJB3TiIb code = 3377) UQHte3gha6IakMGsjQCp IByeaLXgmoInpg90iGZ3 hQ61CI8tYRWxSbO2NQUt qkW1Cfq5ZZVjAISgoAAg B972b4mvo9zdjmSimIC6 oGghUWWxpdwpAaC2XAhs PPEhhueuGSm7FEwlOODz vMW1CFTbiGZmS5ZgZFWd ZD6pbdr7GWJ4BNzqVDHy TtT0UPMkuNFhMXHdoZww HJted271JMS1ZeElSHZz ojHhpWthxD9iBsHuVZHE xB5jVPOtJwYlkUvtqLZv bCBtYXNzXHBhcn0= CELLULAR BIOMARKER d1hdkBNkDKSiyAV8CuFw ANALYSIS (test code = TWRfv9xqf6QapJYzrSYu 3380) WQoasPHycfGtog31eTK1 vC60LQ7sSJXnLwZ6YZHv euO1Okk8OREqKOLciYKm I825z3ylw5bxlkJmdIF0 GKGlPPAhJ1IaWN0tFFVf bPAmV66fvYKoKPT4XKGd EJVrxCOrDSChJJL4JCXx zFIeI5evORGuVB1knczq OVmaASxbVMOrrNT5RJRw jKBiI6ZwGAWzUUxtWINj idt0QeDeTf6ccXDhwRez MFxwYXJkXHBsYWluXGZz FsImD7AnZGBDGOroe4Gs FiUsDC1cQLIwBQhaO9Y3 Erxds3FmAvCwVC9aKB7t HXCeSAGTFGtyQ1GbSOrj Y6CvENzmE2QkUETLMUGl LCBDRDQsIENENDUsIENE MTYsIENENTcsIENENywg K7VwYQZEA3RzH9YkFGVF TvxiNHxwN3SbEUnzC3Pn NlxwYXJ9 IMMUNOPHENOTYPIC FINDINGS u7spsLMeADHmiMA6FpOi (test code = 3379) OURfv1egu8QisICikOSh MBtitVWkliTpuq44qMT3 hC44GT3yHNHvEiJ1EUIg paN6Qmc5MBBmZMWukDSv P542y1cmi7ykutPvyDM1 XYApIIJaJ9XiKS0aQNTi uOToB76buCEvGCI9OVUh VQHslIEqCWDuDEV3WUWt bHAfL9yeXMZuIO4khfvv VXqnTPlkUBGekEO6MXYc xHVbF8FhHKMsNLseKJTk fdk2OeSpFy3knFVytOrh MFxwYXJkXHBsYWluXGZz ChRyY9LbIRPwMXDugTMm PJEaQYIqwKe5cXblRDMc XWM4Fs4mLAZzQXXgQI5q flx+KO7uqqPQmH7qGFPj u6VdSOEoxoXpPBYlnZKh jxViVlJuM2EdFPRmOVYd HJnjUUIxV7DsEW5lqSRk ARJwHQKly4czp5lshhzi sY7gkBngiZblxlEpBWJo AMvqNZ99rZXrNXS6TUCr clxjZjBccGFyXGNmMSBM lN3liY5kiAKusjmeOsZp G7j2OAKWTIJzMDo1hIZn a1C3eGBiZUEmeWQmoVKp RRx0NfxtYR7cSDPkjJKb IGNlbGxzLiBUIGNlbGxz FQEix4rfVQPXFSX1D9X2 XETgeOlkPQ5hUHvqZiUf JZ1lTGKaNNQoCJ9zZJ8d bk9jvFZmgKAjPSVglM6p TZ7jLBRrDKAhGV2sBKAv ELbdBWZejAuvOE5tJMMJ ZfadH0Q2RCBqSQWDFFiv IFRoZXJlIGlzIFxjZjAg DGQBBSLndWgilF1zkDka aXcrnjT5dOKsGIKkcBhn dWSlWYKiFQrqemIbl0ve ydRkEwQXMHWbB63rnMTl s0leQiUsbJIuf7zggUB6 TUh7DQCxOGJuUhC9i8Lw tWXqLIrpal4aFJWkXGUX KWWhxFkbGCYxHTZfb8e8 gXwdtSJsb6k9pGQwCCkl cHBhOmxhbWJkYSByYXRp auOyEyCiA3KhYFMgEcno NlVfto0ttXCvLL1heHKx CX50JKhowOSaqT7cs0Y7 uBnmKDGkqMYhSFKfb01f OiBBcyBpZGVudGlmaWVk DTN7OWJBYXXlTG6yTCvi D5t4BHZbLKA6LPVxG2kl xxYowTXkzWT8aXLsVNBo whWghDguY2q5XKRwE26m yAFww0HkLT56QTCvIuO8 d1XgtGPyXGmlewrdFN6i UV0htu1svTCuihOfu29p xoybTLMvQxPzUQ1xMVOy dGFsIGNlbGxzLlxwYXJc flxwYXIgVGhlIHJlbWFp tukvUwHnjfXtqABuMJ4w mMl0NNKuguOitrZaEZ53 BX6fljFhJPMsSBXnVIpl kajsyq3fENbljPX8s7v0 wQIho5mmGLDgqCoeEVWq bmQgZGVicmlzLlxwYXJ9 DISCLAIMER (test code = w0bhpIUpPNGcvKW6HxQu 3363) WRNbv2oyw9UcdJCypPGz ROmskRAfltOwph33rPZ4 pV79PS8tZJOdYtB9GDGu kqG0Znc9ZYKwPFCybGDv S626j5oce3xbauAwxKV4 zUeoEVTectlvKaS0LOct JJZzppyiPQx5WFghHRCp yGW5XEHqcQQiZ6UsIUDp XY5bpan9VEQ3HYxmWPUz XcJ1VZZywAIxBPEafRns GFogz849BTE4BlWpFYPw uqJqyAtpbG7cFvEpFvYC kSYeMIZ1RGN4kuF3UIXk UHWcskIvz8XyNQHvgtPb aOibcFIvzTMwLd5yfEIy K0GmN7mqjgZllKWhpWA8 aWNzIGRldGVybWluZWQg RazzSzX3rQ0tKNT5IdMT oVyhE3FmFULcrZWhyIKG EM64LXOrPGCtLCcvvGL2 FGHcg8ElVxWlrcGzcOPx tlKgKP7rDHWkaNLimmZm FBT3QMErINZIXwDyIUPv b8TfNW5pOEIiaWruBLSn vB0bv3HqJLBon65aMCZn ZSBGREEgaGFzIGRldGVy bWluZWQgdGhhdCBzdWNo AUDhOKWkVX5hQSAzoePr aFGch2NzpLAyllBbf6Ku axZsPVEaLNC5WsTIiQNq pN46fIZqwu54BHSwWZTh C3GaEXZvKQMoUPaiasGi jErfVOTou91sfVJvdbJn i9WzlkSuFNMvX8reLVDo gOIjqBOzq8CqvY1rfYEj ilZlRYR0zINtFPCltT9y MWYizJxbSAQyvT0iF3Lt VNtuPn1cVFLqdcskQM2b et48TJ7qpaRcLU0lpjIg RL50ykMgJrTlLRf5RZna O4kAZZMbZIQlNFI7YDpb SegfSLQ7nsFpGOLdk7Hp MVseG1rnA15glCdewHk2 vJYylTbzaBPvhSP7IXE5 jH4rZmyqAXZ7 Technical component was [facility]. Hodges's performed at (test code = [facility] 2778) Department of Pathology, [address] [place] [id number], Professional component [facility]. ke's was performed at (test [facility], code = 2779) Department of Pathology, [address] [place] [id number], [facility] [id number] 17:34:50 Test Item Value Reference Range Interpretation Comments Case Report (test code = Flow Cytometry 104) Report Case: [id number] Authorizing Provider: Som Kamara III, MD Collected: 01/07/2023 03:09 PM Ordering Location: [address] Received: 01/08/2023 07:57 AM Service Pathologist: Radha Ty MD Specimen: Other Flow Interpretation (test y3hjsGAxTTSlkOV7MoQi code = 3364) LLPgj2mkr4AamVNbqHYw IGmewPOnipPdes44uVZ9 nI37CC3wEUXiYuB3YXCe zlO6Aan0VWBvPZRmpBEg Z351j7qez9hnwxPicXU4 KZQyKUPqC5WkCL5nISRp tWXjZ18pjUGuWSV1FKSl ZGWunVOsXQGaSLC4MNBk gEVkU5ooABOuUY3apuul JLcnIFoiLTGmyNR6RCUv fWPrI7PtEGOtSEbdAXHp elm1KdQhMq0ycVQsnMcy MFxwYXJkXHBsYWluXGZz MjAgVEhPUkFDSUMgRVBJ RFVSQUwgTUFTUywgRkxP OlAYACXXTVDQRqy5XUGi clxjZjEgLSBUIENFTEwg BS4VMIdRFMnLChJDPTFD IERJTUlOSVNIRUQgRVhQ HyOOZ5eIUyERBeZAYNKn REVURUNURUQsIFNFRSBD O12HAJ3SDKHpkdTcWO4L FC7DGv2CSNAUHqVGAGQM FAksOW7ILRjNSEbGSbgw YXJ9 Flow Interpretation f4gbdIJlLSCdjHJ3VsLl Comment (test code = ZULbw5qhf6DbvZIczIJj 3365) UKhhcDJuorLhxa23iCL2 bJ73ZY3kUCYeSrB7CUDv lrJ9Vfq2UYHyKONqqWCs Y920o0fuq5mgadXgfAP6 sNslABXmkcjmNgY8VZzo QXNmkwbjWAe5OAgcAWWb rMV9FTIitWMeY8UnIJOt MR7xosm3IVD2VCzcMJSy RxZ8PEOjpDCqOBErlQof XBoju691VKA1AjQaBFNn arLdnEdvtN8kRrCyJFER aGUgZmxvdyBjeXRvbWV0 qitsx0H9ECnji1lnt4Fd WRTXQLPqoLafqB8osIso yCglpfK2bPKkZESdgRwg wHVnKTMgXJqukdGnp3qk biBvZiBDRDMsIGNvbXBy jZClvtrgLIEybr72sT7g aIUqiCPtNxZgp8XoxZ93 SEwiG3IdoHLeCXVzZLRn bGluaWNhbCBzaWduaWZp L3PrI7Juu9MwzBiaxaAd dN1nuH6rBYgqNLEaN3Ql cQBgsz7hKDmzccViCZI0 uGDdesQmXESjnW6bRyMn S68iutYaRAIuGAZ0xHVy CKTaYWHbr0GooQ4ju4mc OdPzvxIwf0XoHTJzIfAu rTLtRYSrGg7mRZW9qIvs qM36ODLvhiB0YQEza69m XQEaIEZoAOIzb5ScZSME o5Nad8szBYc4cPDrh84a ISGoj63yFXtxqhzpUBCo bGwgbHltcGhvbWFzLCBh trSbpi9gAWqqgMY2i2Ri jCO3hIZcnROhl8AlDMSg kg8qaTFcUPTazBJbiDXl KSFjyOWmyG13FJL8wV1x ARNeyK9uKJKhtr1= CPT Code(s) (test code = r4envTOtPSYxxQB3ZkUf 3357) TPNbh9nkr3UuhZHqwJDj QZqqjQSxpeQndm69sXZ0 nT21LT0vYWSfBfB7KXKm viB5Otx7DFQlTQPpwRJq P365j5sib1ywieKfkPR9 qEzkEOKzdbcyNtH0LBbe QKExlmzdJMm7AOlcBKGn mZG2VAIbaTQcW5UqZBWu VU0rpoa8NGZ4WFnyBFAy FtK8YFTefVNmTODpaPws RRspv116XMO8ArEfXZSb k4Q4hhRsGdFcOMIzeCG4 wlY7NSPuSU1fihmtk2ng SVrxMZooRCSxsgQ6yeM8 FMCmySZhH5WpzV5nELAb VZ3pizhfj7cvUHY2TGyy YXJkXHBsYWluXGZzMjIg ODgxODlccGFyfQ== CLINICAL HISTORY (test p2ffpMGdHAKigSW0OpCj code = 3356) QKNoo4eco9JieFHtpSAb FSvomMUmtxHlae77gLG8 nH82HZ0hFWQcKfN2ZIZw bfR5Uwo8EAIsIBOhsFYg U858r8vfx3giahTdvRC3 pIjnXCGxkexeMlO9TDrb BXAvhshiNSr1GCgxVQEu tFH9UDYynOMgL0YzTXZj FV8mvxx7NEX0ZKurQXEn KfT7VPDgkZLwKPKlcTpp VXqtx787LEV1JhVxPCOr hpHsuObssB7qSyLxQJBK gQ6tNEPcGdVwhQfcuSSa bCBtYXNzXHBhcn0= SPECIMEN SOURCE (test e6ivvNQsLUHadOO9UdZj code = 3377) SQQid6qxh4VyhAVloBBp KNbslIPpfzTsvb94qEV6 pV66UA2hWIUaZvF2WOFx kyY4Xem8IHOcRSLfqDKe W518d7ywv4wsnmVbdXG8 zJgxUPCqvxkdQbA5WJhx QVZdoemaMMy1YVluTNIu hMX6VPLeiJDeA6CgUJVl DM6bdll7YOJ2LBmtZGVq LdX3UKAiyBChNGNyxIdf CLosh565SON4IyUzXVXu viJzrYxshO9wWeHnUSHX dE1sYRSuRqPniUiekZLm bCBtYXNzXHBhcn0= CELLULAR BIOMARKER y9bwfYKqQFRacRY1IjTm ANALYSIS (test code = MPZul1nkn7GpdXHkiEYg 3380) KEpthZPakdXvwm65hAR3 hS59UC7dHBXfQxP2TFBc dlX4Wje0YJIlVQGxeBCx Y074a7kwr9ukgpTyiFY3 RBQdYHEdX4DaSE0vKIEp rWIhK26mmTBrNAO4VWXe OXOeeHDdNIBwPBV0YZNx iBUfN0khCNZkPY4qaqzt LJhdPAjfTCXzsNA9VJAb yEPvW3NxZKEyTJelMURb jsm2GmRhMs6ztSHzmVei MFxwYXJkXHBsYWluXGZz WkLeX8ToJREQOMkgy4Vm HjHbQG8jUYUlADxyC8Y8 Aqduj8XoFpOtDB9oWD2f CSKrZAYELTvjZ7GsJIiq T6OcAIwmE3EzFCXSVODb LCBDRDQsIENENDUsIENE MTYsIENENTcsIENENywg J8PiIQJEA5UwE9AuGJFQ VgcxNCroT9PpZLecD6Tg NlxwYXJ9 IMMUNOPHENOTYPIC FINDINGS b3swiIToEAZuzRN1QfXp (test code = 3379) MCCgm1lir9LjmTOpzQUo SBbwlODjtkYccc69dHA1 uN44CX7bIILtDgA6XIZm yqZ9Mpu9OGFfLGSdhNTw S036e3fuz5ffidHvfOO7 CRKdRYOqH3YoWK0hFARb zDIrP87vzXJtCDU9ORPr HBIruZXjEFFxLUB2WXDh uWEbI8edDNBiDM9bjqqv AWyvQAowDGOkeLS7ITRp jHLwI5NqOKXuFVqfEVVm etc3NuPqQk1fcNBqiSwb MFxwYXJkXHBsYWluXGZz ExPmW8MeJQLwQCOszYRp LCWyBAPbuZu1rTfnTHQi JUO1At7fPVJjVJQoEY3d flx+DD4yqiIQaA4kOYBt w8BkSVWvcdDmQHNoxLZi gmZeNsWdB5ZfZXNfDCMh DEivBEBmU5VfMI0mfRMz XKBvHFAck0yah5mrkhom wL7kuMoocMwbfzVoEGLa LBcuTI71bNYmKGF4URBb clxjZjBccGFyXGNmMSBM wK8yaL9bqXFbrhqkZeEf S6m1RNIOYKRfCNs7gVHd c7I2eSUdBVHchCZluDTn JGg6McnpVD9yQOHwqABk IGNlbGxzLiBUIGNlbGxz QTErv5ysJEQGDHX1G5X6 KWMnmVxlEU2bGVjhWwCr RA3fMRXgNGDfZD6nRC7x hg7xaPSwyYEgPETqsQ8j OR7kPRQmZVKnLF9ePYMf KZmoVWPdtVagIM8bOJSH IdyrU8W6GRHgJZBRRRnh IFRoZXJlIGlzIFxjZjAg FVAUJPOkbZtyuM2ylFzs iWtphvS6nWUbZQQtmFog cOVzQBPiCWqstdMrt3rd qdNzSoWPIUVrX56taJAv x9hzMtZfiRJvg4xegQV9 HUz4XVRyAUCiQmY9y8Og jEZyWCndte3kZTKeTIBZ DAUsmMmgCQYhRHLvo1b2 mGaeqMFmt2z1iWJyMHtq cHBhOmxhbWJkYSByYXRp mdDvElZuL1PsWKZnGucx ZnVavp3quPRuRT4weXIc QB47HDtcsSCzmO7vb9C4 gCrmIYVhzBWoUHCnc32u OiBBcyBpZGVudGlmaWVk KTL9TXSNDKByWQ3rOBrl J0z8GUOkKON8UHIcO1cq jzRwjWTbaVP3jOEdIIDs jbZarTiuJ1b9XYWzX88f bOFwa2FnNM26EBBrDyB1 g9FdnVErTDtgetrwRX1c BB4ykp3aiKRthiByb29a yjbfZILbQdEcGB5oNICt dGFsIGNlbGxzLlxwYXJc flxwYXIgVGhlIHJlbWFp xtnrIjHkyaSguJCoCU1r gZz2PYZvkvSqdiIwSP46 GX5rjjPwYIFgYRBmATmy pkwgao1lYNygbSZ2j4f1 gPVfu3hkNHXtoAtkVJWg bmQgZGVicmlzLlxwYXJ9 DISCLAIMER (test code = p1nlaDVnQYShiLR3FbCq 3363) TBEsf1prd3McqQWfpOIf WIudpNDemoVuiw69pYZ5 mK91PO7jKWBkMxS1ALOj roJ9Vtd9JZWtOVTuaHKo G383h2kif4umvpByvKK9 oGvsLFUtkvnrSvZ6KAyy AJJavfyzQVu0ALhfTUVm hWR8JLDvtAZpY6PlYEQr IA2sqdy4VSX7KSqoCPGn VlO5DEYviICoOPXhhAki KHvvm771XLN6UsYkRQTu vjLgmOnwiW7wYwMhDsMD sAByXEQ8JDJ4ukO6WIOt GXKitfKro9AxLCNfqbNq oTlhjNXiePRbLa5mpPHx G4QgJ5ogjdYnmGSvfKU5 aWNzIGRldGVybWluZWQg UbnfRtN1xF7dWWT3YbUH jCksD1AfCDKhkRVfuQGV XR05XCKgMDBlNSnhjXQ0 SHCyo8OjIyWmfhEgcAOt duEuTH1tKJEspNNsglJj YMZ0UWEnXZIUTxQmZDWo a4SnGI3xHFQfuAzmDZRs qS3fw5McGQMcr93qQKYh ZSBGREEgaGFzIGRldGVy bWluZWQgdGhhdCBzdWNo AXNmHZWmBD0pKLChokUy uQQap1EdkOBuznBwk0Ht dsQwSBJcAUZ6MiUDcJEb sI44eNResr18WKWjXMHk S7KzDGKtTUKiMXuvrpRs xPofXUJbk76jmHDbbvQc o3DdyuPyDKHzB1vuMBSq hIWpvRCbg0UxdQ5nrALr meMiJNU7mPWlEYAayQ0i JKGzvZsqXWXxnQ1eV9Ih ROqcWe5xOSImrwrgIY0j ng46QG4xzgMcOX0dzzVa CV80ilDcGcUiRUw6BKju S9nPRFGoYAIvMCB0JKti RlnjVLD0ibRrSOPdy0Wm HZzsV7xtB13maTzupQx0 fYLxjPnuiJDdvWI6IKT4 xM4aMkqrXPV4 Technical component was [facility]. Hodges's performed at (test code = [facility], 2778) Department of Pathology, [address] [place] [id number], Professional component [facility]. ke's was performed at ([facility], code = 2779) Department of Pathology, [address] [place] [id number], [facility] [id number] 17:34:50Flow Cytometry Report Case: [id number] Authorizing Provider: Som Kamara III, MD Collected: 01/07/2023 03:09 PM Ordering Location: [address] Received: 01/08/2023 07:57 AM Service Pathologist: Radha Ty MD Specimen: Other THORACIC EPIDURAL MASS, FLOW CYTOMETRY:- T CELL POPULATION WITH DIMINISHED EXPRESSION OF CD3 DETECTED, SEE COMMENT- NO MONOTYPIC B CELL POPULATION The flow cytometry study shows a T cell population with diminished expression of CD3, comprising approximately 12% of total cells. The clinical significance of this finding is uncertain. This result needs to be correlated with the morphologic and other features for full interpretation. Please note, Hodgkin lymphoma, some large cell lymphomas,and non-hematopoietic tumors cannot be excluded by flow cytometry. [id number] epidural massThoracic epidural massCD8, surface-kappa, CD56, surface-lambda, CD5, CD19, CD10, CD3, CD20, CD4, CD45, CD16, CD57, CD7, CD2, TCRa/b, TCRg/d, CD25, RF81Xtxtymol Viability: 73.0% Number of Events Acquired: [id number] The following populations are identified:Lymphocytes: Bright CD45+ lymphocytes comprise 87.7% of total cells. T cells show a CD4:CD8 ratio of 5.3 and normal expression of the blum T cell antigens CD2,CD5 and CD7. There is a T cell population with diminished expression of CD3 comprising duingkeffzpdr02% of total cells. B cells are polytypic with a kappa:lambda ratio of 1.6 . Myeloid/monocytic populations: As identified by CD45 and light scatter characteristics, granulocytes comprise 5.5% of total cells, and monocytes comprise 1.5% of total cells. The remaining events analyzed represent nonviable cells, non-hematolymphoid cells, and debris.These tests were developed and their performance characteristics determined by [facility]. They have not been cleared or approved by theU.S. Food and Drug Administration. The FDA has determined that such clearance or approval is not necessary. It should not be regarded as investigational or for research. This laboratory is certified under the Clinical Laboratory Improvement Amendments of 1988 ("CLIA") as qualified to perform high-complexity clinical testing.[facility], Department of Pathology, [address] [place] [address], [facility], [facility] of [facility], [address] [place] [address], POCT-GLUCOSE [id number] 16:53:32 Test Item Value Reference Range Interpretation Comments POC-GLUCOSE METER 90 mg/dL 70-110 : TESTED A T [facility] 6720 (PAMELA) (test code [facility], = 1538) [address]: [employer] Supervisor/Techni ira ID = [id number] for Marce Rios U/S, TESTICULAR (SCROTUM)2023-01-08 16:46:00Reason for exam:->[facility] : 1990 Sex: MFINAL REPORT U/S, TESTICULAR (SCROTUM) CLINICAL HISTORY: Cancer work up COMPARISON: None. TECHNIQUE: Real time grayscale ultrasound, color, and spectral Doppler imaging was performed. FINDINGS: Right testis:Size = 4.4 x 1.7 x 2.7 cmAppearance: Normal with no focal massDoppler flow: Normal Right epididymis: Normal Left testis:Size = 3.9 x 1.7 x 2.3 cmAppearance: Normal with no focal massDoppler flow: Normal Left epididymis: Normal Varicocele: None Hydrocele: None IMPRESSION: Normal scrotal ultrasound. Signed: Sharifa Sherman Verified Date/Time: 01/08/2023 16:46:03 ALPHA FETOPROTEIN (AFP), TUMOR [id number] 12:28:31 Test Item Value Reference Range Interpretation Comments ALPHA-FETOPROTEIN (BEAKER) (test code < ng/mL <10.0 = 1094) [employer] Supervisor ID - BSHCG, QUANTITATIVE, [id number] 11:39:42 Test Item Value Reference Range Interpretation Comments GONADOTROPIN, CHORIONIC (HCG) QUANT < mIU/mL (BEAKER) (test code = 649) Non- Females: <10 mIU/mL Females: Gestation Age Reference Range(mIU/mL) 0.2-1 Week 5-50 1-2 Weeks 50-500 2-3 Weeks 100-5,000 3-4 Weeks 500-10,000 4-5 Weeks 1,000-50,000 5-6 Weeks 10,000-100,000 6-8 Weeks 15,000- 200,000 2-3 Months 10,000-100,000 [employer] Supervisor ID - EUSEBIO GLACTATE DEHYDROGENASE (LDH)2023-01-08 11:31:43 Test Item Value Reference Range Interpretation Comments LACTATE DEHYDROGENASE (BEAKER) (test 141 U/L 125-220 code = 635) [employer] Supervisor ID - EUSEBIO GALKALINE [id number] 11:31:42 Test Item Value Reference Range Interpretation Comments ALKALINE PHOSPHATASE (BEAKER) (test 46 U/L 40-150 code = 346) [employer] Supervisor ID - EUSEBIO GPOCT-GLUCOSE [id number] 11:02:11 Test Item Value Reference Range Interpretation Comments POC-GLUCOSE METER 117 mg/dL 70-110 H : TESTED A T [facility] 6720 (BEAKER) (test code [facility], = 1538) [id number]: [employer] Supervisor/Techni ira ID = [id number] for Sabina Riosline POCT-GLUCOSE [id number] 07:46:50 Test Item Value Reference Range Interpretation Comments POC-GLUCOSE METER 189 mg/dL 70-110 H : TESTED A T [facility] 6720 (BEAKER) (test code [facility], = 1538) [address]119[address]: [employer] Supervisor/Techni ira ID = [id number] for Romeot Sabina wahlMarce BASIC METABOLIC [id number] 05:55:35 Test Item Value Reference Range Interpretation Comments SODIUM (BEAKER) 139 meq/L 136-145 (test code = 381) POTASSIUM 4.1 meq/L 3.5-5.1 (BEAKER) (test code = 379) CHLORIDE (BEAKER) 106 meq/L 98-107 (test code = 382) CO2 (BEAKER) 26 meq/L 22-29 (test code = 355) BLOOD UREA 10 mg/dL 7-21 NITROGEN (BEAKER) (test code = 354) CREATININE 0.75 mg/dL 0.57-1.25 (BEAKER) (test code = 358) GLUCOSE RANDOM 117 mg/dL 70-105 H (BEAKER) (test code = 652) CALCIUM (BEAKER) 8.8 mg/dL 8.4-10.2 (test code = 697) EGFR (BEAKER) 122 Interpretatio n of eGFR (test code = mL/min/1.73 values Stage De scription 1092) sq m Result G1 Vickie l or high >=90 G2 Mildly decreased 60-89 G3a Mildl y to moderately 45-5 9 G3b Moderately to s everely 30-44 G4 Severl y decreased 15-29 G5 Kidne y failure <15Reported eGF R is based on the CKD-EPI 202 equation that d oes not use a race coefficientEsti mated GFR is not as accur ate as Creatinine Yin mitchell in predicting glom erular filtration rate . Estimated GFR is not appl icable for dialysis patien ts [employer] Supervisor ID - EUSEBIO [id number] 05:55:35 Test Item Value Reference Range Interpretation Comments MAGNESIUM (BEAKER) (test code = 1.8 mg/dL 1.6-2.6 627) [employer] Supervisor ID - EUSEBIO GCBC W/PLT COUNT & AUTO [id number] 05:39:24 Test Item Value Reference Range Interpretation Comments WHITE BLOOD CELL COUNT 10.8 K/ L 3.5-10.5 H (BEAKER) (test code = 775) RED BLOOD CELL COUNT 3.65 M/ L 4.63-6.08 L (BEAKER) (test code = 761) HEMOGLOBIN (BEAKER) 11.2 GM/DL 13.7-17.5 L Verified with (test code = 410) 121120 HEMATOCRIT (BEAKER) 32.3 % 40.1-51.0 L (test code = 411) MEAN CORPUSCULAR VOLUME 89 fL 79-92 (BEAKER) (test code = 753) MEAN CORPUSCULAR 30.7 pg 25.7-32.2 HEMOGLOBIN (BEAKER) (test code = 751) MEAN CORPUSCULAR 34.7 GM/DL 32.3-36.5 HEMOGLOBIN CONC (BEAKER) (test code = 752) RED CELL DISTRIBUTION 12.4 % 11.6-14.4 WIDTH (BEAKER) (test code = 412) PLATELET COUNT (BEAKER) 201 K/CU MM 150-450 (test code = 756) MEAN PLATELET VOLUME 9.6 fL 9.4-12.4 (BEAKER) (test code = 754) NUCLEATED RED BLOOD 0 /100 WBC 0-0 CELLS (BEAKER) (test code = 413) NEUTROPHILS RELATIVE 83 % PERCENT (BEAKER) (test code = 429) LYMPHOCYTES RELATIVE 8 % PERCENT (BEAKER) (test code = 430) MONOCYTES RELATIVE 9 % PERCENT (BEAKER) (test code = 431) EOSINOPHILS RELATIVE 0 % PERCENT (BEAKER) (test code = 432) BASOPHILS RELATIVE 0 % PERCENT (BEAKER) (test code = 437) NEUTROPHILS ABSOLUTE 8.90 K/ L 1.78-5.38 H COUNT (BEAKER) (test code = 670) LYMPHOCYTES ABSOLUTE 0.84 K/ L 1.32-3.57 L COUNT (BEAKER) (test code = 414) MONOCYTES ABSOLUTE 0.95 K/ L 0.30-0.82 H COUNT (BEAKER) (test code = 415) EOSINOPHILS ABSOLUTE 0.00 K/ L 0.04-0.54 L COUNT (BEAKER) (test code = 416) BASOPHILS ABSOLUTE 0.01 K/ L 0.01-0.08 COUNT (BEAKER) (test code = 417) IMMATURE 0.70 % 0.00-1.00 GRANULOCYTES-RELATIVE PERCENT (BEAKER) (test code = 2801) POCT-GLUCOSE [id number] 22:39:29 Test Item Value Reference Range Interpretation Comments POC-GLUCOSE METER 148 mg/dL 70-110 H : TESTED A T [facility] 6720 (BEAKER) (test code = JENNIFERSANDRA Leone [facility], 1538) [address]: [employer] Supervisor/Techni ira ID = [id number] for TRIPP ANGELES POCT-GLUCOSE [id number] 18:54:51 Test Item Value Reference Range Interpretation Comments POC-GLUCOSE METER 119 mg/dL 70-110 H : TESTED A T [facility] 6720 (BEAKER) (test code [facility], = 1538) [address]: [employer] Supervisor/Techni ira ID = [id number] for Marce Rios RAD, SPINE, THORACIC, 1 [id number] 16:01:00Reason for exam:->thoracic laminectomy[facility] : 1990 Sex: MFINAL REPORT Thoracic spine one view: HISTORY: Thoracic laminectomy The imageis centered over the mid and upper thorax. An endotracheal tube is noted in place. A transversely oriented needle overlies the T1 vertebral body. The visualized bony structures appear intact. Signed: Nataliya Ross MDReport Verified Date/Time: 01/07/2023 16:01:36 POCT-GLUCOSE [id number] 12:08:13 Test Item Value Reference Range Interpretation Comments POC-GLUCOSE METER 126 mg/dL 70-110 H : TESTED A T [facility] 6720 (BEAKER) (test code MARCELINO [facility], = 1538) [address]: [employer] Supervisor/Techni ira ID = [id number] for Marce Rios CT, BRAIN, [id number] 07:37:00Unlisted Reason for Exam - Click Yes and Enter Reason Below->No [facility] : 1990 Sex: MFINAL REPORT CT, BRAIN, WITHOUT \\T\\ WITH CONTRAST CLINICAL INDICATION: Cancerof unknown primary, staging COMPARISON: None TECHNIQUE: Axial CT imaging of the brain and skull before and after intravenous administration of IV contrast. Coronal and sagittal reformats obtained. DOSEREDUCTION: Dose modulation, iterative reconstruction, and/or weight-based adjustment of the mA/kV was utilized to reduce the radiation dose to as low as reasonably achievable. FINDINGS:Cerebral parenchyma: No evidence of acute intracranial hemorrhage, mass, midline shift or pathologic enhancement. No evidence of vasogenic edema. No acute infarct.Cerebellum and brainstem: No acute findings. No pathologic enhancement.Ventricles: Normal volume.Extra-axial spaces: Unremarkable. Calvarium and skull base:Intact.Paranasal sinuses and mastoid air cells: Visible chambers are clear.Orbital contents: Included portions unremarkable. IMPRESSION: No acute intracranial abnormality. No intracranial metastasis identified. If there is persistent clinical concern for intracranial pathology, MR examination is recommended for further characterization. Signed: Jose Clarke MDReport Verified Date/Time: 01/07/2023 07:37:50 CT, [id number] 07:30:00Unlisted Reason for Exam - Click Yes and Enter Reason Below- >NoProtocol Please Specify:->Standard ProtocolWill this procedure require oral contrast?->No [facility] : 1990 Sex: MFINAL REPORT TECHNIQUE: CT of the chest, abdomen, and pelvis WITH intravenouscontrast and WITHOUT oral contrast. Dose modulation, iterative reconstruction, and/or weight-based adjustment of the mA/kV was utilized to reduce the radiation dose to as low as reasonably achievable. INDICATION: Cancer of unknown primary, staging. COMPARISON: Outside facility MRI from 01/06/2023. FINDINGS: LINES/TUBES: None. LUNGS AND AIRWAYS: Mild bibasilar atelectasis. PLEURA: There is masslike enhancement along the right basilar pleura and left upper lung pleura. This likely extends from mass is either within or adjacent to the bones. Specifically, the left apical pleural-based mass extends froman extensive spinal canal mass which leads to severe canal stenosis. HEART AND MEDIASTINUM: The visualized thyroid gland is normal. The heart and pericardium are within normal limits. There are multiple masses in the anterior mediastinum, including a rounded mass in the anterior mediastinum on axial image 19 which measures 1.9 x 1.7 cm. HEPATOBILIARY: No focal hepatic lesions. Gallbladder is unremarkable. No biliary ductal dilatation.SPLEEN: No splenomegaly.PANCREAS: No focal masses or ductal dilatation. ADRENALS: No adrenal nodules.KIDNEYS/URETERS: No hydronephrosis, stones, or masses.PELVIC ORGANS/BLADDER: Unremarkable. PERITONEUM/RETROPERITONEUM: No free air or fluid.LYMPH NODES: No lymphadenopa thy.VESSELS: Unremarkable. GI TRACT: No distention or wall thickening. Diverticulum of the second portion of the duodenum. The appendix is normal. BONES AND SOFT TISSUES: A soft tissue mass is located immediately anterior to the sternal with heterogeneous sclerosis of the sternal manubrium and upper st ernal body. This mass measures 13.1 x 5.7 x 6.3 cm. The spine was better evaluated on the recent MRIs. However, there is a mild pathologic fracture of T9 with a mild amount of intracanal tumor at this level which extends into the left T9-T10 neural foramina. Additional, extensive tumor in the spinal canal is seen at the T3 level and results in severe canal stenosis. There is heterogeneous lucency within the T10 vertebral body, consistent with metastatic disease. The heterogeneity of the L5 vertebralbody is most consistent with involvement by the malignancy. IMPRESSION: 1.There are masses in the anterior mediastinum, superficial to the sternum, the paraspinal regions, the vertebral bodies and sternum, the spinal canal, and along both pleural. While this is nonspecific, it is most concerning for leukemia/lymphoma. 2.A biopsy of the mass superficial to the sternum is recommended for definitive diagnosis. 3.There is severe canal stenosis by intracanal extension of tumor at the T3 level. There is additional intracanal extension of tumor at the T8-T9 level. 4.Unchanged pathologic compression fracture of T9 vertebral body. Signed: Kalyan Membreno MDReport Verified Date/Time: 01/07/2023 07:30:33 Reading Location: [facility] Diagnostic Imaging Reading Room - [place] [address] CT, CHEST, WITH [id number] 07:30:00Unlisted Reason for Exam - Click Yes and Enter Reason Below->No [facility] : 1990 Sex: MFINAL REPORT TECHNIQUE: CT of the chest, abdomen, and pelvis WITH intravenouscontrast and WITHOUT oral contrast. Dose modulation, iterative reconstruction, and/or weight-based adjustment of the mA/kV was utilized to reduce the radiation dose to as low as reasonably achievable. INDICATION: Cancer of unknown primary, staging. COMPARISON: Outside facility MRI from 01/06/2023. FINDINGS: LINES/TUBES: None. LUNGS AND AIRWAYS: Mild bibasilar atelectasis. PLEURA: There is masslike enhancement along the right basilar pleura and left upper lung pleura. This likely extends from mass is either within or adjacent to the bones. Specifically, the left apical pleural-based mass extends froman extensive spinal canal mass which leads to severe canal stenosis. HEART AND MEDIASTINUM: The visualized thyroid gland is normal. The heart and pericardium are within normal limits. There are multiple masses in the anterior mediastinum, including a rounded mass in the anterior mediastinum on axial image 19 which measures 1.9 x 1.7 cm. HEPATOBILIARY: No focal hepatic lesions. Gallbladder is unremarkable. No biliary ductal dilatation.SPLEEN: No splenomegaly.PANCREAS: No focal masses or ductal dilatation. ADRENALS: No adrenal nodules.KIDNEYS/URETERS: No hydronephrosis, stones, or masses.PELVIC ORGANS/BLADDER: Unremarkable. PERITONEUM/RETROPERITONEUM: No free air or fluid.LYMPH NODES: No lymphadenopa thy.VESSELS: Unremarkable. GI TRACT: No distention or wall thickening. Diverticulum of the second portion of the duodenum. The appendix is normal. BONES AND SOFT TISSUES: A soft tissue mass is located immediately anterior to the sternal with heterogeneous sclerosis of the sternal manubrium and upper st ernal body. This mass measures 13.1 x 5.7 x 6.3 cm. The spine was better evaluated on the recent MRIs. However, there is a mild pathologic fracture of T9 with a mild amount of intracanal tumor at this level which extends into the left T9-T10 neural foramina. Additional, extensive tumor in the spinal canal is seen at the T3 level and results in severe canal stenosis. There is heterogeneous lucency within the T10 vertebral body, consistent with metastatic disease. The heterogeneity of the L5 vertebralbody is most consistent with involvement by the malignancy. IMPRESSION: 1.There are masses in the anterior mediastinum, superficial to the sternum, the paraspinal regions, the vertebral bodies and sternum, the spinal canal, and along both pleural. While this is nonspecific, it is most concerning for leukemia/lymphoma. 2.A biopsy of the mass superficial to the sternum is recommended for definitive diagnosis. 3.There is severe canal stenosis by intracanal extension of tumor at the T3 level. There is additional intracanal extension of tumor at the T8-T9 level. 4.Unchanged pathologic compression fracture of T9 vertebral body. Signed: Kalyan Membreno MDReport Verified Date/Time: 01/07/2023 07:30:33 Reading Location: [facility] Diagnostic Imaging Reading Room - [place] [address] [id number] 07:08:13 Test Item Value Reference Range Interpretation Comments PARTIAL THROMBOPLASTIN TIME 28.6 seconds 22.5-36.0 (BEAKER) (test code = 760) SARS-CoV2/RT-PCR (Asymptomatic ONLY)2023-01-07 07:01:21 Test Item Value Reference Interpretation Comments Range SARS-COV2/RT-PCR Positive Negative AA The SARS-Co V-2 (test code = target nucleic 96266-2) acids are detec denise in this specime n. The presence SARS-CoV-2 nucl eic acids cannot ru le out co-infectio ns or disease caus ed by other viral or bacterial pathogens. As w ith any molecular t est, mutations withi n the target melani ons of the Xpert Xp ress SARS-CoV-2 test could affect pr mago and/or probe binding resulti ng in failure to detect the pres ence of virus or the virus being detected less predictably. Fa lse negative result s may occur if vi chasidy is present at levels below th e analytical limi t of detection. This SARS CoV-2 test is a rapid, real-t jose luis RT-PCR test intended for th e qualitative detection of nucleic acid fr om SARS-CoV-2 in a nasopharyngeal swab specimen collec denise from individual s suspected of COVID-19 by the ir healthcare provider. Resul ts from the Xpert Xpress SARS-CoV -2 test should be correlated with the clinical histor y, epidemiological data, and other data available to the clinician evaluating the patient. Viral nucleic acid ma y persist in vivo , independent of virus viability . Detection of analyte target( s) does not imply that the correspondi ng virus(es) are infectious or a re the causative agents for clin ical symptoms. COLUMBA (test code = This test has been COLUMBA) authorized by FDA under an EUA for use by authorized laboratories. This test is only authorized for the duration of the declaration that circumstances exist justifying the authorization of emergency use of in vitro diagnostic tests for detection and/or diagnosis of COVID-19 under Section 564(b)(1) of the Federal Food, Drug and Cosmetic Act, 21 U.S.C. 360bbb-3(b)(1), unless the authorization is terminated or revoked sooner. Fact Sheet for Healthcare Providers: https://www.[employer]/Documents/Xp ert%20Xpress%20SAR S%20CoV-2/Fact%20S heets/3023802%20S ARS-COV-2%20HEALTH CARE%20PROVIDERS%2 0FACT%20SHEET.pdf Fact Sheet for Healthcare Patients: https://www.[employer]/Documents/Xp ert%20Xpress%20SAR S%20CoV-2/Fact%20S heets/3023801%20S ARS-COV-2%20PATIEN T%20FACT%20SHEET.p df Lab Interpretation Abnormal (test code = 79338-6) [facility] 07:01:21 Test Item Value Reference Interpretation Comments Range SARS-COV2/RT-PCR Positive Negative AA The SARS-Co V-2 (test code = target nucleic 64345-7) acids are detec denise in this specime n. The presence SARS-CoV-2 nucl eic acids cannot ru le out co-infectio ns or disease caus ed by other viral or bacterial pathogens. As w ith any molecular t est, mutations withi n the target melani ons of the Xpert Xp ress SARS-CoV-2 test could affect pr mago and/or probe binding resulti ng in failure to detect the pres ence of virus or the virus being detected less predictably. Fa lse negative result s may occur if vi chasidy is present at levels below th e analytical limi t of detection. This SARS CoV-2 test is a rapid, real-t jose luis RT-PCR test intended for th e qualitative detection of nucleic acid fr om SARS-CoV-2 in a nasopharyngeal swab specimen collec denise from individual s suspected of COVID-19 by the ir healthcare provider. Resul ts from the Xpert Xpress SARS-CoV -2 test should be correlated with the clinical histor y, epidemiological data, and other data available to the clinician evaluating the patient. Viral nucleic acid ma y persist in vivo , independent of virus viability . Detection of analyte target( s) does not imply that the correspondi ng virus(es) are infectious or a re the causative agents for clin ical symptoms. COLUMBA (test code = This test has been COLUMBA) authorized by FDA under an EUA for use by authorized laboratories. This test is only authorized for the duration of the declaration that circumstances exist justifying the authorization of emergency use of in vitro diagnostic tests for detection and/or diagnosis of COVID-19 under Section 564(b)(1) of the Federal Food, Drug and Cosmetic Act, 21 U.S.C. 360bbb-3(b)(1), unless the authorization is terminated or revoked sooner. Fact Sheet for Healthcare Providers: https://www.[employer]/Documents/Xp ert%20Xpress%20SAR S%20CoV-2/Fact%20S heets/599-4228%20S ARS-COV-2%20HEALTH CARE%20PROVIDERS%2 0FACT%20SHEET.pdf Fact Sheet for Healthcare Patients: https://www.[employer]/Documents/Xp ert%20Xpress%20SAR S%20CoV-2/Fact%20S heets/302-3801%20S ARS-COV-2%20PATIEN T%20FACT%20SHEET.p df Lab Interpretation Abnormal (test code = 64473-5) [facility]23-01-07 07:01:21 Test Item Value Reference Interpretation Comments Range SARS-COV2/RT-PCR Positive Negative AA The SARS-Co V-2 (test code = target nucleic 69727-7) acids are detec denise in this specime n. The presence SARS-CoV-2 nucl eic acids cannot ru le out co-infectio ns or disease caus ed by other viral or bacterial pathogens. As w ith any molecular t est, mutations withi n the target melani ons of the Xpert Xp ress SARS-CoV-2 test could affect pr mago and/or probe binding resulti ng in failure to detect the pres ence of virus or the virus being detected less predictably. Fa lse negative result s may occur if vi chasidy is present at levels below th e analytical limi t of detection. This SARS CoV-2 test is a rapid, real-t jose luis RT-PCR test intended for th e qualitative detection of nucleic acid fr om SARS-CoV-2 in a nasopharyngeal swab specimen collec denise from individual s suspected of COVID-19 by the ir healthcare provider. Resul ts from the Xpert Xpress SARS-CoV -2 test should be correlated with the clinical histor y, epidemiological data, and other data available to the clinician evaluating the patient. Viral nucleic acid ma y persist in vivo , independent of virus viability . Detection of analyte target( s) does not imply that the correspondi ng virus(es) are infectious or a re the causative agents for clin ical symptoms. COLUMBA (test code = This test has been COLUMBA) authorized by FDA under an EUA for use by authorized laboratories. This test is only authorized for the duration of the declaration that circumstances exist justifying the authorization of emergency use of in vitro diagnostic tests for detection and/or diagnosis of COVID-19 under Section 564(b)(1) of the Federal Food, Drug and Cosmetic Act, 21 U.S.C. 360bbb-3(b)(1), unless the authorization is terminated or revoked sooner. Fact Sheet for Healthcare Providers: https://www.[employer]/Documents/Xp ert%20Xpress%20SAR S%20CoV-2/Fact%20S heets/302-3802%20S ARS-COV-2%20HEALTH CARE%20PROVIDERS%2 0FACT%20SHEET.pdf Fact Sheet for Healthcare Patients: https://www.[employer]/Documents/Xp ert%20Xpress%20SAR S%20CoV-2/Fact%20S heets/302-3801%20S ARS-COV-2%20PATIEN T%20FACT%20SHEET.p df Lab Interpretation Abnormal (test code = 59983-7) [facility]23-01-07 07:01:21 Test Item Value Reference Interpretation Comments Range SARS-COV2/RT-PCR Positive Negative AA The SARS-Co V-2 (test code = target nucleic 37016-7) acids are detec denise in this specime n. The presence SARS-CoV-2 nucl eic acids cannot ru le out co-infectio ns or disease caus ed by other viral or bacterial pathogens. As w ith any molecular t est, mutations withi n the target melani ons of the Xpert Xp ress SARS-CoV-2 test could affect pr mago and/or probe binding resulti ng in failure to detect the pres ence of virus or the virus being detected less predictably. Fa lse negative result s may occur if vi chasidy is present at levels below th e analytical limi t of detection. This SARS CoV-2 test is a rapid, real-t jose luis RT-PCR test intended for th e qualitative detection of nucleic acid fr om SARS-CoV-2 in a nasopharyngeal swab specimen collec denise from individual s suspected of COVID-19 by the ir healthcare provider. Resul ts from the Xpert Xpress SARS-CoV -2 test should be correlated with the clinical histor y, epidemiological data, and other data available to the clinician evaluating the patient. Viral nucleic acid ma y persist in vivo , independent of virus viability . Detection of analyte target( s) does not imply that the correspondi ng virus(es) are infectious or a re the causative agents for clin ical symptoms. COLUMBA (test code = This test has been COLUMBA) authorized by FDA under an EUA for use by authorized laboratories. This test is only authorized for the duration of the declaration that circumstances exist justifying the authorization of emergency use of in vitro diagnostic tests for detection and/or diagnosis of COVID-19 under Section 564(b)(1) of the Federal Food, Drug and Cosmetic Act, 21 U.S.C. 360bbb-3(b)(1), unless the authorization is terminated or revoked sooner. Fact Sheet for Healthcare Providers: https://www.[employer]/Documents/Xp ert%20Xpress%20SAR S%20CoV-2/Fact%20S heets/302-3802%20S ARS-COV-2%20HEALTH CARE%20PROVIDERS%2 0FACT%20SHEET.pdf Fact Sheet for Healthcare Patients: https://www.[employer]/Documents/Xp ert%20Xpress%20SAR S%20CoV-2/Fact%20S heets/302-3801%20S ARS-COV-2%20PATIEN T%20FACT%20SHEET.p df Lab Interpretation Abnormal (test code = 77265-5) [facility]23-01-07 07:01:21 Test Item Value Reference Interpretation Comments Range SARS-COV2/RT-PCR Positive Negative AA The SARS-Co V-2 (test code = target nucleic 50979-8) acids are detec denise in this specime n. The presence SARS-CoV-2 nucl eic acids cannot ru le out co-infectio ns or disease caus ed by other viral or bacterial pathogens. As w ith any molecular t est, mutations withi n the target melani ons of the Xpert Xp ress SARS-CoV-2 test could affect pr mago and/or probe binding resulti ng in failure to detect the pres ence of virus or the virus being detected less predictably. Fa lse negative result s may occur if vi chasidy is present at levels below th e analytical limi t of detection. This SARS CoV-2 test is a rapid, real-t jose luis RT-PCR test intended for th e qualitative detection of nucleic acid fr om SARS-CoV-2 in a nasopharyngeal swab specimen collec denise from individual s suspected of COVID-19 by the ir healthcare provider. Resul ts from the Xpert Xpress SARS-CoV -2 test should be correlated with the clinical histor y, epidemiological data, and other data available to the clinician evaluating the patient. Viral nucleic acid ma y persist in vivo , independent of virus viability . Detection of analyte target( s) does not imply that the correspondi ng virus(es) are infectious or a re the causative agents for clin ical symptoms. COLUMBA (test code = This test has been COLUMBA) authorized by FDA under an EUA for use by authorized laboratories. This test is only authorized for the duration of the declaration that circumstances exist justifying the authorization of emergency use of in vitro diagnostic tests for detection and/or diagnosis of COVID-19 under Section 564(b)(1) of the Federal Food, Drug and Cosmetic Act, 21 U.S.C. 360bbb-3(b)(1), unless the authorization is terminated or revoked sooner. Fact Sheet for Healthcare Providers: https://www.[employer]/Documents/Xp ert%20Xpress%20SAR S%20CoV-2/Fact%20S heets/302-3802%20S ARS-COV-2%20HEALTH CARE%20PROVIDERS%2 0FACT%20SHEET.pdf Fact Sheet for Healthcare Patients: https://www.[employer]/Documents/Xp ert%20Xpress%20SAR S%20CoV-2/Fact%20S heets/302-3801%20S ARS-COV-2%20PATIEN T%20FACT%20SHEET.p df Lab Interpretation Abnormal (test code = 45749-8) [facility]2023-01-07 07:01:21 Test Item Value Reference Range Interpretation Comments SARS-COV2/RT-PCR Positive Negative AA The SARS-Co V-2 target (test code = nucleic acids a re detected [id number]) in this specime n. The presence SARS-C oV-2 nucleic acids cannot ru le out co-infections o r disease caused by other viral or bacterial patho gens. As with any molecular t est, mutations withi n the target regions of the Xpert Xpress SARS-CoV-2 test could affect primer and/or p robe binding resulting in fa ilure to detect the pres ence of virus or the virus be ing detected less predictabl y. False negative result s may occur if virus is pre sent at levels below th e analytical limit of detect ion. This SARS CoV-2 test is a rapid, real-time RT-PC R test intended for th e qualitative detection of nu cleic acid from SARS-CoV-2 in a nasopharyngeal swab specimen collected from individuals suspected of CO VID-19 [facility]. Results from th e Xpert Xpress SARS-CoV -2 test should be corre lated with the clinical hi story, epidemiological data, and other data avai lable to the clinician evalu ating the patient. Viral nucleic acid may persist in vivo, independent of virus viability. Dete ction of analyte target( s) does not imply that the corresponding virus(es) are i nfectious or are the causati ve agents for clinical sympto ms. This test has been authorized by FDA under an EUA for use by authorized laboratories. This test is only authorized for the duration of the declaration that circumstances exist justifying the authorization of emergency use of in vitro diagnostic tests for detection and/or diagnosis of COVID-19 under Section 564(b)(1) of the Federal Food, Drug and Cosmetic Act, 21 U.S.C. 360bbb-3(b)(1), unless the authorization is terminated or revoked sooner. Fact Sheet for Healthcare Providers: https://www.iBox[employer] m/Documents/Xpert%20Xpress%20SARS%20CoV-2/Fact%20Sheets/512-9616%85GSWF-UPP-5%20 HEALTHCARE%20PROVIDERS%20FACT%20SHEET.pdf Fact Sheet for Healthcare Patients: https://www.AppEnsure/Documents/Xpert%20Xp ress%20SARS%20CoV-2/Fact%20Sheets/302-8988%18GFXK-DAS-3%20PATIENT%20FACT%20SHEET .pdfBASI METABOLIC [id number] 06:56:51 Test Item Value Reference Range Interpretation Comments SODIUM (BEAKER) 132 meq/L 136-145 L (test code = 381) POTASSIUM 4.4 meq/L 3.5-5.1 (BEAKER) (test code = 379) CHLORIDE (BEAKER) 102 meq/L 98-107 (test code = 382) CO2 (BEAKER) 23 meq/L 22-29 (test code = 355) BLOOD UREA 16 mg/dL 7-21 NITROGEN (BEAKER) (test code = 354) CREATININE 0.79 mg/dL 0.57-1.25 (BEAKER) (test code = 358) GLUCOSE RANDOM 130 mg/dL 70-105 H (BEAKER) (test code = 652) CALCIUM (BEAKER) 9.3 mg/dL 8.4-10.2 (test code = 697) EGFR (BEAKER) 120 Interpretatio n of eGFR (test code = mL/min/1.73 values Stage De scription 1092) sq m Result G1 Vickie l or high >=90 G2 Mildly decreased 60-89 G3a Mildl y to moderately 45-5 9 G3b Moderately to s everely 30-44 G4 Severl y decreased 15-29 G5 Kidney failure <15Reported eGF R is based on the CKD-EPI 2020 equation that d oes not use a race coefficientEsti mated GFR is not as accur ate as Creatinine Yin mitchell in predicting glom erular filtration rate . Estimated GFR is not appl icable for dialysis patien ts [employer] Supervisor ID - ADMINCBC W/PLT COUNT & AUTO [id number] 06:44:38 Test Item Value Reference Range Interpretation Comments WHITE BLOOD CELL COUNT (BEAKER) 9.4 K/ L 3.5-10.5 (test code = 775) RED BLOOD CELL COUNT (BEAKER) 4.83 M/ L 4.63-6.08 (test code = 761) HEMOGLOBIN (BEAKER) (test code = 14.7 GM/DL 13.7-17.5 410) HEMATOCRIT (BEAKER) (test code = 42.5 % 40.1-51.0 411) MEAN CORPUSCULAR VOLUME (BEAKER) 88 fL 79-92 (test code = 753) MEAN CORPUSCULAR HEMOGLOBIN 30.4 pg 25.7-32.2 (BEAKER) (test code = 751) MEAN CORPUSCULAR HEMOGLOBIN CONC 34.6 GM/DL 32.3-36.5 (BEAKER) (test code = 752) RED CELL DISTRIBUTION WIDTH 12.0 % 11.6-14.4 (BEAKER) (test code = 412) PLATELET COUNT (BEAKER) (test 261 K/CU MM 150-450 code = 756) MEAN PLATELET VOLUME (BEAKER) 9.6 fL 9.4-12.4 (test code = 754) NUCLEATED RED BLOOD CELLS 0 /100 WBC 0-0 (BEAKER) (test code = 413) NEUTROPHILS RELATIVE PERCENT 83 % (BEAKER) (test code = 429) LYMPHOCYTES RELATIVE PERCENT 13 % (BEAKER) (test code = 430) MONOCYTES RELATIVE PERCENT 3 % (BEAKER) (test code = 431) EOSINOPHILS RELATIVE PERCENT 0 % (BEAKER) (test code = 432) BASOPHILS RELATIVE PERCENT 0 % (BEAKER) (test code = 437) NEUTROPHILS ABSOLUTE COUNT 7.77 K/ L 1.78-5.38 H (BEAKER) (test code = 670) LYMPHOCYTES ABSOLUTE COUNT 1.21 K/ L 1.32-3.57 L (BEAKER) (test code = 414) MONOCYTES ABSOLUTE COUNT (BEAKER) 0.32 K/ L 0.30-0.82 (test code = 415) EOSINOPHILS ABSOLUTE COUNT 0.00 K/ L 0.04-0.54 L (BEAKER) (test code = 416) BASOPHILS ABSOLUTE COUNT (BEAKER) 0.03 K/ L 0.01-0.08 (test code = 417) IMMATURE GRANULOCYTES-RELATIVE 0.40 % 0.00-1.00 PERCENT (BEAKER) (test code = 2801) T4, [id number] 21:47:59 Test Item Value Reference Range Interpretation Comments FREE T4 (BEAKER) (test code = 655) 1.03 ng/dL 0.70-1.48 [employer] Supervisor ID - BSTSH/FREE T4 IF [id number] 21:13:52 Test Item Value Reference Range Interpretation Comments THYROID STIMULATING HORMONE 0.183 uIU/mL 0.350-4.940 L (BEAKER) (test code = 772) [employer] Supervisor ID - BSVITAMIN [id number] 21:13:35 Test Item Value Reference Range Interpretation Comments VITAMIN B12 (BEAKER) (test code = 394 pg/mL 213-816 774) [employer] Supervisor ID - BSCOMPREHENSIVE METABOLIC [id number] 20:45:49 Test Item Value Reference Range Interpretation Comments TOTAL PROTEIN 7.5 gm/dL 6.0-8.3 (BEAKER) (test code = 770) ALBUMIN (BEAKER) 4.1 g/dL 3.5-5.0 (test code = 1145) ALKALINE 64 U/L 40-150 PHOSPHATASE (BEAKER) (test code = 346) BILIRUBIN TOTAL 0.6 mg/dL 0.2-1.2 (BEAKER) (test code = 377) SODIUM (BEAKER) 136 meq/L 136-145 (test code = 381) POTASSIUM (BEAKER) 3.7 meq/L 3.5-5.1 (test code = 379) CHLORIDE (BEAKER) 105 meq/L 98-107 (test code = 382) CO2 (BEAKER) (test 25 meq/L 22-29 code = 355) BLOOD UREA 13 mg/dL 7-21 NITROGEN (BEAKER) (test code = 354) CREATININE 0.77 mg/dL 0.57-1.25 (BEAKER) (test code = 358) GLUCOSE RANDOM 119 mg/dL 70-105 H (BEAKER) (test code = 652) CALCIUM (BEAKER) 8.9 mg/dL 8.4-10.2 (test code = 697) AST (SGOT) 11 U/L 5-34 (BEAKER) (test code = 353) ALT (SGPT) 14 U/L 6-55 (BEAKER) (test code = 347) EGFR (BEAKER) 121 Interpretatio n of eGFR (test code = 1092) mL/min/1.[address] age Description sq m Result G1 Vickie l or high >=90 G2 Mildly decreased 60-89 G3a Mildl y to moderately 45-5 9 G3b Moderately to s everely 30-44 G4 Severl y decreased 15-29 G5 Kidney failure <15Reported eGF R is based on the CKD-EPI 2021 equation that d oes not use a race coefficientEsti mated GFR is not as accur ate as Creatinine Yin mitchell in predicting glom erular filtration rate . Estimated GFR is not appl icable for dialysis patien ts [employer] Supervisor ID - BSPROTHROMBIN TIME/[id number] 20:30:22 Test Item Value Reference Range Interpretation Comments PROTIME (BEAKER) (test code = 14.7 seconds 11.9-14.2 H 759) INR (BEAKER) (test code = 370) 1.22 <=5.90 RECOMMENDED COUMADIN/WARFARIN INR THERAPY RANGESSTANDARD DOSE: 2.0 - 3.0 Includes: PROPHYLAXIS for venous thrombosis, systemic embolization; TREATMENT for venous thrombosis and/or pulmonary embolus.HIGH RISK: Target INR is 2.5-3.5 for patients with mechanical heart valves.CBC W/PLT COUNT & AUTO [id number] 20:23:49 Test Item Value Reference Range Interpretation Comments WHITE BLOOD CELL COUNT (BEAKER) 9.7 K/ L 3.5-10.5 (test code = 775) RED BLOOD CELL COUNT (BEAKER) 5.14 M/ L 4.63-6.08 (test code = 761) HEMOGLOBIN (BEAKER) (test code = 15.8 GM/DL 13.7-17.5 410) HEMATOCRIT (BEAKER) (test code = 45.5 % 40.1-51.0 411) MEAN CORPUSCULAR VOLUME (BEAKER) 89 fL 79-92 (test code = 753) MEAN CORPUSCULAR HEMOGLOBIN 30.7 pg 25.7-32.2 (BEAKER) (test code = 751) MEAN CORPUSCULAR HEMOGLOBIN CONC 34.7 GM/DL 32.3-36.5 (BEAKER) (test code = 752) RED CELL DISTRIBUTION WIDTH 12.2 % 11.6-14.4 (BEAKER) (test code = 412) PLATELET COUNT (BEAKER) (test 254 K/CU MM 150-450 code = 756) MEAN PLATELET VOLUME (BEAKER) 9.3 fL 9.4-12.4 L (test code = 754) NUCLEATED RED BLOOD CELLS 0 /100 WBC 0-0 (BEAKER) (test code = 413) NEUTROPHILS RELATIVE PERCENT 89 % (BEAKER) (test code = 429) LYMPHOCYTES RELATIVE PERCENT 9 % (BEAKER) (test code = 430) MONOCYTES RELATIVE PERCENT 1 % (BEAKER) (test code = 431) EOSINOPHILS RELATIVE PERCENT 0 % (BEAKER) (test code = 432) BASOPHILS RELATIVE PERCENT 1 % (BEAKER) (test code = 437) NEUTROPHILS ABSOLUTE COUNT 8.60 K/ L 1.78-5.38 H (BEAKER) (test code = 670) LYMPHOCYTES ABSOLUTE COUNT 0.86 K/ L 1.32-3.57 L (BEAKER) (test code = 414) MONOCYTES ABSOLUTE COUNT (BEAKER) 0.11 K/ L 0.30-0.82 L (test code = 415) EOSINOPHILS ABSOLUTE COUNT 0.01 K/ L 0.04-0.54 L (BEAKER) (test code = 416) BASOPHILS ABSOLUTE COUNT (BEAKER) 0.07 K/ L 0.01-0.08 (test code = 417) IMMATURE GRANULOCYTES-RELATIVE 0.60 % 0.00-1.00 PERCENT (BEAKER) (test code = 2801) - XR CHEST 1 [id number] 22:42:00 Name: SHOSHANA HOOVER [facility] : 1990 Age/S: 29 / M [address] [address] [place] Unit #: [id number] Loc: [place] [address] Phys: [place] Wna MD Acct: [id number] Dis Date: Status: REG ER PHONE #: [phone] Exam Date: 04/09/2020 6749 FAX #: Reason: fever EXAMS: CPT: [id number] XR CHEST 1 V 25453 Fluoro Time: DAP (Gy m2): Air Kerma [...] MD PAGE 1 Signed Report Name: SHOSHANA AKINS [facility] : 1990 Age/S: 29 / M [address] [address] [place] Unit #: [id number] Loc: [place] [address] Phys: [place] Wan MD Acct: [id number] Dis Date: Status: REG ER PHONE #: [phone] Exam Date: 04/09/20202238 FAX #: Reason: fever EXAMS: CPT: [id number] XR CHEST 1 V 32680 F lizandro Time: DAP (Gy m2): Air Kerma (mGy): (Continued) Technologist: Candida Reed, RT(R)(CT) TrnscbDate/Time: 04/09/2020 (2) [id number] Orig Print D/T: S: 04/09/2020 (3) PAGE 2 [facility] [id number] 15:21:00 Test Item Value Reference Range Interpretation Comments UA Protein (test code Negative (12/23/18 9:21 = UA Protein) AM) [facility] AND [id number] 15:21:00 Test Item Value Reference Range Interpretation Comments UA Glucose (test code Negative *NA*(12/23/18 = UA Glucose) 9:21 AM) [facility] AND [id number] 15:21:00 Test Item Value Reference Range Interpretation Comments UA Urobilinogen (test code = UA <=1.0 mg/dL 0.1-1.0 Urobilinogen) [facility] AND [id number] 15:21:00 Test Item Value Reference Range Interpretation Comments UA Ketones (test code Negative *NA*(12/23/18 = UA Ketones) 9:21 AM) [facility] AND [id number] 15:21:00 Test Item Value Reference Range Interpretation Comments UA Nitrite (test code Negative (12/23/18 9:21 = UA Nitrite) AM) [facility] AND [id number] 15:21:00 Test Item Value Reference Range Interpretation Comments UA Bili (test code = Negative *NA*(12/23/18 UA Bili) 9:21 AM) [facility] AND [id number] 15:21:00 Test Item Value Reference Range Interpretation Comments UA Leuk Est (test Negative (12/23/18 9:21 code = UA Leuk Est) AM) [facility] AND [id number] 15:21:00 Test Item Value Reference Range Interpretation Comments UA Blood (test code = Negative (12/23/18 9:21 UA Blood) AM) [facility] AND [id number] 15:21:00 Test Item Value Reference Range Interpretation Comments UA Mucus (test code = UA Mucus) Few /LPF [facility] [id number] 15:21:00 Test Item Value Reference Range Interpretation Comments UA WBC (test code = no gt See_Comment [Automa denise message] The UA WBC) system which ge nerated this result transmit denise reference range : <=5. The reference range was not used to interpr et this result as vickie l/abnormal. [facility] [id number] 15:21:00 Test Item Value Reference Range Interpretation Comments UA RBC (test code = 1 See_Comment [Automa denise message] The UA RBC) system which ge nerated this result transmit denise reference range : <=2. The reference range was not used to interpr et this result as vickie l/abnormal. [facility] [id number] 15:21:00 Test Item Value Reference Range Interpretation Comments UA Sq Epi (test code = None Seen (12/23/18 9:21 UA Sq Epi) AM) [facility] AND [id number] 15:21:00 Test Item Value Reference Range Interpretation Comments UA pH (test code = UA pH) 7.0 1 5.0-8.0 [facility] [id number] 15:21:00 Test Item Value Reference Range Interpretation Comments UA Spec Grav (test code = UA Spec 1.005 1 Grav) [facility] AND [id number] 15:21:00 Test Item Value Reference Range Interpretation Comments UA Color (test code = UA Color) STRAW [facility] AND [id number] 15:21:00 Test Item Value Reference Range Interpretation Comments UA Turbidity (test code = Clear (12/23/18 9:21 UA Turbidity) AM) [facility] [id number] 15:21:00 Test Item Value Reference Range Interpretation Comments UA Protein (test code Negative (12/23/18 9:21 = UA Protein) AM) [facility] AND [id number] 15:21:00 Test Item Value Reference Range Interpretation Comments UA Glucose (test code Negative *NA*(12/23/18 = UA Glucose) 9:21 AM) [facility] AND [id number] 15:21:00 Test Item Value Reference Range Interpretation Comments UA Urobilinogen (test code = UA <=1.0 mg/dL 0.1-1.0 Urobilinogen) [facility] AND [id number] 15:21:00 Test Item Value Reference Range Interpretation Comments UA Ketones (test code Negative *NA*(12/23/18 = UA Ketones) 9:21 AM) [facility] AND [id number] 15:21:00 Test Item Value Reference Range Interpretation Comments UA Nitrite (test code Negative (12/23/18 9:21 = UA Nitrite) AM) [facility] AND [id number] 15:21:00 Test Item Value Reference Range Interpretation Comments UA Bili (test code = Negative *NA*(12/23/18 UA Bili) 9:21 AM) [facility] AND [id number] 15:21:00 Test Item Value Reference Range Interpretation Comments UA Leuk Est (test Negative (12/23/18 9:21 code = UA Leuk Est) AM) [facility] AND [id number] 15:21:00 Test Item Value Reference Range Interpretation Comments UA Blood (test code = Negative (12/23/18 9:21 UA Blood) AM) [facility] AND [id number] 15:21:00 Test Item Value Reference Range Interpretation Comments UA Mucus (test code = UA Mucus) Few /LPF [facility] AND [id number] 15:21:00 Test Item Value Reference Range Interpretation Comments UA WBC (test code = no gt See_Comment [Automa denise message] The UA WBC) system which ge nerated this result transmit denise reference range : <=5. The reference range was not used to interpr et this result as vickie l/abnormal. [facility] AND [id number] 15:21:00 Test Item Value Reference Range Interpretation Comments UA RBC (test code = 1 See_Comment [Automa denise message] The UA RBC) system which ge nerated this result transmit denise reference range : <=2. The reference range was not used to interpr et this result as vickie l/abnormal. [facility] AND [id number] 15:21:00 Test Item Value Reference Range Interpretation Comments UA Sq Epi (test code = None Seen (12/23/18 9:21 UA Sq Epi) AM) [facility] AND [id number] 15:21:00 Test Item Value Reference Range Interpretation Comments UA pH (test code = UA pH) 7.0 1 5.0-8.0 [facility] AND [id number] 15:21:00 Test Item Value Reference Range Interpretation Comments UA Spec Grav (test code = UA Spec 1.005 1 Grav) [facility] AND [id number] 15:21:00 Test Item Value Reference Range Interpretation Comments UA Color (test code = UA Color) STRAW [facility] AND [id number] 15:21:00 Test Item Value Reference Range Interpretation Comments UA Turbidity (test code = Clear (12/23/18 9:21 UA Turbidity) AM) [facility] AND [id number] 15:21:00 Test Item Value Reference Range Interpretation Comments UA Protein (test code Negative (12/23/18 9:21 = UA Protein) AM) [facility] AND [id number] 15:21:00 Test Item Value Reference Range Interpretation Comments UA Glucose (test code Negative *NA*(12/23/18 = UA Glucose) 9:21 AM) [facility] AND [id number] 15:21:00 Test Item Value Reference Range Interpretation Comments UA Urobilinogen (test code = UA <=1.0 mg/dL 0.1-1.0 Urobilinogen) [facility] AND [id number] 15:21:00 Test Item Value Reference Range Interpretation Comments UA Ketones (test code Negative *NA*(12/23/18 = UA Ketones) 9:21 AM) [facility] AND [id number] 15:21:00 Test Item Value Reference Range Interpretation Comments UA Nitrite (test code Negative (12/23/18 9:21 = UA Nitrite) AM) [facility] AND [id number] 15:21:00 Test Item Value Reference Range Interpretation Comments UA Bili (test code = Negative *NA*(12/23/18 UA Bili) 9:21 AM) [facility] AND [id number] 15:21:00 Test Item Value Reference Range Interpretation Comments UA Leuk Est (test Negative (12/23/18 9:21 code = UA Leuk Est) AM) [facility] AND [id number] 15:21:00 Test Item Value Reference Range Interpretation Comments UA Blood (test code = Negative (12/23/18 9:21 UA Blood) AM) [facility] AND [id number] 15:21:00 Test Item Value Reference Range Interpretation Comments UA Mucus (test code = UA Mucus) Few /LPF [facility] AND [id number] 15:21:00 Test Item Value Reference Range Interpretation Comments UA WBC (test code = no gt See_Comment [Automa denise message] The UA WBC) system which ge nerated this result transmit denise reference range : <=5. The reference range was not used to interpr et this result as vickie l/abnormal. [facility] AND [id number] 15:21:00 Test Item Value Reference Range Interpretation Comments UA RBC (test code = 1 See_Comment [Automa denise message] The UA RBC) system which ge nerated this result transmit denise reference range : <=2. The reference range was not used to interpr et this result as vickie l/abnormal. [facility] AND [id number] 15:21:00 Test Item Value Reference Range Interpretation Comments UA Sq Epi (test code = None Seen (12/23/18 9:21 UA Sq Epi) AM) [facility] AND [id number] 15:21:00 Test Item Value Reference Range Interpretation Comments UA pH (test code = UA pH) 7.0 1 5.0-8.0 [facility] AND [id number] 15:21:00 Test Item Value Reference Range Interpretation Comments UA Spec Grav (test code = UA Spec 1.005 1 Grav) [facility] AND [id number] 15:21:00 Test Item Value Reference Range Interpretation Comments UA Color (test code = UA Color) STRAW [facility] AND [id number] 15:21:00 Test Item Value Reference Range Interpretation Comments UA Turbidity (test code = Clear (12/23/18 9:21 UA Turbidity) AM) [facility] AND [id number] 15:21:00 Test Item Value Reference Range Interpretation Comments UA Protein (test code Negative (12/23/18 9:21 = UA Protein) AM) [facility] AND [id number] 15:21:00 Test Item Value Reference Range Interpretation Comments UA Glucose (test code Negative *NA*(12/23/18 = UA Glucose) 9:21 AM) [facility] AND [id number] 15:21:00 Test Item Value Reference Range Interpretation Comments UA Urobilinogen (test code = UA <=1.0 mg/dL 0.1-1.0 Urobilinogen) [facility] AND [id number] 15:21:00 Test Item Value Reference Range Interpretation Comments UA Ketones (test code Negative *NA*(12/23/18 = UA Ketones) 9:21 AM) [facility] AND [id number] 15:21:00 Test Item Value Reference Range Interpretation Comments UA Nitrite (test code Negative (12/23/18 9:21 = UA Nitrite) AM) [facility] AND [id number] 15:21:00 Test Item Value Reference Range Interpretation Comments UA Bili (test code = Negative *NA*(12/23/18 UA Bili) 9:21 AM) [facility] AND [id number] 15:21:00 Test Item Value Reference Range Interpretation Comments UA Leuk Est (test Negative (12/23/18 9:21 code = UA Leuk Est) AM) [facility] AND [id number] 15:21:00 Test Item Value Reference Range Interpretation Comments UA Blood (test code = Negative (12/23/18 9:21 UA Blood) AM) [facility] AND [id number] 15:21:00 Test Item Value Reference Range Interpretation Comments UA Mucus (test code = UA Mucus) Few /LPF [facility] AND [id number] 15:21:00 Test Item Value Reference Range Interpretation Comments UA WBC (test code = no gt See_Comment [Automa dneise message] The UA WBC) system which ge nerated this result transmit denise reference range : <=5. The reference range was not used to interpr et this result as vickie l/abnormal. [facility] AND [id number] 15:21:00 Test Item Value Reference Range Interpretation Comments UA RBC (test code = 1 See_Comment [Automa denise message] The UA RBC) system which ge nerated this result transmit denise reference range : <=2. The reference range was not used to interpr et this result as vickie l/abnormal. [facility] AND [id number] 15:21:00 Test Item Value Reference Range Interpretation Comments UA Sq Epi (test code = None Seen (12/23/18 9:21 UA Sq Epi) AM) [facility] AND [id number] 15:21:00 Test Item Value Reference Range Interpretation Comments UA pH (test code = UA pH) 7.0 1 5.0-8.0 [facility] AND [id number] 15:21:00 Test Item Value Reference Range Interpretation Comments UA Spec Grav (test code = UA Spec 1.005 1 Grav) [facility] AND [id number] 15:21:00 Test Item Value Reference Range Interpretation Comments UA Color (test code = UA Color) STRAW [facility] AND [id number] 15:21:00 Test Item Value Reference Range Interpretation Comments UA Turbidity (test code = Clear (12/23/18 9:21 UA Turbidity) AM) [facility] AND [id number] 15:21:00 Test Item Value Reference Range Interpretation Comments UA Protein (test code Negative (12/23/18 9:21 = UA Protein) AM) [facility] AND [id number] 15:21:00 Test Item Value Reference Range Interpretation Comments UA Glucose (test code Negative *NA*(12/23/18 = UA Glucose) 9:21 AM) [facility] AND [id number] 15:21:00 Test Item Value Reference Range Interpretation Comments UA Urobilinogen (test code = UA <=1.0 mg/dL 0.1-1.0 Urobilinogen) [facility] AND [id number] 15:21:00 Test Item Value Reference Range Interpretation Comments UA Ketones (test code Negative *NA*(12/23/18 = UA Ketones) 9:21 AM) [facility] AND [id number] 15:21:00 Test Item Value Reference Range Interpretation Comments UA Nitrite (test code Negative (12/23/18 9:21 = UA Nitrite) AM) [facility] AND [id number] 15:21:00 Test Item Value Reference Range Interpretation Comments UA Bili (test code = Negative *NA*(12/23/18 UA Bili) 9:21 AM) [facility] AND [id number] 15:21:00 Test Item Value Reference Range Interpretation Comments UA Leuk Est (test Negative (12/23/18 9:21 code = UA Leuk Est) AM) [facility] AND [id number] 15:21:00 Test Item Value Reference Range Interpretation Comments UA Blood (test code = Negative (12/23/18 9:21 UA Blood) AM) [facility] AND [id number] 15:21:00 Test Item Value Reference Range Interpretation Comments UA Mucus (test code = UA Mucus) Few /LPF [facility] AND [id number] 15:21:00 Test Item Value Reference Range Interpretation Comments UA WBC (test code = no gt See_Comment [Automa denise message] The UA WBC) system which ge nerated this result transmit denise reference range : <=5. The reference range was not used to interpr et this result as vickie l/abnormal. [facility] AND [id number] 15:21:00 Test Item Value Reference Range Interpretation Comments UA RBC (test code = 1 See_Comment [Automa denise message] The UA RBC) system which ge nerated this result transmit denise reference range : <=2. The reference range was not used to interpr et this result as vickie l/abnormal. [facility] AND [id number] 15:21:00 Test Item Value Reference Range Interpretation Comments UA Sq Epi (test code = None Seen (12/23/18 9:21 UA Sq Epi) AM) [facility] AND [id number] 15:21:00 Test Item Value Reference Range Interpretation Comments UA pH (test code = UA pH) 7.0 1 5.0-8.0 [facility] AND [id number] 15:21:00 Test Item Value Reference Range Interpretation Comments UA Spec Grav (test code = UA Spec 1.005 1 Grav) [facility] AND [id number] 15:21:00 Test Item Value Reference Range Interpretation Comments UA Color (test code = UA Color) STRAW [facility] AND [id number] 15:21:00 Test Item Value Reference Range Interpretation Comments UA Turbidity (test code = Clear (12/23/18 9:21 UA Turbidity) AM) [facility] AND [id number] 15:21:00 Test Item Value Reference Range Interpretation Comments UA Protein (test code Negative (12/23/18 9:21 = UA Protein) AM) [facility] AND [id number] 15:21:00 Test Item Value Reference Range Interpretation Comments UA Glucose (test code Negative *NA*(12/23/18 = UA Glucose) 9:21 AM) [facility] AND [id number] 15:21:00 Test Item Value Reference Range Interpretation Comments UA Urobilinogen (test code = UA <=1.0 mg/dL 0.1-1.0 Urobilinogen) [facility] AND [id number] 15:21:00 Test Item Value Reference Range Interpretation Comments UA Ketones (test code Negative *NA*(12/23/18 = UA Ketones) 9:21 AM) [facility] AND [id number] 15:21:00 Test Item Value Reference Range Interpretation Comments UA Nitrite (test code Negative (12/23/18 9:21 = UA Nitrite) AM) [facility] AND [id number] 15:21:00 Test Item Value Reference Range Interpretation Comments UA Bili (test code = Negative *NA*(12/23/18 UA Bili) 9:21 AM) [facility] AND [id number] 15:21:00 Test Item Value Reference Range Interpretation Comments UA Leuk Est (test Negative (12/23/18 9:21 code = UA Leuk Est) AM) [facility] AND [id number] 15:21:00 Test Item Value Reference Range Interpretation Comments UA Blood (test code = Negative (12/23/18 9:21 UA Blood) AM) [facility] AND [id number] 15:21:00 Test Item Value Reference Range Interpretation Comments UA Mucus (test code = UA Mucus) Few /LPF [facility] AND [id number] 15:21:00 Test Item Value Reference Range Interpretation Comments UA WBC (test code = no gt See_Comment [Automa denise message] The UA WBC) system which ge nerated this result transmit denise reference range : <=5. The reference range was not used to interpr et this result as vickie l/abnormal. [facility] AND [id number] 15:21:00 Test Item Value Reference Range Interpretation Comments UA RBC (test code = 1 See_Comment [Automa denise message] The UA RBC) system which ge nerated this result transmit denise reference range : <=2. The reference range was not used to interpr et this result as vickie l/abnormal. [facility] AND [id number] 15:21:00 Test Item Value Reference Range Interpretation Comments UA Sq Epi (test code = None Seen (12/23/18 9:21 UA Sq Epi) AM) [facility] AND [id number] 15:21:00 Test Item Value Reference Range Interpretation Comments UA pH (test code = UA pH) 7.0 1 5.0-8.0 [facility] AND [id number] 15:21:00 Test Item Value Reference Range Interpretation Comments UA Spec Grav (test code = UA Spec 1.005 1 Grav) [facility] AND [id number] 15:21:00 Test Item Value Reference Range Interpretation Comments UA Protein (test code Negative (12/23/18 9:21 = UA Protein) AM) [facility] AND [id number] 15:21:00 Test Item Value Reference Range Interpretation Comments UA Glucose (test code Negative *NA*(12/23/18 = UA Glucose) 9:21 AM) [facility] AND [id number] 15:21:00 Test Item Value Reference Range Interpretation Comments UA Urobilinogen (test code = UA <=1.0 mg/dL 0.1-1.0 Urobilinogen) [facility] AND [id number] 15:21:00 Test Item Value Reference Range Interpretation Comments UA Ketones (test code Negative *NA*(12/23/18 = UA Ketones) 9:21 AM) [facility] AND [id number] 15:21:00 Test Item Value Reference Range Interpretation Comments UA Nitrite (test code Negative (12/23/18 9:21 = UA Nitrite) AM) [facility] AND [id number] 15:21:00 Test Item Value Reference Range Interpretation Comments UA Bili (test code = Negative *NA*(12/23/18 UA Bili) 9:21 AM) [facility] AND [id number] 15:21:00 Test Item Value Reference Range Interpretation Comments UA Leuk Est (test Negative (12/23/18 9:21 code = UA Leuk Est) AM) [facility] AND [id number] 15:21:00 Test Item Value Reference Range Interpretation Comments UA Blood (test code = Negative (12/23/18 9:21 UA Blood) AM) [facility] AND [id number] 15:21:00 Test Item Value Reference Range Interpretation Comments UA Mucus (test code = UA Mucus) Few /LPF [facility] AND [id number] 15:21:00 Test Item Value Reference Range Interpretation Comments UA WBC (test code = no gt See_Comment [Automa denise message] The UA WBC) system which ge nerated this result transmit denise reference range : <=5. The reference range was not used to interpr et this result as vickie l/abnormal. [facility] AND [id number] 15:21:00 Test Item Value Reference Range Interpretation Comments UA RBC (test code = 1 See_Comment [Automa denise message] The UA RBC) system which ge nerated this result transmit denise reference range : <=2. The reference range was not used to interpr et this result as vickie l/abnormal. [facility] AND [id number] 15:21:00 Test Item Value Reference Range Interpretation Comments UA Sq Epi (test code = None Seen (12/23/18 9:21 UA Sq Epi) AM) [facility] AND [id number] 15:21:00 Test Item Value Reference Range Interpretation Comments UA pH (test code = UA pH) 7.0 1 5.0-8.0 [facility] AND [id number] 15:21:00 Test Item Value Reference Range Interpretation Comments UA Spec Grav (test code = UA Spec 1.005 1 Grav) [facility] AND [id number] 15:21:00 Test Item Value Reference Range Interpretation Comments UA Color (test code = UA Color) STRAW [facility] AND [id number] 15:21:00 Test Item Value Reference Range Interpretation Comments UA Turbidity (test code = Clear (12/23/18 9:21 UA Turbidity) AM) [facility] AND [id number] 15:21:00 Test Item Value Reference Range Interpretation Comments UA Color (test code = UA Color) STRAW [facility] AND [id number] 15:21:00 Test Item Value Reference Range Interpretation Comments UA Turbidity (test code = Clear (12/23/18 9:21 UA Turbidity) AM) [facility] AND [id number] 15:21:00 Test Item Value Reference Range Interpretation Comments UA Protein (test code Negative (12/23/18 9:21 = UA Protein) AM) [facility] AND [id number] 15:21:00 Test Item Value Reference Range Interpretation Comments UA Glucose (test code Negative *NA*(12/23/18 = UA Glucose) 9:21 AM) [facility] AND [id number] 15:21:00 Test Item Value Reference Range Interpretation Comments UA Urobilinogen (test code = UA <=1.0 mg/dL 0.1-1.0 Urobilinogen) [facility] AND [id number] 15:21:00 Test Item Value Reference Range Interpretation Comments UA Ketones (test code Negative *NA*(12/23/18 = UA Ketones) 9:21 AM) [facility] AND [id number] 15:21:00 Test Item Value Reference Range Interpretation Comments UA Nitrite (test code Negative (12/23/18 9:21 = UA Nitrite) AM) [facility] AND [id number] 15:21:00 Test Item Value Reference Range Interpretation Comments UA Protein (test code Negative (12/23/18 9:21 = UA Protein) AM) [facility] AND [id number] 15:21:00 Test Item Value Reference Range Interpretation Comments UA Glucose (test code Negative *NA*(12/23/18 = UA Glucose) 9:21 AM) [facility] AND [id number] 15:21:00 Test Item Value Reference Range Interpretation Comments UA Urobilinogen (test code = UA <=1.0 mg/dL 0.1-1.0 Urobilinogen) [facility] AND [id number] 15:21:00 Test Item Value Reference Range Interpretation Comments UA Ketones (test code Negative *NA*(12/23/18 = UA Ketones) 9:21 AM) [facility] AND [id number] 15:21:00 Test Item Value Reference Range Interpretation Comments UA Nitrite (test code Negative (12/23/18 9:21 = UA Nitrite) AM) [facility] AND [id number] 15:21:00 Test Item Value Reference Range Interpretation Comments UA Bili (test code = Negative *NA*(12/23/18 UA Bili) 9:21 AM) [facility] AND [id number] 15:21:00 Test Item Value Reference Range Interpretation Comments UA Bili (test code = Negative *NA*(12/23/18 UA Bili) 9:21 AM) [facility] AND [id number] 15:21:00 Test Item Value Reference Range Interpretation Comments UA Leuk Est (test Negative (12/23/18 9:21 code = UA Leuk Est) AM) [facility] AND [id number] 15:21:00 Test Item Value Reference Range Interpretation Comments UA Blood (test code = Negative (12/23/18 9:21 UA Blood) AM) [facility] AND [id number] 15:21:00 Test Item Value Reference Range Interpretation Comments UA Mucus (test code = UA Mucus) Few /LPF [facility] AND [id number] 15:21:00 Test Item Value Reference Range Interpretation Comments UA WBC (test code = no gt See_Comment [Automa denise message] The UA WBC) system which ge nerated this result transmit denise reference range : <=5. The reference range was not used to interpr et this result as vickie l/abnormal. [facility] AND [id number] 15:21:00 Test Item Value Reference Range Interpretation Comments UA RBC (test code = 1 See_Comment [Automa denise message] The UA RBC) system which ge nerated this result transmit denise reference range : <=2. The reference range was not used to interpr et this result as vickie l/abnormal. [facility] AND [id number] 15:21:00 Test Item Value Reference Range Interpretation Comments UA Sq Epi (test code = None Seen (12/23/18 9:21 UA Sq Epi) AM) [facility] AND [id number] 15:21:00 Test Item Value Reference Range Interpretation Comments UA pH (test code = UA pH) 7.0 1 5.0-8.0 [facility] AND [id number] 15:21:00 Test Item Value Reference Range Interpretation Comments UA Spec Grav (test code = UA Spec 1.005 1 Grav) [facility] AND [id number] 15:21:00 Test Item Value Reference Range Interpretation Comments UA Color (test code = UA Color) STRAW [facility] AND [id number] 15:21:00 Test Item Value Reference Range Interpretation Comments UA Turbidity (test code = Clear (12/23/18 9:21 UA Turbidity) AM) [facility] AND [id number] 15:21:00 Test Item Value Reference Range Interpretation Comments UA Leuk Est (test Negative (12/23/18 9:21 code = UA Leuk Est) AM) [facility] AND [id number] 15:21:00 Test Item Value Reference Range Interpretation Comments UA Blood (test code = Negative (12/23/18 9:21 UA Blood) AM) [facility] AND [id number] 15:21:00 Test Item Value Reference Range Interpretation Comments UA Mucus (test code = UA Mucus) Few /LPF [facility] AND [id number] 15:21:00 Test Item Value Reference Range Interpretation Comments UA WBC (test code = no gt See_Comment [Automa denise message] The UA WBC) system which ge nerated this result transmit denise reference range : <=5. The reference range was not used to interpr et this result as vickie l/abnormal. [facility] AND [id number] 15:21:00 Test Item Value Reference Range Interpretation Comments UA RBC (test code = 1 See_Comment [Automa denise message] The UA RBC) system which ge nerated this result transmit denise reference range : <=2. The reference range was not used to interpr et this result as vickie l/abnormal. [facility] AND [id number] 15:21:00 Test Item Value Reference Range Interpretation Comments UA Sq Epi (test code = None Seen (12/23/18 9:21 UA Sq Epi) AM) [facility] AND [id number] 15:21:00 Test Item Value Reference Range Interpretation Comments UA pH (test code = UA pH) 7.0 1 5.0-8.0 [facility] AND [id number] 15:21:00 Test Item Value Reference Range Interpretation Comments UA Spec Grav (test code = UA Spec 1.005 1 Grav) [facility] AND [id number] 15:21:00 Test Item Value Reference Range Interpretation Comments UA Color (test code = UA Color) STRAW [facility] AND [id number] 15:21:00 Test Item Value Reference Range Interpretation Comments UA Turbidity (test code = Clear (12/23/18 9:21 UA Turbidity) AM) [facility] AND [id number] 15:21:00 Test Item Value Reference Range Interpretation Comments UA Protein (test code Negative (12/23/18 9:21 = UA Protein) AM) [facility] AND [id number] 15:21:00 Test Item Value Reference Range Interpretation Comments UA Glucose (test code Negative *NA*(12/23/18 = UA Glucose) 9:21 AM) [facility] AND [id number] 15:21:00 Test Item Value Reference Range Interpretation Comments UA Urobilinogen (test code = UA <=1.0 mg/dL 0.1-1.0 Urobilinogen) [facility] AND [id number] 15:21:00 Test Item Value Reference Range Interpretation Comments UA Ketones (test code Negative *NA*(12/23/18 = UA Ketones) 9:21 AM) [facility] AND [id number] 15:21:00 Test Item Value Reference Range Interpretation Comments UA Nitrite (test code Negative (12/23/18 9:21 = UA Nitrite) AM) [facility] AND [id number] 15:21:00 Test Item Value Reference Range Interpretation Comments UA Bili (test code = Negative *NA*(12/23/18 UA Bili) 9:21 AM) [facility] [id number] 15:21:00 Test Item Value Reference Range Interpretation Comments UA Leuk Est (test Negative (12/23/18 9:21 code = UA Leuk Est) AM) [facility] [id number] 15:21:00 Test Item Value Reference Range Interpretation Comments UA Blood (test code = Negative (12/23/18 9:21 UA Blood) AM) [facility] [id number] 15:21:00 Test Item Value Reference Range Interpretation Comments UA Mucus (test code = UA Mucus) Few /LPF [facility] AND [id number] 15:21:00 Test Item Value Reference Range Interpretation Comments UA WBC (test code = no gt See_Comment [Automa denise message] The UA WBC) system which ge nerated this result transmit denise reference range : <=5. The reference range was not used to interpr et this result as vickie l/abnormal. [facility] [id number] 15:21:00 Test Item Value Reference Range Interpretation Comments UA RBC (test code = 1 See_Comment [Automa denise message] The UA RBC) system which ge nerated this result transmit denise reference range : <=2. The reference range was not used to interpr et this result as vickie l/abnormal. [facility] [id number] 15:21:00 Test Item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 PM) [facility] [id number] 21:21:00 Test Item Value Reference Range Interpretation Comments UDS Note (test code = See Note (06/03/18 4:21 UDS Note) PM) [facility] [id number] 21:21:00 Test Item Value Reference Range Interpretation Comments U Phencyclidine Scr (test Negative *NA*(06/03/18 code = U Phencyclidine 4:21 PM) Scr) [facility] [id number] 21:21:00 Test Item Value Reference Range Interpretation Comments U Cannab Scr (test Positive *ABN*(06/03/18 code = U Cannab Scr) 4:21 PM) [facility] [id number] 21:21:00 Test Item Value Reference Range Interpretation Comments U Opiate Scr (test Negative *NA*(06/03/18 code = U Opiate Scr) 4:21 PM) [facility] [id number] 21:21:00 Test Item Value Reference Range Interpretation Comments U Amph Scr (test code Negative *NA*(06/03/18 = U Amph Scr) 4:21 PM) [facility] [id number] 21:21:00 Test Item Value Reference Range Interpretation Comments U Cocaine Scr (test Negative *NA*(06/03/18 code = U Cocaine Scr) 4:21 PM) [facility] [id number] 21:21:00 Test Item Value Reference Range Interpretation Comments UA Ketones (test code = UA Ketones) 20 mg/dL [facility] [id number] 21:21:00 Test Item Value Reference Range Interpretation Comments U Luz Marina Scr (test code Negative *NA*(06/03/18 = U Luz Marina Scr) 4:21 PM) [facility] [id number] 21:21:00 Test Item Value Reference Range Interpretation Comments U Benzodiaz Scr (test Negative *NA*(06/03/18 code = U Benzodiaz Scr) 4:21 PM) [facility] AND [id number] 21:21:00 Test Item Value Reference Range Interpretation Comments UA Protein (test code = UA Negative mg/dL Protein) [facility] AND [id number] 21:21:00 Test Item Value Reference Range Interpretation Comments UA Spec Grav (test code = UA Spec 1.016 1 Grav) [facility] AND [id number] 21:21:00 Test Item Value Reference Range Interpretation Comments UA Color (test code = Yellow *NA*(06/03/18 4:21 UA Color) PM) [facility] AND [id number] 21:21:00 Test Item Value Reference Range Interpretation Comments UA pH (test code = UA pH) 6.0 1 5.0-8.0 [facility] AND [id number] 21:21:00 Test Item Value Reference Range Interpretation Comments UA Turbidity (test code = Clear (06/03/18 4:21 UA Turbidity) PM) [facility] AND [id number] 21:21:00 Test Item Value Reference Range Interpretation Comments UA Urobilinogen (test code = UA <=1.0 mg/dL 0.1-1.0 Urobilinogen) [facility] AND [id number] 21:21:00 Test Item Value Reference Range Interpretation Comments UA Leuk Est (test Negative (06/03/18 4:21 code = UA Leuk Est) PM) [facility] AND [id number] 21:21:00 Test Item Value Reference Range Interpretation Comments UA WBC (test code = no gt See_Comment [Automa denise message] The UA WBC) system which ge nerated this result transmit denise reference range : <=5. The reference range was not used to interpr et this result as vickie l/abnormal. [facility] AND [id number] 21:21:00 Test Item Value Reference Range Interpretation Comments UA Glucose (test code = UA Negative mg/dL Glucose) [facility] AND [id number] 21:21:00 Test Item Value Reference Range Interpretation Comments UA RBC (test code = 3 See_Comment [Automa denise message] The UA RBC) system which ge nerated this result transmit denise reference range : <=2. The reference range was not used to interpr et this result as vickie l/abnormal. [facility] AND [id number] 21:21:00 Test Item Value Reference Range Interpretation Comments UA Mucus (test code = UA Mucus) Few /LPF [facility] AND [id number] 21:21:00 Test Item Value Reference Range Interpretation Comments UA Sq Epi (test code = UA Sq Epi) None Seen [facility] AND [id number] 21:21:00 Test Item Value Reference Range Interpretation Comments UA Nitrite (test code Negative (06/03/18 4:21 = UA Nitrite) PM) [facility] AND [id number] 21:21:00 Test Item Value Reference Range Interpretation Comments UA Blood (test code = Negative (06/03/18 4:21 UA Blood) PM) [facility] AND [id number] 21:21:00 Test Item Value Reference Range Interpretation Comments UA Bili (test code = Negative *NA*(06/03/18 UA Bili) 4:21 PM) [facility] AND [id number] 21:21:00 Test Item Value Reference Range Interpretation Comments UA Ketones (test code = UA Ketones) 20 mg/dL [facility] AND [id number] 21:21:00 Test Item Value Reference Range Interpretation Comments UA Glucose (test code = UA Negative mg/dL Glucose) [facility] [id number] 21:21:00 Test Item Value Reference Range Interpretation Comments UDS Note (test code = See Note (06/03/18 4:21 UDS Note) PM) [facility] [id number] 21:21:00 Test Item Value Reference Range Interpretation Comments U Phencyclidine Scr (test Negative *NA*(06/03/18 code = U Phencyclidine 4:21 PM) Scr) [facility] [id number] 21:21:00 Test Item Value Reference Range Interpretation Comments U Cannab Scr (test Positive *ABN*(06/03/18 code = U Cannab Scr) 4:21 PM) [facility] [id number] 21:21:00 Test Item Value Reference Range Interpretation Comments U Opiate Scr (test Negative *NA*(06/03/18 code = U Opiate Scr) 4:21 PM) [facility] [id number] 21:21:00 Test Item Value Reference Range Interpretation Comments U Amph Scr (test code Negative *NA*(06/03/18 = U Amph Scr) 4:21 PM) [facility] [id number] 21:21:00 Test Item Value Reference Range Interpretation Comments U Cocaine Scr (test Negative *NA*(06/03/18 code = U Cocaine Scr) 4:21 PM) [facility] [id number] 21:21:00 Test Item Value Reference Range Interpretation Comments U Luz Marina Scr (test code Negative *NA*(06/03/18 = U Luz Marina Scr) 4:21 PM) [facility] [id number] 21:21:00 Test Item Value Reference Range Interpretation Comments U Benzodiaz Scr (test Negative *NA*(06/03/18 code = U Benzodiaz Scr) 4:21 PM) [facility] [id number] 21:21:00 Test Item Value Reference Range Interpretation Comments UA Protein (test code = UA Negative mg/dL Protein) [facility] [id number] 21:21:00 Test Item Value Reference Range Interpretation Comments UA Spec Grav (test code = UA Spec 1.016 1 Grav) [facility] [id number] 21:21:00 Test Item Value Reference Range Interpretation Comments UA Color (test code = Yellow *NA*(06/03/18 4:21 UA Color) PM) [facility] [id number] 21:21:00 Test Item Value Reference Range Interpretation Comments UA pH (test code = UA pH) 6.0 1 5.0-8.0 [facility] [id number] 21:21:00 Test Item Value Reference Range Interpretation Comments UA Turbidity (test code = Clear (06/03/18 4:21 UA Turbidity) PM) [facility] [id number] 21:21:00 Test Item Value Reference Range Interpretation Comments UA Urobilinogen (test code = UA <=1.0 mg/dL 0.1-1.0 Urobilinogen) [facility] [id number] 21:21:00 Test Item Value Reference Range Interpretation Comments UA Leuk Est (test Negative (06/03/18 4:21 code = UA Leuk Est) PM) [facility] [id number] 21:21:00 Test Item Value Reference Range Interpretation Comments UA WBC (test code = no gt See_Comment [Automa denise message] The UA WBC) system which ge nerated this result transmit denise reference range : <=5. The reference range was not used to interpr et this result as vickie l/abnormal. [facility] [id number] 21:21:00 Test Item Value Reference Range Interpretation Comments UA RBC (test code = 3 See_Comment [Automa denise message] The UA RBC) system which ge nerated this result transmit denise reference range : <=2. The reference range was not used to interpr et this result as vickie l/abnormal. [facility] AND [id number] 21:21:00 Test Item Value Reference Range Interpretation Comments UA Mucus (test code = UA Mucus) Few /LPF [facility] AND [id number] 21:21:00 Test Item Value Reference Range Interpretation Comments UA Sq Epi (test code = UA Sq Epi) None Seen [facility] AND [id number] 21:21:00 Test Item Value Reference Range Interpretation Comments UA Nitrite (test code Negative (06/03/18 4:21 = UA Nitrite) PM) [facility] AND [id number] 21:21:00 Test Item Value Reference Range Interpretation Comments UA Blood (test code = Negative (06/03/18 4:21 UA Blood) PM) [facility] AND [id number] 21:21:00 Test Item Value Reference Range Interpretation Comments UA Bili (test code = Negative *NA*(06/03/18 UA Bili) 4:21 PM) [facility] [id number] 21:21:00 Test Item Value Reference Range Interpretation Comments UA Ketones (test code = UA Ketones) 20 mg/dL [facility] [id number] 21:21:00 Test Item Value Reference Range Interpretation Comments UA Glucose (test code = UA Negative mg/dL Glucose) [facility] [id number] 21:21:00 Test Item Value Reference Range Interpretation Comments UDS Note (test code = See Note (06/03/18 4:21 UDS Note) PM) [facility] [id number] 21:21:00 Test Item Value Reference Range Interpretation Comments U Phencyclidine Scr (test Negative *NA*(06/03/18 code = U Phencyclidine 4:21 PM) Scr) [facility] [id number] 21:21:00 Test Item Value Reference Range Interpretation Comments U Cannab Scr (test Positive *ABN*(06/03/18 code = U Cannab Scr) 4:21 PM) [facility] [id number] 21:21:00 Test Item Value Reference Range Interpretation Comments U Opiate Scr (test Negative *NA*(06/03/18 code = U Opiate Scr) 4:21 PM) [facility] [id number] 21:21:00 Test Item Value Reference Range Interpretation Comments U Amph Scr (test code Negative *NA*(06/03/18 = U Amph Scr) 4:21 PM) [facility] [id number] 21:21:00 Test Item Value Reference Range Interpretation Comments U Cocaine Scr (test Negative *NA*(06/03/18 code = U Cocaine Scr) 4:21 PM) [facility] [id number] 21:21:00 Test Item Value Reference Range Interpretation Comments U Luz Marina Scr (test code Negative *NA*(06/03/18 = U Luz Marina Scr) 4:21 PM) [facility] [id number] 21:21:00 Test Item Value Reference Range Interpretation Comments U Benzodiaz Scr (test Negative *NA*(06/03/18 code = U Benzodiaz Scr) 4:21 PM) [facility] [id number] 21:21:00 Test Item Value Reference Range Interpretation Comments UA Protein (test code = UA Negative mg/dL Protein) [facility] [id number] 21:21:00 Test Item Value Reference Range Interpretation Comments UA Spec Grav (test code = UA Spec 1.016 1 Grav) [facility] [id number] 21:21:00 Test Item Value Reference Range Interpretation Comments UA Color (test code = Yellow *NA*(06/03/18 4:21 UA Color) PM) [facility] AND [id number] 21:21:00 Test Item Value Reference Range Interpretation Comments UA pH (test code = UA pH) 6.0 1 5.0-8.0 [facility] AND [id number] 21:21:00 Test Item Value Reference Range Interpretation Comments UA Turbidity (test code = Clear (06/03/18 4:21 UA Turbidity) PM) [facility] AND [id number] 21:21:00 Test Item Value Reference Range Interpretation Comments UA Urobilinogen (test code = UA <=1.0 mg/dL 0.1-1.0 Urobilinogen) [facility] AND [id number] 21:21:00 Test Item Value Reference Range Interpretation Comments UA Leuk Est (test Negative (06/03/18 4:21 code = UA Leuk Est) PM) [facility] AND [id number] 21:21:00 Test Item Value Reference Range Interpretation Comments UA WBC (test code = no gt See_Comment [Automa denise message] The UA WBC) system which ge nerated this result transmit denise reference range : <=5. The reference range was not used to interpr et this result as vickie l/abnormal. [facility] AND [id number] 21:21:00 Test Item Value Reference Range Interpretation Comments UA RBC (test code = 3 See_Comment [Automa denise message] The UA RBC) system which ge nerated this result transmit denise reference range : <=2. The reference range was not used to interpr et this result as vickie l/abnormal. [facility] AND [id number] 21:21:00 Test Item Value Reference Range Interpretation Comments UA Mucus (test code = UA Mucus) Few /LPF [facility] AND [id number] 21:21:00 Test Item Value Reference Range Interpretation Comments UA Sq Epi (test code = UA Sq Epi) None Seen [facility] AND [id number] 21:21:00 Test Item Value Reference Range Interpretation Comments UA Nitrite (test code Negative (06/03/18 4:21 = UA Nitrite) PM) [facility] AND [id number] 21:21:00 Test Item Value Reference Range Interpretation Comments UA Blood (test code = Negative (06/03/18 4:21 UA Blood) PM) [facility] [id number] 21:21:00 Test Item Value Reference Range Interpretation Comments UA Bili (test code = Negative *NA*(06/03/18 UA Bili) 4:21 PM) [facility] [id number] 21:21:00 Test Item Value Reference Range Interpretation Comments UA Ketones (test code = UA Ketones) 20 mg/dL [facility] [id number] 21:21:00 Test Item Value Reference Range Interpretation Comments UA Glucose (test code = UA Negative mg/dL Glucose) [facility] [id number] 21:21:00 Test Item Value Reference Range Interpretation Comments UDS Note (test code = See Note (06/03/18 4:21 UDS Note) PM) [facility] [id number] 21:21:00 Test Item Value Reference Range Interpretation Comments U Phencyclidine Scr (test Negative *NA*(06/03/18 code = U Phencyclidine 4:21 PM) Scr) [facility] [id number] 21:21:00 Test Item Value Reference Range Interpretation Comments U Cannab Scr (test Positive *ABN*(06/03/18 code = U Cannab Scr) 4:21 PM) [facility] [id number] 21:21:00 Test Item Value Reference Range Interpretation Comments U Opiate Scr (test Negative *NA*(06/03/18 code = U Opiate Scr) 4:21 PM) [facility] [id number] 21:21:00 Test Item Value Reference Range Interpretation Comments U Amph Scr (test code Negative *NA*(06/03/18 = U Amph Scr) 4:21 PM) [facility] [id number] 21:21:00 Test Item Value Reference Range Interpretation Comments U Cocaine Scr (test Negative *NA*(06/03/18 code = U Cocaine Scr) 4:21 PM) [facility] [id number] 21:21:00 Test Item Value Reference Range Interpretation Comments U Luz Marina Scr (test code Negative *NA*(06/03/18 = U Luz Marina Scr) 4:21 PM) [facility] [id number] 21:21:00 Test Item Value Reference Range Interpretation Comments U Benzodiaz Scr (test Negative *NA*(06/03/18 code = U Benzodiaz Scr) 4:21 PM) [facility] [id number] 21:21:00 Test Item Value Reference Range Interpretation Comments UA Protein (test code = UA Negative mg/dL Protein) [facility] [id number] 21:21:00 Test Item Value Reference Range Interpretation Comments UA Spec Grav (test code = UA Spec 1.016 1 Grav) [facility] [id number] 21:21:00 Test Item Value Reference Range Interpretation Comments UA Color (test code = Yellow *NA*(06/03/18 4:21 UA Color) PM) [facility] [id number] 21:21:00 Test Item Value Reference Range Interpretation Comments UA pH (test code = UA pH) 6.0 1 5.0-8.0 [facility] [id number] 21:21:00 Test Item Value Reference Range Interpretation Comments UA Turbidity (test code = Clear (06/03/18 4:21 UA Turbidity) PM) [facility] [id number] 21:21:00 Test Item Value Reference Range Interpretation Comments UA Urobilinogen (test code = UA <=1.0 mg/dL 0.1-1.0 Urobilinogen) [facility] [id number] 21:21:00 Test Item Value Reference Range Interpretation Comments UA Leuk Est (test Negative (06/03/18 4:21 code = UA Leuk Est) PM) [facility] [id number] 21:21:00 Test Item Value Reference Range Interpretation Comments UA WBC (test code = no gt See_Comment [Automa denise message] The UA WBC) system which ge nerated this result transmit denise reference range : <=5. The reference range was not used to interpr et this result as vickie l/abnormal. [facility] [id number] 21:21:00 Test Item Value Reference Range Interpretation Comments UA RBC (test code = 3 See_Comment [Automa denise message] The UA RBC) system which ge nerated this result transmit denise reference range : <=2. The reference range was not used to interpr et this result as vickie l/abnormal. [facility] AND [id number] 21:21:00 Test Item Value Reference Range Interpretation Comments UA Mucus (test code = UA Mucus) Few /LPF [facility] AND [id number] 21:21:00 Test Item Value Reference Range Interpretation Comments UA Sq Epi (test code = UA Sq Epi) None Seen [facility] AND [id number] 21:21:00 Test Item Value Reference Range Interpretation Comments UA Nitrite (test code Negative (06/03/18 4:21 = UA Nitrite) PM) [facility] AND [id number] 21:21:00 Test Item Value Reference Range Interpretation Comments UA Blood (test code = Negative (06/03/18 4:21 UA Blood) PM) [facility] AND [id number] 21:21:00 Test Item Value Reference Range Interpretation Comments UA Bili (test code = Negative *NA*(06/03/18 UA Bili) 4:21 PM) [facility] AND [id number] 21:21:00 Test Item Value Reference Range Interpretation Comments UA Ketones (test code = UA Ketones) 20 mg/dL [facility] AND [id number] 21:21:00 Test Item Value Reference Range Interpretation Comments UA Glucose (test code = UA Negative mg/dL Glucose) [facility] [id number] 21:21:00 Test Item Value Reference Range Interpretation Comments UDS Note (test code = See Note (06/03/18 4:21 UDS Note) PM) [facility] [id number] 21:21:00 Test Item Value Reference Range Interpretation Comments U Phencyclidine Scr (test Negative *NA*(06/03/18 code = U Phencyclidine 4:21 PM) Scr) [facility] [id number] 21:21:00 Test Item Value Reference Range Interpretation Comments U Cannab Scr (test Positive *ABN*(06/03/18 code = U Cannab Scr) 4:21 PM) [facility] [id number] 21:21:00 Test Item Value Reference Range Interpretation Comments U Opiate Scr (test Negative *NA*(06/03/18 code = U Opiate Scr) 4:21 PM) [facility] [id number] 21:21:00 Test Item Value Reference Range Interpretation Comments U Amph Scr (test code Negative *NA*(06/03/18 = U Amph Scr) 4:21 PM) [facility] [id number] 21:21:00 Test Item Value Reference Range Interpretation Comments U Cocaine Scr (test Negative *NA*(06/03/18 code = U Cocaine Scr) 4:21 PM) [facility] [id number] 21:21:00 Test Item Value Reference Range Interpretation Comments U Luz Marina Scr (test code Negative *NA*(06/03/18 = U Luz Marina Scr) 4:21 PM) [facility] [id number] 21:21:00 Test Item Value Reference Range Interpretation Comments U Benzodiaz Scr (test Negative *NA*(06/03/18 code = U Benzodiaz Scr) 4:21 PM) [facility] [id number] 21:21:00 Test Item Value Reference Range Interpretation Comments UA Protein (test code = UA Negative mg/dL Protein) [facility] [id number] 21:21:00 Test Item Value Reference Range Interpretation Comments UA Spec Grav (test code = UA Spec 1.016 1 Grav) [facility] [id number] 21:21:00 Test Item Value Reference Range Interpretation Comments UA Color (test code = Yellow *NA*(06/03/18 4:21 UA Color) PM) [facility] [id number] 21:21:00 Test Item Value Reference Range Interpretation Comments UA pH (test code = UA pH) 6.0 1 5.0-8.0 [facility] [id number] 21:21:00 Test Item Value Reference Range Interpretation Comments UA Turbidity (test code = Clear (06/03/18 4:21 UA Turbidity) PM) [facility] [id number] 21:21:00 Test Item Value Reference Range Interpretation Comments UA Urobilinogen (test code = UA <=1.0 mg/dL 0.1-1.0 Urobilinogen) [facility] [id number] 21:21:00 Test Item Value Reference Range Interpretation Comments UA Leuk Est (test Negative (06/03/18 4:21 code = UA Leuk Est) PM) [facility] AND [id number] 21:21:00 Test Item Value Reference Range Interpretation Comments UA WBC (test code = no gt See_Comment [Automa denise message] The UA WBC) system which ge nerated this result transmit denise reference range : <=5. The reference range was not used to interpr et this result as vickie l/abnormal. [facility] AND [id number] 21:21:00 Test Item Value Reference Range Interpretation Comments UA RBC (test code = 3 See_Comment [Automa denise message] The UA RBC) system which ge nerated this result transmit denise reference range : <=2. The reference range was not used to interpr et this result as vickie l/abnormal. [facility] AND [id number] 21:21:00 Test Item Value Reference Range Interpretation Comments UA Mucus (test code = UA Mucus) Few /LPF [facility] AND [id number] 21:21:00 Test Item Value Reference Range Interpretation Comments UA Sq Epi (test code = UA Sq Epi) None Seen [facility] AND [id number] 21:21:00 Test Item Value Reference Range Interpretation Comments UA Nitrite (test code Negative (06/03/18 4:21 = UA Nitrite) PM) [facility] AND [id number] 21:21:00 Test Item Value Reference Range Interpretation Comments UA Blood (test code = Negative (06/03/18 4:21 UA Blood) PM) [facility] AND [id number] 21:21:00 Test Item Value Reference Range Interpretation Comments UA Bili (test code = Negative *NA*(06/03/18 UA Bili) 4:21 PM) [facility] AND [id number] 21:21:00 Test Item Value Reference Range Interpretation Comments UA Ketones (test code = UA Ketones) 20 mg/dL [facility] AND [id number] 21:21:00 Test Item Value Reference Range Interpretation Comments UA Glucose (test code = UA Negative mg/dL Glucose) [facility] [id number] 21:21:00 Test Item Value Reference Range Interpretation Comments UDS Note (test code = See Note (06/03/18 4:21 UDS Note) PM) [facility] [id number] 21:21:00 Test Item Value Reference Range Interpretation Comments U Phencyclidine Scr (test Negative *NA*(06/03/18 code = U Phencyclidine 4:21 PM) Scr) [facility] [id number] 21:21:00 Test Item Value Reference Range Interpretation Comments U Cannab Scr (test Positive *ABN*(06/03/18 code = U Cannab Scr) 4:21 PM) [facility] [id number] 21:21:00 Test Item Value Reference Range Interpretation Comments U Opiate Scr (test Negative *NA*(06/03/18 code = U Opiate Scr) 4:21 PM) [facility] [id number] 21:21:00 Test Item Value Reference Range Interpretation Comments U Amph Scr (test code Negative *NA*(06/03/18 = U Amph Scr) 4:21 PM) [facility] [id number] 21:21:00 Test Item Value Reference Range Interpretation Comments U Cocaine Scr (test Negative *NA*(06/03/18 code = U Cocaine Scr) 4:21 PM) [facility] [id number] 21:21:00 Test Item Value Reference Range Interpretation Comments U Luz Marina Scr (test code Negative *NA*(06/03/18 = U Luz Marina Scr) 4:21 PM) [facility] [id number] 21:21:00 Test Item Value Reference Range Interpretation Comments U Benzodiaz Scr (test Negative *NA*(06/03/18 code = U Benzodiaz Scr) 4:21 PM) [facility] [id number] 21:21:00 Test Item Value Reference Range Interpretation Comments UA Protein (test code = UA Negative mg/dL Protein) [facility] [id number] 21:21:00 Test Item Value Reference Range Interpretation Comments UA Spec Grav (test code = UA Spec 1.016 1 Grav) [facility] [id number] 21:21:00 Test Item Value Reference Range Interpretation Comments UA Color (test code = Yellow *NA*(06/03/18 4:21 UA Color) PM) [facility] [id number] 21:21:00 Test Item Value Reference Range Interpretation Comments UA pH (test code = UA pH) 6.0 1 5.0-8.0 [facility] AND [id number] 21:21:00 Test Item Value Reference Range Interpretation Comments UA Turbidity (test code = Clear (06/03/18 4:21 UA Turbidity) PM) [facility] AND [id number] 21:21:00 Test Item Value Reference Range Interpretation Comments UA Urobilinogen (test code = UA <=1.0 mg/dL 0.1-1.0 Urobilinogen) [facility] AND [id number] 21:21:00 Test Item Value Reference Range Interpretation Comments UA Leuk Est (test Negative (06/03/18 4:21 code = UA Leuk Est) PM) [facility] AND [id number] 21:21:00 Test Item Value Reference Range Interpretation Comments UA WBC (test code = no gt See_Comment [Automa denise message] The UA WBC) system which ge nerated this result transmit denise reference range : <=5. The reference range was not used to interpr et this result as vickie l/abnormal. [facility] AND [id number] 21:21:00 Test Item Value Reference Range Interpretation Comments UA RBC (test code = 3 See_Comment [Automa denise message] The UA RBC) system which ge nerated this result transmit denise reference range : <=2. The reference range was not used to interpr et this result as vickie l/abnormal. [facility] AND [id number] 21:21:00 Test Item Value Reference Range Interpretation Comments UA Mucus (test code = UA Mucus) Few /LPF [facility] AND [id number] 21:21:00 Test Item Value Reference Range Interpretation Comments UA Sq Epi (test code = UA Sq Epi) None Seen [facility] AND [id number] 21:21:00 Test Item Value Reference Range Interpretation Comments UA Nitrite (test code Negative (06/03/18 4:21 = UA Nitrite) PM) [facility] AND [id number] 21:21:00 Test Item Value Reference Range Interpretation Comments UA Blood (test code = Negative (06/03/18 4:21 UA Blood) PM) [facility] [id number] 21:21:00 Test Item Value Reference Range Interpretation Comments UA Bili (test code = Negative *NA*(06/03/18 UA Bili) 4:21 PM) [facility] [id number] 21:21:00 Test Item Value Reference Range Interpretation Comments UA Ketones (test code = UA Ketones) 20 mg/dL [facility] [id number] 21:21:00 Test Item Value Reference Range Interpretation Comments UA Glucose (test code = UA Negative mg/dL Glucose) [facility] [id number] 21:21:00 Test Item Value Reference Range Interpretation Comments UDS Note (test code = See Note (06/03/18 4:21 UDS Note) PM) [facility] [id number] 21:21:00 Test Item Value Reference Range Interpretation Comments U Phencyclidine Scr (test Negative *NA*(06/03/18 code = U Phencyclidine 4:21 PM) Scr) [facility] [id number] 21:21:00 Test Item Value Reference Range Interpretation Comments U Cannab Scr (test Positive *ABN*(06/03/18 code = U Cannab Scr) 4:21 PM) [facility] [id number] 21:21:00 Test Item Value Reference Range Interpretation Comments U Opiate Scr (test Negative *NA*(06/03/18 code = U Opiate Scr) 4:21 PM) [facility] [id number] 21:21:00 Test Item Value Reference Range Interpretation Comments U Amph Scr (test code Negative *NA*(06/03/18 = U Amph Scr) 4:21 PM) [facility] [id number] 21:21:00 Test Item Value Reference Range Interpretation Comments U Cocaine Scr (test Negative *NA*(06/03/18 code = U Cocaine Scr) 4:21 PM) [facility] [id number] 21:21:00 Test Item Value Reference Range Interpretation Comments U Luz Marina Scr (test code Negative *NA*(06/03/18 = U Luz Marina Scr) 4:21 PM) [facility] [id number] 21:21:00 Test Item Value Reference Range Interpretation Comments U Benzodiaz Scr (test Negative *NA*(06/03/18 code = U Benzodiaz Scr) 4:21 PM) [facility] AND [id number] 21:21:00 Test Item Value Reference Range Interpretation Comments UA Protein (test code = UA Negative mg/dL Protein) [facility] AND [id number] 21:21:00 Test Item Value Reference Range Interpretation Comments UA Spec Grav (test code = UA Spec 1.016 1 Grav) [facility] AND [id number] 21:21:00 Test Item Value Reference Range Interpretation Comments UA Color (test code = Yellow *NA*(06/03/18 4:21 UA Color) PM) [facility] AND [id number] 21:21:00 Test Item Value Reference Range Interpretation Comments UA pH (test code = UA pH) 6.0 1 5.0-8.0 [facility] AND [id number] 21:21:00 Test Item Value Reference Range Interpretation Comments UA Turbidity (test code = Clear (06/03/18 4:21 UA Turbidity) PM) [facility] AND [id number] 21:21:00 Test Item Value Reference Range Interpretation Comments UA Urobilinogen (test code = UA <=1.0 mg/dL 0.1-1.0 Urobilinogen) [facility] AND [id number] 21:21:00 Test Item Value Reference Range Interpretation Comments UA Leuk Est (test Negative (06/03/18 4:21 code = UA Leuk Est) PM) [facility] AND [id number] 21:21:00 Test Item Value Reference Range Interpretation Comments UA WBC (test code = no gt See_Comment [Automa denise message] The UA WBC) system which ge nerated this result transmit denise reference range : <=5. The reference range was not used to interpr et this result as vickie l/abnormal. [facility] AND [id number] 21:21:00 Test Item Value Reference Range Interpretation Comments UA RBC (test code = 3 See_Comment [Automa denise message] The UA RBC) system which ge nerated this result transmit denise reference range : <=2. The reference range was not used to interpr et this result as vickie l/abnormal. [facility] [id number] 21:21:00 Test Item Value Reference Range Interpretation Comments UA Mucus (test code = UA Mucus) Few /LPF [facility] [id number] 21:21:00 Test Item Value Reference Range Interpretation Comments UA Sq Epi (test code = UA Sq Epi) None Seen [facility] AND [id number] 21:21:00 Test Item Value Reference Range Interpretation Comments UA Nitrite (test code Negative (06/03/18 4:21 = UA Nitrite) PM) [facility] AND [id number] 21:21:00 Test Item Value Reference Range Interpretation Comments UA Blood (test code = Negative (06/03/18 4:21 UA Blood) PM) [facility] AND [id number] 21:21:00 Test Item Value Reference Range Interpretation Comments UA Bili (test code = Negative *NA*(06/03/18 UA Bili) 4:21 PM) [facility] AND [id number] 21:21:00 Test Item Value Reference Range Interpretation Comments UA Ketones (test code = UA Ketones) 20 mg/dL [facility] AND [id number] 21:21:00 Test Item Value Reference Range Interpretation Comments UA Glucose (test code = UA Negative mg/dL Glucose) [facility] [id number] 21:21:00 Test Item Value Reference Range Interpretation Comments UDS Note (test code = See Note (06/03/18 4:21 UDS Note) PM) [facility] [id number] 21:21:00 Test Item Value Reference Range Interpretation Comments U Phencyclidine Scr (test Negative *NA*(06/03/18 code = U Phencyclidine 4:21 PM) Scr) [facility] [facility] [id number] 21:21:00 Test Item Value Reference Range Interpretation Comments U Cannab Scr (test Positive *ABN*(06/03/18 code = U Cannab Scr) 4:21 PM) [facility] [id number] 21:21:00 Test Item Value Reference Range Interpretation Comments U Opiate Scr (test Negative *NA*(06/03/18 code = U Opiate Scr) 4:21 PM) [facility] [id number] 21:21:00 Test Item Value Reference Range Interpretation Comments U Amph Scr (test code Negative *NA*(06/03/18 = U Amph Scr) 4:21 PM) [facility] [id number] 21:21:00 Test Item Value Reference Range Interpretation Comments U Cocaine Scr (test Negative *NA*(06/03/18 code = U Cocaine Scr) 4:21 PM) [facility] [id number] 21:21:00 Test Item Value Reference Range Interpretation Comments U Luz Marina Scr (test code Negative *NA*(06/03/18 = U Luz Marina Scr) 4:21 PM) [facility] [id number] 21:21:00 Test Item Value Reference Range Interpretation Comments U Benzodiaz Scr (test Negative *NA*(06/03/18 code = U Benzodiaz Scr) 4:21 PM) [facility] [id number] 21:21:00 Test Item Value Reference Range Interpretation Comments UA Protein (test code = UA Negative mg/dL Protein) [facility] [id number] 21:21:00 Test Item Value Reference Range Interpretation Comments UA Spec Grav (test code = UA Spec 1.016 1 Grav) [facility] [id number] 21:21:00 Test Item Value Reference Range Interpretation Comments UA Color (test code = Yellow *NA*(06/03/18 4:21 UA Color) PM) [facility] [id number] 21:21:00 Test Item Value Reference Range Interpretation Comments UA pH (test code = UA pH) 6.0 1 5.0-8.0 [facility] [id number] 21:21:00 Test Item Value Reference Range Interpretation Comments UA Turbidity (test code = Clear (06/03/18 4:21 UA Turbidity) PM) [facility] [id number] 21:21:00 Test Item Value Reference Range Interpretation Comments UA Urobilinogen (test code = UA <=1.0 mg/dL 0.1-1.0 Urobilinogen) [facility] [id number] 21:21:00 Test Item Value Reference Range Interpretation Comments UA Leuk Est (test Negative (06/03/18 4:21 code = UA Leuk Est) PM) [facility] [id number] 21:21:00 Test Item Value Reference Range Interpretation Comments UA WBC (test code = no gt See_Comment [Automa denise message] The UA WBC) system which ge nerated this result transmit denise reference range : <=5. The reference range was not used to interpr et this result as vickie l/abnormal. [facility] [id number] 21:21:00 Test Item Value Reference Range Interpretation Comments UA RBC (test code = 3 See_Comment [Automa denise message] The UA RBC) system which ge nerated this result transmit denise reference range : <=2. The reference range was not used to interpr et this result as vickie l/abnormal. [facility] AND [id number] 21:21:00 Test Item Value Reference Range Interpretation Comments UA Mucus (test code = UA Mucus) Few /LPF [facility] AND [id number] 21:21:00 Test Item Value Reference Range Interpretation Comments UA Sq Epi (test code = UA Sq Epi) None Seen [facility] AND [id number] 21:21:00 Test Item Value Reference Range Interpretation Comments UA Nitrite (test code Negative (06/03/18 4:21 = UA Nitrite) PM) [facility] AND [id number] 21:21:00 Test Item Value Reference Range Interpretation Comments UA Blood (test code = Negative (06/03/18 4:21 UA Blood) PM) [facility] AND [id number] 21:21:00 Test Item Value Reference Range Interpretation Comments UA Bili (test code = Negative *NA*(06/03/18 UA Bili) 4:21 PM) [facility] AND [id number] 21:21:00 Test Item Value Reference Range Interpretation Comments UA Ketones (test code = UA Ketones) 20 mg/dL [facility] AND [id number] 21:21:00 Test Item Value Reference Range Interpretation Comments UA Glucose (test code = UA Negative mg/dL Glucose) [facility] [id number] 21:21:00 Test Item Value Reference Range Interpretation Comments UDS Note (test code = See Note (06/03/18 4:21 UDS Note) PM) [facility] [id number] 21:21:00 Test Item Value Reference Range Interpretation Comments U Phencyclidine Scr (test Negative *NA*(06/03/18 code = U Phencyclidine 4:21 PM) Scr) [facility] [id number] 21:21:00 Test Item Value Reference Range Interpretation Comments U Cannab Scr (test Positive *ABN*(06/03/18 code = U Cannab Scr) 4:21 PM) [facility] [id number] 21:21:00 Test Item Value Reference Range Interpretation Comments U Opiate Scr (test Negative *NA*(06/03/18 code = U Opiate Scr) 4:21 PM) [facility] [id number] 21:21:00 Test Item Value Reference Range Interpretation Comments U Amph Scr (test code Negative *NA*(06/03/18 = U Amph Scr) 4:21 PM) [facility] [id number] 21:21:00 Test Item Value Reference Range Interpretation Comments U Cocaine Scr (test Negative *NA*(06/03/18 code = U Cocaine Scr) 4:21 PM) [facility] [id number] 21:21:00 Test Item Value Reference Range Interpretation Comments U Luz Marina Scr (test code Negative *NA*(06/03/18 = U Luz Marina Scr) 4:21 PM) [facility] [id number] 21:21:00 Test Item Value Reference Range Interpretation Comments U Benzodiaz Scr (test Negative *NA*(06/03/18 code = U Benzodiaz Scr) 4:21 PM) [facility] [id number] 21:21:00 Test Item Value Reference Range Interpretation Comments UA Protein (test code = UA Negative mg/dL Protein) [facility] [id number] 21:21:00 Test Item Value Reference Range Interpretation Comments UA Spec Grav (test code = UA Spec 1.016 1 Grav) [facility] [id number] 21:21:00 Test Item Value Reference Range Interpretation Comments UA Color (test code = Yellow *NA*(06/03/18 4:21 UA Color) PM) [facility] [id number] 16:21:00 Test Item Value Reference Range Interpretation Comments Troponin-I (test code no gt See_Comment [Auto mated message] The = Troponin-I) system which g enerated this result transmit denise reference range : <=0.40. The reference r tc was not used to interpr et this result as vickie l/abnormal. [facility] Guide [id number] 16:21:00 Test Item Value Reference Range Interpretation Comments CK MB (test code = CK MB) no gt 0.5-3.6 [facility] [id number] 16:21:00 Test Item Value Reference Range Interpretation Comments Total CK (test code = Total CK) 87 12-191 [facility] Guide [id number] 16:21:00 Test Item Value Reference Range Interpretation Comments CK MB Index (test no gt See_Comment [Automate d message] The code = CK MB Index) [facility] transmit denise reference range : <=2.5. The reference range was not used to interpr et this result as vickie l/abnormal. [employer] [id number] 16:21:00 Test Item Value Reference Range Interpretation Comments Lipase Lvl (test code = Lipase Lvl) 132 73-393 [facility] [employer] [id number] 16:21:00 Test Item Value Reference Range Interpretation Comments eGFR (test code = eGFR) 99 [facility] [employer] [id number] 16:21:00 Test Item Value Reference Range Interpretation Comments Alk Phos (test code = Alk Phos) 65 39-136 [facility] [employer] [facility] [id number] 16:21:00 Test Item Value Reference Range Interpretation Comments Bili Total (test code = Bili Total) 0.5 0.2-1.3 [facility] [employer] [facility] [id number] 16:21:00 Test Item Value Reference Range Interpretation Comments A/G Ratio (test code = A/G Ratio) 1.1 1 0.7-1.6 [facility] [employer] [facility] [id number] 16:21:00 Test Item Value Reference Range Interpretation Comments Globulin (test code = Globulin) 3.8 2.7-4.2 [facility] [employer] [facility] [id number] 16:21:00 Test Item Value Reference Range Interpretation Comments B/C Ratio (test code = B/C Ratio) 15 1 6-25 [facility]2018-08-09 16:21:00 Test Item Value Reference Range Interpretation Comments AST (test code = AST) 17 See_Comment [Auto mated message] The system which ge nerated this result transmit denise reference range : <=37. The reference range was not used to interpr et this result as vickie l/abnormal. [facility]2018-08-09 16:21:00 Test Item Value Reference Range Interpretation Comments Total Protein (test code = Total 8.1 6.4-8.4 Protein) [facility]2018-08-09 16:21:00 Test Item Value Reference Range Interpretation Comments Creatinine Lvl (test code = Creatinine 1.01 0.50-1.40 Lvl) [facility]2018-08-09 16:21:00 Test Item Value Reference Range Interpretation Comments Potassium Lvl (test code = Potassium 4.3 3.5-5.1 Lvl) [facility]2018-08-09 16:21:00 Test Item Value Reference Range Interpretation Comments Sodium Lvl (test code = Sodium Lvl) 141 135-145 [facility]2018-08-09 16:21:00 Test Item Value Reference Range Interpretation Comments BUN (test code = BUN) 15 7-22 [facility]2018-08-09 16:21:00 Test Item Value Reference Range Interpretation Comments AGAP (test code = AGAP) 12.3 10.0-20.0 [facility]2018-08-09 16:21:00 Test Item Value Reference Range Interpretation Comments Chloride Lvl (test code = Chloride Lvl) 105 95-109 [facility]2018-08-09 16:21:00 Test Item Value Reference Range Interpretation Comments Albumin Lvl (test code = Albumin Lvl) 4.3 3.5-5.0 [facility]2018-08-09 16:21:00 Test Item Value Reference Range Interpretation Comments Glucose Lvl (test code = Glucose Lvl) 138 70-99 [facility]2018-08-09 16:21:00 Test Item Value Reference Range Interpretation Comments ALT (test code = ALT) 28 See_Comment [Auto mated message] The system which ge nerated this result transmit denise reference range : <=65. The reference range was not used to interpr et this result as vickie l/abnormal. [facility]2018-08-09 16:21:00 Test Item Value Reference Range Interpretation Comments Calcium Lvl (test code = Calcium Lvl) 9.1 8.5-10.5 [facility]2018-08-09 16:21:00 Test Item Value Reference Range Interpretation Comments CO2 (test code = CO2) 28 24-32 [facility]2018-08-09 16:21:00 Test Item Value Reference Range Interpretation Comments Magnesium Lvl (test code = Magnesium 2.1 1.8-2.4 Lvl) [facility] [id number] 16:21:00 Test Item Value Reference Range Interpretation Comments Hgb (test code = Hgb) 16.0 14.0-18.0 [facility] [id number] 16:21:00 Test Item Value Reference Range Interpretation Comments MCV (test code = MCV) 92.3 80.0-94.0 [facility] [id number] 16:21:00 Test Item Value Reference Range Interpretation Comments Hct (test code = Hct) 47.1 42.0-54.0 [facility] [id number] 16:21:00 Test Item Value Reference Range Interpretation Comments MCHC (test code = MCHC) 34.0 32.0-36.0 [facility] [id number] 16:21:00 Test Item Value Reference Range Interpretation Comments MCH (test code = MCH) 31.4 pg 27.0-31.0 [facility] [id number] 16:21:00 Test Item Value Reference Range Interpretation Comments MPV (test code = MPV) 7.7 7.4-10.4 [facility] Cent[id number] 16:21:00 Test Item Value Reference Range Interpretation Comments RDW (test code = RDW) 13.1 11.5-14.5 [facility] [id number] 16:21:00 Test Item Value Reference Range Interpretation Comments Platelet (test code = Platelet) 236 133-450 [facility] [id number] 16:21:00 Test Item Value Reference Range Interpretation Comments WBC (test code = WBC) 5.9 3.7-10.4 [facility] Cent[id number] 16:21:00 Test Item Value Reference Range Interpretation Comments RBC (test code = RBC) 5.10 4.70-6.10 [facility] [id number] 16:21:00 Test Item Value Reference Range Interpretation Comments Basophils # (test code 0.1 See_Comment [Aut omated message] The = Basophils #) system which generated this result tra nsmitted reference range : <=0.2. The reference r tc was not used to int erpret this result as normal/abnormal . [facility] C[id number] 16:21:00 Test Item Value Reference Range Interpretation Comments Monocytes # (test code 0.5 See_Comment [Aut omated message] The = Monocytes #) system which generated this result tra nsmitted reference range : <=0.8. The reference r tc was not used to int erpret this result as normal/abnormal . [facility] CenterYycycqbIXENQCQDDN1707-11-23 16:21:00 Test Item Value Reference Range Interpretation Comments Eosinophils # (test code 0.1 See_Comment [A utomated message] The = Eosinophils #) system whic h generated this result tra nsmitted reference range : <=0.5. The reference r tc was not used to int erpret this result as normal/abnormal . [facility] CenterQtvmwxnBRPWSUGTIV7289-09-99 16:21:00 Test Item Value Reference Range Interpretation Comments Lymphocytes # (test code = Lymphocytes 2.3 1.0-5.5 #) [facility] Cent[id number] 16:21:00 Test Item Value Reference Range Interpretation Comments Segs (test code = Segs) 51.8 45.0-75.0 [facility] CenterKnnsbnmIGAECIYLNE3224-03-79 16:21:00 Test Item Value Reference Range Interpretation Comments Monocytes (test code = Monocytes) 7.9 2.0-12.0 [facility] C[id number] 16:21:00 Test Item Value Reference Range Interpretation Comments Lymphocytes (test code = Lymphocytes) 38.2 20.0-40.0 [facility] Cent[id number] 16:21:00 Test Item Value Reference Range Interpretation Comments Basophils (test code = 1.0 See_Comment [Aut omated message] The Basophils) system which ge nerated this result tra nsmitted reference range : <=1.0. The reference r tc was not used to int erpret this result as normal/abnormal . [facility] [id number] 16:21:00 Test Item Value Reference Range Interpretation Comments Eosinophils (test code = 1.1 See_Comment [A utomated message] The Eosinophils) system which ge nerated this result tra nsmitted reference range : <=4.0. The reference r tc was not used to int erpret this result as normal/abnormal . RewalonXgsxoezRETXSUEOZO5350-94-68 16:21:00 Test Item Value Reference Range Interpretation Comments Neutrophils # (test code = Neutrophils 3.1 1.5-8.1 #) [facility] Guide [id number] 16:21:00 Test Item Value Reference Range Interpretation Comments Troponin-I (test code no gt See_Comment [Auto mated message] The = Troponin-I) system which g enerated this result transmit denise reference range : <=0.40. The reference r tc was not used to interpr et this result as vickie l/abnormal. [facility] [employer]2018-08-09 16:21:00 Test Item Value Reference Range Interpretation Comments CK MB (test code = CK MB) no gt 0.5-3.6 [facility] Guide [id number] 16:21:00 Test Item Value Reference Range Interpretation Comments Total CK (test code = Total CK) 87 12-191 [facility] [employer]2018-08-09 16:21:00 Test Item Value Reference Range Interpretation Comments CK MB Index (test no gt See_Comment [Automate d message] The code = CK MB Index) system w [facility] generated this result transmit denise reference range : <=2.5. The reference range was not used to interpr et this result as vickie l/abnormal. [employer] [id number] 16:21:00 Test Item Value Reference Range Interpretation Comments Lipase Lvl (test code = Lipase Lvl) 132 73-393 [facility] [employer] [id number] 16:21:00 Test Item Value Reference Range Interpretation Comments eGFR (test code = eGFR) 99 [facility] [employer] [id number] 16:21:00 Test Item Value Reference Range Interpretation Comments Alk Phos (test code = Alk Phos) 65 39-136 [facility]2018-08-09 16:21:00 Test Item Value Reference Range Interpretation Comments Bili Total (test code = Bili Total) 0.5 0.2-1.3 [facility]2018-08-09 16:21:00 Test Item Value Reference Range Interpretation Comments A/G Ratio (test code = A/G Ratio) 1.1 1 0.7-1.6 [facility]2018-08-09 16:21:00 Test Item Value Reference Range Interpretation Comments Globulin (test code = Globulin) 3.8 2.7-4.2 [facility]2018-08-09 16:21:00 Test Item Value Reference Range Interpretation Comments B/C Ratio (test code = B/C Ratio) 15 1 6-25 [facility]2018-08-09 16:21:00 Test Item Value Reference Range Interpretation Comments AST (test code = AST) 17 See_Comment [Auto mated message] The system which ge nerated this result transmit denise reference range : <=37. The reference range was not used to interpr et this result as vickie l/abnormal. [facility]2018-08-09 16:21:00 Test Item Value Reference Range Interpretation Comments Total Protein (test code = Total 8.1 6.4-8.4 Protein) [facility]2018-08-09 16:21:00 Test Item Value Reference Range Interpretation Comments Creatinine Lvl (test code = Creatinine 1.01 0.50-1.40 Lvl) [facility]2018-08-09 16:21:00 Test Item Value Reference Range Interpretation Comments Potassium Lvl (test code = Potassium 4.3 3.5-5.1 Lvl) [facility]2018-08-09 16:21:00 Test Item Value Reference Range Interpretation Comments Sodium Lvl (test code = Sodium Lvl) 141 135-145 [facility]2018-08-09 16:21:00 Test Item Value Reference Range Interpretation Comments BUN (test code = BUN) 15 7-22 [facility]2018-08-09 16:21:00 Test Item Value Reference Range Interpretation Comments AGAP (test code = AGAP) 12.3 10.0-20.0 [facility]2018-08-09 16:21:00 Test Item Value Reference Range Interpretation Comments Chloride Lvl (test code = Chloride Lvl) 105 95-109 [facility]2018-08-09 16:21:00 Test Item Value Reference Range Interpretation Comments Albumin Lvl (test code = Albumin Lvl) 4.3 3.5-5.0 [facility]2018-08-09 16:21:00 Test Item Value Reference Range Interpretation Comments Glucose Lvl (test code = Glucose Lvl) 138 70-99 [facility]2018-08-09 16:21:00 Test Item Value Reference Range Interpretation Comments ALT (test code = ALT) 28 See_Comment [Auto mated message] The system which ge nerated this result transmit denise reference range : <=65. The reference range was not used to interpr et this result as vickie l/abnormal. [facility]2018-08-09 16:21:00 Test Item Value Reference Range Interpretation Comments Calcium Lvl (test code = Calcium Lvl) 9.1 8.5-10.5 [facility]2018-08-09 16:21:00 Test Item Value Reference Range Interpretation Comments CO2 (test code = CO2) 28 24-32 [facility]2018-08-09 16:21:00 Test Item Value Reference Range Interpretation Comments Magnesium Lvl (test code = Magnesium 2.1 1.8-2.4 Lvl) [facility] CenterAvvwrseFSYNHORUEJ1924-29-79 16:21:00 Test Item Value Reference Range Interpretation Comments Hgb (test code = Hgb) 16.0 14.0-18.0 [facility] Cent[id number] 16:21:00 Test Item Value Reference Range Interpretation Comments MCV (test code = MCV) 92.3 80.0-94.0 [facility] CenterMfnaacnHHJGEKZQZI6563-98-75 16:21:00 Test Item Value Reference Range Interpretation Comments Hct (test code = Hct) 47.1 42.0-54.0 [facility] CenterZywdourRZKKAUTHGA4239-53-90 16:21:00 Test Item Value Reference Range Interpretation Comments MCHC (test code = MCHC) 34.0 32.0-36.0 [place] [id number] 16:21:00 Test Item Value Reference Range Interpretation Comments MCH (test code = MCH) 31.4 pg 27.0-31.0 [facility] CenterApsnafaVPRMHXXMFS9963-14-54 16:21:00 Test Item Value Reference Range Interpretation Comments MPV (test code = MPV) 7.7 7.4-10.4 [facility] CenterPaozsekQLUGABEVML7789-53-63 16:21:00 Test Item Value Reference Range Interpretation Comments RDW (test code = RDW) 13.1 11.5-14.5 [facility] CenterGggwyunBKNPJBPGKM6397-54-94 16:21:00 Test Item Value Reference Range Interpretation Comments Platelet (test code = Platelet) 236 133-450 [facility] CenterFpforjtWFDTKUQCWU9107-35-59 16:21:00 Test Item Value Reference Range Interpretation Comments WBC (test code = WBC) 5.9 3.7-10.4 [facility] CenterGwdfnddBSRCRZPURJ0631-20-93 16:21:00 Test Item Value Reference Range Interpretation Comments RBC (test code = RBC) 5.10 4.70-6.10 [facility] CenterQjqufmdWGRQYPETXM0157-84-16 16:21:00 Test Item Value Reference Range Interpretation Comments Basophils # (test code 0.1 See_Comment [Aut omated message] The = Basophils #) system which generated this result tra nsmitted reference range : <=0.2. The reference r tc was not used to int erpret this result as normal/abnormal . [facility] CenterCmanjrrQPWMYZYCZD6105-86-19 16:21:00 Test Item Value Reference Range Interpretation Comments Monocytes # (test code 0.5 See_Comment [Aut omated message] The = Monocytes #) system which generated this result tra nsmitted reference range : <=0.8. The reference r tc was not used to int erpret this result as normal/abnormal . [facility] CenterTzgdpdhNZMGEZDHNV5197-70-93 16:21:00 Test Item Value Reference Range Interpretation Comments Eosinophils # (test code 0.1 See_Comment [A utomated message] The = Eosinophils #) system whic h generated this result tra nsmitted reference range : <=0.5. The reference r tc was not used to int erpret this result as normal/abnormal . [facility] CenterXgqqdfxZTAICZBMFO6621-35-64 16:21:00 Test Item Value Reference Range Interpretation Comments Lymphocytes # (test code = Lymphocytes 2.3 1.0-5.5 #) [facility] CenterXrfsjrvPWFWGTCZOO8090-41-30 16:21:00 Test Item Value Reference Range Interpretation Comments Segs (test code = Segs) 51.8 45.0-75.0 [facility] CenterGnqurwvQNCAZUTSMN7776-73-05 16:21:00 Test Item Value Reference Range Interpretation Comments Monocytes (test code = Monocytes) 7.9 2.0-12.0 [facility] CenterOcgoclhVQDHZILGIS9683-32-22 16:21:00 Test Item Value Reference Range Interpretation Comments Lymphocytes (test code = Lymphocytes) 38.2 20.0-40.0 [facility]AG[facility] 16:21:00 Test Item Value Reference Range Interpretation Comments Basophils (test code = 1.0 See_Comment [Aut omated message] The Basophils) system which ge nerated this result tra nsmitted reference range : <=1.0. The reference r tc was not used to int erpret this result as normal/abnormal . [facility] CenterSydhsxvCLWPTVVEJA9406-20-95 16:21:00 Test Item Value Reference Range Interpretation Comments Eosinophils (test code = 1.1 See_Comment [A utomated message] The Eosinophils) system which ge nerated this result tra nsmitted reference range : <=4.0. The reference r tc was not used to int erpret this result as normal/abnormal . [facility] CenterJcgucwyUOFWBJIIRH3377-66-65 16:21:00 Test Item Value Reference Range Interpretation Comments Neutrophils # (test code = Neutrophils 3.1 1.5-8.1 #) [facility]kinNonaboxBAPT[facility]UCA[facility] [id number] 16:21:00 Test Item Value Reference Range Interpretation Comments Troponin-I (test code no gt See_Comment [Auto mated message] The = Troponin-I) system which g enerated this result transmit denise reference range : <=0.40. The reference r tc was not used to interpr et this result as vickie l/abnormal. [facility] [id number] 16:21:00 Test Item Value Reference Range Interpretation Comments CK MB (test code = CK MB) no gt 0.5-3.6 [facility] [id number] 16:21:00 Test Item Value Reference Range Interpretation Comments Total CK (test code = Total CK) 87 12-191 [facility] [id number] 16:21:00 Test Item Value Reference Range Interpretation Comments CK MB Index (test no gt See_Comment [Automate d message] The code = CK MB Index) system w [facility] generated this result transmit denise reference range : <=2.5. The reference range was not used to interpr et this result as vickie l/abnormal. [facility] [employer] [id number] 16:21:00 Test Item Value Reference Range Interpretation Comments Lipase Lvl (test code = Lipase Lvl) 132 73-393 [facility] [employer] [id number] 16:21:00 Test Item Value Reference Range Interpretation Comments eGFR (test code = eGFR) 99 [facility] [id number] 16:21:00 Test Item Value Reference Range Interpretation Comments Alk Phos (test code = Alk Phos) 65 39-136 [facility] [employer] [id number] 16:21:00 Test Item Value Reference Range Interpretation Comments Bili Total (test code = Bili Total) 0.5 0.2-1.3 [facility] [employer] [id number] 16:21:00 Test Item Value Reference Range Interpretation Comments A/G Ratio (test code = A/G Ratio) 1.1 1 0.7-1.6 [facility] [id number] 16:21:00 Test Item Value Reference Range Interpretation Comments Globulin (test code = Globulin) 3.8 2.7-4.2 [facility] [employer] [id number] 16:21:00 Test Item Value Reference Range Interpretation Comments B/C Ratio (test code = B/C Ratio) 15 1 6-25 [facility] [employer] [id number] 16:21:00 Test Item Value Reference Range Interpretation Comments AST (test code = AST) 17 See_Comment [Auto mated message] The system which ge nerated this result transmit denise reference range : <=37. The reference range was not used to interpr et this result as vickie l/abnormal. [facility] [employer] [id number] 16:21:00 Test Item Value Reference Range Interpretation Comments Total Protein (test code = Total 8.1 6.4-8.4 Protein) [facility]2018-08-09 16:21:00 Test Item Value Reference Range Interpretation Comments Creatinine Lvl (test code = Creatinine 1.01 0.50-1.40 Lvl) [facility]2018-08-09 16:21:00 Test Item Value Reference Range Interpretation Comments Potassium Lvl (test code = Potassium 4.3 3.5-5.1 Lvl) [facility]2018-08-09 16:21:00 Test Item Value Reference Range Interpretation Comments Sodium Lvl (test code = Sodium Lvl) 141 135-145 [facility]2018-08-09 16:21:00 Test Item Value Reference Range Interpretation Comments BUN (test code = BUN) 15 7-22 [facility]2018-08-09 16:21:00 Test Item Value Reference Range Interpretation Comments AGAP (test code = AGAP) 12.3 10.0-20.0 [facility]2018-08-09 16:21:00 Test Item Value Reference Range Interpretation Comments Chloride Lvl (test code = Chloride Lvl) 105 95-109 [facility]2018-08-09 16:21:00 Test Item Value Reference Range Interpretation Comments Albumin Lvl (test code = Albumin Lvl) 4.3 3.5-5.0 [facility]2018-08-09 16:21:00 Test Item Value Reference Range Interpretation Comments Glucose Lvl (test code = Glucose Lvl) 138 70-99 [facility]2018-08-09 16:21:00 Test Item Value Reference Range Interpretation Comments ALT (test code = ALT) 28 See_Comment [Auto mated message] The system which ge nerated this result transmit denise reference range : <=65. The reference range was not used to interpr et this result as vickie l/abnormal. [facility]2018-08-09 16:21:00 Test Item Value Reference Range Interpretation Comments Calcium Lvl (test code = Calcium Lvl) 9.1 8.5-10.5 [facility]2018-08-09 16:21:00 Test Item Value Reference Range Interpretation Comments CO2 (test code = CO2) 28 24-32 [facility]2018-08-09 16:21:00 Test Item Value Reference Range Interpretation Comments Magnesium Lvl (test code = Magnesium 2.1 1.8-2.4 Lvl) [facility] [id number] 16:21:00 Test Item Value Reference Range Interpretation Comments Hgb (test code = Hgb) 16.0 14.0-18.0 [facility] C[id number] 16:21:00 Test Item Value Reference Range Interpretation Comments MCV (test code = MCV) 92.3 80.0-94.0 [facility] [id number] 16:21:00 Test Item Value Reference Range Interpretation Comments Hct (test code = Hct) 47.1 42.0-54.0 [facility] CenterGtblhsdBDVNBFDVXE6129-84-85 16:21:00 Test Item Value Reference Range Interpretation Comments MCHC (test code = MCHC) 34.0 32.0-36.0 [facility] CenterIfsecyjDWNLXMXPWY5680-72-52 16:21:00 Test Item Value Reference Range Interpretation Comments MCH (test code = MCH) 31.4 pg 27.0-31.0 [facility] Cent[id number] 16:21:00 Test Item Value Reference Range Interpretation Comments MPV (test code = MPV) 7.7 7.4-10.4 [facility] [id number] 16:21:00 Test Item Value Reference Range Interpretation Comments RDW (test code = RDW) 13.1 11.5-14.5 [facility] Cent[id number] 16:21:00 Test Item Value Reference Range Interpretation Comments Platelet (test code = Platelet) 236 133-450 [facility] CenterTvquayqHLUKVOXEWL6877-95-19 16:21:00 Test Item Value Reference Range Interpretation Comments WBC (test code = WBC) 5.9 3.7-10.4 [facility] Cent[id number] 16:21:00 Test Item Value Reference Range Interpretation Comments RBC (test code = RBC) 5.10 4.70-6.10 [facility] Cent[id number] 16:21:00 Test Item Value Reference Range Interpretation Comments Basophils # (test code 0.1 See_Comment [Aut omated message] The = Basophils #) system which generated this result tra nsmitted reference range : <=0.2. The reference r tc was not used to int erpret this result as normal/abnormal . [facility] CenterVozoavyFEHJXZLRYQ1709-78-30 16:21:00 Test Item Value Reference Range Interpretation Comments Monocytes # (test code 0.5 See_Comment [Aut omated message] The = Monocytes #) system which generated this result tra nsmitted reference range : <=0.8. The reference r tc was not used to int erpret this result as normal/abnormal . [facility] CenterKwsxjpoCMKQWEQRYY7191-31-57 16:21:00 Test Item Value Reference Range Interpretation Comments Eosinophils # (test code 0.1 See_Comment [A utomated message] The = Eosinophils #) system whic h generated this result tra nsmitted reference range : <=0.5. The reference r tc was not used to int erpret this result as normal/abnormal . [facility] CenterCoxvrolWZYVLZZJOG7956-08-66 16:21:00 Test Item Value Reference Range Interpretation Comments Lymphocytes # (test code = Lymphocytes 2.3 1.0-5.5 #) [facility] [id number] 16:21:00 Test Item Value Reference Range Interpretation Comments Segs (test code = Segs) 51.8 45.0-75.0 [facility] Cent[id number] 16:21:00 Test Item Value Reference Range Interpretation Comments Monocytes (test code = Monocytes) 7.9 2.0-12.0 [facility] [id number] 16:21:00 Test Item Value Reference Range Interpretation Comments Lymphocytes (test code = Lymphocytes) 38.2 20.0-40.0 [facility] [id number] 16:21:00 Test Item Value Reference Range Interpretation Comments Basophils (test code = 1.0 See_Comment [Aut omated message] The Basophils) system which ge nerated this result tra nsmitted reference range : <=1.0. The reference r tc was not used to int erpret this result as normal/abnormal . [facility] CenterBbnypamSBNXCNRLPW3475-13-48 16:21:00 Test Item Value Reference Range Interpretation Comments Eosinophils (test code = 1.1 See_Comment [A utomated message] The Eosinophils) system which ge nerated this result tra nsmitted reference range : <=4.0. The reference r tc was not used to int erpret this result as normal/abnormal . [facility] CenterOlflujfQEQDWCTHFX3596-94-40 16:21:00 Test Item Value Reference Range Interpretation Comments Neutrophils # (test code = Neutrophils 3.1 1.5-8.1 #) [facility]kinNonaboxBAPT[facility]ADUCA[facility] [id number] 16:21:00 Test Item Value Reference Range Interpretation Comments Troponin-I (test code no gt See_Comment [Auto mated message] The = Troponin-I) system which g enerated this result transmit denise reference range : <=0.40. The reference r tc was not used to interpr et this result as vickie l/abnormal. [facility]InfinisourceBAP[facility]CA[facility] [id number] 16:21:00 Test Item Value Reference Range Interpretation Comments CK MB (test code = CK MB) no gt 0.5-3.6 [facility] [id number] 16:21:00 Test Item Value Reference Range Interpretation Comments Troponin-I (test code no gt See_Comment [Auto mated message] The = Troponin-I) system which g enerated this result transmit denise reference range : <=0.40. The reference r tc was not used to interpr et this result as vickie l/abnormal. [facility] [id number] 16:21:00 Test Item Value Reference Range Interpretation Comments Total CK (test code = Total CK) 87 12-191 [facility] [id number] 16:21:00 Test Item Value Reference Range Interpretation Comments CK MB Index (test no gt See_Comment [Automate d message] The code = CK MB Index) system w [facility] generated this result transmit denise reference range : <=2.5. The reference range was not used to interpr et this result as vickie l/abnormal. [facility] [employer]2018-08-09 16:21:00 Test Item Value Reference Range Interpretation Comments Lipase Lvl (test code = Lipase Lvl) 132 73-393 [facility] [employer]2018-08-09 16:21:00 Test Item Value Reference Range Interpretation Comments eGFR (test code = eGFR) 99 [facility] [employer]2018-08-09 16:21:00 Test Item Value Reference Range Interpretation Comments Alk Phos (test code = Alk Phos) 65 39-136 [facility] [employer] [id number] 16:21:00 Test Item Value Reference Range Interpretation Comments Bili Total (test code = Bili Total) 0.5 0.2-1.3 [facility] [id number] 16:21:00 Test Item Value Reference Range Interpretation Comments A/G Ratio (test code = A/G Ratio) 1.1 1 0.7-1.6 [facility]ufkinBrowsercast.[facility] [id number] 16:21:00 Test Item Value Reference Range Interpretation Comments Globulin (test code = Globulin) 3.8 2.7-4.2 [facility] [id number] 16:21:00 Test Item Value Reference Range Interpretation Comments B/C Ratio (test code = B/C Ratio) 15 1 6-25 [facility] [id number] 16:21:00 Test Item Value Reference Range Interpretation Comments AST (test code = AST) 17 See_Comment [Auto mated message] The system which ge nerated this result transmit denise reference range : <=37. The reference range was not used to interpr et this result as vickie l/abnormal. [facility]kinCARDI[facility] [id number] 16:21:00 Test Item Value Reference Range Interpretation Comments CK MB (test code = CK MB) no gt 0.5-3.6 [facility] [employer] [id number] 16:21:00 Test Item Value Reference Range Interpretation Comments Total Protein (test code = Total 8.1 6.4-8.4 Protein) [facility] [id number] 16:21:00 Test Item Value Reference Range Interpretation Comments Creatinine Lvl (test code = Creatinine 1.01 0.50-1.40 Lvl) [facility] [id number] 16:21:00 Test Item Value Reference Range Interpretation Comments Potassium Lvl (test code = Potassium 4.3 3.5-5.1 Lvl) [facility] [id number] 16:21:00 Test Item Value Reference Range Interpretation Comments Sodium Lvl (test code = Sodium Lvl) 141 135-145 [facility] [id number] 16:21:00 Test Item Value Reference Range Interpretation Comments BUN (test code = BUN) 15 7-22 [facility] [id number] 16:21:00 Test Item Value Reference Range Interpretation Comments AGAP (test code = AGAP) 12.3 10.0-20.0 [facility] [id number] 16:21:00 Test Item Value Reference Range Interpretation Comments Chloride Lvl (test code = Chloride Lvl) 105 95-109 [facility]2018-08-09 16:21:00 Test Item Value Reference Range Interpretation Comments Albumin Lvl (test code = Albumin Lvl) 4.3 3.5-5.0 [facility]2018-08-09 16:21:00 Test Item Value Reference Range Interpretation Comments Glucose Lvl (test code = Glucose Lvl) 138 70-99 [facility]2018-08-09 16:21:00 Test Item Value Reference Range Interpretation Comments ALT (test code = ALT) 28 See_Comment [Auto mated message] The system which ge nerated this result transmit denise reference range : <=65. The reference range was not used to interpr et this result as vickie l/abnormal. [facility] [id number] 16:21:00 Test Item Value Reference Range Interpretation Comments Total CK (test code = Total CK) 87 12-191 [facility] [id number] 16:21:00 Test Item Value Reference Range Interpretation Comments Calcium Lvl (test code = Calcium Lvl) 9.1 8.5-10.5 [facility] [id number] 16:21:00 Test Item Value Reference Range Interpretation Comments CO2 (test code = CO2) 28 24-32 [facility]2018-08-09 16:21:00 Test Item Value Reference Range Interpretation Comments Magnesium Lvl (test code = Magnesium 2.1 1.8-2.4 Lvl) [facility] Lufk[id number] 16:21:00 Test Item Value Reference Range Interpretation Comments Hgb (test code = Hgb) 16.0 14.0-18.0 [facility] Lufk[id number] 16:21:00 Test Item Value Reference Range Interpretation Comments MCV (test code = MCV) 92.3 80.0-94.0 [facility]vcggsxTHUEQLEVKI4743-[facility]-95 16:21:00 Test Item Value Reference Range Interpretation Comments Hct (test code = Hct) 47.1 42.0-54.0 [facility]awUcggovbQVMZJNWDHP2129-31-98 16:21:00 Test Item Value Reference Range Interpretation Comments MCHC (test code = MCHC) 34.0 32.0-36.0 [facility] CenterV[id number] 16:21:00 Test Item Value Reference Range Interpretation Comments MCH (test code = MCH) 31.4 pg 27.0-31.0 [facility] [id number] 16:21:00 Test Item Value Reference Range Interpretation Comments MPV (test code = MPV) 7.7 7.4-10.4 [facility] CenterIdkastqNZATPSQXNV3851-79-59 16:21:00 Test Item Value Reference Range Interpretation Comments RDW (test code = RDW) 13.1 11.5-14.5 [facility]2018-08-09 16:21:00 Test Item Value Reference Range Interpretation Comments CK MB Index (test no gt See_Comment [Automate d message] The code = CK MB Index) system w [facility] generated this result transmit denise reference range : <=2.5. The reference range was not used to interpr et this result as vickie l/abnormal. [facility] CenterXvdrpruTPNVQTWYZL7863-21-26 16:21:00 Test Item Value Reference Range Interpretation Comments Platelet (test code = Platelet) 236 133-450 [facility] CenterJzdmnetPCDNMLWSXY1223-01-89 16:21:00 Test Item Value Reference Range Interpretation Comments WBC (test code = WBC) 5.9 3.7-10.4 [facility] CenterUjhzrgqCLDSJPCCLM2975-48-09 16:21:00 Test Item Value Reference Range Interpretation Comments RBC (test code = RBC) 5.10 4.70-6.10 [facility] CenterYoeulrgQRYGOCYLPD5030-15-11 16:21:00 Test Item Value Reference Range Interpretation Comments Basophils # (test code 0.1 See_Comment [Aut omated message] The = Basophils #) system which generated this result tra nsmitted reference range : <=0.2. The reference r tc was not used to int erpret this result as normal/abnormal . [facility] CenterJcuqgnoLNSDIJTKWJ9797-89-16 16:21:00 Test Item Value Reference Range Interpretation Comments Monocytes # (test code 0.5 See_Comment [Aut omated message] The = Monocytes #) system which generated this result tra nsmitted reference range : <=0.8. The reference r tc was not used to int erpret this result as normal/abnormal . [facility] CenterDbokwxgQPQYYMVGAB5578-71-78 16:21:00 Test Item Value Reference Range Interpretation Comments Eosinophils # (test code 0.1 See_Comment [A utomated message] The = Eosinophils #) system whic h generated this result tra nsmitted reference range : <=0.5. The reference r tc was not used to int erpret this result as normal/abnormal . [facility] CenterUppqetpMWPORQWJES4447-20-76 16:21:00 Test Item Value Reference Range Interpretation Comments Lymphocytes # (test code = Lymphocytes 2.3 1.0-5.5 #) [facility] CenterIfdihcmXBPCPUJNDL8226-21-41 16:21:00 Test Item Value Reference Range Interpretation Comments Segs (test code = Segs) 51.8 45.0-75.0 [facility] CenterQvrupjrBLBFIHWSAD4943-18-13 16:21:00 Test Item Value Reference Range Interpretation Comments Monocytes (test code = Monocytes) 7.9 2.0-12.0 [facility] Cent[id number] 16:21:00 Test Item Value Reference Range Interpretation Comments Lymphocytes (test code = Lymphocytes) 38.2 20.0-40.0 [facility]2018-08-09 16:21:00 Test Item Value Reference Range Interpretation Comments Lipase Lvl (test code = Lipase Lvl) 132 73-393 [facility] CenterTikhctgIXYZCDENMM3924-85-94 16:21:00 Test Item Value Reference Range Interpretation Comments Basophils (test code = 1.0 See_Comment [Aut omated message] The Basophils) system which ge nerated this result tra nsmitted reference range : <=1.0. The reference r tc was not used to int erpret this result as normal/abnormal . [facility] CenterRnrdizwQJKBHOEBAV6697-50-46 16:21:00 Test Item Value Reference Range Interpretation Comments Eosinophils (test code = 1.1 See_Comment [A utomated message] The Eosinophils) system which ge nerated this result tra nsmitted reference range : <=4.0. The reference r tc was not used to int erpret this result as normal/abnormal . [facility] CenterOlgsbouDPVOHIQCTF7845-02-91 16:21:00 Test Item Value Reference Range Interpretation Comments Neutrophils # (test code = Neutrophils 3.1 1.5-8.1 #) [facility]Gro[facility] InstrumentsATRI[facility] HE[facility] CAROLIN[facility] REHABILITATION [id number] 16:21:00 Test Item Value Reference Range Interpretation Comments eGFR (test code = eGFR) 99 [facility]2018-08-09 16:21:00 Test Item Value Reference Range Interpretation Comments Alk Phos (test code = Alk Phos) 65 39-136 [facility]Gro[facility] InstrumentsATRIUM HE[facility] CAROLIN[facility] REHABILITATION [id number] 16:21:00 Test Item Value Reference Range Interpretation Comments Bili Total (test code = Bili Total) 0.5 0.2-1.3 [facility]Gro[facility] InstrumentsATRIUM HEALTH CAROLIN[facility] REHABILITATION [id number] 16:21:00 Test Item Value Reference Range Interpretation Comments A/G Ratio (test code = A/G Ratio) 1.1 1 0.7-1.6 [facility]Gro[facility] InstrumentsATRIUM HE[facility] CAROL[facility] RE[facility]ABILITATION [id number] 16:21:00 Test Item Value Reference Range Interpretation Comments Globulin (test code = Globulin) 3.8 2.7-4.2 [facility] [id number] 16:21:00 Test Item Value Reference Range Interpretation Comments B/C Ratio (test code = B/C Ratio) 15 1 6-25 [facility]Gro[facility] InstrumentsATRI[facility] CAROL[facility] REHABILITATION [id number] 16:21:00 Test Item Value Reference Range Interpretation Comments AST (test code = AST) 17 See_Comment [Auto mated message] The system which ge nerated this result transmit denise reference range : <=37. The reference range was not used to interpr et this result as vickie l/abnormal. [facility] [employer] [id number] 16:21:00 Test Item Value Reference Range Interpretation Comments Total Protein (test code = Total 8.1 6.4-8.4 Protein) [facility] [id number] 16:21:00 Test Item Value Reference Range Interpretation Comments Creatinine Lvl (test code = Creatinine 1.01 0.50-1.40 Lvl) [facility] [id number] 16:21:00 Test Item Value Reference Range Interpretation Comments Potassium Lvl (test code = Potassium 4.3 3.5-5.1 Lvl) [facility] [id number] 16:21:00 Test Item Value Reference Range Interpretation Comments Sodium Lvl (test code = Sodium Lvl) 141 135-145 [facility]2018-08-09 16:21:00 Test Item Value Reference Range Interpretation Comments Troponin-I (test code no gt See_Comment [Auto mated message] The = Troponin-I) system which g enerated this result transmit denise reference range : <=0.40. The reference r tc was not used to interpr et this result as vickie l/abnormal. [facility] [employer]2018-08-09 16:21:00 Test Item Value Reference Range Interpretation Comments CK MB (test code = CK MB) no gt 0.5-3.6 [facility] [employer]2018-08-09 16:21:00 Test Item Value Reference Range Interpretation Comments Total CK (test code = Total CK) 87 12-191 [facility] [employer]2018-08-09 16:21:00 Test Item Value Reference Range Interpretation Comments CK MB Index (test no gt See_Comment [Automate d message] The code = CK MB Index) system w [facility] generated this result transmit denise reference range : <=2.5. The reference range was not used to interpr et this result as vickie l/abnormal. [employer]2018-08-09 16:21:00 Test Item Value Reference Range Interpretation Comments Lipase Lvl (test code = Lipase Lvl) 132 73-393 [facility] [employer]2018-08-09 16:21:00 Test Item Value Reference Range Interpretation Comments BUN (test code = BUN) 15 7-22 [employer]2018-08-09 16:21:00 Test Item Value Reference Range Interpretation Comments eGFR (test code = eGFR) 99 [facility] [employer]2018-08-09 16:21:00 Test Item Value Reference Range Interpretation Comments Alk Phos (test code = Alk Phos) 65 39-136 [facility] [employer]2018-08-09 16:21:00 Test Item Value Reference Range Interpretation Comments Bili Total (test code = Bili Total) 0.5 0.2-1.3 [facility] [employer]2018-08-09 16:21:00 Test Item Value Reference Range Interpretation Comments A/G Ratio (test code = A/G Ratio) 1.1 1 0.7-1.6 [employer]2018-08-09 16:21:00 Test Item Value Reference Range Interpretation Comments Globulin (test code = Globulin) 3.8 2.7-4.2 [facility]2018-08-09 16:21:00 Test Item Value Reference Range Interpretation Comments B/C Ratio (test code = B/C Ratio) 15 1 6-25 [place] 660278-08-09 16:21:00 Test Item Value Reference Range Interpretation Comments AST (test code = AST) 17 See_Comment [Auto mated message] The system which ge nerated this result transmit denise reference range : <=37. The reference range was not used to interpr et this result as vickie l/abnormal. [facility]2018-08-09 16:21:00 Test Item Value Reference Range Interpretation Comments Total Protein (test code = Total 8.1 6.4-8.4 Protein) [facility]2018-08-09 16:21:00 Test Item Value Reference Range Interpretation Comments Creatinine Lvl (test code = Creatinine 1.01 0.50-1.40 Lvl) [facility]2018-08-09 16:21:00 Test Item Value Reference Range Interpretation Comments Potassium Lvl (test code = Potassium 4.3 3.5-5.1 Lvl) [facility]2018-08-09 16:21:00 Test Item Value Reference Range Interpretation Comments AGAP (test code = AGAP) 12.3 10.0-20.0 [facility]2018-08-09 16:21:00 Test Item Value Reference Range Interpretation Comments Sodium Lvl (test code = Sodium Lvl) 141 135-145 [facility]2018-08-09 16:21:00 Test Item Value Reference Range Interpretation Comments BUN (test code = BUN) 15 7-22 [facility]2018-08-09 16:21:00 Test Item Value Reference Range Interpretation Comments AGAP (test code = AGAP) 12.3 10.0-20.0 [facility]2018-08-09 16:21:00 Test Item Value Reference Range Interpretation Comments Chloride Lvl (test code = Chloride Lvl) 105 95-109 [facility]2018-08-09 16:21:00 Test Item Value Reference Range Interpretation Comments Albumin Lvl (test code = Albumin Lvl) 4.3 3.5-5.0 [facility]2018-08-09 16:21:00 Test Item Value Reference Range Interpretation Comments Glucose Lvl (test code = Glucose Lvl) 138 70-99 [facility]2018-08-09 16:21:00 Test Item Value Reference Range Interpretation Comments ALT (test code = ALT) 28 See_Comment [Auto mated message] The system which ge nerated this result transmit denise reference range : <=65. The reference range was not used to interpr et this result as vickie l/abnormal. [facility]2018-08-09 16:21:00 Test Item Value Reference Range Interpretation Comments Calcium Lvl (test code = Calcium Lvl) 9.1 8.5-10.5 [facility]2018-08-09 16:21:00 Test Item Value Reference Range Interpretation Comments CO2 (test code = CO2) 28 24-32 [facility]2018-08-09 16:21:00 Test Item Value Reference Range Interpretation Comments Magnesium Lvl (test code = Magnesium 2.1 1.8-2.4 Lvl) [facility]2018-08-09 16:21:00 Test Item Value Reference Range Interpretation Comments Chloride Lvl (test code = Chloride Lvl) 105 95-109 [facility] CenterDwsbopzKCSGXGNWPH9085-42-26 16:21:00 Test Item Value Reference Range Interpretation Comments Hgb (test code = Hgb) 16.0 14.0-18.0 [facility] CenterCqwalgqDOYJSMSXSE6021-61-61 16:21:00 Test Item Value Reference Range Interpretation Comments MCV (test code = MCV) 92.3 80.0-94.0 [facility] CenterYtdtwfaTCAOINPNLP5251-04-47 16:21:00 Test Item Value Reference Range Interpretation Comments Hct (test code = Hct) 47.1 42.0-54.0 [facility] CenterDdobrofERXSSKIQXE8402-24-14 16:21:00 Test Item Value Reference Range Interpretation Comments MCHC (test code = MCHC) 34.0 32.0-36.0 [facility] CenterQdaxwouDOEHKLXEDF4911-69-62 16:21:00 Test Item Value Reference Range Interpretation Comments MCH (test code = MCH) 31.4 pg 27.0-31.0 [facility] CenterFzpvoabXYFJIKJYYT4180-84-95 16:21:00 Test Item Value Reference Range Interpretation Comments MPV (test code = MPV) 7.7 7.4-10.4 [facility] CenterZvlkezuBUXCNRTMMU1421-47-53 16:21:00 Test Item Value Reference Range Interpretation Comments RDW (test code = RDW) 13.1 11.5-14.5 [facility] CenterZtwdzgoUYFLCWWEOY5839-13-60 16:21:00 Test Item Value Reference Range Interpretation Comments Platelet (test code = Platelet) 236 133-450 [facility] CenterKchcoaaYGDDKIQJPV5467-33-43 16:21:00 Test Item Value Reference Range Interpretation Comments WBC (test code = WBC) 5.9 3.7-10.4 [facility] CenterDeulqriKHWHCMRPPD2341-42-12 16:21:00 Test Item Value Reference Range Interpretation Comments RBC (test code = RBC) 5.10 4.70-6.10 [facility]2018-08-09 16:21:00 Test Item Value Reference Range Interpretation Comments Albumin Lvl (test code = Albumin Lvl) 4.3 3.5-5.0 [facility] CenterPlhqzekLDNKZEOVVX9062-51-06 16:21:00 Test Item Value Reference Range Interpretation Comments Basophils # (test code 0.1 See_Comment [Aut omated message] The = Basophils #) system which generated this result tra nsmitted reference range : <=0.2. The reference r tc was not used to int erpret this result as normal/abnormal . [facility] CenterPdpitckPVEGXFUTVS2155-79-40 16:21:00 Test Item Value Reference Range Interpretation Comments Monocytes # (test code 0.5 See_Comment [Aut omated message] The = Monocytes #) system which generated this result tra nsmitted reference range : <=0.8. The reference r tc was not used to int erpret this result as normal/abnormal . [facility] CenterDmzpcfuXXTFLZMFPI1673-05-09 16:21:00 Test Item Value Reference Range Interpretation Comments Eosinophils # (test code 0.1 See_Comment [A utomated message] The = Eosinophils #) system whic h generated this result tra nsmitted reference range : <=0.5. The reference r tc was not used to int erpret this result as normal/abnormal . [facility] CenterBlbzyeeRTGOJXQSIB2505-81-86 16:21:00 Test Item Value Reference Range Interpretation Comments Lymphocytes # (test code = Lymphocytes 2.3 1.0-5.5 #) [facility] CenterRquhyszBDIYUYQPJT5575-06-24 16:21:00 Test Item Value Reference Range Interpretation Comments Segs (test code = Segs) 51.8 45.0-75.0 [facility] CenterWlphimuSHLBBSHRIQ0758-09-71 16:21:00 Test Item Value Reference Range Interpretation Comments Monocytes (test code = Monocytes) 7.9 2.0-12.0 [facility] CenterAubytrmXCJQBROXVG5254-33-05 16:21:00 Test Item Value Reference Range Interpretation Comments Lymphocytes (test code = Lymphocytes) 38.2 20.0-40.0 [facility] CenterYfbezhmWOHYYGVYYG3754-97-92 16:21:00 Test Item Value Reference Range Interpretation Comments Basophils (test code = 1.0 See_Comment [Aut omated message] The Basophils) system which ge nerated this result tra nsmitted reference range : <=1.0. The reference r tc was not used to int erpret this result as normal/abnormal . [facility] CenterPfkesylQZYKMEPVDN4487-58-31 16:21:00 Test Item Value Reference Range Interpretation Comments Eosinophils (test code = 1.1 See_Comment [A utomated message] The Eosinophils) system which ge nerated this result tra nsmitted reference range : <=4.0. The reference r tc was not used to int erpret this result as normal/abnormal . [facility] CenterWcksoyyOKRNCCEZPP0112-70-22 16:21:00 Test Item Value Reference Range Interpretation Comments Neutrophils # (test code = Neutrophils 3.1 1.5-8.1 #) [facility]2018-08-09 16:21:00 Test Item Value Reference Range Interpretation Comments Glucose Lvl (test code = Glucose Lvl) 138 70-99 [facility]2018-08-09 16:21:00 Test Item Value Reference Range Interpretation Comments ALT (test code = ALT) 28 See_Comment [Auto mated message] The system which ge nerated this result transmit denise reference range : <=65. The reference range was not used to interpr et this result as vickie l/abnormal. [facility]2018-08-09 16:21:00 Test Item Value Reference Range Interpretation Comments Calcium Lvl (test code = Calcium Lvl) 9.1 8.5-10.5 [facility]2018-08-09 16:21:00 Test Item Value Reference Range Interpretation Comments CO2 (test code = CO2) [facility]2018-08-09 16:21:00 Test Item Value Reference Range Interpretation Comments CO2 (test code = CO2) [facility]2018-08-09 16:21:00 Test Item Value Reference Range Interpretation Comments Magnesium Lvl (test code = Magnesium 2.1 1.8-2.4 Lvl) [facility] CenterAmqqijcFXIHMBADJF2155-68-93 16:21:00 Test Item Value Reference Range Interpretation Comments Hgb (test code = Hgb) 16.0 14.0-18.0 [facility] CenterFkzqvydLHMZZTEUIG7330-20-59 16:21:00 Test Item Value Reference Range Interpretation Comments MCV (test code = MCV) 92.3 80.0-94.0 [facility] CenterTimxsepQQSZROXDYP6277-47-14 16:21:00 Test Item Value Reference Range Interpretation Comments Hct (test code = Hct) 47.1 42.0-54.0 [facility] CenterVcokuksSGFCCKTNTX4649-62-76 16:21:00 Test Item Value Reference Range Interpretation Comments MCHC (test code = MCHC) 34.0 32.0-36.0 [facility] CenterYkwahhoZWECAFXJAA6182-12-74 16:21:00 Test Item Value Reference Range Interpretation Comments MCH (test code = MCH) 31.4 pg 27.0-31.0 [facility] CenterFsmyjijNFYLPCCFVS1324-39-22 16:21:00 Test Item Value Reference Range Interpretation Comments MPV (test code = MPV) 7.7 7.4-10.4 [facility] CenterZsalkdbJMPZZUODER2114-69-94 16:21:00 Test Item Value Reference Range Interpretation Comments RDW (test code = RDW) 13.1 11.5-14.5 [facility] CenterNgltnshYUPLZSQOTZ4701-90-20 16:21:00 Test Item Value Reference Range Interpretation Comments Platelet (test code = Platelet) 236 133-450 [facility] CenterQwlsvlkNGCKDDWVIN4155-55-08 16:21:00 Test Item Value Reference Range Interpretation Comments WBC (test code = WBC) 5.9 3.7-10.4 [facility] CenterHaxmqfoPOTJMURWKD9763-13-17 16:21:00 Test Item Value Reference Range Interpretation Comments RBC (test code = RBC) 5.10 4.70-6.10 [facility] CenterFniccxsUFJXPJYGGY0352-88-60 16:21:00 Test Item Value Reference Range Interpretation Comments Basophils # (test code 0.1 See_Comment [Aut omated message] The = Basophils #) system which generated this result tra nsmitted reference range : <=0.2. The reference r tc was not used to int erpret this result as normal/abnormal . [facility] CenterIdqzyyyMVXVFHKEIF1210-08-75 16:21:00 Test Item Value Reference Range Interpretation Comments Monocytes # (test code 0.5 See_Comment [Aut omated message] The = Monocytes #) system which generated this result tra nsmitted reference range : <=0.8. The reference r tc was not used to int erpret this result as normal/abnormal . [facility] CenterMawuqtbGMHUQAOROP5785-48-86 16:21:00 Test Item Value Reference Range Interpretation Comments Eosinophils # (test code 0.1 See_Comment [A utomated message] The = Eosinophils #) system whic h generated this result tra nsmitted reference range : <=0.5. The reference r tc was not used to int erpret this result as normal/abnormal . [facility] CenterVcmxinyRERBGVHXBI3265-50-00 16:21:00 Test Item Value Reference Range Interpretation Comments Lymphocytes # (test code = Lymphocytes 2.3 1.0-5.5 #) [facility] CenterZcnaarzHPPYGZGRZT3273-99-85 16:21:00 Test Item Value Reference Range Interpretation Comments Segs (test code = Segs) 51.8 45.0-75.0 [facility] CenterOvpuiylHOYUXENBIV3911-79-37 16:21:00 Test Item Value Reference Range Interpretation Comments Monocytes (test code = Monocytes) 7.9 2.0-12.0 [facility] CenterErxyvndOGIHZIKLWN7084-05-34 16:21:00 Test Item Value Reference Range Interpretation Comments Lymphocytes (test code = Lymphocytes) 38.2 20.0-40.0 [facility] CenterLhylwfjYQTBXIFZXW1706-05-95 16:21:00 Test Item Value Reference Range Interpretation Comments Basophils (test code = 1.0 See_Comment [Aut omated message] The Basophils) system which ge nerated this result tra nsmitted reference range : <=1.0. The reference r tc was not used to int erpret this result as normal/abnormal . RewalonNmevwghFJQTRDKCIV5625-78-80 16:21:00 Test Item Value Reference Range Interpretation Comments Eosinophils (test code = 1.1 See_Comment [A utomated message] The Eosinophils) system which ge nerated this result tra nsmitted reference range : <=4.0. The reference r tc was not used to int erpret this result as normal/abnormal . [facility] WtfhxlrAEJTYQRLHU9760-10-60 16:21:00 Test Item Value Reference Range Interpretation Comments Neutrophils # (test code = Neutrophils 3.1 1.5-8.1 #) [facility] [employer]2018-08-09 16:21:00 Test Item Value Reference Range Interpretation Comments Troponin-I (test code no gt See_Comment [Auto mated message] The = Troponin-I) system which g enerated this result transmit denise reference range : <=0.40. The reference r tc was not used to interpr et this result as vickie l/abnormal. [facility] [employer]2018-08-09 16:21:00 Test Item Value Reference Range Interpretation Comments CK MB (test code = CK MB) no gt 0.5-3.6 [facility] [employer]2018-08-09 16:21:00 Test Item Value Reference Range Interpretation Comments Total CK (test code = Total CK) 87 12-191 [facility] [employer]2018-08-09 16:21:00 Test Item Value Reference Range Interpretation Comments CK MB Index (test no gt See_Comment [Automate d message] The code = CK MB Index) system w [facility] generated this result transmit denise reference range : <=2.5. The reference range was not used to interpr et this result as vickie l/abnormal. [employer]2018-08-09 16:21:00 Test Item Value Reference Range Interpretation Comments Lipase Lvl (test code = Lipase Lvl) 132 73-393 [facility] [employer]2018-08-09 16:21:00 Test Item Value Reference Range Interpretation Comments eGFR (test code = eGFR) 99 [facility] [employer]2018-08-09 16:21:00 Test Item Value Reference Range Interpretation Comments Alk Phos (test code = Alk Phos) 65 39-136 [employer]2018-08-09 16:21:00 Test Item Value Reference Range Interpretation Comments Bili Total (test code = Bili Total) 0.5 0.2-1.3 [facility]2018-08-09 16:21:00 Test Item Value Reference Range Interpretation Comments A/G Ratio (test code = A/G Ratio) 1.1 1 0.7-1.6 [facility]2018-08-09 16:21:00 Test Item Value Reference Range Interpretation Comments Globulin (test code = Globulin) 3.8 2.7-4.2 [facility]2018-08-09 16:21:00 Test Item Value Reference Range Interpretation Comments B/C Ratio (test code = B/C Ratio) 15 1 6-25 [facility]2018-08-09 16:21:00 Test Item Value Reference Range Interpretation Comments AST (test code = AST) 17 See_Comment [Auto mated message] The system which ge nerated this result transmit denise reference range : <=37. The reference range was not used to interpr et this result as vickie l/abnormal. [facility]2018-08-09 16:21:00 Test Item Value Reference Range Interpretation Comments Total Protein (test code = Total 8.1 6.4-8.4 Protein) [facility]2018-08-09 16:21:00 Test Item Value Reference Range Interpretation Comments Creatinine Lvl (test code = Creatinine 1.01 0.50-1.40 Lvl) [facility]2018-08-09 16:21:00 Test Item Value Reference Range Interpretation Comments Potassium Lvl (test code = Potassium 4.3 3.5-5.1 Lvl) [facility]2018-08-09 16:21:00 Test Item Value Reference Range Interpretation Comments Sodium Lvl (test code = Sodium Lvl) 141 135-145 [facility]2018-08-09 16:21:00 Test Item Value Reference Range Interpretation Comments BUN (test code = BUN) 15 7-22 [facility]2018-08-09 16:21:00 Test Item Value Reference Range Interpretation Comments AGAP (test code = AGAP) 12.3 10.0-20.0 [facility]2018-08-09 16:21:00 Test Item Value Reference Range Interpretation Comments Chloride Lvl (test code = Chloride Lvl) 105 95-109 [facility]2018-08-09 16:21:00 Test Item Value Reference Range Interpretation Comments Albumin Lvl (test code = Albumin Lvl) 4.3 3.5-5.0 [facility]2018-08-09 16:21:00 Test Item Value Reference Range Interpretation Comments Glucose Lvl (test code = Glucose Lvl) 138 70-99 [facility]2018-08-09 16:21:00 Test Item Value Reference Range Interpretation Comments ALT (test code = ALT) 28 See_Comment [Auto mated message] The system which ge nerated this result transmit denise reference range : <=65. The reference range was not used to interpr et this result as vickie l/abnormal. [facility]2018-08-09 16:21:00 Test Item Value Reference Range Interpretation Comments Calcium Lvl (test code = Calcium Lvl) 9.1 8.5-10.5 [facility]2018-08-09 16:21:00 Test Item Value Reference Range Interpretation Comments Magnesium Lvl (test code = Magnesium 2.1 1.8-2.4 Lvl) [facility] CenterCzuzfpaVWTSAOKSRS5019-09-86 16:21:00 Test Item Value Reference Range Interpretation Comments Hgb (test code = Hgb) 16.0 14.0-18.0 [facility] CenterIplsnpnLNAKFTFFNW8839-90-60 16:21:00 Test Item Value Reference Range Interpretation Comments MCV (test code = MCV) 92.3 80.0-94.0 [facility] CenterGiifquyBESBAPOJMJ8465-21-48 16:21:00 Test Item Value Reference Range Interpretation Comments Hct (test code = Hct) 47.1 42.0-54.0 [facility] CenterBvqdaapNITBTOXBDD7466-46-72 16:21:00 Test Item Value Reference Range Interpretation Comments MCHC (test code = MCHC) 34.0 32.0-36.0 [facility] CenterWecvzxfPTVBJZPHGZ7375-36-58 16:21:00 Test Item Value Reference Range Interpretation Comments MCH (test code = MCH) 31.4 pg 27.0-31.0 [facility] CenterWpglryoLHDDKRXUNA3672-47-17 16:21:00 Test Item Value Reference Range Interpretation Comments MPV (test code = MPV) 7.7 7.4-10.4 [facility] XzygnnrMSMPPAKDYO8834-96-51 16:21:00 Test Item Value Reference Range Interpretation Comments RDW (test code = RDW) 13.1 11.5-14.5 [facility] [id number] 16:21:00 Test Item Value Reference Range Interpretation Comments Troponin-I (test code no gt See_Comment [Auto mated message] The = Troponin-I) system which g enerated this result transmit denise reference range : <=0.40. The reference r tc was not used to interpr et this result as vickie l/abnormal. [facility] HRQEENR2109-86-14 16:21:00 Test Item Value Reference Range Interpretation Comments CK MB (test code = CK MB) no gt 0.5-3.6 [facility]Infin[facility]ourceB[facility] PLXCACX8066-68-25 16:21:00 Test Item Value Reference Range Interpretation Comments Total CK (test code = Total CK) 87 12-191 [facility] UKHTQOO0967-36-00 16:21:00 Test Item Value Reference Range Interpretation Comments CK MB Index (test no gt See_Comment [Automate d message] The code = CK MB Index) system w [facility] generated this result transmit denise reference range : <=2.5. The reference range was not used to interpr et this result as vickie l/abnormal. [facility] [employer] [id number] 16:21:00 Test Item Value Reference Range Interpretation Comments Lipase Lvl (test code = Lipase Lvl) 132 73-393 [facility] [employer]2018-08-09 16:21:00 Test Item Value Reference Range Interpretation Comments eGFR (test code = eGFR) 99 [facility] [employer]2018-08-09 16:21:00 Test Item Value Reference Range Interpretation Comments Alk Phos (test code = Alk Phos) 65 39-136 [facility] [employer] [id number] 16:21:00 Test Item Value Reference Range Interpretation Comments Bili Total (test code = Bili Total) 0.5 0.2-1.3 [facility] FfemwnqCTZSYDTPUP8743-50-21 16:21:00 Test Item Value Reference Range Interpretation Comments Platelet (test code = Platelet) 236 133-450 [facility] [employer]2018-08-09 16:21:00 Test Item Value Reference Range Interpretation Comments A/G Ratio (test code = A/G Ratio) 1.1 1 0.7-1.6 [facility]2018-08-09 16:21:00 Test Item Value Reference Range Interpretation Comments Globulin (test code = Globulin) 3.8 2.7-4.2 [facility]2018-08-09 16:21:00 Test Item Value Reference Range Interpretation Comments B/C Ratio (test code = B/C Ratio) 15 1 6-25 [facility]2018-08-09 16:21:00 Test Item Value Reference Range Interpretation Comments AST (test code = AST) 17 See_Comment [Auto mated message] The system which ge nerated this result transmit denise reference range : <=37. The reference range was not used to interpr et this result as vickie l/abnormal. [facility]2018-08-09 16:21:00 Test Item Value Reference Range Interpretation Comments Total Protein (test code = Total 8.1 6.4-8.4 Protein) [facility]2018-08-09 16:21:00 Test Item Value Reference Range Interpretation Comments Creatinine Lvl (test code = Creatinine 1.01 0.50-1.40 Lvl) [facility]2018-08-09 16:21:00 Test Item Value Reference Range Interpretation Comments Potassium Lvl (test code = Potassium 4.3 3.5-5.1 Lvl) [facility]2018-08-09 16:21:00 Test Item Value Reference Range Interpretation Comments Sodium Lvl (test code = Sodium Lvl) 141 135-145 [facility]2018-08-09 16:21:00 Test Item Value Reference Range Interpretation Comments BUN (test code = BUN) 15 7-22 [facility]2018-08-09 16:21:00 Test Item Value Reference Range Interpretation Comments AGAP (test code = AGAP) 12.3 10.0-20.0 [facility] Cent[id number] 16:21:00 Test Item Value Reference Range Interpretation Comments WBC (test code = WBC) 5.9 3.7-10.4 [facility]2018-08-09 16:21:00 Test Item Value Reference Range Interpretation Comments Chloride Lvl (test code = Chloride Lvl) 105 95-109 [facility]2018-08-09 16:21:00 Test Item Value Reference Range Interpretation Comments Albumin Lvl (test code = Albumin Lvl) 4.3 3.5-5.0 [facility]2018-08-09 16:21:00 Test Item Value Reference Range Interpretation Comments Glucose Lvl (test code = Glucose Lvl) 138 70-99 [facility]2018-08-09 16:21:00 Test Item Value Reference Range Interpretation Comments ALT (test code = ALT) 28 See_Comment [Auto mated message] The system which ge nerated this result transmit denise reference range : <=65. The reference range was not used to interpr et this result as vickie l/abnormal. [facility]2018-08-09 16:21:00 Test Item Value Reference Range Interpretation Comments Calcium Lvl (test code = Calcium Lvl) 9.1 8.5-10.5 [facility]2018-08-09 16:21:00 Test Item Value Reference Range Interpretation Comments CO2 (test code = CO2) 28 24-32 [facility]2018-08-09 16:21:00 Test Item Value Reference Range Interpretation Comments Magnesium Lvl (test code = Magnesium 2.1 1.8-2.4 Lvl) [facility] CenterAvwsedlTDXZUOTIUT7159-84-52 16:21:00 Test Item Value Reference Range Interpretation Comments Hgb (test code = Hgb) 16.0 14.0-18.0 [facility] CenterDrasncdCKNZNPBLMZ6037-24-10 16:21:00 Test Item Value Reference Range Interpretation Comments MCV (test code = MCV) 92.3 80.0-94.0 [facility] CenterDnxwquaYHPXTBUWGY6592-73-01 16:21:00 Test Item Value Reference Range Interpretation Comments Hct (test code = Hct) 47.1 42.0-54.0 [facility] CenterFmssqtsHKSVEYSBVP1544-48-66 16:21:00 Test Item Value Reference Range Interpretation Comments RBC (test code = RBC) 5.10 4.70-6.10 [facility] Cent[id number] 16:21:00 Test Item Value Reference Range Interpretation Comments MCHC (test code = MCHC) 34.0 32.0-36.0 [place] [id number] 16:21:00 Test Item Value Reference Range Interpretation Comments MCH (test code = MCH) 31.4 pg 27.0-31.0 [facility] Cent[id number] 16:21:00 Test Item Value Reference Range Interpretation Comments MPV (test code = MPV) 7.7 7.4-10.4 [facility] Cent[id number] 16:21:00 Test Item Value Reference Range Interpretation Comments RDW (test code = RDW) 13.1 11.5-14.5 [facility] CenterVnjrrrsIBMNEQNEHN7115-65-94 16:21:00 Test Item Value Reference Range Interpretation Comments Platelet (test code = Platelet) 236 133-450 [facility] CenterQbxsigdOGXRFUBNYQ1852-32-54 16:21:00 Test Item Value Reference Range Interpretation Comments WBC (test code = WBC) 5.9 3.7-10.4 [facility] CenterVsqntjeXIQUTSSHUH1861-52-26 16:21:00 Test Item Value Reference Range Interpretation Comments RBC (test code = RBC) 5.10 4.70-6.10 [facility] Cent[id number] 16:21:00 Test Item Value Reference Range Interpretation Comments Basophils # (test code 0.1 See_Comment [Aut omated message] The = Basophils #) system which generated this result tra nsmitted reference range : <=0.2. The reference r tc was not used to int erpret this result as normal/abnormal . [facility] CenterQkxucrgZUGQUWJRAE9394-11-12 16:21:00 Test Item Value Reference Range Interpretation Comments Monocytes # (test code 0.5 See_Comment [Aut omated message] The = Monocytes #) system which generated this result tra nsmitted reference range : <=0.8. The reference r tc was not used to int erpret this result as normal/abnormal . [facility] CenterSnowpfeAJEVZLSJEJ1888-12-93 16:21:00 Test Item Value Reference Range Interpretation Comments Eosinophils # (test code 0.1 See_Comment [A utomated message] The = Eosinophils #) system whic h generated this result tra nsmitted reference range : <=0.5. The reference r tc was not used to int erpret this result as normal/abnormal . [facility] CenterDribwnxYWJIIKZSAI0839-79-75 16:21:00 Test Item Value Reference Range Interpretation Comments Basophils # (test code 0.1 See_Comment [Aut omated message] The = Basophils #) system which generated this result tra nsmitted reference range : <=0.2. The reference r tc was not used to int erpret this result as normal/abnormal . [facility] CenterPazxmksUARLTOIABS9708-62-94 16:21:00 Test Item Value Reference Range Interpretation Comments Lymphocytes # (test code = Lymphocytes 2.3 1.0-5.5 #) [facility] CenterUcijwwnZWYOFQSSWV2480-09-84 16:21:00 Test Item Value Reference Range Interpretation Comments Segs (test code = Segs) 51.8 45.0-75.0 [facility] CenterBrjjimnAWJSVIPPBL7296-82-46 16:21:00 Test Item Value Reference Range Interpretation Comments Monocytes (test code = Monocytes) 7.9 2.0-12.0 [facility] CenterQnvryxtNJOUUPZCXT0980-87-38 16:21:00 Test Item Value Reference Range Interpretation Comments Lymphocytes (test code = Lymphocytes) 38.2 20.0-40.0 [facility] CenterDzjbamtFUGSOGUNXL2300-29-45 16:21:00 Test Item Value Reference Range Interpretation Comments Basophils (test code = 1.0 See_Comment [Aut omated message] The Basophils) system which ge nerated this result tra nsmitted reference range : <=1.0. The reference r tc was not used to int erpret this result as normal/abnormal . [facility] CenterRlclvibCEGBUUKBJS7479-18-60 16:21:00 Test Item Value Reference Range Interpretation Comments Eosinophils (test code = 1.1 See_Comment [A utomated message] The Eosinophils) system which ge nerated this result tra nsmitted reference range : <=4.0. The reference r tc was not used to int erpret this result as normal/abnormal . [facility] CenterOqiplqsITKZJRJUIB7907-33-57 16:21:00 Test Item Value Reference Range Interpretation Comments Neutrophils # (test code = Neutrophils 3.1 1.5-8.1 #) [facility] CenterUsniqutRGOEKKBALT6677-35-51 16:21:00 Test Item Value Reference Range Interpretation Comments Monocytes # (test code 0.5 See_Comment [Aut omated message] The = Monocytes #) system which generated this result tra nsmitted reference range : <=0.8. The reference r tc was not used to int erpret this result as normal/abnormal . [facility] CenterDcnazwwJCXDAROGRN5656-21-98 16:21:00 Test Item Value Reference Range Interpretation Comments Eosinophils # (test code 0.1 See_Comment [A utomated message] The = Eosinophils #) system whic h generated this result tra nsmitted reference range : <=0.5. The reference r tc was not used to int erpret this result as normal/abnormal . [facility] CenterKvshpdpKRSKWUBSQV4744-83-08 16:21:00 Test Item Value Reference Range Interpretation Comments Lymphocytes # (test code = Lymphocytes 2.3 1.0-5.5 #) [facility] CenterCbezqyaPACYXSNRSR9395-66-57 16:21:00 Test Item Value Reference Range Interpretation Comments Segs (test code = Segs) 51.8 45.0-75.0 [facility] CenterKgvicaoGLYKFMRZMI7449-70-23 16:21:00 Test Item Value Reference Range Interpretation Comments Monocytes (test code = Monocytes) 7.9 2.0-12.0 [facility] CenterNgdgzpuZXIDWGSXFT1362-52-73 16:21:00 Test Item Value Reference Range Interpretation Comments Lymphocytes (test code = Lymphocytes) 38.2 20.0-40.0 [facility] CenterVofqvieNCRIMQIZBA4090-25-27 16:21:00 Test Item Value Reference Range Interpretation Comments Basophils (test code = 1.0 See_Comment [Aut omated message] The Basophils) system which ge nerated this result tra nsmitted reference range : <=1.0. The reference r tc was not used to int erpret this result as normal/abnormal . [facility] CenterVqguqsvSVLXHGLDMD8913-27-05 16:21:00 Test Item Value Reference Range Interpretation Comments Eosinophils (test code = 1.1 See_Comment [A utomated message] The Eosinophils) system which ge nerated this result tra nsmitted reference range : <=4.0. The reference r tc was not used to int erpret this result as normal/abnormal . [facility] CenterUhlzaqlNASRFNDVII0698-69-72 16:21:00 Test Item Value Reference Range Interpretation Comments Neutrophils # (test code = Neutrophils 3.1 1.5-8.1 #) [facility]kinCARDIAC XIYAVKR4948-02-19 16:21:00 Test Item Value Reference Range Interpretation Comments Troponin-I (test code no gt See_Comment [Auto mated message] The = Troponin-I) system which g enerated this result transmit denise reference range : <=0.40. The reference r tc was not used to interpr et this result as vickie l/abnormal. [facility] [employer] [id number] 16:21:00 Test Item Value Reference Range Interpretation Comments CK MB (test code = CK MB) no gt 0.5-3.6 [facility] [employer] [id number] 16:21:00 Test Item Value Reference Range Interpretation Comments Total CK (test code = Total CK) 87 12-191 [facility] ZOQYYVO9765-72-25 16:21:00 Test Item Value Reference Range Interpretation Comments CK MB Index (test no gt See_Comment [Automate d message] The code = CK MB Index) system w [facility] generated this result transmit denise reference range : <=2.5. The reference range was not used to interpr et this result as vickie l/abnormal. [facility] [employer] [id number] 16:21:00 Test Item Value Reference Range Interpretation Comments Lipase Lvl (test code = Lipase Lvl) 132 73-393 [facility] [employer] [id number] 16:21:00 Test Item Value Reference Range Interpretation Comments eGFR (test code = eGFR) 99 [facility] [employer] [id number] 16:21:00 Test Item Value Reference Range Interpretation Comments Alk Phos (test code = Alk Phos) 65 39-136 [facility] [employer] [id number] 16:21:00 Test Item Value Reference Range Interpretation Comments Bili Total (test code = Bili Total) 0.5 0.2-1.3 [facility] [employer] [id number] 16:21:00 Test Item Value Reference Range Interpretation Comments A/G Ratio (test code = A/G Ratio) 1.1 1 0.7-1.6 [facility] [employer] [id number] 16:21:00 Test Item Value Reference Range Interpretation Comments Globulin (test code = Globulin) 3.8 2.7-4.2 [facility] [employer] [id number] 16:21:00 Test Item Value Reference Range Interpretation Comments B/C Ratio (test code = B/C Ratio) 15 1 6-25 [facility]YNBBF9829-29-62 16:21:00 Test Item Value Reference Range Interpretation Comments AST (test code = AST) 17 See_Comment [Auto mated message] The system which ge nerated this result transmit denise reference range : <=37. The reference range was not used to interpr et this result as vickie l/abnormal. [place] [id number] 16:21:00 Test Item Value Reference Range Interpretation Comments Total Protein (test code = Total 8.1 6.4-8.4 Protein) [facility]2018-08-09 16:21:00 Test Item Value Reference Range Interpretation Comments Creatinine Lvl (test code = Creatinine 1.01 0.50-1.40 Lvl) [facility]2018-08-09 16:21:00 Test Item Value Reference Range Interpretation Comments Potassium Lvl (test code = Potassium 4.3 3.5-5.1 Lvl) [facility]2018-08-09 16:21:00 Test Item Value Reference Range Interpretation Comments Sodium Lvl (test code = Sodium Lvl) 141 135-145 [facility]2018-08-09 16:21:00 Test Item Value Reference Range Interpretation Comments BUN (test code = BUN) 15 7-22 [facility]2018-08-09 16:21:00 Test Item Value Reference Range Interpretation Comments AGAP (test code = AGAP) 12.3 10.0-20.0 [facility]2018-08-09 16:21:00 Test Item Value Reference Range Interpretation Comments Chloride Lvl (test code = Chloride Lvl) 105 95-109 [facility]2018-08-09 16:21:00 Test Item Value Reference Range Interpretation Comments Albumin Lvl (test code = Albumin Lvl) 4.3 3.5-5.0 [facility]2018-08-09 16:21:00 Test Item Value Reference Range Interpretation Comments Glucose Lvl (test code = Glucose Lvl) 138 70-99 [facility]2018-08-09 16:21:00 Test Item Value Reference Range Interpretation Comments ALT (test code = ALT) 28 See_Comment [Auto mated message] The system which ge nerated this result transmit denise reference range : <=65. The reference range was not used to interpr et this result as vickie l/abnormal. [facility]2018-08-09 16:21:00 Test Item Value Reference Range Interpretation Comments Calcium Lvl (test code = Calcium Lvl) 9.1 8.5-10.5 [facility]2018-08-09 16:21:00 Test Item Value Reference Range Interpretation Comments CO2 (test code = CO2) 28 24-32 [facility]2018-08-09 16:21:00 Test Item Value Reference Range Interpretation Comments Magnesium Lvl (test code = Magnesium 2.1 1.8-2.4 Lvl) [facility] CenterVvfjveeFYZUJGQRSP5923-60-71 16:21:00 Test Item Value Reference Range Interpretation Comments Hgb (test code = Hgb) 16.0 14.0-18.0 [facility] CenterFttpvzeKZQJWUAIBN3726-10-60 16:21:00 Test Item Value Reference Range Interpretation Comments MCV (test code = MCV) 92.3 80.0-94.0 [facility] CenterBvraavgKNBCARXQPM6612-10-56 16:21:00 Test Item Value Reference Range Interpretation Comments Hct (test code = Hct) 47.1 42.0-54.0 [facility] CenterLlbeqydKHMULBMOQU1674-52-22 16:21:00 Test Item Value Reference Range Interpretation Comments MCHC (test code = MCHC) 34.0 32.0-36.0 [facility] CenterZclyclnMBWXGOIWPI1296-74-67 16:21:00 Test Item Value Reference Range Interpretation Comments MCH (test code = MCH) 31.4 pg 27.0-31.0 [facility] CenterGctfdgcTMSHQEVTNP1799-36-34 16:21:00 Test Item Value Reference Range Interpretation Comments MPV (test code = MPV) 7.7 7.4-10.4 [facility] CenterRdxykeoNPMMAMMBSD7405-87-63 16:21:00 Test Item Value Reference Range Interpretation Comments RDW (test code = RDW) 13.1 11.5-14.5 [facility] CenterNlpppabAHYRTKSQQK4633-88-79 16:21:00 Test Item Value Reference Range Interpretation Comments Platelet (test code = Platelet) 236 133-450 [facility] CenterSbjueehHUQQCDMDWF1909-00-42 16:21:00 Test Item Value Reference Range Interpretation Comments WBC (test code = WBC) 5.9 3.7-10.4 [facility] CenterDoqxktoUFSDSEOTZJ7964-99-55 16:21:00 Test Item Value Reference Range Interpretation Comments RBC (test code = RBC) 5.10 4.70-6.10 [facility] CenterCvtsislHZCSHBBXSG1970-58-41 16:21:00 Test Item Value Reference Range Interpretation Comments Basophils # (test code 0.1 See_Comment [Aut omated message] The = Basophils #) system which generated this result tra nsmitted reference range : <=0.2. The reference r tc was not used to int erpret this result as normal/abnormal . [facility] CenterMchywnhQKXGXTKBZS3686-53-84 16:21:00 Test Item Value Reference Range Interpretation Comments Monocytes # (test code 0.5 See_Comment [Aut omated message] The = Monocytes #) system which generated this result tra nsmitted reference range : <=0.8. The reference r tc was not used to int erpret this result as normal/abnormal . [facility] CenterDskiapqAAVTQRRLLZ0564-66-84 16:21:00 Test Item Value Reference Range Interpretation Comments Eosinophils # (test code 0.1 See_Comment [A utomated message] The = Eosinophils #) system whic h generated this result tra nsmitted reference range : <=0.5. The reference r tc was not used to int erpret this result as normal/abnormal . [facility] CenterRrrguyzSVLUBMOIBJ4361-89-05 16:21:00 Test Item Value Reference Range Interpretation Comments Lymphocytes # (test code = Lymphocytes 2.3 1.0-5.5 #) [facility] CenterJdnbmckZUFFRDXEYY7512-03-68 16:21:00 Test Item Value Reference Range Interpretation Comments Segs (test code = Segs) 51.8 45.0-75.0 [facility] CenterUgzunrsUOLBGCIZXB7306-91-25 16:21:00 Test Item Value Reference Range Interpretation Comments Monocytes (test code = Monocytes) 7.9 2.0-12.0 [facility] CenterLtvhjxsJSWWLFOPEZ1706-15-16 16:21:00 Test Item Value Reference Range Interpretation Comments Lymphocytes (test code = Lymphocytes) 38.2 20.0-40.0 [facility] CenterPndzhdfWHKULYLVZK3863-77-29 16:21:00 Test Item Value Reference Range Interpretation Comments Basophils (test code = 1.0 See_Comment [Aut omated message] The Basophils) system which ge nerated this result tra nsmitted reference range : <=1.0. The reference r tc was not used to int erpret this result as normal/abnormal . RewalonHwlvojtIPGYCKAATY7635-75-55 16:21:00 Test Item Value Reference Range Interpretation Comments Eosinophils (test code = 1.1 See_Comment [A utomated message] The Eosinophils) system which ge nerated this result tra nsmitted reference range : <=4.0. The reference r tc was not used to int erpret this result as normal/abnormal . RewalonTbphpqvFVTQRMCHRE9174-96-57 16:21:00 Test Item Value Reference Range Interpretation Comments Neutrophils # (test code = Neutrophils 3.1 1.5-8.1 #) [facility] [employer]2018-08-09 16:21:00 Test Item Value Reference Range Interpretation Comments Troponin-I (test code no gt See_Comment [Auto mated message] The = Troponin-I) system which g enerated this result transmit denise reference range : <=0.40. The reference r tc was not used to interpr et this result as vickie l/abnormal. [facility] [employer]2018-08-09 16:21:00 Test Item Value Reference Range Interpretation Comments CK MB (test code = CK MB) no gt 0.5-3.6 [facility] [employer]2018-08-09 16:21:00 Test Item Value Reference Range Interpretation Comments Total CK (test code = Total CK) 87 12-191 [facility] [employer]2018-08-09 16:21:00 Test Item Value Reference Range Interpretation Comments CK MB Index (test no gt See_Comment [Automate d message] The code = CK MB Index) system w [facility] generated this result transmit denise reference range : <=2.5. The reference range was not used to interpr et this result as vickie l/abnormal. [employer]2018-08-09 16:21:00 Test Item Value Reference Range Interpretation Comments Lipase Lvl (test code = Lipase Lvl) 132 73-393 [facility] [employer] [id number] 16:21:00 Test Item Value Reference Range Interpretation Comments eGFR (test code = eGFR) 99 [facility] [employer] [id number] 16:21:00 Test Item Value Reference Range Interpretation Comments Alk Phos (test code = Alk Phos) 65 39-136 [facility]2018-08-09 16:21:00 Test Item Value Reference Range Interpretation Comments Bili Total (test code = Bili Total) 0.5 0.2-1.3 [facility]2018-08-09 16:21:00 Test Item Value Reference Range Interpretation Comments A/G Ratio (test code = A/G Ratio) 1.1 1 0.7-1.6 [facility]2018-08-09 16:21:00 Test Item Value Reference Range Interpretation Comments Globulin (test code = Globulin) 3.8 2.7-4.2 [facility]2018-08-09 16:21:00 Test Item Value Reference Range Interpretation Comments B/C Ratio (test code = B/C Ratio) 15 1 6-25 [facility]2018-08-09 16:21:00 Test Item Value Reference Range Interpretation Comments AST (test code = AST) 17 See_Comment [Auto mated message] The system which ge nerated this result transmit denise reference range : <=37. The reference range was not used to interpr et this result as vickie l/abnormal. [facility]2018-08-09 16:21:00 Test Item Value Reference Range Interpretation Comments Total Protein (test code = Total 8.1 6.4-8.4 Protein) [facility]2018-08-09 16:21:00 Test Item Value Reference Range Interpretation Comments Creatinine Lvl (test code = Creatinine 1.01 0.50-1.40 Lvl) [facility]2018-08-09 16:21:00 Test Item Value Reference Range Interpretation Comments Potassium Lvl (test code = Potassium 4.3 3.5-5.1 Lvl) [facility]2018-08-09 16:21:00 Test Item Value Reference Range Interpretation Comments Sodium Lvl (test code = Sodium Lvl) 141 135-145 [facility]2018-08-09 16:21:00 Test Item Value Reference Range Interpretation Comments BUN (test code = BUN) 15 7-22 [facility]2018-08-09 16:21:00 Test Item Value Reference Range Interpretation Comments AGAP (test code = AGAP) 12.3 10.0-20.0 [facility]2018-08-09 16:21:00 Test Item Value Reference Range Interpretation Comments Chloride Lvl (test code = Chloride Lvl) 105 95-109 [facility]2018-08-09 16:21:00 Test Item Value Reference Range Interpretation Comments Albumin Lvl (test code = Albumin Lvl) 4.3 3.5-5.0 [facility]2018-08-09 16:21:00 Test Item Value Reference Range Interpretation Comments Glucose Lvl (test code = Glucose Lvl) 138 70-99 [facility]2018-08-09 16:21:00 Test Item Value Reference Range Interpretation Comments ALT (test code = ALT) 28 See_Comment [Auto mated message] The system which ge nerated this result transmit denise reference range : <=65. The reference range was not used to interpr et this result as vickie l/abnormal. [facility]2018-08-09 16:21:00 Test Item Value Reference Range Interpretation Comments Calcium Lvl (test code = Calcium Lvl) 9.1 8.5-10.5 [facility]2018-08-09 16:21:00 Test Item Value Reference Range Interpretation Comments CO2 (test code = CO2) 28 24-32 [facility]2018-08-09 16:21:00 Test Item Value Reference Range Interpretation Comments Magnesium Lvl (test code = Magnesium 2.1 1.8-2.4 Lvl) [facility] CenterEulnuxwHEVBSDTXNL9308-35-14 16:21:00 Test Item Value Reference Range Interpretation Comments Hgb (test code = Hgb) 16.0 14.0-18.0 [facility] CenterKkrpwfjUCVIBWIGQO7664-45-19 16:21:00 Test Item Value Reference Range Interpretation Comments MCV (test code = MCV) 92.3 80.0-94.0 [facility] CenterHaichvfYMCDHWDLOK2235-59-93 16:21:00 Test Item Value Reference Range Interpretation Comments Hct (test code = Hct) 47.1 42.0-54.0 [facility] CenterEqndengMRBBJHGEPB9130-57-29 16:21:00 Test Item Value Reference Range Interpretation Comments MCHC (test code = MCHC) 34.0 32.0-36.0 [facility] CenterBxaquzkGLJHUIQLFZ5318-17-90 16:21:00 Test Item Value Reference Range Interpretation Comments MCH (test code = MCH) 31.4 pg 27.0-31.0 [facility] CenterDxchlkiHNLZKCPMUI0669-78-07 16:21:00 Test Item Value Reference Range Interpretation Comments MPV (test code = MPV) 7.7 7.4-10.4 [facility] CenterYexroyiJKGPNEIRQR4966-89-15 16:21:00 Test Item Value Reference Range Interpretation Comments RDW (test code = RDW) 13.1 11.5-14.5 [facility] CenterTzoleovIWZWGKXMPE3736-89-32 16:21:00 Test Item Value Reference Range Interpretation Comments Platelet (test code = Platelet) 236 133-450 [facility] CenterXpviernIPGVOROMEG8969-18-92 16:21:00 Test Item Value Reference Range Interpretation Comments WBC (test code = WBC) 5.9 3.7-10.4 [facility] CenterVhxujmuJLDQUCBBAL3501-17-67 16:21:00 Test Item Value Reference Range Interpretation Comments RBC (test code = RBC) 5.10 4.70-6.10 [facility] CenterDejcvljCFVPNDVPHC7251-31-56 16:21:00 Test Item Value Reference Range Interpretation Comments Basophils # (test code 0.1 See_Comment [Aut omated message] The = Basophils #) system which generated this result tra nsmitted reference range : <=0.2. The reference r tc was not used to int erpret this result as normal/abnormal . [facility] CenterUxysgyvENFBEIFOWA2687-91-73 16:21:00 Test Item Value Reference Range Interpretation Comments Monocytes # (test code 0.5 See_Comment [Aut omated message] The = Monocytes #) system which generated this result tra nsmitted reference range : <=0.8. The reference r tc was not used to int erpret this result as normal/abnormal . [facility] CenterPkineysRRYOHHLHFQ5658-92-31 16:21:00 Test Item Value Reference Range Interpretation Comments Eosinophils # (test code 0.1 See_Comment [A utomated message] The = Eosinophils #) system whic h generated this result tra nsmitted reference range : <=0.5. The reference r tc was not used to int erpret this result as normal/abnormal . [facility] CenterYzjzwfyLPXIIWNRJH9530-25-39 16:21:00 Test Item Value Reference Range Interpretation Comments Lymphocytes # (test code = Lymphocytes 2.3 1.0-5.5 #) [facility]anoRokddhhYOYYXWHICK5635-85-84 16:21:00 Test Item Value Reference Range Interpretation Comments Segs (test code = Segs) 51.8 45.0-75.0 [facility]FhiwefhNLSNRLOFLP2433-[facility]-85 16:21:00 Test Item Value Reference Range Interpretation Comments Monocytes (test code = Monocytes) 7.9 2.0-12.0 [facility]awZzaejpjEKJLOAECOL6374-49-33 16:21:00 Test Item Value Reference Range Interpretation Comments Lymphocytes (test code = Lymphocytes) 38.2 20.0-40.0 [facility] LufkinDhwvniqLCKYPJCCFP8008-94-14 16:21:00 Test Item Value Reference Range Interpretation Comments Basophils (test code = 1.0 See_Comment [Aut omated message] The Basophils) system which ge nerated this result tra nsmitted reference range : <=1.0. The reference r tc was not used to int erpret this result as normal/abnormal . [facility] [id number] 16:21:00 Test Item Value Reference Range Interpretation Comments Eosinophils (test code = 1.1 See_Comment [A utomated message] The Eosinophils) system which ge nerated this result tra nsmitted reference range : <=4.0. The reference r tc was not used to int erpret this result as normal/abnormal . [id number] 16:21:00 Test Item Value Reference Range Interpretation Comments Neutrophils # (test code = Neutrophils 3.1 1.5-8.1 #) [facility] 16:21:00 Test Item Value Reference Range Interpretation Comments Troponin-I (test code no gt See_Comment [Auto mated message] The = Troponin-I) system which g enerated this result transmit denise reference range : <=0.40. The reference r tc was not used to interpr et this result as vickie l/abnormal. [facility] [id number] 16:21:00 Test Item Value Reference Range Interpretation Comments CK MB (test code = CK MB) no gt 0.5-3.6 [facility]anoInfinisourceGlobalMotion [id number] 16:21:00 Test Item Value Reference Range Interpretation Comments Total CK (test code = Total CK) 87 12-191 [facility] [id number] 16:21:00 Test Item Value Reference Range Interpretation Comments CK MB Index (test no gt See_Comment [Automate d message] The code = CK MB Index) system w [facility] generated this result transmit denise reference range : <=2.5. The reference range was not used to interpr et this result as vickie l/abnormal. [facility] [employer] [id number] 16:21:00 Test Item Value Reference Range Interpretation Comments Lipase Lvl (test code = Lipase Lvl) 132 73-393 [facility] [id number] 16:21:00 Test Item Value Reference Range Interpretation Comments eGFR (test code = eGFR) 99 [facility] [employer] [id number] 16:21:00 Test Item Value Reference Range Interpretation Comments Alk Phos (test code = Alk Phos) 65 39-136 [facility] [id number] 16:21:00 Test Item Value Reference Range Interpretation Comments Bili Total (test code = Bili Total) 0.5 0.2-1.3 [facility] [employer] [id number] 16:21:00 Test Item Value Reference Range Interpretation Comments A/G Ratio (test code = A/G Ratio) 1.1 1 0.7-1.6 [facility] [id number] 16:21:00 Test Item Value Reference Range Interpretation Comments Globulin (test code = Globulin) 3.8 2.7-4.2 [facility] [id number] 16:21:00 Test Item Value Reference Range Interpretation Comments B/C Ratio (test code = B/C Ratio) 15 1 6-25 [facility] [id number] 16:21:00 Test Item Value Reference Range Interpretation Comments AST (test code = AST) 17 See_Comment [Auto mated message] The system which ge nerated this result transmit denise reference range : <=37. The reference range was not used to interpr et this result as vickie l/abnormal. [facility] [employer] [id number] 16:21:00 Test Item Value Reference Range Interpretation Comments Total Protein (test code = Total 8.1 6.4-8.4 Protein) [facility] [id number] 16:21:00 Test Item Value Reference Range Interpretation Comments Creatinine Lvl (test code = Creatinine 1.01 0.50-1.40 Lvl) [facility]2018-08-09 16:21:00 Test Item Value Reference Range Interpretation Comments Potassium Lvl (test code = Potassium 4.3 3.5-5.1 Lvl) [facility]2018-08-09 16:21:00 Test Item Value Reference Range Interpretation Comments Sodium Lvl (test code = Sodium Lvl) 141 135-145 [facility]2018-08-09 16:21:00 Test Item Value Reference Range Interpretation Comments BUN (test code = BUN) 15 7-22 [facility]2018-08-09 16:21:00 Test Item Value Reference Range Interpretation Comments AGAP (test code = AGAP) 12.3 10.0-20.0 [facility]2018-08-09 16:21:00 Test Item Value Reference Range Interpretation Comments Chloride Lvl (test code = Chloride Lvl) 105 95-109 [facility]2018-08-09 16:21:00 Test Item Value Reference Range Interpretation Comments Albumin Lvl (test code = Albumin Lvl) 4.3 3.5-5.0 [facility]2018-08-09 16:21:00 Test Item Value Reference Range Interpretation Comments Glucose Lvl (test code = Glucose Lvl) 138 70-99 [facility]2018-08-09 16:21:00 Test Item Value Reference Range Interpretation Comments ALT (test code = ALT) 28 See_Comment [Auto mated message] The system which ge nerated this result transmit denise reference range : <=65. The reference range was not used to interpr et this result as vickie l/abnormal. [facility]2018-08-09 16:21:00 Test Item Value Reference Range Interpretation Comments Calcium Lvl (test code = Calcium Lvl) 9.1 8.5-10.5 [facility]2018-08-09 16:21:00 Test Item Value Reference Range Interpretation Comments CO2 (test code = CO2) 28 24-32 [facility]2018-08-09 16:21:00 Test Item Value Reference Range Interpretation Comments Magnesium Lvl (test code = Magnesium 2.1 1.8-2.4 Lvl) [facility] Cent[id number] 16:21:00 Test Item Value Reference Range Interpretation Comments Hgb (test code = Hgb) 16.0 14.0-18.0 [facility] [id number] 16:21:00 Test Item Value Reference Range Interpretation Comments MCV (test code = MCV) 92.3 80.0-94.0 [facility] CenterJycntitKFQMNRNZSM5494-31-90 16:21:00 Test Item Value Reference Range Interpretation Comments Hct (test code = Hct) 47.1 42.0-54.0 [facility] CenterJ[id number] 16:21:00 Test Item Value Reference Range Interpretation Comments MCHC (test code = MCHC) 34.0 32.0-36.0 [facility] [id number] 16:21:00 Test Item Value Reference Range Interpretation Comments MCH (test code = MCH) 31.4 pg 27.0-31.0 [facility] CenterDfgtbjsGIQJOSYMDK8426-00-96 16:21:00 Test Item Value Reference Range Interpretation Comments MPV (test code = MPV) 7.7 7.4-10.4 [facility] CenterPrxljbxCESBYJUEKT5014-66-58 16:21:00 Test Item Value Reference Range Interpretation Comments RDW (test code = RDW) 13.1 11.5-14.5 [facility] Cent[id number] 16:21:00 Test Item Value Reference Range Interpretation Comments Platelet (test code = Platelet) 236 133-450 [facility] CenterYrkzxyeXAUZQMBPEO8509-31-67 16:21:00 Test Item Value Reference Range Interpretation Comments WBC (test code = WBC) 5.9 3.7-10.4 [facility] CenterJoccdmwUGOPVXTDUF9842-41-73 16:21:00 Test Item Value Reference Range Interpretation Comments RBC (test code = RBC) 5.10 4.70-6.10 [facility] CenterNiotbxlYTKYYZOHRL7515-19-13 16:21:00 Test Item Value Reference Range Interpretation Comments Basophils # (test code 0.1 See_Comment [Aut omated message] The = Basophils #) system which generated this result tra nsmitted reference range : <=0.2. The reference r tc was not used to int erpret this result as normal/abnormal . [facility] CenterFqbnyxdLBRDYOCKAZ7295-74-07 16:21:00 Test Item Value Reference Range Interpretation Comments Monocytes # (test code 0.5 See_Comment [Aut omated message] The = Monocytes #) system which generated this result tra nsmitted reference range : <=0.8. The reference r tc was not used to int erpret this result as normal/abnormal . [facility] Cent[id number] 16:21:00 Test Item Value Reference Range Interpretation Comments Eosinophils # (test code 0.1 See_Comment [A utomated message] The = Eosinophils #) system whic h generated this result tra nsmitted reference range : <=0.5. The reference r tc was not used to int erpret this result as normal/abnormal . [facility] CenterTqrtbujZWCWJWKCCH6663-98-42 16:21:00 Test Item Value Reference Range Interpretation Comments Lymphocytes # (test code = Lymphocytes 2.3 1.0-5.5 #) [facility] CenterQvpgiepRNBASCWRSQ9434-03-24 16:21:00 Test Item Value Reference Range Interpretation Comments Segs (test code = Segs) 51.8 45.0-75.0 [facility] Cent[id number] 16:21:00 Test Item Value Reference Range Interpretation Comments Monocytes (test code = Monocytes) 7.9 2.0-12.0 [facility] CenterUmelxzdDHRCKEDRBV7488-58-06 16:21:00 Test Item Value Reference Range Interpretation Comments Lymphocytes (test code = Lymphocytes) 38.2 20.0-40.0 [facility] CenterXrwomunPTOJPNJYIV9265-72-26 16:21:00 Test Item Value Reference Range Interpretation Comments Basophils (test code = 1.0 See_Comment [Aut omated message] The Basophils) system which ge nerated this result tra nsmitted reference range : <=1.0. The reference r tc was not used to int erpret this result as normal/abnormal . [facility] CenterTgeaveoGYFMMUTPPZ3430-07-32 16:21:00 Test Item Value Reference Range Interpretation Comments Eosinophils (test code = 1.1 See_Comment [A utomated message] The Eosinophils) system which ge nerated this result tra nsmitted reference range : <=4.0. The reference r tc was not used to int erpret this result as normal/abnormal . [facility] CenterJjgfpqwMMXYHXZZUC0457-05-01 16:21:00 Test Item Value Reference Range Interpretation Comments Neutrophils # (test code = Neutrophils 3.1 1.5-8.1 #) [facility] [id number] 16:21:00 Test Item Value Reference Range Interpretation Comments Troponin-I (test code no gt See_Comment [Auto mated message] The = Troponin-I) system which g enerated this result transmit denise reference range : <=0.40. The reference r tc was not used to interpr et this result as vickie l/abnormal. [facility] [id number] 16:21:00 Test Item Value Reference Range Interpretation Comments CK MB (test code = CK MB) no gt 0.5-3.6 [facility]2018-08-09 16:21:00 Test Item Value Reference Range Interpretation Comments Total CK (test code = Total CK) 87 12-191 [facility]2018-08-09 16:21:00 Test Item Value Reference Range Interpretation Comments CK MB Index (test no gt See_Comment [Automate d message] The code = CK MB Index) system w [facility] generated this result transmit denise reference range : <=2.5. The reference range was not used to interpr et this result as vickie l/abnormal. [facility]2018-08-09 16:21:00 Test Item Value Reference Range Interpretation Comments Lipase Lvl (test code = Lipase Lvl) 132 73-393 [employer] [id number] 16:21:00 Test Item Value Reference Range Interpretation Comments eGFR (test code = eGFR) 99 [facility]2018-08-09 16:21:00 Test Item Value Reference Range Interpretation Comments Alk Phos (test code = Alk Phos) 65 39-136 [facility]2018-08-09 16:21:00 Test Item Value Reference Range Interpretation Comments Bili Total (test code = Bili Total) 0.5 0.2-1.3 [facility]2018-08-09 16:21:00 Test Item Value Reference Range Interpretation Comments A/G Ratio (test code = A/G Ratio) 1.1 1 0.7-1.6 [facility]2018-08-09 16:21:00 Test Item Value Reference Range Interpretation Comments Globulin (test code = Globulin) 3.8 2.7-4.2 [facility]2018-08-09 16:21:00 Test Item Value Reference Range Interpretation Comments B/C Ratio (test code = B/C Ratio) 15 1 6-25 [facility]2018-08-09 16:21:00 Test Item Value Reference Range Interpretation Comments AST (test code = AST) 17 See_Comment [Auto mated message] The system which ge nerated this result transmit denise reference range : <=37. The reference range was not used to interpr et this result as vickie l/abnormal. [facility]2018-08-09 16:21:00 Test Item Value Reference Range Interpretation Comments Total Protein (test code = Total 8.1 6.4-8.4 Protein) [facility]2018-08-09 16:21:00 Test Item Value Reference Range Interpretation Comments Creatinine Lvl (test code = Creatinine 1.01 0.50-1.40 Lvl) [facility]2018-08-09 16:21:00 Test Item Value Reference Range Interpretation Comments Potassium Lvl (test code = Potassium 4.3 3.5-5.1 Lvl) [facility]2018-08-09 16:21:00 Test Item Value Reference Range Interpretation Comments Sodium Lvl (test code = Sodium Lvl) 141 135-145 [facility]2018-08-09 16:21:00 Test Item Value Reference Range Interpretation Comments BUN (test code = BUN) 15 7-22 [facility]2018-08-09 16:21:00 Test Item Value Reference Range Interpretation Comments AGAP (test code = AGAP) 12.3 10.0-20.0 [facility]2018-08-09 16:21:00 Test Item Value Reference Range Interpretation Comments Chloride Lvl (test code = Chloride Lvl) 105 95-109 [facility]2018-08-09 16:21:00 Test Item Value Reference Range Interpretation Comments Albumin Lvl (test code = Albumin Lvl) 4.3 3.5-5.0 [facility]2018-08-09 16:21:00 Test Item Value Reference Range Interpretation Comments Glucose Lvl (test code = Glucose Lvl) 138 70-99 [facility]2018-08-09 16:21:00 Test Item Value Reference Range Interpretation Comments ALT (test code = ALT) 28 See_Comment [Auto mated message] The system which ge nerated this result transmit denise reference range : <=65. The reference range was not used to interpr et this result as vickie l/abnormal. [facility]2018-08-09 16:21:00 Test Item Value Reference Range Interpretation Comments Calcium Lvl (test code = Calcium Lvl) 9.1 8.5-10.5 [facility]2018-08-09 16:21:00 Test Item Value Reference Range Interpretation Comments CO2 (test code = CO2) 28 24-32 [facility]2018-08-09 16:21:00 Test Item Value Reference Range Interpretation Comments Magnesium Lvl (test code = Magnesium 2.1 1.8-2.4 Lvl) [facility] CenterNylfpueEVBYKSMKWF9886-02-71 16:21:00 Test Item Value Reference Range Interpretation Comments Hgb (test code = Hgb) 16.0 14.0-18.0 [facility] CenterXbvywciOOSBOJZPPH3095-41-76 16:21:00 Test Item Value Reference Range Interpretation Comments MCV (test code = MCV) 92.3 80.0-94.0 [facility] CenterDjyfykrKZYFZLEDQO2334-43-58 16:21:00 Test Item Value Reference Range Interpretation Comments Hct (test code = Hct) 47.1 42.0-54.0 [facility] CenterRmvqcizFLOWWANYBX2674-41-62 16:21:00 Test Item Value Reference Range Interpretation Comments MCHC (test code = MCHC) 34.0 32.0-36.0 [facility] CenterZwalmbcVWEKSFMZPT4408-04-85 16:21:00 Test Item Value Reference Range Interpretation Comments MCH (test code = MCH) 31.4 pg 27.0-31.0 [facility] CenterNyeygewFCIIEFVBDH1285-10-07 16:21:00 Test Item Value Reference Range Interpretation Comments MPV (test code = MPV) 7.7 7.4-10.4 [facility] CenterPdagfzrMGQEXJMABS6473-83-31 16:21:00 Test Item Value Reference Range Interpretation Comments RDW (test code = RDW) 13.1 11.5-14.5 [facility] CenterIwcutwyGXCCJWBKFH2162-21-27 16:21:00 Test Item Value Reference Range Interpretation Comments Platelet (test code = Platelet) 236 133-450 [facility] CenterWwoizymHMBTFXGOAD4267-28-80 16:21:00 Test Item Value Reference Range Interpretation Comments WBC (test code = WBC) 5.9 3.7-10.4 [facility] CenterResetgiKWAHMMTHBP5532-33-54 16:21:00 Test Item Value Reference Range Interpretation Comments RBC (test code = RBC) 5.10 4.70-6.10 [facility] CenterJ[id number] 16:21:00 Test Item Value Reference Range Interpretation Comments Basophils # (test code 0.1 See_Comment [Aut omated message] The = Basophils #) system which generated this result tra nsmitted reference range : <=0.2. The reference r tc was not used to int erpret this result as normal/abnormal . [facility] CenterKtmqjcqYNSHEICKGP3515-73-17 16:21:00 Test Item Value Reference Range Interpretation Comments Monocytes # (test code 0.5 See_Comment [Aut omated message] The = Monocytes #) system which generated this result tra nsmitted reference range : <=0.8. The reference r tc was not used to int erpret this result as normal/abnormal . [facility] CenterPpypvvvPUOTPBJJNF6578-46-65 16:21:00 Test Item Value Reference Range Interpretation Comments Eosinophils # (test code 0.1 See_Comment [A utomated message] The = Eosinophils #) system whic h generated this result tra nsmitted reference range : <=0.5. The reference r tc was not used to int erpret this result as normal/abnormal . [facility] CenterKylsmkeBXYVCSGAGU8979-66-73 16:21:00 Test Item Value Reference Range Interpretation Comments Lymphocytes # (test code = Lymphocytes 2.3 1.0-5.5 #) [facility] CenterOdcpusiXZEDUKWDPQ3953-50-83 16:21:00 Test Item Value Reference Range Interpretation Comments Segs (test code = Segs) 51.8 45.0-75.0 [facility] CenterMgxuechDZUFWMZQXP5258-50-68 16:21:00 Test Item Value Reference Range Interpretation Comments Monocytes (test code = Monocytes) 7.9 2.0-12.0 [facility] CenterNzhxtvqZLAUMKEXZE5342-45-40 16:21:00 Test Item Value Reference Range Interpretation Comments Lymphocytes (test code = Lymphocytes) 38.2 20.0-40.0 [facility] CenterKxedfedRHEUEXSAVH9032-03-32 16:21:00 Test Item Value Reference Range Interpretation Comments Basophils (test code = 1.0 See_Comment [Aut omated message] The Basophils) system which ge nerated this result tra nsmitted reference range : <=1.0. The reference r tc was not used to int erpret this result as normal/abnormal . [facility] CenterRqarswfAMBCTPFJFT8227-53-72 16:21:00 Test Item Value Reference Range Interpretation Comments Eosinophils (test code = 1.1 See_Comment [A utomated message] The Eosinophils) system which ge nerated this result tra nsmitted reference range : <=4.0. The reference r tc was not used to int erpret this result as normal/abnormal . [facility] CenterLavqbzhRRGFRRUVXG2599-47-31 16:21:00 Test Item Value Reference Range Interpretation Comments Neutrophils # (test code = Neutrophils 3.1 1.5-8.1 #) [facility] AND [id number] 16:50:00 Test Item Value Reference Range Interpretation Comments UA Blood (test code = Negative (08/27/17 11:50 UA Blood) AM) [facility] AND [id number] 16:50:00 Test Item Value Reference Range Interpretation Comments UA Nitrite (test code Negative (08/27/17 11:50 = UA Nitrite) AM) [facility] AND [id number] 16:50:00 Test Item Value Reference Range Interpretation Comments UA Leuk Est (test Negative (08/27/17 11:50 code = UA Leuk Est) AM) [facility] AND [id number] 16:50:00 Test Item Value Reference Range Interpretation Comments UA Urobilinogen (test code = UA 0.2 0.1-1.0 Urobilinogen) [facility] AND [id number] 16:50:00 Test Item Value Reference Range Interpretation Comments UA Sq Epi (test code = UA Sq Epi) Few /LPF [facility] AND [id number] 16:50:00 Test Item Value Reference Range Interpretation Comments UA Spec Grav (test *NA*(08/27/17 11:50 AM) code = UA Spec Grav) [facility] AND [id number] 16:50:00 Test Item Value Reference Range Interpretation Comments UA Turbidity (test code = Clear (08/27/17 11:50 UA Turbidity) AM) [facility] AND [id number] 16:50:00 Test Item Value Reference Range Interpretation Comments UA Glucose (test code Negative (08/27/17 11:50 = UA Glucose) AM) [facility] AND [id number] 16:50:00 Test Item Value Reference Range Interpretation Comments UA pH (test code = UA pH) 7.0 1 5.0-8.0 [facility] AND [id number] 16:50:00 Test Item Value Reference Range Interpretation Comments UA Protein (test code Negative (08/27/17 11:50 = UA Protein) AM) [facility] AND [id number] 16:50:00 Test Item Value Reference Range Interpretation Comments UA Ketones (test code Negative *NA*(08/27/17 = UA Ketones) 11:50 AM) [facility] AND [id number] 16:50:00 Test Item Value Reference Range Interpretation Comments UA Bili (test code = Negative *NA*(08/27/17 UA Bili) 11:50 AM) [facility] AND [id number] 16:50:00 Test Item Value Reference Range Interpretation Comments UA Color (test code = Yellow *NA*(08/27/17 UA Color) 11:50 AM) [facility] AND [id number] 16:50:00 Test Item Value Reference Range Interpretation Comments UA Blood (test code = Negative (08/27/17 11:50 UA Blood) AM) [facility] AND [id number] 16:50:00 Test Item Value Reference Range Interpretation Comments UA Nitrite (test code Negative (08/27/17 11:50 = UA Nitrite) AM) [facility] AND [id number] 16:50:00 Test Item Value Reference Range Interpretation Comments UA Leuk Est (test Negative (08/27/17 11:50 code = UA Leuk Est) AM) [facility] AND [id number] 16:50:00 Test Item Value Reference Range Interpretation Comments UA Urobilinogen (test code = UA 0.2 0.1-1.0 Urobilinogen) [facility] AND [id number] 16:50:00 Test Item Value Reference Range Interpretation Comments UA Sq Epi (test code = UA Sq Epi) Few /LPF [facility] [id number] 16:50:00 Test Item Value Reference Range Interpretation Comments UA Spec Grav (test *NA*(08/27/17 11:50 AM) code = UA Spec Grav) [facility] AND [id number] 16:50:00 Test Item Value Reference Range Interpretation Comments UA Turbidity (test code = Clear (08/27/17 11:50 UA Turbidity) AM) [facility] AND [id number] 16:50:00 Test Item Value Reference Range Interpretation Comments UA Blood (test code = Negative (08/27/17 11:50 UA Blood) AM) [facility] AND [id number] 16:50:00 Test Item Value Reference Range Interpretation Comments UA Nitrite (test code Negative (08/27/17 11:50 = UA Nitrite) AM) [facility] AND [id number] 16:50:00 Test Item Value Reference Range Interpretation Comments UA Leuk Est (test Negative (08/27/17 11:50 code = UA Leuk Est) AM) [facility] AND [id number] 16:50:00 Test Item Value Reference Range Interpretation Comments UA Urobilinogen (test code = UA 0.2 0.1-1.0 Urobilinogen) [facility] AND [id number] 16:50:00 Test Item Value Reference Range Interpretation Comments UA Sq Epi (test code = UA Sq Epi) Few /LPF [facility] AND [id number] 16:50:00 Test Item Value Reference Range Interpretation Comments UA Spec Grav (test *NA*(08/27/17 11:50 AM) code = UA Spec Grav) [facility] AND [id number] 16:50:00 Test Item Value Reference Range Interpretation Comments UA Glucose (test code Negative (08/27/17 11:50 = UA Glucose) AM) [facility] AND [id number] 16:50:00 Test Item Value Reference Range Interpretation Comments UA Turbidity (test code = Clear (08/27/17 11:50 UA Turbidity) AM) [facility] AND [id number] 16:50:00 Test Item Value Reference Range Interpretation Comments UA Glucose (test code Negative (08/27/17 11:50 = UA Glucose) AM) [facility] AND [id number] 16:50:00 Test Item Value Reference Range Interpretation Comments UA pH (test code = UA pH) 7.0 1 5.0-8.0 [facility] AND [id number] 16:50:00 Test Item Value Reference Range Interpretation Comments UA Protein (test code Negative (08/27/17 11:50 = UA Protein) AM) [facility] AND [id number] 16:50:00 Test Item Value Reference Range Interpretation Comments UA Ketones (test code Negative *NA*(08/27/17 = UA Ketones) 11:50 AM) [facility] AND [id number] 16:50:00 Test Item Value Reference Range Interpretation Comments UA Bili (test code = Negative *NA*(08/27/17 UA Bili) 11:50 AM) [facility] AND [id number] 16:50:00 Test Item Value Reference Range Interpretation Comments UA Color (test code = Yellow *NA*(08/27/17 UA Color) 11:50 AM) [facility] AND [id number] 16:50:00 Test Item Value Reference Range Interpretation Comments UA pH (test code = UA pH) 7.0 1 5.0-8.0 [facility] AND [id number] 16:50:00 Test Item Value Reference Range Interpretation Comments UA Protein (test code Negative (08/27/17 11:50 = UA Protein) AM) [facility] AND [id number] 16:50:00 Test Item Value Reference Range Interpretation Comments UA Ketones (test code Negative *NA*(08/27/17 = UA Ketones) 11:50 AM) [facility] AND [id number] 16:50:00 Test Item Value Reference Range Interpretation Comments UA Bili (test code = Negative *NA*(08/27/17 UA Bili) 11:50 AM) [facility] [id number] 16:50:00 Test Item Value Reference Range Interpretation Comments UA Color (test code = Yellow *NA*(08/27/17 UA Color) 11:50 AM) [facility] AND [id number] 16:50:00 Test Item Value Reference Range Interpretation Comments UA Blood (test code = Negative (08/27/17 11:50 UA Blood) AM) [facility] [id number] 16:50:00 Test Item Value Reference Range Interpretation Comments UA Nitrite (test code Negative (08/27/17 11:50 = UA Nitrite) AM) [facility] AND [id number] 16:50:00 Test Item Value Reference Range Interpretation Comments UA Leuk Est (test Negative (08/27/17 11:50 code = UA Leuk Est) AM) [facility] AND [id number] 16:50:00 Test Item Value Reference Range Interpretation Comments UA Urobilinogen (test code = UA 0.2 0.1-1.0 Urobilinogen) [facility] AND [id number] 16:50:00 Test Item Value Reference Range Interpretation Comments UA Sq Epi (test code = UA Sq Epi) Few /LPF [facility] [id number] 16:50:00 Test Item Value Reference Range Interpretation Comments UA Spec Grav (test *NA*(08/27/17 11:50 AM) code = UA Spec Grav) [facility] AND [id number] 16:50:00 Test Item Value Reference Range Interpretation Comments UA Turbidity (test code = Clear (08/27/17 11:50 UA Turbidity) AM) [facility] AND [id number] 16:50:00 Test Item Value Reference Range Interpretation Comments UA Glucose (test code Negative (08/27/17 11:50 = UA Glucose) AM) [facility] AND [id number] 16:50:00 Test Item Value Reference Range Interpretation Comments UA pH (test code = UA pH) 7.0 1 5.0-8.0 [facility] AND [id number] 16:50:00 Test Item Value Reference Range Interpretation Comments UA Protein (test code Negative (08/27/17 11:50 = UA Protein) AM) [facility] AND [id number] 16:50:00 Test Item Value Reference Range Interpretation Comments UA Ketones (test code Negative *NA*(08/27/17 = UA Ketones) 11:50 AM) [facility] AND [id number] 16:50:00 Test Item Value Reference Range Interpretation Comments UA Bili (test code = Negative *NA*(08/27/17 UA Bili) 11:50 AM) [facility] AND [id number] 16:50:00 Test Item Value Reference Range Interpretation Comments UA Color (test code = Yellow *NA*(08/27/17 UA Color) 11:50 AM) [facility] AND [id number] 16:50:00 Test Item Value Reference Range Interpretation Comments UA Blood (test code = Negative (08/27/17 11:50 UA Blood) AM) [facility] [id number] 16:50:00 Test Item Value Reference Range Interpretation Comments UA Nitrite (test code Negative (08/27/17 11:50 = UA Nitrite) AM) [facility] AND [id number] 16:50:00 Test Item Value Reference Range Interpretation Comments UA Leuk Est (test Negative (08/27/17 11:50 code = UA Leuk Est) AM) [facility] AND [id number] 16:50:00 Test Item Value Reference Range Interpretation Comments UA Urobilinogen (test code = UA 0.2 0.1-1.0 Urobilinogen) [facility] AND [id number] 16:50:00 Test Item Value Reference Range Interpretation Comments UA Sq Epi (test code = UA Sq Epi) Few /LPF [facility] AND [id number] 16:50:00 Test Item Value Reference Range Interpretation Comments UA Spec Grav (test *NA*(08/27/17 11:50 AM) code = UA Spec Grav) [facility] AND [id number] 16:50:00 Test Item Value Reference Range Interpretation Comments UA Turbidity (test code = Clear (08/27/17 11:50 UA Turbidity) AM) [facility] AND [id number] 16:50:00 Test Item Value Reference Range Interpretation Comments UA Glucose (test code Negative (08/27/17 11:50 = UA Glucose) AM) [facility] AND [id number] 16:50:00 Test Item Value Reference Range Interpretation Comments UA pH (test code = UA pH) 7.0 1 5.0-8.0 [facility] AND [id number] 16:50:00 Test Item Value Reference Range Interpretation Comments UA Protein (test code Negative (08/27/17 11:50 = UA Protein) AM) [facility] AND [id number] 16:50:00 Test Item Value Reference Range Interpretation Comments UA Ketones (test code Negative *NA*(08/27/17 = UA Ketones) 11:50 AM) [facility] AND [id number] 16:50:00 Test Item Value Reference Range Interpretation Comments UA Bili (test code = Negative *NA*(08/27/17 UA Bili) 11:50 AM) [facility] [id number] 16:50:00 Test Item Value Reference Range Interpretation Comments UA Color (test code = Yellow *NA*(08/27/17 UA Color) 11:50 AM) [facility] AND [id number] 16:50:00 Test Item Value Reference Range Interpretation Comments UA Blood (test code = Negative (08/27/17 11:50 UA Blood) AM) [facility] AND [id number] 16:50:00 Test Item Value Reference Range Interpretation Comments UA Nitrite (test code Negative (08/27/17 11:50 = UA Nitrite) AM) [facility] AND [id number] 16:50:00 Test Item Value Reference Range Interpretation Comments UA Leuk Est (test Negative (08/27/17 11:50 code = UA Leuk Est) AM) [facility] AND [id number] 16:50:00 Test Item Value Reference Range Interpretation Comments UA Urobilinogen (test code = UA 0.2 0.1-1.0 Urobilinogen) [facility] AND [id number] 16:50:00 Test Item Value Reference Range Interpretation Comments UA Sq Epi (test code = UA Sq Epi) Few /LPF [facility] AND [id number] 16:50:00 Test Item Value Reference Range Interpretation Comments UA Spec Grav (test *NA*(08/27/17 11:50 AM) code = UA Spec Grav) [facility] AND [id number] 16:50:00 Test Item Value Reference Range Interpretation Comments UA Turbidity (test code = Clear (08/27/17 11:50 UA Turbidity) AM) [facility] AND [id number] 16:50:00 Test Item Value Reference Range Interpretation Comments UA Glucose (test code Negative (08/27/17 11:50 = UA Glucose) AM) [facility] AND [id number] 16:50:00 Test Item Value Reference Range Interpretation Comments UA pH (test code = UA pH) 7.0 1 5.0-8.0 [facility] AND [id number] 16:50:00 Test Item Value Reference Range Interpretation Comments UA Protein (test code Negative (08/27/17 11:50 = UA Protein) AM) [facility] AND [id number] 16:50:00 Test Item Value Reference Range Interpretation Comments UA Ketones (test code Negative *NA*(08/27/17 = UA Ketones) 11:50 AM) [facility] AND [id number] 16:50:00 Test Item Value Reference Range Interpretation Comments UA Bili (test code = Negative *NA*(08/27/17 UA Bili) 11:50 AM) [facility] AND [id number] 16:50:00 Test Item Value Reference Range Interpretation Comments UA Color (test code = Yellow *NA*(08/27/17 UA Color) 11:50 AM) [facility] AND [id number] 16:50:00 Test Item Value Reference Range Interpretation Comments UA Blood (test code = Negative (08/27/17 11:50 UA Blood) AM) [facility] AND [id number] 16:50:00 Test Item Value Reference Range Interpretation Comments UA Nitrite (test code Negative (08/27/17 11:50 = UA Nitrite) AM) [facility] AND [id number] 16:50:00 Test Item Value Reference Range Interpretation Comments UA Leuk Est (test Negative (08/27/17 11:50 code = UA Leuk Est) AM) [facility] AND [id number] 16:50:00 Test Item Value Reference Range Interpretation Comments UA Urobilinogen (test code = UA 0.2 0.1-1.0 Urobilinogen) [facility] AND [id number] 16:50:00 Test Item Value Reference Range Interpretation Comments UA Sq Epi (test code = UA Sq Epi) Few /LPF [facility] AND [id number] 16:50:00 Test Item Value Reference Range Interpretation Comments UA Spec Grav (test *NA*(08/27/17 11:50 AM) code = UA Spec Grav) [facility] AND [id number] 16:50:00 Test Item Value Reference Range Interpretation Comments UA Turbidity (test code = Clear (08/27/17 11:50 UA Turbidity) AM) [facility] AND [id number] 16:50:00 Test Item Value Reference Range Interpretation Comments UA Glucose (test code Negative (08/27/17 11:50 = UA Glucose) AM) [facility] AND [id number] 16:50:00 Test Item Value Reference Range Interpretation Comments UA pH (test code = UA pH) 7.0 1 5.0-8.0 [facility] AND [id number] 16:50:00 Test Item Value Reference Range Interpretation Comments UA Protein (test code Negative (08/27/17 11:50 = UA Protein) AM) [facility] AND [id number] 16:50:00 Test Item Value Reference Range Interpretation Comments UA Ketones (test code Negative *NA*(08/27/17 = UA Ketones) 11:50 AM) [facility] AND [id number] 16:50:00 Test Item Value Reference Range Interpretation Comments UA Bili (test code = Negative *NA*(08/27/17 UA Bili) 11:50 AM) [facility] AND [id number] 16:50:00 Test Item Value Reference Range Interpretation Comments UA Color (test code = Yellow *NA*(08/27/17 UA Color) 11:50 AM) [facility] AND [id number] 16:50:00 Test Item Value Reference Range Interpretation Comments UA Blood (test code = Negative (08/27/17 11:50 UA Blood) AM) [facility] AND [id number] 16:50:00 Test Item Value Reference Range Interpretation Comments UA Nitrite (test code Negative (08/27/17 11:50 = UA Nitrite) AM) [facility] AND [id number] 16:50:00 Test Item Value Reference Range Interpretation Comments UA Leuk Est (test Negative (08/27/17 11:50 code = UA Leuk Est) AM) [facility] AND [id number] 16:50:00 Test Item Value Reference Range Interpretation Comments UA Urobilinogen (test code = UA 0.2 0.1-1.0 Urobilinogen) [facility] AND [id number] 16:50:00 Test Item Value Reference Range Interpretation Comments UA Sq Epi (test code = UA Sq Epi) Few /LPF [facility] AND [id number] 16:50:00 Test Item Value Reference Range Interpretation Comments UA Spec Grav (test *NA*(08/27/17 11:50 AM) code = UA Spec Grav) [facility] AND [id number] 16:50:00 Test Item Value Reference Range Interpretation Comments UA Turbidity (test code = Clear (08/27/17 11:50 UA Turbidity) AM) [facility] AND [id number] 16:50:00 Test Item Value Reference Range Interpretation Comments UA Glucose (test code Negative (08/27/17 11:50 = UA Glucose) AM) [facility] AND [id number] 16:50:00 Test Item Value Reference Range Interpretation Comments UA pH (test code = UA pH) 7.0 1 5.0-8.0 [facility] AND [id number] 16:50:00 Test Item Value Reference Range Interpretation Comments UA Protein (test code Negative (08/27/17 11:50 = UA Protein) AM) [facility] AND [id number] 16:50:00 Test Item Value Reference Range Interpretation Comments UA Ketones (test code Negative *NA*(08/27/17 = UA Ketones) 11:50 AM) [facility] AND [id number] 16:50:00 Test Item Value Reference Range Interpretation Comments UA Bili (test code = Negative *NA*(08/27/17 UA Bili) 11:50 AM) [facility] AND [id number] 16:50:00 Test Item Value Reference Range Interpretation Comments UA Color (test code = Yellow *NA*(08/27/17 UA Color) 11:50 AM) [facility] AND [id number] 16:50:00 Test Item Value Reference Range Interpretation Comments UA Blood (test code = Negative (08/27/17 11:50 UA Blood) AM) [facility] AND [id number] 16:50:00 Test Item Value Reference Range Interpretation Comments UA Nitrite (test code Negative (08/27/17 11:50 = UA Nitrite) AM) [facility] AND [id number] 16:50:00 Test Item Value Reference Range Interpretation Comments UA Leuk Est (test Negative (08/27/17 11:50 code = UA Leuk Est) AM) [facility] AND [id number] 16:50:00 Test Item Value Reference Range Interpretation Comments UA Urobilinogen (test code = UA 0.2 0.1-1.0 Urobilinogen) [facility] AND [id number] 16:50:00 Test Item Value Reference Range Interpretation Comments UA Sq Epi (test code = UA Sq Epi) Few /LPF [facility] AND [id number] 16:50:00 Test Item Value Reference Range Interpretation Comments UA Spec Grav (test *NA*(08/27/17 11:50 AM) code = UA Spec Grav) [facility] AND [id number] 16:50:00 Test Item Value Reference Range Interpretation Comments UA Turbidity (test code = Clear (08/27/17 11:50 UA Turbidity) AM) [facility] AND [id number] 16:50:00 Test Item Value Reference Range Interpretation Comments UA Glucose (test code Negative (08/27/17 11:50 = UA Glucose) AM) [facility] AND [id number] 16:50:00 Test Item Value Reference Range Interpretation Comments UA pH (test code = UA pH) 7.0 1 5.0-8.0 [facility] AND [id number] 16:50:00 Test Item Value Reference Range Interpretation Comments UA Protein (test code Negative (08/27/17 11:50 = UA Protein) AM) [facility] AND [id number] 16:50:00 Test Item Value Reference Range Interpretation Comments UA Ketones (test code Negative *NA*(08/27/17 = UA Ketones) 11:50 AM) [facility] AND [id number] 16:50:00 Test Item Value Reference Range Interpretation Comments UA Bili (test code = Negative *NA*(08/27/17 UA Bili) 11:50 AM) [facility] AND [id number] 16:50:00 Test Item Value Reference Range Interpretation Comments UA Color (test code = Yellow *NA*(08/27/17 UA Color) 11:50 AM) [facility] AND [id number] 16:50:00 Test Item Value Reference Range Interpretation Comments UA Blood (test code = Negative (08/27/17 11:50 UA Blood) AM) [facility] AND [id number] 16:50:00 Test Item Value Reference Range Interpretation Comments UA Nitrite (test code Negative (08/27/17 11:50 = UA Nitrite) AM) [facility] AND [id number] 16:50:00 Test Item Value Reference Range Interpretation Comments UA Leuk Est (test Negative (08/27/17 11:50 code = UA Leuk Est) AM) [facility] AND [id number] 16:50:00 Test Item Value Reference Range Interpretation Comments UA Urobilinogen (test code = UA 0.2 0.1-1.0 Urobilinogen) [facility] AND [id number] 16:50:00 Test Item Value Reference Range Interpretation Comments UA Sq Epi (test code = UA Sq Epi) Few /LPF [facility] AND [id number] 16:50:00 Test Item Value Reference Range Interpretation Comments UA Spec Grav (test *NA*(08/27/17 11:50 AM) code = UA Spec Grav) [facility] [id number] 16:50:00 Test Item Value Reference Range Interpretation Comments UA Turbidity (test code = Clear (08/27/17 11:50 UA Turbidity) AM) [facility] AND [id number] 16:50:00 Test Item Value Reference Range Interpretation Comments UA Glucose (test code Negative (08/27/17 11:50 = UA Glucose) AM) [facility] AND [id number] 16:50:00 Test Item Value Reference Range Interpretation Comments UA pH (test code = UA pH) 7.0 1 5.0-8.0 [facility] AND [id number] 16:50:00 Test Item Value Reference Range Interpretation Comments UA Protein (test code Negative (08/27/17 11:50 = UA Protein) AM) [facility] [id number] 16:50:00 Test Item Value Reference Range Interpretation Comments UA Ketones (test code Negative *NA*(08/27/17 = UA Ketones) 11:50 AM) [facility] [id number] 16:50:00 Test Item Value Reference Range Interpretation Comments UA Bili (test code = Negative *NA*(08/27/17 UA Bili) 11:50 AM) [facility] [id number] 16:50:00 Test Item Value Reference Range Interpretation Comments UA Color (test code = Yellow *NA*(08/27/17 UA Color) 11:50 AM) [facility] AND [id number] 16:50:00 Test Item Value Reference Range Interpretation Comments UA Blood (test code = Negative (08/27/17 11:50 UA Blood) AM) [facility] [id number] 16:50:00 Test Item Value Reference Range Interpretation Comments UA Nitrite (test code Negative (08/27/17 11:50 = UA Nitrite) AM) [facility] AND [id number] 16:50:00 Test Item Value Reference Range Interpretation Comments UA Leuk Est (test Negative (08/27/17 11:50 code = UA Leuk Est) AM) [facility] [id number] 16:50:00 Test Item Value Reference Range Interpretation Comments UA Urobilinogen (test code = UA 0.2 0.1-1.0 Urobilinogen) [facility] [id number] 16:50:00 Test Item Value Reference Range Interpretation Comments UA Sq Epi (test code = UA Sq Epi) Few /LPF [facility] AND [id number] 16:50:00 Test Item Value Reference Range Interpretation Comments UA Spec Grav (test *NA*(08/27/17 11:50 AM) code = UA Spec Grav) [facility] AND [id number] 16:50:00 Test Item Value Reference Range Interpretation Comments UA Turbidity (test code = Clear (08/27/17 11:50 UA Turbidity) AM) [facility] [id number] 16:50:00 Test Item Value Reference Range Interpretation Comments UA Glucose (test code Negative (08/27/17 11:50 = UA Glucose) AM) [facility] AND [id number] 16:50:00 Test Item Value Reference Range Interpretation Comments UA pH (test code = UA pH) 7.0 1 5.0-8.0 [facility] [id number] 16:50:00 Test Item Value Reference Range Interpretation Comments UA Protein (test code Negative (08/27/17 11:50 = UA Protein) AM) [facility] AND [id number] 16:50:00 Test Item Value Reference Range Interpretation Comments UA Ketones (test code Negative *NA*(08/27/17 = UA Ketones) 11:50 AM) [facility] AND [id number] 16:50:00 Test Item Value Reference Range Interpretation Comments UA Bili (test code = Negative *NA*(08/27/17 UA Bili) 11:50 AM) [facility] AND [id number] 16:50:00 Test Item Value Reference Range Interpretation Comments UA Color (test code = Yellow *NA*(08/27/17 UA Color) 11:50 AM) [facility] AND [id number] 16:50:00 Test Item Value Reference Range Interpretation Comments UA Blood (test code = Negative (08/27/17 11:50 UA Blood) AM) [facility] [id number] 16:50:00 Test Item Value Reference Range Interpretation Comments UA Nitrite (test code Negative (08/27/17 11:50 = UA Nitrite) AM) [facility] AND [id number] 16:50:00 Test Item Value Reference Range Interpretation Comments UA Leuk Est (test Negative (08/27/17 11:50 code = UA Leuk Est) AM) [facility] AND [id number] 16:50:00 Test Item Value Reference Range Interpretation Comments UA Urobilinogen (test code = UA 0.2 0.1-1.0 Urobilinogen) [facility] AND [id number] 16:50:00 Test Item Value Reference Range Interpretation Comments UA Sq Epi (test code = UA Sq Epi) Few /LPF [facility] AND [id number] 16:50:00 Test Item Value Reference Range Interpretation Comments UA Spec Grav (test *NA*(08/27/17 11:50 AM) code = UA Spec Grav) [facility] [id number] 16:50:00 Test Item Value Reference Range Interpretation Comments UA Turbidity (test code = Clear (08/27/17 11:50 UA Turbidity) AM) [facility] AND [id number] 16:50:00 Test Item Value Reference Range Interpretation Comments UA Glucose (test code Negative (08/27/17 11:50 = UA Glucose) AM) [facility] AND [id number] 16:50:00 Test Item Value Reference Range Interpretation Comments UA pH (test code = UA pH) 7.0 1 5.0-8.0 [facility] [id number] 16:50:00 Test Item Value Reference Range Interpretation Comments UA Protein (test code Negative (08/27/17 11:50 = UA Protein) AM) [facility] [id number] 16:50:00 Test Item Value Reference Range Interpretation Comments UA Ketones (test code Negative *NA*(08/27/17 = UA Ketones) 11:50 AM) [facility] [id number] 16:50:00 Test Item Value Reference Range Interpretation Comments UA Bili (test code = Negative *NA*(08/27/17 UA Bili) 11:50 AM) [facility] [id number] 16:50:00 Test Item Value Reference Range Interpretation Comments UA Color (test code = Yellow *NA*(08/27/17 UA Color) 11:50 AM) [id number] 16:35:00 Test Item Value Reference Range Interpretation Comments Basophils (test code = 1.7 See_Comment [Aut omated message] The Basophils) system which ge nerated this result tra nsmitted reference range : <=1.0. The reference r tc was not used to int erpret this result as normal/abnormal . [facility] [id number] 16:35:00 Test Item Value Reference Range Interpretation Comments Monocytes (test code = Monocytes) 7.5 2.0-12.0 [facility] [id number] 16:35:00 Test Item Value Reference Range Interpretation Comments MCHC (test code = MCHC) 34.0 32.0-36.0 [facility] [id number] 16:35:00 Test Item Value Reference Range Interpretation Comments MCH (test code = MCH) 31.2 pg 27.0-31.0 [facility] [id number] 16:35:00 Test Item Value Reference Range Interpretation Comments Hct (test code = Hct) 44.9 42.0-54.0 [facility] [id number] 16:35:00 Test Item Value Reference Range Interpretation Comments MCV (test code = MCV) 91.8 80.0-94.0 [facility] [id number] 16:35:00 Test Item Value Reference Range Interpretation Comments WBC X 10x3 (test code = WBC X 10x3) 5.2 3.7-10.4 [facility] [id number] 16:35:00 Test Item Value Reference Range Interpretation Comments Hgb (test code = Hgb) 15.3 14.0-18.0 [facility] [id number] 16:35:00 Test Item Value Reference Range Interpretation Comments RBC X 10x6 (test code = RBC X 10x6) 4.89 4.70-6.10 [facility] [id number] 16:35:00 Test Item Value Reference Range Interpretation Comments MPV (test code = MPV) 7.7 7.4-10.4 [facility] [id number] 16:35:00 Test Item Value Reference Range Interpretation Comments Platelet (test code = Platelet) 210 133-450 [facility] [id number] 16:35:00 Test Item Value Reference Range Interpretation Comments RDW (test code = RDW) 13.1 11.5-14.5 [place] [id number] 16:35:00 Test Item Value Reference Range Interpretation Comments Grp A Strep Scr (test Negative (08/27/17 11:35 code = Grp A Strep AM) Scr) [facility] [id number] 16:35:00 Test Item Value Reference Range Interpretation Comments Influ A (test code = Negative (08/27/17 11:35 Influ A) AM) [facility] [id number] 16:35:00 Test Item Value Reference Range Interpretation Comments Influ B (test code = Negative (08/27/17 11:35 Influ B) AM) [facility]2017-11-02 16:35:00 Test Item Value Reference Range Interpretation Comments B/C Ratio (test code = B/C Ratio) 8 6-25 [facility]2017-11-02 16:35:00 Test Item Value Reference Range Interpretation Comments Globulin (test code = Globulin) 3.6 2.7-4.2 [facility]2017-11-02 16:35:00 Test Item Value Reference Range Interpretation Comments A/G Ratio (test code = A/G Ratio) 1.1 0.7-1.6 [facility]2017-11-02 16:35:00 Test Item Value Reference Range Interpretation Comments AGAP (test code = AGAP) 7.0 10.0-20.0 [facility]2017-11-02 16:35:00 Test Item Value Reference Range Interpretation Comments eGFR (test code = eGFR) 117 [facility]2017-11-02 16:35:00 Test Item Value Reference Range Interpretation Comments Potassium Lvl (test code = Potassium 4.0 3.5-5.1 Lvl) [facility]2017-11-02 16:35:00 Test Item Value Reference Range Interpretation Comments Sodium Lvl (test code = Sodium Lvl) 140 135-145 [facility]2017-11-02 16:35:00 Test Item Value Reference Range Interpretation Comments Chloride Lvl (test code = Chloride Lvl) 105 95-109 [facility]2017-11-02 16:35:00 Test Item Value Reference Range Interpretation Comments ASPARTATE TRANSAMINASE 29 See_Comment [Aut omated message] (test code = ASPARTATE The s ystem which TRANSAMINASE) generated this result transmitted ref erence range: <=37. Th e reference range was not used to interpr et this result as normal/abnormal . [facility]2017-11-02 16:35:00 Test Item Value Reference Range Interpretation Comments ALANINE AMINOTRANSFERASE 49 See_Comment [A utomated message] (test code = ALANINE The sys tem which AMINOTRANSFERASE) generated this result transmitted ref erence range: <=65. Th e reference range was not used to int erpret this result as normal/abnormal . [facility]2017-11-02 16:35:00 Test Item Value Reference Range Interpretation Comments Albumin Lvl (test code = Albumin Lvl) 4.0 3.5-5.0 [facility]2017-11-02 16:35:00 Test Item Value Reference Range Interpretation Comments Alk Phos (test code = Alk Phos) 54 39-136 [facility]2017-11-02 16:35:00 Test Item Value Reference Range Interpretation Comments Bili Total (test code = Bili Total) 0.2 0.2-1.3 [facility]2017-11-02 16:35:00 Test Item Value Reference Range Interpretation Comments Total Protein (test code = Total 7.6 6.4-8.4 Protein) [facility]2017-11-02 16:35:00 Test Item Value Reference Range Interpretation Comments Calcium Lvl (test code = Calcium Lvl) 8.6 8.5-10.5 [facility]2017-11-02 16:35:00 Test Item Value Reference Range Interpretation Comments CO2 (test code = CO2) 32 24-32 [facility]2017-11-02 16:35:00 Test Item Value Reference Range Interpretation Comments Glucose Lvl (test code = Glucose Lvl) 101 70-99 [facility]2017-11-02 16:35:00 Test Item Value Reference Range Interpretation Comments Creatinine Lvl (test code = Creatinine 0.87 0.50-1.40 Lvl) [facility]2017-11-02 16:35:00 Test Item Value Reference Range Interpretation Comments BUN (test code = BUN) 7 7-22 [facility]2017-11-02 16:35:00 Test Item Value Reference Range Interpretation Comments Lipase Lvl (test code = Lipase Lvl) 127 73-393 [facility]95 16:35:00 Test Item Value Reference Range Interpretation Comments Basophils # (test code 0.1 See_Comment [Aut omated message] The = Basophils #) system which generated this result tra nsmitted reference range : <=0.2. The reference r tc was not used to int erpret this result as normal/abnormal . [facility] CenterOooopumAPHRMMMVWZ2277-04-04 16:35:00 Test Item Value Reference Range Interpretation Comments Lymphocytes # (test code = Lymphocytes 1.6 1.0-5.5 #) [facility] CenterCrifwuxWYMTUTMFPA2052-90-92 16:35:00 Test Item Value Reference Range Interpretation Comments Segs-Bands # (test code = Segs-Bands #) 3.1 1.5-8.1 [facility] CenterPttpvbnHGAFOYSMVL3609-35-09 16:35:00 Test Item Value Reference Range Interpretation Comments Monocytes # (test code 0.4 See_Comment [Aut omated message] The = Monocytes #) system which generated this result tra nsmitted reference range : <=0.8. The reference r tc was not used to int erpret this result as normal/abnormal . [facility] CenterNxsymjwSUEMNWBNLQ9908-34-27 16:35:00 Test Item Value Reference Range Interpretation Comments Segs (test code = Segs) 58.5 45.0-75.0 [facility] CenterAhcfyqgCXAEZPFSPB2546-43-48 16:35:00 Test Item Value Reference Range Interpretation Comments Lymphocytes (test code = Lymphocytes) 31.4 20.0-40.0 [place] [address]-11-02 16:35:00 Test Item Value Reference Range Interpretation Comments Eosinophils (test code = 0.9 See_Comment [A utomated message] The Eosinophils) system which ge nerated this result tra nsmitted reference range : <=4.0. The reference r tc was not used to int erpret this result as normal/abnormal . [facility] CenterGkgyofxJLDHDGONGC6301-10-89 16:35:00 Test Item Value Reference Range Interpretation Comments Basophils (test code = 1.7 See_Comment [Aut omated message] The Basophils) system which ge nerated this result tra nsmitted reference range : <=1.0. The reference r tc was not used to int erpret this result as normal/abnormal . [place] [address]-11-02 16:35:00 Test Item Value Reference Range Interpretation Comments Monocytes (test code = Monocytes) 7.5 2.0-12.0 [facility]YjykdezQPLHKXNZSO6290-59-68 16:35:00 Test Item Value Reference Range Interpretation Comments MCHC (test code = MCHC) 34.0 32.0-36.0 [facility]TptvlwsHMTIBSDHCC5575-92-39 16:35:00 Test Item Value Reference Range Interpretation Comments MCH (test code = MCH) 31.2 pg 27.0-31.0 [facility] CenterQlwsmtyTUTPUKVOUP1392-12-40 16:35:00 Test Item Value Reference Range Interpretation Comments Hct (test code = Hct) 44.9 42.0-54.0 [facility]LvvruffLTJQNRMWDA4157-15-40 16:35:00 Test Item Value Reference Range Interpretation Comments MCV (test code = MCV) 91.8 80.0-94.0 [facility] CenterPjgpccyCZIJJQBKLD9435-79-33 16:35:00 Test Item Value Reference Range Interpretation Comments WBC X 10x3 (test code = WBC X 10x3) 5.2 3.7-10.4 [facility] CenterHsjqmqmETIMICPZSG9043-03-74 16:35:00 Test Item Value Reference Range Interpretation Comments Hgb (test code = Hgb) 15.3 14.0-18.0 [facility] CenterNhsxiuhSITXYKCZRY9895-63-41 16:35:00 Test Item Value Reference Range Interpretation Comments RBC X 10x6 (test code = RBC X 10x6) 4.89 4.70-6.10 [facility] CenterTtyasgkTBIKVYJRWW9518-44-15 16:35:00 Test Item Value Reference Range Interpretation Comments MPV (test code = MPV) 7.7 7.4-10.4 [facility] CenterGwiqpkyICOOEVCOIC9560-64-49 16:35:00 Test Item Value Reference Range Interpretation Comments Platelet (test code = Platelet) 210 133-450 [facility] CenterVehqkdqARQJYNFEXM5532-49-41 16:35:00 Test Item Value Reference Range Interpretation Comments RDW (test code = RDW) 13.1 11.5-14.5 [place] 47209017-11-02 16:35:00 Test Item Value Reference Range Interpretation Comments Grp A Strep Scr (test Negative (08/27/17 11:35 code = Grp A Strep AM) Scr) [facility] [id number] 16:35:00 Test Item Value Reference Range Interpretation Comments Influ A (test code = Negative (08/27/17 11:35 Influ A) AM) [facility] - [id number] 16:35:00 Test Item Value Reference Range Interpretation Comments Influ B (test code = Negative (08/27/17 11:35 Influ B) AM) [facility] [id number] 16:35:00 Test Item Value Reference Range Interpretation Comments B/C Ratio (test code = B/C Ratio) 8 6-25 [facility]2017-11-02 16:35:00 Test Item Value Reference Range Interpretation Comments Globulin (test code = Globulin) 3.6 2.7-4.2 [facility]2017-11-02 16:35:00 Test Item Value Reference Range Interpretation Comments A/G Ratio (test code = A/G Ratio) 1.1 0.7-1.6 [facility]2017-11-02 16:35:00 Test Item Value Reference Range Interpretation Comments AGAP (test code = AGAP) 7.0 10.0-20.0 [facility]2017-11-02 16:35:00 Test Item Value Reference Range Interpretation Comments eGFR (test code = eGFR) 117 [facility]2017-11-02 16:35:00 Test Item Value Reference Range Interpretation Comments Potassium Lvl (test code = Potassium 4.0 3.5-5.1 Lvl) [facility]2017-11-02 16:35:00 Test Item Value Reference Range Interpretation Comments Sodium Lvl (test code = Sodium Lvl) 140 135-145 [facility]2017-11-02 16:35:00 Test Item Value Reference Range Interpretation Comments Chloride Lvl (test code = Chloride Lvl) 105 95-109 [facility]2017-11-02 16:35:00 Test Item Value Reference Range Interpretation Comments ASPARTATE TRANSAMINASE 29 See_Comment [Aut omated message] (test code = ASPARTATE The s ystem which TRANSAMINASE) generated this result transmitted ref erence range: <=37. Th e reference range was not used to interpr et this result as normal/abnormal . [facility]2017-11-02 16:35:00 Test Item Value Reference Range Interpretation Comments ALANINE AMINOTRANSFERASE 49 See_Comment [A utomated message] (test code = ALANINE The sys tem which AMINOTRANSFERASE) generated this result transmitted ref erence range: <=65. Th e reference range was not used to int erpret this result as normal/abnormal . [facility]2017-11-02 16:35:00 Test Item Value Reference Range Interpretation Comments Albumin Lvl (test code = Albumin Lvl) 4.0 3.5-5.0 [facility]2017-11-02 16:35:00 Test Item Value Reference Range Interpretation Comments Alk Phos (test code = Alk Phos) 54 39-136 [facility]2017-11-02 16:35:00 Test Item Value Reference Range Interpretation Comments Bili Total (test code = Bili Total) 0.2 0.2-1.3 [facility]2017-11-02 16:35:00 Test Item Value Reference Range Interpretation Comments Total Protein (test code = Total 7.6 6.4-8.4 Protein) [facility]2017-11-02 16:35:00 Test Item Value Reference Range Interpretation Comments Calcium Lvl (test code = Calcium Lvl) 8.6 8.5-10.5 [facility]2017-11-02 16:35:00 Test Item Value Reference Range Interpretation Comments CO2 (test code = CO2) 32 24-32 [facility]2017-11-02 16:35:00 Test Item Value Reference Range Interpretation Comments Glucose Lvl (test code = Glucose Lvl) 101 70-99 [facility]2017-11-02 16:35:00 Test Item Value Reference Range Interpretation Comments Creatinine Lvl (test code = Creatinine 0.87 0.50-1.40 Lvl) [facility]2017-11-02 16:35:00 Test Item Value Reference Range Interpretation Comments BUN (test code = BUN) 7 7-22 [facility]2017-11-02 16:35:00 Test Item Value Reference Range Interpretation Comments Lipase Lvl (test code = Lipase Lvl) 127 73-393 [facility] CenterAfgoxfpPBJPBFSPPS9231-39-82 16:35:00 Test Item Value Reference Range Interpretation Comments Basophils # (test code 0.1 See_Comment [Aut omated message] The = Basophils #) system which generated this result tra nsmitted reference range : <=0.2. The reference r tc was not used to int erpret this result as normal/abnormal . [facility] CenterLxyltiqQXVLQYLXFB0389-64-43 16:35:00 Test Item Value Reference Range Interpretation Comments Lymphocytes # (test code = Lymphocytes 1.6 1.0-5.5 #) [facility] CenterZjahavnLNGLCKXSKM5301-33-22 16:35:00 Test Item Value Reference Range Interpretation Comments Segs-Bands # (test code = Segs-Bands #) 3.1 1.5-8.1 [facility] CenterHfeitljCPFZMXIDZH7892-93-98 16:35:00 Test Item Value Reference Range Interpretation Comments Monocytes # (test code 0.4 See_Comment [Aut omated message] The = Monocytes #) system which generated this result tra nsmitted reference range : <=0.8. The reference r tc was not used to int erpret this result as normal/abnormal . [facility] CenterOrlxknvKCJAYSZNBF8701-99-18 16:35:00 Test Item Value Reference Range Interpretation Comments Segs (test code = Segs) 58.5 45.0-75.0 [place] [address]-11-02 16:35:00 Test Item Value Reference Range Interpretation Comments Lymphocytes (test code = Lymphocytes) 31.4 20.0-40.0 [facility] CenterYbvrhepCORCVHSTGP3264-28-59 16:35:00 Test Item Value Reference Range Interpretation Comments Eosinophils (test code = 0.9 See_Comment [A utomated message] The Eosinophils) system which ge nerated this result tra nsmitted reference range : <=4.0. The reference r tc was not used to int erpret this result as normal/abnormal . [facility] CenterAuwmwfqWWSXBJLIOD6958-74-79 16:35:00 Test Item Value Reference Range Interpretation Comments Basophils (test code = 1.7 See_Comment [Aut omated message] The Basophils) system which ge nerated this result tra nsmitted reference range : <=1.0. The reference r tc was not used to int erpret this result as normal/abnormal . [facility] CenterJprmyjlYMWOAVMTNR7784-26-74 16:35:00 Test Item Value Reference Range Interpretation Comments Monocytes (test code = Monocytes) 7.5 2.0-12.0 [place] [address]-11-02 16:35:00 Test Item Value Reference Range Interpretation Comments MCHC (test code = MCHC) 34.0 32.0-36.0 [facility] CenterEctdookNEBPBKWIAN6756-80-66 16:35:00 Test Item Value Reference Range Interpretation Comments MCH (test code = MCH) 31.2 pg 27.0-31.0 [facility] CenterGcerkwiZHAWODMQLK4287-56-82 16:35:00 Test Item Value Reference Range Interpretation Comments Hct (test code = Hct) 44.9 42.0-54.0 [facility] CenterRdvzzodGHKFIXUXXA3608-87-02 16:35:00 Test Item Value Reference Range Interpretation Comments MCV (test code = MCV) 91.8 80.0-94.0 [facility] CenterMjeewgaMFKQAXBCMH6278-62-83 16:35:00 Test Item Value Reference Range Interpretation Comments WBC X 10x3 (test code = WBC X 10x3) 5.2 3.7-10.4 [facility] CenterOqrkmbuVWRNVKMJFX2307-27-75 16:35:00 Test Item Value Reference Range Interpretation Comments Hgb (test code = Hgb) 15.3 14.0-18.0 [facility] CenterHtgigtgWLAEMRRTVO9003-34-38 16:35:00 Test Item Value Reference Range Interpretation Comments RBC X 10x6 (test code = RBC X 10x6) 4.89 4.70-6.10 [facility] CenterFglixheEWWMTHPMGC0594-37-73 16:35:00 Test Item Value Reference Range Interpretation Comments MPV (test code = MPV) 7.7 7.4-10.4 [facility] CenterAjjkhzyPXOWDWPWTH4152-95-82 16:35:00 Test Item Value Reference Range Interpretation Comments Platelet (test code = Platelet) 210 133-450 [facility] CenterMmjrtbtCIMAKMMYXT6530-34-10 16:35:00 Test Item Value Reference Range Interpretation Comments RDW (test code = RDW) 13.1 11.5-14.5 [place] 47209017-11-02 16:35:00 Test Item Value Reference Range Interpretation Comments Grp A Strep Scr (test Negative (08/27/17 11:35 code = Grp A Strep AM) Scr) [facility] [id number] 16:35:00 Test Item Value Reference Range Interpretation Comments Influ A (test code = Negative (08/27/17 11:35 Influ A) AM) [facility] [id number] 16:35:00 Test Item Value Reference Range Interpretation Comments Influ B (test code = Negative (08/27/17 11:35 Influ B) AM) [facility]2017-11-02 16:35:00 Test Item Value Reference Range Interpretation Comments B/C Ratio (test code = B/C Ratio) 8 6-25 [facility]2017-11-02 16:35:00 Test Item Value Reference Range Interpretation Comments Globulin (test code = Globulin) 3.6 2.7-4.2 [facility]2017-11-02 16:35:00 Test Item Value Reference Range Interpretation Comments A/G Ratio (test code = A/G Ratio) 1.1 0.7-1.6 [facility]2017-11-02 16:35:00 Test Item Value Reference Range Interpretation Comments AGAP (test code = AGAP) 7.0 10.0-20.0 [facility]2017-11-02 16:35:00 Test Item Value Reference Range Interpretation Comments eGFR (test code = eGFR) 117 [facility]2017-11-02 16:35:00 Test Item Value Reference Range Interpretation Comments Potassium Lvl (test code = Potassium 4.0 3.5-5.1 Lvl) [facility]2017-11-02 16:35:00 Test Item Value Reference Range Interpretation Comments Sodium Lvl (test code = Sodium Lvl) 140 135-145 [facility]2017-11-02 16:35:00 Test Item Value Reference Range Interpretation Comments Chloride Lvl (test code = Chloride Lvl) 105 95-109 [facility]2017-11-02 16:35:00 Test Item Value Reference Range Interpretation Comments ASPARTATE TRANSAMINASE 29 See_Comment [Aut omated message] (test code = ASPARTATE The s ystem which TRANSAMINASE) generated this result transmitted ref erence range: <=37. Th e reference range was not used to interpr et this result as normal/abnormal . [facility]2017-11-02 16:35:00 Test Item Value Reference Range Interpretation Comments ALANINE AMINOTRANSFERASE 49 See_Comment [A utomated message] (test code = ALANINE The sys tem which AMINOTRANSFERASE) generated this result transmitted ref erence range: <=65. Th e reference range was not used to int erpret this result as normal/abnormal . [facility]2017-11-02 16:35:00 Test Item Value Reference Range Interpretation Comments Albumin Lvl (test code = Albumin Lvl) 4.0 3.5-5.0 [facility]2017-11-02 16:35:00 Test Item Value Reference Range Interpretation Comments B/C Ratio (test code = B/C Ratio) 8 6-25 [facility]2017-11-02 16:35:00 Test Item Value Reference Range Interpretation Comments Globulin (test code = Globulin) 3.6 2.7-4.2 [facility]2017-11-02 16:35:00 Test Item Value Reference Range Interpretation Comments A/G Ratio (test code = A/G Ratio) 1.1 0.7-1.6 [facility]2017-11-02 16:35:00 Test Item Value Reference Range Interpretation Comments AGAP (test code = AGAP) 7.0 10.0-20.0 [facility]2017-11-02 16:35:00 Test Item Value Reference Range Interpretation Comments eGFR (test code = eGFR) 117 [facility]2017-11-02 16:35:00 Test Item Value Reference Range Interpretation Comments Potassium Lvl (test code = Potassium 4.0 3.5-5.1 Lvl) [facility]2017-11-02 16:35:00 Test Item Value Reference Range Interpretation Comments Alk Phos (test code = Alk Phos) 54 39-136 [facility]2017-11-02 16:35:00 Test Item Value Reference Range Interpretation Comments Sodium Lvl (test code = Sodium Lvl) 140 135-145 [facility]2017-11-02 16:35:00 Test Item Value Reference Range Interpretation Comments Chloride Lvl (test code = Chloride Lvl) 105 95-109 [facility]2017-11-02 16:35:00 Test Item Value Reference Range Interpretation Comments ASPARTATE TRANSAMINASE 29 See_Comment [Aut omated message] (test code = ASPARTATE The s ystem which TRANSAMINASE) generated this result transmitted ref erence range: <=37. Th e reference range was not used to interpr et this result as normal/abnormal . [facility]2017-11-02 16:35:00 Test Item Value Reference Range Interpretation Comments ALANINE AMINOTRANSFERASE 49 See_Comment [A utomated message] (test code = ALANINE The sys tem which AMINOTRANSFERASE) generated this result transmitted ref erence range: <=65. Th e reference range was not used to int erpret this result as normal/abnormal . [facility]2017-11-02 16:35:00 Test Item Value Reference Range Interpretation Comments Albumin Lvl (test code = Albumin Lvl) 4.0 3.5-5.0 [facility]2017-11-02 16:35:00 Test Item Value Reference Range Interpretation Comments Alk Phos (test code = Alk Phos) 54 39-136 [facility]2017-11-02 16:35:00 Test Item Value Reference Range Interpretation Comments Bili Total (test code = Bili Total) 0.2 0.2-1.3 [facility]2017-11-02 16:35:00 Test Item Value Reference Range Interpretation Comments Total Protein (test code = Total 7.6 6.4-8.4 Protein) [facility]2017-11-02 16:35:00 Test Item Value Reference Range Interpretation Comments Calcium Lvl (test code = Calcium Lvl) 8.6 8.5-10.5 [facility]2017-11-02 16:35:00 Test Item Value Reference Range Interpretation Comments CO2 (test code = CO2) 32 24-32 [facility]2017-11-02 16:35:00 Test Item Value Reference Range Interpretation Comments Bili Total (test code = Bili Total) 0.2 0.2-1.3 [facility]2017-11-02 16:35:00 Test Item Value Reference Range Interpretation Comments Glucose Lvl (test code = Glucose Lvl) 101 70-99 [facility]2017-11-02 16:35:00 Test Item Value Reference Range Interpretation Comments Creatinine Lvl (test code = Creatinine 0.87 0.50-1.40 Lvl) [facility]2017-11-02 16:35:00 Test Item Value Reference Range Interpretation Comments BUN (test code = BUN) 7 7-22 [facility]2017-11-02 16:35:00 Test Item Value Reference Range Interpretation Comments Lipase Lvl (test code = Lipase Lvl) [address] [facility] CenterUekczdqRPKGYNTOVK4089-02-72 16:35:00 Test Item Value Reference Range Interpretation Comments Basophils # (test code 0.1 See_Comment [Aut omated message] The = Basophils #) system which generated this result tra nsmitted reference range : <=0.2. The reference r tc was not used to int erpret this result as normal/abnormal . [facility] CenterDporkndZYPVUMZKXK8972-47-67 16:35:00 Test Item Value Reference Range Interpretation Comments Lymphocytes # (test code = Lymphocytes 1.6 1.0-5.5 #) [facility] CenterXmapxbkBHKDRJCXLN3645-46-84 16:35:00 Test Item Value Reference Range Interpretation Comments Segs-Bands # (test code = Segs-Bands #) 3.1 1.5-8.1 [facility] CenterEgwaqsfZZLOTPYMCG0784-31-71 16:35:00 Test Item Value Reference Range Interpretation Comments Monocytes # (test code 0.4 See_Comment [Aut omated message] The = Monocytes #) system which generated this result tra nsmitted reference range : <=0.8. The reference r tc was not used to int erpret this result as normal/abnormal . [facility] CenterQpzouudVLVWLRFBGR0252-52-40 16:35:00 Test Item Value Reference Range Interpretation Comments Segs (test code = Segs) 58.5 45.0-75.0 [facility] CenterHvbyhzeEJSJBPXBSK3229-08-23 16:35:00 Test Item Value Reference Range Interpretation Comments Lymphocytes (test code = Lymphocytes) 31.4 20.0-40.0 [facility]2017-11-02 16:35:00 Test Item Value Reference Range Interpretation Comments Total Protein (test code = Total 7.6 6.4-8.4 Protein) [facility] CenterNncdxsdVOOLXHOHZD3151-73-99 16:35:00 Test Item Value Reference Range Interpretation Comments Eosinophils (test code = 0.9 See_Comment [A utomated message] The Eosinophils) system which ge nerated this result tra nsmitted reference range : <=4.0. The reference r tc was not used to int erpret this result as normal/abnormal . [facility] CenterOlzpvbmCHGYKFIMJO5172-73-19 16:35:00 Test Item Value Reference Range Interpretation Comments Basophils (test code = 1.7 See_Comment [Aut omated message] The Basophils) system which ge nerated this result tra nsmitted reference range : <=1.0. The reference r tc was not used to int erpret this result as normal/abnormal . [facility] CenterMalypnvQOVJRJGKRK1443-58-69 16:35:00 Test Item Value Reference Range Interpretation Comments Monocytes (test code = Monocytes) 7.5 2.0-12.0 [facility] CenterRfesoypYSOMPKWPEA3147-42-72 16:35:00 Test Item Value Reference Range Interpretation Comments MCHC (test code = MCHC) 34.0 32.0-36.0 [facility] CenterVbldookGPSOFJASOZ1568-16-41 16:35:00 Test Item Value Reference Range Interpretation Comments MCH (test code = MCH) 31.2 pg 27.0-31.0 [facility] CenterPvqxzbzCPXMLOEWKT1046-23-51 16:35:00 Test Item Value Reference Range Interpretation Comments Hct (test code = Hct) 44.9 42.0-54.0 [facility] CenterOkiwnucWNZFTUJKIL6030-95-86 16:35:00 Test Item Value Reference Range Interpretation Comments MCV (test code = MCV) 91.8 80.0-94.0 [facility] CenterHinlkiuPHPMMCARDB9703-87-89 16:35:00 Test Item Value Reference Range Interpretation Comments WBC X 10x3 (test code = WBC X 10x3) 5.2 3.7-10.4 [facility]kinJuvcpihPNRUKSLRFI0463-55-68 16:35:00 Test Item Value Reference Range Interpretation Comments Hgb (test code = Hgb) 15.3 14.0-18.0 [facility] CenterPwcztutJHFEVMAAIM0936-57-91 16:35:00 Test Item Value Reference Range Interpretation Comments RBC X 10x6 (test code = RBC X 10x6) 4.89 4.70-6.10 [facility]kinCHEM RNSPM5901-13-26 16:35:00 Test Item Value Reference Range Interpretation Comments Calcium Lvl (test code = Calcium Lvl) 8.6 8.5-10.5 [facility] CenterWbfxrukRWMYYWJNEU9172-26-82 16:35:00 Test Item Value Reference Range Interpretation Comments MPV (test code = MPV) 7.7 7.4-10.4 [facility] CenterMbhccmsXEUWGINEUJ7097-35-36 16:35:00 Test Item Value Reference Range Interpretation Comments Platelet (test code = Platelet) 210 133-450 [facility] Cent[id number] 16:35:00 Test Item Value Reference Range Interpretation Comments RDW (test code = RDW) 13.1 11.5-14.5 [place] [id number] 16:35:00 Test Item Value Reference Range Interpretation Comments Grp A Strep Scr (test Negative (08/27/17 11:35 code = Grp A Strep AM) Scr) [facility] [id number] 16:35:00 Test Item Value Reference Range Interpretation Comments Influ A (test code = Negative (08/27/17 11:35 Influ A) AM) [facility] [id number] 16:35:00 Test Item Value Reference Range Interpretation Comments Influ B (test code = Negative (08/27/17 11:35 Influ B) AM) [facility]2017-11-02 16:35:00 Test Item Value Reference Range Interpretation Comments CO2 (test code = CO2) 32 24-32 [facility]2017-11-02 16:35:00 Test Item Value Reference Range Interpretation Comments Glucose Lvl (test code = Glucose Lvl) 101 70-99 [facility]2017-11-02 16:35:00 Test Item Value Reference Range Interpretation Comments Creatinine Lvl (test code = Creatinine 0.87 0.50-1.40 Lvl) [facility]2017-11-02 16:35:00 Test Item Value Reference Range Interpretation Comments BUN (test code = BUN) 7 7-22 [facility]2017-11-02 16:35:00 Test Item Value Reference Range Interpretation Comments Lipase Lvl (test code = Lipase Lvl) 127 73-393 [facility] CenterBghpfkxMTVWIJEOJW6675-06-66 16:35:00 Test Item Value Reference Range Interpretation Comments Basophils # (test code 0.1 See_Comment [Aut omated message] The = Basophils #) system which generated this result tra nsmitted reference range : <=0.2. The reference r tc was not used to int erpret this result as normal/abnormal . [facility] CenterLpymrowKZVXVUHWVL9014-75-57 16:35:00 Test Item Value Reference Range Interpretation Comments Lymphocytes # (test code = Lymphocytes 1.6 1.0-5.5 #) [facility] CenterKbpvzhrJXRRZMGGIJ5071-16-80 16:35:00 Test Item Value Reference Range Interpretation Comments Segs-Bands # (test code = Segs-Bands #) 3.1 1.5-8.1 [facility] CenterNipaexoAQXCKMYKWO1224-71-28 16:35:00 Test Item Value Reference Range Interpretation Comments Monocytes # (test code 0.4 See_Comment [Aut omated message] The = Monocytes #) system which generated this result tra nsmitted reference range : <=0.8. The reference r tc was not used to int erpret this result as normal/abnormal . [facility] CenterFpnwlwyMNSHJBBQKV4387-44-22 16:35:00 Test Item Value Reference Range Interpretation Comments Segs (test code = Segs) 58.5 45.0-75.0 [facility] CenterSbqgglqYDNBXUXMAU8768-40-17 16:35:00 Test Item Value Reference Range Interpretation Comments Lymphocytes (test code = Lymphocytes) 31.4 20.0-40.0 [facility] CenterSolaxhfEWPKBBIOTA2128-75-22 16:35:00 Test Item Value Reference Range Interpretation Comments Eosinophils (test code = 0.9 See_Comment [A utomated message] The Eosinophils) system which ge nerated this result tra nsmitted reference range : <=4.0. The reference r tc was not used to int erpret this result as normal/abnormal . [facility]2017-11-02 16:35:00 Test Item Value Reference Range Interpretation Comments B/C Ratio (test code = B/C Ratio) 8 6-25 [facility]2017-11-02 16:35:00 Test Item Value Reference Range Interpretation Comments Globulin (test code = Globulin) 3.6 2.7-4.2 [place] [id number] 16:35:00 Test Item Value Reference Range Interpretation Comments A/G Ratio (test code = A/G Ratio) 1.1 0.7-1.6 [facility]2017-11-02 16:35:00 Test Item Value Reference Range Interpretation Comments AGAP (test code = AGAP) 7.0 10.0-20.0 [facility]2017-11-02 16:35:00 Test Item Value Reference Range Interpretation Comments eGFR (test code = eGFR) 117 [facility]2017-11-02 16:35:00 Test Item Value Reference Range Interpretation Comments Potassium Lvl (test code = Potassium 4.0 3.5-5.1 Lvl) [facility]2017-11-02 16:35:00 Test Item Value Reference Range Interpretation Comments Sodium Lvl (test code = Sodium Lvl) 140 135-145 [facility]2017-11-02 16:35:00 Test Item Value Reference Range Interpretation Comments Chloride Lvl (test code = Chloride Lvl) 105 95-109 [facility]2017-11-02 16:35:00 Test Item Value Reference Range Interpretation Comments ASPARTATE TRANSAMINASE 29 See_Comment [Aut omated message] (test code = ASPARTATE The s ystem which TRANSAMINASE) generated this result transmitted ref erence range: <=37. Th e reference range was not used to interpr et this result as normal/abnormal . [facility] CenterZ[id number] 16:35:00 Test Item Value Reference Range Interpretation Comments Basophils (test code = 1.7 See_Comment [Aut omated message] The Basophils) system which ge nerated this result tra nsmitted reference range : <=1.0. The reference r tc was not used to int erpret this result as normal/abnormal . [facility]2017-11-02 16:35:00 Test Item Value Reference Range Interpretation Comments ALANINE AMINOTRANSFERASE 49 See_Comment [A utomated message] (test code = ALANINE The sys tem which AMINOTRANSFERASE) generated this result transmitted ref erence range: <=65. Th e reference range was not used to int erpret this result as normal/abnormal . [facility]2017-11-02 16:35:00 Test Item Value Reference Range Interpretation Comments Albumin Lvl (test code = Albumin Lvl) 4.0 3.5-5.0 [facility]2017-11-02 16:35:00 Test Item Value Reference Range Interpretation Comments Alk Phos (test code = Alk Phos) 54 39-136 [facility]2017-11-02 16:35:00 Test Item Value Reference Range Interpretation Comments Bili Total (test code = Bili Total) 0.2 0.2-1.3 [facility]2017-11-02 16:35:00 Test Item Value Reference Range Interpretation Comments Total Protein (test code = Total 7.6 6.4-8.4 Protein) [facility]2017-11-02 16:35:00 Test Item Value Reference Range Interpretation Comments Calcium Lvl (test code = Calcium Lvl) 8.6 8.5-10.5 [place] [address]-11-02 16:35:00 Test Item Value Reference Range Interpretation Comments CO2 (test code = CO2) 32 24-32 [facility]2017-11-02 16:35:00 Test Item Value Reference Range Interpretation Comments Glucose Lvl (test code = Glucose Lvl) 101 70-99 [facility]2017-11-02 16:35:00 Test Item Value Reference Range Interpretation Comments Creatinine Lvl (test code = Creatinine 0.87 0.50-1.40 Lvl) [facility]2017-11-02 16:35:00 Test Item Value Reference Range Interpretation Comments BUN (test code = BUN) 7 7-22 [facility] CenterEosrjbaQGEIGGFPTW0411-62-86 16:35:00 Test Item Value Reference Range Interpretation Comments Monocytes (test code = Monocytes) 7.5 2.0-12.0 [facility]2017-11-02 16:35:00 Test Item Value Reference Range Interpretation Comments Lipase Lvl (test code = Lipase Lvl) 127 73-393 [facility] CenterUorrvdoYGWXDWBWKQ6603-88-01 16:35:00 Test Item Value Reference Range Interpretation Comments Basophils # (test code 0.1 See_Comment [Aut omated message] The = Basophils #) system which generated this result tra nsmitted reference range : <=0.2. The reference r tc was not used to int erpret this result as normal/abnormal . [facility] CenterLvqcygwZQCXTURUDK7632-18-87 16:35:00 Test Item Value Reference Range Interpretation Comments Lymphocytes # (test code = Lymphocytes 1.6 1.0-5.5 #) [facility] CenterUuiifsgOVNRSYTITJ2155-31-38 16:35:00 Test Item Value Reference Range Interpretation Comments Segs-Bands # (test code = Segs-Bands #) 3.1 1.5-8.1 [facility] CenterMdcvzytOJNYPBDPYZ4153-92-26 16:35:00 Test Item Value Reference Range Interpretation Comments Monocytes # (test code 0.4 See_Comment [Aut omated message] The = Monocytes #) system which generated this result tra nsmitted reference range : <=0.8. The reference r tc was not used to int erpret this result as normal/abnormal . [facility] CenterEmqieraREBOMHQLUE9394-71-22 16:35:00 Test Item Value Reference Range Interpretation Comments Segs (test code = Segs) 58.5 45.0-75.0 [facility] CenterLyakvtgPLZMBTUWAA3522-78-09 16:35:00 Test Item Value Reference Range Interpretation Comments Lymphocytes (test code = Lymphocytes) 31.4 20.0-40.0 [facility] CenterIwqdqipVASLSMCENT3693-81-76 16:35:00 Test Item Value Reference Range Interpretation Comments Eosinophils (test code = 0.9 See_Comment [A utomated message] The Eosinophils) system which ge nerated this result tra nsmitted reference range : <=4.0. The reference r tc was not used to int erpret this result as normal/abnormal . [facility] CenterIylphdfEAGDAPOJAM3431-95-12 16:35:00 Test Item Value Reference Range Interpretation Comments Basophils (test code = 1.7 See_Comment [Aut omated message] The Basophils) system which ge nerated this result tra nsmitted reference range : <=1.0. The reference r tc was not used to int erpret this result as normal/abnormal . [facility] CenterTfhjkxiJPEEWDZIXA2454-05-19 16:35:00 Test Item Value Reference Range Interpretation Comments Monocytes (test code = Monocytes) 7.5 2.0-12.0 [facility] CenterMkuqvriAWIZCTROXR8914-24-90 16:35:00 Test Item Value Reference Range Interpretation Comments MCHC (test code = MCHC) 34.0 32.0-36.0 [facility] CenterDrjsdlmLURRKZWYIC9092-44-21 16:35:00 Test Item Value Reference Range Interpretation Comments MCHC (test code = MCHC) 34.0 32.0-36.0 [facility] CenterSunnyzzDBOYGVQARJ8424-44-76 16:35:00 Test Item Value Reference Range Interpretation Comments MCH (test code = MCH) 31.2 pg 27.0-31.0 [facility] CenterJdwgricIURSPBWSAL7395-22-32 16:35:00 Test Item Value Reference Range Interpretation Comments Hct (test code = Hct) 44.9 42.0-54.0 [facility] CenterXbshhxeGOYSGSYPNU9261-35-09 16:35:00 Test Item Value Reference Range Interpretation Comments MCV (test code = MCV) 91.8 80.0-94.0 [facility] CenterIifsyclIOBBPLOKHD3125-05-77 16:35:00 Test Item Value Reference Range Interpretation Comments WBC X 10x3 (test code = WBC X 10x3) 5.2 3.7-10.4 [facility] CenterBsywxjtVGRBMQHLOM7834-13-80 16:35:00 Test Item Value Reference Range Interpretation Comments Hgb (test code = Hgb) 15.3 14.0-18.0 [facility] CenterSzgtmkbLTIQUPPDAU3273-41-98 16:35:00 Test Item Value Reference Range Interpretation Comments RBC X 10x6 (test code = RBC X 10x6) 4.89 4.70-6.10 [facility] CenterMxhfkduDWWENSGOWD1874-49-70 16:35:00 Test Item Value Reference Range Interpretation Comments MPV (test code = MPV) 7.7 7.4-10.4 [facility] CenterMlvqiqlAHNKQUGRFW5273-54-29 16:35:00 Test Item Value Reference Range Interpretation Comments Platelet (test code = Platelet) 210 133-450 [facility] CenterYlagokvZVMKZRMDRZ1827-86-39 16:35:00 Test Item Value Reference Range Interpretation Comments RDW (test code = RDW) 13.1 11.5-14.5 [facility] CenterQfgjgapPEHRGTMYLF6070-67-89 16:35:00 Test Item Value Reference Range Interpretation Comments MCH (test code = MCH) 31.2 pg 27.0-31.0 [place] [id number] 16:35:00 Test Item Value Reference Range Interpretation Comments Grp A Strep Scr (test Negative (08/27/17 11:35 code = Grp A Strep AM) Scr) [facility] SWPWZZLZ0500-20-21 16:35:00 Test Item Value Reference Range Interpretation Comments Influ A (test code = Negative (08/27/17 11:35 Influ A) AM) [facility] [id number] 16:35:00 Test Item Value Reference Range Interpretation Comments Influ B (test code = Negative (08/27/17 11:35 Influ B) AM) [facility] CenterBavaidcBCJEWWXRZL2846-18-21 16:35:00 Test Item Value Reference Range Interpretation Comments Hct (test code = Hct) 44.9 42.0-54.0 [facility] CenterQgcssoyXGFEZHKJKG6080-45-39 16:35:00 Test Item Value Reference Range Interpretation Comments MCV (test code = MCV) 91.8 80.0-94.0 [facility] CenterVgijdzkUUCBRHOWBK8930-56-94 16:35:00 Test Item Value Reference Range Interpretation Comments WBC X 10x3 (test code = WBC X 10x3) 5.2 3.7-10.4 [facility] CenterAdlutnsBEMFQVKHAC2289-92-94 16:35:00 Test Item Value Reference Range Interpretation Comments Hgb (test code = Hgb) 15.3 14.0-18.0 [facility] CenterMjcekbpTOPCSVZYPG9392-80-30 16:35:00 Test Item Value Reference Range Interpretation Comments RBC X 10x6 (test code = RBC X 10x6) 4.89 4.70-6.10 [facility] CenterFzsivloXFSUFWGXZI7932-29-99 16:35:00 Test Item Value Reference Range Interpretation Comments MPV (test code = MPV) 7.7 7.4-10.4 [facility] CenterCoxndzzVRHDXVBWOX9501-01-18 16:35:00 Test Item Value Reference Range Interpretation Comments Platelet (test code = Platelet) 210 133-450 [facility] CenterJuzswgfNPXVZYBAHH4416-59-63 16:35:00 Test Item Value Reference Range Interpretation Comments RDW (test code = RDW) 13.1 11.5-14.5 [place] 47209017-11-02 16:35:00 Test Item Value Reference Range Interpretation Comments Grp A Strep Scr (test Negative (08/27/17 11:35 code = Grp A Strep AM) Scr) [facility] - [id number] 16:35:00 Test Item Value Reference Range Interpretation Comments Influ A (test code = Negative (08/27/17 11:35 Influ A) AM) [facility] - [id number] 16:35:00 Test Item Value Reference Range Interpretation Comments Influ B (test code = Negative (08/27/17 11:35 Influ B) AM) [facility] [id number] 16:35:00 Test Item Value Reference Range Interpretation Comments B/C Ratio (test code = B/C Ratio) 8 6-25 [facility] [id number] 16:35:00 Test Item Value Reference Range Interpretation Comments Globulin (test code = Globulin) 3.6 2.7-4.2 [facility]2017-11-02 16:35:00 Test Item Value Reference Range Interpretation Comments A/G Ratio (test code = A/G Ratio) 1.1 0.7-1.6 [facility]2017-11-02 16:35:00 Test Item Value Reference Range Interpretation Comments AGAP (test code = AGAP) 7.0 10.0-20.0 [facility]2017-11-02 16:35:00 Test Item Value Reference Range Interpretation Comments eGFR (test code = eGFR) 117 [facility]2017-11-02 16:35:00 Test Item Value Reference Range Interpretation Comments Potassium Lvl (test code = Potassium 4.0 3.5-5.1 Lvl) [facility]2017-11-02 16:35:00 Test Item Value Reference Range Interpretation Comments Sodium Lvl (test code = Sodium Lvl) 140 135-145 [facility]2017-11-02 16:35:00 Test Item Value Reference Range Interpretation Comments Chloride Lvl (test code = Chloride Lvl) 105 95-109 [facility]2017-11-02 16:35:00 Test Item Value Reference Range Interpretation Comments ASPARTATE TRANSAMINASE 29 See_Comment [Aut omated message] (test code = ASPARTATE The s ystem which TRANSAMINASE) generated this result transmitted ref erence range: <=37. Th e reference range was not used to interpr et this result as normal/abnormal . [facility]2017-11-02 16:35:00 Test Item Value Reference Range Interpretation Comments ALANINE AMINOTRANSFERASE 49 See_Comment [A utomated message] (test code = ALANINE The sys tem which AMINOTRANSFERASE) generated this result transmitted ref erence range: <=65. Th e reference range was not used to int erpret this result as normal/abnormal . [facility]2017-11-02 16:35:00 Test Item Value Reference Range Interpretation Comments Albumin Lvl (test code = Albumin Lvl) 4.0 3.5-5.0 [facility]2017-11-02 16:35:00 Test Item Value Reference Range Interpretation Comments Alk Phos (test code = Alk Phos) 54 39-136 [facility]2017-11-02 16:35:00 Test Item Value Reference Range Interpretation Comments Bili Total (test code = Bili Total) 0.2 0.2-1.3 [facility]2017-11-02 16:35:00 Test Item Value Reference Range Interpretation Comments Total Protein (test code = Total 7.6 6.4-8.4 Protein) [facility]2017-11-02 16:35:00 Test Item Value Reference Range Interpretation Comments Calcium Lvl (test code = Calcium Lvl) 8.6 8.5-10.5 [place] [address]-11-02 16:35:00 Test Item Value Reference Range Interpretation Comments CO2 (test code = CO2) 32 24-32 [facility]2017-11-02 16:35:00 Test Item Value Reference Range Interpretation Comments Glucose Lvl (test code = Glucose Lvl) 101 70-99 [facility]2017-11-02 16:35:00 Test Item Value Reference Range Interpretation Comments Creatinine Lvl (test code = Creatinine 0.87 0.50-1.40 Lvl) [facility]2017-11-02 16:35:00 Test Item Value Reference Range Interpretation Comments BUN (test code = BUN) 7 7-22 [facility]2017-11-02 16:35:00 Test Item Value Reference Range Interpretation Comments Lipase Lvl (test code = Lipase Lvl) 127 73-393 [facility] CenterTqwbuaoPFZFRHQUWL4188-75-77 16:35:00 Test Item Value Reference Range Interpretation Comments Basophils # (test code 0.1 See_Comment [Aut omated message] The = Basophils #) system which generated this result tra nsmitted reference range : <=0.2. The reference r tc was not used to int erpret this result as normal/abnormal . [facility] CenterBvrolgmOHQPMHIOTU4144-01-16 16:35:00 Test Item Value Reference Range Interpretation Comments Lymphocytes # (test code = Lymphocytes 1.6 1.0-5.5 #) [facility] CenterIlmsxaeHIWBQCKSDK7587-03-09 16:35:00 Test Item Value Reference Range Interpretation Comments Segs-Bands # (test code = Segs-Bands #) 3.1 1.5-8.1 [facility] CenterQwpmihlYHSVZLFNMY7300-63-61 16:35:00 Test Item Value Reference Range Interpretation Comments Monocytes # (test code 0.4 See_Comment [Aut omated message] The = Monocytes #) system which generated this result tra nsmitted reference range : <=0.8. The reference r tc was not used to int erpret this result as normal/abnormal . [facility] CenterJwzhbwrVPLXSVSRNS3527-93-55 16:35:00 Test Item Value Reference Range Interpretation Comments Segs (test code = Segs) 58.5 45.0-75.0 [facility] CenterHxbxnsrKMVUYANFLS0553-86-94 16:35:00 Test Item Value Reference Range Interpretation Comments Lymphocytes (test code = Lymphocytes) 31.4 20.0-40.0 [facility] CenterFlhjjzwIMYQHXNPTI6105-03-17 16:35:00 Test Item Value Reference Range Interpretation Comments Eosinophils (test code = 0.9 See_Comment [A utomated message] The Eosinophils) system which ge nerated this result tra nsmitted reference range : <=4.0. The reference r tc was not used to int erpret this result as normal/abnormal . [facility] CenterRtfniamYRZXBYRIXN3917-10-96 16:35:00 Test Item Value Reference Range Interpretation Comments Basophils (test code = 1.7 See_Comment [Aut omated message] The Basophils) system which ge nerated this result tra nsmitted reference range : <=1.0. The reference r tc was not used to int erpret this result as normal/abnormal . [facility] CenterUevhfuiITLEWJMSEP2543-99-65 16:35:00 Test Item Value Reference Range Interpretation Comments Monocytes (test code = Monocytes) 7.5 2.0-12.0 [facility] CenterVfqbquiRUPMDLYILN9589-78-29 16:35:00 Test Item Value Reference Range Interpretation Comments MCHC (test code = MCHC) 34.0 32.0-36.0 [facility] CenterBuhpiokMYPDFPJYWX5845-28-56 16:35:00 Test Item Value Reference Range Interpretation Comments MCH (test code = MCH) 31.2 pg 27.0-31.0 [facility] CenterGgqsiqlRWMMHHTIIV0080-97-63 16:35:00 Test Item Value Reference Range Interpretation Comments Hct (test code = Hct) 44.9 42.0-54.0 [facility] CenterNodkuvaZVTIVUBVYK8641-40-45 16:35:00 Test Item Value Reference Range Interpretation Comments MCV (test code = MCV) 91.8 80.0-94.0 [facility] CenterUhutylySCTSDZOAKC7694-61-49 16:35:00 Test Item Value Reference Range Interpretation Comments WBC X 10x3 (test code = WBC X 10x3) 5.2 3.7-10.4 [facility] CenterRlbdpkhJEVWUSSBQR6602-39-50 16:35:00 Test Item Value Reference Range Interpretation Comments Hgb (test code = Hgb) 15.3 14.0-18.0 [facility] CenterOlkxhnjTPQWWTTWMM2781-98-01 16:35:00 Test Item Value Reference Range Interpretation Comments RBC X 10x6 (test code = RBC X 10x6) 4.89 4.70-6.10 [facility] CenterOhidjatAHHUZDIDGP4140-26-19 16:35:00 Test Item Value Reference Range Interpretation Comments MPV (test code = MPV) 7.7 7.4-10.4 [facility] CenterYwzcdnpZOWUUYIWBT0835-21-76 16:35:00 Test Item Value Reference Range Interpretation Comments Platelet (test code = Platelet) 210 133-450 [facility] CenterFvcflsdNDGMKONMIR8316-94-78 16:35:00 Test Item Value Reference Range Interpretation Comments RDW (test code = RDW) 13.1 11.5-14.5 [place] [id number] 16:35:00 Test Item Value Reference Range Interpretation Comments Grp A Strep Scr (test Negative (08/27/17 11:35 code = Grp A Strep AM) Scr) [facility] [id number] 16:35:00 Test Item Value Reference Range Interpretation Comments Influ A (test code = Negative (08/27/17 11:35 Influ A) AM) [facility] - QYPGPMMY2167-31-73 16:35:00 Test Item Value Reference Range Interpretation Comments Influ B (test code = Negative (08/27/17 11:35 Influ B) AM) [facility]2017-11-02 16:35:00 Test Item Value Reference Range Interpretation Comments B/C Ratio (test code = B/C Ratio) 8 6-25 [facility]2017-11-02 16:35:00 Test Item Value Reference Range Interpretation Comments Globulin (test code = Globulin) 3.6 2.7-4.2 [facility]2017-11-02 16:35:00 Test Item Value Reference Range Interpretation Comments A/G Ratio (test code = A/G Ratio) 1.1 0.7-1.6 [facility]2017-11-02 16:35:00 Test Item Value Reference Range Interpretation Comments AGAP (test code = AGAP) 7.0 10.0-20.0 [facility]2017-11-02 16:35:00 Test Item Value Reference Range Interpretation Comments eGFR (test code = eGFR) 117 [facility]2017-11-02 16:35:00 Test Item Value Reference Range Interpretation Comments Potassium Lvl (test code = Potassium 4.0 3.5-5.1 Lvl) [facility]2017-11-02 16:35:00 Test Item Value Reference Range Interpretation Comments Sodium Lvl (test code = Sodium Lvl) 140 135-145 [facility]2017-11-02 16:35:00 Test Item Value Reference Range Interpretation Comments Chloride Lvl (test code = Chloride Lvl) 105 95-109 [facility]2017-11-02 16:35:00 Test Item Value Reference Range Interpretation Comments ASPARTATE TRANSAMINASE 29 See_Comment [Aut omated message] (test code = ASPARTATE The s ystem which TRANSAMINASE) generated this result transmitted ref erence range: <=37. Th e reference range was not used to interpr et this result as normal/abnormal . [facility]2017-11-02 16:35:00 Test Item Value Reference Range Interpretation Comments ALANINE AMINOTRANSFERASE 49 See_Comment [A utomated message] (test code = ALANINE The sys tem which AMINOTRANSFERASE) generated this result transmitted ref erence range: <=65. Th e reference range was not used to int erpret this result as normal/abnormal . [facility]2017-11-02 16:35:00 Test Item Value Reference Range Interpretation Comments Albumin Lvl (test code = Albumin Lvl) 4.0 3.5-5.0 [facility]2017-11-02 16:35:00 Test Item Value Reference Range Interpretation Comments Alk Phos (test code = Alk Phos) 54 39-136 [facility]2017-11-02 16:35:00 Test Item Value Reference Range Interpretation Comments Bili Total (test code = Bili Total) 0.2 0.2-1.3 [facility]2017-11-02 16:35:00 Test Item Value Reference Range Interpretation Comments Total Protein (test code = Total 7.6 6.4-8.4 Protein) [facility]2017-11-02 16:35:00 Test Item Value Reference Range Interpretation Comments Calcium Lvl (test code = Calcium Lvl) 8.6 8.5-10.5 [facility]2017-11-02 16:35:00 Test Item Value Reference Range Interpretation Comments CO2 (test code = CO2) 32 24-32 [facility]2017-11-02 16:35:00 Test Item Value Reference Range Interpretation Comments Glucose Lvl (test code = Glucose Lvl) 101 70-99 [facility]2017-11-02 16:35:00 Test Item Value Reference Range Interpretation Comments Creatinine Lvl (test code = Creatinine 0.87 0.50-1.40 Lvl) [facility]2017-11-02 16:35:00 Test Item Value Reference Range Interpretation Comments BUN (test code = BUN) 7 7-22 [place] [address]-11-02 16:35:00 Test Item Value Reference Range Interpretation Comments Lipase Lvl (test code = Lipase Lvl) 127 73-393 [facility] CenterHhmqqbqKDAOTZVHFJ6429-99-70 16:35:00 Test Item Value Reference Range Interpretation Comments Basophils # (test code 0.1 See_Comment [Aut omated message] The = Basophils #) system which generated this result tra nsmitted reference range : <=0.2. The reference r tc was not used to int erpret this result as normal/abnormal . [facility] CenterCyancfnNWSOXDKEHU0596-99-05 16:35:00 Test Item Value Reference Range Interpretation Comments Lymphocytes # (test code = Lymphocytes 1.6 1.0-5.5 #) [facility] CenterCzalbwoRGNVQTJKEZ2808-36-33 16:35:00 Test Item Value Reference Range Interpretation Comments Segs-Bands # (test code = Segs-Bands #) 3.1 1.5-8.1 [facility] CenterAnxrqnmUNCBOPVRSK3458-01-32 16:35:00 Test Item Value Reference Range Interpretation Comments Monocytes # (test code 0.4 See_Comment [Aut omated message] The = Monocytes #) system which generated this result tra nsmitted reference range : <=0.8. The reference r tc was not used to int erpret this result as normal/abnormal . [facility] CenterFnlweyuNQQSOGZDCD3461-83-15 16:35:00 Test Item Value Reference Range Interpretation Comments Segs (test code = Segs) 58.5 45.0-75.0 [facility] CenterCfvnliiKMIBVREEPK0007-94-06 16:35:00 Test Item Value Reference Range Interpretation Comments Lymphocytes (test code = Lymphocytes) 31.4 20.0-40.0 [facility] CenterLssolmlGMBKKXFNVN8449-21-26 16:35:00 Test Item Value Reference Range Interpretation Comments Eosinophils (test code = 0.9 See_Comment [A utomated message] The Eosinophils) system which ge nerated this result tra nsmitted reference range : <=4.0. The reference r tc was not used to int erpret this result as normal/abnormal . [facility] CenterKptmhbzIUEMTRKYII3066-64-31 16:35:00 Test Item Value Reference Range Interpretation Comments Basophils (test code = 1.7 See_Comment [Aut omated message] The Basophils) system which ge nerated this result tra nsmitted reference range : <=1.0. The reference r tc was not used to int erpret this result as normal/abnormal . [facility] CenterQrhqdaxFSGLSJXEPV4801-56-49 16:35:00 Test Item Value Reference Range Interpretation Comments Monocytes (test code = Monocytes) 7.5 2.0-12.0 [facility] CenterOsogwfxNFACSFCFZT4251-89-88 16:35:00 Test Item Value Reference Range Interpretation Comments MCHC (test code = MCHC) 34.0 32.0-36.0 [facility] CenterObtcmdtOAMHKVJRBE2058-61-77 16:35:00 Test Item Value Reference Range Interpretation Comments MCH (test code = MCH) 31.2 pg 27.0-31.0 [facility] CenterHxkdnmqTYFCDOFYNV5890-19-64 16:35:00 Test Item Value Reference Range Interpretation Comments Hct (test code = Hct) 44.9 42.0-54.0 [facility] CenterLlusmxeSVHWSQXKRL7346-88-84 16:35:00 Test Item Value Reference Range Interpretation Comments MCV (test code = MCV) 91.8 80.0-94.0 [facility] CenterRagftmiJZWBTTCXTG4304-57-72 16:35:00 Test Item Value Reference Range Interpretation Comments WBC X 10x3 (test code = WBC X 10x3) 5.2 3.7-10.4 [facility] CenterWubmiceJJZJUFXKYD0716-56-23 16:35:00 Test Item Value Reference Range Interpretation Comments Hgb (test code = Hgb) 15.3 14.0-18.0 [facility] CenterXchuuquQQUMPFPJMM8060-34-19 16:35:00 Test Item Value Reference Range Interpretation Comments RBC X 10x6 (test code = RBC X 10x6) 4.89 4.70-6.10 [facility] CenterJhbhmwmIBHPMWGPVA9673-94-42 16:35:00 Test Item Value Reference Range Interpretation Comments MPV (test code = MPV) 7.7 7.4-10.4 [facility] CenterWorioqqDHOLOGKSPP3688-09-57 16:35:00 Test Item Value Reference Range Interpretation Comments Platelet (test code = Platelet) 210 133-450 [facility] CenterUnysqdfVCFTPAWANI0590-10-48 16:35:00 Test Item Value Reference Range Interpretation Comments RDW (test code = RDW) 13.1 11.5-14.5 [place] 47209017-11-02 16:35:00 Test Item Value Reference Range Interpretation Comments Grp A Strep Scr (test Negative (08/27/17 11:35 code = Grp A Strep AM) Scr) [facility] [id number] 16:35:00 Test Item Value Reference Range Interpretation Comments Influ A (test code = Negative (08/27/17 11:35 Influ A) AM) [facility] [id number] 16:35:00 Test Item Value Reference Range Interpretation Comments Influ B (test code = Negative (08/27/17 11:35 Influ B) AM) [facility] [id number] 16:35:00 Test Item Value Reference Range Interpretation Comments B/C Ratio (test code = B/C Ratio) 8 6-25 [facility]2017-11-02 16:35:00 Test Item Value Reference Range Interpretation Comments Globulin (test code = Globulin) 3.6 2.7-4.2 [facility]2017-11-02 16:35:00 Test Item Value Reference Range Interpretation Comments A/G Ratio (test code = A/G Ratio) 1.1 0.7-1.6 [facility]2017-11-02 16:35:00 Test Item Value Reference Range Interpretation Comments AGAP (test code = AGAP) 7.0 10.0-20.0 [facility]2017-11-02 16:35:00 Test Item Value Reference Range Interpretation Comments eGFR (test code = eGFR) 117 [facility]2017-11-02 16:35:00 Test Item Value Reference Range Interpretation Comments Potassium Lvl (test code = Potassium 4.0 3.5-5.1 Lvl) [facility]2017-11-02 16:35:00 Test Item Value Reference Range Interpretation Comments Sodium Lvl (test code = Sodium Lvl) 140 135-145 [facility]2017-11-02 16:35:00 Test Item Value Reference Range Interpretation Comments Chloride Lvl (test code = Chloride Lvl) 105 95-109 [facility]2017-11-02 16:35:00 Test Item Value Reference Range Interpretation Comments ASPARTATE TRANSAMINASE 29 See_Comment [Aut omated message] (test code = ASPARTATE The s ystem which TRANSAMINASE) generated this result transmitted ref erence range: <=37. Th e reference range was not used to interpr et this result as normal/abnormal . [facility]2017-11-02 16:35:00 Test Item Value Reference Range Interpretation Comments ALANINE AMINOTRANSFERASE 49 See_Comment [A utomated message] (test code = ALANINE The sys tem which AMINOTRANSFERASE) generated this result transmitted ref erence range: <=65. Th e reference range was not used to int erpret this result as normal/abnormal . [facility]2017-11-02 16:35:00 Test Item Value Reference Range Interpretation Comments Albumin Lvl (test code = Albumin Lvl) 4.0 3.5-5.0 [facility]2017-11-02 16:35:00 Test Item Value Reference Range Interpretation Comments Alk Phos (test code = Alk Phos) 54 39-136 [facility]2017-11-02 16:35:00 Test Item Value Reference Range Interpretation Comments Bili Total (test code = Bili Total) 0.2 0.2-1.3 [facility]2017-11-02 16:35:00 Test Item Value Reference Range Interpretation Comments Total Protein (test code = Total 7.6 6.4-8.4 Protein) [facility]2017-11-02 16:35:00 Test Item Value Reference Range Interpretation Comments Calcium Lvl (test code = Calcium Lvl) 8.6 8.5-10.5 [place] 660277-11-02 16:35:00 Test Item Value Reference Range Interpretation Comments CO2 (test code = CO2) 32 24-32 [facility]2017-11-02 16:35:00 Test Item Value Reference Range Interpretation Comments Glucose Lvl (test code = Glucose Lvl) 101 70-99 [place] [address]-11-02 16:35:00 Test Item Value Reference Range Interpretation Comments Creatinine Lvl (test code = Creatinine 0.87 0.50-1.40 Lvl) [place] 660277-11-02 16:35:00 Test Item Value Reference Range Interpretation Comments BUN (test code = BUN) 7 7-22 [facility]2017-11-02 16:35:00 Test Item Value Reference Range Interpretation Comments Lipase Lvl (test code = Lipase Lvl) 127 73-393 [facility] CenterIqixyzlIBCDBJLBIO7495-16-98 16:35:00 Test Item Value Reference Range Interpretation Comments Basophils # (test code 0.1 See_Comment [Aut omated message] The = Basophils #) system which generated this result tra nsmitted reference range : <=0.2. The reference r tc was not used to int erpret this result as normal/abnormal . [facility] CenterUbjostjMPJRIYUROC6395-71-60 16:35:00 Test Item Value Reference Range Interpretation Comments Lymphocytes # (test code = Lymphocytes 1.6 1.0-5.5 #) [facility] CenterVmvrlvjYCKLZVMWLS4801-75-32 16:35:00 Test Item Value Reference Range Interpretation Comments Segs-Bands # (test code = Segs-Bands #) 3.1 1.5-8.1 [facility] CenterOeubzjsSPIVPTDVKX5837-68-95 16:35:00 Test Item Value Reference Range Interpretation Comments Monocytes # (test code 0.4 See_Comment [Aut omated message] The = Monocytes #) system which generated this result tra nsmitted reference range : <=0.8. The reference r tc was not used to int erpret this result as normal/abnormal . [facility] CenterAxaxtuzYHWPXJTGXH0996-96-09 16:35:00 Test Item Value Reference Range Interpretation Comments Segs (test code = Segs) 58.5 45.0-75.0 [facility] CenterOlenrbwAJOPHZTXYY1792-00-92 16:35:00 Test Item Value Reference Range Interpretation Comments Lymphocytes (test code = Lymphocytes) 31.4 20.0-40.0 [facility] CenterNuuhkhdYLAREJLWUM9697-70-41 16:35:00 Test Item Value Reference Range Interpretation Comments Eosinophils (test code = 0.9 See_Comment [A utomated message] The Eosinophils) system which ge nerated this result tra nsmitted reference range : <=4.0. The reference r tc was not used to int erpret this result as normal/abnormal . [facility] CenterBvxtftaCCNMFYZAQN9890-31-30 16:35:00 Test Item Value Reference Range Interpretation Comments Basophils (test code = 1.7 See_Comment [Aut omated message] The Basophils) system which ge nerated this result tra nsmitted reference range : <=1.0. The reference r tc was not used to int erpret this result as normal/abnormal . [facility] CenterXwctwcvKOYFJRMWHD2223-59-82 16:35:00 Test Item Value Reference Range Interpretation Comments Monocytes (test code = Monocytes) 7.5 2.0-12.0 [facility] CenterOtdgfsnQTAAULVEQB1602-63-64 16:35:00 Test Item Value Reference Range Interpretation Comments MCHC (test code = MCHC) 34.0 32.0-36.0 [facility] CenterNlikiioNRJQAEWQYU6688-06-77 16:35:00 Test Item Value Reference Range Interpretation Comments MCH (test code = MCH) 31.2 pg 27.0-31.0 [facility] CenterVoegaatJJPZTAFOXL4752-12-72 16:35:00 Test Item Value Reference Range Interpretation Comments Hct (test code = Hct) 44.9 42.0-54.0 [facility] CenterUldgdiyIPRSECAWAN2801-97-08 16:35:00 Test Item Value Reference Range Interpretation Comments MCV (test code = MCV) 91.8 80.0-94.0 [facility] CenterAovlhwpHJSWBHJVIJ2029-12-03 16:35:00 Test Item Value Reference Range Interpretation Comments WBC X 10x3 (test code = WBC X 10x3) 5.2 3.7-10.4 [facility] CenterWxskxbaAKUATABLMI0951-94-90 16:35:00 Test Item Value Reference Range Interpretation Comments Hgb (test code = Hgb) 15.3 14.0-18.0 [facility] CenterMlapekcUMAMDOICQN3359-21-88 16:35:00 Test Item Value Reference Range Interpretation Comments RBC X 10x6 (test code = RBC X 10x6) 4.89 4.70-6.10 [facility] CenterPnjkjlzXHXTRZQKAQ9179-56-01 16:35:00 Test Item Value Reference Range Interpretation Comments MPV (test code = MPV) 7.7 7.4-10.4 [facility] CenterWvrvefbHFCSYBSWDF1679-71-60 16:35:00 Test Item Value Reference Range Interpretation Comments Platelet (test code = Platelet) 210 133-450 [facility] CenterOdshowsYIYEIJBHIN0758-10-96 16:35:00 Test Item Value Reference Range Interpretation Comments RDW (test code = RDW) 13.1 11.5-14.5 [place] 47209017-11-02 16:35:00 Test Item Value Reference Range Interpretation Comments Grp A Strep Scr (test Negative (08/27/17 11:35 code = Grp A Strep AM) Scr) [facility] [id number] 16:35:00 Test Item Value Reference Range Interpretation Comments Influ A (test code = Negative (08/27/17 11:35 Influ A) AM) [facility] [id number] 16:35:00 Test Item Value Reference Range Interpretation Comments Influ B (test code = Negative (08/27/17 11:35 Influ B) AM) [facility] [id number] 16:35:00 Test Item Value Reference Range Interpretation Comments B/C Ratio (test code = B/C Ratio) 8 6-25 [facility] [id number] 16:35:00 Test Item Value Reference Range Interpretation Comments Globulin (test code = Globulin) 3.6 2.7-4.2 [facility]2017-11-02 16:35:00 Test Item Value Reference Range Interpretation Comments A/G Ratio (test code = A/G Ratio) 1.1 0.7-1.6 [facility]2017-11-02 16:35:00 Test Item Value Reference Range Interpretation Comments AGAP (test code = AGAP) 7.0 10.0-20.0 [facility]2017-11-02 16:35:00 Test Item Value Reference Range Interpretation Comments eGFR (test code = eGFR) 117 [facility]2017-11-02 16:35:00 Test Item Value Reference Range Interpretation Comments Potassium Lvl (test code = Potassium 4.0 3.5-5.1 Lvl) [facility]2017-11-02 16:35:00 Test Item Value Reference Range Interpretation Comments Sodium Lvl (test code = Sodium Lvl) 140 135-145 [facility]2017-11-02 16:35:00 Test Item Value Reference Range Interpretation Comments Chloride Lvl (test code = Chloride Lvl) 105 95-109 [facility]2017-11-02 16:35:00 Test Item Value Reference Range Interpretation Comments ASPARTATE TRANSAMINASE 29 See_Comment [Aut omated message] (test code = ASPARTATE The s ystem which TRANSAMINASE) generated this result transmitted ref erence range: <=37. Th e reference range was not used to interpr et this result as normal/abnormal . [facility]2017-11-02 16:35:00 Test Item Value Reference Range Interpretation Comments ALANINE AMINOTRANSFERASE 49 See_Comment [A utomated message] (test code = ALANINE The sys tem which AMINOTRANSFERASE) generated this result transmitted ref erence range: <=65. Th e reference range was not used to int erpret this result as normal/abnormal . [facility]2017-11-02 16:35:00 Test Item Value Reference Range Interpretation Comments Albumin Lvl (test code = Albumin Lvl) 4.0 3.5-5.0 [facility]2017-11-02 16:35:00 Test Item Value Reference Range Interpretation Comments Alk Phos (test code = Alk Phos) 54 39-136 [facility]2017-11-02 16:35:00 Test Item Value Reference Range Interpretation Comments Bili Total (test code = Bili Total) 0.2 0.2-1.3 [facility]2017-11-02 16:35:00 Test Item Value Reference Range Interpretation Comments Total Protein (test code = Total 7.6 6.4-8.4 Protein) [place] 660277-11-02 16:35:00 Test Item Value Reference Range Interpretation Comments Calcium Lvl (test code = Calcium Lvl) 8.6 8.5-10.5 [facility]2017-11-02 16:35:00 Test Item Value Reference Range Interpretation Comments CO2 (test code = CO2) 32 24-32 [facility]2017-11-02 16:35:00 Test Item Value Reference Range Interpretation Comments Glucose Lvl (test code = Glucose Lvl) 101 70-99 [facility]2017-11-02 16:35:00 Test Item Value Reference Range Interpretation Comments Creatinine Lvl (test code = Creatinine 0.87 0.50-1.40 Lvl) [facility]2017-11-02 16:35:00 Test Item Value Reference Range Interpretation Comments BUN (test code = BUN) 7 7-22 [place] [address]-11-02 16:35:00 Test Item Value Reference Range Interpretation Comments Lipase Lvl (test code = Lipase Lvl) 127 73-393 [facility] CenterJxseczdRRZCONSSTI9314-13-88 16:35:00 Test Item Value Reference Range Interpretation Comments Basophils # (test code 0.1 See_Comment [Aut omated message] The = Basophils #) system which generated this result tra nsmitted reference range : <=0.2. The reference r tc was not used to int erpret this result as normal/abnormal . [place] 498637-11-02 16:35:00 Test Item Value Reference Range Interpretation Comments Lymphocytes # (test code = Lymphocytes 1.6 1.0-5.5 #) [facility] CenterZvtlvogFKZHOYCSTG5539-66-59 16:35:00 Test Item Value Reference Range Interpretation Comments Segs-Bands # (test code = Segs-Bands #) 3.1 1.5-8.1 [facility] CenterEykmotcJWVVGWHJYM4029-56-08 16:35:00 Test Item Value Reference Range Interpretation Comments Monocytes # (test code 0.4 See_Comment [Aut omated message] The = Monocytes #) system which generated this result tra nsmitted reference range : <=0.8. The reference r tc was not used to int erpret this result as normal/abnormal . [place] [address]-11-02 16:35:00 Test Item Value Reference Range Interpretation Comments Segs (test code = Segs) 58.5 45.0-75.0 [facility] CenterIfufutiEMJDVCELNG4184-06-88 16:35:00 Test Item Value Reference Range Interpretation Comments Lymphocytes (test code = Lymphocytes) 31.4 20.0-40.0 [facility] CenterDonbachRKKAIJCFLK5543-78-37 16:35:00 Test Item Value Reference Range Interpretation Comments Eosinophils (test code = 0.9 See_Comment [A utomated message] The Eosinophils) system which ge nerated this result tra nsmitted reference range : <=4.0. The reference r tc was not used to int erpret this result as normal/abnormal . [facility] CenterJryxhsxTPGCWBBBVF9610-53-18 16:35:00 Test Item Value Reference Range Interpretation Comments Basophils (test code = 1.7 See_Comment [Aut omated message] The Basophils) system which ge nerated this result tra nsmitted reference range : <=1.0. The reference r tc was not used to int erpret this result as normal/abnormal . [facility] CenterAihehagJWYIEHDUBZ6082-96-35 16:35:00 Test Item Value Reference Range Interpretation Comments Monocytes (test code = Monocytes) 7.5 2.0-12.0 [facility] CenterXmmdjaqRKAVQNQIHC2526-75-17 16:35:00 Test Item Value Reference Range Interpretation Comments MCHC (test code = MCHC) 34.0 32.0-36.0 [facility] CenterTnsjmghVHAONKVSRQ0496-52-20 16:35:00 Test Item Value Reference Range Interpretation Comments MCH (test code = MCH) 31.2 pg 27.0-31.0 [facility] CenterRkmmnfgZQBIEYVKIJ6918-70-20 16:35:00 Test Item Value Reference Range Interpretation Comments Hct (test code = Hct) 44.9 42.0-54.0 [facility] CenterTohkndrLJTPHAFQXX0203-99-23 16:35:00 Test Item Value Reference Range Interpretation Comments MCV (test code = MCV) 91.8 80.0-94.0 [facility] CenterSsvhootQKQUMGTNJQ0126-68-51 16:35:00 Test Item Value Reference Range Interpretation Comments WBC X 10x3 (test code = WBC X 10x3) 5.2 3.7-10.4 [facility] CenterEjazepdTDFISTBHJA1220-82-89 16:35:00 Test Item Value Reference Range Interpretation Comments Hgb (test code = Hgb) 15.3 14.0-18.0 [facility] CenterIkcrkeiUZUTYZVUHW5776-47-42 16:35:00 Test Item Value Reference Range Interpretation Comments RBC X 10x6 (test code = RBC X 10x6) 4.89 4.70-6.10 [facility] CenterNchcxnpWXALDPNBNU2683-14-92 16:35:00 Test Item Value Reference Range Interpretation Comments MPV (test code = MPV) 7.7 7.4-10.4 [facility] CenterCffxaytSWGINQOVLB1639-89-46 16:35:00 Test Item Value Reference Range Interpretation Comments Platelet (test code = Platelet) 210 133-450 [facility] CenterSzvtilrTKPIZQVOTV4070-76-76 16:35:00 Test Item Value Reference Range Interpretation Comments RDW (test code = RDW) 13.1 11.5-14.5 [place] 47209017-11-02 16:35:00 Test Item Value Reference Range Interpretation Comments Grp A Strep Scr (test Negative (08/27/17 11:35 code = Grp A Strep AM) Scr) [facility] [id number] 16:35:00 Test Item Value Reference Range Interpretation Comments Influ A (test code = Negative (08/27/17 11:35 Influ A) AM) [facility] OOGPVTKC4950-47-64 16:35:00 Test Item Value Reference Range Interpretation Comments Influ B (test code = Negative (08/27/17 11:35 Influ B) AM) [facility]2017-11-02 16:35:00 Test Item Value Reference Range Interpretation Comments B/C Ratio (test code = B/C Ratio) 8 6-25 [facility]2017-11-02 16:35:00 Test Item Value Reference Range Interpretation Comments Globulin (test code = Globulin) 3.6 2.7-4.2 [facility]2017-11-02 16:35:00 Test Item Value Reference Range Interpretation Comments A/G Ratio (test code = A/G Ratio) 1.1 0.7-1.6 [facility]2017-11-02 16:35:00 Test Item Value Reference Range Interpretation Comments AGAP (test code = AGAP) 7.0 10.0-20.0 [facility]2017-11-02 16:35:00 Test Item Value Reference Range Interpretation Comments eGFR (test code = eGFR) 117 [facility]2017-11-02 16:35:00 Test Item Value Reference Range Interpretation Comments Potassium Lvl (test code = Potassium 4.0 3.5-5.1 Lvl) [facility]2017-11-02 16:35:00 Test Item Value Reference Range Interpretation Comments Sodium Lvl (test code = Sodium Lvl) 140 135-145 [facility]2017-11-02 16:35:00 Test Item Value Reference Range Interpretation Comments Chloride Lvl (test code = Chloride Lvl) 105 95-109 [facility]2017-11-02 16:35:00 Test Item Value Reference Range Interpretation Comments ASPARTATE TRANSAMINASE 29 See_Comment [Aut omated message] (test code = ASPARTATE The s ystem which TRANSAMINASE) generated this result transmitted ref erence range: <=37. Th e reference range was not used to interpr et this result as normal/abnormal . [facility]2017-11-02 16:35:00 Test Item Value Reference Range Interpretation Comments ALANINE AMINOTRANSFERASE 49 See_Comment [A utomated message] (test code = ALANINE The sys tem which AMINOTRANSFERASE) generated this result transmitted ref erence range: <=65. Th e reference range was not used to int erpret this result as normal/abnormal . [facility]2017-11-02 16:35:00 Test Item Value Reference Range Interpretation Comments Albumin Lvl (test code = Albumin Lvl) 4.0 3.5-5.0 [facility]2017-11-02 16:35:00 Test Item Value Reference Range Interpretation Comments Alk Phos (test code = Alk Phos) 54 39-136 [facility]2017-11-02 16:35:00 Test Item Value Reference Range Interpretation Comments Bili Total (test code = Bili Total) 0.2 0.2-1.3 [facility]2017-11-02 16:35:00 Test Item Value Reference Range Interpretation Comments Total Protein (test code = Total 7.6 6.4-8.4 Protein) [facility]2017-11-02 16:35:00 Test Item Value Reference Range Interpretation Comments Calcium Lvl (test code = Calcium Lvl) 8.6 8.5-10.5 [facility]2017-11-02 16:35:00 Test Item Value Reference Range Interpretation Comments CO2 (test code = CO2) 32 24-32 [facility]2017-11-02 16:35:00 Test Item Value Reference Range Interpretation Comments Glucose Lvl (test code = Glucose Lvl) 101 70-99 [facility]2017-11-02 16:35:00 Test Item Value Reference Range Interpretation Comments Creatinine Lvl (test code = Creatinine 0.87 0.50-1.40 Lvl) [place] [address]-11-02 16:35:00 Test Item Value Reference Range Interpretation Comments BUN (test code = BUN) 7 7-22 [facility]2017-11-02 16:35:00 Test Item Value Reference Range Interpretation Comments Lipase Lvl (test code = Lipase Lvl) 127 73-393 [facility] CenterIqaeekvTUSXYIKFRA6527-64-50 16:35:00 Test Item Value Reference Range Interpretation Comments Basophils # (test code 0.1 See_Comment [Aut omated message] The = Basophils #) system which generated this result tra nsmitted reference range : <=0.2. The reference r tc was not used to int erpret this result as normal/abnormal . [facility] CenterOljhgpmVUJGMOZZAN7057-51-59 16:35:00 Test Item Value Reference Range Interpretation Comments Lymphocytes # (test code = Lymphocytes 1.6 1.0-5.5 #) [facility] CenterNkulkyyERBWIUALEU5843-38-09 16:35:00 Test Item Value Reference Range Interpretation Comments Segs-Bands # (test code = Segs-Bands #) 3.1 1.5-8.1 [facility] CenterBtrjsrzVQCNJOQKTD4207-90-85 16:35:00 Test Item Value Reference Range Interpretation Comments Monocytes # (test code 0.4 See_Comment [Aut omated message] The = Monocytes #) system which generated this result tra nsmitted reference range : <=0.8. The reference r tc was not used to int erpret this result as normal/abnormal . [facility] CenterSgoskzlKDCDTWBDLY3559-65-39 16:35:00 Test Item Value Reference Range Interpretation Comments Segs (test code = Segs) 58.5 45.0-75.0 [place] 498637-11-02 16:35:00 Test Item Value Reference Range Interpretation Comments Lymphocytes (test code = Lymphocytes) 31.4 20.0-40.0 [facility] CenterUxsuxxcWSPGZEYXFR3013-05-32 16:35:00 Test Item Value Reference Range Interpretation Comments Eosinophils (test code = 0.9 See_Comment [A utomated message] The Eosinophils) system which ge nerated this result tra nsmitted reference range : <=4.0. The reference r tc was not used to int erpret this result as normal/abnormal . [facility] CenterWumvnkfUZYDPCQWQT8121-40-32 16:35:00 Test Item Value Reference Range Interpretation Comments Basophils (test code = 1.7 See_Comment [Aut omated message] The Basophils) system which ge nerated this result tra nsmitted reference range : <=1.0. The reference r tc was not used to int erpret this result as normal/abnormal . [facility] CenterYtenzefMTHWGZOLMC9805-03-88 16:35:00 Test Item Value Reference Range Interpretation Comments Monocytes (test code = Monocytes) 7.5 2.0-12.0 [facility] CenterScxhezuTACVGKJKKQ6653-78-89 16:35:00 Test Item Value Reference Range Interpretation Comments MCHC (test code = MCHC) 34.0 32.0-36.0 [facility] CenterYwemnicNSSWLYHBNP4204-51-71 16:35:00 Test Item Value Reference Range Interpretation Comments MCH (test code = MCH) 31.2 pg 27.0-31.0 [facility] CenterCdhoqqsFQWEEYAQOX2517-00-71 16:35:00 Test Item Value Reference Range Interpretation Comments Hct (test code = Hct) 44.9 42.0-54.0 [facility] CenterGmwpplqQHWVFTTCSO9167-40-98 16:35:00 Test Item Value Reference Range Interpretation Comments MCV (test code = MCV) 91.8 80.0-94.0 [facility] CenterUpnxnsiEWMRJBEQTF5601-21-57 16:35:00 Test Item Value Reference Range Interpretation Comments WBC X 10x3 (test code = WBC X 10x3) 5.2 3.7-10.4 [facility] CenterNjyatufKSLFUHHCNE8727-74-84 16:35:00 Test Item Value Reference Range Interpretation Comments Hgb (test code = Hgb) 15.3 14.0-18.0 [facility] CenterCaxfyaySDQXPPTAAV8646-70-94 16:35:00 Test Item Value Reference Range Interpretation Comments RBC X 10x6 (test code = RBC X 10x6) 4.89 4.70-6.10 [facility] CenterXmafwtzVJHYZYISTP3628-79-67 16:35:00 Test Item Value Reference Range Interpretation Comments MPV (test code = MPV) 7.7 7.4-10.4 [facility] CenterNtwklwuWHUSNBETIH6711-71-71 16:35:00 Test Item Value Reference Range Interpretation Comments Platelet (test code = Platelet) 210 133-450 [facility] CenterGgwipseVBVAGBWDLC1715-99-85 16:35:00 Test Item Value Reference Range Interpretation Comments RDW (test code = RDW) 13.1 11.5-14.5 [place] 47209017-11-02 16:35:00 Test Item Value Reference Range Interpretation Comments Grp A Strep Scr (test Negative (08/27/17 11:35 code = Grp A Strep AM) Scr) [facility] [id number] 16:35:00 Test Item Value Reference Range Interpretation Comments Influ A (test code = Negative (08/27/17 11:35 Influ A) AM) [facility] [id number] 16:35:00 Test Item Value Reference Range Interpretation Comments Influ B (test code = Negative (08/27/17 11:35 Influ B) AM) [facility]2017-11-02 16:35:00 Test Item Value Reference Range Interpretation Comments B/C Ratio (test code = B/C Ratio) 8 6-25 [facility]2017-11-02 16:35:00 Test Item Value Reference Range Interpretation Comments Globulin (test code = Globulin) 3.6 2.7-4.2 [facility]2017-11-02 16:35:00 Test Item Value Reference Range Interpretation Comments A/G Ratio (test code = A/G Ratio) 1.1 0.7-1.6 [facility]2017-11-02 16:35:00 Test Item Value Reference Range Interpretation Comments AGAP (test code = AGAP) 7.0 10.0-20.0 [facility]2017-11-02 16:35:00 Test Item Value Reference Range Interpretation Comments eGFR (test code = eGFR) 117 [facility]2017-11-02 16:35:00 Test Item Value Reference Range Interpretation Comments Potassium Lvl (test code = Potassium 4.0 3.5-5.1 Lvl) [facility]2017-11-02 16:35:00 Test Item Value Reference Range Interpretation Comments Sodium Lvl (test code = Sodium Lvl) 140 135-145 [facility]2017-11-02 16:35:00 Test Item Value Reference Range Interpretation Comments Chloride Lvl (test code = Chloride Lvl) 105 95-109 [facility]2017-11-02 16:35:00 Test Item Value Reference Range Interpretation Comments ASPARTATE TRANSAMINASE 29 See_Comment [Aut omated message] (test code = ASPARTATE The s ystem which TRANSAMINASE) generated this result transmitted ref erence range: <=37. Th e reference range was not used to interpr et this result as normal/abnormal . [facility]2017-11-02 16:35:00 Test Item Value Reference Range Interpretation Comments ALANINE AMINOTRANSFERASE 49 See_Comment [A utomated message] (test code = ALANINE The sys tem which AMINOTRANSFERASE) generated this result transmitted ref erence range: <=65. Th e reference range was not used to int erpret this result as normal/abnormal . [facility]2017-11-02 16:35:00 Test Item Value Reference Range Interpretation Comments Albumin Lvl (test code = Albumin Lvl) 4.0 3.5-5.0 [facility]2017-11-02 16:35:00 Test Item Value Reference Range Interpretation Comments Alk Phos (test code = Alk Phos) 54 39-136 [facility]2017-11-02 16:35:00 Test Item Value Reference Range Interpretation Comments Bili Total (test code = Bili Total) 0.2 0.2-1.3 [facility]2017-11-02 16:35:00 Test Item Value Reference Range Interpretation Comments Total Protein (test code = Total 7.6 6.4-8.4 Protein) [facility]2017-11-02 16:35:00 Test Item Value Reference Range Interpretation Comments Calcium Lvl (test code = Calcium Lvl) 8.6 8.5-10.5 [facility]2017-11-02 16:35:00 Test Item Value Reference Range Interpretation Comments CO2 (test code = CO2) 32 24-32 [facility]2017-11-02 16:35:00 Test Item Value Reference Range Interpretation Comments Glucose Lvl (test code = Glucose Lvl) 101 70-99 [facility]2017-11-02 16:35:00 Test Item Value Reference Range Interpretation Comments Creatinine Lvl (test code = Creatinine 0.87 0.50-1.40 Lvl) [facility]2017-11-02 16:35:00 Test Item Value Reference Range Interpretation Comments BUN (test code = BUN) 7 7-22 [facility]2017-11-02 16:35:00 Test Item Value Reference Range Interpretation Comments Lipase Lvl (test code = Lipase Lvl) 127 73-393 [facility] CenterZhtptflBVTJWOTWJX9541-47-47 16:35:00 Test Item Value Reference Range Interpretation Comments Basophils # (test code 0.1 See_Comment [Aut omated message] The = Basophils #) system which generated this result tra nsmitted reference range : <=0.2. The reference r tc was not used to int erpret this result as normal/abnormal . [facility] CenterUrnxgktHRYZPZXCZR6714-49-96 16:35:00 Test Item Value Reference Range Interpretation Comments Lymphocytes # (test code = Lymphocytes 1.6 1.0-5.5 #) [facility] CenterBhbmcsqUUDTGHGEZL2625-70-52 16:35:00 Test Item Value Reference Range Interpretation Comments Segs-Bands # (test code = Segs-Bands #) 3.1 1.5-8.1 [facility] CenterNyvirhmENQJWVRRQM1508-93-89 16:35:00 Test Item Value Reference Range Interpretation Comments Monocytes # (test code 0.4 See_Comment [Aut omated message] The = Monocytes #) system which generated this result tra nsmitted reference range : <=0.8. The reference r tc was not used to int erpret this result as normal/abnormal . [facility] CenterHdcmzveKHKWONZQYA9497-17-59 16:35:00 Test Item Value Reference Range Interpretation Comments Segs (test code = Segs) 58.5 45.0-75.0 [place] 498637-11-02 16:35:00 Test Item Value Reference Range Interpretation Comments Lymphocytes (test code = Lymphocytes) 31.4 20.0-40.0 [facility] CenterPfuzzzzHOQIXINMAW0524-65-61 16:35:00 Test Item Value Reference Range Interpretation Comments Eosinophils (test code = 0.9 See_Comment [A utomated message] The Eosinophils) system which ge nerated this result tra nsmitted reference range : <=4.0. The reference r tc was not used to int erpret this result as normal/abnormal . [facility]2017-11-02 16:35:00 Test Item Value Reference Range Interpretation Comments B/C Ratio (test code = B/C Ratio) 8 6-25 [facility]2017-11-02 16:35:00 Test Item Value Reference Range Interpretation Comments Globulin (test code = Globulin) 3.6 2.7-4.2 [facility]2017-11-02 16:35:00 Test Item Value Reference Range Interpretation Comments A/G Ratio (test code = A/G Ratio) 1.1 0.7-1.6 [facility]2017-11-02 16:35:00 Test Item Value Reference Range Interpretation Comments AGAP (test code = AGAP) 7.0 10.0-20.0 [facility]2017-11-02 16:35:00 Test Item Value Reference Range Interpretation Comments eGFR (test code = eGFR) 117 [facility]2017-11-02 16:35:00 Test Item Value Reference Range Interpretation Comments Potassium Lvl (test code = Potassium 4.0 3.5-5.1 Lvl) [facility]2017-11-02 16:35:00 Test Item Value Reference Range Interpretation Comments Sodium Lvl (test code = Sodium Lvl) 140 135-145 [facility]2017-11-02 16:35:00 Test Item Value Reference Range Interpretation Comments Chloride Lvl (test code = Chloride Lvl) 105 95-109 [facility]2017-11-02 16:35:00 Test Item Value Reference Range Interpretation Comments ASPARTATE TRANSAMINASE 29 See_Comment [Aut omated message] (test code = ASPARTATE The s ystem which TRANSAMINASE) generated this result transmitted ref erence range: <=37. Th e reference range was not used to interpr et this result as normal/abnormal . [facility]2017-11-02 16:35:00 Test Item Value Reference Range Interpretation Comments ALANINE AMINOTRANSFERASE 49 See_Comment [A utomated message] (test code = ALANINE The sys tem which AMINOTRANSFERASE) generated this result transmitted ref erence range: <=65. Th e reference range was not used to int erpret this result as normal/abnormal . [facility]2017-11-02 16:35:00 Test Item Value Reference Range Interpretation Comments Albumin Lvl (test code = Albumin Lvl) 4.0 3.5-5.0 [facility]2017-11-02 16:35:00 Test Item Value Reference Range Interpretation Comments Alk Phos (test code = Alk Phos) 54 39-136 [facility]2017-11-02 16:35:00 Test Item Value Reference Range Interpretation Comments Bili Total (test code = Bili Total) 0.2 0.2-1.3 [facility]2017-11-02 16:35:00 Test Item Value Reference Range Interpretation Comments Total Protein (test code = Total 7.6 6.4-8.4 Protein) [facility]2017-11-02 16:35:00 Test Item Value Reference Range Interpretation Comments Calcium Lvl (test code = Calcium Lvl) 8.6 8.5-10.5 [facility]2017-11-02 16:35:00 Test Item Value Reference Range Interpretation Comments CO2 (test code = CO2) 32 24-32 [facility]2017-11-02 16:35:00 Test Item Value Reference Range Interpretation Comments Glucose Lvl (test code = Glucose Lvl) 101 70-99 [facility]2017-11-02 16:35:00 Test Item Value Reference Range Interpretation Comments Creatinine Lvl (test code = Creatinine 0.87 0.50-1.40 Lvl) [facility]2017-11-02 16:35:00 Test Item Value Reference Range Interpretation Comments BUN (test code = BUN) 7 7-22 [facility]2017-11-02 16:35:00 Test Item Value Reference Range Interpretation Comments Lipase Lvl (test code = Lipase Lvl) 127 73-393 [facility]SFEML1347[facility]25 16:35:00 Test Item Value Reference Range Interpretation Comments Basophils # (test code 0.1 See_Comment [Aut omated message] The = Basophils #) system which generated this result tra nsmitted reference range : <=0.2. The reference r tc was not used to int erpret this result as normal/abnormal . [facility] CenterFhiqxgcVBISQPSHTN1583-42-31 16:35:00 Test Item Value Reference Range Interpretation Comments Lymphocytes # (test code = Lymphocytes 1.6 1.0-5.5 #) [facility] CenterXlinvkkJRMWMTTPKA2980-69-54 16:35:00 Test Item Value Reference Range Interpretation Comments Segs-Bands # (test code = Segs-Bands #) 3.1 1.5-8.1 [facility] CenterRvprltcZMKZFXAFQQ7831-62-53 16:35:00 Test Item Value Reference Range Interpretation Comments Monocytes # (test code 0.4 See_Comment [Aut omated message] The = Monocytes #) system which generated this result tra nsmitted reference range : <=0.8. The reference r tc was not used to int erpret this result as normal/abnormal . [facility] CenterZyhxfldYWOFSEPIZF5184-52-34 16:35:00 Test Item Value Reference Range Interpretation Comments Segs (test code = Segs) 58.5 45.0-75.0 [facility] CenterWnbmogrNKURVERZJK5052-51-14 16:35:00 Test Item Value Reference Range Interpretation Comments Lymphocytes (test code = Lymphocytes) 31.4 20.0-40.0 [facility] CenterYceqsfpGEDUZCKSFO8267-93-06 16:35:00 Test Item Value Reference Range Interpretation Comments Eosinophils (test code = 0.9 See_Comment [A utomated message] The Eosinophils) system which ge nerated this result tra nsmitted reference range : <=4.0. The reference r tc was not used to int erpret this result as normal/abnormal . [facility] CenterXnojcpkUALUGDPWRN1943-73-85 16:35:00 Test Item Value Reference Range Interpretation Comments Basophils (test code = 1.7 See_Comment [Aut omated message] The Basophils) system which ge nerated this result tra nsmitted reference range : <=1.0. The reference r tc was not used to int erpret this result as normal/abnormal . [facility] CenterQekyegeWJSUEESDWR3975-88-38 16:35:00 Test Item Value Reference Range Interpretation Comments Monocytes (test code = Monocytes) 7.5 2.0-12.0 [facility] CenterKrplxldCONMXKMKEY3706-31-34 16:35:00 Test Item Value Reference Range Interpretation Comments MCHC (test code = MCHC) 34.0 32.0-36.0 [facility]ylbwfkUBGADUTBAX7857-57-93 16:35:00 Test Item Value Reference Range Interpretation Comments MCH (test code = MCH) 31.2 pg 27.0-31.0 [facility] CenterLietokfJZAKWCFAQW0562-67-48 16:35:00 Test Item Value Reference Range Interpretation Comments Hct (test code = Hct) 44.9 42.0-54.0 [facility] CenterQlpbmijGSIPZVBOBZ6255-59-25 16:35:00 Test Item Value Reference Range Interpretation Comments MCV (test code = MCV) 91.8 80.0-94.0 [facility] CenterWecrxetLBGIRBARII5095-41-77 16:35:00 Test Item Value Reference Range Interpretation Comments WBC X 10x3 (test code = WBC X 10x3) 5.2 3.7-10.4 [facility] CenterOblkwvwOKOWSCRBKH3408-85-57 16:35:00 Test Item Value Reference Range Interpretation Comments Hgb (test code = Hgb) 15.3 14.0-18.0 [facility] CenterQgggcdwKDIQITFXXY5550-43-81 16:35:00 Test Item Value Reference Range Interpretation Comments RBC X 10x6 (test code = RBC X 10x6) 4.89 4.70-6.10 [facility] CenterIietmdyWBMZZKDHKN6990-98-41 16:35:00 Test Item Value Reference Range Interpretation Comments MPV (test code = MPV) 7.7 7.4-10.4 [facility] CenterWyboqlbFAAHJDUNFR4518-43-84 16:35:00 Test Item Value Reference Range Interpretation Comments Platelet (test code = Platelet) 210 133-450 [facility] CenterTxmqrfzTYXSAFDUGG0963-41-20 16:35:00 Test Item Value Reference Range Interpretation Comments RDW (test code = RDW) 13.1 11.5[facility].5 [facility] 16:35:[facility] Test Item Value Reference Range Interpretation Comments Grp A Strep Scr (test Negative (08/27/17 11:35 code = Grp A Strep AM) Scr) [facility] MYPSMMII1468-32-28 16:35:00 Test Item Value Reference Range Interpretation Comments Influ A (test code = Negative (08/27/17 11:35 Influ A) AM) [facility] - [id number] 16:35:00 Test Item Value Reference Range Interpretation Comments Influ B (test code = Negative (08/27/17 11:35 Influ B) AM) [facility]
[2023-02-16] MEDS ORDERED: DIAZEPAM 5 MG TABLET ONE (20:37)
[2023-02-16 20:45] LABS: Absolute Lymphocytes (CBC) 1.8 K/uL (0.7-4.9); Hematocrit 25.5 % (39.6-49.0); Lymphocytes % 10.2 % (15.3-44.8); MCV 88.1 fL (80-100); MPV 6.6 fL (7.6-11.3); RBC Red Blood Cell Count 2.89 M/uL (4.33-5.43)
[2023-02-16] MEDS ORDERED: NA CHLORIDE 0.9% 1,000 ML ONE (20:49)
[2023-02-16 20:59] LABS: Albumin 3.1 g/dL (3.4-5.0); Bilirubin Total 0.2 mg/dL (0.2-1.0); Potassium 3.5 mEq/L (3.5-5.1); Protein, Total 6.7 g/dL (6.4-8.2)
[2023-02-16] MEDS ORDERED: ACETAMINOPHEN 500 MG TAB ONE (21:23)
--- NOTE | 2023-02-16 21:25 | RAD REPORT ---
EXAM DESCRIPTION: RAD - Thoracic Spine Ap/Lat - 02/16/2023 8:49 pm CLINICAL HISTORY: WEAKNESS COMPARISON: No comparisons TECHNIQUE: Thoracic spine, 2 views. FINDINGS: Thoracic vertebral bodies are normal in height and alignment. There are no acute or destru ctive bony processes see. No paraspinal masses are identified. No disc space narrowing. IMPRESSION: Negative thoracic spine examination.
--- NOTE | 2023-02-16 21:30 | RAD REPORT ---
EXAM DESCRIPTION: RAD - Lumbar Spine 3 Views - 02/16/2023 8:49 pm CLINICAL HISTORY: PAIN COMPARISON: No comparisons TECHNIQUE: Lumbar spine, 3 views. FINDINGS: Lumbar vertebral bodies are normal in height and alignment. No fracture or acute bony proc ess seen. No disc space narrowing. No other significant findings. IMPRESSION: Negative Lumbar Spine examination.
[2023-02-16 22:10] LABS: Blood Morphology Comment NOTED (NOT SEEN); Platelet Estimate INCR; Polychromasia 2+
[2023-02-16 22:56] LABS: Specific Gravity 1.019 (1.005-1.030); Urine Bacteria None Seen /HPF (<20); Urine Bilirubin NEGATIVE (Negative); Urine Blood Negative (Negative); Urine Clarity Clear (Clear); Urine Color Light-Yellow (Yellow); Urine Glucose NEGATIVE (Negative); Urine Mucus Slight /HPF (None Seen); Urine Protein TRACE (Negative); Urine RBC <5 /HPF (None Seen); Urine Urobilinogen Normal (Normal)
[2023-02-16] MEDS ORDERED: predniSONE 20 MG TAB ONE (23:04)
[2023-02-16] MEDS ORDERED: IBUPROFEN 400 MG TAB ONE (23:04)
[2023-02-16] MEDS ORDERED: IBUPROFEN 200 MG TAB PO ONE (23:04)
--- NOTE | 2023-02-17 00:38 | ER ---
Nurse's Notes [facility] Name: Alex Whitt Age: 32 yrs Sex: Male : 1990 Arrival Date: 02/16/2023 Time: 19:27 Bed 16 Private MD: Diagnosis: Weakness;Lymphoma Presentation: 02/16 19:44 Chief complaint: Patient states: sudden onset of weakness while in the shower around lg3 1800. diagnosed with lymphoma late december. first chem treatment 01/27/23 for 4 days. first time experiencing anything like this. Coronavirus screen: Client denies travel out of the [place] in the last 14 days. At this time, the client does not indicate any symptoms associated with coronavirus-19. Ebola Screen: No symptoms or risks identified at this time. Initial Sepsis Screen: Does the patient meet any 2 criteria? No. Patient's initial sepsis screen is negative. Does the patient have a suspected source of infection? No. Patient's initial sepsis screen is negative. Risk Assessment: Do you want to hurt yourself or someone else? Patient reports no desire to harm self or others. Onset of symptoms was February 16, 2023. 19:44 Method Of Arrival: EMS: [facility] 19:44 Acuity: WILD 3 lg3 Triage Assessment: 19:48 General: Appears in no apparent distress. comfortable, Behavior is calm, cooperative. lg3 Pain: Denies pain. EENT: No deficits noted. No signs and/or symptoms were reported regarding the EENT system. Neuro: No deficits noted. Hinson Agitation-Sedation Scale (RASS): 0 - Alert and Calm Level of Consciousness is awake, alert, obeys commands, Oriented to person, place, time, situation. Cardiovascular: No deficits noted. Denies chest pain, shortness of breath, Capillary refill < 3 seconds Clubbing of nail beds is absent JVD is absent Patient's skin is warm and dry. Respiratory: No deficits noted. Airway is patent Trachea midline Respiratory effort is even, unlabored, Respiratory pattern is regular, symmetrical. GI: No deficits noted. No signs and/or symptoms were reported involving the gastrointestinal system. Abdomen is flat, non-distended. : No deficits noted. No signs and/or symptoms were reported regarding the genitourinary system. Derm: No deficits noted. No signs and/or symptoms reported regarding the dermatologic system. Skin is intact, is healthy with good turgor, Skin is dry, Skin is normal, Skin temperature is warm. Musculoskeletal: Reports generalized weakness. Historical: - Allergies: 19:48 No Known Allergies; lg3 - Home Meds: 19:48 gabapentin 300 mg oral capsule 3 times per day [Active]; Protonix 40 mg Oral tablet, lg3 delayed release (enteric coated) every morning [Active]; Bactrim DS 800-160 mg Oral tablet 1 tab MWF [Active]; acyclovir 400 mg Oral tablet 2 times per day [Active]; allopurinol 300 mg Oral tablet 2 times per day [Active]; diazepam 5 mg Oral tablet daily [Active]; - PMHx: 19:48 Anxiety; stage 4 lymphoma; lg3 - PSHx: 19:48 tumor removal (back); lg3 - Immunization history:: Adult Immunizations up to date, Client reports having NOT received the Covid vaccine. Flu vaccine is up to date. - Social history:: Smoking status: Patient denies any tobacco usage or history of. Patient/guardian denies using alcohol, street drugs. Screenin:55 [facility] ED Fall Risk Assessment (Adult) History of falling in the last 3 months, lg3 including since admission No falls in past 3 months (0 pts). Abuse screen: Denies threats or abuse. Denies injuries from another. Nutritional screening: No deficits noted. Tuberculosis screening: No symptoms or risk factors identified. Assessment: 19:55 General: see triage assessment . lg3 21:06 Reassessment: Patient appears in no apparent distress at this time. No changes from lg3 previously documented assessment. Patient and/or family updated on plan of care and expected duration. Pain level reassessed. Pain: Complains of pain in head Pain radiates to right eye and left eye Pain currently is 9 out of 10 on a pain scale. Quality of pain is described as heavy, pressure. 21:52 Reassessment: Patient appears in no apparent distress at this time. No changes from lg3 previously documented assessment. Patient and/or family updated on plan of care and expected duration. Pain level reassessed. 22:37 Reassessment: Patient appears in no apparent distress at this time. No changes from lg3 previously documented assessment. Patient and/or family updated on plan of care and expected duration. Pain level reassessed. Pain: Complains of pain in head Pain radiates to right eye and left eye Pain currently is 10 out of 10 on a pain scale. Quality of pain is described as heavy, pressure, Also complains of photophobia. 23:58 Reassessment: Patient appears in no apparent distress at this time. No changes from lg3 previously documented assessment. Patient and/or family updated on plan of care and expected duration. Pain level reassessed. 02/17 02:27 Reassessment: Patient appears in no apparent distress at this time. No changes from lg3 previously documented assessment. Patient and/or family updated on plan of care and expected duration. Pain level reassessed. Patient states symptoms have improved. Vital Signs: 02/16 19:44 BP 125 / 85; Pulse 82; Resp 15 S; Temp 99.4(O); Pulse Ox 99% on R/A; Weight 65.77 kg lg3 (R); Height 5 ft. 8 in. (R); Pain 0/10; 20:38 BP 127 / 78 Supine; lg3 20:38 BP 119 / 73 Sitting; lg3 20:38 BP 110 / 74 Standing; lg3 21:52 BP 125 / 79; Pulse 99; Resp 15 S; Pulse Ox 100% on R/A; lg3 22:38 BP 111 / 72; Pulse 86; Resp 15 S; Pulse Ox 100% on R/A; lg3 23:58 BP 116 / 69; Pulse 98; Resp 14 S; Pulse Ox 100% on R/A; lg3 19:44 Body Mass Index 22.05 (65.77 kg, 172.72 cm) lg3 19:44 Pain Scale: Adult lg3 ED Course: 19:29 Patient arrived in ED. rv1 19:44 Genesis Asif RN is Primary Nurse. lg3 19:46 Gildardo Baires MD is Attending Physician. kdr 19:48 Triage completed. lg3 19:48 Arm band placed on left wrist. lg3 19:55 Patient has correct armband on for positive identification. Placed in gown. Bed in low lg3 position. Call light in reach. Side rails up X 1. Client placed on continuous cardiac and pulse oximetry monitoring. NIBP monitoring applied. manager monitoring on. Door closed. Noise minimized. Family accompanied patient. 20:36 Inserted saline lock: 22 gauge in left antecubital area, using aseptic technique. Blood lg3 collected. 20:37 Strep Sent. lg3 20:38 CMP Sent. lg3 20:38 CBC with Diff Sent. lg3 20:51 Lumbar Spine (3 Views) XRAY In Process Unspecified. EDMS 20:51 Thoracic Spine Ap/Lat In Process Unspecified. EDMS 21:05 Flu Sent. lg3 21:06 COVID-19 SARS RT PCR Sent. lg3 23:26 CXR XRAY In Process Unspecified. EDMS 23:40 CT Head Brain wo Cont In Process Unspecified. EDMS 23:52 Initiated Transfer with [facility] with Lee Ann Alexandra. rv1 02/17 00:07 Blood Culture Adult (2) Sent. lg3 00:48 Pt accepted at [facility] by Dr. Cadena. rv1 02:27 No provider procedures requiring assistance completed. Patient transferred, IV remains lg3 in place. intact, No redness/swelling at site. Administered Medications: 02/16 20:37 Drug: Diazepam PO 5 mg Route: PO; lg3 02/17 00:07 Follow up: Response: No adverse reaction; Anxiety decreased; RASS: Alert and Calm (0) lg3 02/16 20:58 Drug: NS 0.9% IV 500 ml Route: IV; Rate: bolus; Site: left antecubital; lg3 21:19 Drug: Acetaminophen PO 1000 mg Route: PO; lg3 02/17 00:07 Follow up: Response: No adverse reaction; No change in condition; Pain is unchanged, lg3 physician notified 02/16 23:12 Drug: predniSONE PO 60 mg Route: PO; lg3 02/17 00:07 Follow up: Response: No adverse reaction lg3 02/16 23:12 Drug: Ibuprofen PO 600 mg Route: PO; lg3 02/17 00:07 Follow up: Response: No adverse reaction lg3 Medication: 02:31 VIS not applicable for this client. lg3 Outcome: 00:37 ER care complete, transfer ordered by . kdr 02:27 Transferred by ground EMS to [facility], Transfer form completed. lg3 02:27 Condition: stable 02:27 Instructed on the need for transfer, Demonstrated understanding of instructions. 02:32 Patient left the ED. lg3 Signatures: Dispatcher [employer] EDGildardo Grady MD MD kdr Genesis Asif RN RN lg3 Amanda Alarcon rv1 Corrections: (The following items were deleted from the chart) 02/16 22:38 22:37 Pain: Complains of pain in head Pain radiates to right eye and left eye Pain lg3 currently is 10 out of 10 on a pain scale. Quality of pain is described as heavy, pressure, lg3 02/17 02:34 02:33 [facility] with Lee Ann Alexandra rv1 rv1
--- NOTE | 2023-02-17 00:38 | EDPHYS ---
Physician Documentation [facility] Name: Alex Whitt Age: 32 yrs Sex: Male : 1990 Arrival Date: 02/16/2023 Time: 19:27 Bed 16 Private MD: ED Physician Gildardo Baires HPI: 02/17 03:28 This 32 yrs old Male presents to ER via EMS with unknown complaint. kdr 03:28 This 32 yrs old Male presents to ER via EMS with complaints of Weakness. kdr 03:28 Patient was at home today in his usual state of health when around 1800, he became weak kdr while in the shower. Patient was diagnosed with lymphoma in late December and had his first chemotherapy during early January for period of about 4 days. He was an inpatient at that time at [facility]. Since then he has otherwise been doing generally well until today when he had this episode. He denies any other recent evidence of infection including cough congestion or urinary tract symptoms. Patient is awake alert and appropriate. He does not require emergent intervention and is not appearing to be acutely ill at this time. Onset: The symptoms/episode began/occurred suddenly, just prior to arrival. Severity of symptoms: At their worst the symptoms were mild in the emergency department the symptoms have improved mildly. The patient has not experienced similar symptoms in the past. The patient has been recently seen by a physician: the patient's primary care provider. Historical: - Allergies: 02/16 19:48 No Known Allergies; lg3 - Home Meds: 19:48 gabapentin 300 mg oral capsule 3 times per day [Active]; Protonix 40 mg Oral tablet, lg3 delayed release (enteric coated) every morning [Active]; Bactrim DS 800-160 mg Oral tablet 1 tab MWF [Active]; acyclovir 400 mg Oral tablet 2 times per day [Active]; allopurinol 300 mg Oral tablet 2 times per day [Active]; diazepam 5 mg Oral tablet daily [Active]; - PMHx: 19:48 Anxiety; stage 4 lymphoma; lg3 - PSHx: 19:48 tumor removal (back); lg3 - Immunization history:: Adult Immunizations up to date, Client reports having NOT received the Covid vaccine. Flu vaccine is up to date. - Social history:: Smoking status: Patient denies any tobacco usage or history of. Patient/guardian denies using alcohol, street drugs. ROS: 02/17 03:28 Constitutional: Negative for fever, chills, and weight loss, Eyes: Negative for injury, kdr pain, redness, and discharge, ENT: Negative for injury, pain, and discharge, Neck: Negative for injury, pain, and swelling, Cardiovascular: Negative for chest pain, palpitations, and edema, Respiratory: Negative for shortness of breath, cough, wheezing, and pleuritic chest pain, Abdomen/GI: Negative for abdominal pain, nausea, vomiting, diarrhea, and constipation, Back: Negative for injury and pain, : Negative for injury, bleeding, discharge, and swelling, MS/Extremity: Negative for injury and deformity, Neuro: Negative for headache, weakness, numbness, tingling, and seizure activity. Psych: Negative for depression, anxiety, suicide ideation, homicidal ideation, and hallucinations, Allergy/Immunology: Negative for hives, rash, and allergies, Endocrine: Negative for neck swelling, polydipsia, polyuria, polyphagia, and marked weight changes, Hematologic/Lymphatic: Negative for swollen nodes, abnormal bleeding, and unusual bruising. Skin: Positive for erythema, of the right clavicle. Exam: 03:28 Constitutional: This is a well developed, well nourished patient who is awake, alert, kdr and in no acute distress. Head/Face: Normocephalic, atraumatic. Eyes: Pupils equal round and reactive to light, extra-ocular motions intact. Lids and lashes normal. Conjunctiva and sclera are non-icteric and not injected. Cornea within normal limits. Periorbital areas with no swelling, redness, or edema. Neck: Trachea midline, no thyromegaly or masses palpated, and no cervical lymphadenopathy. Supple, full range of motion without nuchal rigidity, or vertebral point tenderness. No Meningismus. Chest/axilla: Normal chest wall appearance and motion. Nontender with no deformity. No lesions are appreciated. Cardiovascular: Regular rate and rhythm with a normal S1 and S2. No gallops, murmurs, or rubs. Normal PMI, no JVD. No pulse deficits. Respiratory: Lungs have equal breath sounds bilaterally, clear to auscultation and percussion. No rales, rhonchi or wheezes noted. No increased work of breathing, no retractions or nasal flaring. Abdomen/GI: Soft, non-tender, with normal bowel sounds. No distension or tympany. No guarding or rebound. No evidence of tenderness throughout. Back: No spinal tenderness. No costovertebral tenderness. Full range of motion. MS/ Extremity: Pulses equal, no cyanosis. Neurovascular intact. Full, normal range of motion. Neuro: Awake and alert, GCS 15, oriented to person, place, time, and situation. Cranial nerves II-XII grossly intact. Motor strength 5/5 in all extremities. Sensory grossly intact. Cerebellar exam normal. Normal gait. Psych: Awake, alert, with orientation to person, place and time. Behavior, mood, and affect are within normal limits. 03:28 Skin: cellulitis, that is minimal, on the right clavicle. Vital Signs: 02/16 19:44 BP 125 / 85; Pulse 82; Resp 15 S; Temp 99.4(O); Pulse Ox 99% on R/A; Weight 65.77 kg lg3 (R); Height 5 ft. 8 in. (R); Pain 0/10; 20:38 BP 127 / 78 Supine; lg3 20:38 BP 119 / 73 Sitting; lg3 20:38 BP 110 / 74 Standing; lg3 21:52 BP 125 / 79; Pulse 99; Resp 15 S; Pulse Ox 100% on R/A; lg3 22:38 BP 111 / 72; Pulse 86; Resp 15 S; Pulse Ox 100% on R/A; lg3 23:58 BP 116 / 69; Pulse 98; Resp 14 S; Pulse Ox 100% on R/A; lg3 19:44 Body Mass Index 22.05 (65.77 kg, 172.72 cm) lg3 19:44 Pain Scale: Adult lg3 MDM: 02/17 00:37 Patient medically screened. kdr 03:28 Data reviewed: vital signs, nurses notes, lab test result(s), radiologic studies. kdr Consideration of Admission/Observation Escalation of care including admission/observation considered. Management of patient was discussed with the following: Hospitalist: Niko physician. 02/16 20:10 Order name: CMP; Complete Time: 22:52 kdr 02/16 20:10 Order name: CBC with Diff; Complete Time: 22:52 kdr 02/16 20:10 Order name: Urine W/Microscopic (UAM); Complete Time: 23:14 kdr 02/16 20:10 Order name: Strep; Complete Time: 22:52 kdr 02/16 20:14 Order name: COVID-19 SARS RT PCR; Complete Time: 22:52 rv1 02/16 20:14 Order name: Flu; Complete Time: 22:52 rv1 02/16 20:59 Order name: Throat Culture EDMS 02/16 22:10 Order name: Manual Differential; Complete Time: 22:52 EDMS 02/16 23:07 Order name: Blood Culture Adult (2) kdr 02/16 20:11 Order name: Lumbar Spine (3 Views) XRAY; Complete Time: 22:52 kdr 02/16 20:18 Order name: Thoracic Spine Ap/Lat; Complete Time: 22:52 EDMS 02/16 22:58 Order name: CXR XRAY kdr 02/16 23:05 Order name: CT Head Brain wo Cont kdr 02/16 20:10 Order name: Orthostatic Blood Pressure; Complete Time: 20:37 kdr Administered Medications: 02/16 20:37 Drug: Diazepam PO 5 mg Route: PO; lg3 02/17 00:07 Follow up: Response: No adverse reaction; Anxiety decreased; RASS: Alert and Calm (0) 3 02/16 20:58 Drug: NS 0.9% IV 500 ml Route: IV; Rate: bolus; Site: left antecubital; lg3 21:19 Drug: Acetaminophen PO 1000 mg Route: PO; lg3 02/17 00:07 Follow up: Response: No adverse reaction; No change in condition; Pain is unchanged, lg3 physician notified 02/16 23:12 Drug: predniSONE PO 60 mg Route: PO; lg3 02/17 00:07 Follow up: Response: No adverse reaction lg3 02/16 23:12 Drug: Ibuprofen PO 600 mg Route: PO; lg3 02/17 00:07 Follow up: Response: No adverse reaction lg3 Disposition Summary: 02/17/23 00:37 Transfer Ordered Transfer Location: [facility] kdr Reason: Higher level of care kdr Condition: Fair kdr Problem: new kdr Symptoms: have improved kdr Accepting Physician: Dr. Dugan(02/17/23 02:32) lg3 Diagnosis - Weakness kdr - Lymphoma kdr Forms: - Medication Reconciliation Form kdr - SBAR form kdr Signatures: Dispatcher [employer] EDWV Gildardo Baires MD MD kdr Genesis Asif RN RN lg3 Corrections: (The following items were deleted from the chart) 02/16 20:16 20:15 Spine Single View Thoracic+RAD.RAD.BRZ ordered. [facility] 02/17 02:32 00:37 Dr. Ritchie velez lg3
[2023-02-17 03:24] VITALS: TEMP 99.4
[2023-02-17 03:48] VITALS: O2SAT 100
[2023-02-17 03:51] VITALS: BP 116/69
--- NOTE | 2023-02-17 11:03 | RAD REPORT ---
EXAM DESCRIPTION: RAD - Chest Single View - 02/16/2023 11:24 pm CLINICAL HISTORY: 32 years Male COUGH TECHNIQUE: One view of the chest. COMPARISON: No prior exams provided for comparison. FINDINGS: Tunneled right jugular central venous catheter tip projects over the cavoatrial junction. The lungs are clear without focal consolidation, effusion, or pneumothorax. The cardiomediastinal satish houette and central pulmonary vasculature are normal. No acute osseous abnormalities. IMPRESSION: No acute cardiopulmonary abnormalities. Electronically signed by: Darlene Torres MD 02/16/2023 11:37 PM CDT Due to temporary technical issues with the PACS/Fluency reporting system, reports are being signed by the in house radiologists without review as a courtesy to insure prompt reporting. The interpreting radiologist is fully responsible for the content of the report.
--- NOTE | 2023-02-17 11:04 | RAD REPORT ---
EXAM DESCRIPTION: CT - Head Brain Wo Cont - 02/17/2023 6:39 am CLINICAL HISTORY: 32 years Male HEADACHE TECHNIQUE: Contiguous axial CT images obtained through the brain without IV contrast. Coronal and sa gittal reformats also provided. This CT exam was performed according to our departmental dose-optimization program, which includes on e or more of the following dose reduction techniques: automated exposure control, adjustment of the m A and/or kV according to patient size, and/or use of iterative reconstruction technique. COMPARISON: 01/06/2023 FINDINGS: There is no intracranial hemorrhage, extra-axial collection, or acute transcortical infarc tion. The ventricles are normal in size and contour without mass-effect or midline shift. Osseous structures are normal. The paranasal sinuses and mastoid air cells are clear. IMPRESSION: No acute intracranial abnormalities. Electronically signed by: Darlene Torres MD 02/16/2023 11:52 PM CDT Due to temporary technical issues with the PACS/Fluency reporting system, reports are being signed by the in house radiologists without review as a courtesy to insure prompt reporting. The interpreting radiologist is fully responsible for the content of the report.
== END 2023-02-17 02:32 | disposition short-term general hospital (02) ==
LOC: ER 19:27
DX: C85.90 Non-Hodgkin lymphoma, unspecified, unspecified site (principal); Z20.822 Contact with and (suspected) exposure to COVID-19; F41.9 Anxiety disorder, unspecified
CPT/HCPCS: 87040 ×2; 87070; 85025; 81001; 36415; 87081; 80053; 87804 ×2; 70450; 71045; 72100; 72070; 99285; U0003; J7512; J7030

== ENCOUNTER 2024-04-21 13:00 | Emergency (ER) | payer BC ==
[2024-04-21] MEDS ORDERED: FAMOTIDINE 20 MG/2 ML VIAL IV ONE (15:10)
[2024-04-21] MEDS ORDERED: DICYCLOMINE HCL 10 MG CAP ONE (15:10)
[2024-04-21] MEDS ORDERED: NA CHLORIDE 0.9% 1,000 ML ONE (15:10)
[2024-04-21] MEDS ORDERED: ONDANSETRON 4 MG/2 ML VIAL ONE (15:10)
[2024-04-21 15:14] LABS: Absolute Lymphocytes (CBC) 1.5 K/uL (0.7-4.9); Absolute Monocytes 0.7 K/uL (0.1-1.3); Absolute Neutrophil 4.7 K/uL (1.8-8.0); Basophils % 0.2 % (0-1.3); Eosinophils % 0.7 % (0-4.4); Hematocrit 46.6 % (39.6-49.0); Hemoglobin 15.4 g/dL (13.6-17.9); Lymphocytes % 21.5 % (15.3-44.8); MCH 31.2 pg (27.0-35.0); MCHC 33.1 g/dL (32.0-36.0); MCV 94.3 fL (80-100); MPV 7.3 fL (7.6-11.3); Monocytes % 9.8 % (3.3-12.3); Neutrophils % 67.8 % (41.7-73.7); Nucleated Red Blood Cells % 0.2 % (0-0); Platelets 268 thou/uL (152-406); RBC Red Blood Cell Count 4.94 M/uL (4.33-5.43); Red Cell Distribution Width 14.4 % (12.1-15.2)
[2024-04-21 15:26] LABS: Specific Gravity 1.023 (1.005-1.030); Sqamous Epithelial None Seen /HPF (None Seen); Urine Bacteria None Seen /HPF (<20); Urine Bilirubin NEGATIVE (Negative); Urine Blood Negative (Negative); Urine Clarity Clear (Clear); Urine Color Yellow (Yellow); Urine Crystals Unidentified Few /HPF (None Seen); Urine Culture Reflex Order NOT NEEDED; Urine Glucose NEGATIVE (Negative); Urine Ketones NEGATIVE (Negative); Urine Microscopic Reflex YN ORDER UMIC; Urine Mucus 2+ /HPF (None Seen); Urine Nitrite NEGATIVE (Negative); Urine Protein TRACE (Negative); Urine RBC <5 /HPF (None Seen); Urine Urobilinogen Normal (Normal); Urine WBC <5 /HPF (<5); Urine pH 5.5 (5.0-7.0)
[2024-04-21 15:29] LABS: Albumin 3.8 g/dL (3.4-5.0); Albumin/Globulin Ratio 1.1 (1.1-1.8); Anion Gap 4.7 mEq/L (5.0-15.0); Bilirubin Total 0.4 mg/dL (0.2-1.0); Globulin 3.4 g/dL (2.3-3.5); Potassium 3.7 mEq/L (3.5-5.1); Protein, Total 7.2 g/dL (6.4-8.2)
--- NOTE | 2024-04-21 16:11 | RAD REPORT ---
EXAM DESCRIPTION: CT - Chest Abdomen Pelvis W Cont - 04/21/2024 3:46 pm CLINICAL HISTORY: Chest and abdominal pain. Sob. Lymphoma COMPARISON: 2022 MRI spine TECHNIQUE: Computed axial tomography of the chest, abdomen and pelvis was obtained. 100 cc Isovue-30 0 was administered intravenously. Oral contrast was not requested. This limits evaluation of bowel. All CT scans are performed using dose optimization technique as appropriate and may include automated exposure control or mA/KV adjustment according to patient size. FINDINGS: The lungs are clear No mediastinal or hilar lymphadenopathy. No pleural effusion. No pericardial effusion. Liver, spleen, pancreas, adrenals and kidneys are unremarkable No evidence of diverticulitis Normal appendix Known lesion T9 vertebral body with old mild to moderate compression deformity. Postsurgical changes involve the spine IMPRESSION: No acute abnormality is displayed
--- NOTE | 2024-04-21 16:20 | EDPHYS ---
Physician Documentation [facility] Name: Alex Whitt Age: 34 yrs Sex: Male : 1990 Arrival Date: 04/21/2024 Time: 13:00 Bed DX3 Private MD: ED Physician Juan C Win HPI: 04/21 16:20 This 34 yrs old Male presents to ER via Ambulatory with complaints of kb Abdominal Pain, Vomiting/Diarrhea, Back Pain. 16:20 Patient is a 34-year-old male who presents for diffuse abdominal pain, diarrhea, kb decreased appetite and nausea with weight loss that began 1 and half months ago. Patient is in remission from lymphoma, completed chemo in July 2023. States he called his oncologist and was told to come to the ER for evaluation. Patient sees Dr. Castellanos at [facility]. Historical: - Allergies: 13:22 chemo drug; ll1 - PMHx: 13:22 Anxiety; stage 4 lymphoma; ll1 - PSHx: 13:22 tumor removal (back); ll1 - Immunization history:: Adult Immunizations up to date. - Infectious Disease History:: Denies. - Social history:: Smoking status: Patient denies any tobacco usage or history of. ROS: 16:19 Constitutional: As per HPI kb Exam: 16:19 Constitutional: This is a well developed, well nourished patient who is awake, alert, kb and in no acute distress. Head/Face: Normocephalic, atraumatic. ENT: Moist Mucous membranes Cardiovascular: Regular rate Respiratory: Respirations even and unlabored. No increased work of breathing. Talking in full sentences Abdomen/GI: Soft, non-tender. No distention Skin: Warm, dry with normal turgor. Normal color. MS/ Extremity: Pulses equal, no cyanosis. Neurovascular intact. Full, normal range of motion. Neuro: Awake and alert, GCS 15, oriented to person, place, time, and situation. Moves all extremities. Normal gait. Vital Signs: 13:23 BP 135 / 88; Pulse 91; Resp 18; Temp 97.2; Pulse Ox 98% on R/A; Pain 8/10; ll1 16:53 BP 127 / 80; Pulse 72; Resp 18; Pulse Ox 99% ; Pain 0/10; kb3 13:23 Pain Scale: Adult ll1 16:53 Pain Scale: Adult kb3 MDM: 13:22 Patient medically screened. kb 16:19 Differential diagnosis: non-specific abd pain, colitis, diverticulitis, viral kb gastroenteritis. Data reviewed: vital signs, nurses notes. I considered the following discharge prescriptions or medication management in the emergency department pt was prescribed bentyl by PCP and it is ready for pickup at the pharmacy. Counseling: I had a detailed discussion with the patient and/or guardian regarding the historical points, exam findings, and any diagnostic results supporting the discharge/admit diagnosis, lab results, radiology results, the need for outpatient follow up, a family practitioner, a tool repairer, to return to the emergency department if symptoms worsen or persist or if there are any questions or concerns that arise at home. 04/21 13:29 Order name: CBC with Diff; Complete Time: 15:45 kb 04/21 13:29 Order name: CMP; Complete Time: 15:32 kb 04/21 13:29 Order name: Lipase; Complete Time: 15:32 kb 04/21 13:29 Order name: Urinalysis w/ reflexes; Complete Time: 15:27 kb 04/21 13:29 Order name: CT Chest, Abdomen, Pelvis - W/Contrast; Complete Time: 16:15 kb 04/21 13:29 Order name: IV Saline Lock; Complete Time: 15:07 kb 04/21 13:29 Order name: Labs collected and sent; Complete Time: 15:06 kb Administered Medications: 15:21 Drug: Dicyclomine PO 20 mg PO once Route: PO; kb3 16:00 Follow up: Response: No adverse reaction kb3 15:22 Drug: NS 0.9% IV 1000 ml IV at 1 bolus Per protocol; 1000 mL bolus Route: IV; Rate: 1 kb3 bolus; Site: right antecubital; 16:30 Follow up: Response: No adverse reaction; IV Status: Completed infusion; IV Intake: kb3 1000ml 15:22 Drug: Famotidine IVP 20 mg IVP once; dilute with 10 mL 0.9% NaCl; give over 2 minutes kb3 Route: IVP; Site: right antecubital; 16:00 Follow up: Response: No adverse reaction; Pain is decreased kb3 15:22 Drug: Ondansetron IVP 4 mg IVP once; over 2 minutes Route: IVP; Site: right antecubital;kb3 16:00 Follow up: Response: No adverse reaction; Nausea is decreased kb3 Disposition: 18:59 Co-signature as Attending Physician, Juan C Win MD I reviewed the patient's care rt provided by the Advanced Practice Provider and agree with the diagnosis and treatment plan. Disposition Summary: 04/21/24 16:19 Discharge Ordered Notes: Location: Home kb Condition: Stable kb Diagnosis - Abdominal pain, Generalized kb - Diarrhea, unspecified kb Followup: kb - With: Emergency Department - When: As needed - Reason: Worsening of condition Followup: kb - With: Private Physician - When: 2 - 3 days - Reason: Recheck today's complaints, Continuance of care, Re-evaluation by your physician Discharge Instructions: - Discharge Summary Sheet kb - Abdominal Pain, Adult, [id number] kb - Diarrhea, Adult, [id number] kb Forms: - Medication Reconciliation Form kb - Antibiotic Education kb - Prescription Opioid Use kb - Patient Portal Instructions kb - Leadership Thank You Letter kb Signatures: Dispatcher [employer] EDDiandra Car, LEIGH-C SPECIAL EFFECTS DESIGNER-Ckb Darin Roberts, RN RN ll1 Ana Cristina Burgos, RN RN kb3 Juan C Win MD MD rt Corrections: (The following items were deleted from the chart) 13:30 13:30 Chest Abdomen Pelvis W Con+CT.RAD.BRZ ordered. [facility]
--- NOTE | 2024-04-21 16:20 | ER ---
Nurse's Notes [facility] Name: Alex Whitt Age: 34 yrs Sex: Male : 1990 Arrival Date: 04/21/2024 Time: 13:00 Bed DX3 Private MD: Diagnosis: Abdominal pain, Generalized;Diarrhea, unspecified Presentation: 04/21 13:23 Chief complaint: Patient states: Abdominal pain, SOB, diarrhea, nausea, weight loss for ll1 over a month. [facility] sent him in for evaluation. Coronavirus screen: Client denies travel out of the [place] in the last 14 days. At this time, the client does not indicate any symptoms associated with coronavirus-19. Ebola Screen: Patient denies travel to an Ebola-affected area in the 21 days before illness onset. Initial Sepsis Screen: Does the patient meet any 2 criteria? No. Patient's initial sepsis screen is negative. Does the patient have a suspected source of infection? No. Patient's initial sepsis screen is negative. Risk Assessment: Do you want to hurt yourself or someone else? Patient reports no desire to harm self or others. Onset of symptoms was March 21, 2024. 13:23 Method Of Arrival: Ambulatory ll1 13:23 Acuity: WILD 3 ll1 Triage Assessment: 13:23 General: Appears uncomfortable, ill, Behavior is calm, cooperative, appropriate for ll1 age, Reports feeling ill for fatigue for. Neuro: Reports dizziness, weakness. GI: Reports cramping, diarrhea, nausea, vomiting, weight loss. Historical: - Allergies: 13:22 chemo drug; ll1 - PMHx: 13:22 Anxiety; stage 4 lymphoma; ll1 - PSHx: 13:22 tumor removal (back); ll1 - Immunization history:: Adult Immunizations up to date. - Infectious Disease History:: Denies. - Social history:: Smoking status: Patient denies any tobacco usage or history of. Screenin:00 [facility] ED Fall Risk Assessment (Adult) History of falling in the last 3 months, kb3 including since admission No falls in past 3 months (0 pts) Confusion or Disorientation No (0 pts) Intoxicated or Sedated No (0 pts) Impaired Gait No (0 pts) Mobility Assist Device Used No (0 pt) Altered Elimination No (0 pt) Score/Fall Risk Level 0 - 2 = Low Risk Oriented to surroundings, Maintained a safe environment, Educated pt \T\ family on fall prevention, incl call for assistance when getting out of bed. Abuse screen: Denies threats or abuse. Nutritional screening: No deficits noted. Tuberculosis screening: No symptoms or risk factors identified. Assessment: 15:00 General: Appears in no apparent distress. uncomfortable, Behavior is calm, cooperative. kb3 Pain: Complains of pain in abdomen. GI: Bowel sounds present X 4 quads. Abd is soft Abdomen is tender to palpation in epigastric area, right upper quadrant, left upper quadrant, right lower quadrant and left lower quadrant Reports lower abdominal pain, upper abdominal pain, cramping, diarrhea, nausea, vomiting. Vital Signs: 13:23 BP 135 / 88; Pulse 91; Resp 18; Temp 97.2; Pulse Ox 98% on R/A; Pain 8/10; ll1 16:53 BP 127 / 80; Pulse 72; Resp 18; Pulse Ox 99% ; Pain 0/10; kb3 13:23 Pain Scale: Adult ll1 16:53 Pain Scale: Adult kb3 ED Course: 13:01 Patient arrived in ED. mr 13:22 Diandra Rae, [facility] kb 13:22 Juan C Win MD is Attending Physician. kb 13:22 Arm band placed on. ll1 13:25 Triage completed. ll1 15:00 Patient has correct armband on for positive identification. Provided Education on: Plan kb3 of care, meds, CT scan. 15:07 CBC with Diff Sent. kb3 15:07 CMP Sent. kb3 15:07 Lipase Sent. kb3 15:07 Urinalysis w/ reflexes Sent. kb3 15:15 Radiology exam delayed due to lab results not completed at this time. (BUN/Creatinine). nj 15:[address] kb3 15:48 CT Chest, Abdomen, Pelvis - W/Contrast In Process Unspecified. EDMS 16:45 No provider procedures requiring assistance completed. IV discontinued, intact, kb3 bleeding controlled, No redness/swelling at site. Administered Medications: 15:21 Drug: Dicyclomine PO 20 mg PO once Route: PO; kb3 16:00 Follow up: Response: No adverse reaction kb3 15:22 Drug: NS 0.9% IV 1000 ml IV at 1 bolus Per protocol; 1000 mL bolus Route: IV; Rate: 1 kb3 bolus; Site: right antecubital; 16:30 Follow up: Response: No adverse reaction; IV Status: Completed infusion; IV Intake: kb3 1000ml 15:22 Drug: Famotidine IVP 20 mg IVP once; dilute with 10 mL 0.9% NaCl; give over 2 minutes kb3 Route: IVP; Site: right antecubital; 16:00 Follow up: Response: No adverse reaction; Pain is decreased kb3 15:22 Drug: Ondansetron IVP 4 mg IVP once; over 2 minutes Route: IVP; Site: right antecubital;kb3 16:00 Follow up: Response: No adverse reaction; Nausea is decreased kb3 Medication: 15:00 VIS not applicable for this client. kb3 Intake: 16:30 IV: 1000ml; Total: 1000ml. kb3 Outcome: 16:19 Discharge ordered by MD. kb 16:54 Patient left the ED. kb3 Signatures: Dispatcher [employer] EDMS Diandra Rae, NONAC MANUFACTURING TECHNOLOGIST-CkMignon Billingsley, Reg Reg mr Darci Silvestre Lynsay, RN RN ll1 Ana Cristina Burgos, RN RN kb3 Corrections: (The following items were deleted from the chart) 16:52 16:51 General: Appears in no apparent distress. uncomfortable, Behavior is calm, kb3 cooperative, kb3 16:52 16:51 Pain: Complains of pain in abdomen kb3 kb3 16:52 16:51 GI: Bowel sounds present X 4 quads. Abd is soft Abdomen is tender to palpation in kb3 epigastric area, right upper quadrant, left upper quadrant, right lower quadrant and left lower quadrant Reports lower abdominal pain, upper abdominal pain, cramping, diarrhea, nausea, vomiting, kb3
[2024-04-21 17:05] VITALS: BP 127/80; TEMP 97.2; O2SAT 99
== END 2024-04-21 16:54 | disposition home or self-care (01) ==
LOC: ER 13:00
DX: R10.84 Generalized abdominal pain (principal); R19.7 Diarrhea, unspecified; Z88.8 Allergy status to other drugs, medicaments and biological substances
CPT/HCPCS: 96361; 85025; 81001; 36415; 83690; 80053; 71260; 74177; 96375; 96374; 99284; Q9967; J2405; J7030

== ENCOUNTER 2024-12-22 12:03 | Emergency (ER) | payer OTHER ==
--- NOTE | 2024-12-22 13:46 | RAD REPORT ---
EXAM: Chest Single View HISTORY: 34 years Male Gen weakness in lymphoma pt COMPARISON: 02/16/2023 FINDINGS: LUNGS/PLEURA: The lungs are clear. No pleural effusions or pneumothorax. No pulmonary edema. CARDIAC/MEDIASTINUM: The cardiac silhouette is within normal limits. UPPER ABDOMEN: No significant abnormality. BONES: No acute abnormality. LINES/TUBES/OTHER: Portacath. IMPRESSION: No evidence of acute cardiopulmonary disease.
[2024-12-22] MEDS ORDERED: NA CHLORIDE 0.9% 1,000 ML ONE (13:54)
[2024-12-22 14:03] LABS: Absolute Lymphocytes (CBC) 1.1 K/uL (0.7-4.9); Absolute Monocytes 0.4 K/uL (0.1-1.3); Absolute Neutrophil 3.4 K/uL (1.8-8.0); Basophils % 0.3 % (0-1.3); Eosinophils % 0.5 % (0-4.4); Hematocrit 46.9 % (39.6-49.0); Hemoglobin 16.5 g/dL (13.6-17.9); Lymphocytes % 22.7 % (15.3-44.8); MCH 34.8 pg (27.0-35.0); MCHC 35.3 g/dL (32.0-36.0); MCV 98.7 fL (80-100); MPV 7.3 fL (7.6-11.3); Monocytes % 7.5 % (3.3-12.3); Nucleated Red Blood Cells % 0.1 % (0-0); Platelets 207 thou/uL (152-406); RBC Red Blood Cell Count 4.75 M/uL (4.33-5.43)
[2024-12-22 14:16] LABS: PT Prothrombin Time 11.8 SECONDS (10.0-13.0); PTT, Activated Partial Thromb 28.9 SECONDS (24.3-36.9); Protime INR 1.04
[2024-12-22 14:20] LABS: Albumin 3.8 g/dL (3.4-5.0); Anion Gap 8.8 mEq/L (5.0-15.0); Bilirubin Total 0.5 mg/dL (0.2-1.0); Globulin 3.7 g/dL (2.3-3.5); Potassium 3.8 mEq/L (3.5-5.1); Protein, Total 7.5 g/dL (6.4-8.2)
--- NOTE | 2024-12-22 14:20 | RAD REPORT ---
EXAMINATION: CT HEAD WITHOUT CONTRAST CT CERVICAL SPINE WITHOUT CONTRAST CLINICAL INDICATION: Male, 34 years old. h/o B-Cell lymphoma now with recurrent sx TECHNIQUE: Axial CT images from the skull base to the vertex without intravenous contrast. Axial CT i mages through the cervical spine were obtained without intravenous contrast. Sagittal and coronal reformatted images were created from the data set. Coronal and sagittal reformatted images were creat ed from the data set. One or more of the following dose reduction techniques were used: Automated exposure control, adjustment of the mA and/or kV according to patient size, and/or iterative reconstr uction. Unless otherwise specified, incidental findings do not require dedicated imaging follow-up. [id number]. COMPARISON: No prior exam. FINDINGS: Head: INTRACRANIAL: No acute intracranial hemorrhage. No hydrocephalus. No mass effect or midline shift. No significant white matter disease. VASCULATURE: No visualized abnormalities in the arteries or dural venous sinuses. SCALP/SKULL: No calvarial fracture identified. No acute soft tissue abnormality. SINUSES: The visualized paranasal sinuses and mastoid air cells are predominantly clear. No significa nt mastoid fluid. Cervical spine: ALIGNMENT: The cervical spine has normal alignment without scoliosis or spondylolisthesis. BONE: Vertebral body heights are maintained. No aggressive osseous lesions. DEGENERATIVE: No significant focal degenerative changes. SOFT TISSUE: No significant abnormalities in the soft tissue of the neck. The visualized lung apices are clear. IMPRESSION: No acute intracranial abnormality. No acute fracture or traumatic malalignment of the cervical spine.
--- NOTE | 2024-12-22 14:26 | RAD REPORT ---
EXAM: CT CHEST, ABDOMEN AND PELVIS WITHOUT CONTRAST CLINICAL INDICATION: Male, 34 years HX OF LYMPHOMA, HAVING SIMILAR SYMPTOMS TECHNIQUE: CT chest, abdomen and pelvis was performed, with IV contrast, as per department protocol. Axial, sagittal and coronal reconstructions were obtained. One or more of the following dose reduction techniques were used: Automated exposure control, adjustment of the mA and/or kV according to the patient size, and/or iterative reconstruction. Unless otherwise specified, incidental findings do not require dedicated imaging follow-up. [id number]. COMPARISON: 04/21/2024 FINDINGS: THORAX: LOWER NECK AND CHEST WALL: Right upper chest wall Port-A-Cath. LUNGS AND AIRWAYS: Airways are clear. No evidence of airspace or interstitial process.No suspicious a nd/or stable pulmonary nodules. PLEURA: No pleural effusion. No pneumothorax. MEDIASTINUM AND LYMPH NODES: No mediastinal mass or fluid collection. Normal size mediastinal, hilar, and axillary lymph nodes. THORACIC AORTA: No thoracic aortic aneurysm. PULMONARY ARTERIES: Caliber is within normal limits. HEART: Normal heart size. No coronary calcifications.No significant pericardial effusion. ABDOMEN/PELVIS: UPPER GI: No significant abnormality. LIVER: Hepatic steatosis, but otherwise unremarkable. GALLBLADDER/BILE DUCTS: No biliary ductal dilatation.? PANCREAS: No mass, ductal dilation, or yusuf-pancreatic fluid. SPLEEN: Unremarkable. ADRENALS: No adrenal masses. KIDNEYS AND URETERS: No hydronephrosis.No suspicious renal mass.No renal calculi. ABDOMINAL AORTA AND OTHER VESSELS: Mild atherosclerotic changes. PERITONEUM: No abnormal free fluid. No free air. LYMPH NODES: No pathologic lymphadenopathy. ABDOMINAL WALL: Small fat-containing umbilical hernia SMALL BOWEL/COLON: Short segment intussusception identified in the left hemiabdomen involving the sma ll bowel with approximately 3.6 cm of intussuscepted small bowel. No bowel obstruction.Normal appendix. URINARY BLADDER: Underdistended but grossly unremarkable. REPRODUCTIVE ORGANS: No pathologic process. COMBINED: MUSCULOSKELETAL: Chronic deformity with mixed lytic and sclerotic process at T9 which is unchanged. ADDITIONAL FINDINGS: None. IMPRESSION: Short segment small bowel-small bowel intussusception in the left hemiabdomen without identifiable ma ss or lymphadenopathy. No upstream bowel dilatation or inflammatory changes. This is typically a transient finding of little clinical significance but suggest clinical correlation. No evidence of recurrent lymphoma within the chest, abdomen, or pelvis. Osseous lesion at T9 is uncha nged.
--- NOTE | 2024-12-22 15:04 | EDPHYS ---
Physician Documentation [facility] Name: Alex Whitt Age: 34 yrs Sex: Male : 1990 Arrival Date: 12/22/2024 Time: 12:03 Bed 13 Private MD: ED Physician Cierra Adrian HPI: 12/22 13:41 This 34 yrs old Male presents to ER via Ambulatory with complaints of Body sp3 Numbness. 13:41 34-year-old male with history of prior stage IV lymphoma B-cell now status post surgery sp3 and chemotherapy with no evidence of disease with screening PET scans with last PET scan last year being normal. His next scan is in January 2025. He presents today to the ED with chief complaint abdominal/trunk numbness and tingling coupled with some bodyaches and also mild cough. This is very similar to how his first episode presented where he had cancer load near his spine and nerve roots. He denies any bowel or bladder control issue or other significant neurological symptoms. He also denies any fever, weight loss, headache, neck pain, chest pain, shortness of breath, or any other concerning signs or symptoms on ROS at this time. All of his cancer treatment was at [facility].. Historical: - Allergies: 13:07 Rituxan; ap3 - PMHx: 13:07 Anxiety; stage 4 lymphoma; ap3 - PSHx: 13:07 tumor removal (back); ap3 - Immunization history:: Client reports having NOT received the Covid vaccine. Flu vaccine is not up to date. - Infectious Disease History:: Denies. - Social history:: Smoking status: Patient denies any tobacco usage or history of. Patient uses street drugs, marijuana. ROS: 13:43 Constitutional: Negative for fever, chills, and weight loss, Eyes: Negative for injury, sp3 pain, redness, and discharge, ENT: Negative for injury, pain, and discharge, Neck: Negative for injury, pain, and swelling, Cardiovascular: Negative for chest pain, palpitations, and edema, Respiratory: Negative for shortness of breath, cough, wheezing, and pleuritic chest pain, Abdomen/GI: Negative for abdominal pain, nausea, vomiting, diarrhea, and constipation, Back: Negative for injury and pain, Psych: Negative for depression, anxiety, suicide ideation, homicidal ideation, and hallucinations, Allergy/Immunology: Negative for hives, rash, and allergies, Endocrine: Negative for neck swelling, polydipsia, polyuria, polyphagia, and marked weight changes, 13:43 All other systems are negative, Exam: 13:43 Constitutional: This is a well developed, well nourished patient who is awake, alert, sp3 and in no acute distress. Head/Face: Normocephalic, atraumatic. Eyes: Pupils equal round and reactive to light, extra-ocular motions intact. Lids and lashes normal. Conjunctiva and sclera are non-icteric and not injected. Cornea within normal limits. Periorbital areas with no swelling, redness, or edema. Neck: Trachea midline, no thyromegaly or masses palpated, and no cervical lymphadenopathy. Supple, full range of motion without nuchal rigidity, or vertebral point tenderness. No Meningismus. Chest/axilla: Normal chest wall appearance and motion. Nontender with no deformity. No lesions are appreciated. Respiratory: Lungs have equal breath sounds bilaterally, clear to auscultation and percussion. No rales, rhonchi or wheezes noted. No increased work of breathing, no retractions or nasal flaring. Abdomen/GI: Soft, non-tender, with normal bowel sounds. No distension or tympany. No guarding or rebound. No evidence of tenderness throughout. Back: No spinal tenderness. No costovertebral tenderness. Full range of motion. Skin: Warm, dry with normal turgor. Normal color with no rashes, no lesions, and no evidence of cellulitis. MS/ Extremity: Pulses equal, no cyanosis. Neurovascular intact. Full, normal range of motion. Neuro: Awake and alert, GCS 15, oriented to person, place, time, and situation. Cranial nerves II-XII grossly intact. Motor strength 5/5 in all extremities. Sensory grossly intact. Cerebellar exam normal. Normal gait. 13:43 Cardiovascular: Rate: tachycardic, Vital Signs: 13:04 BP 102 / 90; Pulse 112; Resp 18; Temp 98; Pulse Ox 100% ; Weight 68.04 kg; Height 5 ft. ap3 8 in. ; Pain 8/10; 14:15 BP 112 / 91; Pulse 90; Resp 15; Pulse Ox 98% ; cm10 14:30 BP 117 / 86; Pulse 95; Resp 18; Pulse Ox 100% ; cm10 15:00 BP 118 / 87; Pulse 96; Resp 19; Pulse Ox 100% ; cm10 13:04 Body Mass Index 22.81 (68.04 kg, 172.72 cm) ap3 13:04 Pain Scale: Adult ap3 MDM: 12:31 Medical Screening Exam initiated sp3 13:44 Data reviewed: vital signs, nurses notes, old medical records, lab test result(s), sp3 radiologic studies. ED course: 34-year-old male with history of stage IV B-cell lymphoma now with recurrent symptoms of body numbness and bodyaches consistent with prior presentation. He is currently no evidence of disease. We will evaluate with full set of labs, cultures, and CT scan of the head, C-spine, chest, abdomen, and pelvis with IV contrast. IV fluids as well. Disposition pending workup and patient course. Differential diagnosis includes dehydration, upper respiratory infection, viral illness, cancer resurgence, electrolyte disturbance, among others.. 15:03 ED course: Spinal lesion is old and unchanged. Intussusception is transient and not sp3 clinically significant. No evidence of recurrence of cancer disease. Patient feels slightly better. We will be discharging home at this time and he will have close follow-up with his oncology team.. 12/22 13:10 Order name: Blood Culture Adult (2) sp3 12/22 13:10 Order name: CBC with Diff; Complete Time: 14:44 sp3 12/22 13:10 Order name: CMP; Complete Time: 14:44 sp3 12/22 13:10 Order name: Lactate w/ 2H reflex if indic.; Complete Time: 14:44 sp3 12/22 13:10 Order name: Protime (+inr); Complete Time: 14:44 sp3 12/22 13:10 Order name: Ptt, Activated; Complete Time: 14:44 sp3 12/22 13:10 Order name: Chest Single View XRAY; Complete Time: 13:47 sp3 12/22 13:58 Order name: Head C Spine Mpr Wo Con; Complete Time: 14:44 EDMS 12/22 14:00 Order name: Chest Abdomen Pelvis W Cont; Complete Time: 14:44 EDMS 12/22 12:32 Order name: Vital Signs; Complete Time: 15:05 sp3 12/22 13:10 Order name: Cardiac monitoring; Complete Time: 14:29 sp3 12/22 13:10 Order name: EKG - Nurse/Tech; Complete Time: 14:29 3 12/22 13:10 Order name: IV Saline Lock - Large Bore; Complete Time: 13:52 sp3 12/22 13:10 Order name: Labs collected and sent; Complete Time: 13:52 3 12/22 13:10 Order name: O2 Per Protocol; Complete Time: 13:11 sp3 12/22 13:10 Order name: O2 Sat Monitoring; Complete Time: 14:49 sp3 12/22 13:10 Order name: Vital Signs; Complete Time: 13:11 sp3 Administered Medications: 14:20 Drug: NS 0.9% IV 1000 ml IV at 1 bolus Per protocol; to be given as a bolus over 60 cm10 minutes Route: IV; Rate: 1 bolus; Site: right antecubital; 15:32 Follow up: Response: No adverse reaction; IV Status: Completed infusion; IV Intake: cm10 1000ml Disposition Summary: 12/22/24 15:04 Discharge Ordered Notes: Location: Home sp3 Condition: Stable sp3 Diagnosis - Paresthesia sp3 Followup: sp3 - With: Private Physician - When: Upon discharge from the Emergency Department - Reason: Continuance of care Discharge Instructions: - Discharge Summary Sheet sp3 - Paresthesia sp3 Forms: - Medication Reconciliation Form sp3 - Antibiotic Education sp3 - Prescription Opioid Use sp3 - Patient Portal Instructions sp3 - Leadership Thank You Letter sp3 Signatures: Dispatcher [employer] Megha Beth RN RN ap3 Cierra Adrian MD MD sp3 Elidia Davidson RN RN cm10 Corrections: (The following items were deleted from the chart) 13:08 13:07 Allergies: chemo drug; ap3 ap3 13:10 13:10 BLOOD CULTURE*+BA.LAB.BRZ ordered. EDMS EDMS 13:10 13:10 CBC+H.LAB.BRZ ordered. EDMS EDMS 13:10 13:10 COMPREHENSIVE METABOLIC PANEL+C.LAB.BRZ ordered. EDMS EDMS 13:10 13:10 LACTATE+C.LAB.BRZ ordered. EDMS EDMS 13:10 13:10 PROTIME (+INR)+COAG.LAB.BRZ ordered. EDMS EDMS 13: 13:10 PTT, ACTIVATED+COAG.LAB.BRZ ordered. EDMS EDMS 13: 13:10 Urinalysis+U.LAB.BRZ ordered. EDMS EDMS 13: 13:10 Chest Single View+RAD.RAD.BRZ ordered. EDMS EDMS 13:41 13:41 Head C Spine CAP W Con+CT.RAD.BRZ ordered. EDMS EDMS
--- NOTE | 2024-12-22 15:04 | ER ---
Nurse's Notes [facility] Name: Alex Whitt Age: 34 yrs Sex: Male : 1990 Arrival Date: 12/22/2024 Time: 12:03 Bed 13 Private MD: Diagnosis: Paresthesia Presentation: 12/22 13:04 Chief complaint: Patient states: he feels numb from his chest area down, and the last ap3 time he felt this way he was diagnosed with spinal cancer. patient states his last scan was in July and it was clear. Patient states the feelings he is having now are having an affect on his eating habits and he is unable to sit still. He reports he feels as though the lower half of his body is asleep. Patient states this started approx 3 or 4 days ago, he states "the numbness has always been there, It has just gotten worse, to the point where it is messing with me more.". Coronavirus screen: At this time, the client does not indicate any symptoms associated with coronavirus-19. Ebola Screen: No symptoms or risks identified at this time. Initial Sepsis Screen: Does the patient meet any 2 criteria? HR > 90 bpm. Does the patient have a suspected source of infection? No. Patient's initial sepsis screen is negative. Risk Assessment: Do you want to hurt yourself or someone else? Patient reports no desire to harm self or others. Onset of symptoms is unknown. 13:04 Method Of Arrival: Ambulatory ap3 13:04 Acuity: WILD 3 ap3 Triage Assessment: 13:08 General: Appears in no apparent distress. Behavior is calm, cooperative, appropriate ap3 for age. Pain: Complains of pain in lower body pain. Neuro: Level of Consciousness is awake, alert, obeys commands, Oriented to person, place, time, situation, Speech is normal. Neuro: Reports numbness. Cardiovascular: Patient's skin is warm and dry. Respiratory: Airway is patent Respiratory effort is even, unlabored, Respiratory pattern is regular, symmetrical. Historical: - Allergies: 13:07 Rituxan; ap3 - PMHx: 13:07 Anxiety; stage 4 lymphoma; ap3 - PSHx: 13:07 tumor removal (back); ap3 - Immunization history:: Client reports having NOT received the Covid vaccine. Flu vaccine is not up to date. - Infectious Disease History:: Denies. - Social history:: Smoking status: Patient denies any tobacco usage or history of. Patient uses street drugs, marijuana. Screenin:09 Abuse screen: Denies threats or abuse. Nutritional screening: No deficits noted. ap3 Tuberculosis screening: No symptoms or risk factors identified. 13:10 [facility] ED Fall Risk Assessment (Adult) History of falling in the last 3 months, ap3 including since admission No falls in past 3 months (0 pts) Confusion or Disorientation No (0 pts) Intoxicated or Sedated Yes (3 pts) Impaired Gait No (0 pts) Mobility Assist Device Used No (0 pt) Altered Elimination No (0 pt) Score/Fall Risk Level 0 - 2 = Low Risk Oriented to surroundings, Maintained a safe environment, Educated pt \\T\\ family on fall prevention, incl call for assistance when getting out of bed, Assessed \\T\\ reinforced patient's understanding of fall precautions, Hourly rounding (assess needs \\T\\ fall precautionary measures) done, Used ambulatory aids as needed (educated on \\T\\ assisted with). Assessment: 14:20 General: Appears in no apparent distress. comfortable, Behavior is calm, cooperative, cm10 appropriate for age. Neuro: No deficits noted. Level of Consciousness is awake, alert, obeys commands, Oriented to person, place, time, situation, Appropriate for age. Respiratory: No deficits noted. Airway is patent Respiratory effort is even, unlabored, Respiratory pattern is regular, symmetrical. GI: Bowel sounds present X 4 quads. Abd is soft X 4 quads Abdomen is tender to palpation X 4 quads. Musculoskeletal: No deficits noted. Range of motion: intact in all extremities. Vital Signs: 13:04 BP 102 / 90; Pulse 112; Resp 18; Temp 98; Pulse Ox 100% ; Weight 68.04 kg; Height 5 ft. ap3 8 in. ; Pain 8/10; 14:15 BP 112 / 91; Pulse 90; Resp 15; Pulse Ox 98% ; cm10 14:30 BP 117 / 86; Pulse 95; Resp 18; Pulse Ox 100% ; cm10 15:00 BP 118 / 87; Pulse 96; Resp 19; Pulse Ox 100% ; cm10 13:04 Body Mass Index 22.81 (68.04 kg, 172.72 cm) ap3 13:04 Pain Scale: Adult ap3 ED Course: 12:05 Patient arrived in ED. mr 12:07 Cierra Adrian MD is Attending Physician. sp3 13:07 Triage completed. ap3 13:10 Arm band placed on right wrist. ap3 13:24 Chest Single View XRAY In Process Unspecified. EDMS 13:33 Elidia Davidson, RN is Primary Nurse. cm10 13:44 Initial lab(s) drawn, by me, sent to lab. First set of blood cultures drawn Second set cc6 of blood cultures drawn by me. Inserted saline lock: 20 gauge in right antecubital area, using aseptic technique. Blood collected. Flushed with 10 mL NS. 13:52 Blood Culture Adult (2) Sent. cc6 13:52 CBC with Diff Sent. cc6 13:52 CMP Sent. cc6 13:52 Lactate w/ 2H reflex if indic. Sent. cc6 13:52 Protime (+inr) Sent. cc6 13:52 Ptt, Activated Sent. cc6 14:06 Head C Spine Mpr Wo Con In Process Unspecified. EDMS 14:06 Chest Abdomen Pelvis W Cont In Process Unspecified. EDMS 14:20 Client placed on continuous cardiac and pulse oximetry monitoring. NIBP monitoring cm10 applied. gambling monitor on. 15:33 Patient has correct armband on for positive identification. Provided Education on: cm10 Follow-up instructions. 15:34 No provider procedures requiring assistance completed. IV discontinued, intact, cm10 bleeding controlled, No redness/swelling at site. Pressure dressing applied. Administered Medications: 14:20 Drug: NS 0.9% IV 1000 ml IV at 1 bolus Per protocol; to be given as a bolus over 60 cm10 minutes Route: IV; Rate: 1 bolus; Site: right antecubital; 15:32 Follow up: Response: No adverse reaction; IV Status: Completed infusion; IV Intake: cm10 1000ml Medication: 15:33 VIS not applicable for this client. cm10 Intake: 15:32 IV: 1000ml; Total: 1000ml. cm10 Outcome: 15:04 Discharge ordered by . sp3 15:34 Discharged to home ambulatory, with family, cm10 15:34 Condition: good 15:34 Discharge instructions given to patient, Instructed on discharge instructions, follow up and referral plans. Demonstrated understanding of instructions, follow-up care, 15:34 Patient left the ED. cm10 Signatures: Dispatcher [employer] EDMS Mignon Garces, Reg Reg mr Megha Coffey RN RN ap3 Cierra Adrian MD MD sp3 Elidia Davidson RN RN cm10 Olya Payne cc6 Corrections: (The following items were deleted from the chart) 13:08 13:07 Allergies: chemo drug; ap3 ap3
[2024-12-22 15:39] VITALS: TEMP 98
[2024-12-22 15:42] VITALS: O2SAT 100
[2024-12-22 15:44] VITALS: BP 118/87
--- NOTE | 2024-12-26 12:16 | EKG ---
Test Date: 2024-12-22 Test Time: 14:26:13 Manager Of Manufacturing: JENN MEASUREMENT RESULTS: Intervals: Rate: 95 MT: 130 QRSD: 80 QT: 372 QTc: 467 Irene: P: 65 MT: 130 QRS: 80 T: 38 INTERPRETIVE STATEMENTS: Normal sinus rhythm Normal ECG Compared to ECG 09/02/2005 02:07:00 No significant changes Electronically Signed On 12-26-24 12:09:06 [employer] CLERK by Gomez Davis
== END 2024-12-22 15:34 | disposition home or self-care (01) ==
LOC: ER 12:03
DX: R20.2 Paresthesia of skin (principal); R20.0 Anesthesia of skin; Z85.72 Personal history of non-Hodgkin lymphomas
CPT/HCPCS: 87040 ×2; 85025; 36415; 85610; 83605; 85730; 80053; 70450; 72125; 71260; 74177; 71045; 96360; 99285; Q9967; J7030; 93005